=== PATIENT | female | born 1995 | race African-American/Black ===

== ENCOUNTER 2022-05-27 01:57 | Outpatient (CLI) | payer MEDICARE, OTHER, SELFPAY | END 2022-05-27 01:58 | disposition home or self-care (01) | LOC: AMB 06-05 11:19 | PROVIDERS: Visit Provider Internal Medicine | DX: R10.9 Unspecified abdominal pain (principal) | CPT/HCPCS: A0425; A0429 ==

== ENCOUNTER 2022-05-27 02:27 | Emergency (ER) | payer MEDICARE, OTHER, SELFPAY ==
[2022-05-27 02:29] VITALS: BP 120/78; PULSE 70; RESP 22; TEMP 36.3; O2SAT 95; BMI 50.6
--- NOTE | 2022-05-27 02:41 | ED_ITS ---
HPI - Abdominal Pain General Chief Complaint: Abdominal Pain Stated Complaint: Abdominal pain Time Seen by Provider: 05/27/22 02:29 History of Present Illness HPI narrative: Patient is a a 27-year-old woman with chronic abdominal pain comes in tonight stating that her abdominal pain is slightly worse than normal. She [facility]ad[facility] her [facility] this is not been terribly effective. The pain is in the mid abdomen and is paroxysmal. Comes in by ambulance for refuses pain medication route. She has had no fevers no chills no dysuria no nausea no vomiting. She has had both her gallbladder and her appendix removed. She does have renal insufficiency with baseline creatinine of roughly 3 secondary to lithium toxicity. Pain is mild no other associated symptoms. Related Data Home Medications Medication Instructions Recorded Confirmed acetaminophen 325 mg tablet mg 05/27/22 acetaminophen 500 mg tablet mg 05/27/22 albuterol sulfate 90 mcg/actuation INHALATION 05/27/22 aerosol inhaler amlodipine 10 mg tablet mg 05/27/22 atorvastatin 40 mg tablet mg 05/27/22 blood sugar diagnostic (Accu-Chek 05/27/22 05/27/22 Guide test strips) calcium carbonate 200 mg calcium mg 05/27/22 (500 mg) chewable tablet (Calcium Antacid) carbamide peroxide 6.5 % ear drops drp OTIC (EAR) 05/27/22 (Ear Drops (carbamide peroxide)) carboxymethylcellulose sodium 0.5 drp OPHTHALMIC (EYE) 05/27/22 % eye drops in a dropperette (Lubricating Plus) cholecalciferol (vitamin D3) 25 05/27/22 mcg (1,000 unit) capsule cholecalciferol (vitamin D3) 25 05/27/22 mcg (1,000 unit) tablet clindamycin phosphate 1 % topical TOPICAL 05/27/22 gel cyanocobalamin (vitamin B-12) mcg 05/27/22 1,000 mcg tablet (Vitamin B-12) cyanocobalamin (vitamin B-12) 100 mcg 05/27/22 mcg tablet (Vitamin B-12) cyclobenzaprine 5 mg tablet mg 05/27/22 diphenhydramine HCl 25 mg capsule mg 05/27/22 (Banophen) divalproex 250 mg tablet,delayed mg PO 05/27/22 release divalproex 500 mg tablet,extended mg PO 05/27/22 release 24 hr dulaglutide 0.75 mg/0.5 mL mg SUBCUT 05/27/22 subcutaneous pen injector (Trulicity) dulaglutide 1.5 mg/0.5 mL mg SUBCUT 05/27/22 subcutaneous pen injector (Trulicity) epinephrine 0.3 mg/0.3 mL 05/27/22 injection, auto-injector famotidine 20 mg tablet mg 05/27/22 fluoxetine 10 mg capsule mg 05/27/22 fluoxetine 20 mg capsule mg 05/27/22 fluticasone 100 mcg-salmeterol 50 INHALATION 05/27/22 mcg/dose blistr powdr for inhalation (Advair Diskus) gabapentin 100 mg capsule mg 05/27/22 lancets (Accu-Chek Fastclix Lancet 05/27/22 05/27/22 Drum) levothyroxine 100 mcg tablet mcg 05/27/22 liraglutide 0.6 mg/0.1 mL (18 mg/3 mg SUBCUT 05/27/22 mL) subcutaneous pen injector (Victoza 3-Guero) loratadine 10 mg tablet (Allergy mg 05/27/22 Relief (loratadine)) olanzapine 10 mg tablet mg 05/27/22 olanzapine 15 mg tablet mg 05/27/22 olanzapine 5 mg tablet mg 05/27/22 omeprazole 40 mg capsule,delayed mg 05/27/22 release ondansetron 4 mg disintegrating mg 05/27/22 tablet propranolol 40 mg tablet mg 05/27/22 tramadol 50 mg tablet mg 05/27/22 trazodone 100 mg tablet mg 05/27/22 Review of Systems Status of ROS Reports: 10 or more systems reviewed and unremarkable except as noted in History and below Exam Narrative: Exam Narrative: EXAM GENERAL: Patient appears comfortable and well. Obese EYES: No scleral icterus. LYMPH: No supraclavicular or cervical lymphadenopathy. SKIN: Visible skin seen during exam normal or with benign process only. EXT: No dependent lower extremity pedal edema. HEART: Regular rate and rhythm with no murmurs, rubs, or gallops. LUNGS: Clear to auscultation bilaterally with no crackles or wheezes. ABD: Soft, non tender, non distended. PSYCH: Good eye contact, speech is not pressured. Const: Vital Signs, click to edit/add: Vital Signs - 24 hr 05/27/22 02:29 Temperature 97.4 F L Pulse Rate [Right Brachial] 70 Respiratory Rate 22 Blood Pressure [Le ft Upper Arm] 120/78 Pulse Oximetry 95 Course Course Hospital Course: CBC basic metabolic panel UA reviewed and at baseline. Vital Signs Vital signs: Initial Vital Signs Temperature 97.4 F L 05/27/22 02:29 Temperature Source Temporal Artery Scan 05/27/22 02:29 Pulse Rate 70 05/27/22 02:29 Pulse Rhythm 05/27/22 02:29 Pulse Strength 3+ Normal 05/27/22 02:29 Respiratory Rate 22 05/27/22 02:29 Blood Pressure 120/78 05/27/22 02:29 Blood Pressure Mean 92 05/27/22 02:29 Blood Pressure Position Sitting 05/27/22 02:29 Pulse Oximetry 95 05/27/22 02:29 Oxygen Delivery Method 05/27/22 02:29 Vital Signs Temperature 97.4 F L 05/27/22 02:29 Pulse Rate 70 05/27/22 02:29 Respiratory Rate 22 05/27/22 02:29 Blood Pressure 120/78 05/27/22 02:29 Pulse Oximetry 95 05/27/22 02:29 Temperature 97.4 F L 05/27/22 02:29 Pulse Rate 70 05/27/22 02:29 Respiratory Rate 22 05/27/22 02:29 Blood Pressure 120/78 05/27/22 02:29 Pulse Oximetry 95 05/27/22 02:29 MDM - Abdominal Pain MDM Narrative Medical decision making narrative: Patient has complex history of do not believe she has acute abdominal issues tonight. Her abdominal exam is negative with aggressive palpation. She does have positive bowel sounds and states her symptoms are very mild. I did review her previous record and she has been in with similar presentations in the past with unremarkable workup. This time will continue her outpatient management she will follow-up with her primary physician as needed. Discharge Plan Discharge Clinical Impression: Abdominal pain Patient Disposition: Home, Self-Care Condition: Stable Instructions: Abdominal Pain (ED) Additional Instructions: Continue current care. Follow up with primary physician as needed. Discharge Diet: Regular Prescriptions: No Action atorvastatin 40 mg tablet 0RF acetaminophen 325 mg tablet 0RF cyanocobalamin (vitamin B-12) [Vitamin B-12] 100 mcg tablet 0RF divalproex 250 mg tablet,delayed release (DR/EC) PO 0RF olanzapine 5 mg tablet 0RF cyanocobalamin (vitamin B-12) [Vitamin B-12] 1,000 mcg tablet 0RF olanzapine 10 mg tablet 0RF (DME) Accu-Chek Guide test strips Strip MISCELLANEOUS 0RF Label Comments: USE TO TEST TWICE DAILY omeprazole 40 mg capsule,delayed release(DR/EC) 0RF tramadol 50 mg tablet 0RF acetaminophen 500 mg tablet 0RF levothyroxine 100 mcg tablet 0RF (DME) lancets [Accu-Chek Fastclix Lancet Drum] Mis MISCELLANEOUS 0RF Label Comments: USE DIRECTED propranolol 40 mg tablet 0RF famotidine 20 mg tablet 0RF clindamycin phosphate 1 % gel TOPICAL 0RF trazodone 100 mg tablet 0RF amlodipine 10 mg tablet 0RF diphenhydramine HCl [Banophen] 25 mg capsule 0RF divalproex 500 mg tablet extended release 24 hr PO 0RF calcium carbonate [Calcium Antacid] 200 mg calcium (500 mg) tablet,chewable 0RF fluoxetine 10 mg capsule 0RF Ear Drops (carbamide peroxide) 6.5 % drops OTIC (EAR) 0RF olanzapine 15 mg tablet 0RF gabapentin 100 mg capsule 0RF epinephrine 0.3 mg/0.3 mL auto-injector 0RF fluticasone propion-salmeterol [Advair Diskus] 100-50 mcg/dose blister with device INHALATION 0RF albuterol sulfate 90 mcg/actuation HFA aerosol inhaler INHALATION 0RF ondansetron 4 mg tablet,disintegrating 0RF fluoxetine 20 mg capsule 0RF loratadine [Allergy Relief (loratadine)] 10 mg tablet 0RF cholecalciferol (vitamin D3) 25 mcg (1,000 unit) capsule 0RF carboxymethylcellulose sodium [Lubricating Plus] 0.5 % dropperette OPHTHALMIC (EYE) 0RF cyclobenzaprine 5 mg tablet 0RF cholecalciferol (vitamin D3) 25 mcg (1,000 unit) tablet 0RF Victoza 3-Guero 0.6 mg/0.1 mL (18 mg/3 mL) pen injector SUBCUT 0RF Trulicity 0.75 mg/0.5 mL pen injector SUBCUT 0RF Trulicity 1.5 mg/0.5 mL pen injector SUBCUT 0RF Stand Alone Forms: [facility] Info Instructions
[2022-05-27 03:14] LABS: Basophils Absolute Auto 0.04 K/uL (0.00-0.30); Basophils Percent Auto 0.6 % (0.0-3.0); Eosinophils Absolute Auto 0.09 K/uL (0.00-0.50); Eosinophils Percent Auto 1.3 % (0.0-7.0); Hematocrit 35.9 % (33.0-51.0); Hemoglobin* 11.4 gm/dL (12.0-16.0); Immature Granulocytes Abs Auto 0.04 K/uL (0.00-0.30); Lymphocytes Absolute Auto 2.74 K/uL (0.90-2.90); Lymphocytes Percent Auto 38.2 % (20-44); Mean Corpuscular HGB Conc 32 gm/dL (32-36); Mean Corpuscular Hemoglobin 30 pg (26-34); Mean Corpuscular Volume 95 fL (80-100); Monocytes Percent Auto 9.6 % (0.0-11.0); Neutrophils Absolute Auto 3.57 K/uL (1.7-7.0); Neutrophils Percent Auto 49.7 % (42.0-72.0); Platelet Count* 130 K/uL (140-440); RDW Coefficient of Variation % 14.9 % (11.5-15.5); White Blood Count* 7.17 K/uL (4.50-11.00)
[2022-05-27 03:19] LABS: Appearance Urine Clear (Clear); Bilirubin Urine Negative (Negative); Blood Urine Trace-intact (Negative); Color Urine Yellow (Yellow); Glucose Urine Negative (Negative); Ketones Urine Negative (Negative); Leukocyte Esterase Urine Negative (Negative); Nitrite Urine Negative (Negative); Protein Urine 2+ (Negative); Urobilinogen Urine 0.2 (0.2-1.0)
[2022-05-27 03:25] LABS: Amorphous Sediment Urine Few
[2022-05-27 03:30] LABS: Chloride* 106 mmol/L (96-114); Potassium* 4.4 mmol/L (3.6-5.1); Sodium* 141 mmol/L (135-149)
[2022-05-27 03:32] LABS: Estimated Glomerular Filt Rate 21.45
[2022-05-27 03:33] LABS: Blood Urea Nitrogen* 40 mg/dL (5-24); Calcium* 9.1 mg/dL (8.4-10.6); Carbon Dioxide* 24 mmol/L (20-32); Glucose* 164 mg/dL (60-115)
--- NOTE | 2022-05-27 03:56 | ED.NURSE ---
call to pt care facility, they will picker/puller Pt at [id number]
[2022-05-27] MEDS: ONDANSETRON ODT 4 MG TAB PO (04:02)
--- NOTE | 2022-05-27 05:30 | ED.NURSE ---
0402 pt woken from sleep, states pain 08/05 RUQ, zofran admin po, pt bed adjusted and fell quickly back to sleep, waiting for ride.
[2022-05-27 07:30] VITALS: BP 128/83; PULSE 75; RESP 18; TEMP 36.4; O2SAT 90
--- NOTE | 2022-05-27 07:31 | ED.NURSE ---
pt woken from sleep for primary nurse assessment and documentation, pt reports pain improved however continues, is agreeable to discharge plan.
[2022-05-27 08:08] LABS: Slide Review Reflex No
--- NOTE | 2022-05-27 08:41 | ED.NURSE ---
was up to br to void. is awaiting ride from [facility].
--- NOTE | 2022-05-27 08:43 | ED.NURSE ---
has all her belongings. i pad and blanket, bag with books.
--- NOTE | 2022-05-27 09:09 | ED.NURSE ---
dr chaparro in room. does feel better. pain 02/02. does feel better.
== END 2022-05-27 08:40 | disposition home or self-care (01) ==
PROVIDERS: Emergency Provider Internal Medicine
DX: R10.9 Unspecified abdominal pain (principal)
CPT/HCPCS: 36415; 80048; 81003; 81015; 85025; 99283; A9270

== ENCOUNTER 2022-05-29 00:39 | Outpatient (CLI) | payer MEDICARE, OTHER, SELFPAY | END 2022-05-29 00:40 | disposition home or self-care (01) | LOC: AMB 06-06 06:33 | PROVIDERS: Visit Provider Family Medicine | DX: F91.9 Conduct disorder, unspecified (principal) | CPT/HCPCS: A0425; A0429 ==

== ENCOUNTER 2022-06-07 00:36 | Outpatient (CLI) | payer MEDICARE, OTHER, SELFPAY | END 2022-06-07 00:37 | disposition home or self-care (01) | LOC: AMB 06-13 20:42 | PROVIDERS: Visit Provider Family Medicine | DX: F91.9 Conduct disorder, unspecified (principal); S99.921A Unspecified injury of right foot, initial encounter; W22.8XXA Striking against or struck by other objects, initial encounter | CPT/HCPCS: A0425; A0429 ==

== ENCOUNTER 2022-06-14 22:45 | Outpatient (CLI) | payer MEDICARE, OTHER, SELFPAY | END 2022-06-14 22:46 | disposition home or self-care (01) | PROVIDERS: Visit Provider Family Medicine | DX: R10.9 Unspecified abdominal pain (principal) | CPT/HCPCS: A0425; A0427 ==

== ENCOUNTER 2022-06-14 23:16 | Emergency (ER) | payer MEDICARE, OTHER, SELFPAY ==
[2022-06-14 23:23] VITALS: BP 137/86; PULSE 68; RESP 16; TEMP 36.7; O2SAT 96; BMI 48.7
[2022-06-15 00:14] VITALS: O2SAT 94
--- NOTE | 2022-06-15 00:14 | CRLHL7_ITS ---
For Patients: As a result of the Century Cures Act, medical imaging exams and procedure reports are released immediately into your electronic medical record. You may view this report before your referring provider. If you have questions, please contact your health care provider. INDICATION: Chest pain. TECHNIQUE: Chest 1 views. COMPARISON: January 13, 2022. FINDINGS: Cardiovascular and mediastinum: Heart size and vasculature are normal in caliber and appearance. Lungs and pleural spaces: Lungs are clear. No sign of pleural effusion. No pneumothorax. Bones and soft tissues: No significant findings. IMPRESSION: No acute findings and no significant changes from the prior exam. Dictated by Torri Glover MD @ 06/15/2022 12:57:32 AM (Electronically Signed)
--- NOTE | 2022-06-15 00:18 | ED_ITS ---
HPI - Abdominal Pain General Time Seen by Provider: 00:05 Date Seen: 06/15/22 Chief Complaint: Abdominal Pain Stated Complaint: Abdominal Pain Time Seen by Provider: 06/14/22 23:30 Source: patient, RN notes reviewed and old records reviewed Mode of arrival: ambulatory Limitations: no limitations History of Present Illness HPI narrative: The patient is a 27-year-old female brought to the [facility] by EMS from her long term for evaluation of right lower quadrant pain. Patient noted the onset of pain today. It is associated with some difficulty breathing that was present earlier but not present at this time. Patient is sleepy in the room as it is past midnight. She does agree that she has a CPAP at home. She agrees that she has been coughing and has a runny nose. She denies any sore throat. She denies chest pain to this examiner. She received 1 COVID vaccination, the [employer]. Patient agrees that she still makes urine. She denies any urinary pain. She has not had fever or vomiting. Patient has had this discomfort before approximately 1 month ago. I asked her if she has ever been told what it was and she states no. I asked her if she had a workup for CT and she states ?they really did not do anything? We were able to access some records from [facility] where patient typically goes. She is seen frequently at [facility] for explosive disorder. Unsure why she came to [facility] although she has been here previously. Typically receives her care at [facility]. It a ppears that patient does have borderline intellectual functioning with bipolar disorder and 8 ADHD as well as type 2 diabetes and I am told by nursing staff she needs a kidney transplant as she has chronic kidney disease stage 5 with chief ever are less than 15. History is challenging as patient falls asleep. She is easily awoken and is appropriate. MD elicited complaint: abdominal pain Related Data Home Medications Medication Instructions Recorded Confirmed acetaminophen 325 mg tablet mg 05/27/22 acetaminophen 500 mg tablet 500 mg PO BID 05/27/22 06/14/22 albuterol sulfate 90 mcg/actuation 2 puff INHALATION TID PRN 05/27/22 06/14/22 aerosol inhaler amlodipine 10 mg tablet 10 mg PO DAILY 05/27/22 06/14/22 atorvastatin 40 mg tablet 40 mg PO HS 05/27/22 06/14/22 blood sugar diagnostic (Accu-Chek 05/27/22 05/27/22 Guide test strips) calcium carbonate 200 mg calcium 500 mg PO BID PRN 05/27/22 06/14/22 (500 mg) chewable tablet (Calcium Antacid) carbamide peroxide 6.5 % ear drops drp OTIC (EAR) 05/27/22 (Ear Drops (carbamide peroxide)) carboxymethylcellulose sodium 0.5 drp OPHTHALMIC (EYE) 05/27/22 % eye drops in a dropperette (Lubricating Plus) cholecalciferol (vitamin D3) 25 25 mcg PO DAILY 05/27/22 06/14/22 mcg (1,000 unit) capsule cholecalciferol (vitamin D3) 25 05/27/22 mcg (1,000 unit) tablet clindamycin phosphate 1 % topical TOPICAL 05/27/22 gel cyanocobalamin (vitamin B-12) mcg 05/27/22 1,000 mcg tablet (Vitamin B-12) cyanocobalamin (vitamin B-12) 100 mcg 05/27/22 mcg tablet (Vitamin B-12) cyclobenzaprine 5 mg tablet 5 mg PO BID PRN 05/27/22 06/14/22 diphenhydramine HCl 25 mg capsule mg 05/27/22 (Banophen) divalproex 250 mg tablet,delayed mg PO 05/27/22 release divalproex 500 mg tablet,extended 500 mg PO BID 05/27/22 06/14/22 release 24 hr dulaglutide 0.75 mg/0.5 mL 1.5 mg SUBCUT .weekly 05/27/22 06/14/22 subcutaneous pen injector (Trulicity) dulaglutide 1.5 mg/0.5 mL mg SUBCUT 05/27/22 subcutaneous pen injector (Trulicity) epinephrine 0.3 mg/0.3 mL 0.3 mg IM DAILY PRN 05/27/22 06/14/22 injection, auto-injector famotidine 20 mg tablet mg 05/27/22 fluoxetine 10 mg capsule 30 mg PO DAILY 05/27/22 06/14/22 fluoxetine 20 mg capsule mg 05/27/22 fluticasone 100 mcg-salmeterol 50 1 inh INHALATION DAILY 05/27/22 06/14/22 mcg/dose blistr powdr for inhalation (Advair Diskus) gabapentin 100 mg capsule 200 mg PO DAILY 05/27/22 06/14/22 lancets (Accu-Chek Fastclix Lancet 05/27/22 05/27/22 Drum) levothyroxine 100 mcg tablet 100 mcg PO DAILY 05/27/22 06/14/22 liraglutide 0.6 mg/0.1 mL (18 mg/3 mg SUBCUT 05/27/22 mL) subcutaneous pen injector (ParaEnginetoza 3-Guero) loratadine 10 mg tablet (Allergy 10 mg PO DAILY 05/27/22 06/14/22 Relief (loratadine)) olanzapine 10 mg tablet mg 05/27/22 olanzapine 15 mg tablet 15 mg PO DAILY PRN 05/27/22 06/14/22 olanzapine 5 mg tablet 5 mg PO DAILY PRN 05/27/22 06/14/22 omeprazole 40 mg capsule,delayed mg 05/27/22 release ondansetron 4 mg disintegrating mg 05/27/22 tablet propranolol 40 mg tablet 40 mg PO TID 05/27/22 06/14/22 tramadol 50 mg tablet 50 mg PO TID PRN 05/27/22 06/14/22 trazodone 100 mg tablet 150 mg PO HS PRN 05/27/22 06/14/22 icosapent ethyl 1 gram capsule 1 g PO BID 06/14/22 06/14/22 (Vascepa) melatonin 5 mg capsule 5 mg PO HS PRN 06/14/22 06/14/22 montelukast 10 mg tablet 10 mg PO HS 06/14/22 06/14/22 pantoprazole 40 mg tablet,delayed 40 mg PO DAILY 06/14/22 06/14/22 release sennosides 8.6 mg-docusate sodium 2 tab-cap PO BID 06/14/22 06/14/22 50 mg tablet (Senna Plus) sucralfate 1 gram tablet 1 g PO BID 06/14/22 06/14/22 triamcinolone acetonide 0.1 % 1 applic TOPICAL DAILY PRN 06/14/22 06/14/22 topical cream umeclidinium 62.5 mcg/actuation 1 inh INHALATION DAILY 06/14/22 06/14/22 blister powder for inhalation (Incruse Ellipta) urea 20 % topical cream 1 applic TOPICAL DAILY PRN 06/14/22 06/14/22 Allergies Allergy/AdvReac Type Severity Reaction Status Date / Time amoxicillin Allergy Verified 06/14/22 23:23 Penicillins Allergy Verified 06/14/22 23:23 ziprasidone [From Geodon] Allergy Verified 06/14/22 23:23 [place] Allergy Uncoded 06/14/22 23:23 Pineapple Allergy Uncoded 06/14/22 23:23 NSAID AdvReac Uncoded 06/14/22 23:23 Review of Systems Status of ROS Reports: unobtainable due to mental status Narrative Patient denies sore throat chest pain vomiting diarrhea or any recent trauma. Further attempted reviews of systems not successful. [facility] Medical History (Updated 06/15/22 @ 03:19 by Jaclyn Montano MD) Asthma Fistula GERD (gastroesophageal reflux disease) High cholesterol High triglycerides History of reactive attachment disorder Intermittent explosive disorder Kidney disease Mild intellectual disability Mood disorder Oppositional defiant disorder DEBRA (obstructive sleep apnea) Pervasive developmental disorder PTSD (post-traumatic stress disorder) Renal failure Type 2 diabetes mellitus Surgical History (Updated 06/14/22 @ 23:36 by Irineo Saravia RN) No significant past surgical history Social History Smoking Status: Never smoker How often do you have a drink containing alcohol: never AUDIT-C Alcohol total score: 0 Non-prescribed substance use: denies use service: No Exam Narrative: Exam Narrative: Patient is sleeping when I initially enter the room. She does not appear to be in any acute distress. When I wake her up she is oriented cooperative and answers questions appropriately. Eyes are clear and oral cavity with moist mucous membranes. Neck is supple with no lymphadenopathy heart with a regular rate and rhythm no nasal drainage lungs are with distant breath sounds but clear. Abdomen obese soft minimal tenderness noted in the right lower quadrant. There does not appear to be any rebound tenderness. No CVA tenderness with percussion. Lower extremities without unusual edema. Patient moves on the bed without difficulty. Const: Vital Signs, click to edit/add: Vital Signs - 24 hr 06/14/22 23:23 06/15/22 00:14 06/15/22 03:00 Temperature 98.1 F Pulse Rate [Left P ulse Oximeter] 68 75 Respiratory Rate 16 16 Blood Pressure [Le ft Upper Arm] 137/86 127/80 Pulse Oximetry 96 94 95 06/15/22 05:00 06/15/22 06:00 Temperature Pulse Rate [Left P ulse Oximeter] 71 76 Respiratory Rate 16 16 Blood Pressure [Le ft Upper Arm] 134/74 126/73 Pulse Oximetry 94 95 Documenting provider has reviewed patient's vital signs: yes Course Course Hospital Course: Patient is noted to have history of cognitive disorder type 2 diabetes stage 5 kidney failure as well as DEBRA presenting here with abdominal pain. It appears that she has had issues with abdominal pain in the past and evaluation for this at [facility] on 04/16/2022 she had a flat plate and upright x-ray of the abdomen with no acute findings and normal labs. She had a similar visit here in February with no acute findings. Given patient's history of DEBRA and Pickwickian syndrome I do have nursing staff apply 1 L of oxygen while she is sleeping. O2 sats upon her arrival were 96% but dropped to 90% when she was sleeping and now ir are at 94-96% on oxygen. acquisition cost estimator shows sinus rhythm Reevaluation(s) Reevaluation #1: I do awake Patti and she is informed that her labs are all reassuring with a normal white count, CRP and urinalysis. I do look at the pannus and I do not see any underlying cellulitis. I do see that her depends are binding in her this area I do straighten them out and she does state that that feels better. She is given ibuprofen 500 mg p.o. x1. Reevaluation #2: Patient is noted to been resting comfortably bleed throughout the night. She does awake when we go to check on her. She is stating that her pain is not any better but she has been able to sleep without difficulty. She does not have any red flag symptoms at this time. She is declining any Tylenol right now for discomfort. Laboratory values are reassuring. I did consider the possibility of doing a flat plate and upright but would like to avoid radiation in this patient who has had multiple workups for abdominal pain per the long term as well as she is with normal laboratory values. Vital Signs Vital signs: Initial Vital Signs Temperature 98.1 F 06/14/22 23:23 Temperature Source Temporal Artery Scan 06/14/22 23:23 Pulse Rate 68 06/14/22 23:23 Pulse Rhythm 06/14/22 23:23 Respiratory Rate 16 06/14/22 23:23 Blood Pressure 137/86 06/14/22 23:23 Blood Pressure Mean 103 06/14/22 23:23 Blood Pressure Position Sitting 06/14/22 23:23 Pulse Oximetry 96 06/14/22 23:23 Oxygen Delivery Method 06/14/22 23:23 Vital Signs Temperature 98.1 F 06/14/22 23:23 Pulse Rate 68 06/14/22 23:23 Respiratory Rate 16 06/14/22 23:23 Blood Pressure 137/86 06/14/22 23:23 Pulse Oximetry 96 06/14/22 23:23 Temperature 98.1 F 06/14/22 23:23 Pulse Rate 71 06/15/22 07:05 Respiratory Rate 18 06/15/22 07:05 Blood Pressure 126/73 06/15/22 06:00 Pulse Oximetry 95 06/15/22 06:00 MDM - Abdominal Pain MDM Narrative Medical decision making narrative: 1. Abdominal pain-patient has had previous visits for same. She is not experiencing any fever, chills, diarrhea and her laboratory values are reassuring with a normal white count and CRP. She actually felt better once I was able to straighten out her depends. She was given 500 mg p.o. of Tylenol. She is noted to be feeling better at this time. 2. Cough-patient has tested negative for COVID and her chest x-ray is without evidence of infiltrate. No coughing while she was sleeping tonight. 3. Pickwickian syndrome-patient is noted to have dropped her oxygen levels well sleeping in the emergency room. We added 1 L of oxygen while she is sleeping an d this kept her oxygen levels up. While she is awake oxygen levels are within normal limits. 4. . Chronic kidney disease-patient has a creatinine of 3.2 tonight this appears to be on par with previous values. She is currently awaiting a renal transplant. 5. . History of bipolar disorder-patient has had frequent visits to ER for explosive type behavior. She has been cooperative and pleasant in the emergency room tonight. History of type 2 diabetes-blood sugar 189 tonight 6. . Disposition-patient is discharged back into the care of her long term. For onset of new symptoms such as fever, vomiting, worsening pain would ask that they seek medical attention. Medical Records Attestation: I reviewed the patient's medical records. Lab Data Attestation: I reviewed the patient's lab results. Labs: Lab Results 06/15/22 06/15/22 06/15/22 Range/Units 00:21 00:38 00:38 WBC 6.14 (4.50-11.00) K/uL RBC 3.70 L (4.00-5.20) m/uL Hgb 11.0 L (12.0-16.0) gm/dL Hct 34.5 (33.0-51.0) % MCV 93 (80-100) fL MCH 30 (26-34) pg MCHC 32 (32-36) gm/dL RDW Coeff of Moshe 14.6 (11.5-15.5) % Plt Count 134 L (140-440) K/uL Neut % (Auto) 43.4 (42.0-72.0) % Lymph % (Auto) 42.8 (20-44) % [place] % (Auto) 10.9 (0.0-11.0) % Eos % (Auto) 1.6 (0.0-7.0) % Baso % (Auto) 0.3 (0.0-3.0) % Neut # (Auto) 2.66 (1.7-7.0) K/uL Lymph # (Auto) 2.63 (0.90-2.90) K/uL [place] # (Auto) 0.70 (0.00-0.90) K/UL Eos # (Auto) 0.10 (0.00-0.50) K/uL Baso # (Auto) 0.02 (0.00-0.30) K/uL Abs Immat Gran (auto) 0.06 (0.00-0.30) K/uL Sodium 140 (135-149) mmol/L Potassium 4.2 (3.6-5.1) mmol/L Chloride 108 (96-114) mmol/L Carbon Dioxide 24 (20-32) mmol/L BUN 43 H (5-24) mg/dL Creatinine 3.2 H (0.5-1.5) mg/dL Estimated Creat Clear 25.16 Estimated GFR 20 ml/min Glucose 189 H (60-115) mg/dL Calcium 9.0 (8.4-10.6) mg/dL Total Bilirubin 0.2 (0.1-1.5) mg/dL AST 19 (12-35) U/L ALT 20 (4-35) U/L Alkaline Phosphatase 54 (40-150) U/L C-Reactive Protein < 0.5 L (0.5-1.0) mg/dL Total Protein 6.6 (6.0-8.3) g/dL Albumin 3.7 (3.3-5.0) g/dL Urine Color (Yellow) Urine Appearance (Clear) Urine pH (5.0-8.5) Ur Specific [place] (1.000-1.030) Urine Protein (Negative) Urine Glucose (UA) (Negative) Urine Ketones (Negative) Urine Blood (Negative) Urine Nitrite (Negative) Urine Bilirubin (Negative) Urine Urobilinogen (0.2-1.0) Ur Leukocyte Esterase (Negative) Urine RBC (0-2) Urine WBC (0-5) Ur Squamous Epith Cells (None-Few) Urine Bacteria (None) SARS-CoV-2 (PCR) Negative SARS-CoV-2 (Negative) Influenza Type A (PCR) Negative PCR FLU A (Negative) Influenza Type B (PCR) Negative PCR FLU B (Negative) 06/15/22 Range/Units 00:50 WBC (4.50-11.00) K/uL RBC (4.00-5.20) m/uL Hgb (12.0-16.0) gm/dL Hct (33.0-51.0) % MCV (80-100) fL MCH (26-34) pg MCHC (32-36) gm/dL RDW Coeff of Moshe (11.5-15.5) % Plt Count (140-440) K/uL Neut % (Auto) (42.0-72.0) % Lymph % (Auto) (20-44) % [place] % (Auto) (0.0-11.0) % Eos % (Auto) (0.0-7.0) % Baso % (Auto) (0.0-3.0) % Neut # (Auto) (1.7-7.0) K/uL Lymph # (Auto) (0.90-2.90) K/uL [place] # (Auto) (0.00-0.90) K/UL Eos # (Auto) (0.00-0.50) K/uL Baso # (Auto) (0.00-0.30) K/uL Abs Immat Gran (auto) (0.00-0.30) K/uL Sodium (135-149) mmol/L Potassium (3.6-5.1) mmol/L Chloride (96-114) mmol/L Carbon Dioxide (20-32) mmol/L BUN (5-24) mg/dL Creatinine (0.5-1.5) mg/dL Estimated Creat Clear Estimated GFR ml/min Glucose (60-115) mg/dL Calcium (8.4-10.6) mg/dL Total Bilirubin (0.1-1.5) mg/dL AST (12-35) U/L ALT (4-35) U/L Alkaline Phosphatase (40-150) U/L C-Reactive Protein (0.5-1.0) mg/dL Total Protein (6.0-8.3) g/dL Albumin (3.3-5.0) g/dL Urine Color Yellow (Yellow) Urine Appearance Clear (Clear) Urine pH 6.0 (5.0-8.5) Ur Specific [place] 1.010 (1.000-1.030) Urine Protein 1+ A (Negative) Urine Glucose (UA) Negative (Negative) Urine Ketones Negative (Negative) Urine Blood Negative (Negative) Urine Nitrite Negative (Negative) Urine Bilirubin Negative (Negative) Urine Urobilinogen 0.2 (0.2-1.0) Ur Leukocyte Esterase Trace A (Negative) Urine RBC 0-2 (0-2) Urine WBC 0-2 (0-5) Ur Squamous Epith Cells None (None-Few) Urine Bacteria None (None) SARS-CoV-2 (PCR) (Negative) Influenza Type A (PCR) (Negative) Influenza Type B (PCR) (Negative) Imaging Data Chest x-ray: Attestation: I have reviewed the pertinent imaging results. My impression: Chronic lung markings without any acute infiltrates. Radiologist's impression: No acute findings Discharge Plan Discharge Clinical Impression: Cough, Abdominal pain, Pickwickian syndrome Patient Disposition: Home, Self-Care Condition: Improved Additional Instructions: In regards to your cough: You have tested negative for COVID today and your chest x-ray does not show any evidence of pneumonia. In regards to your abdominal pain: Your labs including her white count and inflammatory markers are all normal. In addition your urine does not show any evidence of urinary tract infection. You may use Tylenol as needed for discomfort. Seek medical attention for worsening symptoms and as needed. Prescriptions: No Action atorvastatin 40 mg tablet 40 mg PO HS 0RF acetaminophen 325 mg tablet 0RF cyanocobalamin (vitamin B-12) [Vitamin B-12] 100 mcg tablet 0RF divalproex 250 mg tablet,delayed release (DR/EC) PO 0RF olanzapine 5 mg tablet 5 mg PO DAILY PRN0RF Label Comments: am cyanocobalamin (vitamin B-12) [Vitamin B-12] 1,000 mcg tablet 0RF olanzapine 10 mg tablet 0RF (DME) Accu-Chek Guide test strips Strip MISCELLANEOUS 0RF Label Comments: USE TO TEST TWICE DAILY omeprazole 40 mg capsule,delayed release(DR/EC) 0RF tramadol 50 mg tablet 50 mg PO TID PRN0RF acetaminophen 500 mg tablet 500 mg PO BID 0RF levothyroxine 100 mcg tablet 100 mcg PO DAILY 0RF (DME) lancets [Accu-Chek Fastclix Lancet Drum] Misc MISCELLANEOUS 0RF Label Comments: USE DIRECTED propranolol 40 mg tablet 40 mg PO TID 0RF Label Comments: hold if pulse below 65 famotidine 20 mg tablet 0RF clindamycin phosphate 1 % gel TOPICAL 0RF trazodone 100 mg tablet 150 mg PO HS PRN0RF amlodipine 10 mg tablet 10 mg PO DAILY 0RF diphenhydramine HCl [Banophen] 25 mg capsule 0RF divalproex 500 mg tablet extended release 24 hr 500 mg PO BID 0RF calcium carbonate [Calcium Antacid] 200 mg calcium (500 mg) tablet,chewable 500 mg PO BID PRN0RF fluoxetine 10 mg capsule 30 mg PO DAILY 0RF Ear Drops (carbamide peroxide) 6.5 % drops OTIC (EAR) 0RF olanzapine 15 mg tablet 15 mg PO DAILY PRN0RF gabapentin 100 mg capsule 200 mg PO DAILY 0RF epinephrine 0.3 mg/0.3 mL auto-injector 0.3 mg IM DAILY PRN0RF fluticasone propion-salmeterol [Advair Diskus] 100-50 mcg/dose blister with device 1 inh INHALATION DAILY 0RF albuterol sulfate 90 mcg/actuation HFA aerosol inhaler 2 puff INHALATION TID PRN0RF ondansetron 4 mg tablet,disintegrating 0RF fluoxetine 20 mg capsule 0RF loratadine [Allergy Relief (loratadine)] 10 mg tablet 10 mg PO DAILY 0RF cholecalciferol (vitamin D3) 25 mcg (1,000 unit) capsule 25 mcg PO DAILY 0RF carboxymethylcellulose sodium [Lubricating Plus] 0.5 % dropperette OPHTHALMIC (EYE) 0RF cyclobenzaprine 5 mg tablet 5 mg PO BID PRN0RF cholecalciferol (vitamin D3) 25 mcg (1,000 unit) tablet 0RF Victoza 3-Guero 0.6 mg/0.1 mL (18 mg/3 mL) pen injector SUBCUT 0RF Trulicity 0.75 mg/0.5 mL pen injector 1.5 mg SUBCUT .weekly 0RF Label Comments: on fridays Trulicity 1.5 mg/0.5 mL pen injector SUBCUT 0RF sennosides-docusate sodium [Senna Plus] 8.6-50 mg tablet 2 tab-cap PO BID 0RF pantoprazole 40 mg tablet,delayed release (DR/EC) 40 mg PO DAILY 0RF sucralfate 1 gram tablet 1 g PO BID 0RF Incruse Ellipta 62.5 mcg/actuation blister with device 1 inh INHALATION DAILY 0RF icosapent ethyl [Vascepa] 1 gram capsule 1 g PO BID 0RF urea 20 % cream 1 applic TOPICAL DAILY PRN0RF montelukast 10 mg tablet 10 mg PO HS 0RF melatonin 5 mg capsule 5 mg PO HS PRN0RF triamcinolone acetonide 0.1 % cream 1 applic TOPICAL DAILY PRN0RF Follow Up/Referrals: Provider,Not a Local [Primary Care Provider] - Stand Alone Forms: [employer] Info Instructions
[2022-06-15 00:49] LABS: Basophils Absolute Auto 0.02 K/uL (0.00-0.30); Basophils Percent Auto 0.3 % (0.0-3.0); Eosinophils Percent Auto 1.6 % (0.0-7.0); Hematocrit 34.5 % (33.0-51.0); Immature Granulocytes Abs Auto 0.06 K/uL (0.00-0.30); Lymphocytes Absolute Auto 2.63 K/uL (0.90-2.90); Lymphocytes Percent Auto 42.8 % (20-44); Mean Corpuscular HGB Conc 32 gm/dL (32-36); Mean Corpuscular Hemoglobin 30 pg (26-34); Mean Corpuscular Volume 93 fL (80-100); Monocytes Percent Auto 10.9 % (0.0-11.0); Neutrophils Absolute Auto 2.66 K/uL (1.7-7.0); Neutrophils Percent Auto 43.4 % (42.0-72.0); Platelet Count* 134 K/uL (140-440); RDW Coefficient of Variation % 14.6 % (11.5-15.5); White Blood Count* 6.14 K/uL (4.50-11.00)
[2022-06-15 00:51] LABS: Slide Review Reflex No
[2022-06-15 01:01] LABS: Albumin* 3.7 g/dL (3.3-5.0); Chloride* 108 mmol/L (96-114); Potassium* 4.2 mmol/L (3.6-5.1); Sodium* 140 mmol/L (135-149)
[2022-06-15 01:04] LABS: Alanine Aminotransferase* 20 U/L (4-35); Alkaline Phosphatase* 54 U/L (40-150); Aspartate Amino Transferase* 19 U/L (12-35); Bilirubin Total* 0.2 mg/dL (0.1-1.5); Blood Urea Nitrogen* 43 mg/dL (5-24); Carbon Dioxide* 24 mmol/L (20-32); Creatinine* 3.2 mg/dL (0.5-1.5); Est. Creatinine Clearance* 25.16; Estimated Glomerular Filt Rate 20 ml/min; Total Protein* 6.6 g/dL (6.0-8.3)
[2022-06-15 01:05] LABS: Glucose* 189 mg/dL (60-115)
[2022-06-15 01:06] LABS: PCR FLU A Negative PCR FLU A (Negative); PCR FLU B Negative PCR FLU B (Negative)
[2022-06-15 01:07] LABS: C Reactive Protein* < 0.5 mg/dL (0.5-1.0)
[2022-06-15 01:07] LABS: SARS PCR* Negative SARS-CoV-2 (Negative)
[2022-06-15 01:19] LABS: Appearance Urine Clear (Clear); Bilirubin Urine Negative (Negative); Blood Urine Negative (Negative); Color Urine Yellow (Yellow); Glucose Urine Negative (Negative); Ketones Urine Negative (Negative); Leukocyte Esterase Urine Trace (Negative); Nitrite Urine Negative (Negative); Protein Urine 1+ (Negative); Urobilinogen Urine 0.2 (0.2-1.0)
[2022-06-15 01:40] LABS: RBC Urine 0-2 (0-2); WBC Urine 0-2 (0-5)
[2022-06-15 03:00] VITALS: BP 127/80; PULSE 75; RESP 16; O2SAT 95
[2022-06-15 05:00] VITALS: BP 134/74; PULSE 71; RESP 16; O2SAT 94
[2022-06-15 06:00] VITALS: BP 126/73; PULSE 76; RESP 16; O2SAT 95
[2022-06-15 07:05] VITALS: PULSE 71; RESP 18
== END 2022-06-15 07:06 | disposition home or self-care (01) ==
PROVIDERS: Emergency Provider Family Medicine
DX: R10.9 Unspecified abdominal pain (principal); R05.9 Cough, unspecified; E66.2 Morbid (severe) obesity with alveolar hypoventilation; Z68.42 Body mass index [BMI] 45.0-49.9, adult
CPT/HCPCS: 36415; 71045; 80053; 81003; 81015; 85025; 86140; 87502; 87635; 99284; 99285

== ENCOUNTER 2022-06-15 07:06 | Outpatient (CLI) | payer MEDICARE, OTHER, SELFPAY | END 2022-06-15 07:07 | disposition home or self-care (01) | PROVIDERS: Visit Provider Family Medicine | DX: F29 Unspecified psychosis not due to a substance or known physiological condition (principal) | CPT/HCPCS: A0425; A0428 ==

== ENCOUNTER 2022-06-26 20:00 | Outpatient (CLI) | payer MEDICARE, OTHER, SELFPAY | END 2022-06-26 20:01 | disposition home or self-care (01) | LOC: AMB 07-12 19:50 | PROVIDERS: Visit Provider Internal Medicine | DX: R45.851 Suicidal ideations (principal); R44.0 Auditory hallucinations | CPT/HCPCS: A0425; A0429 ==

== ENCOUNTER 2022-07-08 22:40 | Outpatient (CLI) | payer MEDICARE, OTHER, SELFPAY | END 2022-07-08 22:41 | disposition home or self-care (01) | LOC: AMB 07-22 19:26 | PROVIDERS: Visit Provider Family Medicine | DX: F91.9 Conduct disorder, unspecified (principal) | CPT/HCPCS: A0425; A0429 ==

== ENCOUNTER 2022-08-16 22:18 | Outpatient (CLI) | payer MEDICARE, OTHER, SELFPAY | END 2022-08-16 22:19 | disposition home or self-care (01) | LOC: AMB 09-13 16:42 | PROVIDERS: Visit Provider Family Medicine | DX: S09.90XA Unspecified injury of head, initial encounter (principal); F91.9 Conduct disorder, unspecified; W03.XXXA Other fall on same level due to collision with another person, initial encounter; Y92.049 Unspecified place in boarding-house as the place of occurrence of the external cause | CPT/HCPCS: A0425; A0427 ==

== ENCOUNTER 2022-08-16 22:49 | Emergency (ER) | payer MEDICARE, OTHER, SELFPAY ==
[2022-08-16 22:55] VITALS: BP 133/82; PULSE 75; RESP 18; TEMP 36.8; O2SAT 95; BMI 50.3
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
--- NOTE | 2022-08-16 23:03 | CRLHL7_ITS ---
For Patients: As a result of the Cures Act, medical imaging exams and procedure reports are released immediately into your electronic medical record. You may view this report before your referring provider. If you have questions, please contact your health care provider. INDICATION: Trauma. TECHNIQUE: Chest 2 views. COMPARISON: None. FINDINGS: Cardiovascular and mediastinum: Heart size and vasculature are normal in caliber and appearance. Lungs and pleural spaces: Lungs are clear. No sign of infiltrate or mass. No sign of pleural effusion. No pneumothorax. Bones and soft tissues: No significant findings. IMPRESSION: No acute findings and no significant changes from the prior exam. Dictated by Brady Redding MD @ 08/16/2022 11:38:38 PM (Electronically Signed)
--- NOTE | 2022-08-16 23:03 | CRLHL7_ITS ---
For Patients: As a result of the Cures Act, medical imaging exams and procedure reports are released immediately into your electronic medical record. You may view this report before your referring provider. If you have questions, please contact your health care provider. INDICATION: Trauma. TECHNIQUE: Cervical spine 4 view. COMPARISON: None. FINDINGS: Bones: Alignment is normal. No fractures or significant bone lesions. Joints: Disc spaces and facets are unremarkable. Soft tissues: Unremarkable. Dictated by Brady Redding MD @ 08/16/2022 11:40:47 PM (Electronically Signed)
--- NOTE | 2022-08-16 23:03 | CRLHL7_ITS ---
For Patients: As a result of the Cures Act, medical imaging exams and procedure reports are released immediately into your electronic medical record. You may view this report before your referring provider. If you have questions, please contact your health care provider. INDICATION: Fall. TECHNIQUE: CT head without contrast. COMPARISON: None. FINDINGS: CSF spaces: Within normal limits for age. Brain parenchyma and extra-axial spaces: The haley-white differentiation is normal. No sign of mass, hemorrhage, or midline shift. No extra-axial fluid collection. Skull base and calvarium: Complete mucoperiosteal thickening the right maxillary sinus with hyperdense material. Additional mild mucoperiosteal thickening the right frontal, right ethmoidal, left sphenoid sinuses. Subtle bubbly lucencies to suggest sinusitis. The mastoid air cells demonstrate no acute or significant findings. The visualized orbits are grossly unremarkable. No skull fractures. IMPRESSION: Unremarkable noncontrast head CT. Please note that all CT scans at this facility use dose modulation, iterative reconstruction, and/or weight-based dosing when appropriate to reduce radiation dose to as low as reasonably achievable. Dictated by Brady Redding MD @ 08/16/2022 11:37:15 PM (Electronically Signed)
[2022-08-16 23:16] VITALS: O2SAT 94
[2022-08-16] MEDS: ACETAMINOPHEN 500 MG TABLET 1000 MG PO (23:22)
--- NOTE | 2022-08-17 00:25 | ED.NURSE ---
update via phone to pt living facility, they agreed to coming to transport pt back home.
[2022-08-17 01:16] VITALS: BP 140/78; PULSE 70; RESP 18
== END 2022-08-17 01:17 | disposition home or self-care (01) ==
PROVIDERS: Emergency Provider Family Medicine
DX: S09.90XA Unspecified injury of head, initial encounter (principal); W18.30XA Fall on same level, unspecified, initial encounter; Y93.9 Activity, unspecified; Y92.099 Unspecified place in other non-institutional residence as the place of occurrence of the external cause; Y99.9 Unspecified external cause status
CPT/HCPCS: 70450; 71046; 72040; 94761; 99284; A9270

== ENCOUNTER 2022-08-27 12:35 | Outpatient (CLI) | payer MEDICARE, OTHER, SELFPAY | END 2022-08-27 12:36 | disposition home or self-care (01) | LOC: AMB 09-27 15:01 | PROVIDERS: Visit Provider Family Medicine | DX: M54.9 Dorsalgia, unspecified (principal); R39.89 Other symptoms and signs involving the genitourinary system | CPT/HCPCS: A0425; A0428 ==

== ENCOUNTER 2022-09-13 22:22 | Outpatient (CLI) | payer MEDICARE, OTHER, SELFPAY | END 2022-09-13 22:23 | disposition home or self-care (01) | LOC: AMB 09-19 12:40 | PROVIDERS: Visit Provider Family Medicine | DX: R10.9 Unspecified abdominal pain (principal) | CPT/HCPCS: A0425; A0427 ==

== ENCOUNTER 2022-09-13 22:52 | Emergency (ER) | payer MEDICARE, OTHER, SELFPAY ==
[2022-09-13 23:04] VITALS: BP 138/79; PULSE 76; RESP 18; TEMP 37; O2SAT 99; BMI 49.9
--- NOTE | 2022-09-13 23:12 | CRLHL7_ITS ---
For Patients: As a result of the Century Cures Act, medical imaging exams and procedure reports are released immediately into your electronic medical record. You may view this report before your referring provider. If you have questions, please contact your health care provider. Indication: Right-sided abdominal pain.. Technique: Abdomen 2 view. Comparison: None. Findings: Bowel: Bowel pattern is normal. The amount of colonic stool is within normal limits. Right upper quadrant clips are noted likely related to prior cholecystectomy. IUD is identified in the pelvis. No air-fluid levels on the upright imaging. Other: No sign of free air. No sign of soft tissue mass. No suspicious calcifications. Osseous structures are unremarkable for age. Impression: No acute findings. cholecystectomy clips. IUD in the pelvis. Dictated by Torri Glover MD @ 09/14/2022 12:06:17 AM (Electronically Signed)
[2022-09-13 23:31] LABS: Appearance Urine Clear (Clear); Bilirubin Urine Negative (Negative); Blood Urine Negative (Negative); Color Urine Yellow (Yellow); Glucose Urine Negative (Negative); Ketones Urine Negative (Negative); Leukocyte Esterase Urine 1+ (Negative); Nitrite Urine Negative (Negative); Protein Urine 1+ (Negative); Urobilinogen Urine 0.2 (0.2-1.0)
[2022-09-13] MEDS: ACETAMINOPHEN 325 MG TABLET 650 MG PO (23:41)
[2022-09-13] MEDS: 0.9 % SODIUM CHLORIDE 500 ML 500 ML IV (23:41)
[2022-09-13 23:42] LABS: Bacteria Urine Moderate; RBC Urine 0-2 (0-2); Squamous Epithelial Cell Urine Moderate (None-Few)
[2022-09-13 23:43] LABS: White Blood Count* 7.11 K/uL (4.50-11.00)
[2022-09-13 23:43] LABS: HCG Qualitative* Negative (Negative)
[2022-09-13 23:44] LABS: Basophils Percent Auto 0.4 % (0.0-3.0); Eosinophils Percent Auto 2.4 % (0.0-7.0); Hematocrit 36.4 % (33.0-51.0); Hemoglobin* 11.4 gm/dL (12.0-16.0); Mean Corpuscular HGB Conc 31 gm/dL (32-36); Mean Corpuscular Hemoglobin 30 pg (26-34); Mean Corpuscular Volume 97 fL (80-100); Monocytes Percent Auto 12.4 % (0.0-11.0); Neutrophils Percent Auto 45.8 % (42.0-72.0); Platelet Count* 150 K/uL (140-440); Red Blood Count 3.75 m/uL (4.00-5.20); Slide Review Reflex No
[2022-09-13 23:50] LABS: Albumin* 4.1 g/dL (3.3-5.0); Chloride* 104 mmol/L (96-114)
[2022-09-13 23:51] LABS: Potassium* 4.7 mmol/L (3.6-5.1); Sodium* 139 mmol/L (135-149)
[2022-09-13 23:53] LABS: Amylase* 43 U/L (18-89); Aspartate Amino Transferase* 19 U/L (12-35); Bilirubin Direct* 0.3 mg/dL (0.0-0.5); Bilirubin Total* 0.3 mg/dL (0.1-1.5); Blood Urea Nitrogen* 35 mg/dL (5-24); Carbon Dioxide* 26 mmol/L (20-32); Creatinine* 3.3 mg/dL (0.5-1.5); Est. Creatinine Clearance* 23.45; Estimated Glomerular Filt Rate 19 ml/min; Glucose* 172 mg/dL (60-115); Total Protein* 7.6 g/dL (6.0-8.3)
[2022-09-13 23:54] LABS: Alanine Aminotransferase* 19 U/L (4-35); Alkaline Phosphatase* 62 U/L (40-150); Calcium* 9.7 mg/dL (8.4-10.6); Lipase* 165 U/L (23-300)
--- NOTE | 2022-09-13 23:56 | ED.ABDPAIN ---
HPI - Abdominal Pain General Date Seen: 09/13/22 Chief Complaint: Abdominal Pain Stated Complaint: Abdominal pain Time Seen by Provider: 09/13/22 22:57 Source: patient and old records reviewed Mode of arrival: EMS Limitations: no limitations History of Present Illness HPI narrative: patient is a 27-year-old female with a long history of abdominal pain who presents here for worsening abdominal pain. She describes over the right side of her abdomen, she has had all day, but admits to me that she has had for longer than 1 day 2. She is eating and drinking normally, and ate 3 meals today. She has had no fevers or chills, no nausea vomiting, and no relation to the food. She denies no trauma or falls or injury. No dysuria frequency, had a normal bowel movement today. She does have a history of chronic abdominal pain with multiple workups at both [facility]. She has recently underwent an EGD with ultrasound guided biopsies of small bowel done by [facility]. This was done 10 days ago as an outpatient. Indication was this was elevated lipase in the past, and ongoing abdominal pain. she is normally in a group h Pertinent past history: constipation Onset (ago): day(s) Pain Consistency: constant Location: RUQ and RLQ Severity: moderate Quality: cramping Radiation: none Migration to: no migration Exacerbating factors: nothing Relieving factors: nothing Context: recent surgery/procedure and history of similar episodes Associated symptoms: denies other symptoms Treatments prior to arrival: other Related Data Patient : No Home Medications Medication Instructions Recorded Confirmed acetaminophen 325 mg tablet 650 mg PO BID PRN 05/27/22 08/16/22 acetaminophen 500 mg tablet 500 mg PO BID 05/27/22 08/16/22 albuterol sulfate 90 mcg/actuation 1 - 2 puff inhalation TID PRN 05/27/22 08/16/22 aerosol inhaler amlodipine 10 mg tablet 10 mg PO DAILY 05/27/22 08/16/22 atorvastatin 40 mg tablet 40 mg PO HS 05/27/22 08/16/22 blood sugar diagnostic (Accu-Chek 05/27/22 08/16/22 Guide test strips) calcium carbonate 200 mg calcium 500 mg PO BID PRN 05/27/22 08/16/22 (500 mg) chewable tablet (Calcium Antacid) cholecalciferol (vitamin D3) 25 25 mcg PO DAILY 05/27/22 08/16/22 mcg (1,000 unit) capsule cyclobenzaprine 5 mg tablet 5 mg PO Q8H PRN 05/27/22 08/16/22 divalproex 500 mg tablet,extended 500 mg PO BID 05/27/22 08/16/22 release 24 hr dulaglutide 1.5 mg/0.5 mL 1.5 mg subcut QWEEK 05/27/22 08/16/22 subcutaneous pen injector (Trulicity) epinephrine 0.3 mg/0.3 mL 0.3 mg IM DAILY PRN 05/27/22 08/16/22 injection, auto-injector fluoxetine 10 mg capsule 30 mg PO DAILY 05/27/22 08/16/22 fluticasone 100 mcg-salmeterol 50 1 inh inhalation DAILY 05/27/22 08/16/22 mcg/dose blistr powdr for inhalation (Advair Diskus) gabapentin 100 mg capsule 300 mg PO DAILY 05/27/22 08/16/22 lancets (Accu-Chek Fastclix Lancet 05/27/22 08/16/22 Drum) levothyroxine 100 mcg tablet 100 mcg PO DAILY 05/27/22 08/16/22 liraglutide 0.6 mg/0.1 mL (18 mg/3 mg subcut 05/27/22 mL) subcutaneous pen injector (Victoza 3-Guero) loratadine 10 mg tablet (Allergy 10 mg PO DAILY 05/27/22 08/16/22 Relief (loratadine)) olanzapine 15 mg tablet 15 mg PO DAILY PRN 05/27/22 08/16/22 olanzapine 5 mg tablet 5 mg PO DAILY 05/27/22 08/16/22 ondansetron 4 mg disintegrating 8 mg translingual Q8H PRN 05/27/22 08/16/22 tablet tramadol 50 mg tablet 50 mg PO TID PRN 05/27/22 08/16/22 icosapent ethyl 1 gram capsule 2 g PO BID 06/14/22 08/16/22 (Vascepa) melatonin 5 mg capsule 5 mg PO HS PRN 06/14/22 08/16/22 montelukast 10 mg tablet 10 mg PO HS 06/14/22 08/16/22 pantoprazole 40 mg tablet,delayed 40 mg PO DAILY 06/14/22 08/16/22 release sennosides 8.6 mg-docusate sodium 2 tab-cap PO BID 06/14/22 08/16/22 50 mg tablet (Senna Plus) sucralfate 1 gram tablet 1 g PO BID 06/14/22 08/16/22 umeclidinium 62.5 mcg/actuation 1 inh inhalation DAILY 06/14/22 08/16/22 blister powder for inhalation (Incruse Ellipta) urea 20 % topical cream 1 applic topical DAILY PRN 06/14/22 08/16/22 calcitriol 0.25 mcg capsule 0.25 mcg PO DAILY 08/16/22 08/16/22 glycerin (adult) (Fleet Glycerin 1 supp [place] DAILY PRN 08/16/22 08/16/22 (Adult) rectal suppository) propranolol 60 mg tablet 60 mg PO TID 08/16/22 08/16/22 trazodone 150 mg tablet 150 mg PO HS 08/16/22 08/16/22 Allergies Allergy/AdvReac Type Severity Reaction Status Date / Time ziprasidone [From Geodon] Allergy Severe Anaphylaxis Verified 09/13/22 23:08 amoxicillin Allergy Intermediate Hives Verified 09/13/22 23:08 Penicillins Allergy Intermediate Hives Verified 09/13/22 23:08 amantadine [From Symmetrel] AdvReac Intermediate sedation Verified 09/13/22 23:08 [place] Allergy Severe renal Uncoded 08/17/22 00:01 failure [place] Allergy Intermediate Hives Uncoded 08/17/22 00:01 NSAID AdvReac Intermediate kidney Uncoded 08/16/22 23:59 disease Review of Systems Status of ROS Reports: 10 or more systems reviewed and unremarkable except as noted in History and below and unobtainable due to medical condition Narrative patient is grossly negative under review of systems, given her level of functioning I am not sure if we can trust this. [facility] Medical History Asthma Fistula GERD (gastroesophageal reflux disease) High cholesterol High triglycerides History of reactive attachment disorder Intermittent explosive disorder Kidney disease Mild intellectual disability Mood disorder Oppositional defiant disorder DEBRA (obstructive sleep apnea) Pervasive developmental disorder PTSD (post-traumatic stress disorder) Renal failure Type 2 diabetes mellitus Surgical History No significant past surgical history Social History Smoking Status: Never smoker How often do you have a drink containing alcohol: never AUDIT-C Alcohol total score: 0 Non-prescribed substance use: denies use service: No Exam Narrative: Exam Narrative: Patient is alert oriented nontoxic with normal vital signs she is seen in room 5. She complains of abdominal pain on the right side of her abdomen, her pupils are equal round reactive tonight without scleral icterus, TMs are normal oropharynx is normal with normal hydration status, there is no meningismus, her chest is clear bilaterally no wheezing crackles noted heart sounds are normal. She is able to sit up for me quite easily. Complains of pain in the right side of her abdomen her abdomen is grossly obese. With distraction she really does not have a lot abdominal pain and she is soft. Her bowel sounds are normal throughout all quadrants, there is no evidence of any rashes, maybe a little bit irritation underneath her pannus on the left. No CVA tenderness is elicited, she moves all extremities independently and well. And tells me that she is hungry. I have the information from her recent visit to [facility], on September 04, where they did the biopsies. I do not have the results of the biopsies, but it was uneventful. Const: Vital Signs, click to edit/add: Vital Signs - 24 hr 09/13/22 23:04 Temperature 98.6 F Pulse Rate [Right Pulse Oximeter] 76 Respiratory Rate 18 Blood Pressure [Ri ght Upper Arm] 138/79 Pulse Oximetry 99 Oxygen Delivery Me thod Room Air Documenting provider has reviewed patient's vital signs: yes Course Course Hospital Course: discussed with the patient, I find no evidence of any significant abnormality, she is constipated with a right-sided colonic burden. I suspect that this is what is causing her pain, I will [facility], she can try some MiraLax tomorrow and continue her bowel regime. Vital Signs Vital signs: Initial Vital Signs Temperature 98.6 F 09/13/22 23:04 Temperature Source Temporal Artery Scan 09/13/22 23:04 Pulse Rate 76 09/13/22 23:04 Respiratory Rate 18 09/13/22 23:04 Blood Pressure 138/79 09/13/22 23:04 Blood Pressure Mean 98 09/13/22 23:04 Blood Pressure Position Sitting 09/13/22 23:04 Pulse Oximetry 99 09/13/22 23:04 Oxygen Delivery Method 09/13/22 23:04 Vital Signs Temperature 98.6 F 09/13/22 23:04 Pulse Rate 76 09/13/22 23:04 Respiratory Rate 18 09/13/22 23:04 Blood Pressure 138/79 09/13/22 23:04 Pulse Oximetry 99 09/13/22 23:04 Oxygen Delivery Method 09/13/22 23:04 Temperature 98.6 F 09/13/22 23:04 Pulse Rate 76 09/13/22 23:04 Respiratory Rate 18 09/13/22 23:04 Blood Pressure 138/79 09/13/22 23:04 Pulse Oximetry 99 09/13/22 23:04 Oxygen Delivery Method 09/13/22 23:04 MDM - Abdominal Pain MDM Narrative Medical decision making narrative: During the evaluation of this patient I considered multiple differential diagnosis including life-threatening differentials which are appendicitis, aortic aneurysm, mesenteric ischemia, bowel perforation, ectopic , volvulus and bowel obstruction, other differential diagnosis include but are not limited to inflammatory bowel disease, cholecystitis, pancreatitis, hepatitis, gastritis, GERD, diverticulitis, peptic ulcer disease, pyelonephritis/UTI, renal colic/stone, pelvic inflammatory disease, cervicitis, endometritis, intrauterine , dysfunctional uterine bleeding, ovarian cyst/torsion, spontaneous as well as other etiologies She has had previous appendectomy and cholecystectomy, I do not think this is a bowel obstruction, given her past history of chronic abdominal pain, and kidney disease, we will treat her with 1 dose of Tylenol here, and some fluids. Will get a flat and upright x-ray, along with the labs. For labs are normal. Then I think we can [facility] her at this [facility] Medical Records Attestation: I reviewed the patient's medical records. Lab Data Attestation: I reviewed the patient's lab results. Labs: Lab Results 09/13/22 09/13/22 09/13/22 Range/Units 23:20 23:22 23:30 WBC 7.11 (4.50-11.00) K/uL RBC 3.75 L (4.00-5.20) m/uL Hgb 11.4 L (12.0-16.0) gm/dL Hct 36.4 (33.0-51.0) % MCV 97 (80-100) fL MCH 30 (26-34) pg MCHC 31 L (32-36) gm/dL Plt Count 150 (140-440) K/uL Neut % (Auto) 45.8 (42.0-72.0) % Lymph % (Auto) 38.0 (20-44) % [place] % (Auto) 12.4 H (0.0-11.0) % Eos % (Auto) 2.4 (0.0-7.0) % Baso % (Auto) 0.4 (0.0-3.0) % Neut # (Auto) 3.30 (1.7-7.0) K/uL Lymph # (Auto) 2.70 (0.90-2.90) K/uL [place] # (Auto) 0.90 (0.00-0.90) K/UL Eos # (Auto) 0.20 (0.00-0.50) K/uL Baso # (Auto) 0.00 (0.00-0.30) K/uL Abs Immat Gran (auto) 0.10 (0.00-0.30) K/uL Imm/Tot Granulo (auto) 1.0 % Sodium (135-149) mmol/L Potassium (3.6-5.1) mmol/L Chloride (96-114) mmol/L Carbon Dioxide (20-32) mmol/L BUN (5-24) mg/dL Creatinine (0.5-1.5) mg/dL Estimated Creat Clear Estimated GFR ml/min Glucose (60-115) mg/dL Calcium (8.4-10.6) mg/dL Total Bilirubin (0.1-1.5) mg/dL Direct Bilirubin (0.0-0.5) mg/dL AST (12-35) U/L ALT (4-35) U/L Alkaline Phosphatase (40-150) U/L Total Protein (6.0-8.3) g/dL Albumin (3.3-5.0) g/dL Amylase (18-89) U/L Lipase (23-300) U/L HCG, Qual Negative (Negative) Urine Color Yellow (Yellow) Urine Appearance Clear (Clear) Urine pH 7.0 (5.0-8.5) Ur Specific [place] 1.010 (1.000-1.030) Urine Protein 1+ A (Negative) Urine Glucose (UA) Negative (Negative) Urine Ketones Negative (Negative) Urine Blood Negative (Negative) Urine Nitrite Negative (Negative) Urine Bilirubin Negative (Negative) Urine Urobilinogen 0.2 (0.2-1.0) Ur Leukocyte Esterase 1+ A (Negative) Urine RBC 0-2 (0-2) Urine WBC 2-5 (0-5) Ur Squamous Epith Cells Moderate A (None-Few) Urine Bacteria Moderate A (None) SARS-CoV-2 (PCR) Negative SARS-CoV-2 (Negative) Influenza Type A (PCR) Negative PCR FLU A (Negative) Influenza Type B (PCR) Negative PCR FLU B (Negative) RSV (PCR) Negative PCR RSV (Negative) 09/13/22 Range/Units 23:30 WBC (4.50-11.00) K/uL RBC (4.00-5.20) m/uL Hgb (12.0-16.0) gm/dL Hct (33.0-51.0) % MCV (80-100) fL MCH (26-34) pg MCHC (32-36) gm/dL Plt Count (140-440) K/uL Neut % (Auto) (42.0-72.0) % Lymph % (Auto) (20-44) % [place] % (Auto) (0.0-11.0) % Eos % (Auto) (0.0-7.0) % Baso % (Auto) (0.0-3.0) % Neut # (Auto) (1.7-7.0) K/uL Lymph # (Auto) (0.90-2.90) K/uL [place] # (Auto) (0.00-0.90) K/UL Eos # (Auto) (0.00-0.50) K/uL Baso # (Auto) (0.00-0.30) K/uL Abs Immat Gran (auto) (0.00-0.30) K/uL Imm/Tot Granulo (auto) % Sodium 139 (135-149) mmol/L Potassium 4.7 (3.6-5.1) mmol/L Chloride 104 (96-114) mmol/L Carbon Dioxide 26 (20-32) mmol/L BUN 35 H (5-24) mg/dL Creatinine 3.3 H (0.5-1.5) mg/dL Estimated Creat Clear 23.45 Estimated GFR 19 ml/min Glucose 172 H (60-115) mg/dL Calcium 9.7 (8.4-10.6) mg/dL Total Bilirubin 0.3 (0.1-1.5) mg/dL Direct Bilirubin 0.3 (0.0-0.5) mg/dL AST 19 (12-35) U/L ALT 19 (4-35) U/L Alkaline Phosphatase 62 (40-150) U/L Total Protein 7.6 (6.0-8.3) g/dL Albumin 4.1 (3.3-5.0) g/dL Amylase 43 (18-89) U/L Lipase 165 (23-300) U/L HCG, Qual (Negative) Urine Color (Yellow) Urine Appearance (Clear) Urine pH (5.0-8.5) Ur Specific [place] (1.000-1.030) Urine Protein (Negative) Urine Glucose (UA) (Negative) Urine Ketones (Negative) Urine Blood (Negative) Urine Nitrite (Negative) Urine Bilirubin (Negative) Urine Urobilinogen (0.2-1.0) Ur Leukocyte Esterase (Negative) Urine RBC (0-2) Urine WBC (0-5) Ur Squamous Epith Cells (None-Few) Urine Bacteria (None) SARS-CoV-2 (PCR) (Negative) Influenza Type A (PCR) (Negative) Influenza Type B (PCR) (Negative) RSV (PCR) (Negative) Imaging Data Abdominal x-ray: Attestation: I have reviewed the pertinent imaging results. My impression: two-view flat and upright abdominal x-rays obtained, large amount of stool in the right side is noted, with stool throughout the colon, clips from previous cholecystectomy are noted, and IUD is in place. No evidence of a bowel obstruction, nonspecific gas pattern, with no free air. When reviewed with previous CT quality control specialist film from 2020, June no appreciable change. Radiologist's impression: Patient: GEORGE ZAMORANO Facility: [facility] . Site : 1995 Study: XRay Abdomen 2 views-09/13/2022 11:57:22 PM Ordering Physician: Jelly Armijo Final Report: Indication: Right-sided abdominal pain.. Technique: Abdomen 2 view. Comparison: None. Findings: Bowel: Bowel pattern is normal. The amount of colonic stool is within normal limits. Right upper quadrant clips are noted likely related to prior cholecystectomy. IUD is identified in the pelvis. No air-fluid levels on the upright imaging. Other: No sign of free air. No sign of soft tissue mass. No suspicious calcifications. Osseous structures are unremarkable for age. Impression: No acute findings. cholecystectomy clips. IUD in the pelvis. Dictated by Torri Glover MD @ 09/14/2022 12:06:17 AM (Electronic Signature) Discharge Plan Discharge Clinical Impression: Abdominal pain, Constipation Patient Disposition: Home, Self-Care Condition: Stable Instructions: Constipation (DC) Additional Instructions: Back to [facility], MiraLax 1 cap full twice daily with 20 oz of water twice daily, till good effect. Discussed with primary care physician, Prescriptions: No Action atorvastatin 40 mg tablet 40 mg PO HS acetaminophen 325 mg tablet 650 mg PO BID PRN olanzapine 5 mg tablet 5 mg PO DAILY Label Comments: am (DME) Accu-Chek Guide test strips Strip MISCELLANEOUS Label Comments: USE TO TEST TWICE DAILY tramadol 50 mg tablet 50 mg PO TID PRN acetaminophen 500 mg tablet 500 mg PO BID levothyroxine 100 mcg tablet 100 mcg PO DAILY (DME) lancets [Accu-Chek Fastclix Lancet Drum] Misc MISCELLANEOUS Label Comments: USE DIRECTED amlodipine 10 mg tablet 10 mg PO DAILY divalproex 500 mg tablet extended release 24 hr 500 mg PO BID calcium carbonate [Calcium Antacid] 200 mg calcium (500 mg) tablet,chewable 500 mg PO BID PRN fluoxetine 10 mg capsule 30 mg PO DAILY olanzapine 15 mg tablet 15 mg PO DAILY PRN gabapentin 100 mg capsule 300 mg PO DAILY epinephrine 0.3 mg/0.3 mL auto-injector 0.3 mg IM DAILY PRN fluticasone propion-salmeterol [Advair Diskus] 100-50 mcg/dose blister with device 1 inh INHALATION DAILY albuterol sulfate 90 mcg/actuation HFA aerosol inhaler 1 - 2 puff INHALATION TID PRN ondansetron 4 mg tablet,disintegrating 8 mg translingual Q8H PRN loratadine [Allergy Relief (loratadine)] 10 mg tablet 10 mg PO DAILY cholecalciferol (vitamin D3) 25 mcg (1,000 unit) capsule 25 mcg PO DAILY cyclobenzaprine 5 mg tablet 5 mg PO Q8H PRN Victoza 3-Guero 0.6 mg/0.1 mL (18 mg/3 mL) pen injector SUBCUT Trulicity 1.5 mg/0.5 mL pen injector 1.5 mg SUBCUT QWEEK sennosides-docusate sodium [Senna Plus] 8.6-50 mg tablet 2 tab-cap PO BID pantoprazole 40 mg tablet,delayed release (DR/EC) 40 mg PO DAILY sucralfate 1 gram tablet 1 g PO BID Incruse Ellipta 62.5 mcg/actuation blister with device 1 inh INHALATION DAILY icosapent ethyl [Vascepa] 1 gram capsule 2 g PO BID urea 20 % cream 1 applic TOPICAL DAILY PRN montelukast 10 mg tablet 10 mg PO HS melatonin 5 mg capsule 5 mg PO HS PRN calcitriol 0.25 mcg capsule 0.25 mcg PO DAILY glycerin (adult) [Fleet Glycerin (Adult)] Suppository 1 supp [place] DAILY PRN propranolol 60 mg tablet 60 mg PO TID Label Comments: hold if pulse is below 65 trazodone 150 mg tablet 150 mg PO HS Follow Up/Referrals: Provider,Not a Local [Primary Care Provider] - Stand Alone Forms: [place] Info Instructions
--- NOTE | 2022-09-14 | ED.NURSE ---
report given to Ald[place], caregiver, at [facility]. pt. will transferred via [facility].
[2022-09-14 00:14] LABS: PCR FLU A Negative PCR FLU A (Negative); PCR FLU B Negative PCR FLU B (Negative); PCR RSV Negative PCR RSV (Negative)
[2022-09-14 00:16] LABS: SARS PCR* Negative SARS-CoV-2 (Negative)
[2022-09-14 00:26] VITALS: BP 132/79; PULSE 79; RESP 18; TEMP 36.6; O2SAT 99
--- NOTE | 2022-09-14 00:40 | ED.NURSE ---
report given to [facility]. pt. will be transferred to via [facility] to [facility].
[2022-09-14 00:42] VITALS: BP 132/79; PULSE 79; RESP 18; TEMP 36.6
== END 2022-09-14 00:43 | disposition home or self-care (01) ==
PROVIDERS: Emergency Provider Family Medicine
DX: R10.9 Unspecified abdominal pain (principal); K59.00 Constipation, unspecified
CPT/HCPCS: 36415; 74019; 80048; 80076; 81001; 82150; 83690; 84703; 85025; 87086; 87502; 87634; 87635; 99284; A9270; J7120

== ENCOUNTER 2022-09-14 00:37 | Outpatient (CLI) | payer MEDICARE, OTHER, SELFPAY | END 2022-09-14 00:38 | disposition home or self-care (01) | LOC: AMB 09-20 08:15 | PROVIDERS: Visit Provider Family Medicine | DX: R10.9 Unspecified abdominal pain (principal) | CPT/HCPCS: A0425; A0428 ==

== ENCOUNTER 2022-09-17 23:43 | Outpatient (CLI) | payer MEDICARE, OTHER, SELFPAY | END 2022-09-17 23:44 | disposition home or self-care (01) | LOC: AMB 09-20 09:26 | PROVIDERS: Visit Provider Emergency Medicine Emergency Medical Services | DX: R06.09 Other forms of dyspnea (principal) | CPT/HCPCS: A0425; A0427 ==

== ENCOUNTER 2022-09-18 00:09 | Emergency (ER) | payer MEDICARE, OTHER, SELFPAY ==
[2022-09-18 00:16] VITALS: BP 140/96; PULSE 90; RESP 22; TEMP 36.3; O2SAT 91
--- NOTE | 2022-09-18 00:39 | CRLHL7_ITS ---
For Patients: As a result of the Cures Act, medical imaging exams and procedure reports are released immediately into your electronic medical record. You may view this report before your referring provider. If you have questions, please contact your health care provider. INDICATION: Cough, hypoxia. TECHNIQUE: Chest 2 view(s) COMPARISON: Chest radiograph dated 08/16/2022. FINDINGS: Cardiomediastinal silhouette and pulmonary vasculature are normal. No focal consolidation. No pleural effusion, no definite pneumothorax. No acute chest wall abnormality. IMPRESSION: No focal consolidation. Dictated by Elliott Canales MD @ 09/18/2022 1:40:31 AM (Electronically Signed)
--- NOTE | 2022-09-18 00:45 | ED_ITS ---
HPI - SOB/Dyspnea General Chief Complaint: Cough Stated Complaint: Fever, cough Time Seen by Provider: 09/18/22 00:15 Source: patient, EMS and old records reviewed Mode of arrival: EMS Limitations: no limitations History of Present Illness HPI Narrative: Patient complains of cough and headache for the past 2 days but also nausea and right upper quadrant abdominal pain for 2 days. Reviewed the records and see that she does make fairly frequent visits in her last visit was 5 days ago. These notes are reviewed in their entirety. She pretty thorough workup for abdominal pain and nausea that was thankfully reassuring. I do note that she takes dulaglutide for her diabetes, this would certainly be a contributing factor to ongoing nausea and poor appetite. EMS was called because she was noted to have cough and shortness of breath. She does have a known history of asthma. They state that her O2 sats were around 90% upon arrival this did improve to about 94% with use of a DuoNeb. They do not comment that she was wheezing. She states that she has not felt like she has been wheezing and has been using her maintenance inhalers without difficulty. She denies any history of DVT or PE. She denies any chest pain or palpitations. She states that her cough is nonproductive. She does have a mild headache and some nasal congestion but denies any sore throat or other respiratory symptoms. She has not been using her rescue inhaler as she has not felt like she has needed it. She has felt nauseated but has not had any vomiting. She reports that her appetite has been stable. She has been having what she describes as diarrhea for the past few days but on specific review it sounds more like loose stools. She is prescribed senna as well. She was noted to have some constipation in the ED 5 days ago. Past medical history is most notable for developmental delay, depression and mental health issues asthma diabetes and hyperlipidemia. She is on a beta- steve which would potentially mask any tachycardia from a pulmonary embolism. Medications are reviewed from her intermediate, essentially unchanged from 5 days ago. Socially, she resides in a intermediate, is vaccinated against COVID. Denies any intoxication, alcohol use. No recent pertinent travel ROS is notable for the generalized, respiratory, HEENT and GI symptoms as above. I do interpret the GI symptoms as mostly chronic. Otherwise review of systems is negative times 12 systems. Related Data Home Medications Medication Instructions Recorded Confirmed acetaminophen 325 mg tablet 650 mg PO BID PRN 05/27/22 09/18/22 acetaminophen 500 mg tablet 500 mg PO BID 05/27/22 09/18/22 albuterol sulfate 90 mcg/actuation 1 - 2 puff inhalation TID PRN 05/27/2209/18 aerosol inhaler amlodipine 10 mg tablet 10 mg PO DAILY 05/27/22 09/18/22 atorvastatin 40 mg tablet 40 mg PO HS 05/27/22 09/18/22 blood sugar diagnostic (Accu-Chek 05/27/22 08/16/22 Guide test strips) calcium carbonate 200 mg calcium 500 mg PO BID PRN 05/27/22 09/18/22 (500 mg) chewable tablet (Calcium Antacid) cholecalciferol (vitamin D3) 25 25 mcg PO DAILY 05/27/22 09/18/22 mcg (1,000 unit) capsule cyclobenzaprine 5 mg tablet 5 mg PO Q8H PRN 05/27/22 09/18/22 divalproex 500 mg tablet,extended 500 mg PO BID 05/27/22 09/18/22 release 24 hr dulaglutide 1.5 mg/0.5 mL 1.5 mg subcut QWEEK 05/27/22 09/18/22 subcutaneous pen injector (tuQuejaSumaulicity) epinephrine 0.3 mg/0.3 mL 0.3 mg IM DAILY PRN 05/27/22 09/18/22 injection, auto-injector fluoxetine 10 mg capsule 30 mg PO DAILY 05/27/22 09/18/22 fluticasone 100 mcg-salmeterol 50 1 inh inhalation DAILY 05/27/22 09/18/22 mcg/dose blistr powdr for inhalation (Advair Diskus) gabapentin 100 mg capsule 300 mg PO DAILY 05/27/22 09/18/22 lancets (Accu-Chek Fastclix Lancet 05/27/22 08/16/22 Drum) levothyroxine 100 mcg tablet 100 mcg PO DAILY 05/27/22 09/18/22 liraglutide 0.6 mg/0.1 mL (18 mg/3 mg subcut 05/27/22 mL) subcutaneous pen injector ([employer] 3-Guero) loratadine 10 mg tablet (Allergy 10 mg PO DAILY 05/27/22 09/18/22 Relief (loratadine)) olanzapine 15 mg tablet 15 mg PO DAILY PRN 05/27/22 09/18/22 olanzapine 5 mg tablet 5 mg PO DAILY 05/27/22 09/18/22 tramadol 50 mg tablet 50 mg PO TID PRN 05/27/22 09/18/22 melatonin 5 mg capsule 5 mg PO HS PRN 06/14/22 09/18/22 montelukast 10 mg tablet 10 mg PO HS 06/14/22 09/18/22 pantoprazole 40 mg tablet,delayed 40 mg PO DAILY 06/14/22 09/18/22 release sennosides 8.6 mg-docusate sodium 2 tab-cap PO BID 06/14/22 09/18/22 50 mg tablet (Senna Plus) sucralfate 1 gram tablet 1 g PO BID 06/14/22 09/18/22 urea 20 % topical cream 1 applic topical DAILY PRN 06/14/22 09/18/22 calcitriol 0.25 mcg capsule 0.25 mcg PO DAILY 08/16/22 09/18/22 glycerin (adult) (Fleet Glycerin 1 supp MN DAILY PRN 08/16/22 09/18/22 (Adult) rectal suppository) propranolol 60 mg tablet 60 mg PO TID 08/16/22 09/18/22 trazodone 150 mg tablet 150 mg PO HS 08/16/22 09/18/22 Allergies Allergy/AdvReac Type Severity Reaction Status Date / Time ziprasidone [From Geodon] Allergy Severe Anaphylaxis Verified 09/13/22 23:08 amoxicillin Allergy Intermediate Hives Verified 09/13/22 23:08 Penicillins Allergy Intermediate Hives Verified 09/13/22 23:08 amantadine [From Symmetrel] AdvReac Intermediate sedation Verified 09/13/22 23:08 Guymon Allergy Severe renal Uncoded 08/17/22 00:01 failure Pineapple Allergy Intermediate Hives Uncoded 08/17/22 00:01 NSAID AdvReac Intermediate kidney Uncoded 08/16/22 23:59 disease PFSH [facility] Medical History (Updated 09/18/22 @ 03:50 by Jinny Back MD) ADHD Allergic rhinitis due to pollen Anxiety Asthma Autism Bipolar disorder Borderline intellectual functioning Chronic kidney disease, stage IV (severe) Fistula GERD (gastroesophageal reflux disease) High cholesterol High triglycerides History of reactive attachment disorder Hypercoagulopathy Hyperparathyroidism due to renal insufficiency IgA deficiency Intermittent explosive disorder Kidney disease Mild cognitive impairment Mild intellectual disability Mood disorder Morbid obesity with BMI of 45.0-49.9, adult Oppositional defiant disorder DEBRA (obstructive sleep apnea) Pervasive developmental disorder PTSD (post-traumatic stress disorder) Pulmonary emboli Renal failure Suicidal ideation Suicide attempt Type 2 diabetes mellitus Surgical History (Updated 09/18/22 @ 00:31 by Lidya Delcid RN) History of appendectomy History of tonsillectomy and adenoidectomy No significant past surgical history Social History Smoking Status: Never smoker Do you use any of these nicotine containing products: None Second hand tobacco smoke exposure: No How often do you have a drink containing alcohol: never AUDIT-C Alcohol total score: 0 Non-prescribed substance use: denies use service: No Exam Const: Vital Signs, click to edit/add: Vital Signs - 24 hr 09/18/22 00:16 Temperature 97.4 F L Pulse Rate [Right Pulse Oximeter] 90 Respiratory Rate 22 Blood Pressure [Le ft Upper Arm] 140/96 H Pulse Oximetry 91 Oxygen Delivery Me thod Room Air Documenting provider has reviewed patient's vital signs: yes Common normals: no apparent distress General appearance: cooperative Other: Moderate insight. HENMT: Common normals: normocephalic and TM's normal bilaterally Head and scalp: normocephalic Tympanic membrane: TM's normal bilaterally Mouth: oral and palatal mucosa normal Throat: posterior oropharynx normal Eye: Common normals: conjunctivae normal and no scleral icterus Conjunctiva: conjunctiva(e) normal Neck & C-Spine: Common normals: full ROM and no lymphadenopathy Resp: Common normals: normal respiratory effort, no retractions, no use of accessory muscles and clear to auscultation bilaterally Auscultation: clear to auscultation bilaterally Cardio: Common normals: regular rate, regular rhythm, no murmurs and peripheral pulses 2+ throughout Rate: regular rate Rhythm: regular rhythm Peripheral pulses: pulses 2+ throughout GI: Other: Obese but soft. Mild tenderness to the right upper quadrant, no rebound tenderness or guarding. Exam was not reproducible with multiple attempts to palpation. There is certainly no mass. Back & Pelvis: Other: Legs are without significant edema, no redness, no tenderness. Neuro: Motor exam: strength 5/5 throughout, no tremor noted and no movement abnormalities noted Psych: Other: Insight seems moderate. Thought process is logical, she is calm and cooperative for me today. Skin: Common normals: no rashes or lesions noted General skin exam: no rashes or lesions noted Course Vital Signs Vital signs: Initial Vital Signs Temperature 97.4 F L 09/18/22 00:16 Temperature Source Temporal Artery Scan 09/18/22 00:16 Pulse Rate 90 09/18/22 00:16 Respiratory Rate 22 09/18/22 00:16 Blood Pressure 140/96 H 09/18/22 00:16 Blood Pressure Mean 110 09/18/22 00:16 Blood Pressure Position Sitting 09/18/22 00:16 Pulse Oximetry 91 09/18/22 00:16 Oxygen Delivery Method 09/18/22 00:16 Vital Signs Temperature 97.4 F L 09/18/22 00:16 Pulse Rate 90 09/18/22 00:16 Respiratory Rate 22 09/18/22 00:16 Blood Pressure 140/96 H 09/18/22 00:16 Pulse Oximetry 91 09/18/22 00:16 Oxygen Delivery Method 09/18/22 00:16 Temperature 97.4 F L 09/18/22 00:16 Pulse Rate 90 09/18/22 00:16 Respiratory Rate 22 09/18/22 00:16 Blood Pressure 140/96 H 09/18/22 00:16 Pulse Oximetry 91 09/18/22 00:16 Oxygen Delivery Method 09/18/22 00:16 MDM - SOB/Dyspnea MDM Narrative Medical decision making narrative: Labs and notes reviewed from 5 days ago. The hypoxia does seem different than usual for her. She was 99% 5 days ago but does typically run more around 94- 95%, recorded at 90% once in May as well. I do think that there may be a positional element of potentially some sleep apnea as I do remove her oxygen quickly when I entered the room and as she talks with me her sats are more consistently 96% but then when she lays back in a recumbent position and is not taking is deeper breaths, her sats dropped to around 90%. Differential diagnosis includes asthma exacerbation, pneumonia, COVID, pulmonary embolism an upper respiratory infection. A suspected UTI issues are chronic would like to repeat lipase, liver enzymes, CRP as well as get a chest x-ray COVID and influenza swabs. I do not appreciate any wheezing but if her O2 sats continued to stay low or if I see any evidence of air trapping on x-ray, would recommend steroids. These would have to be done carefully is there is certainly going to exacerbate her mental health issues. Awaiting labs. She was agreeable to a trial of fluids and Zofran for her nausea. I suspect with the nausea is most likely related to her long-term medications. I am able to pull up medical records from prior to the EMR switch and see that she has a known diagnosis obesity hypoventilation syndrome and is supposed to be using a BiPAP while sleeping and resting at all times. Her positional mild hypoxia has not surprising with this finding. Elevated D-dimer noted. Unfortunately, patient's baseline creatinine prohibits CT with contrast of the chest to look for pulmonary embolism. I speak with Jones again and she confirms for me that she has felt significantly more short of breath for the last couple of days. As stated, she is on a beta-steve for long-term management and this could mask some tachycardia. I would recommend bilateral venous Doppler ultrasounds of her legs to look for clot. This may help us determine if there is the potential for clot burden in her lungs. In the meantime, I am not appreciating any abnormalities on chest x-ray that would make me suspicious of pneumonia. She seems to have a mild upper respiratory infection, but no wheezing. I do not think she would benefit from steroids at this time. She has hypoxia when sleeping which is not unexpected nor different than her baseline, see Dr. Raphael note from December. Patient will remain in the emergency department until the morning hours when ultrasound can be obtained of her legs. Update: Ultrasound of both legs is negative for DVT, reassuring. I do not think a V/Q scan will be of additional benefit. Counseled patient that we are seeing signs of an upper respiratory infection but no pneumonia, no wheezing, no abnormalities in her labs that are not chronic for her. I recommend conservative management and continued use of albuterol p.r.n. and discharged at this time. She was agreeable. I stressed the importance of her using her BiPAP at home when sleeping it is that she is very compliant with this device. Differential Diagnosis Differential diagnosis: Likely community acquired pneumonia, asthma with exacerbation and pulmonary embolism Medical Records Attestation: I reviewed the patient's medical records. Lab Data Attestation: I reviewed the patient's lab results. Labs: Lab Results 09/18/22 09/18/22 09/18/22 Range/Units 01:05 01:05 01:05 WBC 6.56 (4.50-11.00) K/uL RBC 3.40 L (4.00-5.20) m/uL Hgb 10.1 L (12.0-16.0) gm/dL Hct 32.3 L (33.0-51.0) % MCV 95 (80-100) fL MCH 30 (26-34) pg MCHC 31 L (32-36) gm/dL RDW Coeff of Moshe 14.3 (11.5-15.5) % Plt Count 175 (140-440) K/uL Neut % (Auto) 48.7 (42.0-72.0) % Lymph % (Auto) 36.3 (20-44) % Bryan % (Auto) 10.7 (0.0-11.0) % Eos % (Auto) 3.4 (0.0-7.0) % Baso % (Auto) 0.3 (0.0-3.0) % Neut # (Auto) 3.20 (1.7-7.0) K/uL Lymph # (Auto) 2.38 (0.90-2.90) K/uL Bryan # (Auto) 0.70 (0.00-0.90) K/UL Eos # (Auto) 0.22 (0.00-0.50) K/uL Baso # (Auto) 0.02 (0.00-0.30) K/uL Abs Immat Gran (auto) 0.04 (0.00-0.30) K/uL D-Dimer Quant (PE/DVT) (0.00-0.50) ug/ml Sodium 141 (135-149) mmol/L Potassium 4.3 (3.6-5.1) mmol/L Chloride 104 (96-114) mmol/L Carbon Dioxide 24 (20-32) mmol/L BUN 37 H (5-24) mg/dL Creatinine 3.4 H (0.5-1.5) mg/dL Estimated GFR 18 ml/min Glucose 199 H (60-115) mg/dL Calcium 9.5 (8.4-10.6) mg/dL Total Bilirubin 0.3 (0.1-1.5) mg/dL AST 22 (12-35) U/L ALT 21 (4-35) U/L Alkaline Phosphatase 64 (40-150) U/L C-Reactive Protein 1.9 H (0.5-1.0) mg/dL Total Protein 7.2 (6.0-8.3) g/dL Albumin 3.9 (3.3-5.0) g/dL Lipase 170 (23-300) U/L SARS-CoV-2 (PCR) Negative SARS-CoV-2 (Negative) Influenza Type A (PCR) Negative PCR FLU A (Negative) Influenza Type B (PCR) Negative PCR FLU B (Negative) 09/18/22 Range/Units 01:05 WBC (4.50-11.00) K/uL RBC (4.00-5.20) m/uL Hgb (12.0-16.0) gm/dL Hct (33.0-51.0) % MCV (80-100) fL MCH (26-34) pg MCHC (32-36) gm/dL RDW Coeff of Moshe (11.5-15.5) % Plt Count (140-440) K/uL Neut % (Auto) (42.0-72.0) % Lymph % (Auto) (20-44) % Bryan % (Auto) (0.0-11.0) % Eos % (Auto) (0.0-7.0) % Baso % (Auto) (0.0-3.0) % Neut # (Auto) (1.7-7.0) K/uL Lymph # (Auto) (0.90-2.90) K/uL Bryan # (Auto) (0.00-0.90) K/UL Eos # (Auto) (0.00-0.50) K/uL Baso # (Auto) (0.00-0.30) K/uL Abs Immat Gran (auto) (0.00-0.30) K/uL D-Dimer Quant (PE/DVT) 2.34 H (0.00-0.50) ug/ml Sodium (135-149) mmol/L Potassium (3.6-5.1) mmol/L Chloride (96-114) mmol/L Carbon Dioxide (20-32) mmol/L BUN (5-24) mg/dL Creatinine (0.5-1.5) mg/dL Estimated GFR ml/min Glucose (60-115) mg/dL Calcium (8.4-10.6) mg/dL Total Bilirubin (0.1-1.5) mg/dL AST (12-35) U/L ALT (4-35) U/L Alkaline Phosphatase (40-150) U/L C-Reactive Protein (0.5-1.0) mg/dL Total Protein (6.0-8.3) g/dL Albumin (3.3-5.0) g/dL Lipase (23-300) U/L SARS-CoV-2 (PCR) (Negative) Influenza Type A (PCR) (Negative) Influenza Type B (PCR) (Negative) Discharge Plan Discharge Clinical Impression: Morbid obesity with alveolar hypoventilation, Upper respiratory infection, viral Patient Disposition: Xfer Other Condition: Stable Instructions: Upper Respiratory Infection (ED) Additional Instructions: Your chest x-ray does not show pneumonia. Your blood work does not show any significant infection. We did an ultrasound of your legs to rule out blood clots, this was also normal which is great news. Your swabs for COVID and influenza are also negative. You do not have any wheezing on exam today. You will always have low oxygen saturations if you are not wearing her BiPAP at home, we have reviewed this several times in the past. At this time, I recommend that you continue to use her albuterol inhaler as needed for shortness of breath and ear symptoms should improve in a few days. Any severe worsening, come back to the emergency department for further workup. Activity Level: No Restrictions Discharge Diet: Diabetic Prescriptions: No Action atorvastatin 40 mg tablet 40 mg PO HS acetaminophen 325 mg tablet 650 mg PO BID PRN olanzapine 5 mg tablet 5 mg PO DAILY Label Comments: am (DME) Accu-Chek Guide test strips Strip MISCELLANEOUS Label Comments: USE TO TEST TWICE DAILY tramadol 50 mg tablet 50 mg PO TID PRN acetaminophen 500 mg tablet 500 mg PO BID levothyroxine 100 mcg tablet 100 mcg PO DAILY (DME) lancets [Accu-Chek Fastclix Lancet Drum] Misc MISCELLANEOUS Label Comments: USE DIRECTED amlodipine 10 mg tablet 10 mg PO DAILY divalproex 500 mg tablet extended release 24 hr 500 mg PO BID calcium carbonate [Calcium Antacid] 200 mg calcium (500 mg) tablet,chewable 500 mg PO BID PRN fluoxetine 10 mg capsule 30 mg PO DAILY olanzapine 15 mg tablet 15 mg PO DAILY PRN gabapentin 100 mg capsule 300 mg PO DAILY epinephrine 0.3 mg/0.3 mL auto-injector 0.3 mg IM DAILY PRN fluticasone propion-salmeterol [Advair Diskus] 100-50 mcg/dose blister with device 1 inh INHALATION DAILY albuterol sulfate 90 mcg/actuation HFA aerosol inhaler 1 - 2 puff INHALATION TID PRN loratadine [Allergy Relief (loratadine)] 10 mg tablet 10 mg PO DAILY cholecalciferol (vitamin D3) 25 mcg (1,000 unit) capsule 25 mcg PO DAILY cyclobenzaprine 5 mg tablet 5 mg PO Q8H PRN Victoza 3-Guero 0.6 mg/0.1 mL (18 mg/3 mL) pen injector SUBCUT Trulicity 1.5 mg/0.5 mL pen injector 1.5 mg SUBCUT QWEEK sennosides-docusate sodium [Senna Plus] 8.6-50 mg tablet 2 tab-cap PO BID pantoprazole 40 mg tablet,delayed release (DR/EC) 40 mg PO DAILY sucralfate 1 gram tablet 1 g PO BID urea 20 % cream 1 applic TOPICAL DAILY PRN montelukast 10 mg tablet 10 mg PO HS melatonin 5 mg capsule 5 mg PO HS PRN calcitriol 0.25 mcg capsule 0.25 mcg PO DAILY glycerin (adult) [Fleet Glycerin (Adult)] Suppository 1 supp MN DAILY PRN propranolol 60 mg tablet 60 mg PO TID Label Comments: hold if pulse is below 65 trazodone 150 mg tablet 150 mg PO HS Stand Alone Forms: My[facility] Info Instructions
[2022-09-18] MEDS: ONDANSETRON 2 MG/ML inj 4 MG IVP (01:06)
[2022-09-18 01:13] LABS: Basophils Absolute Auto 0.02 K/uL (0.00-0.30); Basophils Percent Auto 0.3 % (0.0-3.0); Eosinophils Absolute Auto 0.22 K/uL (0.00-0.50); Eosinophils Percent Auto 3.4 % (0.0-7.0); Hematocrit 32.3 % (33.0-51.0); Hemoglobin* 10.1 gm/dL (12.0-16.0); Immature Granulocytes Abs Auto 0.04 K/uL (0.00-0.30); Lymphocytes Absolute Auto 2.38 K/uL (0.90-2.90); Lymphocytes Percent Auto 36.3 % (20-44); Mean Corpuscular HGB Conc 31 gm/dL (32-36); Mean Corpuscular Hemoglobin 30 pg (26-34); Mean Corpuscular Volume 95 fL (80-100); Monocytes Percent Auto 10.7 % (0.0-11.0); Neutrophils Percent Auto 48.7 % (42.0-72.0); Platelet Count* 175 K/uL (140-440); RDW Coefficient of Variation % 14.3 % (11.5-15.5); White Blood Count* 6.56 K/uL (4.50-11.00)
[2022-09-18 01:18] LABS: Slide Review Reflex No
[2022-09-18] MEDS: 0.9 % SODIUM CHLORIDE 500 ML 500 ML IV (01:30)
[2022-09-18 01:33] LABS: D Dimer Quantitative* 2.34 ug/ml (0.00-0.50)
[2022-09-18 01:38] LABS: Albumin* 3.9 g/dL (3.3-5.0); Chloride* 104 mmol/L (96-114); Potassium* 4.3 mmol/L (3.6-5.1); Sodium* 141 mmol/L (135-149)
[2022-09-18 01:40] LABS: Bilirubin Total* 0.3 mg/dL (0.1-1.5); Creatinine* 3.4 mg/dL (0.5-1.5); Estimated Glomerular Filt Rate 18 ml/min
[2022-09-18 01:41] LABS: Alanine Aminotransferase* 21 U/L (4-35); Alkaline Phosphatase* 64 U/L (40-150); Aspartate Amino Transferase* 22 U/L (12-35); Blood Urea Nitrogen* 37 mg/dL (5-24); Carbon Dioxide* 24 mmol/L (20-32); Glucose* 199 mg/dL (60-115); Lipase* 170 U/L (23-300); Total Protein* 7.2 g/dL (6.0-8.3)
[2022-09-18 01:42] LABS: Calcium* 9.5 mg/dL (8.4-10.6)
[2022-09-18 01:44] LABS: C Reactive Protein* 1.9 mg/dL (0.5-1.0)
[2022-09-18 01:52] LABS: PCR FLU A Negative PCR FLU A (Negative); PCR FLU B Negative PCR FLU B (Negative)
[2022-09-18 01:53] LABS: SARS PCR* Negative SARS-CoV-2 (Negative)
--- NOTE | 2022-09-18 02:31 | ED.NURSE ---
Patient c/o pain at the infusion site. IV flushes well with good blood return. Patient is taking in oral fluids. Discussed patient's wish to discontinue IV with MD, who agrees to discontinue IVF infusion with 262ml infused. SL removed intact.
--- NOTE | 2022-09-18 02:47 | CRLHL7_ITS ---
For Patients: As a result of the Century Cures Act, medical imaging exams and procedure reports are released immediately into your electronic medical record. You may view this report before your referring provider. If you have questions, please contact your health care provider. INDICATION: Elevated D-DIMER, dyspnea, history deep venous thrombosis TECHNIQUE: Ultrasound venous duplex bilateral lower extremities. Real-time haley-scale (B mode 2D), color Doppler, and spectral Doppler imaging were performed with compression and augmentation. COMPARISON: None FINDINGS: Deep veins: The bilateral common femoral, femoral, popliteal, and visualized calf veins are fully compressible, demonstrate normal color flow, and normal response to mechanical augmentation. The Duplex Doppler waveforms are normal in appearance. Superficial veins: The visualized greater saphenous and superficial veins of the leg and calf are unremarkable. Soft tissue: No masses or cysts are identified. No adenopathy is seen. IMPRESSION: 1. No sonographic evidence of acute deep venous thrombosis seen in either lower extremities. Dictated by: Silver Mark MD @ 09/18/2022 03:55:14 (Electronically Signed)
--- NOTE | 2022-09-18 02:48 | ED.NURSE ---
Patient sleeping on cot in room. Patient to wait in the ER until u/s available in the morning.
--- NOTE | 2022-09-18 04:05 | ED.NURSE ---
[facility] # [phone]. Care staff (Gilbert) are unable to cherry picker operator the patient until 0830 today due to a requirement of 3 staff members to transport her. Patient sleeping on cot in room.
[2022-09-18 06:28] VITALS: PULSE 80; RESP 116; O2SAT 95
[2022-09-18 08:23] VITALS: BP 127/78; PULSE 88; RESP 20; O2SAT 87
== END 2022-09-18 09:00 | disposition other institution (70) ==
PROVIDERS: Emergency Provider Family Medicine
DX: J06.9 Acute upper respiratory infection, unspecified (principal); E66.2 Morbid (severe) obesity with alveolar hypoventilation; D68.9 Coagulation defect, unspecified
CPT/HCPCS: 36415; 71046; 80053; 83690; 85025; 85379; 86140; 87631; 93970; 96361; 96374; 99283; 99284; J2405; J7120

== ENCOUNTER 2022-09-19 23:50 | Outpatient (CLI) | payer MEDICARE, OTHER, SELFPAY | END 2022-09-19 23:51 | disposition home or self-care (01) | LOC: AMB 09-20 07:15 | PROVIDERS: Visit Provider Family Medicine | DX: R07.89 Other chest pain (principal) | CPT/HCPCS: A0425; A0427 ==

== ENCOUNTER 2022-09-20 00:18 | Emergency (ER) | payer MEDICARE, OTHER, SELFPAY ==
[2022-09-20 00:21] VITALS: BP 149/93; PULSE 73; RESP 22; TEMP 35.6; O2SAT 97; BMI 50.3
[2022-09-20 01:00] VITALS: BP 127/79; PULSE 75; RESP 18; O2SAT 88
--- NOTE | 2022-09-20 01:18 | ED_ITS ---
HPI - General Adult General Date Seen: 09/20/22 Chief complaint: Chest Pain Stated complaint: chest pain Time Seen by Provider: 09/20/22 00:19 Source: patient Mode of arrival: EMS Limitations: other (Developmental disorder) History of Present Illness HPI narrative: Patient is a 27-year-old [place] [facility] patient who is becoming increasingly familiar to us. She was here all night last evening and discharged this morning after bilateral leg ultrasounds. Her workup was completely normal other than an elevated D-dimer. A CT could not be done because for elevated creatinine. Apparently she is awaiting a kidney transplant. She has previously gotten all for [facility] but moved to [place] a few months ago because of a conflict at her [place] [facility]. She has history of behavior problems but tonight was sent in by EMS with complaints of diarrhea for the past two days, shortness of breath which was fully evaluated last night, and nonexertional chest pain. She uses BiPAP and claims to be compliant with it. She takes tramadol for chronic pain tells me that she has not had any today although her records would indicate that she had one about 4 hours prior to her arrival. She was able to stay awake during my interview but then fell asleep prior to her blood draw despite complaining of chest pain. She was off the tramadol but when the medication was brought to her she was sound asleep. Her oxygen saturation has been 96% on room air. She denies any black or bloody stools and believes that she has gone 4-6 times today. She does not complain of abdominal pain and was seen here five days ago in fully evaluated for abdominal pain. At that time the feeling was that she was constipated. She is pleasant and cooperative but does not appear short of breath or in any pain. Related Data Home Medications Medication Instructions Recorded Confirmed acetaminophen 325 mg tablet 650 mg PO BID PRN 05/27/22 09/20/22 acetaminophen 500 mg tablet 500 mg PO BID PRN 05/27/22 09/20/22 albuterol sulfate 90 mcg/actuation 1 - 2 puff inhalation TID PRN 05/27/22 09/18/22 aerosol inhaler amlodipine 10 mg tablet 10 mg PO DAILY 05/27/22 09/18/22 atorvastatin 40 mg tablet 40 mg PO DAILY 05/27/22 09/20/22 blood sugar diagnostic (Accu-Chek 05/27/22 08/16/22 Guide test strips) calcium carbonate 200 mg calcium 500 mg PO BID PRN 05/27/22 09/20/22 (500 mg) chewable tablet (Calcium Antacid) cholecalciferol (vitamin D3) 25 25 mcg PO DAILY 05/27/22 09/18/22 mcg (1,000 unit) capsule cyclobenzaprine 5 mg tablet 5 mg PO Q8H PRN 05/27/22 09/20/22 divalproex 500 mg tablet,extended 1,000 mg PO BID 05/27/22 09/20/22 release 24 hr dulaglutide 1.5 mg/0.5 mL 1.5 mg subcut QWEEK 05/27/22 09/18/22 subcutaneous pen injector (Suzy) epinephrine 0.3 mg/0.3 mL 0.3 mg IM DAILY PRN 05/27/22 09/20/22 injection, auto-injector fluoxetine 10 mg capsule 30 mg PO DAILY 05/27/22 09/18/22 fluticasone 100 mcg-salmeterol 50 1 inh inhalation Q12H 05/27/22 09/20/22 mcg/dose blistr powdr for inhalation (Advair Diskus) gabapentin 100 mg capsule 300 mg PO DAILY 05/27/22 09/20/22 lancets (Accu-Chek Fastclix Lancet 05/27/22 08/16/22 Drum) levothyroxine 100 mcg tablet 100 mcg PO DAILY 05/27/22 09/18/22 liraglutide 0.6 mg/0.1 mL (18 mg/3 mg subcut 05/27/22 mL) subcutaneous pen injector (Vicmisty 3-Guero) loratadine 10 mg tablet (Allergy 10 mg PO DAILY 05/27/22 09/18/22 Relief (loratadine)) olanzapine 15 mg tablet 15 mg PO HS 05/27/22 09/20/22 olanzapine 5 mg tablet 5 mg PO Q4H PRN 05/27/22 09/20/22 tramadol 50 mg tablet 50 mg PO BID PRN 05/27/22 09/20/22 melatonin 5 mg capsule 5 mg PO HS PRN 06/14/22 09/18/22 montelukast 10 mg tablet 10 mg PO HS 06/14/22 09/20/22 pantoprazole 40 mg tablet,delayed 40 mg PO DAILY 06/14/22 09/18/22 release sennosides 8.6 mg-docusate sodium 2 tab-cap PO BID 06/14/22 09/20/22 50 mg tablet (Senna Plus) sucralfate 1 gram tablet 1 g PO BID 06/14/22 09/18/22 urea 20 % topical cream 1 applic topical DAILY PRN 06/14/22 09/18/22 calcitriol 0.25 mcg capsule 0.25 mcg PO DAILY 08/16/22 09/18/22 glycerin (adult) (Fleet Glycerin 1 supp LA DAILY PRN 08/16/22 09/18/22 (Adult) rectal suppository) propranolol 60 mg tablet 60 mg PO TID 08/16/22 09/20/22 trazodone 150 mg tablet 150 mg PO HS 08/16/22 09/20/22 Vicks Vaporub 09/20/22 albuterol sulfate 90 mcg/actuation 1 inh inhalation Q4H PRN 09/20/22 09/20/22 aerosol inhaler (Ventolin HFA) clozapine 25 mg tablet 12.5 mg 09/20/22 diphenhydramine HCl 25 mg capsule 50 mg PO Q4-6H PRN 09/20/22 09/20/22 (Benadryl) emollient (Vanicream topical) applic topical 09/20/22 guaifenesin 100 mg/5 mL oral mg PO Q4H PRN 09/20/22 liquid (Siltussin SA) hyoscyamine 0.15 mg tablet mg PO PRN 09/20/22 lactulose 10 gram/15 mL oral 10 g PO Q6H PRN 09/20/22 09/20/22 solution (Enulose) melatonin 2.5 mg chewable tablet 5 mg PO BID PRN 09/20/22 09/20/22 (VitaJoy Melatonin) nystatin 100,000 unit/gram topical topical PRN 09/20/22 cream olanzapine 10 mg tablet mg 09/20/22 ondansetron 8 mg disintegrating 8 mg translingual Q8H PRN 09/20/22 09/20/22 tablet polyethylene glycol 3350 17 g PRN 09/20/22 gram/dose oral powder (Gavilax) polyvinyl alcohol 1.4 % eye drops drp PRN 09/20/22 (Artificial Tears (polyvinyl alcohol)) sodium chloride 0.65 % nasal spray 2 spray intranasal Q2H PRN 09/20/22 09/20/22 aerosol (Deep Sea Nasal) sodium phosphates 19 gram-7 ml LA PRN 09/20/22 gram/118 mL enema (Fleet Enema) tretinoin 0.025 % topical cream 1 applic topical HS 09/20/22 09/20/22 (Retin-A) Allergies Allergy/AdvReac Type Severity Reaction Status Date / Time ziprasidone [From Geodon] Allergy Severe Anaphylaxis Verified 09/20/22 00:34 amoxicillin Allergy Intermediate Hives Verified 09/20/22 00:34 Penicillins Allergy Intermediate Hives Verified 09/20/22 00:34 amantadine [From Symmetrel] AdvReac Intermediate sedation Verified 09/20/22 00:34 [place] Allergy Severe renal Uncoded 08/17/22 00:01 failure [place]apple Allergy Intermediate Hives Uncoded 08/17/22 00:01 NSAID AdvReac Intermediate kidney Uncoded 08/16/22 23:59 disease Review of Systems Status of ROS: Reports: 10 or more systems reviewed and unremarkable except as noted in History and below [facility] Medical History (Updated 09/20/22 @ 01:28 by Arnol Wisdom MD) ADHD Allergic rhinitis due to pollen Anxiety Asthma Autism Bipolar disorder Borderline intellectual functioning Chronic kidney disease, stage IV (severe) GERD (gastroesophageal reflux disease) History of reactive attachment disorder Hypercoagulopathy Hyperlipidemia Hyperparathyroidism due to renal insufficiency IgA deficiency Intermittent explosive disorder Kidney disease Mild cognitive impairment Mild intellectual disability Mood disorder Morbid obesity with BMI of 45.0-49.9, adult Oppositional defiant disorder DEBRA (obstructive sleep apnea) Pervasive developmental disorder PTSD (post-traumatic stress disorder) Pulmonary emboli Renal failure Suicidal ideation Suicide attempt Type 2 diabetes mellitus Surgical History (Updated 09/20/22 @ 00:23 by Arnol Wisdom MD) History of appendectomy History of tonsillectomy and adenoidectomy Social History Smoking Status: Never smoker Do you use any of these nicotine containing products: None Second hand tobacco smoke exposure: No How often do you have a drink containing alcohol: never AUDIT-C Alcohol total score: 0 Non-prescribed substance use: denies use Exam Narrative: Exam Narrative: Vitals noted. Oxygen saturation is normal. HEENT: Conjunctiva clear. Tympanic membranes are pearly white bilaterally. Posterior pharynx is clear without erythema or exudate. Neck is supple without adenopathy, thyromegaly, carotid bruit. Lungs: Clear to auscultation in all jordan. No wheezes, rales, rhonchi. Heart: Regular rate and rhythm without murmur. She complains of some chest wall tenderness along the left side. No palpable abnormalities. Abdomen: Obese, Soft and nontender. No guarding, rigidity, rebound. Bowel sounds are normal. No palpable masses. Extremities: No cyanosis or edema. Good distal pulses. Negative Yary sign. Skin: No abnormalities noted of the exposed skin. Neurologic: Awake, alert, fully oriented. Neurologic exam is nonfocal. Const: Vital Signs, click to edit/add: Vital Signs - 24 hr 09/20/22 00:21 Temperature 96.1 F L Pulse Rate [Right Pulse Oximeter] 73 Respiratory Rate 22 Blood Pressure [Le ft Forearm] 149/93 H Pulse Oximetry 97 Oxygen Delivery Me thod Room Air Documenting provider has reviewed patient's vital signs: yes Course Course Hospital Course: Patient was seen and examined. EKG was done which shows normal sinus rhythm with a rate of 73. No acute ST or T-wave changes noted. Troponin is normal. I offered her tramadol she fell asleep prior to being given the medication and has slept comfortably since that time. Reevaluation(s) Reevaluation #1: Her troponin EKG are normal. She slept in the department and her oxygen saturation does drop to 87% without her BiPAP. No other concerns arose and we will seek to discharge her back to her [place] [facility]. No evidence of worrisome chest pain or shortness of breath beyond her norm. Reevaluation #2: The patient's [place] [facility] states they cannot come and pick her up because they only have two staff members and she requires three. She needs her BiPAP to prevent hypoxia while she sleeps and we will send her back to her [place] [facility] by EMS as we cannot provide housing for her overnight on BiPAP in the emergency department. This transfer is medically necessary. Vital Signs Vital signs: Initial Vital Signs Temperature 96.1 F L 09/20/22 00:21 Temperature Source Temporal Artery Scan 09/20/22 00:21 Pulse Rate 73 09/20/22 00:21 Respiratory Rate 22 09/20/22 00:21 Blood Pressure 149/93 H 09/20/22 00:21 Blood Pressure Mean 111 09/20/22 00:21 Blood Pressure Position Sitting 09/20/22 00:21 Pulse Oximetry 97 09/20/22 00:21 Oxygen Delivery Method 09/20/22 00:21 Vital Signs Temperature 96.1 F L 09/20/22 00:21 Pulse Rate 73 09/20/22 00:21 Respiratory Rate 22 09/20/22 00:21 Blood Pressure 149/93 H 09/20/22 00:21 Pulse Oximetry 97 09/20/22 00:21 Oxygen Delivery Method 09/20/22 00:21 Temperature 96.1 F L 09/20/22 00:21 Pulse Rate 73 09/20/22 00:21 Respiratory Rate 22 09/20/22 00:21 Blood Pressure 149/93 H 09/20/22 00:21 Pulse Oximetry 97 09/20/22 00:21 Oxygen Delivery Method 09/20/22 00:21 Medical Decision Making Lab Data Labs: Lab Results 09/20/22 Range/Units 01:15 POC Troponin I 0.00 L (0.01-0.04) ng/ml Discharge Plan Discharge Clinical Impression: DEBRA (obstructive sleep apnea), Chest pain Patient Disposition: Home w/ Parent or Adult Condition: Stable Additional Instructions: Continue current medications. Follow-up with your PCP to discuss medication adjustments. Victoza and Trulicity can both cause nausea and diarrhea. You must consistently use your BiPAP. Exercise and weight loss will help your shortness of breath. Prescriptions: No Action lactulose [Enulose] 10 gram/15 mL solution 10 g PO Q6H PRN Deep Sea Nasal 0.65 % aerosol,spray 2 spray INTRANASAL Q2H PRN albuterol sulfate [Ventolin HFA] 90 mcg/actuation HFA aerosol inhaler 1 inh inhalation Q4H PRN polyvinyl alcohol [Artificial Tears (polyvin alc)] 1.4 % drops PRN Fleet Enema 19-7 gram/118 mL enema LA PRN hyoscyamine 0.15 mg tablet PO PRN nystatin 100,000 unit/gram cream TOPICAL PRN olanzapine 10 mg tablet ondansetron 8 mg tablet,disintegrating 8 mg translingual Q8H PRN guaifenesin [Siltussin SA] 100 mg/5 mL liquid PO Q4H PRN diphenhydramine HCl [Benadryl] 25 mg capsule 50 mg PO Q4-6H PRN emollient [Vanicream] Cream topical Vicks Vaporub melatonin [VitaJoy Melatonin] 2.5 mg tablet,chewable 5 mg PO BID PRN polyethylene glycol 3350 [Gavilax] 17 gram/dose powder PRN tretinoin [Retin-A] 0.025 % cream 1 applic topical HS clozapine 25 mg tablet 12.5 mg Hold Instructions: Doctor's Order atorvastatin 40 mg tablet 40 mg PO DAILY acetaminophen 325 mg tablet 650 mg PO BID PRN olanzapine 5 mg tablet 5 mg PO Q4H PRN Label Comments: am (DME) Accu-Chek Guide test strips Strip MISCELLANEOUS Label Comments: USE TO TEST TWICE DAILY tramadol 50 mg tablet 50 mg PO BID PRN acetaminophen 500 mg tablet 500 mg PO BID PRN levothyroxine 100 mcg tablet 100 mcg PO DAILY (DME) lancets [Accu-Chek Fastclix Lancet Drum] Misc MISCELLANEOUS Label Comments: USE DIRECTED amlodipine 10 mg tablet 10 mg PO DAILY divalproex 500 mg tablet extended release 24 hr 1,000 mg PO BID calcium carbonate [Calcium Antacid] 200 mg calcium (500 mg) tablet,chewable 500 mg PO BID PRN fluoxetine 10 mg capsule 30 mg PO DAILY olanzapine 15 mg tablet 15 mg PO HS gabapentin 100 mg capsule 300 mg PO DAILY epinephrine 0.3 mg/0.3 mL auto-injector 0.3 mg IM DAILY PRN fluticasone propion-salmeterol [Advair Diskus] 100-50 mcg/dose blister with device 1 inh INHALATION Q12H albuterol sulfate 90 mcg/actuation HFA aerosol inhaler 1 - 2 puff INHALATION TID PRN loratadine [Allergy Relief (loratadine)] 10 mg tablet 10 mg PO DAILY cholecalciferol (vitamin D3) 25 mcg (1,000 unit) capsule 25 mcg PO DAILY cyclobenzaprine 5 mg tablet 5 mg PO Q8H PRN Victoza 3-Guero 0.6 mg/0.1 mL (18 mg/3 mL) pen injector SUBCUT Trulicity 1.5 mg/0.5 mL pen injector 1.5 mg SUBCUT QWEEK sennosides-docusate sodium [Senna Plus] 8.6-50 mg tablet 2 tab-cap PO BID pantoprazole 40 mg tablet,delayed release (DR/EC) 40 mg PO DAILY sucralfate 1 gram tablet 1 g PO BID urea 20 % cream 1 applic TOPICAL DAILY PRN montelukast 10 mg tablet 10 mg PO HS melatonin 5 mg capsule 5 mg PO HS PRN calcitriol 0.25 mcg capsule 0.25 mcg PO DAILY glycerin (adult) [Fleet Glycerin (Adult)] Suppository 1 supp LA DAILY PRN propranolol 60 mg tablet 60 mg PO TID Label Comments: hold if pulse is below 65 trazodone 150 mg tablet 150 mg PO HS Follow Up/Referrals: Provider,Not a Local [Primary Care Provider] - Stand Alone Forms: [facility] Info Instructions
[2022-09-20 01:30] VITALS: BP 139/95; PULSE 82; RESP 18; O2SAT 87
[2022-09-20 02:00] VITALS: BP 147/87; PULSE 73; RESP 18; O2SAT 85; O2SAT 98
--- NOTE | 2022-09-20 02:09 | ED.NURSE ---
Pt has been sleeping in ER since md exam and ekg done. Sats down to 85% without home bipap machine. O2/nc 2L. Call to [facility], they are unable to provide transportation due to only having two staff at night, can picker and sorter load and unload only after 0800.
--- NOTE | 2022-09-20 02:25 | ED.NURSE ---
Call to [facility] facility.
== END 2022-09-20 02:26 | disposition home or self-care (01) ==
PROVIDERS: Emergency Provider Family Medicine
DX: R07.9 Chest pain, unspecified (principal); G47.33 Obstructive sleep apnea (adult) (pediatric)
CPT/HCPCS: 93005; 99283; 99284

== ENCOUNTER 2022-09-20 02:17 | Outpatient (CLI) | payer MEDICARE, OTHER, SELFPAY | END 2022-09-20 02:18 | disposition home or self-care (01) | LOC: AMB 08:05 | PROVIDERS: Visit Provider Family Medicine | DX: Z99.81 Dependence on supplemental oxygen (principal); R07.89 Other chest pain | CPT/HCPCS: A0425; A0428 ==

== ENCOUNTER 2022-09-24 15:12 | Outpatient (CLI) | payer MEDICARE, OTHER, SELFPAY | END 2022-09-24 15:13 | disposition home or self-care (01) | LOC: AMB 10-31 09:02 | PROVIDERS: Visit Provider Family Medicine | DX: R10.9 Unspecified abdominal pain (principal); R11.0 Nausea | CPT/HCPCS: A0425; A0426; A0427 ==

== ENCOUNTER 2022-09-24 15:44 | Emergency (ER) | payer MEDICARE, OTHER, SELFPAY ==
[2022-09-24 15:55] VITALS: BP 112/64; PULSE 83; RESP 18; TEMP 36.6; O2SAT 96; BMI 49.8
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
[2022-09-24] MEDS: HYOSCYAMINE SULFATE 0.125 MG TAB 0.25 MG SUBLINGUAL (17:24)
[2022-09-24] MEDS: ONDANSETRON 2 MG/ML inj 4 MG IVP (17:24)
[2022-09-24] MEDS: 0.9 % SODIUM CHLORIDE 1000 ml 1,000 ML IV (17:25)
[2022-09-24 17:40] LABS: Basophils Absolute Auto 0.03 K/uL (0.00-0.30); Basophils Percent Auto 0.4 % (0.0-3.0); Eosinophils Absolute Auto 0.26 K/uL (0.00-0.50); Eosinophils Percent Auto 3.5 % (0.0-7.0); Hematocrit 35.1 % (33.0-51.0); Hemoglobin* 10.9 gm/dL (12.0-16.0); Immature Granulocytes Abs Auto 0.04 K/uL (0.00-0.30); Lymphocytes Absolute Auto 2.57 K/uL (0.90-2.90); Lymphocytes Percent Auto 34.7 % (20-44); Mean Corpuscular HGB Conc 31 gm/dL (32-36); Mean Corpuscular Hemoglobin 30 pg (26-34); Mean Corpuscular Volume 96 fL (80-100); Monocytes Percent Auto 10.4 % (0.0-11.0); Neutrophils Absolute Auto 3.74 K/uL (1.7-7.0); Neutrophils Percent Auto 50.5 % (42.0-72.0); Platelet Count* 198 K/uL (140-440); RDW Coefficient of Variation % 14.4 % (11.5-15.5); Red Blood Count 3.66 m/uL (4.00-5.20); White Blood Count* 7.41 K/uL (4.50-11.00)
[2022-09-24 17:50] LABS: Slide Review Reflex No
[2022-09-24 17:57] LABS: Chloride* 105 mmol/L (96-114); Sodium* 141 mmol/L (135-149)
[2022-09-24 17:58] LABS: Potassium* 4.4 mmol/L (3.6-5.1)
[2022-09-24 17:59] LABS: Creatinine* 3.3 mg/dL (0.5-1.5); Est. Creatinine Clearance* 23.45; Estimated Glomerular Filt Rate 19 ml/min
[2022-09-24 18:00] LABS: Alkaline Phosphatase* 59 U/L (40-150); Aspartate Amino Transferase* 19 U/L (12-35); Bilirubin Direct* 0.2 mg/dL (0.0-0.5); Bilirubin Total* 0.3 mg/dL (0.1-1.5); Carbon Dioxide* 26 mmol/L (20-32); Total Protein* 7.5 g/dL (6.0-8.3)
[2022-09-24 18:01] LABS: Alanine Aminotransferase* 20 U/L (4-35); Blood Urea Nitrogen* 41 mg/dL (5-24); Calcium* 9.1 mg/dL (8.4-10.6); Glucose* 146 mg/dL (60-115); Lipase* 235 U/L (23-300)
[2022-09-24 18:03] LABS: HCG Qualitative* Negative (Negative)
[2022-09-24 18:03] LABS: C Reactive Protein* 0.7 mg/dL (0.5-1.0)
[2022-09-24 18:05] LABS: Appearance Urine Clear (Clear); Bilirubin Urine Negative (Negative); Blood Urine Negative (Negative); Color Urine Yellow (Yellow); Glucose Urine Negative (Negative); Ketones Urine Negative (Negative); Leukocyte Esterase Urine Trace (Negative); Nitrite Urine Negative (Negative); Protein Urine 1+ (Negative); Urobilinogen Urine 0.2 (0.2-1.0)
[2022-09-24 18:08] LABS: RBC Urine 0-2 (0-2); Squamous Epithelial Cell Urine Few (None-Few); WBC Urine 0-2 (0-5)
--- NOTE | 2022-09-24 19:28 | ED.NURSE ---
[facility] has no mental health availablity, is not accepting any outside transfers at this time.
--- NOTE | 2022-09-24 21:47 | ED.NURSE ---
Patient headed back to [facility] via [facility] transport. Report called to staff member Vince.
--- NOTE | 2022-09-24 21:58 | ED.NURSE ---
Patient did not have BM while in ED, no c. diff sample able to be collected.
== END 2022-09-24 21:59 | disposition home or self-care (01) ==
PROVIDERS: Emergency Provider Family Medicine
DX: R10.9 Unspecified abdominal pain (principal); R19.7 Diarrhea, unspecified; R45.6 Violent behavior
CPT/HCPCS: 36415; 80048; 80076; 81001; 83690; 84703; 85025; 86140; 87493; 96374; 99284; A9270; J2405; J7030

== ENCOUNTER 2022-09-24 21:46 | Outpatient (CLI) | payer MEDICARE, OTHER, SELFPAY | END 2022-09-24 21:47 | disposition home or self-care (01) | LOC: AMB 10-31 09:21 | PROVIDERS: Visit Provider Family Medicine | DX: R10.9 Unspecified abdominal pain (principal) | CPT/HCPCS: A0425; A0426 ==

== ENCOUNTER 2022-10-08 21:28 | Outpatient (CLI) | payer MEDICARE, OTHER, SELFPAY | END 2022-10-08 21:29 | disposition home or self-care (01) | LOC: AMB 11-04 20:36 | PROVIDERS: Visit Provider Family Medicine | DX: M25.531 Pain in right wrist (principal) | CPT/HCPCS: A0425; A0427 ==

== ENCOUNTER 2022-10-08 21:59 | Emergency (ER) | payer MEDICARE, OTHER, SELFPAY ==
[2022-10-08 22:00] VITALS: BP 137/80; PULSE 85; RESP 20; TEMP 35.9; O2SAT 94
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
--- NOTE | 2022-10-08 22:12 | ED.GENADULT ---
HPI - General Adult General Time Seen by Provider: 22:13 Date Seen: 10/08/22 Chief complaint: Extremity Pain/Injury, Upper Stated complaint: Right wrist pain Time Seen by Provider: 10/08/22 22:10 Source: patient Mode of arrival: EMS Limitations: no limitations History of Present Illness HPI narrative: Patient is a 27-year-old female care home resident who has some history of violent outbursts, she punched a hard surface last night has pain in her dorsum of her right hand. No open wounds, she wanted this checked. She was brought in by ambulance. She has some mild swelling over the dorsum her hand her fingers move well, she has no forearm pain. No other injuries reported Related Data Home Medications Medication Instructions Recorded Confirmed acetaminophen 325 mg tablet 650 mg PO BID PRN 05/27/22 09/20/22 acetaminophen 500 mg tablet 500 mg PO BID PRN 05/27/22 10/08/22 albuterol sulfate 90 mcg/actuation 1 - 2 puff inhalation TID PRN 05/27/22 10/08/22 aerosol inhaler amlodipine 10 mg tablet 10 mg PO DAILY 05/27/22 10/08/22 atorvastatin 40 mg tablet 40 mg PO DAILY 05/27/22 10/08/22 blood sugar diagnostic (Accu-Chek 05/27/22 08/16/22 Guide test strips) calcium carbonate 200 mg calcium 500 mg PO BID PRN 05/27/22 10/08/22 (500 mg) chewable tablet (Calcium Antacid) cholecalciferol (vitamin D3) 25 25 mcg PO DAILY 05/27/22 10/08/22 mcg (1,000 unit) capsule cyclobenzaprine 5 mg tablet 5 mg PO Q8H PRN 05/27/22 10/08/22 divalproex 500 mg tablet,extended 1,000 mg PO BID 05/27/22 10/08/22 release 24 hr dulaglutide 1.5 mg/0.5 mL 1.5 mg subcut QWEEK 05/27/22 10/08/22 subcutaneous [facility] ([facility] epinephrine 0.3 mg/0.3 mL 0.3 mg IM DAILY PRN 05/27/22 10/08/22 injection, auto-injector fluoxetine 10 mg capsule 30 mg PO DAILY 05/27/22 10/08/22 fluticasone 100 mcg-salmeterol 50 1 inh inhalation Q12H 05/27/22 10/08/22 mcg/dose blistr powdr for inhalation (Advair Diskus) gabapentin 100 mg capsule 300 mg PO DAILY 05/27/22 10/08/22 lancets (Accu-Chek Fastclix Lancet 05/27/22 08/16/22 Drum) levothyroxine 100 mcg tablet 100 mcg PO DAILY 05/27/22 10/08/22 liraglutide 0.6 mg/0.1 mL (18 mg/3 mg subcut 05/27/22 mL) subcutaneous pen injector ([employer] [facility] 3-Guero) loratadine 10 mg tablet (Allergy 10 mg PO DAILY 05/27/22 10/08/22 Relief (loratadine)) olanzapine 15 mg tablet 15 mg PO HS 05/27/22 10/08/22 olanzapine 5 mg tablet 5 mg PO Q4H PRN 05/27/22 10/08/22 tramadol 50 mg tablet 50 mg PO BID PRN 05/27/22 10/08/22 melatonin 5 mg capsule 5 mg PO HS PRN 06/14/22 10/08/22 montelukast 10 mg tablet 10 mg PO HS 06/14/22 10/08/22 pantoprazole 40 mg tablet,delayed 40 mg PO DAILY 06/14/22 10/08/22 release sennosides 8.6 mg-docusate sodium 2 tab-cap PO BID 06/14/22 09/20/22 50 mg tablet (Senna Plus) sucralfate 1 gram tablet 1 g PO BID 06/14/22 10/08/22 urea 20 % topical cream 1 applic topical DAILY 06/14/22 10/08/22 calcitriol 0.25 mcg capsule 0.25 mcg PO DAILY 08/16/22 10/08/22 glycerin (adult) (Fleet Glycerin 1 supp UT DAILY PRN 08/16/22 10/08/22 (Adult) rectal suppository) propranolol 60 mg tablet 60 mg PO TID 08/16/22 10/08/22 trazodone 150 mg tablet 150 mg PO HS 08/16/22 10/08/22 Vicks Vaporub topical Q2H PRN 09/20/22 albuterol sulfate 90 mcg/actuation 1 inh inhalation Q4H PRN 09/20/22 09/20/22 aerosol inhaler (Ventolin HFA) clozapine 25 mg tablet 12.5 mg PO QHS PRN intermittent 09/20/22 10/08/22 explosive diarrhea diphenhydramine HCl 25 mg capsule 50 mg PO Q4-6H PRN 09/20/22 10/08/22 (Benadryl) dulaglutide 0.75 mg/0.5 mL mg subcut .weekly 09/20/22 subcutaneous pen injector (Trulicity) emollient (Vanicream topical) 1 applic topical Q6H PRN 09/20/22 10/08/22 guaifenesin 100 mg/5 mL oral 200 mg PO Q4H PRN 09/20/22 10/08/22 liquid (Siltussin SA) hyoscyamine 0.15 mg tablet 0.125 mg PO PRN 09/20/22 hyoscyamine sulfate 0.125 mg 0.125 mg PO Q4-6H PRN 09/20/22 09/20/22 tablet (Levsin) icosapent ethyl 1 gram capsule 2 g PO BID 09/20/22 10/08/22 (Vascepa) lactulose 10 gram/15 mL oral 10 g PO Q6H PRN 09/20/22 10/08/22 solution (Enulose) melatonin 2.5 mg chewable tablet 5 mg PO HS PRN 09/20/22 09/20/22 (VitaJoy Melatonin) nystatin 100,000 unit/gram topical 1 applic topical BID PRN 09/20/22 10/08/22 cream olanzapine 10 mg tablet 5 mg PO DAILY 09/20/22 10/08/22 ondansetron 8 mg disintegrating 8 mg translingual Q8H PRN 09/20/22 10/08/22 tablet polyethylene glycol 3350 17 17 g PO BID PRN 09/20/22 09/20/22 gram/dose oral powder (Gavilax) polyvinyl alcohol 1.4 % eye drops 1 drp ophthalmic (eye) PRN 09/20/22 (Artificial Tears (polyvinyl alcohol)) sodium chloride 0.65 % nasal spray 2 spray intranasal Q2H PRN 09/20/22 10/08/22 aerosol (Deep Sea Nasal) sodium phosphates 19 gram-7 ml UT PRN 10/26/22 gram/118 mL enema (Fleet Enema) tretinoin 0.025 % topical cream 1 applic topical HS 09/20/22 10/08/22 (Retin-A) umeclidinium 62.5 mcg/actuation 1 inh inhalation DAILY 09/20/22 10/08/22 blister powder for inhalation (Incruse Ellipta) albuterol sulfate 2.5 mg/3 mL 2.5 mg inhalation Q4H PRN 10/08/22 10/08/22 (0.083 %) solution for nebulization sennosides 8.6 mg-docusate sodium 1 tab-cap PO BID 10/08/22 10/08/22 50 mg tablet (Senexon-S) Allergies Allergy/AdvReac Type Severity Reaction Status Date / Time ziprasidone [From Geodon] Allergy Severe Anaphylaxis Verified 09/24/22 16:01 amoxicillin Allergy Intermediate Hives Verified 09/24/22 16:01 Penicillins Allergy Intermediate Hives Verified 09/24/22 16:01 amantadine [From Symmetrel] AdvReac Intermediate sedation Verified 09/24/22 16:01 [place] Allergy Severe renal Uncoded 08/17/22 00:01 failure [place] Allergy Intermediate Hives Uncoded 08/17/22 00:01 NSAID AdvReac Intermediate kidney Uncoded 08/16/22 23:59 disease Review of Systems Status of ROS: Reports: 6 or more systems reviewed and unremarkable except as noted in History and below [facility] Medical History ADHD Allergic rhinitis due to pollen Anxiety Asthma Autism Bipolar disorder Borderline intellectual functioning Chronic kidney disease, stage IV (severe) GERD (gastroesophageal reflux disease) History of reactive attachment disorder Hypercoagulopathy Hyperlipidemia Hyperparathyroidism due to renal insufficiency IgA deficiency Intermittent explosive disorder Kidney disease Mild cognitive impairment Mild intellectual disability Mood disorder Morbid obesity with BMI of 45.0-49.9, adult Oppositional defiant disorder DEBRA (obstructive sleep apnea) Pervasive developmental disorder PTSD (post-traumatic stress disorder) Pulmonary emboli Renal failure Suicidal ideation Suicide attempt Type 2 diabetes mellitus Surgical History History of appendectomy History of tonsillectomy and adenoidectomy Social History Smoking Status: Never smoker Do you use any of these nicotine containing products: None Second hand tobacco smoke exposure: No How often do you have a drink containing alcohol: never AUDIT-C Alcohol total score: 0 Non-prescribed substance use: denies use Exam Narrative: Exam Narrative: Objective: Patient is no apparent distress Mild soft tissue swelling over the dorsum the hand mild diffuse tenderness no crepitus or point tenderness Distal CMS normal in the fingers no open wounds noted pronation supination of the wrist is normal No pop no forearm tenderness or elbow tenderness Const: Vital Signs, click to edit/add: Vital Signs - 24 hr 10/08/22 22:00 Temperature 96.6 F L Pulse Rate [Right Pulse Oximeter] 85 Respiratory Rate 20 Blood Pressure [Le ft Upper Arm] 137/80 Pulse Oximetry 94 Oxygen Delivery Me thod Room Air Course Vital Signs Vital signs: Initial Vital Signs Temperature 96.6 F L 10/08/22 22:00 Temperature Source Temporal Artery Scan 10/08/22 22:00 Pulse Rate 85 10/08/22 22:00 Respiratory Rate 20 10/08/22 22:00 Blood Pressure 137/80 10/08/22 22:00 Blood Pressure Mean 99 10/08/22 22:00 Blood Pressure Position Sitting 10/08/22 22:00 Pulse Oximetry 94 10/08/22 22:00 Oxygen Delivery Method 10/08/22 22:00 Vital Signs Temperature 96.6 F L 10/08/22 22:00 Pulse Rate 85 10/08/22 22:00 Respiratory Rate 20 10/08/22 22:00 Blood Pressure 137/80 10/08/22 22:00 Pulse Oximetry 94 10/08/22 22:00 Oxygen Delivery Method 10/08/22 22:00 Temperature 96.6 F L 10/08/22 22:00 Pulse Rate 85 10/08/22 22:00 Respiratory Rate 20 10/08/22 22:00 Blood Pressure 137/80 10/08/22 22:00 Pulse Oximetry 94 10/08/22 22:00 Oxygen Delivery Method 10/08/22 22:00 Medical Decision Making MDM Narrative Medical decision making narrative: Patient punched a hard surface last night will check an x-ray of her hand that seems weight where she is having or trouble, she has no snuffbox tenderness no wrist pain no forearm discomfort other than seems to radiate from the dorsum of the hand no open wounds noted. If the x-ray is reassuring I think we can put her in a splint and letter followup with primary care in the next few days. Addendum: The x-ray by my read shows no obvious fracture dislocation. Will place a wrist splint, may ice if tolerated, follow up with primary care in the next couple of days. Discharge Plan Discharge Clinical Impression: Hand injury Patient Disposition: Home w/ Parent or Adult Condition: Stable Additional Instructions: Wrist brace to the right hand, icing as tolerated, observation, light use of the right hand. Update primary care doctor next 2-3 days. Activity Level: Light activity Discharge Diet: Regular Prescriptions: No Action lactulose [Enulose] 10 gram/15 mL solution 10 g PO Q6H PRN Deep Sea Nasal 0.65 % aerosol,spray 2 spray INTRANASAL Q2H PRN albuterol sulfate [Ventolin HFA] 90 mcg/actuation HFA aerosol inhaler 1 inh inhalation Q4H PRN polyvinyl alcohol [Artificial Tears (polyvin alc)] 1.4 % drops 1 drp ophthalmic (eye) PRN Fleet Enema 19-7 gram/118 mL enema UT PRN hyoscyamine 0.15 mg tablet 0.125 mg PO PRN nystatin 100,000 unit/gram cream 1 applic TOPICAL BID PRN olanzapine 10 mg tablet 5 mg PO DAILY Rx Instructions: AM ondansetron 8 mg tablet,disintegrating 8 mg translingual Q8H PRN guaifenesin [Siltussin SA] 100 mg/5 mL liquid 200 mg PO Q4H PRN diphenhydramine HCl [Benadryl] 25 mg capsule 50 mg PO Q4-6H PRN emollient [Vanicream] Cream 1 applic topical Q6H PRN Vicks Vaporub topical Q2H PRN melatonin [VitaJoy Melatonin] 2.5 mg tablet,chewable 5 mg PO HS PRN polyethylene glycol 3350 [Gavilax] 17 gram/dose powder 17 g PO BID PRN tretinoin [Retin-A] 0.025 % cream 1 applic topical HS clozapine 25 mg tablet 12.5 mg PO QHS PRN (Reason: intermittent explosive diarrhea) Hold Instructions: Doctor's Order Trulicity 0.75 mg/0.5 mL pen injector SUBCUT .weekly icosapent ethyl [Vascepa] 1 gram capsule 2 g PO BID Incruse Ellipta 62.5 mcg/actuation blister with device 1 inh INHALATION DAILY hyoscyamine sulfate [Levsin] 0.125 mg tablet 0.125 mg PO Q4-6H PRN Rx Instructions: 1-2tabs prn sennosides-docusate sodium [Senexon-S] 8.6-50 mg tablet 1 tab-cap PO BID albuterol sulfate 2.5 mg /3 mL (0.083 %) solution for nebulization 2.5 mg inhalation Q4H PRN atorvastatin 40 mg tablet 40 mg PO DAILY acetaminophen 325 mg tablet 650 mg PO BID PRN olanzapine 5 mg tablet 5 mg PO Q4H PRN Label Comments: am (DME) Accu-Chek Guide test strips Strip MISCELLANEOUS Label Comments: USE TO TEST TWICE DAILY tramadol 50 mg tablet 50 mg PO BID PRN acetaminophen 500 mg tablet 500 mg PO BID PRN levothyroxine 100 mcg tablet 100 mcg PO DAILY (DME) lancets [Accu-Chek Fastclix Lancet Drum] Misc MISCELLANEOUS Label Comments: USE DIRECTED amlodipine 10 mg tablet 10 mg PO DAILY divalproex 500 mg tablet extended release 24 hr 1,000 mg PO BID calcium carbonate [Calcium Antacid] 200 mg calcium (500 mg) tablet,chewable 500 mg PO BID PRN fluoxetine 10 mg capsule 30 mg PO DAILY olanzapine 15 mg tablet 15 mg PO HS gabapentin 100 mg capsule 300 mg PO DAILY epinephrine 0.3 mg/0.3 mL auto-injector 0.3 mg IM DAILY PRN fluticasone propion-salmeterol [Advair Diskus] 100-50 mcg/dose blister with device 1 inh INHALATION Q12H albuterol sulfate 90 mcg/actuation HFA aerosol inhaler 1 - 2 puff INHALATION TID PRN loratadine [Allergy Relief (loratadine)] 10 mg tablet 10 mg PO DAILY cholecalciferol (vitamin D3) 25 mcg (1,000 unit) capsule 25 mcg PO DAILY cyclobenzaprine 5 mg tablet 5 mg PO Q8H PRN Victoza 3-Guero 0.6 mg/0.1 mL (18 mg/3 mL) pen injector SUBCUT Trulicity 1.5 mg/0.5 mL pen injector 1.5 mg SUBCUT QWEEK sennosides-docusate sodium [Senna Plus] 8.6-50 mg tablet 2 tab-cap PO BID pantoprazole 40 mg tablet,delayed release (DR/EC) 40 mg PO DAILY sucralfate 1 gram tablet 1 g PO BID urea 20 % cream 1 applic TOPICAL DAILY montelukast 10 mg tablet 10 mg PO HS melatonin 5 mg capsule 5 mg PO HS PRN calcitriol 0.25 mcg capsule 0.25 mcg PO DAILY glycerin (adult) [Fleet Glycerin (Adult)] Suppository 1 supp UT DAILY PRN propranolol 60 mg tablet 60 mg PO TID Label Comments: hold if pulse is below 65 trazodone 150 mg tablet 150 mg PO HS Follow Up/Referrals: Provider,Not a Local [Primary Care Provider] - Stand Alone Forms: [facility]
== END 2022-10-09 00:03 | disposition home or self-care (01) ==
PROVIDERS: Emergency Provider Family Medicine
DX: S69.91XA Unspecified injury of right wrist, hand and finger(s), initial encounter (principal); W22.03XA Walked into furniture, initial encounter; Y93.9 Activity, unspecified; Y92.090 Kitchen in other non-institutional residence as the place of occurrence of the external cause; Y99.9 Unspecified external cause status
CPT/HCPCS: 73130; 99283

== ENCOUNTER 2022-10-09 | Outpatient (CLI) | payer MEDICARE, OTHER, SELFPAY | END 2022-10-09 00:01 | disposition home or self-care (01) | LOC: AMB 11-04 20:51 | PROVIDERS: Visit Provider Family Medicine | DX: M25.539 Pain in unspecified wrist (principal) | CPT/HCPCS: A0425; A0428 ==

== ENCOUNTER 2022-10-18 12:08 | Emergency (ER) | payer MEDICARE, OTHER, SELFPAY ==
[2022-10-18 12:42] VITALS: BP 128/84; PULSE 89; RESP 18; TEMP 36.5; O2SAT 95; BMI 53.3
--- NOTE | 2022-10-18 13:14 | CRLHL7_ITS ---
For Patients: As a result of the Cures Act, medical imaging exams and procedure reports are released immediately into your electronic medical record. You may view this report before your referring provider. If you have questions, please contact your health care provider. Indication: Pain and swelling Technique: Left ankle 2 views Comparison: None Findings: Bones: Alignment is normal. No fractures or bone lesions. Small plantar and posterior calcaneal spurs. Joint spaces: Joint spaces are well maintained. No degenerative changes. Soft tissues: Unremarkable. Impression: No fracture or synovitis. Dictated by Arnol Chapa MD @ 10/18/2022 2:00:00 PM (Electronically Signed)
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
--- NOTE | 2022-10-18 14:16 | ED.NURSE ---
Derrek wrap applied to pt L ankle
== END 2022-10-18 14:19 | disposition home or self-care (01) ==
PROVIDERS: Emergency Provider Family Medicine
DX: S93.402A Sprain of unspecified ligament of left ankle, initial encounter (principal); W18.30XA Fall on same level, unspecified, initial encounter; Y93.9 Activity, unspecified; Y92.9 Unspecified place or not applicable; Y99.9 Unspecified external cause status
CPT/HCPCS: 73600; 99283; 99284

== ENCOUNTER 2023-01-08 23:22 | Emergency (ER) | payer MEDICARE, OTHER, SELFPAY ==
[2023-01-08 23:34] VITALS: BP 133/89; PULSE 80; RESP 24; TEMP 36.2; O2SAT 93; BMI 51.6
--- NOTE | 2023-01-09 00:22 | ED.SOB ---
HPI - SOB/Dyspnea General Chief Complaint: Shortness of Breath/Dyspnea Stated Complaint: Shortness of Breath Time Seen by Provider: 01/09/23 00:14 History of Present Illness HPI Narrative: 27-year-old young woman returning to the emergency department presenting on triage with complaint of abdominal pain and shortness of breath. However with further questioning it sounds to be more of a pleuritic midsternal chest pain. Notes a history of heart clot and pulmonary embolus. This is contrary to denying this occurrence upon recent visit. She does not recall where now initially noting that it was diagnosed within the last 2 years. I researched our records here I cannot see evidence for confirmation but do see diagnosis in problem list. Regardless is not currently anticoagulated. Reports also having a cough lately and some chills. No leg pain or new swelling noted. Underlying history of renal insufficiency and chronically elevated D-dimers it appears on further review. Morbid obesity, [place] with sleep apnea resulting in lower oxygen saturations. Normally uses BiPAP in sleep. Is accompanied by staff from alf where she resides. Related Data Home Medications Medication Instructions Recorded Confirmed acetaminophen 500 mg tablet 500 mg PO BID PRN 05/27/22 12/24/22 albuterol sulfate 90 mcg/actuation 1 - 2 puff inhalation TID PRN 05/27/22 12/24/22 aerosol inhaler amlodipine 10 mg tablet 10 mg PO DAILY 05/27/22 12/24/22 atorvastatin 40 mg tablet 40 mg PO DAILY 05/27/22 12/24/22 blood sugar diagnostic (Accu-Chek 05/27/22 12/24/22 Guide test strips) calcium carbonate 200 mg calcium 500 mg PO BID PRN 05/27/22 12/24/22 (500 mg) chewable tablet (Calcium Antacid) cholecalciferol (vitamin D3) 25 25 mcg PO DAILY 05/27/22 12/24/22 mcg (1,000 unit) capsule cyclobenzaprine 5 mg tablet 5 mg PO Q8H PRN 05/27/22 12/24/22 divalproex 500 mg tablet,extended 1,000 mg PO BID 05/27/22 12/24/22 release 24 hr dulaglutide 1.5 mg/0.5 mL 1.5 mg subcut QWEEK 05/27/22 12/24/22 subcutaneous pen injector (Trulicity) epinephrine 0.3 mg/0.3 mL 0.3 mg IM DAILY PRN 05/27/22 12/24/22 injection, auto-injector fluoxetine 10 mg capsule 30 mg PO DAILY 05/27/22 12/24/22 fluticasone 100 mcg-salmeterol 50 1 inh inhalation Q12H 05/27/22 12/24/22 mcg/dose blistr powdr for inhalation (Advair Diskus) gabapentin 100 mg capsule 300 mg PO DAILY 05/27/22 12/24/22 lancets (Accu-Chek Fastclix Lancet 05/27/22 12/24/22 Drum) levothyroxine 100 mcg tablet 100 mcg PO DAILY 05/27/22 12/24/22 loratadine 10 mg tablet (Allergy 10 mg PO DAILY 05/27/22 12/24/22 Relief (loratadine)) olanzapine 15 mg tablet 15 mg PO HS 05/27/22 12/24/22 olanzapine 5 mg tablet 5 mg PO Q4H PRN 05/27/22 12/24/22 tramadol 50 mg tablet 50 mg PO BID PRN 05/27/22 12/24/22 melatonin 5 mg capsule 5 mg PO HS PRN 06/14/22 12/24/22 montelukast 10 mg tablet 10 mg PO HS 06/14/22 12/24/22 pantoprazole 40 mg tablet,delayed 40 mg PO DAILY 06/14/22 12/24/22 release sucralfate 1 gram tablet 1 g PO BID 06/14/22 12/24/22 urea 20 % topical cream 1 applic topical DAILY 06/14/22 12/24/22 calcitriol 0.25 mcg capsule 0.25 mcg PO DAILY 08/16/22 12/24/22 glycerin (adult) (Fleet Glycerin 1 supp CO DAILY PRN 08/16/22 12/24/22 (Adult) rectal suppository) propranolol 60 mg tablet 60 mg PO TID 08/16/22 12/24/22 trazodone 150 mg tablet 150 mg PO HS 08/16/22 12/24/22 albuterol sulfate 90 mcg/actuation 1 inh inhalation Q4H PRN 09/20/22 12/24/22 aerosol inhaler (Ventolin HFA) emollient (Vanicream topical) 1 applic topical Q6H PRN 09/20/22 12/24/22 hyoscyamine sulfate 0.125 mg 0.125 mg PO Q4-6H PRN 09/20/22 12/24/22 tablet (Levsin) polyethylene glycol 3350 17 17 g PO BID PRN 09/20/22 12/24/22 gram/dose oral powder (Gavilax) umeclidinium 62.5 mcg/actuation 1 inh inhalation DAILY 09/20/22 12/24/22 blister powder for inhalation (Incruse Ellipta) albuterol sulfate 2.5 mg/3 mL 2.5 mg inhalation Q4H PRN 10/08/22 12/24/22 (0.083 %) solution for nebulization sennosides 8.6 mg-docusate sodium 1 tab-cap PO BID 10/08/22 12/24/22 50 mg tablet (Senexon-S) icosapent ethyl 1 gram capsule 1 g PO BID 12/10/22 12/24/22 (Vascepa) triamcinolone acetonide 0.1 % 1 applic topical QDAY PRN chest 12/10/22 12/24/22 topical cream scars clozapine 25 mg tablet 50 mg PO BID intermittent 12/24/22 12/24/22 explosive diarrhea Previous Rx's Medication Instructions Recorded ciprofloxacin HCl 0.3 % eye drops See Rx Instructions ophthalmic 12/24/22 (eye) .COMPLEX #10 mL Allergies Allergy/AdvReac Type Severity Reaction Status Date / Time ziprasidone [From Geodon] Allergy Severe Anaphylaxis Verified 12/24/22 10:34 amoxicillin Allergy Intermediate Hives Verified 12/24/22 10:34 Penicillins Allergy Intermediate Hives Verified 12/24/22 10:34 amantadine [From Symmetrel] AdvReac Intermediate sedation Verified 12/24/22 10:34 Alden Allergy Severe renal Uncoded 12/24/22 10:34 failure Pineapple Allergy Intermediate Hives Uncoded 12/24/22 10:34 NSAID AdvReac Intermediate kidney Uncoded 12/24/22 10:34 disease Review of Systems Status of ROS: Reports: 6 or more systems reviewed and unremarkable except as noted in History and below [facility] Medical History ADHD Allergic rhinitis due to pollen Anxiety Asthma Autism Bipolar disorder Borderline intellectual functioning Chronic kidney disease, stage IV (severe) Conjunctivitis GERD (gastroesophageal reflux disease) History of reactive attachment disorder Hypercoagulopathy Hyperlipidemia Hyperparathyroidism due to renal insufficiency IgA deficiency Intermittent explosive disorder Kidney disease Mild cognitive impairment Mild intellectual disability Mood disorder Morbid obesity with BMI of 45.0-49.9, adult Oppositional defiant disorder DEBRA (obstructive sleep apnea) Pervasive developmental disorder PTSD (post-traumatic stress disorder) Pulmonary emboli Renal failure Suicidal ideation Suicide attempt Type 2 diabetes mellitus Surgical History History of appendectomy History of tonsillectomy and adenoidectomy Social History Smoking Status: Never smoker Do you use any of these nicotine containing products: None Second hand tobacco smoke exposure: No How often do you have a drink containing alcohol: never AUDIT-C Alcohol total score: 0 Non-prescribed substance use: denies use service: No Exam Narrative: Exam Narrative: Calm. Breathing relatively easily. Congested nasopharyngeal breathing though. Head is atraumatic. Oropharynx is thick particularly posteriorly. Neck is supple, shorter. Lungs are clear. Heart is in a regular rate and rhythm. Distant. Examination of the chest in area of discomfort demonstrates the mid sternum. Vaguely reproducible to discomfort here. Abdomen is obese soft and nontender. Extremities are with mild dependent edema lower. Negative Homans. Const: Vital Signs, click to edit/add: Vital Signs - 24 hr 01/08/23 23:34 01/09/23 03:33 Temperature 97.2 F L Pulse Rate [Pulse Oximeter] 80 71 Respiratory Rate 24 18 Blood Pressure [Le ft Forearm] 133/89 Pulse Oximetry 93 96 Oxygen Delivery Me thod Room Air Room Air Documenting provider has reviewed patient's vital signs: yes Course Vital Signs Vital signs: Initial Vital Signs Temperature 97.2 F L 01/08/23 23:34 Temperature Source Temporal Artery Scan 01/08/23 23:34 Pulse Rate 80 01/08/23 23:34 Pulse Rhythm 01/08/23 23:34 Respiratory Rate 24 01/08/23 23:34 Blood Pressure 133/89 01/08/23 23:34 Blood Pressure Mean 103 01/08/23 23:34 Blood Pressure Position Sitting 01/08/23 23:34 Pulse Oximetry 93 01/08/23 23:34 Oxygen Delivery Method 01/08/23 23:34 Vital Signs Temperature 97.2 F L 01/08/23 23:34 Pulse Rate 80 01/08/23 23:34 Respiratory Rate 24 01/08/23 23:34 Blood Pressure 133/89 01/08/23 23:34 Pulse Oximetry 93 01/08/23 23:34 Oxygen Delivery Method 01/08/23 23:34 Temperature 97.2 F L 01/08/23 23:34 Pulse Rate 71 01/09/23 03:33 Respiratory Rate 18 01/09/23 03:33 Blood Pressure 133/89 01/08/23 23:34 Pulse Oximetry 96 01/09/23 03:33 Oxygen Delivery Method 01/09/23 03:33 MDM - SOB/Dyspnea MDM Narrative Medical decision making narrative: Did initial labs monitoring on oximetry and cardiac monitor technician. Did desaturate into upper 80s in deeper congested sleep. As noted was able to sleep. Reported having also taken her evening medications. Chest x-ray decreased lung volume. Did review these images. No infiltrate apparent. Reviewed labs which do appear to be at baseline. Unfortunately with elevated D-dimer. Reviewed again with Elisa what was going on. She still is complaining of chest discomfort and now noting herself to feel more short of breath. I had been anticipating discharge given what I think is chronic elevation of labs and mild symptoms frankly no new leg symptoms. Given renal function cannot do contrasted study for pulmonary embolus. However began to complain of feeling more short of breath as noted and along with chest discomfort. Perhaps ultrasound of lower extremities would be helpful reassuring that unlikely to have new clot burden. Indeed no thrombus was identified. I did review with the corporate staff accountant. Trial of GI cocktail reportedly changed nothing and neither did giving acetaminophen earlier in course. Elisa did sleep during time in the emergency department. Medical Records Attestation: I reviewed the patient's medical records. Lab Data Attestation: I reviewed the patient's lab results. Labs: Lab Results 01/08/23 01/09/23 01/09/23 Range/Units 23:49 00:25 00:45 WBC 8.14 (4.50-11.00) K/uL RBC 3.52 L (4.00-5.20) m/uL Hgb 10.5 L (12.0-16.0) gm/dL Hct 33.0 (33.0-51.0) % MCV 94 (80-100) fL MCH 30 (26-34) pg MCHC 32 (32-36) gm/dL RDW Coeff of Moshe 15.2 (11.5-15.5) % Plt Count 184 (140-440) K/uL Neut % (Auto) 55.7 (42.0-72.0) % Lymph % (Auto) 31.4 (20-44) % Frio % (Auto) 9.1 (0.0-11.0) % Eos % (Auto) 3.1 (0.0-7.0) % Baso % (Auto) 0.2 (0.0-3.0) % Neut # (Auto) 4.53 (1.7-7.0) K/uL Lymph # (Auto) 2.56 (0.90-2.90) K/uL Frio # (Auto) 0.70 (0.00-0.90) K/UL Eos # (Auto) 0.25 (0.00-0.50) K/uL Baso # (Auto) 0.02 (0.00-0.30) K/uL D-Dimer Quant (PE/DVT) (0.00-0.50) ug/ml Sodium (135-149) mmol/L Potassium (3.6-5.1) mmol/L Chloride (96-114) mmol/L Carbon Dioxide (20-32) mmol/L BUN (5-24) mg/dL Creatinine (0.5-1.5) mg/dL Estimated Creat Clear Estimated GFR ml/min Glucose (60-115) mg/dL Calcium (8.4-10.6) mg/dL Total Bilirubin (0.1-1.5) mg/dL Direct Bilirubin (0.0-0.5) mg/dL AST (12-35) U/L ALT (4-35) U/L Alkaline Phosphatase (40-150) U/L Troponin I (0.01-0.04) ng/mL C-Reactive Protein (0.5-1.0) mg/dL NT-Pro-B Natriuret Pep pg/mL Total Protein (6.0-8.3) g/dL Albumin (3.3-5.0) g/dL SARS-CoV-2 (PCR) Negative SARS-CoV-2 (Negative) Influenza Type A (PCR) Negative PCR FLU A (Negative) Influenza Type B (PCR) Negative PCR FLU B (Negative) RSV (PCR) Negative PCR RSV (Negative) POC Troponin I 0.00 L (0.01-0.04) ng/ml 01/09/23 01/09/23 01/09/23 Range/Units 00:45 00:45 00:45 WBC (4.50-11.00) K/uL RBC (4.00-5.20) m/uL Hgb (12.0-16.0) gm/dL Hct (33.0-51.0) % MCV (80-100) fL MCH (26-34) pg MCHC (32-36) gm/dL RDW Coeff of Moshe (11.5-15.5) % Plt Count (140-440) K/uL Neut % (Auto) (42.0-72.0) % Lymph % (Auto) (20-44) % Frio % (Auto) (0.0-11.0) % Eos % (Auto) (0.0-7.0) % Baso % (Auto) (0.0-3.0) % Neut # (Auto) (1.7-7.0) K/uL Lymph # (Auto) (0.90-2.90) K/uL Frio # (Auto) (0.00-0.90) K/UL Eos # (Auto) (0.00-0.50) K/uL Baso # (Auto) (0.00-0.30) K/uL D-Dimer Quant (PE/DVT) 2.71 H (0.00-0.50) ug/ml Sodium 139 (135-149) mmol/L Potassium 4.4 (3.6-5.1) mmol/L Chloride 105 (96-114) mmol/L Carbon Dioxide 28 (20-32) mmol/L BUN 35 H (5-24) mg/dL Creatinine 3.1 H (0.5-1.5) mg/dL Estimated Creat Clear 24.96 Estimated GFR 21 ml/min Glucose 216 H (60-115) mg/dL Calcium 9.4 (8.4-10.6) mg/dL Total Bilirubin 0.4 (0.1-1.5) mg/dL Direct Bilirubin 0.3 (0.0-0.5) mg/dL AST 24 (12-35) U/L ALT 36 H (4-35) U/L Alkaline Phosphatase 63 (40-150) U/L Troponin I < 0.01 L (0.01-0.04) ng/mL C-Reactive Protein 2.4 H (0.5-1.0) mg/dL NT-Pro-B Natriuret Pep 230 pg/mL Total Protein 7.7 (6.0-8.3) g/dL Albumin 3.9 (3.3-5.0) g/dL SARS-CoV-2 (PCR) (Negative) Influenza Type A (PCR) (Negative) Influenza Type B (PCR) (Negative) RSV (PCR) (Negative) POC Troponin I (0.01-0.04) ng/ml ECG Data Attestation: I personally reviewed and interpreted this ECG as follows: (Normal sinus rhythm. Rate of 79. Lower amplitude) Discharge Plan Discharge Clinical Impression: Apnea, sleep, Dyspnea, Chest pain Patient Disposition: Home w/ Parent or Adult Condition: Stable Additional Instructions: Return for worsening chest pain, particularly if accompanied by shortness of breath or lightheadedness or fever. Rest today. Do your best to take care of your diabetes. Prescriptions: No Action triamcinolone acetonide 0.1 % cream 1 applic topical QDAY PRN (Reason: chest scars) ciprofloxacin HCl 0.3 % drops See Rx Instructions ophthalmic (eye) .COMPLEX Qty: 10 0RF Rx Instructions: put 1-2 drps in affected eye(s) every 2hr up to 8 times/day x2days; then 4 times/day x5days ophthalmic (eye) albuterol sulfate [Ventolin HFA] 90 mcg/actuation HFA aerosol inhaler 1 inh inhalation Q4H PRN emollient [Vanicream] Cream 1 applic topical Q6H PRN polyethylene glycol 3350 [Gavilax] 17 gram/dose powder 17 g PO BID PRN Incruse Ellipta 62.5 mcg/actuation blister with device 1 inh INHALATION DAILY hyoscyamine sulfate [Levsin] 0.125 mg tablet 0.125 mg PO Q4-6H PRN Rx Instructions: 1-2tabs prn icosapent ethyl [Vascepa] 1 gram capsule 1 g PO BID clozapine 25 mg tablet 50 mg PO BID Hold Instructions: Doctor's Order sennosides-docusate sodium [Senexon-S] 8.6-50 mg tablet 1 tab-cap PO BID albuterol sulfate 2.5 mg /3 mL (0.083 %) solution for nebulization 2.5 mg inhalation Q4H PRN atorvastatin 40 mg tablet 40 mg PO DAILY olanzapine 5 mg tablet 5 mg PO Q4H PRN Label Comments: am (DME) Accu-Chek Guide test strips Strip MISCELLANEOUS Label Comments: USE TO TEST TWICE DAILY tramadol 50 mg tablet 50 mg PO BID PRN acetaminophen 500 mg tablet 500 mg PO BID PRN levothyroxine 100 mcg tablet 100 mcg PO DAILY (DME) lancets [Accu-Chek Fastclix Lancet Drum] Misc MISCELLANEOUS Label Comments: USE DIRECTED amlodipine 10 mg tablet 10 mg PO DAILY divalproex 500 mg tablet extended release 24 hr 1,000 mg PO BID calcium carbonate [Calcium Antacid] 200 mg calcium (500 mg) tablet,chewable 500 mg PO BID PRN fluoxetine 10 mg capsule 30 mg PO DAILY olanzapine 15 mg tablet 15 mg PO HS gabapentin 100 mg capsule 300 mg PO DAILY epinephrine 0.3 mg/0.3 mL auto-injector 0.3 mg IM DAILY PRN fluticasone propion-salmeterol [Advair Diskus] 100-50 mcg/dose blister with device 1 inh INHALATION Q12H albuterol sulfate 90 mcg/actuation HFA aerosol inhaler 1 - 2 puff INHALATION TID PRN loratadine [Allergy Relief (loratadine)] 10 mg tablet 10 mg PO DAILY cholecalciferol (vitamin D3) 25 mcg (1,000 unit) capsule 25 mcg PO DAILY cyclobenzaprine 5 mg tablet 5 mg PO Q8H PRN Trulicity 1.5 mg/0.5 mL pen injector 1.5 mg SUBCUT QWEEK pantoprazole 40 mg tablet,delayed release (DR/EC) 40 mg PO DAILY sucralfate 1 gram tablet 1 g PO BID urea 20 % cream 1 applic TOPICAL DAILY montelukast 10 mg tablet 10 mg PO HS melatonin 5 mg capsule 5 mg PO HS PRN calcitriol 0.25 mcg capsule 0.25 mcg PO DAILY glycerin (adult) [Fleet Glycerin (Adult)] Suppository 1 supp CO DAILY PRN propranolol 60 mg tablet 60 mg PO TID Label Comments: hold if pulse is below 65 trazodone 150 mg tablet 150 mg PO HS Follow Up/Referrals: Provider,Not a Local [Primary Care Provider] - Stand [facility]
--- NOTE | 2023-01-09 00:24 | CRLHL7_ITS ---
For Patients: As a result of the Century Cures Act, medical imaging exams and procedure reports are released immediately into your electronic medical record. You may view this report before your referring provider. If you have questions, please contact your health care provider. INDICATION: Sternal pleuritic chest pain, cough TECHNIQUE: Chest radiograph 1 view COMPARISON: 09/18/2022 FINDINGS: The sensitivity and specificity of the exam are severely limited by the patient`s body habitus. Mediastinum: The mediastinum is normal in appearance. The heart silhouette is normal in size and morphology. Lung: Small lung volumes with mild pulmonary vascular congestion and basilar subsegmental atelectasis is seen. The right apex is obscured by the patient`s chin. No sign of pleural effusion seen. No pneumothorax is identified. Bone and Soft tissue: Unremarkable for age. IMPRESSION: 1. Small lung volumes with mild pulmonary vascular congestion and basilar subsegmental atelectasis is seen. Dictated by Silver Mark MD @ 01/09/2023 12:51:09 AM Dictated by: Silver Mark MD @ 01/09/2023 00:51:12 (Electronically Signed)
[2023-01-09 00:32] LABS: PCR FLU A Negative PCR FLU A (Negative); PCR FLU B Negative PCR FLU B (Negative); PCR RSV Negative PCR RSV (Negative)
[2023-01-09 00:33] LABS: SARS PCR* Negative SARS-CoV-2 (Negative)
[2023-01-09 00:53] LABS: Basophils Absolute Auto 0.02 K/uL (0.00-0.30); Basophils Percent Auto 0.2 % (0.0-3.0); Eosinophils Absolute Auto 0.25 K/uL (0.00-0.50); Eosinophils Percent Auto 3.1 % (0.0-7.0); Hemoglobin* 10.5 gm/dL (12.0-16.0); Immature Granulocytes Abs Auto 0.04 K/uL (0.00-0.30); Immature Granulocytes Pct Auto 0.5 %; Lymphocytes Absolute Auto 2.56 K/uL (0.90-2.90); Lymphocytes Percent Auto 31.4 % (20-44); Mean Corpuscular HGB Conc 32 gm/dL (32-36); Mean Corpuscular Hemoglobin 30 pg (26-34); Mean Corpuscular Volume 94 fL (80-100); Monocytes Percent Auto 9.1 % (0.0-11.0); Neutrophils Absolute Auto 4.53 K/uL (1.7-7.0); Neutrophils Percent Auto 55.7 % (42.0-72.0); Platelet Count* 184 K/uL (140-440); RDW Coefficient of Variation % 15.2 % (11.5-15.5); Red Blood Count 3.52 m/uL (4.00-5.20); White Blood Count* 8.14 K/uL (4.50-11.00)
[2023-01-09 00:54] LABS: Slide Review Reflex No
[2023-01-09 01:07] LABS: Albumin* 3.9 g/dL (3.3-5.0); Chloride* 105 mmol/L (96-114)
[2023-01-09 01:08] LABS: Potassium* 4.4 mmol/L (3.6-5.1); Sodium* 139 mmol/L (135-149)
[2023-01-09 01:10] LABS: Creatinine* 3.1 mg/dL (0.5-1.5); Est. Creatinine Clearance* 24.96; Estimated Glomerular Filt Rate 21 ml/min
[2023-01-09 01:11] LABS: Alanine Aminotransferase* 36 U/L (4-35); Alkaline Phosphatase* 63 U/L (40-150); Aspartate Amino Transferase* 24 U/L (12-35); Bilirubin Direct* 0.3 mg/dL (0.0-0.5); Bilirubin Total* 0.4 mg/dL (0.1-1.5); Blood Urea Nitrogen* 35 mg/dL (5-24); Calcium* 9.4 mg/dL (8.4-10.6); Carbon Dioxide* 28 mmol/L (20-32); Glucose* 216 mg/dL (60-115); Total Protein* 7.7 g/dL (6.0-8.3)
[2023-01-09 01:13] LABS: C Reactive Protein* 2.4 mg/dL (0.5-1.0); D Dimer Quantitative* 2.71 ug/ml (0.00-0.50)
[2023-01-09 01:27] LABS: NT Pro B Type NatriureticPept* 230 pg/mL; Troponin I* < 0.01 ng/mL (0.01-0.04)
--- NOTE | 2023-01-09 02:15 | CRLHL7_ITS ---
For Patients: As a result of the Century Cures Act, medical imaging exams and procedure reports are released immediately into your electronic medical record. You may view this report before your referring provider. If you have questions, please contact your health care provider. INDICATION: Chest pain, dyspnea, elevated D-dimer TECHNIQUE: Ultrasound venous duplex bilateral lower extremities. Real-time haley-scale (B mode 2D), color Doppler, and spectral Doppler imaging were performed with compression and augmentation. COMPARISON: None FINDINGS: Deep veins: The bilateral common femoral, femoral, popliteal, and visualized calf veins are fully compressible, demonstrate normal color flow, and normal response to mechanical augmentation. The Duplex Doppler waveforms are normal in appearance. Superficial veins: The visualized greater saphenous and superficial veins of the leg and calf are unremarkable. Soft tissue: No masses or cysts are identified. No adenopathy is seen. IMPRESSION: 1. No sonographic evidence of acute deep venous thrombosis seen in either lower extremities. Dictated by: Silver Mark MD @ 01/09/2023 03:50:59 (Electronically Signed)
[2023-01-09 03:33] VITALS: PULSE 71; RESP 18; O2SAT 96
[2023-01-09] MEDS: GI COCKTAIL (VISC LIDO/ANTACID) 30 ML PO (03:48)
== END 2023-01-09 04:14 | disposition home or self-care (01) ==
PROVIDERS: Emergency Provider Family Medicine
DX: R07.9 Chest pain, unspecified (principal); R06.00 Dyspnea, unspecified; G47.30 Sleep apnea, unspecified
CPT/HCPCS: 36415; 71045; 80048; 80076; 83880; 84484; 85025; 85379; 86140; 87502; 87634; 87635; 93005; 93970; 99284; 99285; A9270

== ENCOUNTER 2023-01-10 21:59 | Outpatient (CLI) | payer MEDICARE, OTHER, SELFPAY | END 2023-01-10 22:00 | disposition home or self-care (01) | LOC: AMB 01-22 02:27 | PROVIDERS: Visit Provider Family Medicine | DX: F91.9 Conduct disorder, unspecified (principal) | CPT/HCPCS: A0425; A0429 ==

== ENCOUNTER 2023-01-21 12:31 | Outpatient (CLI) | payer MEDICARE, OTHER, SELFPAY | END 2023-01-21 12:32 | disposition home or self-care (01) | LOC: AMB 02-20 12:05 | PROVIDERS: Visit Provider Emergency Medicine Emergency Medical Services | DX: R53.83 Other fatigue (principal); R41.0 Disorientation, unspecified | CPT/HCPCS: A0425; A0427 ==

== ENCOUNTER 2023-01-21 13:00 | Emergency (ER) | payer MEDICARE, OTHER, SELFPAY ==
[2023-01-21 13:05] VITALS: BP 128/89; PULSE 85; RESP 16; TEMP 36.4; O2SAT 93; BMI 51.3
--- NOTE | 2023-01-21 13:56 | CRLHL7_ITS ---
For Patients: As a result of the Cures Act, medical imaging exams and procedure reports are released immediately into your electronic medical record. You may view this report before your referring provider. If you have questions, please contact your health care provider. INDICATION: Hypoxia. COMPARISON: 01/09/2023 and 09/18/2022. FINDINGS: AP and lateral views of the chest were obtained. The cardiac silhouette and pulmonary vasculature are within normal limits. The lungs are clear bilaterally. IMPRESSION: No evidence of acute pulmonary disease. Dictated by Buddy Arvizu MD @ 01/21/2023 2:27:56 PM (Electronically Signed)
--- NOTE | 2023-01-21 14:03 | ED.GENADULT ---
HPI - General Adult General Chief complaint: Weakness Stated complaint: Accidental overdose Time Seen by Provider: 01/21/23 13:11 History of Present Illness HPI narrative: This 27-year-old female resides in a skilled nursing and comes in because of generalized malaise and fatigue. She did have her clozapine increased to 125 mg b.i.d. within the last week. She states that she does have a cough and does arrive with oximetry decreased in the 86-88% range. She is not aware of a fever but states that she did feel hot and cold at times. Her symptoms started over the past couple days. Related Data Home Medications Medication Instructions Recorded Confirmed acetaminophen 500 mg tablet 500 mg PO BID PRN 05/27/22 12/24/22 albuterol sulfate 90 mcg/actuation 1 - 2 puff inhalation TID PRN 05/27/22 12/24/22 aerosol inhaler amlodipine 10 mg tablet 10 mg PO DAILY 05/27/22 12/24/22 atorvastatin 40 mg tablet 40 mg PO DAILY 05/27/22 12/24/22 blood sugar diagnostic (Accu-Chek 05/27/22 12/24/22 Guide test strips) calcium carbonate 200 mg calcium 500 mg PO BID PRN 05/27/22 12/24/22 (500 mg) chewable tablet (Calcium Antacid) cholecalciferol (vitamin D3) 25 25 mcg PO DAILY 05/27/22 12/24/22 mcg (1,000 unit) capsule cyclobenzaprine 5 mg tablet 5 mg PO Q8H PRN 05/27/22 12/24/22 divalproex 500 mg tablet,extended 1,000 mg PO BID 05/27/22 12/24/22 release 24 hr dulaglutide 1.5 mg/0.5 mL 1.5 mg subcut QWEEK 05/27/22 12/24/22 subcutaneous pen injector (Trulicity) epinephrine 0.3 mg/0.3 mL 0.3 mg IM DAILY PRN 05/27/22 12/24/22 injection, auto-injector fluoxetine 10 mg capsule 30 mg PO DAILY 05/27/22 12/24/22 fluticasone 100 mcg-salmeterol 50 1 inh inhalation Q12H 05/27/22 12/24/22 mcg/dose blistr powdr for inhalation (Advair Diskus) gabapentin 100 mg capsule 300 mg PO DAILY 05/27/22 12/24/22 lancets (Accu-Chek Fastclix Lancet 05/27/22 12/24/22 Drum) levothyroxine 100 mcg tablet 100 mcg PO DAILY 05/27/22 12/24/22 loratadine 10 mg tablet (Allergy 10 mg PO DAILY 05/27/22 12/24/22 Relief (loratadine)) olanzapine 15 mg tablet 15 mg PO HS 05/27/22 12/24/22 olanzapine 5 mg tablet 5 mg PO Q4H PRN 05/27/22 12/24/22 tramadol 50 mg tablet 50 mg PO BID PRN 05/27/22 12/24/22 melatonin 5 mg capsule 5 mg PO HS PRN 06/14/22 12/24/22 montelukast 10 mg tablet 10 mg PO HS 06/14/22 12/24/22 pantoprazole 40 mg tablet,delayed 40 mg PO DAILY 06/14/22 12/24/22 release sucralfate 1 gram tablet 1 g PO BID 06/14/22 12/24/22 urea 20 % topical cream 1 applic topical DAILY 06/14/22 12/24/22 calcitriol 0.25 mcg capsule 0.25 mcg PO DAILY 08/16/22 12/24/22 glycerin (adult) (Fleet Glycerin 1 supp [place] DAILY PRN 08/16/22 12/24/22 (Adult) rectal suppository) propranolol 60 mg tablet 60 mg PO TID 08/16/22 12/24/22 trazodone 150 mg tablet 150 mg PO HS 08/16/22 12/24/22 albuterol sulfate 90 mcg/actuation 1 inh inhalation Q4H PRN 09/20/22 12/24/22 aerosol inhaler (Ventolin HFA) emollient (Vanicream topical) 1 applic topical Q6H PRN 09/20/22 12/24/22 hyoscyamine sulfate 0.125 mg 0.125 mg PO Q4-6H PRN 09/20/22 12/24/22 tablet (Levsin) polyethylene glycol 3350 17 17 g PO BID PRN 09/20/22 12/24/22 gram/dose oral powder (Gavilax) umeclidinium 62.5 mcg/actuation 1 inh inhalation DAILY 09/20/22 12/24/22 blister powder for inhalation (Incruse Ellipta) albuterol sulfate 2.5 mg/3 mL 2.5 mg inhalation Q4H PRN 10/08/22 12/24/22 (0.083 %) solution for nebulization sennosides 8.6 mg-docusate sodium 1 tab-cap PO BID 10/08/22 12/24/22 50 mg tablet (Senexon-S) icosapent ethyl 1 gram capsule 1 g PO BID 12/10/22 12/24/22 (Vascepa) triamcinolone acetonide 0.1 % 1 applic topical QDAY PRN chest 12/10/22 12/24/22 topical cream scars clozapine 50 mg tablet 125 mg BID 01/21/23 Previous Rx's Medication Instructions Recorded ciprofloxacin HCl 0.3 % eye drops See Rx Instructions ophthalmic 12/24/22 (eye) .COMPLEX #10 mL Allergies Allergy/AdvReac Type Severity Reaction Status Date / Time ziprasidone [From Geodon] Allergy Severe Anaphylaxis Verified 12/24/22 10:34 amoxicillin Allergy Intermediate Hives Verified 12/24/22 10:34 Penicillins Allergy Intermediate Hives Verified 12/24/22 10:34 amantadine [From Symmetrel] AdvReac Intermediate sedation Verified 12/24/22 10:34 [place] Allergy Severe renal Uncoded 12/24/22 10:34 failure Pineapple Allergy Intermediate Hives Uncoded 12/24/22 10:34 NSAID AdvReac Intermediate kidney Uncoded 12/24/22 10:34 disease Review of Systems Status of ROS: Reports: 10 or more systems reviewed and unremarkable except as noted in History and below Narrative: Constitutional: No fevers, no weight gain or loss. Eyes: No discharge. No vision changes. HENT: No congestion, no sore throat, no ear pain. Cardiovascular: No chest pain, no palpitations. Respiratory: She reports a cough and some shortness of breath. Gastrointestinal: No abdominal pain, no vomiting, no diarrhea. Genitourinary: No dysuria, no hematuria. Musculoskeletal: Normal range of motion. Skin: No rashes, no pruritis. Neurological: No dizziness, weakness, sensory change, speech change. Endo/Heme/Allergies: No bruising or bleeding. No polydipsia. Pysch: no suicidality, no anxiety, no insomnia. All other systems reviewed and are negative. [facility] Medical History ADHD Allergic rhinitis due to pollen Anxiety Asthma Autism Bipolar disorder Borderline intellectual functioning Chronic kidney disease, stage IV (severe) Conjunctivitis GERD (gastroesophageal reflux disease) History of reactive attachment disorder Hypercoagulopathy Hyperlipidemia Hyperparathyroidism due to renal insufficiency IgA deficiency Intermittent explosive disorder Kidney disease Mild cognitive impairment Mild intellectual disability Mood disorder Morbid obesity with BMI of 45.0-49.9, adult Oppositional defiant disorder DEBRA (obstructive sleep apnea) Pervasive developmental disorder PTSD (post-traumatic stress disorder) Pulmonary emboli Renal failure Suicidal ideation Suicide attempt Type 2 diabetes mellitus Surgical History History of appendectomy History of tonsillectomy and adenoidectomy Social History Smoking Status: Never smoker Do you use any of these nicotine containing products: None Second hand tobacco smoke exposure: No How often do you have a drink containing alcohol: never AUDIT-C Alcohol total score: 0 Non-prescribed substance use: denies use service: No Exam Narrative: Exam Narrative: Constitutional: Well-developed, well-nourished, no acute distress. HEENT: Normocephalic, atraumatic. Neck: Normal range of motion. Nontender. Supple. Heart: Regular. No murmurs. Normal rate. Intact distal pulses. Lungs: Breath sounds seem decreased on the right compared to left. No chest discomfort. No wheezes, rhonchi, or rales. Abdomen: Normal bowel sounds. Nontender. No rebound tenderness. Genitalia: Deferred. Back: No midline tenderness. Normal range of motion. Extremities: Normal range of motion. No injury. Skin: Intact. No rash. Warm. No erythema or pallor. Neurologic: No altered sensation. No weakness. Alert and oriented. Psychiatric: No suicidality. No anxiety or depression. No insomnia. Nursing notes and vitals signs are reviewed. Const: Vital Signs, click to edit/add: Vital Signs - 24 hr 01/21/23 13:05 Temperature 97.6 F Pulse Rate [Right Pulse Oximeter] 85 Respiratory Rate 16 Blood Pressure [Le ft Upper Arm] 128/89 Pulse Oximetry 93 Oxygen Delivery Me thod Room Air Course Vital Signs Vital signs: Initial Vital Signs Temperature 97.6 F 01/21/23 13:05 Temperature Source Temporal Artery Scan 01/21/23 13:05 Pulse Rate 85 01/21/23 13:05 Pulse Rhythm 01/21/23 13:05 Respiratory Rate 16 01/21/23 13:05 Blood Pressure 128/89 01/21/23 13:05 Blood Pressure Mean 102 01/21/23 13:05 Blood Pressure Position Sitting 01/21/23 13:05 Pulse Oximetry 93 01/21/23 13:05 Oxygen Delivery Method 01/21/23 13:05 Vital Signs Temperature 97.6 F 01/21/23 13:05 Pulse Rate 85 01/21/23 13:05 Respiratory Rate 16 01/21/23 13:05 Blood Pressure 128/89 01/21/23 13:05 Pulse Oximetry 93 01/21/23 13:05 Oxygen Delivery Method 01/21/23 13:05 Temperature 97.6 F 01/21/23 13:05 Pulse Rate 85 01/21/23 13:05 Respiratory Rate 16 01/21/23 13:05 Blood Pressure 128/89 01/21/23 13:05 Pulse Oximetry 93 01/21/23 13:05 Oxygen Delivery Method 01/21/23 13:05 Medical Decision Making MDM Narrative Medical decision making narrative: This 27-year-old woman has been more lethargic in the last week or so she is sent here with concerned that she may have too much medication on board. She is taking lots of medications and did have her clozapine increased from 50 mg twice daily to 125 mg twice daily. She arrives here with some oximetry readings in the 88% area. She does have history of sleep apnea and does use CPAP at night. A chest x-ray shows no acute findings. Lab results returned with an elevated D-dimer at around 2.7 however this is not new for her. She does also have renal insufficiency with a creatinine today at 3.0. This is also a chronic condition. She has had similar findings in the past and there was concern for pulmonary embolism but given her renal function a CT scan with IV contrast should not be performed. An ultrasound of her lower extremities a couple weeks ago was negative for thrombus. She does not describe any extremity pain or swelling. It seems that her symptoms are predominantly related to this increase of clozapine. I recommended decreasing back to 100 mg twice daily. She is okay to be discharged home to continue current plans otherwise. Lab Data Labs: Lab Results 01/21/23 01/21/23 01/21/23 Range/Units 14:00 14:00 14:00 WBC (4.50-11.00) K/uL RBC (4.00-5.20) m/uL Hgb (12.0-16.0) gm/dL Hct (33.0-51.0) % MCV (80-100) fL MCH (26-34) pg MCHC (32-36) gm/dL RDW Coeff of Moshe (11.5-15.5) % Plt Count (140-440) K/uL Neut % (Auto) (42.0-72.0) % Lymph % (Auto) (20-44) % [place] % (Auto) (0.0-11.0) % Eos % (Auto) (0.0-7.0) % Baso % (Auto) (0.0-3.0) % Neut # (Auto) (1.7-7.0) K/uL Lymph # (Auto) (0.90-2.90) K/uL [place] # (Auto) (0.00-0.90) K/UL Eos # (Auto) (0.00-0.50) K/uL Baso # (Auto) (0.00-0.30) K/uL D-Dimer Quant (PE/DVT) 2.78 H (0.00-0.50) ug/ml Sodium 142 (135-149) mmol/L Potassium 5.2 H (3.6-5.1) mmol/L Chloride 105 (96-114) mmol/L Carbon Dioxide 28 (20-32) mmol/L BUN 42 H (5-24) mg/dL Creatinine 3.0 H (0.5-1.5) mg/dL Estimated Creat Clear 25.80 Estimated GFR 21 ml/min Glucose 215 H (60-115) mg/dL Calcium 9.6 (8.4-10.6) mg/dL SARS-CoV-2 (PCR) Negative SARS-CoV-2 (Negative) Influenza Type A (PCR) Negative PCR FLU A (Negative) Influenza Type B (PCR) Negative PCR FLU B (Negative) RSV (PCR) Negative PCR RSV (Negative) 01/21/23 Range/Units 14:00 WBC 8.51 (4.50-11.00) K/uL RBC 3.88 L (4.00-5.20) m/uL Hgb 11.5 L (12.0-16.0) gm/dL Hct 36.8 (33.0-51.0) % MCV 95 (80-100) fL MCH 30 (26-34) pg MCHC 31 L (32-36) gm/dL RDW Coeff of Moshe 15.6 H (11.5-15.5) % Plt Count 183 (140-440) K/uL Neut % (Auto) 68.9 (42.0-72.0) % Lymph % (Auto) 19.9 L (20-44) % [place] % (Auto) 7.9 (0.0-11.0) % Eos % (Auto) 2.7 (0.0-7.0) % Baso % (Auto) 0.2 (0.0-3.0) % Neut # (Auto) 5.87 (1.7-7.0) K/uL Lymph # (Auto) 1.70 (0.90-2.90) K/uL [place] # (Auto) 0.70 (0.00-0.90) K/UL Eos # (Auto) 0.23 (0.00-0.50) K/uL Baso # (Auto) 0.02 (0.00-0.30) K/uL D-Dimer Quant (PE/DVT) (0.00-0.50) ug/ml Sodium (135-149) mmol/L Potassium (3.6-5.1) mmol/L Chloride (96-114) mmol/L Carbon Dioxide (20-32) mmol/L BUN (5-24) mg/dL Creatinine (0.5-1.5) mg/dL Estimated Creat Clear Estimated GFR ml/min Glucose (60-115) mg/dL Calcium (8.4-10.6) mg/dL SARS-CoV-2 (PCR) (Negative) Influenza Type A (PCR) (Negative) Influenza Type B (PCR) (Negative) RSV (PCR) (Negative) Imaging Data Chest x-ray: Radiologist's impression: No evidence of acute pulmonary disease. Discharge Plan Discharge Clinical Impression: PTSD (post-traumatic stress disorder), Lethargic, Chronic kidney disease, stage IV (severe) Patient Disposition: Home w/ Parent or Adult Condition: Stable Additional Instructions: Continue current plans except decreased clozapine from 125 mg twice daily to 100 mg twice daily. If still lethargic this may be decreased further. Follow-up with primary physician or return if worsening. Prescriptions: No Action triamcinolone acetonide 0.1 % cream 1 applic topical QDAY PRN (Reason: chest scars) ciprofloxacin HCl 0.3 % drops See Rx Instructions ophthalmic (eye) .COMPLEX Qty: 10 0RF Rx Instructions: put 1-2 drps in affected eye(s) every 2hr up to 8 times/day x2days; then 4 times/day x5days ophthalmic (eye) albuterol sulfate [Ventolin HFA] 90 mcg/actuation HFA aerosol inhaler 1 inh inhalation Q4H PRN emollient [Vanicream] Cream 1 applic topical Q6H PRN polyethylene glycol 3350 [Gavilax] 17 gram/dose powder 17 g PO BID PRN Incruse Ellipta 62.5 mcg/actuation blister with device 1 inh INHALATION DAILY hyoscyamine sulfate [Levsin] 0.125 mg tablet 0.125 mg PO Q4-6H PRN Rx Instructions: 1-2tabs prn icosapent ethyl [Vascepa] 1 gram capsule 1 g PO BID sennosides-docusate sodium [Senexon-S] 8.6-50 mg tablet 1 tab-cap PO BID albuterol sulfate 2.5 mg /3 mL (0.083 %) solution for nebulization 2.5 mg inhalation Q4H PRN atorvastatin 40 mg tablet 40 mg PO DAILY olanzapine 5 mg tablet 5 mg PO Q4H PRN Label Comments: am (DME) Accu-Chek Guide test strips Strip MISCELLANEOUS Label Comments: USE TO TEST TWICE DAILY tramadol 50 mg tablet 50 mg PO BID PRN acetaminophen 500 mg tablet 500 mg PO BID PRN levothyroxine 100 mcg tablet 100 mcg PO DAILY (DME) lancets [Accu-Chek Fastclix Lancet Drum] Misc MISCELLANEOUS Label Comments: USE DIRECTED amlodipine 10 mg tablet 10 mg PO DAILY divalproex 500 mg tablet extended release 24 hr 1,000 mg PO BID calcium carbonate [Calcium Antacid] 200 mg calcium (500 mg) tablet,chewable 500 mg PO BID PRN fluoxetine 10 mg capsule 30 mg PO DAILY olanzapine 15 mg tablet 15 mg PO HS gabapentin 100 mg capsule 300 mg PO DAILY epinephrine 0.3 mg/0.3 mL auto-injector 0.3 mg IM DAILY PRN fluticasone propion-salmeterol [Advair Diskus] 100-50 mcg/dose blister with device 1 inh INHALATION Q12H albuterol sulfate 90 mcg/actuation HFA aerosol inhaler 1 - 2 puff INHALATION TID PRN loratadine [Allergy Relief (loratadine)] 10 mg tablet 10 mg PO DAILY cholecalciferol (vitamin D3) 25 mcg (1,000 unit) capsule 25 mcg PO DAILY cyclobenzaprine 5 mg tablet 5 mg PO Q8H PRN Trulicity 1.5 mg/0.5 mL pen injector 1.5 mg SUBCUT QWEEK pantoprazole 40 mg tablet,delayed release (DR/EC) 40 mg PO DAILY sucralfate 1 gram tablet 1 g PO BID urea 20 % cream 1 applic TOPICAL DAILY montelukast 10 mg tablet 10 mg PO HS melatonin 5 mg capsule 5 mg PO HS PRN calcitriol 0.25 mcg capsule 0.25 mcg PO DAILY glycerin (adult) [Fleet Glycerin (Adult)] Suppository 1 supp [place] DAILY PRN propranolol 60 mg tablet 60 mg PO TID Label Comments: hold if pulse is below 65 trazodone 150 mg tablet 150 mg PO HS clozapine 50 mg tablet 125 mg BID Follow Up/Referrals: Provider,Not a Local [Primary Care Provider] - Stand Alone Forms: [facility] Info Instructions
[2023-01-21 14:08] LABS: Basophils Absolute Auto 0.02 K/uL (0.00-0.30); Basophils Percent Auto 0.2 % (0.0-3.0); Eosinophils Absolute Auto 0.23 K/uL (0.00-0.50); Eosinophils Percent Auto 2.7 % (0.0-7.0); Hematocrit 36.8 % (33.0-51.0); Hemoglobin* 11.5 gm/dL (12.0-16.0); Immature Granulocytes Abs Auto 0.03 K/uL (0.00-0.30); Immature Granulocytes Pct Auto 0.4 %; Lymphocytes Percent Auto 19.9 % (20-44); Mean Corpuscular HGB Conc 31 gm/dL (32-36); Mean Corpuscular Hemoglobin 30 pg (26-34); Mean Corpuscular Volume 95 fL (80-100); Monocytes Percent Auto 7.9 % (0.0-11.0); Neutrophils Absolute Auto 5.87 K/uL (1.7-7.0); Neutrophils Percent Auto 68.9 % (42.0-72.0); Platelet Count* 183 K/uL (140-440); RDW Coefficient of Variation % 15.6 % (11.5-15.5); Red Blood Count 3.88 m/uL (4.00-5.20); White Blood Count* 8.51 K/uL (4.50-11.00)
[2023-01-21 14:09] LABS: Slide Review Reflex No
[2023-01-21 14:25] LABS: Chloride* 105 mmol/L (96-114); Potassium* 5.2 mmol/L (3.6-5.1); Sodium* 142 mmol/L (135-149)
[2023-01-21 14:28] LABS: Carbon Dioxide* 28 mmol/L (20-32); Estimated Glomerular Filt Rate 21 ml/min
[2023-01-21 14:29] LABS: Blood Urea Nitrogen* 42 mg/dL (5-24); Calcium* 9.6 mg/dL (8.4-10.6); Glucose* 215 mg/dL (60-115)
[2023-01-21 14:47] LABS: D Dimer Quantitative* 2.78 ug/ml (0.00-0.50)
[2023-01-21 15:00] LABS: PCR FLU A Negative PCR FLU A (Negative); PCR FLU B Negative PCR FLU B (Negative); PCR RSV Negative PCR RSV (Negative)
[2023-01-21 15:01] LABS: SARS PCR* Negative SARS-CoV-2 (Negative)
[2023-01-21 16:02] VITALS: BP 139/89; PULSE 78; RESP 18; O2SAT 95
== END 2023-01-21 18:09 | disposition home or self-care (01) ==
PROVIDERS: Emergency Provider Emergency Medicine Emergency Medical Services
DX: F43.10 Post-traumatic stress disorder, unspecified (principal); N18.4 Chronic kidney disease, stage 4 (severe); R53.83 Other fatigue
CPT/HCPCS: 36415; 71046; 80048; 85025; 85379; 87502; 87634; 87635; 99284

== ENCOUNTER 2023-01-26 14:58 | Outpatient (CLI) | payer MEDICARE, OTHER, SELFPAY | END 2023-01-26 14:59 | disposition home or self-care (01) | LOC: AMB 02-02 09:38 | PROVIDERS: Visit Provider Family Medicine | DX: R41.82 Altered mental status, unspecified (principal); R53.83 Other fatigue | CPT/HCPCS: A0425; A0427 ==

== ENCOUNTER 2023-01-26 15:29 | Emergency (ER) | payer MEDICARE, OTHER, SELFPAY ==
[2023-01-26] VITALS (19 sets, daily range): BP systolic 115–148; BP diastolic 79–94; PULSE 67–80; RESP 11–17; TEMP 36.2; O2SAT 90–100; BMI 51.3
--- NOTE | 2023-01-26 15:56 | ED.NURSE ---
Staff member at bedside, per Pt request.
--- NOTE | 2023-01-26 16:39 | CRLHL7_ITS ---
For Patients: As a result of the Century Cures Act, medical imaging exams and procedure reports are released immediately into your electronic medical record. You may view this report before your referring provider. If you have questions, please contact your health care provider. Indication: Fatigue Comparison: Two-view chest January 21, 2023 Technique: Single AP view chest Findings: There is mild central bronchial thickening. There is questionable developing airspace opacity with left lung base which may represent developing infiltrate. There is no pneumothorax. The cardiomediastinal silhouette is within normal limits. The bony thorax is grossly intact. Impression: Questionable mild central bronchial thickening and minimal airspace opacity in the left lung base which may represent developing infiltrates. Correlate with history of clinical symptoms. Dictated by Sandeep Khan MD @ 01/26/2023 5:28:51 PM (Electronically Signed)
--- NOTE | 2023-01-26 16:42 | ED.WEAKNESS ---
HPI - Weakness General Chief complaint: Weakness Stated complaint: Weakness Time Seen by Provider: 01/26/23 16:21 History of Present Illness HPI Narrative: 27-year-old young woman presenting to the emergency department accompanied by staff. She is a resident of a local [facility]. Concern is of fatigue. Does have a history of morbid obesity, [place], sleep apnea, hyperparathyroid, chronic kidney disease. I note her to be rather congested in the nasopharynx-she is noted to have chronic sinus troubles. Was seen by me for recent pleuritic chest pain with chronically elevated D-dimer and negative lower extremity ultrasound. Seen about 5 days ago in this department for fatigue. Had been recently decreased in her clozapine dosing and evening trazodone dose. Staff notes that she is not really awake for more than an hour a day. Their concern for having her walk too far on her own. She is not focally weak. No visual disturbance. I ask Elisa why she is here and she says she feels nauseated just has not been able to eat much lately. There is an underlying history of diabetes as well. She does have abdominal discomfort and some mid chest pain. Also has a headache. She does alert quickly to help with exam and then drifts quickly often to near sleep state. Apparently alternates between hot and cold all the time. No known fever. Has extensive medication list. Staff notes decreased ?collar setter overlock? for some months maybe now. That she has the ?dropsies?. No cough no fever noted. Related Data Home Medications Medication Instructions Recorded Confirmed acetaminophen 500 mg tablet 500 mg PO BID PRN 05/27/22 01/26/23 albuterol sulfate 90 mcg/actuation 1 - 2 puff inhalation TID PRN 05/27/22 12/24/22 aerosol inhaler amlodipine 10 mg tablet 10 mg PO DAILY 05/27/22 01/26/23 atorvastatin 40 mg tablet 40 mg PO DAILY 05/27/22 01/26/23 blood sugar diagnostic (Accu-Chek 05/27/22 12/24/22 Guide test strips) calcium carbonate 200 mg calcium 500 mg PO BID PRN 05/27/22 12/24/22 (500 mg) chewable tablet (Calcium Antacid) cholecalciferol (vitamin D3) 25 25 mcg PO DAILY 05/27/22 01/26/23 mcg (1,000 unit) capsule cyclobenzaprine 5 mg tablet 5 mg PO Q8H PRN 05/27/22 12/24/22 divalproex 500 mg tablet,extended 1,000 mg PO BID 05/27/22 12/24/22 release 24 hr dulaglutide 1.5 mg/0.5 mL 1.5 mg subcut QWEEK 05/27/22 01/26/23 subcutaneous pen injector (Trulicity) epinephrine 0.3 mg/0.3 mL 0.3 mg IM DAILY PRN 05/27/22 12/24/22 injection, auto-injector fluoxetine 10 mg capsule 30 mg PO DAILY 05/27/22 12/24/22 fluticasone 100 mcg-salmeterol 50 1 inh inhalation Q12H 05/27/22 12/24/22 mcg/dose blistr powdr for inhalation (Advair Diskus) gabapentin 100 mg capsule 300 mg PO DAILY 05/27/22 12/24/22 lancets (Accu-Chek Fastclix Lancet 05/27/22 12/24/22 Drum) levothyroxine 100 mcg tablet 100 mcg PO DAILY 05/27/22 01/26/23 loratadine 10 mg tablet (Allergy 10 mg PO DAILY 05/27/22 01/26/23 Relief (loratadine)) olanzapine 15 mg tablet 15 mg PO HS 05/27/22 12/24/22 olanzapine 5 mg tablet 5 mg PO Q4H PRN 05/27/22 12/24/22 tramadol 50 mg tablet 50 mg PO BID PRN 05/27/22 12/24/22 melatonin 5 mg capsule 5 mg PO HS PRN 06/14/22 12/24/22 montelukast 10 mg tablet 10 mg PO HS 06/14/22 12/24/22 pantoprazole 40 mg tablet,delayed 40 mg PO DAILY 06/14/22 01/26/23 release sucralfate 1 gram tablet 1 g PO BID 06/14/22 01/26/23 urea 20 % topical cream 1 applic topical DAILY 06/14/22 12/24/22 calcitriol 0.25 mcg capsule 0.25 mcg PO DAILY 08/16/22 12/24/22 glycerin (adult) (Fleet Glycerin 1 supp [place] DAILY PRN 08/16/22 12/24/22 (Adult) rectal suppository) propranolol 60 mg tablet 60 mg PO TID 08/16/22 12/24/22 trazodone 150 mg tablet 150 mg PO HS 08/16/22 12/24/22 albuterol sulfate 90 mcg/actuation 1 inh inhalation Q4H PRN 09/20/22 12/24/22 aerosol inhaler (Ventolin HFA) emollient (Vanicream topical) 1 applic topical Q6H PRN 09/20/22 12/24/22 hyoscyamine sulfate 0.125 mg 0.125 mg PO Q4-6H PRN 09/20/22 12/24/22 tablet (Levsin) polyethylene glycol 3350 17 17 g PO BID PRN 09/20/22 12/24/22 gram/dose oral powder (Gavilax) umeclidinium 62.5 mcg/actuation 1 inh inhalation DAILY 09/20/22 12/24/22 blister powder for inhalation (Incruse Ellipta) albuterol sulfate 2.5 mg/3 mL 2.5 mg inhalation Q4H PRN 10/08/22 12/24/22 (0.083 %) solution for nebulization sennosides 8.6 mg-docusate sodium 1 tab-cap PO BID 10/08/22 01/26/23 50 mg tablet (Senexon-S) icosapent ethyl 1 gram capsule 1 g PO BID 12/10/22 01/26/23 (Vascepa) triamcinolone acetonide 0.1 % 1 applic topical QDAY PRN chest 12/10/22 12/24/22 topical cream scars clozapine 50 mg tablet 125 mg BID 01/21/23 clozapine 100 mg tablet 100 mg PO BID 01/26/23 01/26/23 divalproex 500 mg tablet,extended 1,000 mg PO BID 01/26/23 01/26/23 release 24 hr fluticasone 100 mcg-salmeterol 50 1 inh inhalation BID 01/26/23 01/26/23 mcg/dose blistr powdr for inhalation (Advair Diskus) gabapentin 300 mg capsule 300 mg PO Q12H 01/26/23 01/26/23 incruse elpt 12XD 01/26/23 montelukast 10 mg tablet 10 mg PO QHS 01/26/23 01/26/23 (Singulair) propranolol 40 mg tablet 60 mg PO Q8H 01/26/23 01/26/23 trazodone 100 mg tablet 100 mg PO HS 01/26/23 01/26/23 Previous Rx's Medication Instructions Recorded ciprofloxacin HCl 0.3 % eye drops See Rx Instructions ophthalmic 12/24/22 (eye) .COMPLEX #10 mL Allergies Allergy/AdvReac Type Severity Reaction Status Date / Time ziprasidone [From Geodon] Allergy Severe Anaphylaxis Verified 01/26/23 16:04 amoxicillin Allergy Intermediate Hives Verified 01/26/23 16:04 Penicillins Allergy Intermediate Hives Verified 01/26/23 16:04 amantadine [From Symmetrel] AdvReac Intermediate sedation Verified 01/26/23 16:04 [place] Allergy Severe renal Uncoded 12/24/22 10:34 failure [place] Allergy Intermediate Hives Uncoded 12/24/22 10:34 NSAID AdvReac Intermediate kidney Uncoded 12/24/22 10:34 disease Review of Systems Status of ROS: Reports: 10 or more systems reviewed and unremarkable except as noted in History and below [facility] Medical History ADHD Allergic rhinitis due to pollen Anxiety Asthma Autism Bipolar disorder Borderline intellectual functioning Chronic kidney disease, stage IV (severe) Conjunctivitis GERD (gastroesophageal reflux disease) History of reactive attachment disorder Hypercoagulopathy Hyperlipidemia Hyperparathyroidism due to renal insufficiency IgA deficiency Intermittent explosive disorder Kidney disease Mild cognitive impairment Mild intellectual disability Mood disorder Morbid obesity with BMI of 45.0-49.9, adult Oppositional defiant disorder DEBRA (obstructive sleep apnea) Pervasive developmental disorder PTSD (post-traumatic stress disorder) Pulmonary emboli Renal failure Suicidal ideation Suicide attempt Type 2 diabetes mellitus Surgical History History of appendectomy History of tonsillectomy and adenoidectomy Social History Smoking Status: Never smoker Do you use any of these nicotine containing products: None Second hand tobacco smoke exposure: No How often do you have a drink containing alcohol: never AUDIT-C Alcohol total score: 0 Non-prescribed substance use: denies use service: No Exam Narrative: Exam Narrative: Calm. NAD. Sleepy. Congested breathing from the nasopharynx. Has been placed on 1 L of oxygen putting her above 95%. Again rather sleepy but does awake to briefly help with exam. She appears to have good strength throughout. Oropharynx is moist. Cranial nerves 2-12 look to be intact. Wonder if there might be nystagmus bilaterally. No facial swelling or tenderness. No erythema here. Head looks to be atraumatic. Lungs are clear. Equal expansion. Heart in a regular rhythm. Regular rate. Abdomen is obese soft inconsistently mildly tender in the epigastrium. Unable to palpate with any reliability otherwise but does not appear to have pain or masses elsewhere. Strong and equal collar setter overlock strength. Alerts and cooperates quickly with this. Lower extremities with dependent lower extremity edema. Good strength here as well. She appears well perfused peripherally. Again just quite fatigued. Const: Vital Signs, click to edit/add: Vital Signs - 24 hr 01/26/23 15:47 01/26/23 16:39 01/26/23 15:41 Temperature 97.1 F L Pulse Rate 75 Pulse Rate [Left P ulse Oximeter] 74 Respiratory Rate 16 13 Blood Pressure 118/94 H Blood Pressure [Le ft Upper Arm] 118/94 H Pulse Oximetry 95 97 97 Oxygen Delivery Me thod Nasal Cannula Nasal Cannula Oxygen Flow Rate 1 01/26/23 15:42 01/26/23 16:00 01/26/23 16:02 Temperature Pulse Rate 74 74 76 Pulse Rate [Left P ulse Oximeter] Respiratory Rate 11 L 12 16 Blood Pressure 124/84 Blood Pressure [Le ft Upper Arm] Pulse Oximetry 99 98 100 Oxygen Delivery Me thod Oxygen Flow Rate 01/26/23 16:30 01/26/23 16:32 01/26/23 18:45 Temperature Pulse Rate 78 78 74 Pulse Rate [Left P ulse Oximeter] Respiratory Rate 16 17 Blood Pressure 129/81 Blood Pressure [Le ft Upper Arm] Pulse Oximetry 97 98 91 Oxygen Delivery Me thod Oxygen Flow Rate 01/26/23 18:47 01/26/23 19:00 01/26/23 19:02 Temperature Pulse Rate 73 67 68 Pulse Rate [Left P ulse Oximeter] Respiratory Rate Blood Pressure 139/81 148/82 H Blood Pressure [Le ft Upper Arm] Pulse Oximetry 92 96 96 Oxygen Delivery Me thod Oxygen Flow Rate 01/26/23 19:30 01/26/23 19:33 01/26/23 15:42 Temperature Pulse Rate 69 70 Pulse Rate [Left P ulse Oximeter] Respiratory Rate Blood Pressure 139/87 Blood Pressure [Le ft Upper Arm] Pulse Oximetry 93 94 96 Oxygen Delivery Me thod Nasal Cannula Oxygen Flow Rate 1 01/26/23 19:34 01/26/23 20:00 01/26/23 20:03 Temperature Pulse Rate 68 80 77 Pulse Rate [Left P ulse Oximeter] Respiratory Rate Blood Pressure 115/79 Blood Pressure [Le ft Upper Arm] Pulse Oximetry 91 90 90 Oxygen Delivery Me thod Room Air Oxygen Flow Rate 01/26/23 20:30 01/26/23 21:57 Temperature 97.1 F L Pulse Rate 79 Pulse Rate [Left P ulse Oximeter] 74 Respiratory Rate 17 Blood Pressure Blood Pressure [Le ft Upper Arm] 118/94 H Pulse Oximetry 92 Oxygen Delivery Me thod Oxygen Flow Rate Documenting provider has reviewed patient's vital signs: yes Course Vital Signs Vital signs: Initial Vital Signs Pulse Rate 75 01/26/23 15:41 Respiratory Rate 13 01/26/23 15:41 Blood Pressure 118/94 H 01/26/23 15:41 Blood Pressure Mean 102 01/26/23 15:41 Pulse Oximetry 97 01/26/23 15:41 Oxygen Delivery Method 01/26/23 15:41 Oxygen Flow Rate 1 01/26/23 15:41 Vital Signs Pulse Rate 75 01/26/23 15:41 Respiratory Rate 13 01/26/23 15:41 Blood Pressure 118/94 H 01/26/23 15:41 Pulse Oximetry 97 01/26/23 15:41 Oxygen Delivery Method 01/26/23 15:41 Oxygen Flow Rate 1 01/26/23 15:41 Temperature 97.1 F L 01/26/23 21:57 Pulse Rate 74 01/26/23 21:57 Respiratory Rate 17 01/26/23 21:57 Blood Pressure 118/94 H 01/26/23 21:57 Pulse Oximetry 92 01/26/23 20:30 Oxygen Delivery Method 01/26/23 19:34 Oxygen Flow Rate 1 01/26/23 15:42 MDM - Weakness MDM Narrative Medical decision making narrative: Does have some degree of chronic hypoxia. This is due to weight I think in large part. There is apparently a history of pulmonary embolus. Pneumothorax would be in differential here too as well as infectious etiology in lungs. Is certainly on extensive medications that might be contributing. Will evaluate liver function renal function looking for comparison to baseline. Ammonia level. Venous blood gases. Perhaps is also time to reimage her head. Vitamin levels being off could contribute as well considering what might be some discoordination described, though this might certainly be related to sleepiness. Venous blood gases actually look quite good. Did alert to eat and drink during time in the emergency department. Monitored off oxygen around her baseline oxygen saturation. Chest x-ray with some perihilar fullness by my read. Comparison to prior as noted by Radiology there might be some increasing infiltrative process in the left lower lung. I am not convinced that this represents marked pulmonary disease or the reason for general sedation. I did review images. Radiology over-read noted CT head most remarkable for extensive right-sided sinus disease. --------Complete opacification the right-sided frontal sinus, ethmoid air cells sphenoid sinus maxillary sinus and nasal cavity by higher density material. Consider polyps and/or inspissated secretions. Osteitis of the right-sided sinus linn. Slightly progressed since prior. Normal soft tissues Overall is been stable and I think safe to depart home. Labs generally reassuring or at least at baseline. Creatinine is still above 3 CRP mildly elevated at 1.6. Is not hypoglycemic. TSH normal. Depakote level still pending. Did review extensive list of medications. Many are sedating. Elisa was actually asking for evening sleep meds though is falling asleep as were talking with her. I discussed, recommended only taking p.r.n. sleep medications if really needed. Since trazodone also is prescribed for sleep I am not sure that that needs to be prescribed regularly and can be changed to p.r.n.. Did discuss this case with the hospitalist as well. Reviewed medications/ interactions in the setting of this renal function as well. Medical Records Attestation: I reviewed the patient's medical records. Lab Data Attestation: I reviewed the patient's lab results. Labs: Lab Results 01/26/23 01/26/23 01/26/23 Range/Units 16:50 17:00 17:52 WBC 6.22 (4.50-11.00) K/uL RBC 4.04 (4.00-5.20) m/uL Hgb 11.9 L (12.0-16.0) gm/dL Hct 39.9 (33.0-51.0) % MCV 99 (80-100) fL MCH 30 (26-34) pg MCHC 30 L (32-36) gm/dL RDW Coeff of Moshe 15.1 (11.5-15.5) % Plt Count 148 (140-440) K/uL Neut % (Auto) 50.4 (42.0-72.0) % Lymph % (Auto) 34.9 (20-44) % [place] % (Auto) 10.3 (0.0-11.0) % Eos % (Auto) 2.6 (0.0-7.0) % Baso % (Auto) 0.5 (0.0-3.0) % Neut # (Auto) 3.14 (1.7-7.0) K/uL Lymph # (Auto) 2.17 (0.90-2.90) K/uL [place] # (Auto) 0.60 (0.00-0.90) K/UL Eos # (Auto) 0.16 (0.00-0.50) K/uL Baso # (Auto) 0.03 (0.00-0.30) K/uL VBG pH (7.32-7.43) VBG pCO2 (40-50) mmHG VBG pO2 (25-47) mmHG VBG HCO3 (21-28) mmol/L Sodium (135-149) mmol/L Potassium (3.6-5.1) mmol/L Chloride (96-114) mmol/L Carbon Dioxide (20-32) mmol/L BUN (5-24) mg/dL Creatinine (0.5-1.5) mg/dL Estimated Creat Clear Estimated GFR ml/min Glucose (60-115) mg/dL Calcium (8.4-10.6) mg/dL Magnesium (1.5-2.6) mg/dL Total Bilirubin (0.1-1.5) mg/dL Direct Bilirubin (0.0-0.5) mg/dL AST (12-35) U/L ALT (4-35) U/L Alkaline Phosphatase (40-150) U/L Ammonia (13.1-30.0) umol/L C-Reactive Protein (0.5-1.0) mg/dL NT-Pro-B Natriuret Pep pg/mL Total Protein (6.0-8.3) g/dL Albumin (3.3-5.0) g/dL TSH (0.270-4.20) uIU/mL HCG, Qual Negative (Negative) Urine Color Yellow (Yellow) Urine Appearance Clear (Clear) Urine pH 6.0 (5.0-8.5) Ur Specific [place] <= 1.005 (1.000-1.030) Urine Protein 1+ A (Negative) Urine Glucose (UA) Negative (Negative) Urine Ketones Negative (Negative) Urine Blood Trace-intact A (Negative) Urine Nitrite Negative (Negative) Urine Bilirubin Negative (Negative) Urine Urobilinogen 0.2 (0.2-1.0) Ur Leukocyte Esterase Negative (Negative) Urine RBC 0-2 (0-2) Urine WBC 0-2 (0-5) Ur Squamous Epith Cells None (None-Few) Urine Bacteria None (None) Urine Opiates Screen (Negative) Ur Oxycodone Screen (Negative) Urine Methadone Screen (Negative) Ur Propoxyphene Screen (Negative) Acetaminophen (10.0-30.0) ug/mL Ur Barbiturates Screen (Negative) U Tricyclic Antidepress (Negative) Ur Phencyclidine Scrn (Negative) Ur Amphetamines Screen (Negative) U Methamphetamines Scrn (Negative) U Benzodiazepines Scrn (Negative) Urine Cocaine Screen (Negative) U Marijuana (THC) Screen (Negative) Ur Drug Screen Comment Ethyl Alcohol (0.01-0.03) % SARS-CoV-2 (PCR) Negative SARS-CoV-2 (Negative) Influenza Type A (PCR) Negative PCR FLU A (Negative) Influenza Type B (PCR) Negative PCR FLU B (Negative) 01/26/23 01/26/23 01/26/23 Range/Units 18:11 18:11 18:11 WBC (4.50-11.00) K/uL RBC (4.00-5.20) m/uL Hgb (12.0-16.0) gm/dL Hct (33.0-51.0) % MCV (80-100) fL MCH (26-34) pg MCHC (32-36) gm/dL RDW Coeff of Moshe (11.5-15.5) % Plt Count (140-440) K/uL Neut % (Auto) (42.0-72.0) % Lymph % (Auto) (20-44) % [place] % (Auto) (0.0-11.0) % Eos % (Auto) (0.0-7.0) % Baso % (Auto) (0.0-3.0) % Neut # (Auto) (1.7-7.0) K/uL Lymph # (Auto) (0.90-2.90) K/uL [place] # (Auto) (0.00-0.90) K/UL Eos # (Auto) (0.00-0.50) K/uL Baso # (Auto) (0.00-0.30) K/uL VBG pH (7.32-7.43) VBG pCO2 (40-50) mmHG VBG pO2 (25-47) mmHG VBG HCO3 (21-28) mmol/L Sodium 142 (135-149) mmol/L Potassium 4.7 (3.6-5.1) mmol/L Chloride 107 (96-114) mmol/L Carbon Dioxide 29 (20-32) mmol/L BUN 37 H (5-24) mg/dL Creatinine 3.2 H (0.5-1.5) mg/dL Estimated Creat Clear 24.18 Estimated GFR 20 ml/min Glucose 137 H (60-115) mg/dL Calcium 9.4 (8.4-10.6) mg/dL Magnesium 2.1 (1.5-2.6) mg/dL Total Bilirubin 0.5 (0.1-1.5) mg/dL Direct Bilirubin 0.5 (0.0-0.5) mg/dL AST 34 (12-35) U/L ALT 26 (4-35) U/L Alkaline Phosphatase 66 (40-150) U/L Ammonia 19.0 (13.1-30.0) umol/L C-Reactive Protein 1.6 H (0.5-1.0) mg/dL NT-Pro-B Natriuret Pep 244 pg/mL Total Protein 8.3 (6.0-8.3) g/dL Albumin 4.1 (3.3-5.0) g/dL TSH (0.270-4.20) uIU/mL HCG, Qual (Negative) Urine Color (Yellow) Urine Appearance (Clear) Urine pH (5.0-8.5) Ur Specific [place] (1.000-1.030) Urine Protein (Negative) Urine Glucose (UA) (Negative) Urine Ketones (Negative) Urine Blood (Negative) Urine Nitrite (Negative) Urine Bilirubin (Negative) Urine Urobilinogen (0.2-1.0) Ur Leukocyte Esterase (Negative) Urine RBC (0-2) Urine WBC (0-5) Ur Squamous Epith Cells (None-Few) Urine Bacteria (None) Urine Opiates Screen (Negative) Ur Oxycodone Screen (Negative) Urine Methadone Screen (Negative) Ur Propoxyphene Screen (Negative) Acetaminophen < 10.0 L (10.0-30.0) ug/mL Ur Barbiturates Screen (Negative) U Tricyclic Antidepress (Negative) Ur Phencyclidine Scrn (Negative) Ur Amphetamines Screen (Negative) U Methamphetamines Scrn (Negative) U Benzodiazepines Scrn (Negative) Urine Cocaine Screen (Negative) U Marijuana (THC) Screen (Negative) Ur Drug Screen Comment Ethyl Alcohol < 0.01 L (0.01-0.03) % SARS-CoV-2 (PCR) (Negative) Influenza Type A (PCR) (Negative) Influenza Type B (PCR) (Negative) 01/26/23 01/26/23 01/26/23 Range/Units 18:11 18:11 19:05 WBC (4.50-11.00) K/uL RBC (4.00-5.20) m/uL Hgb (12.0-16.0) gm/dL Hct (33.0-51.0) % MCV (80-100) fL MCH (26-34) pg MCHC (32-36) gm/dL RDW Coeff of Moshe (11.5-15.5) % Plt Count (140-440) K/uL Neut % (Auto) (42.0-72.0) % Lymph % (Auto) (20-44) % [place] % (Auto) (0.0-11.0) % Eos % (Auto) (0.0-7.0) % Baso % (Auto) (0.0-3.0) % Neut # (Auto) (1.7-7.0) K/uL Lymph # (Auto) (0.90-2.90) K/uL [place] # (Auto) (0.00-0.90) K/UL Eos # (Auto) (0.00-0.50) K/uL Baso # (Auto) (0.00-0.30) K/uL VBG pH 7.344 (7.32-7.43) VBG pCO2 55 H (40-50) mmHG VBG pO2 62.1 H (25-47) mmHG VBG HCO3 30 H (21-28) mmol/L Sodium (135-149) mmol/L Potassium (3.6-5.1) mmol/L Chloride (96-114) mmol/L Carbon Dioxide (20-32) mmol/L BUN (5-24) mg/dL Creatinine (0.5-1.5) mg/dL Estimated Creat Clear Estimated GFR ml/min Glucose (60-115) mg/dL Calcium (8.4-10.6) mg/dL Magnesium (1.5-2.6) mg/dL Total Bilirubin (0.1-1.5) mg/dL Direct Bilirubin (0.0-0.5) mg/dL AST (12-35) U/L ALT (4-35) U/L Alkaline Phosphatase (40-150) U/L Ammonia (13.1-30.0) umol/L C-Reactive Protein (0.5-1.0) mg/dL NT-Pro-B Natriuret Pep pg/mL Total Protein (6.0-8.3) g/dL Albumin (3.3-5.0) g/dL TSH 2.170 (0.270-4.20) uIU/mL HCG, Qual (Negative) Urine Color (Yellow) Urine Appearance (Clear) Urine pH (5.0-8.5) Ur Specific [place] (1.000-1.030) Urine Protein (Negative) Urine Glucose (UA) (Negative) Urine Ketones (Negative) Urine Blood (Negative) Urine Nitrite (Negative) Urine Bilirubin (Negative) Urine Urobilinogen (0.2-1.0) Ur Leukocyte Esterase (Negative) Urine RBC (0-2) Urine WBC (0-5) Ur Squamous Epith Cells (None-Few) Urine Bacteria (None) Urine Opiates Screen Negative (Negative) Ur Oxycodone Screen Negative (Negative) Urine Methadone Screen Negative (Negative) Ur Propoxyphene Screen Negative (Negative) Acetaminophen (10.0-30.0) ug/mL Ur Barbiturates Screen Negative (Negative) U Tricyclic Antidepress Negative (Negative) Ur Phencyclidine Scrn Negative (Negative) Ur Amphetamines Screen Negative (Negative) U Methamphetamines Scrn Negative (Negative) U Benzodiazepines Scrn Negative (Negative) Urine Cocaine Screen Negative (Negative) U Marijuana (THC) Screen Negative (Negative) Ur Drug Screen Comment See Note Ethyl Alcohol (0.01-0.03) % SARS-CoV-2 (PCR) (Negative) Influenza Type A (PCR) (Negative) Influenza Type B (PCR) (Negative) ECG Data Attestation: I personally reviewed and interpreted this ECG as follows: (Sinus rhythm 73) Discharge Plan Discharge Clinical Impression: Sleep apnea, Sinus disease, Excessive sleepiness, Chronic kidney disease, Cough Patient Disposition: Home w/ Parent or Adult Condition: Stable Additional Instructions: Please take copies of these labs and imaging with you. I think it would be worth returning to ENT to reassess the degree of sinus disease you have in light of sleep apnea and use of your CPAP. Your blood gases are in an okay range today. Important to continue to stay well hydrated with water. I think it is important that your primary care provider, your psychiatrist/neuro psych provider and a pharmacist talk together about your current medications. You're taking a number of medications. I have to think that these medications might still be playing a role in this degree of sedation you are experiencing, and maybe moreso in the setting of compromised kidney function. Given this degree of sedation and frequent sleep, of course recommend that only take prn's if really needed; particularly those sleep medications that you are requesting. Maybe just start with the melatonin if really needed. Depakote level is still pending. Might want to check a number of vitamin levels; particularly if experiencing more discoordination or any sensory loss. Discuss further with primary care. Do try to get outside for some fresh air and exercise daily. Watch for cough and increasing shortness of breath, fever. I did go back again and review your chest x-ray. There are some small changes that might indicate a developing pneumonia. I am prescribing doxycycline from [employer]. Prescriptions: No Action triamcinolone acetonide 0.1 % cream 1 applic topical QDAY PRN (Reason: chest scars) ciprofloxacin HCl 0.3 % drops See Rx Instructions ophthalmic (eye) .COMPLEX Qty: 10 0RF Rx Instructions: put 1-2 drps in affected eye(s) every 2hr up to 8 times/day x2days; then 4 times/day x5days ophthalmic (eye) albuterol sulfate [Ventolin HFA] 90 mcg/actuation HFA aerosol inhaler 1 inh inhalation Q4H PRN emollient [Vanicream] Cream 1 applic topical Q6H PRN polyethylene glycol 3350 [Gavilax] 17 gram/dose powder 17 g PO BID PRN Incruse Ellipta 62.5 mcg/actuation blister with device 1 inh INHALATION DAILY hyoscyamine sulfate [Levsin] 0.125 mg tablet 0.125 mg PO Q4-6H PRN Rx Instructions: 1-2tabs prn icosapent ethyl [Vascepa] 1 gram capsule 1 g PO BID sennosides-docusate sodium [Senexon-S] 8.6-50 mg tablet 1 tab-cap PO BID albuterol sulfate 2.5 mg /3 mL (0.083 %) solution for nebulization 2.5 mg inhalation Q4H PRN fluticasone propion-salmeterol [Advair Diskus] 100-50 mcg/dose blister with device 1 inh inhalation BID incruse elpt 12XD Label Comments: 1 puff BID gabapentin 300 mg capsule 300 mg PO Q12H clozapine 100 mg tablet 100 mg PO BID trazodone 100 mg tablet 100 mg PO HS propranolol 40 mg tablet 60 mg PO Q8H montelukast [Singulair] 10 mg tablet 10 mg PO QHS divalproex 500 mg tablet extended release 24 hr 1,000 mg PO BID atorvastatin 40 mg tablet 40 mg PO DAILY olanzapine 5 mg tablet 5 mg PO Q4H PRN Label Comments: am (DME) Accu-Chek Guide test strips Strip MISCELLANEOUS Label Comments: USE TO TEST TWICE DAILY tramadol 50 mg tablet 50 mg PO BID PRN acetaminophen 500 mg tablet 500 mg PO BID PRN levothyroxine 100 mcg tablet 100 mcg PO DAILY (DME) lancets [Accu-Chek Fastclix Lancet Drum] Misc MISCELLANEOUS Label Comments: USE DIRECTED amlodipine 10 mg tablet 10 mg PO DAILY divalproex 500 mg tablet extended release 24 hr 1,000 mg PO BID calcium carbonate [Calcium Antacid] 200 mg calcium (500 mg) tablet,chewable 500 mg PO BID PRN fluoxetine 10 mg capsule 30 mg PO DAILY olanzapine 15 mg tablet 15 mg PO HS gabapentin 100 mg capsule 300 mg PO DAILY epinephrine 0.3 mg/0.3 mL auto-injector 0.3 mg IM DAILY PRN fluticasone propion-salmeterol [Advair Diskus] 100-50 mcg/dose blister with device 1 inh INHALATION Q12H albuterol sulfate 90 mcg/actuation HFA aerosol inhaler 1 - 2 puff INHALATION TID PRN loratadine [Allergy Relief (loratadine)] 10 mg tablet 10 mg PO DAILY cholecalciferol (vitamin D3) 25 mcg (1,000 unit) capsule 25 mcg PO DAILY cyclobenzaprine 5 mg tablet 5 mg PO Q8H PRN Trulicity 1.5 mg/0.5 mL pen injector 1.5 mg SUBCUT QWEEK pantoprazole 40 mg tablet,delayed release (DR/EC) 40 mg PO DAILY sucralfate 1 gram tablet 1 g PO BID urea 20 % cream 1 applic TOPICAL DAILY montelukast 10 mg tablet 10 mg PO HS melatonin 5 mg capsule 5 mg PO HS PRN calcitriol 0.25 mcg capsule 0.25 mcg PO DAILY glycerin (adult) [Fleet Glycerin (Adult)] Suppository 1 supp [place] DAILY PRN propranolol 60 mg tablet 60 mg PO TID Label Comments: hold if pulse is below 65 trazodone 150 mg tablet 150 mg PO HS clozapine 50 mg tablet 125 mg BID Follow Up/Referrals: Provider,Not a Local [Primary Care Provider] - Stand Alone Forms: [employer] Info Instructions
--- NOTE | 2023-01-26 16:47 | ED.NURSE ---
Pt tolerated walking independently to BR well.
--- NOTE | 2023-01-26 16:51 | CRLHL7_ITS ---
For Patients: As a result of the Century Cures Act, medical imaging exams and procedure reports are released immediately into your electronic medical record. You may view this report before your referring provider. If you have questions, please contact your health care provider. INDICATION: Fatigue. TECHNIQUE: CT of the head without contrast. Coronal and sagittal reformats are included. COMPARISON: Head CT from 08/16/2022. FINDINGS: No CT evidence of acute cortical infarct. No loss of quintero white matter differentiation. No hyperdense vessels to suggest intracranial thrombus. No acute intracranial hemorrhage. No mass effect or midline shift. No hydrocephalus or extra-axial collections. White matter is within normal limits for age. No acute osseous abnormalities. Hyperostosis frontalis. Complete opacification the right-sided frontal sinus, ethmoid air cells sphenoid sinus maxillary sinus and nasal cavity by higher density material. Consider polyps and/or inspissated secretions. Osteitis of the right-sided sinus linn. Slightly progressed since prior. Normal soft tissues. IMPRESSION: IMPRESSION:1. No CT evidence of acute cortical infarct. No acute intracranial hemorrhage. No other acute intracranial findings. Please note that all CT scans at this facility use dose modulation, iterative reconstruction, and/or weight-based dosing when appropriate to reduce radiation dose to as low as reasonably achievable. Dictated by Eron Juarez MD @ 01/26/2023 5:37:10 PM (Electronically Signed)
[2023-01-26 17:03] LABS: Appearance Urine Clear (Clear); Bilirubin Urine Negative (Negative); Blood Urine Trace-intact (Negative); Color Urine Yellow (Yellow); Glucose Urine Negative (Negative); Ketones Urine Negative (Negative); Leukocyte Esterase Urine Negative (Negative); Nitrite Urine Negative (Negative); Protein Urine 1+ (Negative); Specific Gravity Urine <= 1.005 (1.000-1.030); Urobilinogen Urine 0.2 (0.2-1.0)
[2023-01-26 17:12] LABS: HCG Qualitative* Negative (Negative)
[2023-01-26 17:32] LABS: RBC Urine 0-2 (0-2); WBC Urine 0-2 (0-5)
[2023-01-26 17:59] LABS: Basophils Absolute Auto 0.03 K/uL (0.00-0.30); Basophils Percent Auto 0.5 % (0.0-3.0); Eosinophils Absolute Auto 0.16 K/uL (0.00-0.50); Eosinophils Percent Auto 2.6 % (0.0-7.0); Hematocrit 39.9 % (33.0-51.0); Hemoglobin* 11.9 gm/dL (12.0-16.0); Immature Granulocytes Abs Auto 0.08 K/uL (0.00-0.30); Immature Granulocytes Pct Auto 1.3 %; Lymphocytes Absolute Auto 2.17 K/uL (0.90-2.90); Lymphocytes Percent Auto 34.9 % (20-44); Mean Corpuscular HGB Conc 30 gm/dL (32-36); Mean Corpuscular Hemoglobin 30 pg (26-34); Mean Corpuscular Volume 99 fL (80-100); Monocytes Percent Auto 10.3 % (0.0-11.0); Neutrophils Absolute Auto 3.14 K/uL (1.7-7.0); Neutrophils Percent Auto 50.4 % (42.0-72.0); Platelet Count* 148 K/uL (140-440); RDW Coefficient of Variation % 15.1 % (11.5-15.5); Red Blood Count 4.04 m/uL (4.00-5.20); White Blood Count* 6.22 K/uL (4.50-11.00)
[2023-01-26 18:07] LABS: Slide Review Reflex No
[2023-01-26 18:08] LABS: SARS PCR* Negative SARS-CoV-2 (Negative)
[2023-01-26 18:30] LABS: HCO3 VBG 30 mmol/L (21-28); PCO2 VBG 55 mmHG (40-50); PO2 VBG 62.1 mmHG (25-47); pH VBG 7.344 (7.32-7.43)
[2023-01-26 18:43] LABS: PCR FLU A Negative PCR FLU A (Negative); PCR FLU B Negative PCR FLU B (Negative)
[2023-01-26 18:48] LABS: Chloride* 107 mmol/L (96-114); Sodium* 142 mmol/L (135-149)
[2023-01-26 18:49] LABS: Potassium* 4.7 mmol/L (3.6-5.1)
[2023-01-26 18:51] LABS: Creatinine* 3.2 mg/dL (0.5-1.5); Est. Creatinine Clearance* 24.18; Estimated Glomerular Filt Rate 20 ml/min
[2023-01-26 18:52] LABS: Blood Urea Nitrogen* 37 mg/dL (5-24); Calcium* 9.4 mg/dL (8.4-10.6); Carbon Dioxide* 29 mmol/L (20-32); Glucose* 137 mg/dL (60-115)
[2023-01-26 18:55] LABS: Acetaminophen* < 10.0 ug/mL (10.0-30.0); C Reactive Protein* 1.6 mg/dL (0.5-1.0); Ethanol* < 0.01 % (0.01-0.03)
[2023-01-26 19:08] LABS: Albumin* 4.1 g/dL (3.3-5.0)
[2023-01-26 19:11] LABS: Alanine Aminotransferase* 26 U/L (4-35); Alkaline Phosphatase* 66 U/L (40-150); Aspartate Amino Transferase* 34 U/L (12-35); Bilirubin Direct* 0.5 mg/dL (0.0-0.5); Bilirubin Total* 0.5 mg/dL (0.1-1.5); Magnesium* 2.1 mg/dL (1.5-2.6); Total Protein* 8.3 g/dL (6.0-8.3)
[2023-01-26 19:21] LABS: NT Pro B Type NatriureticPept* 244 pg/mL
[2023-01-26 19:21] LABS: Amphetamine Screen Urine Negative (Negative); Barbiturate Screen Urine Negative (Negative); Benzodiazepines Screen Urine Negative (Negative); Cannabinoid Screen Urine Negative (Negative); Cocaine Screen Urine Negative (Negative); Methadone Screen Urine Negative (Negative); Methamphetamines Screen Urine Negative (Negative); Opiate Screen Urine Negative (Negative); Oxycodone Screen Urine Negative (Negative); Phencyclidine Screen Urine Negative (Negative); Tricyclic Antidepressant Urine Negative (Negative)
--- NOTE | 2023-01-26 20:05 | ED.NURSE ---
Okay to eat, per Dr. Robles. [place], jello, and Sprite provided.
== END 2023-01-26 21:45 | disposition home or self-care (01) ==
PROVIDERS: Emergency Provider Family Medicine
DX: G47.30 Sleep apnea, unspecified (principal); N18.9 Chronic kidney disease, unspecified; R05.9 Cough, unspecified
CPT/HCPCS: 36415; 70450; 71045; 80048; 80076; 80143; 80164; 80165; 80306; 81001; 82077; 82140; 82803; 83735; 83880; 84443; 84703; 85025; 86140; 87631; 93005; 94761; 99284; 99285

== ENCOUNTER 2023-03-19 12:18 | Emergency (ER) | payer MEDICARE, OTHER, SELFPAY ==
[2023-03-19 12:28] VITALS: BP 124/94; PULSE 85; RESP 14; TEMP 36.3; O2SAT 92; BMI 43.5
--- NOTE | 2023-03-19 12:35 | ED_ITS ---
HPI - Fall General Time Seen by Provider: 12:35 Date Seen: 03/19/23 Chief Complaint: Fall/Minor Trauma Stated Complaint: fell, weakness Time Seen by Provider: 03/19/23 12:35 Source: patient, RN notes reviewed and old records reviewed Mode of arrival: EMS Limitations: no limitations History of Present Illness HPI Narrative: Patient is a very pleasant 28-year-old female well-known to the [facility] with a history of chronic kidney disease, morbid obesity, behavioral disorder and type 2 diabetes who comes to the emergency room after injury from a fall. Staff notes they heard a loud noise and found patient in the hallway. She has complained of hitting her head but here in the emergency room she complains mostly of left foot pain. She denies any neck pain chest pain. She has not had a cough cold or congestion. Today is her birthday. Movement worsens her pain. She has not yet had any pain medication. Related Data Home Medications Medication Instructions Recorded Confirmed acetaminophen 500 mg tablet 500 mg PO BID PRN 05/27/22 02/19/23 albuterol sulfate 90 mcg/actuation 1 - 2 puff inhalation TID PRN 05/27/22 02/19/23 aerosol inhaler amlodipine 10 mg tablet 10 mg PO DAILY 05/27/22 02/19/23 atorvastatin 40 mg tablet 40 mg PO DAILY 05/27/22 02/19/23 blood sugar diagnostic (Accu-Chek 05/27/22 02/19/23 Guide test strips) calcium carbonate 200 mg calcium 500 mg PO BID PRN 05/27/22 02/19/23 (500 mg) chewable tablet (Calcium Antacid) cholecalciferol (vitamin D3) 25 25 mcg PO DAILY 05/27/22 02/19/23 mcg (1,000 unit) capsule cyclobenzaprine 5 mg tablet 5 mg PO Q8H PRN 05/27/22 02/19/23 dulaglutide 1.5 mg/0.5 mL 1.5 mg subcut QWEEK 05/27/22 02/19/23 subcutaneous pen injector (Trulicity) epinephrine 0.3 mg/0.3 mL 0.3 mg IM DAILY PRN 05/27/22 02/19/23 injection, auto-injector fluoxetine 10 mg capsule 30 mg PO DAILY 05/27/22 02/19/23 fluticasone 100 mcg-salmeterol 50 1 inh inhalation Q12H 05/27/22 02/19/23 mcg/dose blistr powdr for inhalation (Advair Diskus) gabapentin 100 mg capsule 300 mg PO DAILY 05/27/22 02/19/23 lancets (Accu-Chek Fastclix Lancet 05/27/22 02/19/23 Drum) levothyroxine 100 mcg tablet 100 mcg PO DAILY 05/27/22 02/19/23 loratadine 10 mg tablet (Allergy 10 mg PO DAILY 05/27/22 02/19/23 Relief (loratadine)) olanzapine 15 mg tablet 15 mg PO HS 05/27/22 02/19/23 olanzapine 5 mg tablet 5 mg PO Q4H PRN 05/27/22 02/19/23 tramadol 50 mg tablet 50 mg PO BID PRN 05/27/22 02/19/23 melatonin 5 mg capsule 5 mg PO HS PRN 06/14/22 02/19/23 pantoprazole 40 mg tablet,delayed 40 mg PO DAILY 06/14/22 02/19/23 release sucralfate 1 gram tablet 1 g PO BID 06/14/22 02/19/23 urea 20 % topical cream 1 applic topical DAILY 06/14/22 02/19/23 calcitriol 0.25 mcg capsule 0.25 mcg PO DAILY 08/16/22 02/19/23 glycerin (adult) (Fleet Glycerin 1 supp MT DAILY PRN 08/16/22 02/19/23 (Adult) rectal suppository) propranolol 60 mg tablet 60 mg PO TID 08/16/22 02/19/23 trazodone 150 mg tablet 150 mg PO HS 08/16/22 02/19/23 albuterol sulfate 90 mcg/actuation 1 inh inhalation Q4H PRN 09/20/22 02/19/23 aerosol inhaler (Ventolin HFA) emollient (Vanicream topical) 1 applic topical Q6H PRN 09/20/22 02/19/23 hyoscyamine sulfate 0.125 mg 0.125 mg PO Q4-6H PRN 09/20/22 02/19/23 tablet (Levsin) polyethylene glycol 3350 17 17 g PO BID PRN 09/20/22 02/19/23 gram/dose oral powder (Gavilax) umeclidinium 62.5 mcg/actuation 1 inh inhalation DAILY 09/20/22 02/19/23 blister powder for inhalation (Incruse Ellipta) albuterol sulfate 2.5 mg/3 mL 2.5 mg inhalation Q4H PRN 10/08/22 02/19/23 (0.083 %) solution for nebulization sennosides 8.6 mg-docusate sodium 1 tab-cap PO BID 10/08/22 02/19/23 50 mg tablet (Senexon-S) icosapent ethyl 1 gram capsule 1 g PO BID 12/10/22 02/19/23 (Vascepa) triamcinolone acetonide 0.1 % 1 applic topical QDAY PRN chest 12/10/22 02/19/23 topical cream scars clozapine 50 mg tablet 125 mg BID 01/21/23 02/19/23 clozapine 100 mg tablet 100 mg PO BID 01/26/23 02/19/23 divalproex 500 mg tablet,extended 1,000 mg PO BID 01/26/23 02/19/23 release 24 hr fluticasone 100 mcg-salmeterol 50 1 inh inhalation BID 01/26/23 02/19/23 mcg/dose blistr powdr for inhalation (Advair Diskus) gabapentin 300 mg capsule 300 mg PO Q12H 01/26/23 02/19/23 incruse elpt 12XD 01/26/23 02/19/23 montelukast 10 mg tablet 10 mg PO QHS 01/26/23 02/19/23 (Singulair) propranolol 40 mg tablet 60 mg PO Q8H 01/26/23 02/19/23 trazodone 100 mg tablet 100 mg PO HS 01/26/23 02/19/23 Previous Rx's Medication Instructions Recorded ciprofloxacin HCl 0.3 % eye drops See Rx Instructions ophthalmic 12/24/22 (eye) .COMPLEX #10 mL Allergies Allergy/AdvReac Type Severity Reaction Status Date / Time lithium Allergy Severe Verified 03/19/23 13:31 ziprasidone [From Geodon] Allergy Severe Anaphylaxis Verified 01/26/23 16:04 amoxicillin Allergy Intermediate Hives Verified 01/26/23 16:04 Penicillins Allergy Intermediate Hives Verified 01/26/23 16:04 pineapple Allergy Intermediate Hives Verified 03/19/23 13:31 amantadine [From Symmetrel] AdvReac Intermediate sedation Verified 01/26/23 16:04 NSAIDS (Non-Steroidal AdvReac Intermediate Verified 03/19/23 13:31 Anti-Inflamma Review of Systems Status of ROS: Reports: 6 or more systems reviewed and unremarkable except as noted in History and below Const: Denies: fever or chills Eyes: Denies: change in vision ENMT: Denies: neck pain Cardio: Denies: chest pain or shortness of breath with exertion Resp: Denies: shortness of breath or cough GI: Denies: abdominal pain Musculo: Denies: back pain or neck pain PFSH PFSH Medical History ADHD ?F90.9 - Attention-deficit hyperactivity disorder, unspecified type (ICD-10) Allergic rhinitis due to pollen ?J30.1 - Allergic rhinitis due to pollen (ICD-10) Anxiety ?F41.9 - Anxiety disorder, unspecified (ICD-10) Asthma ?J45.909 - Unspecified asthma, uncomplicated (ICD-10) Autism ?F84.0 - Autistic disorder (ICD-10) Bipolar disorder ?F31.9 - Bipolar disorder, unspecified (ICD-10) 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 (ICD-10) Chronic kidney disease, stage IV (severe) ?N18.4 - Chronic kidney disease, stage 4 (severe) (ICD-10) Conjunctivitis ?H10.9 - Unspecified conjunctivitis (ICD-10) GERD (gastroesophageal reflux disease) ?K21.9 - Gastro-esophageal reflux disease without esophagitis (ICD-10) History of reactive attachment disorder ?Z86.59 - Personal history of other mental and behavioral disorders (ICD-10) Hypercoagulopathy ?D68.59 - Other primary thrombophilia (ICD-10) Hyperlipidemia ?E78.5 - Hyperlipidemia, unspecified (ICD-10) Hyperparathyroidism due to renal insufficiency ?N25.81 - Secondary hyperparathyroidism of renal origin (ICD-10) 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 [IgA] (ICD-10) Intermittent explosive disorder ?F63.81 - Intermittent explosive disorder (ICD-10) Kidney disease ?N28.9 - Disorder of kidney and ureter, unspecified (ICD-10) Mild cognitive impairment ?G31.84 - Mild cognitive impairment of uncertain or unknown etiology (ICD-10) 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 - Mild intellectual disabilities (ICD-10) Mood disorder ?F39 - Unspecified mood [affective] disorder (ICD-10) Morbid obesity with BMI of 45.0-49.9, adult ?E66.01 - Morbid (severe) obesity due to excess calories (ICD-10) ?Z68.42 - Body mass index [BMI] 45.0-49.9, adult (ICD-10) Oppositional defiant disorder ?F91.3 - Oppositional defiant disorder (ICD-10) DEBRA (obstructive sleep apnea) ?G47.33 - Obstructive sleep apnea (adult) (pediatric) (ICD-10) Pervasive developmental disorder ?F84.9 - Pervasive developmental disorder, unspecified (ICD-10) PTSD (post-traumatic stress disorder) ?F43.10 - Post-traumatic stress disorder, unspecified (ICD-10) Pulmonary emboli ?I26.99 - Other pulmonary embolism without acute cor pulmonale (ICD-10) Renal failure ?N19 - Unspecified kidney failure (ICD-10) Suicidal ideation ?R45.851 - Suicidal ideations (ICD-10) Suicide attempt ?T14.91XA - Suicide attempt, initial encounter (ICD-10) Type 2 diabetes mellitus ?E11.9 - Type 2 diabetes mellitus without complications (ICD-10) Surgical History History of appendectomy ?Z90.49 - Acquired absence of other specified parts of digestive tract (ICD- 10) History of tonsillectomy and adenoidectomy ?Z90.89 - Acquired absence of other organs (ICD-10) Social History Smoking Status: Never smoker Do you use any of these nicotine containing products: None Second hand tobacco smoke exposure: No How often do you have a drink containing alcohol: never AUDIT-C Alcohol total score: 0 Non-prescribed substance use: denies use service: No Exam Narrative: Exam Narrative: Patient is awake. She sleeps frequently. This is secondary to the multiple medications that she has for Behavioral outburst. She is responding appropriately and as at baseline. Her eyes are clear. Her head is atraumatic normocephalic. Neck is supple without pain. She is moving her neck and denies any pain. Heart is with regular rate and rhythm and lungs are clear to auscultation. Abdomen is obese soft nontender. Palpation of her back shows no tenderness. Examination of the foot shows some dorsal swelling without ecchymosis or erythema. She is tender in the distal aspect of the metatarsals. She is able to move her toes. Const: Vital Signs, click to edit/add: Vital Signs - 24 hr 03/19/23 12:28 Temperature 97.4 F L Pulse Rate [Pulse Oximeter] 85 Respiratory Rate 14 Blood Pressure [Le ft Upper Arm] 124/94 H Pulse Oximetry 92 Oxygen Delivery Me thod Room Air Documenting provider has reviewed patient's vital signs: yes Course Course Hospital Course: At this time will obtain head CT as well as left foot images. Plan on Tylenol 1 g p.o. as well. Reevaluation(s) Reevaluation #1: Patient has been resting comfortably here. She is feeling better after Tylenol. I do suspect multiple fractures of her left foot. Awaiting official radiological over-read. Head CT is reassuring. Vital Signs Vital signs: Initial Vital Signs Temperature 97.4 F L 03/19/23 12:28 Temperature Source Temporal Artery Scan 03/19/23 12:28 Pulse Rate 85 03/19/23 12:28 Respiratory Rate 14 03/19/23 12:28 Blood Pressure 124/94 H 03/19/23 12:28 Blood Pressure Mean 104 03/19/23 12:28 Pulse Oximetry 92 03/19/23 12:28 Oxygen Delivery Method Room Air 03/19/23 12:28 Vital Signs Temperature 97.4 F L 03/19/23 12:28 Pulse Rate 85 03/19/23 12:28 Respiratory Rate 14 03/19/23 12:28 Blood Pressure 124/94 H 03/19/23 12:28 Pulse Oximetry 92 03/19/23 12:28 Oxygen Delivery Method Room Air 03/19/23 12:28 Temperature 97.4 F L 03/19/23 12:28 Pulse Rate 85 03/19/23 12:28 Respiratory Rate 14 03/19/23 12:28 Blood Pressure 124/94 H 03/19/23 12:28 Pulse Oximetry 92 03/19/23 12:28 Oxygen Delivery Method Room Air 03/19/23 12:28 MDM - Fall MDM Narrative Medical decision making narrative: 1. Left foot fracture-patient has fractures of the distal metatarsals 2/3 and 4. I did speak with Dr. St[facility]. This time we will use a boot and a walker for support. Plan on follow-up in 2 weeks time for recheck. Tylenol as needed for discomfort. I would not recommend anything stronger as patient does have multiple medications that are sedating given her behavioral outburst issues. 2. Head injury-no evidence of intracranial bleed or skull fracture. 3. Disposition-home at this time. Dictation done with voice recognition, and as a result, wrong word or [id number] substitutions may have occurred.? There may be errors in the script that have gone undetected.? Please consider this when interpreting information found in this chart. Medical Records Attestation: I reviewed the patient's medical records. Imaging Data Left Foot XR: Attestation: I have reviewed the pertinent imaging results. My impression: By my read there does appear to be a fracture of the distal aspect of the 4th and 3rd metatarsals. I am also questioning fracture of the 2nd metatarsal. Radiologist's impression: Bones: Lucency at the neck of the 2nd metatarsal consistent with a nondisplaced fracture. Irregularity at the 4th metatarsal neck also consistent with a nondisplaced fracture. Somewhat more equivocal cortical irregularity at the lateral aspect of the 3rd metatarsal neck although suspicious for nondisplaced fracture. Joint spaces: Unremarkable. ? Soft tissues: Forefoot soft tissue swelling. CT scan - head: Attestation: I have reviewed the pertinent imaging results. My impression: No obvious skull fracture or intracranial bleed Radiologist's impression: ?Axial noncontrast images through the brain parenchyma demonstrates no acute intracranial hemorrhage or mass. No midline shift. No abnormal extra-axial air or fluid collections are seen. Opacification of the right maxillary sinus, ethmoid air cells sphenoid sinus, maxillary sinus frontal sinus with increased density, which could be related to inspissated mucus. Fungal component not excluded. Consider polyps as well. Mastoid air cells are clear. Impression: 1. No acute intracranial hemorrhage or mass. Discharge Plan Discharge Clinical Impression: Foot fracture, left Patient Disposition: Home w/ Parent or Adult Condition: Improved Additional Instructions: Wear boot for support. Use a walker when you are walking about. Follow-up with [facility] in 2 weeks. We will do x-rays to make sure it is healing well. Tylenol may be used for pain if needed. Prescriptions: No Action triamcinolone acetonide 0.1 % cream 1 applic topical QDAY PRN (Reason: chest scars) ciprofloxacin HCl 0.3 % drops See Rx Instructions ophthalmic (eye) .COMPLEX Qty: 10 0RF Rx Instructions: put 1-2 drps in affected eye(s) every 2hr up to 8 times/day x2days; then 4 times/day x5days ophthalmic (eye) albuterol sulfate [Ventolin HFA] 90 mcg/actuation HFA aerosol inhaler 1 inh inhalation Q4H PRN emollient [Vanicream] Cream 1 applic topical Q6H PRN polyethylene glycol 3350 [Gavilax] 17 gram/dose powder 17 g PO BID PRN Incruse Ellipta 62.5 mcg/actuation blister with device 1 inh INHALATION DAILY hyoscyamine sulfate [Levsin] 0.125 mg tablet 0.125 mg PO Q4-6H PRN Rx Instructions: 1-2tabs prn icosapent ethyl [Vascepa] 1 gram capsule 1 g PO BID sennosides-docusate sodium [Senexon-S] 8.6-50 mg tablet 1 tab-cap PO BID albuterol sulfate 2.5 mg /3 mL (0.083 %) solution for nebulization 2.5 mg inhalation Q4H PRN fluticasone propion-salmeterol [Advair Diskus] 100-50 mcg/dose blister with device 1 inh inhalation BID incruse elpt 12XD Patient Comments: 1 puff BID gabapentin 300 mg capsule 300 mg PO Q12H clozapine 100 mg tablet 100 mg PO BID trazodone 100 mg tablet 100 mg PO HS propranolol 40 mg tablet 60 mg PO Q8H montelukast [Singulair] 10 mg tablet 10 mg PO QHS divalproex 500 mg tablet extended release 24 hr 1,000 mg PO BID atorvastatin 40 mg tablet 40 mg PO DAILY olanzapine 5 mg tablet 5 mg PO Q4H PRN Patient Comments: am (DME) Accu-Chek Guide test strips Strip MISCELLANEOUS Patient Comments: USE TO TEST TWICE DAILY tramadol 50 mg tablet 50 mg PO BID PRN acetaminophen 500 mg tablet 500 mg PO BID PRN levothyroxine 100 mcg tablet 100 mcg PO DAILY (DME) lancets [Accu-Chek Fastclix Lancet Drum] Misc MISCELLANEOUS Patient Comments: USE DIRECTED amlodipine 10 mg tablet 10 mg PO DAILY calcium carbonate [Calcium Antacid] 200 mg calcium (500 mg) tablet,chewable 500 mg PO BID PRN fluoxetine 10 mg capsule 30 mg PO DAILY olanzapine 15 mg tablet 15 mg PO HS gabapentin 100 mg capsule 300 mg PO DAILY epinephrine 0.3 mg/0.3 mL auto-injector 0.3 mg IM DAILY PRN fluticasone propion-salmeterol [Advair Diskus] 100-50 mcg/dose blister with device 1 inh INHALATION Q12H albuterol sulfate 90 mcg/actuation HFA aerosol inhaler 1 - 2 puff INHALATION TID PRN loratadine [Allergy Relief (loratadine)] 10 mg tablet 10 mg PO DAILY cholecalciferol (vitamin D3) 25 mcg (1,000 unit) capsule 25 mcg PO DAILY cyclobenzaprine 5 mg tablet 5 mg PO Q8H PRN Trulicity 1.5 mg/0.5 mL pen injector 1.5 mg SUBCUT QWEEK pantoprazole 40 mg tablet,delayed release (DR/EC) 40 mg PO DAILY sucralfate 1 gram tablet 1 g PO BID urea 20 % cream 1 applic TOPICAL DAILY melatonin 5 mg capsule 5 mg PO HS PRN calcitriol 0.25 mcg capsule 0.25 mcg PO DAILY glycerin (adult) [Fleet Glycerin (Adult)] Suppository 1 supp MT DAILY PRN propranolol 60 mg tablet 60 mg PO TID Patient Comments: hold if pulse is below 65 trazodone 150 mg tablet 150 mg PO HS clozapine 50 mg tablet 125 mg BID Follow Up/Referrals: Provider,Not a Local [Referring] - Stand Alone Forms: [facility] Info Instructions
--- NOTE | 2023-03-19 12:46 | CRLHL7_ITS ---
For Patients: As a result of the Century Cures Act, medical imaging exams and procedure reports are released immediately into your electronic medical record. You may view this report before your referring provider. If you have questions, please contact your health care provider. Indication: Dorsal foot pain after fall Technique: Two views Comparison: None Findings/Impression: Bones: Lucency at the neck of the 2nd metatarsal consistent with a nondisplaced fracture. Irregularity at the 4th metatarsal neck also consistent with a nondisplaced fracture. Somewhat more equivocal cortical irregularity at the lateral aspect of the 3rd metatarsal neck although suspicious for nondisplaced fracture. Joint spaces: Unremarkable. Soft tissues: Forefoot soft tissue swelling. Dictated by Jhon Danielle MD @ 03/19/2023 1:53:29 PM (Electronically Signed)
--- NOTE | 2023-03-19 12:46 | CRLHL7_ITS ---
For Patients: As a result of the Century Cures Act, medical imaging exams and procedure reports are released immediately into your electronic medical record. You may view this report before your referring provider. If you have questions, please contact your health care provider. Indication: Fall Technique: Noncontrast head CT Comparison: Head CT 01/26/2023 Findings: Axial noncontrast images through the brain parenchyma demonstrates no acute intracranial hemorrhage or mass. No midline shift. No abnormal extra-axial air or fluid collections are seen. Opacification of the right maxillary sinus, ethmoid air cells sphenoid sinus, maxillary sinus frontal sinus with increased density, which could be related to inspissated mucus. Fungal component not excluded. Consider polyps as well. Mastoid air cells are clear. Impression: 1. No acute intracranial hemorrhage or mass. Please note that all CT scans at this facility use dose modulation, iterative reconstruction, and/or weight-based dosing when appropriate to reduce radiation dose to as low as reasonably achievable. Dictated by Katie Taveras MD @ 03/19/2023 1:51:19 PM (Electronically Signed)
[2023-03-19] MEDS: ACETAMINOPHEN 500 MG TABLET 1000 MG PO (13:59)
== END 2023-03-19 15:34 | disposition home or self-care (01) ==
PROVIDERS: Emergency Provider Family Medicine; PCP Nurse Practitioner Family
DX: S92.902A Unspecified fracture of left foot, initial encounter for closed fracture (principal); W18.30XA Fall on same level, unspecified, initial encounter
CPT/HCPCS: 70450; 73620; 99284; A9270

== ENCOUNTER 2023-05-15 10:00 | Emergency (ER) | payer MEDICARE, OTHER, SELFPAY ==
[2023-05-15] VITALS (14 sets, daily range): BP systolic 111–125; BP diastolic 74–81; PULSE 73–89; RESP 14–18; TEMP 36.6; O2SAT 86–98
--- NOTE | 2023-05-15 10:31 | ED.GENADULT ---
HPI - General Adult General Time Seen by Provider: 10:31 Date Seen: 05/15/23 Chief complaint: Unspecified Complaint, Adult Stated complaint: altered mental status Time Seen by Provider: 05/15/23 10:31 Source: patient, EMS, RN notes reviewed and other (Here with staff worker and RN from the [facility]) Mode of arrival: EMS Limitations: no limitations History of Present Illness HPI narrative: This 28-year-old female is brought in for about a month history of increased sleeping, lethargy per their words. She has been just wanting to sleep, cannot keep her up for activities. She is not eating and drinking as much. She was started on clozapine about 3 months ago. They have been working on titrating medications to diminish somnolence potentially from these. She is complaining of right ankle and foot pain, was noted to fall in the shower about a week ago. She is supposed to be doing physical therapy. Had a toe fracture on the left foot. Did discuss that we would x-ray her right ankle and foot here today just to ensure no abnormality. She has not been getting to physical therapy reportedly due to her sleepiness. She is on BiPAP for sleep apnea, does have a director blood bank and they are trying to figure out who that is. Her primary is Dr. Coles at [facility]. She sees Dr. Loja for Nephrology and has stage 3 kidney disease which is been stable. Her psychiatrist is Dr. Panda. They were worried perhaps this could be dehydration and maybe a lung infection. She was diagnosed with RSV about a year ago and was hospitalized. She is not currently coughing. No fevers. She does tell me that her ankle and foot hurt on the right side today. She has some hypoxia at home that they noted times, she is not on oxygen. She was noted to be about 88%, was started on oxygen but I did ask nursing staff to turn that off. There is no oxygen bled into her BiPAP at night. Related Data Home Medications Medication Instructions Recorded Confirmed acetaminophen 500 mg tablet 500 mg PO BID PRN 05/27/22 04/03/23 albuterol sulfate 90 mcg/actuation 1 - 2 puff inhalation TID PRN 05/27/22 04/03/23 aerosol inhaler amlodipine 10 mg tablet 10 mg PO DAILY 05/27/22 04/03/23 atorvastatin 40 mg tablet 40 mg PO DAILY 05/27/22 04/03/23 blood sugar diagnostic (Accu-Chek 05/27/22 04/03/23 Guide test strips) calcium carbonate 200 mg calcium 500 mg PO BID PRN 05/27/22 04/03/23 (500 mg) chewable tablet (Calcium Antacid) cholecalciferol (vitamin D3) 25 25 mcg PO DAILY 05/27/22 04/03/23 mcg (1,000 unit) capsule cyclobenzaprine 5 mg tablet 5 mg PO Q8H PRN 05/27/22 04/03/23 dulaglutide 1.5 mg/0.5 mL 1.5 mg subcut QWEEK 05/27/22 04/03/23 subcutaneous pen injector (Trulicity) epinephrine 0.3 mg/0.3 mL 0.3 mg IM DAILY PRN 05/27/22 04/03/23 injection, auto-injector fluoxetine 10 mg capsule 30 mg PO DAILY 05/27/22 04/03/23 fluticasone 100 mcg-salmeterol 50 1 inh inhalation Q12H 05/27/22 04/03/23 mcg/dose blistr powdr for inhalation (Advair Diskus) gabapentin 100 mg capsule 300 mg PO DAILY 05/27/22 04/03/23 lancets (Accu-Chek Fastclix Lancet 05/27/22 04/03/23 Drum) levothyroxine 100 mcg tablet 100 mcg PO DAILY 05/27/22 04/03/23 loratadine 10 mg tablet (Allergy 10 mg PO DAILY 05/27/22 04/03/23 Relief (loratadine)) olanzapine 15 mg tablet 15 mg PO HS 05/27/22 04/03/23 olanzapine 5 mg tablet 5 mg PO Q4H PRN 05/27/22 04/03/23 tramadol 50 mg tablet 50 mg PO BID PRN 05/27/22 04/03/23 melatonin 5 mg capsule 5 mg PO HS PRN 06/14/22 04/03/23 pantoprazole 40 mg tablet,delayed 40 mg PO DAILY 06/14/22 04/03/23 release sucralfate 1 gram tablet 1 g PO BID 06/14/22 04/03/23 urea 20 % topical cream 1 applic topical DAILY 06/14/22 04/03/23 calcitriol 0.25 mcg capsule 0.25 mcg PO DAILY 08/16/22 04/03/23 glycerin (adult) (Fleet Glycerin 1 supp MA DAILY PRN 08/16/22 04/03/23 (Adult) rectal suppository) propranolol 60 mg tablet 60 mg PO TID 08/16/22 04/03/23 trazodone 150 mg tablet 150 mg PO HS 08/16/22 04/03/23 albuterol sulfate 90 mcg/actuation 1 inh inhalation Q4H PRN 09/20/22 04/03/23 aerosol inhaler (Ventolin HFA) emollient (Vanicream topical) 1 applic topical Q6H PRN 09/20/22 04/03/23 hyoscyamine sulfate 0.125 mg 0.125 mg PO Q4-6H PRN 09/20/22 04/03/23 tablet (Levsin) polyethylene glycol 3350 17 17 g PO BID PRN 09/20/22 04/03/23 gram/dose oral powder (Gavilax) umeclidinium 62.5 mcg/actuation 1 inh inhalation DAILY 09/20/22 04/03/23 blister powder for inhalation (Incruse Ellipta) albuterol sulfate 2.5 mg/3 mL 2.5 mg inhalation Q4H PRN 10/08/22 04/03/23 (0.083 %) solution for nebulization sennosides 8.6 mg-docusate sodium 1 tab-cap PO BID 10/08/22 04/03/23 50 mg tablet (Senexon-S) icosapent ethyl 1 gram capsule 1 g PO BID 12/10/22 04/03/23 (Vascepa) triamcinolone acetonide 0.1 % 1 applic topical QDAY PRN chest 12/10/22 04/03/23 topical cream scars clozapine 50 mg tablet 125 mg BID 01/21/23 04/03/23 clozapine 100 mg tablet 100 mg PO BID 01/26/23 04/03/23 divalproex 500 mg tablet,extended 1,000 mg PO BID 01/26/23 04/03/23 release 24 hr fluticasone 100 mcg-salmeterol 50 1 inh inhalation BID 01/26/23 04/03/23 mcg/dose blistr powdr for inhalation (Advair Diskus) gabapentin 300 mg capsule 300 mg PO Q12H 01/26/23 04/03/23 incruse elpt 12XD 01/26/23 04/03/23 montelukast 10 mg tablet 10 mg PO QHS 01/26/23 04/03/23 (Singulair) propranolol 40 mg tablet 60 mg PO Q8H 01/26/23 04/03/23 trazodone 100 mg tablet 100 mg PO HS 01/26/23 04/03/23 Previous Rx's Medication Instructions Recorded ciprofloxacin HCl 0.3 % eye drops See Rx Instructions ophthalmic 12/24/22 (eye) .COMPLEX #10 mL Walker- 2 Wheels #1 ea 03/19/23 Allergies Allergy/AdvReac Type Severity Reaction Status Date / Time lithium Allergy Severe Verified 04/03/23 14:12 ziprasidone [From Geodon] Allergy Severe Anaphylaxis Verified 04/03/23 14:12 amoxicillin Allergy Intermediate Hives Verified 04/03/23 14:12 Penicillins Allergy Intermediate Hives Verified 04/03/23 14:12 pineapple Allergy Intermediate Hives Verified 04/03/23 14:12 amantadine [From Symmetrel] AdvReac Intermediate sedation Verified 04/03/23 14:12 NSAIDS (Non-Steroidal AdvReac Intermediate Verified 04/03/23 14:12 Anti-Inflamma Review of Systems Status of ROS: Reports: 6 or more systems reviewed and unremarkable except as noted in History and below [facility] Medical History (Updated 05/15/23 @ 13:23 by Teresa Day MD) History of pulmonary embolism ?Z86.711 - Personal history of pulmonary embolism (ICD-10) Conjunctivitis ?H10.9 - Unspecified conjunctivitis (ICD-10) Hyperlipidemia ?E78.5 - Hyperlipidemia, unspecified (ICD-10) Allergic rhinitis due to pollen ?J30.1 - Allergic rhinitis due to pollen (ICD-10) Hypercoagulopathy ?D68.59 - Other primary thrombophilia (ICD-10) Autism ?F84.0 - Autistic disorder (ICD-10) Anxiety ?F41.9 - Anxiety disorder, unspecified (ICD-10) 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 [IgA] (ICD-10) Mild cognitive impairment ?G31.84 - Mild cognitive impairment of uncertain or unknown etiology (ICD-10) ADHD ?F90.9 - Attention-deficit hyperactivity disorder, unspecified type (ICD-10) Bipolar disorder ?F31.9 - Bipolar disorder, unspecified (ICD-10) 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 (ICD-10) Hyperparathyroidism due to renal insufficiency ?N25.81 - Secondary hyperparathyroidism of renal origin (ICD-10) Pulmonary emboli ?I26.99 - Other pulmonary embolism without acute cor pulmonale (ICD-10) Suicidal ideation ?R45.851 - Suicidal ideations (ICD-10) Suicide attempt ?T14.91XA - Suicide attempt, initial encounter (ICD-10) Chronic kidney disease, stage IV (severe) ?N18.4 - Chronic kidney disease, stage 4 (severe) (ICD-10) Morbid obesity with BMI of 45.0-49.9, adult ?E66.01 - Morbid (severe) obesity due to excess calories (ICD-10) ?Z68.42 - Body mass index [BMI] 45.0-49.9, adult (ICD-10) Asthma ?J45.909 - Unspecified asthma, uncomplicated (ICD-10) DEBRA (obstructive sleep apnea) ?G47.33 - Obstructive sleep apnea (adult) (pediatric) (ICD-10) Kidney disease ?N28.9 - Disorder of kidney and ureter, unspecified (ICD-10) GERD (gastroesophageal reflux disease) ?K21.9 - Gastro-esophageal reflux disease without esophagitis (ICD-10) Renal failure ?N19 - Unspecified kidney failure (ICD-10) Type 2 diabetes mellitus ?E11.9 - Type 2 diabetes mellitus without complications (ICD-10) 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 - Mild intellectual disabilities (ICD-10) History of reactive attachment disorder ?Z86.59 - Personal history of other mental and behavioral disorders (ICD-10) Oppositional defiant disorder ?F91.3 - Oppositional defiant disorder (ICD-10) Pervasive developmental disorder ?F84.9 - Pervasive developmental disorder, unspecified (ICD-10) Intermittent explosive disorder ?F63.81 - Intermittent explosive disorder (ICD-10) Mood disorder ?F39 - Unspecified mood [affective] disorder (ICD-10) PTSD (post-traumatic stress disorder) ?F43.10 - Post-traumatic stress disorder, unspecified (ICD-10) Surgical History History of tonsillectomy and adenoidectomy ?Z90.89 - Acquired absence of other organs (ICD-10) History of appendectomy ?Z90.49 - Acquired absence of other specified parts of digestive tract (ICD-10) Social History Smoking Status: Former smoker Do you use any of these nicotine containing products: None Second hand tobacco smoke exposure: No How often do you have a drink containing alcohol: never AUDIT-C Alcohol total score: 0 Non-prescribed substance use: denies use service: No Exam Const: Vital Signs, click to edit/add: Vital Signs - 24 hr 05/15/23 10:00 05/15/23 10:12 05/15/23 10:30 Temperature 97.9 F Pulse Rate Pulse Rate [Left P ulse Oximeter] 82 80 73 Respiratory Rate 14 14 18 Blood Pressure Blood Pressure [Ri ght Upper Arm] 121/81 121/81 125/79 Pulse Oximetry 90 88 98 Oxygen Delivery Me thod Room Air Room Air 05/15/23 11:00 05/15/23 12:00 05/15/23 12:14 Temperature Pulse Rate 80 Pulse Rate [Left P ulse Oximeter] 80 Respiratory Rate 14 Blood Pressure Blood Pressure [Ri ght Upper Arm] 111/74 Pulse Oximetry 89 89 88 Oxygen Delivery Me thod Room Air 05/15/23 12:30 05/15/23 12:31 05/15/23 13:00 Temperature Pulse Rate 79 82 80 Pulse Rate [Left P ulse Oximeter] Respiratory Rate Blood Pressure 114/81 Blood Pressure [Ri ght Upper Arm] Pulse Oximetry 93 93 88 Oxygen Delivery Me thod 05/15/23 13:05 Temperature Pulse Rate 78 Pulse Rate [Left P ulse Oximeter] Respiratory Rate Blood Pressure Blood Pressure [Ri ght Upper Arm] Pulse Oximetry 86 L Oxygen Delivery Me thod Documenting provider has reviewed patient's vital signs: yes Common normals: no apparent distress General appearance: cooperative, comfortable, well kempt and well developed Nutritional appearance: obese Other: Sleepy but easily arousable patient. She will wake up and talk to me. Do note that she falls back to sleep easily though. HENMT: Common normals: normocephalic, head/scalp atraumatic, hearing grossly normal bilaterally, external ears normal, external nose normal, moist oral mucous membranes and oropharynx normal Head and scalp: normocephalic and atraumatic Face and sinus: normal facial exam Nose: external nose normal External ear: external ears normal Eye: Common normals: PERRL, EOMs intact bilaterally, conjunctivae normal and no scleral icterus Conjunctiva: conjunctiva(e) normal Pupil: PERRL Neck & C-Spine: Common normals: full ROM, no lymphadenopathy, supple, no meningeal signs, no JVD and thyroid normal Thyroid: thyroid normal Lymph: Lymphatic: no lymphadenopathy noted Resp: Common normals: normal respiratory effort, no retractions, no use of accessory muscles and clear to auscultation bilaterally Effort & inspection: able to speak in complete sentences Auscultation: clear to auscultation bilaterally Cardio: Common normals: no JVD, regular rate, regular rhythm, S1 normal heart sound, S2 normal heart sound, no gallops, no clicks, no murmurs and no rub Rate: regular rate Rhythm: regular rhythm Heart sounds: S1 normal and S2 normal GI: Common normals: Normal to inspection, nondistended, normoactive bowel sounds present, soft to palpation, non-tender, no hepatosplenomegaly and no masses Palpation: soft and no hepatosplenomegaly Extremity: Other: Withdraws and complains of pain when I attempt to touch anywhere in the foot or ankle. Neurovascular seems to be intact, no overlying swelling or ecchymosis. Difficult to examine her due to her complaint of pain. There is no swelling in her lower extremities. Neuro: Meningeal signs: no meningeal signs Psych: Appearance: well kempt Course Course Hospital Course: Have reviewed with them that this is something that we can do some initial workup for. I do worry that this somnolence may be coming from a central respiratory issue and may need further pulmonology workup/sleep evaluation. I cannot provide these things here. We did review that she is mildly hypoxic, would caution that we need to know more information before just giving her oxygen. We did discuss that in certain patient populations oxygen actually can be detrimental with increasing somnolence and hypercapnia. I will x-ray her foot and ankle for them given she has ongoing complaints of pain and did have a fall about a week ago reportedly. Will do basic lab work to make sure that there is no concerning metabolic derangements. Highly doubt that this is an infectious etiology that has been going on for a month. Nursing staff is turned oxygen off, will get a venous blood gas to start at least. Reevaluation(s) Time of Reevaluation #1: 13:01 Reevaluation #1: She is more alert per her care providers, is awake when I go in. She states she has been vomiting. Her care providers state that she gags when she eats sometimes, this is not new and has been evaluated by a Gastroenterology. No actual vomiting has been witnessed. She has been diagnosed with hypoventilation respiratory syndrome. There are issues with her mask reportedly. Have reviewed with them that I believe her issues are stemming from her sleep apnea and hypersomnolence and hypercapnia. She sees Dr. Way from pulmonology. Will see if I can touch base with someone from her group just to review current situation. I do not feel that we can potentially safely start oxygen without sleep study for sleep consultation with this patient. She may need it blood in on her BiPAP but this is not something I can assess or order for her. Thus, will attempt to talk to pulmonology. Time of Reevaluation #2: 13:17 Reevaluation #2: Have reviewed recommendations from pulmonology that I just spoke with. [facility]. I have confirmed that they are still using the same face mask, have not gotten a new 1 yet but something is reportedly ordered. Consultations Consultation #1: Spoke with Dr. Camargo her director blood bank. Patient was just in 2 weeks ago, her sleep apnea was not being treated at all as the facemask they were using was completely leaking. She recommended a different nasal mask or different nasal pillows. She agrees with increased use of BiPAP even during the day if patient is in her room and resting. She needs her sleep apnea treated. She has hypercapnia and hypoventilation syndrome due to her severe sleep apnea. She agrees treatment with BiPAP is what is needed. Is not recommending oxygen at this time. Time: 13:15 Vital Signs Vital signs: Initial Vital Signs Pulse Rate 82 06/20/23 10:00 Respiratory Rate 14 05/15/23 10:00 Blood Pressure 121/81 05/15/23 10:00 Blood Pressure Mean 94 05/15/23 10:00 Blood Pressure Position Sitting 05/15/23 10:00 Pulse Oximetry 90 05/15/23 10:00 Vital Signs Pulse Rate 82 05/15/23 10:00 Respiratory Rate 14 05/15/23 10:00 Blood Pressure 121/81 05/15/23 10:00 Pulse Oximetry 90 05/15/23 10:00 Temperature 97.9 F 05/15/23 10:12 Pulse Rate 78 05/15/23 13:05 Respiratory Rate 14 05/15/23 12:00 Blood Pressure 114/81 05/15/23 12:31 Pulse Oximetry 86 L 05/15/23 13:05 Oxygen Delivery Method Room Air 05/15/23 12:00 Medical Decision Making Lab Data Lab results reviewed: Yes I reviewed the patient's lab results Labs: Lab Results 05/15/23 05/15/23 Range/Units 11:14 11:59 WBC 5.61 (4.50-11.00) K/uL RBC 4.10 (4.00-5.20) m/uL Hgb 11.8 L (12.0-16.0) gm/dL Hct 38.1 (33.0-51.0) % MCV 93 (80-100) fL MCH 29 (26-34) pg MCHC 31 L (32-36) gm/dL RDW Coeff of Moshe 18.2 H (11.5-15.5) % Plt Count 162 (140-440) K/uL Neut % (Auto) 37.2 L (42.0-72.0) % Lymph % (Auto) 39.6 (20-44) % Duval % (Auto) 17.3 H (0.0-11.0) % Eos % (Auto) 3.4 (0.0-7.0) % Baso % (Auto) 0.4 (0.0-3.0) % Neut # (Auto) 2.10 (1.7-7.0) K/uL Lymph # (Auto) 2.22 (0.90-2.90) K/uL Duval # (Auto) 1.00 H (0.00-0.90) K/UL Eos # (Auto) 0.19 (0.00-0.50) K/uL Baso # (Auto) 0.02 (0.00-0.30) K/uL VBG pH 7.319 L (7.32-7.43) VBG pCO2 57 H (40-50) mmHG VBG pO2 34.0 (25-47) mmHG VBG HCO3 29 H (21-28) mmol/L Sodium 135 (135-149) mmol/L Potassium 3.4 L (3.6-5.1) mmol/L Chloride 98 (96-114) mmol/L Carbon Dioxide 28 (20-32) mmol/L BUN 26 H (5-24) mg/dL Creatinine 3.4 H (0.5-1.5) mg/dL Estimated GFR 18 ml/min Glucose 118 H (60-115) mg/dL Lactate 1.1 (0.5-1.9) mmol/L Calcium 10.1 (8.4-10.6) mg/dL Total Bilirubin 0.9 (0.1-1.5) mg/dL AST 54 H (12-35) U/L ALT 39 H (4-35) U/L Alkaline Phosphatase 87 (40-150) U/L C-Reactive Protein 5.6 H (0.5-1.0) mg/dL Total Protein 8.8 H (6.0-8.3) g/dL Albumin 4.2 (3.3-5.0) g/dL Urine Color Yellow (Yellow) Urine Appearance Clear (Clear) Urine pH 6.0 (5.0-8.5) Ur Specific Weston <= 1.005 (1.000-1.030) Urine Protein 1+ A (Negative) Urine Glucose (UA) Negative (Negative) Urine Ketones Negative (Negative) Urine Blood Negative (Negative) Urine Nitrite Negative (Negative) Urine Bilirubin Negative (Negative) Urine Urobilinogen 1.0 (0.2-1.0) Ur Leukocyte Esterase Negative (Negative) Urine RBC 0-2 (0-2) Urine WBC 2-5 (0-5) Ur Squamous Epith Cells Few (None-Few) Urine Bacteria None (None) Imaging Data XR right ankle: Attestation: I have reviewed the pertinent imaging results. My impression: No acute pathology on my preliminary review. Radiologist's impression: Patient: GEORGE ZAMORANO Facility:?[facility] Patient ID:?[id number] Site Patient ID:?[id number]. Site :?[id number] Study:?XRay Extremity Right ANKLE 3V-05/15/2023 11:42:39 AM Ordering Physician:Dominick Moore Final Report: Indication: Injury and pain Technique: Right ankle 3 views. Comparison: None Findings: Bones: Alignment is normal. No fractures or bone lesions. Joint spaces: Unremarkable. Soft tissues: Unremarkable. Impression: Unremarkable right ankle. Dictated by Jhon Danielle MD @ 05/15/2023 1:00:51 PM (Electronic Signature) Critical Care Time Critical Care Time Critical Care Time: No Discharge Plan Discharge Clinical Impression: Obstructive sleep apnea, Hypercapnia Patient Disposition: Home w/ Parent or Adult Condition: Unchanged Additional Instructions: As reviewed with director blood bank Dr. Way, patient needs to use her BiPAP, even if resting during the day. Her face mask that she is currently using is not effective at all and does not treat her sleep apnea. This is resulting in hypercapnia and hypersomnolence for the patient meaning she is sleepy from this. Oxygen is not recommended at this point, director blood bank recommended treating with BiPAP in an effective manner. If there are further issues or problems, recommend following up with primary care provider and or the director blood bank. It is possible that she may need a new sleep study but will leave this to her primary care provider or director blood bank. Activity Level: Activity as Tolerated Prescriptions: No Action triamcinolone acetonide 0.1 % cream 1 applic topical QDAY PRN (Reason: chest scars) ciprofloxacin HCl 0.3 % drops See Rx Instructions ophthalmic (eye) .COMPLEX Qty: 10 0RF Rx Instructions: put 1-2 drps in affected eye(s) every 2hr up to 8 times/day x2days; then 4 times/day x5days ophthalmic (eye) albuterol sulfate [Ventolin HFA] 90 mcg/actuation HFA aerosol inhaler 1 inh inhalation Q4H PRN emollient [Vanicream] Cream 1 applic topical Q6H PRN polyethylene glycol 3350 [Gavilax] 17 gram/dose powder 17 g PO BID PRN Incruse Ellipta 62.5 mcg/actuation blister with device 1 inh INHALATION DAILY hyoscyamine sulfate [Levsin] 0.125 mg tablet 0.125 mg PO Q4-6H PRN Rx Instructions: 1-2tabs prn icosapent ethyl [Vascepa] 1 gram capsule 1 g PO BID sennosides-docusate sodium [Senexon-S] 8.6-50 mg tablet 1 tab-cap PO BID albuterol sulfate 2.5 mg /3 mL (0.083 %) solution for nebulization 2.5 mg inhalation Q4H PRN fluticasone propion-salmeterol [Advair Diskus] 100-50 mcg/dose blister with device 1 inh inhalation BID incruse elpt 12XD Patient Comments: 1 puff BID gabapentin 300 mg capsule 300 mg PO Q12H clozapine 100 mg tablet 100 mg PO BID trazodone 100 mg tablet 100 mg PO HS propranolol 40 mg tablet 60 mg PO Q8H montelukast [Singulair] 10 mg tablet 10 mg PO QHS divalproex 500 mg tablet extended release 24 hr 1,000 mg PO BID atorvastatin 40 mg tablet 40 mg PO DAILY olanzapine 5 mg tablet 5 mg PO Q4H PRN Patient Comments: am (DME) Accu-Chek Guide test strips Strip MISCELLANEOUS Patient Comments: USE TO TEST TWICE DAILY tramadol 50 mg tablet 50 mg PO BID PRN acetaminophen 500 mg tablet 500 mg PO BID PRN levothyroxine 100 mcg tablet 100 mcg PO DAILY (DME) lancets [Accu-Chek Fastclix Lancet Drum] Misc MISCELLANEOUS Patient Comments: USE DIRECTED amlodipine 10 mg tablet 10 mg PO DAILY calcium carbonate [Calcium Antacid] 200 mg calcium (500 mg) tablet,chewable 500 mg PO BID PRN fluoxetine 10 mg capsule 30 mg PO DAILY olanzapine 15 mg tablet 15 mg PO HS gabapentin 100 mg capsule 300 mg PO DAILY epinephrine 0.3 mg/0.3 mL auto-injector 0.3 mg IM DAILY PRN fluticasone propion-salmeterol [Advair Diskus] 100-50 mcg/dose blister with device 1 inh INHALATION Q12H albuterol sulfate 90 mcg/actuation HFA aerosol inhaler 1 - 2 puff INHALATION TID PRN loratadine [Allergy Relief (loratadine)] 10 mg tablet 10 mg PO DAILY cholecalciferol (vitamin D3) 25 mcg (1,000 unit) capsule 25 mcg PO DAILY cyclobenzaprine 5 mg tablet 5 mg PO Q8H PRN Trulicity 1.5 mg/0.5 mL pen injector 1.5 mg SUBCUT QWEEK pantoprazole 40 mg tablet,delayed release (DR/EC) 40 mg PO DAILY sucralfate 1 gram tablet 1 g PO BID urea 20 % cream 1 applic TOPICAL DAILY melatonin 5 mg capsule 5 mg PO HS PRN calcitriol 0.25 mcg capsule 0.25 mcg PO DAILY glycerin (adult) [Fleet Glycerin (Adult)] Suppository 1 supp MA DAILY PRN propranolol 60 mg tablet 60 mg PO TID Patient Comments: hold if pulse is below 65 trazodone 150 mg tablet 150 mg PO HS clozapine 50 mg tablet 125 mg BID (DME) Walker- 2 Wheels Misc See Rx Instructions .Route Qty: 1 0RF Rx Instructions: As directed Follow Up/Referrals: Provider,Not a Local [Primary Care Provider] - Stand Alone Forms: [facility]
--- NOTE | 2023-05-15 10:41 | CRLHL7_ITS ---
For Patients: As a result of the Cures Act, medical imaging exams and procedure reports are released immediately into your electronic medical record. You may view this report before your referring provider. If you have questions, please contact your health care provider. Indication: Hypoxia, altered mental status Technique: Chest 2 views Comparison: None Findings/Impression: Cardiovascular and mediastinum: Heart size and vasculature are normal in caliber and appearance. Mediastinum is within normal limits. Lungs and pleural spaces: Lungs are clear. No sign of infiltrate or mass. No sign of pleural effusion. No pneumothorax. Bones and soft tissues: No significant findings. Dictated by Jhon Danielle MD @ 05/15/2023 1:28:17 PM (Electronically Signed)
--- NOTE | 2023-05-15 10:53 | CRLHL7_ITS ---
For Patients: As a result of the Cures Act, medical imaging exams and procedure reports are released immediately into your electronic medical record. You may view this report before your referring provider. If you have questions, please contact your health care provider. Indication: Injury and pain Technique: Right foot 3 views. Comparison: None Findings: Bones: Alignment is normal. No fractures or bone lesions. Joint spaces: Unremarkable. Soft tissues: Unremarkable. Impression: Unremarkable right foot. Dictated by Jhon Danielle MD @ 05/15/2023 1:27:34 PM (Electronically Signed)
--- NOTE | 2023-05-15 10:53 | CRLHL7_ITS ---
For Patients: As a result of the Cures Act, medical imaging exams and procedure reports are released immediately into your electronic medical record. You may view this report before your referring provider. If you have questions, please contact your health care provider. Indication: Injury and pain Technique: Right ankle 3 views. Comparison: None Findings: Bones: Alignment is normal. No fractures or bone lesions. Joint spaces: Unremarkable. Soft tissues: Unremarkable. Impression: Unremarkable right ankle. Dictated by Jhon Danielle MD @ 05/15/2023 1:00:51 PM (Electronically Signed)
[2023-05-15 11:21] LABS: Basophils Absolute Auto 0.02 K/uL (0.00-0.30); Basophils Percent Auto 0.4 % (0.0-3.0); Eosinophils Absolute Auto 0.19 K/uL (0.00-0.50); Eosinophils Percent Auto 3.4 % (0.0-7.0); Hematocrit 38.1 % (33.0-51.0); Hemoglobin* 11.8 gm/dL (12.0-16.0); Immature Granulocytes Abs Auto 0.12 K/uL (0.00-0.30); Immature Granulocytes Pct Auto 2.1 %; Lymphocytes Absolute Auto 2.22 K/uL (0.90-2.90); Lymphocytes Percent Auto 39.6 % (20-44); Mean Corpuscular HGB Conc 31 gm/dL (32-36); Mean Corpuscular Hemoglobin 29 pg (26-34); Mean Corpuscular Volume 93 fL (80-100); Monocytes Percent Auto 17.3 % (0.0-11.0); Neutrophils Percent Auto 37.2 % (42.0-72.0); Platelet Count* 162 K/uL (140-440); RDW Coefficient of Variation % 18.2 % (11.5-15.5); White Blood Count* 5.61 K/uL (4.50-11.00)
[2023-05-15 11:22] LABS: HCO3 VBG 29 mmol/L (21-28); Lactate* 1.1 mmol/L (0.5-1.9); PCO2 VBG 57 mmHG (40-50); pH VBG 7.319 (7.32-7.43)
[2023-05-15 11:24] LABS: Slide Review Reflex No
[2023-05-15 11:39] LABS: Albumin* 4.2 g/dL (3.3-5.0); Chloride* 98 mmol/L (96-114); Sodium* 135 mmol/L (135-149)
[2023-05-15 11:40] LABS: Potassium* 3.4 mmol/L (3.6-5.1)
[2023-05-15 11:42] LABS: Alkaline Phosphatase* 87 U/L (40-150); Aspartate Amino Transferase* 54 U/L (12-35); Bilirubin Total* 0.9 mg/dL (0.1-1.5); Carbon Dioxide* 28 mmol/L (20-32); Creatinine* 3.4 mg/dL (0.5-1.5); Estimated Glomerular Filt Rate 18 ml/min; Total Protein* 8.8 g/dL (6.0-8.3)
[2023-05-15 11:43] LABS: Alanine Aminotransferase* 39 U/L (4-35); Blood Urea Nitrogen* 26 mg/dL (5-24); Calcium* 10.1 mg/dL (8.4-10.6); Glucose* 118 mg/dL (60-115)
[2023-05-15 11:45] LABS: C Reactive Protein* 5.6 mg/dL (0.5-1.0)
[2023-05-15 12:19] LABS: Appearance Urine Clear (Clear); Bilirubin Urine Negative (Negative); Blood Urine Negative (Negative); Color Urine Yellow (Yellow); Glucose Urine Negative (Negative); Ketones Urine Negative (Negative); Leukocyte Esterase Urine Negative (Negative); Nitrite Urine Negative (Negative); Protein Urine 1+ (Negative); Specific Gravity Urine <= 1.005 (1.000-1.030)
[2023-05-15 12:45] LABS: RBC Urine 0-2 (0-2); Squamous Epithelial Cell Urine Few (None-Few)
[2023-05-15] MEDS: ACETAMINOPHEN 500 MG TABLET PO (13:53)
== END 2023-05-15 14:14 | disposition home or self-care (01) ==
PROVIDERS: Emergency Provider Family Medicine
DX: G47.33 Obstructive sleep apnea (adult) (pediatric) (principal); E83.52 Hypercalcemia
CPT/HCPCS: 36415; 71046; 73610; 73630; 80053; 81001; 82803; 83605; 85025; 86140; 94761; 99284; 99285; A9270

== ENCOUNTER 2023-06-29 16:45 | Outpatient (CLI) | payer MEDICARE, OTHER, SELFPAY | END 2023-06-29 16:46 | disposition home or self-care (01) | LOC: AMB 07-03 11:39 | PROVIDERS: Visit Provider Family Medicine | DX: M79.604 Pain in right leg (principal); R53.83 Other fatigue | CPT/HCPCS: A0425; A0429 ==

== ENCOUNTER 2023-06-29 17:17 | Emergency (ER) | payer MEDICARE, OTHER, SELFPAY ==
[2023-06-29 17:22] VITALS: BP 148/93; PULSE 105; RESP 20; TEMP 36.4; O2SAT 95; BMI 39.4
--- NOTE | 2023-06-29 17:40 | CRLHL7_ITS ---
For Patients: As a result of the Century Cures Act, medical imaging exams and procedure reports are released immediately into your electronic medical record. You may view this report before your referring provider. If you have questions, please contact your health care provider. Indication: Pain and swelling Technique: Three views of the right ankle, nonweightbearing Comparison: Right ankle radiograph on May 15, 2023 Findings: No acute fracture. Normal alignment with congruent ankle mortise on nonweightbearing view. Minimal soft tissue swelling about the ankle. Tiny plantar calcaneal enthesophyte. No radiopaque foreign body. Impression: No acute fracture. Dictated by Bogdan Clayton MD @ 06/29/2023 6:49:04 PM (Electronically Signed)
--- NOTE | 2023-06-29 18:00 | ED_ITS ---
HPI - General Adult General Chief complaint: Extremity Pain/Injury, Lower Stated complaint: Leg pain Time Seen by Provider: 06/29/23 17:33 Source: patient Limitations: no limitations History of Present Illness HPI narrative: 28-year-old female, resident at a long term with a very complex medical history, presents today with pain of her extremity. Patient states that her entire right leg hurts. She states that it has been hurting for several days. Nothing seems to make it better or worse. She states that it hurts so much that she cannot walk. She states that she has been passing out multiple times per day and falling. She states that she loses consciousness multiple times per day. I did call the long term and spoke to Yadi, to care of the patient today. She states that she woke up this morning and refused to walk. As far she knows she was walking yesterday. Yadi states that there is no documentation anywhere that she has been falling, and there is no documentation that she has been losing consciousness multiple times per day. Related Data Home Medications Medication Instructions Recorded Confirmed acetaminophen 500 mg tablet 500 mg PO BID PRN 05/27/22 05/18/23 albuterol sulfate 90 mcg/actuation 1 - 2 puff inhalation TID PRN 05/27/22 05/18/23 aerosol inhaler amlodipine 10 mg tablet 10 mg PO DAILY 05/27/22 05/18/23 atorvastatin 40 mg tablet 40 mg PO DAILY 05/27/22 05/18/23 blood sugar diagnostic (Accu-Chek 05/27/22 05/18/23 Guide test strips) calcium carbonate 200 mg calcium 500 mg PO BID PRN 05/27/22 05/18/23 (500 mg) chewable tablet (Calcium Antacid) cholecalciferol (vitamin D3) 25 25 mcg PO DAILY 05/27/22 05/18/23 mcg (1,000 unit) capsule cyclobenzaprine 5 mg tablet 5 mg PO Q8H PRN 05/27/22 05/18/23 dulaglutide 1.5 mg/0.5 mL 1.5 mg subcut QWEEK 05/27/22 05/18/23 subcutaneous pen injector (Trulicity) epinephrine 0.3 mg/0.3 mL 0.3 mg IM DAILY PRN 05/27/22 05/18/23 injection, auto-injector fluoxetine 10 mg capsule 30 mg PO DAILY 05/27/22 05/18/23 fluticasone 100 mcg-salmeterol 50 1 inh inhalation Q12H 05/27/22 05/18/23 mcg/dose blistr powdr for inhalation (Advair Diskus) gabapentin 100 mg capsule 300 mg PO DAILY 05/27/22 05/18/23 lancets (Accu-Chek Fastclix Lancet 05/27/22 05/18/23 Drum) levothyroxine 100 mcg tablet 100 mcg PO DAILY 05/27/22 05/18/23 loratadine 10 mg tablet (Allergy 10 mg PO DAILY 05/27/22 05/18/23 Relief (loratadine)) olanzapine 15 mg tablet 15 mg PO HS 05/27/22 05/18/23 olanzapine 5 mg tablet 5 mg PO Q4H PRN 05/27/22 05/18/23 tramadol 50 mg tablet 50 mg PO BID PRN 05/27/22 05/18/23 melatonin 5 mg capsule 5 mg PO HS PRN 06/14/22 05/18/23 pantoprazole 40 mg tablet,delayed 40 mg PO DAILY 06/14/22 05/18/23 release sucralfate 1 gram tablet 1 g PO BID 06/14/22 05/18/23 urea 20 % topical cream 1 applic topical DAILY 06/14/22 05/18/23 calcitriol 0.25 mcg capsule 0.25 mcg PO DAILY 08/16/22 05/18/23 glycerin (adult) (Fleet Glycerin 1 supp VT DAILY PRN 08/16/22 05/18/23 (Adult) rectal suppository) albuterol sulfate 90 mcg/actuation 1 inh inhalation Q4H PRN 09/20/22 05/18/23 aerosol inhaler (Ventolin HFA) emollient (Vanicream topical) 1 applic topical Q6H PRN 09/20/22 05/18/23 hyoscyamine sulfate 0.125 mg 0.125 mg PO Q4-6H PRN 09/20/22 05/18/23 tablet (Levsin) polyethylene glycol 3350 17 17 g PO BID PRN 09/20/22 05/18/23 gram/dose oral powder (Gavilax) umeclidinium 62.5 mcg/actuation 1 inh inhalation DAILY 09/20/22 05/18/23 blister powder for inhalation (Incruse Ellipta) albuterol sulfate 2.5 mg/3 mL 2.5 mg inhalation Q4H PRN 10/08/22 05/18/23 (0.083 %) solution for nebulization sennosides 8.6 mg-docusate sodium 1 tab-cap PO BID 10/08/22 05/18/23 50 mg tablet (Senexon-S) icosapent ethyl 1 gram capsule 1 g PO BID 12/10/22 05/18/23 (Vascepa) triamcinolone acetonide 0.1 % 1 applic topical QDAY PRN chest 12/10/22 05/18/23 topical cream scars clozapine 50 mg tablet 125 mg BID 01/21/23 05/18/23 clozapine 100 mg tablet 100 mg PO BID 01/26/23 05/18/23 divalproex 500 mg tablet,extended 1,000 mg PO BID 01/26/23 05/18/23 release 24 hr fluticasone 100 mcg-salmeterol 50 1 inh inhalation BID 01/26/23 05/18/23 mcg/dose blistr powdr for inhalation (Advair Diskus) gabapentin 300 mg capsule 300 mg PO Q12H 01/26/23 05/18/23 incruse elpt 12XD 01/26/23 05/18/23 montelukast 10 mg tablet 10 mg PO QHS 01/26/23 05/18/23 (Singulair) propranolol 60 mg tablet 60 mg PO QHS 05/18/23 05/18/23 Previous Rx's Medication Instructions Recorded ciprofloxacin HCl 0.3 % eye drops See Rx Instructions ophthalmic 12/24/22 (eye) .COMPLEX #10 mL Walker- 2 Wheels #1 ea 03/19/23 Allergies Allergy/AdvReac Type Severity Reaction Status Date / Time lithium Allergy Severe Verified 05/18/23 10:34 ziprasidone [From Geodon] Allergy Severe Anaphylaxis Verified 05/18/23 10:34 amoxicillin Allergy Intermediate Hives Verified 05/18/23 10:34 Penicillins Allergy Intermediate Hives Verified 05/18/23 10:34 pineapple Allergy Intermediate Hives Verified 05/18/23 10:34 amantadine [From Symmetrel] AdvReac Intermediate sedation Verified 05/18/23 10:34 NSAIDS (Non-Steroidal AdvReac Intermediate Verified 05/18/23 10:34 Anti-Inflamma Review of Systems Status of ROS: Reports: 10 or more systems reviewed and unremarkable except as noted in History and below Narrative: Review of systems grossly positive for multiple concerns and multiple systems. Patient is complaining of headache, dry eyes, dry mouth, difficulty swallowing, abdominal pain that is diffuse, difficulty with urination, constipation, skin changes, difficulty with ambulation, dizziness, syncope, decreased appetite, decreased p.o. intake, blood sugar instability, poor sleep, tingling of the extremities. 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 [IgA] (ICD-10) Mild cognitive impairment ?G31.84 - Mild cognitive impairment of uncertain or unknown etiology (ICD-10) ADHD ?F90.9 - Attention-deficit hyperactivity disorder, unspecified type (ICD-10) Bipolar disorder ?F31.9 - Bipolar disorder, unspecified (ICD-10) 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 (ICD-10) Hyperparathyroidism due to renal insufficiency ?N25.81 - Secondary hyperparathyroidism of renal origin (ICD-10) Pulmonary emboli ?I26.99 - Other pulmonary embolism without acute cor pulmonale (ICD-10) Suicidal ideation ?R45.851 - Suicidal ideations (ICD-10) Suicide attempt ?T14.91XA - Suicide attempt, initial encounter (ICD-10) Chronic kidney disease, stage IV (severe) ?N18.4 - Chronic kidney disease, stage 4 (severe) (ICD-10) Morbid obesity with BMI of 45.0-49.9, adult ?E66.01 - Morbid (severe) obesity due to excess calories (ICD-10) ?Z68.42 - Body mass index [BMI] 45.0-49.9, adult (ICD-10) Asthma ?J45.909 - Unspecified asthma, uncomplicated (ICD-10) DEBRA (obstructive sleep apnea) ?G47.33 - Obstructive sleep apnea (adult) (pediatric) (ICD-10) Kidney disease ?N28.9 - Disorder of kidney and ureter, unspecified (ICD-10) GERD (gastroesophageal reflux disease) ?K21.9 - Gastro-esophageal reflux disease without esophagitis (ICD-10) Renal failure ?N19 - Unspecified kidney failure (ICD-10) Type 2 diabetes mellitus ?E11.9 - Type 2 diabetes mellitus without complications (ICD-10) 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 - Mild intellectual disabilities (ICD-10) History of reactive attachment disorder ?Z86.59 - Personal history of other mental and behavioral disorders (ICD-10) Oppositional defiant disorder ?F91.3 - Oppositional defiant disorder (ICD-10) Pervasive developmental disorder ?F84.9 - Pervasive developmental disorder, unspecified (ICD-10) Intermittent explosive disorder ?F63.81 - Intermittent explosive disorder (ICD-10) Mood disorder ?F39 - Unspecified mood [affective] disorder (ICD-10) PTSD (post-traumatic stress disorder) ?F43.10 - Post-traumatic stress disorder, unspecified (ICD-10) Surgical History History of tonsillectomy and adenoidectomy ?Z90.89 - Acquired absence of other organs (ICD-10) History of appendectomy ?Z90.49 - Acquired absence of other specified parts of digestive tract (ICD- 10) Social History Smoking Status: Never smoker Do you use any of these nicotine containing products: None Second hand tobacco smoke exposure: No How often do you have a drink containing alcohol: never AUDIT-C Alcohol total score: 0 Non-prescribed substance use: denies use service: No Exam Narrative: Exam Narrative: Obese patient in no acute distress. Cooperative. Normal mood, flat affect. Speech slightly slurred. HEENT: Normocephalic atraumatic. Pupils are equally round reactive to light. Extraocular muscles are intact. Conjunctivae are moist without any icterus noted, slight injection bilaterally.. Moist mucous membranes. Posterior pharynx is normal. Neck is supple. Cardiovascular: Heart is regular rate and rhythm S1 and S2 are present without any murmurs. Lungs: Clear to auscultation bilaterally no wheezes rhonchi or rales are appreciated. Patient takes deep breaths without any discomfort. Abdomen: Soft and nondistended with normal bowel sounds. No guarding or rebound. No masses or organomegaly appreciated. Complains of tenderness with light touch across the entire abdominal wall. Abdominal wall has areas of scarring from previous surgeries. Extremities: Bilateral lower extremities are without edema. Normal DP and PT pulses. Patient has a fistula on the right upper arm. She does have some swelling of the right ankle present. She groans in pain with touch to the right ankle. I can examine her knee without discomfort. I can palpate thigh and lower leg without significant discomfort exhibited by the patient. She moves both legs at the hips without significant discomfort noted. Skin: Well perfused without any obvious rashes. Const: Vital Signs, click to edit/add: Vital Signs - 24 hr 06/29/23 17:22 06/29/23 19:22 Temperature 97.6 F Pulse Rate [Pulse Oximeter] 105 H 78 Respiratory Rate 20 20 Blood Pressure [Le ft Upper Arm] 148/93 H 131/99 H Pulse Oximetry 95 98 Oxygen Delivery Me thod Room Air Room Air Course Course Hospital Course: IV was established and fluids were started. Labs were drawn. X-ray of the ankle was done, read by me, does not show any acute bony abnormality. Lab work was nonspecific. She has chronic renal failure, her creatinine today is better than it was previously. She does not have an elevated white cell count, her anemia is stable with a hemoglobin of 11.2. LFTs are normal. Urinalysis that showed 3+ protein which is above her baseline of generally 1+ protein. She does have an elevated CRP which is nonspecific. CRP has been elevated in the past, however today is the highest it has been. Patient remained hemodynamically stable while here. She is not febrile, she is not tachycardic after initial review. She has a normal blood pressure and she is not hypoxic. We were not able to do a lactate as the lactate analyzer was down. Vital Signs Vital signs: Initial Vital Signs Temperature 97.6 F 06/29/23 17:22 Temperature Source Temporal Artery Scan 06/29/23 17:22 Pulse Rate 105 H 06/29/23 17:22 Respiratory Rate 20 06/29/23 17:22 Blood Pressure 148/93 H 06/29/23 17:22 Blood Pressure Mean 111 H 06/29/23 17:22 Blood Pressure Position Semi-Fowlers 06/29/23 17:22 Pulse Oximetry 95 06/29/23 17:22 Oxygen Delivery Method Room Air 06/29/23 17:22 Vital Signs Temperature 97.6 F 06/29/23 17:22 Pulse Rate 105 H 06/29/23 17:22 Respiratory Rate 20 06/29/23 17:22 Blood Pressure 148/93 H 06/29/23 17:22 Pulse Oximetry 95 06/29/23 17:22 Oxygen Delivery Method Room Air 06/29/23 17:22 Temperature 97.6 F 06/29/23 17:22 Pulse Rate 78 06/29/23 19:22 Respiratory Rate 20 06/29/23 19:22 Blood Pressure 131/99 H 06/29/23 19:22 Pulse Oximetry 98 06/29/23 19:22 Oxygen Delivery Method Room Air 06/29/23 19:22 Medical Decision Making MDM Narrative Medical decision making narrative: 28-year-old female with very complicated medical history presenting with leg pain. I did review her notes and she had similar complaints at her last visit. X-ray was done at that time as well and no abnormalities were found. She does have some swelling noted-she could have sprained it at some point in time were she could have swelling due to renal failure. At this time patient will be transferred back to the long term, follow-up recommended with her primary care and specialist team. Medical Records Medical records reviewed: Yes I reviewed the patient's medical records Lab Data Lab results reviewed: Yes I reviewed the patient's lab results Labs: Lab Results 06/29/23 06/29/23 Range/Units 18:15 18:35 WBC 8.17 (4.50-11.00) K/uL RBC 3.80 L (4.00-5.20) m/uL Hgb 11.2 L (12.0-16.0) gm/dL Hct 35.6 (33.0-51.0) % MCV 94 (80-100) fL MCH 30 (26-34) pg MCHC 32 (32-36) gm/dL RDW Coeff of Moshe 18.0 H (11.5-15.5) % Plt Count 152 (140-440) K/uL Neut % (Auto) 54.0 (42.0-72.0) % Lymph % (Auto) 22.9 (20-44) % Mitchell % (Auto) 19.6 H (0.0-11.0) % Eos % (Auto) 1.7 (0.0-7.0) % Baso % (Auto) 0.1 (0.0-3.0) % Neut # (Auto) 4.41 (1.7-7.0) K/uL Lymph # (Auto) 1.87 (0.90-2.90) K/uL Mitchell # (Auto) 1.60 H (0.00-0.90) K/UL Eos # (Auto) 0.14 (0.00-0.50) K/uL Baso # (Auto) 0.01 (0.00-0.30) K/uL Abs Immat Gran (auto) 0.14 (0.00-0.30) K/uL Imm/Tot Granulo (auto) 1.7 % Sodium 140 (135-149) mmol/L Potassium 3.5 L (3.6-5.1) mmol/L Chloride 103 (96-114) mmol/L Carbon Dioxide 27 (20-32) mmol/L BUN 16 (5-24) mg/dL Creatinine 2.7 H (0.5-1.5) mg/dL Estimated Creat Clear 29.56 Estimated GFR 24 ml/min Glucose 163 H (60-115) mg/dL Lactate 1.1 (0.5-1.9) mmol/L Calcium 9.8 (8.4-10.6) mg/dL Total Bilirubin 1.0 (0.1-1.5) mg/dL Direct Bilirubin 0.5 (0.0-0.5) mg/dL AST 33 (12-35) U/L ALT 30 (4-35) U/L Alkaline Phosphatase 93 (40-150) U/L C-Reactive Protein 16.5 H (0.5-1.0) mg/dL Total Protein 7.8 (6.0-8.3) g/dL Albumin 3.7 (3.3-5.0) g/dL Lipase 155 (23-300) U/L Urine Color Yellow (Yellow) Urine Appearance Clear (Clear) Urine pH 7.0 (5.0-8.5) Ur Specific [place] 1.010 (1.000-1.030) Urine Protein 3+ A (Negative) Urine Glucose (UA) Negative (Negative) Urine Ketones Negative (Negative) Urine Blood Trace-intact A (Negative) Urine Nitrite Negative (Negative) Urine Bilirubin Negative (Negative) Urine Urobilinogen 0.2 (0.2-1.0) Ur Leukocyte Esterase Negative (Negative) Urine RBC 0-2 (0-2) Urine WBC 0-2 (0-5) Ur Squamous Epith Cells Few (None-Few) Urine Bacteria None (None) Imaging Data ankle xray: Attestation: I have reviewed the pertinent imaging results. Radiologist's impression: Three views of the right ankle, nonweightbearing Comparison: Right ankle radiograph on May 15, 2023 Findings: No acute fracture. Normal alignment with congruent ankle mortise on nonweightbearing view. Minimal soft tissue swelling about the ankle. Tiny plantar calcaneal enthesophyte. No radiopaque foreign body. Impression: No acute fracture. Discharge Plan Discharge Clinical Impression: Leg pain Patient Disposition: Home w/ Parent or Adult Condition: Stable Additional Instructions: No evidence of new or acute problems causing her symptoms were found in the ER today. Recommend she follow up with her medical team as needed. Okay to continue to wrap the right lower extremity in a Derrek wrap to provide comfort and stability as she does have mild swelling of that ankle. One of her inflammatory markers is elevated today, patient should be monitored to make sure she does not develop any new symptoms such as vomiting or fevers Prescriptions: No Action triamcinolone acetonide 0.1 % cream 1 applic topical QDAY PRN (Reason: chest scars) ciprofloxacin HCl 0.3 % drops See Rx Instructions ophthalmic (eye) .COMPLEX Qty: 10 0RF Rx Instructions: put 1-2 drps in affected eye(s) every 2hr up to 8 times/day x2days; then 4 times/day x5days ophthalmic (eye) albuterol sulfate [Ventolin HFA] 90 mcg/actuation HFA aerosol inhaler 1 inh inhalation Q4H PRN emollient [Vanicream] Cream 1 applic topical Q6H PRN polyethylene glycol 3350 [Gavilax] 17 gram/dose powder 17 g PO BID PRN Incruse Ellipta 62.5 mcg/actuation blister with device 1 inh INHALATION DAILY hyoscyamine sulfate [Levsin] 0.125 mg tablet 0.125 mg PO Q4-6H PRN Rx Instructions: 1-2tabs prn icosapent ethyl [Vascepa] 1 gram capsule 1 g PO BID sennosides-docusate sodium [Senexon-S] 8.6-50 mg tablet 1 tab-cap PO BID albuterol sulfate 2.5 mg /3 mL (0.083 %) solution for nebulization 2.5 mg inhalation Q4H PRN fluticasone propion-salmeterol [Advair Diskus] 100-50 mcg/dose blister with device 1 inh inhalation BID incruse elpt 12XD Patient Comments: 1 puff BID gabapentin 300 mg capsule 300 mg PO Q12H clozapine 100 mg tablet 100 mg PO BID montelukast [Singulair] 10 mg tablet 10 mg PO QHS divalproex 500 mg tablet extended release 24 hr 1,000 mg PO BID atorvastatin 40 mg tablet 40 mg PO DAILY olanzapine 5 mg tablet 5 mg PO Q4H PRN Patient Comments: am (DME) Accu-Chek Guide test strips Strip MISCELLANEOUS Patient Comments: USE TO TEST TWICE DAILY tramadol 50 mg tablet 50 mg PO BID PRN acetaminophen 500 mg tablet 500 mg PO BID PRN levothyroxine 100 mcg tablet 100 mcg PO DAILY (DME) lancets [Accu-Chek Fastclix Lancet Drum] Misc MISCELLANEOUS Patient Comments: USE DIRECTED amlodipine 10 mg tablet 10 mg PO DAILY calcium carbonate [Calcium Antacid] 200 mg calcium (500 mg) tablet,chewable 500 mg PO BID PRN fluoxetine 10 mg capsule 30 mg PO DAILY olanzapine 15 mg tablet 15 mg PO HS gabapentin 100 mg capsule 300 mg PO DAILY epinephrine 0.3 mg/0.3 mL auto-injector 0.3 mg IM DAILY PRN fluticasone propion-salmeterol [Advair Diskus] 100-50 mcg/dose blister with device 1 inh INHALATION Q12H albuterol sulfate 90 mcg/actuation HFA aerosol inhaler 1 - 2 puff INHALATION TID PRN loratadine [Allergy Relief (loratadine)] 10 mg tablet 10 mg PO DAILY cholecalciferol (vitamin D3) 25 mcg (1,000 unit) capsule 25 mcg PO DAILY cyclobenzaprine 5 mg tablet 5 mg PO Q8H PRN Trulicity 1.5 mg/0.5 mL pen injector 1.5 mg SUBCUT QWEEK pantoprazole 40 mg tablet,delayed release (DR/EC) 40 mg PO DAILY sucralfate 1 gram tablet 1 g PO BID urea 20 % cream 1 applic TOPICAL DAILY melatonin 5 mg capsule 5 mg PO HS PRN calcitriol 0.25 mcg capsule 0.25 mcg PO DAILY glycerin (adult) [Fleet Glycerin (Adult)] Suppository 1 supp [place] DAILY PRN propranolol 60 mg tablet 60 mg PO QHS Patient Comments: hold if pulse is below 65 clozapine 50 mg tablet 125 mg BID (DME) Walker- 2 Wheels Misc See Rx Instructions .Route Qty: 1 0RF Rx Instructions: As directed Follow Up/Referrals: Provider,Not a Local [Primary Care Provider] - Stand Alone Forms: [facility]
[2023-06-29 18:25] LABS: Basophils Absolute Auto 0.01 K/uL (0.00-0.30); Basophils Percent Auto 0.1 % (0.0-3.0); Eosinophils Absolute Auto 0.14 K/uL (0.00-0.50); Eosinophils Percent Auto 1.7 % (0.0-7.0); Hematocrit 35.6 % (33.0-51.0); Hemoglobin* 11.2 gm/dL (12.0-16.0); Immature Granulocytes Abs Auto 0.14 K/uL (0.00-0.30); Immature Granulocytes Pct Auto 1.7 %; Lymphocytes Absolute Auto 1.87 K/uL (0.90-2.90); Lymphocytes Percent Auto 22.9 % (20-44); Mean Corpuscular HGB Conc 32 gm/dL (32-36); Mean Corpuscular Hemoglobin 30 pg (26-34); Mean Corpuscular Volume 94 fL (80-100); Monocytes Percent Auto 19.6 % (0.0-11.0); Neutrophils Absolute Auto 4.41 K/uL (1.7-7.0); Platelet Count* 152 K/uL (140-440); White Blood Count* 8.17 K/uL (4.50-11.00)
[2023-06-29 18:36] LABS: Slide Review Reflex No
[2023-06-29 18:46] LABS: Appearance Urine Clear (Clear); Bilirubin Urine Negative (Negative); Blood Urine Trace-intact (Negative); Color Urine Yellow (Yellow); Glucose Urine Negative (Negative); Ketones Urine Negative (Negative); Leukocyte Esterase Urine Negative (Negative); Nitrite Urine Negative (Negative); Protein Urine 3+ (Negative); Urobilinogen Urine 0.2 (0.2-1.0)
[2023-06-29 18:48] LABS: Lactate* 1.1 mmol/L (0.5-1.9)
[2023-06-29 18:54] LABS: RBC Urine 0-2 (0-2); Squamous Epithelial Cell Urine Few (None-Few); WBC Urine 0-2 (0-5)
--- NOTE | 2023-06-29 19:00 | ED.NURSE ---
pt asking for food and drink since she got here, states feels like her blood sugar is dropping. pt drank juice. also c/o nausea, asking for pop, pt drinking pop.
[2023-06-29 19:03] LABS: Albumin* 3.7 g/dL (3.3-5.0)
[2023-06-29 19:04] LABS: Chloride* 103 mmol/L (96-114); Potassium* 3.5 mmol/L (3.6-5.1); Sodium* 140 mmol/L (135-149)
[2023-06-29 19:06] LABS: Alanine Aminotransferase* 30 U/L (4-35); Alkaline Phosphatase* 93 U/L (40-150); Aspartate Amino Transferase* 33 U/L (12-35); Bilirubin Direct* 0.5 mg/dL (0.0-0.5); Lipase* 155 U/L (23-300); Total Protein* 7.8 g/dL (6.0-8.3)
[2023-06-29 19:07] LABS: Creatinine* 2.7 mg/dL (0.5-1.5); Est. Creatinine Clearance* 29.56; Estimated Glomerular Filt Rate 24 ml/min
[2023-06-29 19:08] LABS: Blood Urea Nitrogen* 16 mg/dL (5-24); Calcium* 9.8 mg/dL (8.4-10.6); Carbon Dioxide* 27 mmol/L (20-32); Glucose* 163 mg/dL (60-115)
--- NOTE | 2023-06-29 19:21 | ED.NURSE ---
pt states pain not any better, requesting feet be soaked. offered pt ice, declined. offered to reposition and elevate R foot on pillow which pt agreeable.
[2023-06-29 19:22] VITALS: BP 131/99; PULSE 78; RESP 20; O2SAT 98
[2023-06-29 19:30] LABS: C Reactive Protein* 16.5 mg/dL (0.5-1.0)
--- NOTE | 2023-06-29 19:33 | ED.NURSE ---
wrapped r ankle with priscilla wrap. called [facility] who will come and pick pt up
--- NOTE | 2023-06-29 20:02 | ED.NURSE ---
[facility] here picking pt up. pt brought to van via wheelchair. they brought hard sole shoe pt is suppose to wear and placed on her.
[2023-06-29 20:36] LABS: Ur HCG Qualitative* Negative (Negative)
== END 2023-06-29 20:05 | disposition home or self-care (01) ==
PROVIDERS: Emergency Provider Family Medicine
DX: M79.604 Pain in right leg (principal)
CPT/HCPCS: 36415; 73610; 80048; 80076; 81001; 81025; 83605; 83690; 85025; 86140; 87086; 99284

== ENCOUNTER 2023-07-02 10:26 | Outpatient (CLI) | payer MEDICARE, OTHER, SELFPAY | END 2023-07-02 10:27 | disposition home or self-care (01) | LOC: AMB 07-05 06:57 | PROVIDERS: Visit Provider Student in an Organized Health Care Education/Training Program | DX: R22.41 Localized swelling, mass and lump, right lower limb (principal); R53.1 Weakness | CPT/HCPCS: A0425; A0429 ==

== ENCOUNTER 2023-07-02 10:51 | Emergency (ER) | payer MEDICARE, OTHER, SELFPAY ==
[2023-07-02 11:02] VITALS: BP 122/89; PULSE 106; RESP 20; TEMP 35.9; O2SAT 96
--- NOTE | 2023-07-02 13:19 | CRLHL7_ITS ---
For Patients: As a result of the Century Cures Act, medical imaging exams and procedure reports are released immediately into your electronic medical record. You may view this report before your referring provider. If you have questions, please contact your health care provider. Indication: Pain. Technique: Right foot, 3 views. Comparison: None. Findings: Bones: Alignment is normal. No fractures or bone lesions. Joint spaces: Unremarkable. Soft tissues: Soft tissue swelling surrounding the foot.. Impression: No sign of acute injury. Dictated by Torri Glover MD @ 07/02/2023 3:25:52 PM (Electronically Signed)
--- NOTE | 2023-07-02 13:20 | ED_ITS ---
HPI - General Adult General Time Seen by Provider: 13:20 Date Seen: 07/02/23 Chief complaint: Extremity Pain/Injury, Lower Stated complaint: R foot injury Time Seen by Provider: 07/02/23 13:11 Source: patient and RN notes reviewed Mode of arrival: ambulatory Limitations: no limitations History of Present Illness HPI narrative: Patti is a 28-year-old female resident a local half-way coming in with ongoing right foot and ankle pain. She was just in on June 29, did have x-ray of the right ankle and labs. C-reactive protein was elevated at that time, does have a history of this being elevated. Gated does suffer from chronic kidney disease and does not meet criteria for kidney transplantation yet. 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 There is no acute injury with her pain at this time. She did have left ankle and foot pain in September 2022 after an injury. I did see her on 05/15/2023 for increased somnolence. Patti does have severe obstructive sl eep apnea and was having difficulty with her BiPAP, was found to be hypercapnic at that time, also complained of right foot and ankle pain at that time. She had negative right ankle x-ray at that time. They note currently she has been having swelling of this foot, increasing complaint of pain and states she can not walk on it due to pain. They did try tramadol last week. She is not chronically anticoagulated and there is reported history of pulmonary embolism. There are not complaints of shortness of breath or chest pain at this time. Onset (ago): day(s) Related Data Home Medications Medication Instructions Recorded Confirmed acetaminophen 500 mg tablet 500 mg PO BID PRN 05/27/22 05/18/23 albuterol sulfate 90 mcg/actuation 1 - 2 puff inhalation TID PRN 05/27/22 05/18/23 aerosol inhaler amlodipine 10 mg tablet 10 mg PO DAILY 05/27/22 05/18/23 atorvastatin 40 mg tablet 40 mg PO DAILY 05/27/22 05/18/23 blood sugar diagnostic (Accu-Chek 05/27/22 05/18/23 Guide test strips) calcium carbonate 200 mg calcium 500 mg PO BID PRN 05/27/22 05/18/23 (500 mg) chewable tablet (Calcium Antacid) cholecalciferol (vitamin D3) 25 25 mcg PO DAILY 05/27/22 05/18/23 mcg (1,000 unit) capsule cyclobenzaprine 5 mg tablet 5 mg PO Q8H PRN 05/27/22 05/18/23 dulaglutide 1.5 mg/0.5 mL 1.5 mg subcut QWEEK 05/27/22 05/18/23 subcutaneous pen injector (Trulicity) epinephrine 0.3 mg/0.3 mL 0.3 mg IM DAILY PRN 05/27/22 05/18/23 injection, auto-injector fluoxetine 10 mg capsule 30 mg PO DAILY 05/27/22 05/18/23 fluticasone 100 mcg-salmeterol 50 1 inh inhalation Q12H 05/27/22 05/18/23 mcg/dose blistr powdr for inhalation (Advair Diskus) gabapentin 100 mg capsule 300 mg PO DAILY 05/27/22 05/18/23 lancets (Accu-Chek Fastclix Lancet 05/27/22 05/18/23 Drum) levothyroxine 100 mcg tablet 100 mcg PO DAILY 05/27/22 05/18/23 loratadine 10 mg tablet (Allergy 10 mg PO DAILY 05/27/22 05/18/23 Relief (loratadine)) olanzapine 15 mg tablet 15 mg PO HS 05/27/22 05/18/23 olanzapine 5 mg tablet 5 mg PO Q4H PRN 05/27/22 05/18/23 tramadol 50 mg tablet 50 mg PO BID PRN 05/27/22 05/18/23 melatonin 5 mg capsule 5 mg PO HS PRN 06/14/22 05/18/23 pantoprazole 40 mg tablet,delayed 40 mg PO DAILY 06/14/22 05/18/23 release sucralfate 1 gram tablet 1 g PO BID 06/14/22 05/18/23 urea 20 % topical cream 1 applic topical DAILY 06/14/22 05/18/23 calcitriol 0.25 mcg capsule 0.25 mcg PO DAILY 08/16/22 05/18/23 glycerin (adult) (Fleet Glycerin 1 supp [place] DAILY PRN 08/16/22 05/18/23 (Adult) rectal suppository) albuterol sulfate 90 mcg/actuation 1 inh inhalation Q4H PRN 09/20/22 05/18/23 aerosol inhaler (Ventolin HFA) emollient (Vanicream topical) 1 applic topical Q6H PRN 09/20/22 05/18/23 hyoscyamine sulfate 0.125 mg 0.125 mg PO Q4-6H PRN 09/20/22 05/18/23 tablet (Levsin) polyethylene glycol 3350 17 17 g PO BID PRN 09/20/22 05/18/23 gram/dose oral powder (Gavilax) umeclidinium 62.5 mcg/actuation 1 inh inhalation DAILY 09/20/22 05/18/23 blister powder for inhalation (Incruse Ellipta) albuterol sulfate 2.5 mg/3 mL 2.5 mg inhalation Q4H PRN 10/08/22 05/18/23 (0.083 %) solution for nebulization sennosides 8.6 mg-docusate sodium 1 tab-cap PO BID 10/08/22 05/18/23 50 mg tablet (Senexon-S) icosapent ethyl 1 gram capsule 1 g PO BID 12/10/22 05/18/23 (Vascepa) triamcinolone acetonide 0.1 % 1 applic topical QDAY PRN chest 12/10/22 05/18/23 topical cream scars clozapine 50 mg tablet 125 mg BID 01/21/23 05/18/23 clozapine 100 mg tablet 100 mg PO BID 01/26/23 05/18/23 divalproex 500 mg tablet,extended 1,000 mg PO BID 01/26/23 05/18/23 release 24 hr fluticasone 100 mcg-salmeterol 50 1 inh inhalation BID 01/26/23 05/18/23 mcg/dose blistr powdr for inhalation (Advair Diskus) gabapentin 300 mg capsule 300 mg PO Q12H 01/26/23 05/18/23 incruse elpt 12XD 01/26/23 05/18/23 montelukast 10 mg tablet 10 mg PO QHS 01/26/23 05/18/23 (Singulair) propranolol 60 mg tablet 60 mg PO QHS 05/18/23 05/18/23 Previous Rx's Medication Instructions Recorded ciprofloxacin HCl 0.3 % eye drops See Rx Instructions ophthalmic 12/24/22 (eye) .COMPLEX #10 mL Walker- 2 Wheels #1 ea 03/19/23 prednisone 20 mg tablet 20 mg PO BID #10 tabs 07/02/23 Allergies Allergy/AdvReac Type Severity Reaction Status Date / Time lithium Allergy Severe Verified 05/18/23 10:34 ziprasidone [From Geodon] Allergy Severe Anaphylaxis Verified 05/18/23 10:34 amoxicillin Allergy Intermediate Hives Verified 05/18/23 10:34 Penicillins Allergy Intermediate Hives Verified 05/18/23 10:34 pineapple Allergy Intermediate Hives Verified 05/18/23 10:34 amantadine [From Symmetrel] AdvReac Intermediate sedation Verified 05/18/23 10:34 NSAIDS (Non-Steroidal AdvReac Intermediate Verified 05/18/23 10:34 Anti-Inflamma Review of Systems Status of ROS: Reports: 6 or more systems reviewed and unremarkable except as noted in History and below [facility] Medical History History of pulmonary embolism ?Z86.711 - Personal history of pulmonary embolism (ICD-10) Conjunctivitis ?H10.9 - Unspecified conjunctivitis (ICD-10) Hyperlipidemia ?E78.5 - Hyperlipidemia, unspecified (ICD-10) Allergic rhinitis due to pollen ?J30.1 - Allergic rhinitis due to pollen (ICD-10) Hypercoagulopathy ?D68.59 - Other primary thrombophilia (ICD-10) Autism ?F84.0 - Autistic disorder (ICD-10) Anxiety ?F41.9 - Anxiety disorder, unspecified (ICD-10) 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 [IgA] (ICD-10) Mild cognitive impairment ?G31.84 - Mild cognitive impairment of uncertain or unknown etiology (ICD-10) ADHD ?F90.9 - Attention-deficit hyperactivity disorder, unspecified type (ICD-10) Bipolar disorder ?F31.9 - Bipolar disorder, unspecified (ICD-10) 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 (ICD-10) Hyperparathyroidism due to renal insufficiency ?N25.81 - Secondary hyperparathyroidism of renal origin (ICD-10) Pulmonary emboli ?I26.99 - Other pulmonary embolism without acute cor pulmonale (ICD-10) Suicidal ideation ?R45.851 - Suicidal ideations (ICD-10) Suicide attempt ?T14.91XA - Suicide attempt, initial encounter (ICD-10) Chronic kidney disease, stage IV (severe) ?N18.4 - Chronic kidney disease, stage 4 (severe) (ICD-10) Morbid obesity with BMI of 45.0-49.9, adult ?E66.01 - Morbid (severe) obesity due to excess calories (ICD-10) ?Z68.42 - Body mass index [BMI] 45.0-49.9, adult (ICD-10) Asthma ?J45.909 - Unspecified asthma, uncomplicated (ICD-10) DEBRA (obstructive sleep apnea) ?G47.33 - Obstructive sleep apnea (adult) (pediatric) (ICD-10) Kidney disease ?N28.9 - Disorder of kidney and ureter, unspecified (ICD-10) GERD (gastroesophageal reflux disease) ?K21.9 - Gastro-esophageal reflux disease without esophagitis (ICD-10) Renal failure ?N19 - Unspecified kidney failure (ICD-10) Type 2 diabetes mellitus ?E11.9 - Type 2 diabetes mellitus without complications (ICD-10) 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 - Mild intellectual disabilities (ICD-10) History of reactive attachment disorder ?Z86.59 - Personal history of other mental and behavioral disorders (ICD-10) Oppositional defiant disorder ?F91.3 - Oppositional defiant disorder (ICD-10) Pervasive developmental disorder ?F84.9 - Pervasive developmental disorder, unspecified (ICD-10) Intermittent explosive disorder ?F63.81 - Intermittent explosive disorder (ICD-10) Mood disorder ?F39 - Unspecified mood [affective] disorder (ICD-10) PTSD (post-traumatic stress disorder) ?F43.10 - Post-traumatic stress disorder, unspecified (ICD-10) Surgical History History of tonsillectomy and adenoidectomy ?Z90.89 - Acquired absence of other organs (ICD-10) History of appendectomy ?Z90.49 - Acquired absence of other specified parts of digestive tract (ICD- 10) Social History Smoking Status: Never smoker Do you use any of these nicotine containing products: None Second hand tobacco smoke exposure: No How often do you have a drink containing alcohol: never AUDIT-C Alcohol total score: 0 Non-prescribed substance use: denies use service: No Exam Const: Vital Signs, click to edit/add: Vital Signs - 24 hr 07/02/23 11:02 07/02/23 13:24 07/02/23 15:53 Temperature 96.6 F L 96.4 F L Pulse Rate [Pulse Oximeter] 106 H 100 103 H Respiratory Rate 20 20 18 Blood Pressure [Le ft Upper Arm] 122/89 137/106 H 136/103 H Pulse Oximetry 96 96 96 Oxygen Delivery Me thod Room Air Room Air Room Air Sitting in a wheelchair, leaning forward on a pillow. Is leaning with her head forward but arouses quite easily and will lift her head up when requested to. Sclera clear, extraocular muscles intact. Face atraumatic. Speech is normal when she talks. Neck is thick but no masses, no tenderness. Lungs are clear to auscultation, no wheezing or crackles. CV regular rate and rhythm no murmur. Patient is morbidly obese. Has chronically thickened lower extremities but do note significant swelling of the dorsum of her right foot with petechial hemorrhages. She is painful when I palpate over the midfoot as well as the ankle. Seems to have normal sensation. The toes are warm and normal cap refill. The swelling of the dorsum of the foot is quite notable at this time. Documenting provider has reviewed patient's vital signs: yes Course Course Hospital Course: One of the care providers is in attendance with patient. Reviewed with her that I do wonder if this could be gouty arthropathy given her chronic kidney disease. C reactive protein was elevated at last visit. We are going to recheck labs, will do a foot x-ray at this time, we will do a venous ultrasound of this right lower extremity to rule out thromboembolic disease. Examination does not appear to be in line with any cellulitis or infectious etiology. Reevaluation(s) Time of Reevaluation #1: 16:00 Reevaluation #1: Reviewed with patient and the new care provider that is here with her that I believe she probably has gout. Ultrasound is negative for DVT. Uric acid is quite elevated, C reactive protein is quite elevated. I see no evidence of cellulitis. She does have chronic kidney disease which does put her at increased risk for gout. Discussed treatment with prednisone. They do have more tramadol at home. When she is done with the prednisone, will have them contact her primary care provider or the parts salesman to discuss gout prophylaxis. Vital Signs Vital signs: Initial Vital Signs Temperature 96.6 F L 07/02/23 11:02 Temperature Source Temporal Artery Scan 07/02/23 11:02 Pulse Rate 106 H 07/02/23 11:02 Pulse Rhythm Regular 07/02/23 11:02 Respiratory Rate 20 07/02/23 11:02 Blood Pressure 122/89 07/02/23 11:02 Blood Pressure Mean 100 07/02/23 11:02 Blood Pressure Position Sitting 07/02/23 11:02 Pulse Oximetry 96 07/02/23 11:02 Oxygen Delivery Method Room Air 07/02/23 11:02 Vital Signs Temperature 96.6 F L 07/02/23 11:02 Pulse Rate 106 H 07/02/23 11:02 Respiratory Rate 20 07/02/23 11:02 Blood Pressure 122/89 07/02/23 11:02 Pulse Oximetry 96 07/02/23 11:02 Oxygen Delivery Method Room Air 07/02/23 11:02 Temperature 96.4 F L 07/02/23 13:24 Pulse Rate 103 H 07/02/23 15:53 Respiratory Rate 18 07/02/23 15:53 Blood Pressure 136/103 H 07/02/23 15:53 Pulse Oximetry 96 07/02/23 15:53 Oxygen Delivery Method Room Air 07/02/23 15:53 Medical Decision Making Lab Data Lab results reviewed: Yes I reviewed the patient's lab results Labs: Lab Results 07/02/23 Range/Units 14:04 WBC 7.71 (4.50-11.00) K/uL RBC 3.82 L (4.00-5.20) m/uL Hgb 11.2 L (12.0-16.0) gm/dL Hct 36.1 (33.0-51.0) % MCV 95 (80-100) fL MCH 29 (26-34) pg MCHC 31 L (32-36) gm/dL RDW Coeff of Moshe 17.5 H (11.5-15.5) % Plt Count 147 (140-440) K/uL Neut % (Auto) 65.5 (42.0-72.0) % Lymph % (Auto) 20.2 (20-44) % [place] % (Auto) 10.5 (0.0-11.0) % Eos % (Auto) 1.3 (0.0-7.0) % Baso % (Auto) 0.3 (0.0-3.0) % Neut # (Auto) 5.05 (1.7-7.0) K/uL Lymph # (Auto) 1.56 (0.90-2.90) K/uL [place] # (Auto) 0.80 (0.00-0.90) K/UL Eos # (Auto) 0.10 (0.00-0.50) K/uL Baso # (Auto) 0.02 (0.00-0.30) K/uL Abs Immat Gran (auto) 0.17 (0.00-0.30) K/uL Imm/Tot Granulo (auto) 2.2 % Sodium 138 (135-149) mmol/L Potassium 4.3 (3.6-5.1) mmol/L Chloride 100 (96-114) mmol/L Carbon Dioxide 23 (20-32) mmol/L BUN 26 H (5-24) mg/dL Creatinine 2.8 H (0.5-1.5) mg/dL Estimated GFR 23 ml/min Glucose 195 H (60-115) mg/dL Uric Acid 15.1 H (2.2-8.4) mg/dL Calcium 10.2 (8.4-10.6) mg/dL C-Reactive Protein 19.8 H (0.5-1.0) mg/dL Imaging Data Venous US: Attestation: I have reviewed the pertinent imaging results. Radiologist's impression: Patient: GEORGE ZAMORANO Facility:?[facility] Patient ID:?[id number] Site Patient ID:?[id number]. Site :?[id number] Study:?US Extremity Right -07/02/2023 2:47:35 PM Ordering Physician:Dominick Moore Final Report: INDICATION: PAIN, SWELLING AND REDNESS IN RLEimages: 28 TECHNIQUE: Ultrasound venous duplex right lower extremity. COMPARISON: None. FINDINGS: The right common femoral, superficial femoral, deep femoral, popliteal, posterio r tibial, and greater saphenous veins are fully compressible with normal waveforms. The contralateral left common femoral artery is fully compressible with normal waveform. No masses evident. IMPRESSION: Normal ultrasound of the right lower extremity veins. Dictated by: Arnol Strong MD @ 07/02/2023 15:21:57 (Electronic Signature) XR right foot: Attestation: I have reviewed the pertinent imaging results. My impression: No acute pathology on my preliminary review. Radiologist's impression: Patient: GEORGE ZAMORANO Facility:?[facility] Patient ID:?[id number] Site Patient ID:?[id number]. Site :?[id number] Study:?XRay Extremity Right FOOT 3 VIEWS-07/02/2023 2:27:35 PM Ordering Physician:Dominick Moore Final Report: Indication: Pain. Technique: Right foot, 3 views. Comparison: None. Findings: Bones: Alignment is normal. No fractures or bone lesions. Joint spaces: Unremarkable. Soft tissues: Soft tissue swelling surrounding the foot.. Impression: No sign of acute injury. Dictated by Torri Glover MD @ 07/02/2023 3:25:52 PM (Electronic Signature) Critical Care Time Critical Care Time Critical Care Time: No Discharge Plan Discharge Clinical Impression: Gout Patient Disposition: Home w/ Parent or Adult Condition: Stable Instructions: Low Purine Diet (ED), Gout (ED) Additional Instructions: Start prednisone and take with food. Recommend elevating this foot, using ice. Tylenol a 1000 mg 3 times a day baseline for pain. Supplement with ibuprofen per bottle directions as needed. Can use the tramadol that she has already for more severe pain. Really when the anti-inflammatory effects of the prednisone start to kick in, her pain should improve significantly. Allow ambulation as tolerated. Need to follow up with primary care provider within the next week, can discuss further recommendations for gout prophylaxis. Her uric acid was 15.1 here today, creatinine 2.8. Her C reactive protein went from 16.5 on June 29 to 19.8 today. I see no evidence of infection, white blood count was normal, ultrasound of this right lower extremity was negative for DVT. Review purine dietary handout, recommend trying to [place] avoidance of some of these foods to help prevent gout as well. Activity Level: Activity as Tolerated Prescriptions: New prednisone 20 mg tablet 20 mg PO BID Qty: 10 0RF No Action triamcinolone acetonide 0.1 % cream 1 applic topical QDAY PRN (Reason: chest scars) ciprofloxacin HCl 0.3 % drops See Rx Instructions ophthalmic (eye) .COMPLEX Qty: 10 0RF Rx Instructions: put 1-2 drps in affected eye(s) every 2hr up to 8 times/day x2days; then 4 times/day x5days ophthalmic (eye) albuterol sulfate [Ventolin HFA] 90 mcg/actuation HFA aerosol inhaler 1 inh inhalation Q4H PRN emollient [Vanicream] Cream 1 applic topical Q6H PRN polyethylene glycol 3350 [Gavilax] 17 gram/dose powder 17 g PO BID PRN Incruse Ellipta 62.5 mcg/actuation blister with device 1 inh INHALATION DAILY hyoscyamine sulfate [Levsin] 0.125 mg tablet 0.125 mg PO Q4-6H PRN Rx Instructions: 1-2tabs prn icosapent ethyl [Vascepa] 1 gram capsule 1 g PO BID sennosides-docusate sodium [Senexon-S] 8.6-50 mg tablet 1 tab-cap PO BID albuterol sulfate 2.5 mg /3 mL (0.083 %) solution for nebulization 2.5 mg inhalation Q4H PRN fluticasone propion-salmeterol [Advair Diskus] 100-50 mcg/dose blister with device 1 inh inhalation BID incruse elpt 12XD Patient Comments: 1 puff BID gabapentin 300 mg capsule 300 mg PO Q12H clozapine 100 mg tablet 100 mg PO BID montelukast [Singulair] 10 mg tablet 10 mg PO QHS divalproex 500 mg tablet extended release 24 hr 1,000 mg PO BID atorvastatin 40 mg tablet 40 mg PO DAILY olanzapine 5 mg tablet 5 mg PO Q4H PRN Patient Comments: am (DME) Accu-Chek Guide test strips Strip MISCELLANEOUS Patient Comments: USE TO TEST TWICE DAILY tramadol 50 mg tablet 50 mg PO BID PRN acetaminophen 500 mg tablet 500 mg PO BID PRN levothyroxine 100 mcg tablet 100 mcg PO DAILY (DME) lancets [Accu-Chek Fastclix Lancet Drum] [facility] [place]ISCELLANEOUS Patient Comments: USE DIRECTED amlodipine 10 mg tablet 10 mg PO DAILY calcium carbonate [Calcium Antacid] 200 mg calcium (500 mg) tablet,chewable 500 mg PO BID PRN fluoxetine 10 mg capsule 30 mg PO DAILY olanzapine 15 mg tablet 15 mg PO HS gabapentin 100 mg capsule 300 mg PO DAILY epinephrine 0.3 mg/0.3 mL auto-injector 0.3 mg IM DAILY PRN fluticasone propion-salmeterol [Advair Diskus] 100-50 mcg/dose blister with device 1 inh INHALATION Q12H albuterol sulfate 90 mcg/actuation HFA aerosol inhaler 1 - 2 puff INHALATION TID PRN loratadine [Allergy Relief (loratadine)] 10 mg tablet 10 mg PO DAILY cholecalciferol (vitamin D3) 25 mcg (1,000 unit) capsule 25 mcg PO DAILY cyclobenzaprine 5 mg tablet 5 mg PO Q8H PRN Trulicity 1.5 mg/0.5 mL pen injector 1.5 mg SUBCUT QWEEK pantoprazole 40 mg tablet,delayed release (DR/EC) 40 mg PO DAILY sucralfate 1 gram tablet 1 g PO BID urea 20 % cream 1 applic TOPICAL DAILY melatonin 5 mg capsule 5 mg PO HS PRN calcitriol 0.25 mcg capsule 0.25 mcg PO DAILY glycerin (adult) [Fleet Glycerin (Adult)] Suppository 1 supp [place] DAILY PRN propranolol 60 mg tablet 60 mg PO QHS Patient Comments: hold if pulse is below 65 clozapine 50 mg tablet 125 mg BID (DME) Walker- 2 Wheels [facility] [place] See Rx Instructions .Route Qty: 1 0RF Rx Instructions: As directed Follow Up/Referrals: Provider,Not a Local [Primary Care Provider] - Stand Alone [facility]: [facility] Info [facility]
[2023-07-02 13:24] VITALS: BP 137/106; PULSE 100; RESP 20; TEMP 35.8; O2SAT 96
--- NOTE | 2023-07-02 13:28 | CRLHL7_ITS ---
For Patients: As a result of the Century Cures Act, medical imaging exams and procedure reports are released immediately into your electronic medical record. You may view this report before your referring provider. If you have questions, please contact your health care provider. INDICATION: PAIN, SWELLING AND REDNESS IN RLEimages: 28 TECHNIQUE: Ultrasound venous duplex right lower extremity. COMPARISON: None. FINDINGS: The right common femoral, superficial femoral, deep femoral, popliteal, posterior tibial, and greater saphenous veins are fully compressible with normal waveforms. The contralateral left common femoral artery is fully compressible with normal waveform. No masses evident. IMPRESSION: Normal ultrasound of the right lower extremity veins. Dictated by: Arnol Strong MD @ 07/02/2023 15:21:57 (Electronically Signed)
[2023-07-02 14:26] LABS: Chloride* 100 mmol/L (96-114); Potassium* 4.3 mmol/L (3.6-5.1); Sodium* 138 mmol/L (135-149)
[2023-07-02 14:29] LABS: Creatinine* 2.8 mg/dL (0.5-1.5); Estimated Glomerular Filt Rate 23 ml/min
[2023-07-02 14:30] LABS: Blood Urea Nitrogen* 26 mg/dL (5-24); Carbon Dioxide* 23 mmol/L (20-32); Glucose* 195 mg/dL (60-115)
[2023-07-02 14:31] LABS: Calcium* 10.2 mg/dL (8.4-10.6); Uric Acid* 15.1 mg/dL (2.2-8.4)
[2023-07-02 15:21] LABS: Basophils Absolute Auto 0.02 K/uL (0.00-0.30); Basophils Percent Auto 0.3 % (0.0-3.0); Eosinophils Percent Auto 1.3 % (0.0-7.0); Hematocrit 36.1 % (33.0-51.0); Hemoglobin* 11.2 gm/dL (12.0-16.0); Immature Granulocytes Abs Auto 0.17 K/uL (0.00-0.30); Immature Granulocytes Pct Auto 2.2 %; Lymphocytes Absolute Auto 1.56 K/uL (0.90-2.90); Lymphocytes Percent Auto 20.2 % (20-44); Mean Corpuscular HGB Conc 31 gm/dL (32-36); Mean Corpuscular Hemoglobin 29 pg (26-34); Mean Corpuscular Volume 95 fL (80-100); Monocytes Percent Auto 10.5 % (0.0-11.0); Neutrophils Absolute Auto 5.05 K/uL (1.7-7.0); Neutrophils Percent Auto 65.5 % (42.0-72.0); Platelet Count* 147 K/uL (140-440); RDW Coefficient of Variation % 17.5 % (11.5-15.5); Red Blood Count 3.82 m/uL (4.00-5.20); Slide Review Reflex No; White Blood Count* 7.71 K/uL (4.50-11.00)
[2023-07-02 15:26] LABS: C Reactive Protein* 19.8 mg/dL (0.5-1.0)
[2023-07-02 15:53] VITALS: BP 136/103; PULSE 103; RESP 18; O2SAT 96
[2023-07-02 16:07] LABS: Erythrocyte SedimentationRate* 88 mm/hr (2-20)
== END 2023-07-02 16:26 | disposition home or self-care (01) ==
PROVIDERS: Emergency Provider Family Medicine
DX: M10.9 Gout, unspecified (principal)
CPT/HCPCS: 36415; 73630; 80048; 84550; 85025; 85651; 86140; 93971; 99284

== ENCOUNTER 2023-12-11 12:40 | Outpatient (CLI) | payer MEDICARE, OTHER, SELFPAY | END 2023-12-11 12:41 | disposition home or self-care (01) | PROVIDERS: Visit Provider Emergency Medicine | DX: R45.851 Suicidal ideations (principal) | CPT/HCPCS: A0425; A0429 ==

== ENCOUNTER 2023-12-26 20:41 | Outpatient (CLI) | payer MEDICARE, OTHER, SELFPAY ==
--- OUTSIDE RECORDS SUMMARY | 2023-12-27 07:51 | XMS_ITS | Continuity of Care Document ---
Author Name Unknown Address [address] [place], [place] [address] Phone [phone] Organization [facility] Office Address [address] [place] [address] [address] [place] [address] Care Team Providers Care Client Support Consultant Name Role Phone PHUONG ROPER Primary Care Provider Assessment Encounter Date Assessment Date Assessment LastModified by Organization Details LastModified Time 12/18/2023 12/18/2023 Nails and calluses debrided as previously documented. Patient meets criteria for ongoing nail cares and will be continually seen on a routine basis. We discussed to the patient and her staff about Subiomed. She is to follow up for Subiomed trial. Off note: Staff's number [phone] [email or web address] Not available 12/19/2023 02:27:43 Plan of Treatment Reminders Order Date Submit Date Provider Last Modified By Organization Details Last Modified Time Details Appointments [facility] 15 2023 01:15P German Carlos DPM Not available Not available Not available Lab None recorded. Referral None recorded. Procedures None recorded. Surgeries None recorded. Imaging None recorded. Medication Orders None recorded. Patient TargetsNo targets recorded. Patient InstructionsNo instructions recorded. Reason for Referral None Reported. 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; Original Code: [id number] Orig inal Codesystem: SNOMED CT Classificati on: Medical Confirm ation Status: Confirmed Not Available [facility] 3 09:05:37 Callosity Active 2021 Callosity; Original Code: [id number] Origi nal Codesystem: SNOMED CT Classificati on: Medical Confirm ation Status: Confirmed Not Available [facility] 3 09:05:37 Onychomycosis of toenails Active 2021 Onychomycosis of toenails; Original Code: [id number] Orig inal Codesystem: SNOMED CT Classificati on: Medical Confirm ation Status: Confirmed Not Available [facility] 3 09:05:37 Problem Notes None recorded. Procedures Surgical History Date Name Laterality Status Provider Name and Address Organization Details Recorded Time 12/18/19 24 NAIL/CallusDEBR IDEMENT completed John myers [facility] 12/18/2023 14:48:32 08/29/[address] Montoya completed Stan Luevano, YANELY [address] [place], [address], [facility] 08/29/2023 12:44:39 05/30/[address] Montoya completed Stan Luevano, TOMEKAM [address] [place], [address], [facility] 05/30/2023 12:37:45 02/23/[address] Ackerman completed Jigar Carlos DPM [address] [place], [address], [facility] 02/23/2023 08:15:42 10/17/20 22 Routine Foot Care completed Jigar Carlos DPM [address] [place], [address], [facility] 10/17/2022 14:39:47 10/03/[address] Montoya completed Jigar Carlos DPM [address] [place], [address], [place] - [facility] 10/03/2022 14:34:43 Imaging Results None recorded. Procedure Notes None recorded. Medical Equipment None Reported. Allergies Allergen ID Allergen Name Allergen Category Reaction Reaction Severity Criticality Documentation Date Start Date Code Code System Note Provider Name and Address Organization Details Recorded Time 70 amoxicill in medicatio n Not available Not available Not available 10/03/2022 723 RxNorm Tuyet Adnay null, [place] - [facility] 2 14:05:59 71 Geodon medicatio n Not available Not available Not available 10/03/2022 19754 4 RxNorm Tuyet Danay null, [place] - [facility] 2 14:06:11 72 lithium Not available Not available Not available Not available 10/03/2022 6448 RxNorm Tuyet Danay null, [place] - [facility] 2 14:06:21 73 Non-stero idal anti-infl ammatory agent (product) medicatio n Not available Not available Not available 10/03/2022 13256 005 SNOMED Tuyet Danay null, [place] - [facility] 2 14:06:34 74 Medicinal product containin g penicilli n and acting as antibacte rial agent (product) medicatio n Not available Not available Not available 10/03/2022 64525 05 SNOMED Tuyet Danay null, [place] - [facility] 2 14:06:49 75 pineapple extract food Not available Not available Not available 10/03/2022 66074 74 RxNorm Tuyet Danay null, [place] - [facility] 2 14:06:59 Medications Name Sig Start Date Stop Date Status Note LastModified by Organization Details LastModified Time atorvastatin 40 mg tablet active Not Available Not Available Not Available acetaminophen 325 mg tablet active Not Available Not Availabl e Not Available doxycycline hyclate 100 mg capsule active Not Available Not Available Not Available propranolol ER 160 mg capsule,24 hr,extended release active Not Available Not Available Not Available Saline Mist 0.65 % nasal spray aerosol active Not Available Not Availabl e Not Available divalproex 250 mg tablet,delayed release active Not Available Not Available Not Available ofloxacin 0.3 % eye drops active Not Available Not Available Not Available clozapine 100 mg tablet active Not Available Not Available No t Available urea 20 % topical cream active Not Available Not Availabl e Not Available hydrocodone 5 mg-acetaminoph en 325 mg tablet active Not Available Not Available Not Available sucralfate 1 gram tablet active Not Available Not Available Not Available ondansetron HCl 4 mg tablet active Not Available Not Available Not Available prednisone 20 mg tablet active Not Available Not Available No t Available propranolol ER 60 mg capsule,24 hr,extended release active Not Available Not Available Not Available olanzapine 5 mg tablet active Not Available Not Available No t Available olanzapine 10 mg tablet active Not Available Not Available No t Available Calcium Antacid 200 mg calcium (500 mg) chewable tablet active Not Available Not Available Not Available propranolol 60 mg tablet active Not Available Not Available No t Available Enema Disposable 19 gram-7 gram/118 mL active Not Available Not Available Not Available allopurinol 100 mg tablet active Not Available Not Availabl e Not Available olanzapine 2.5 mg tablet active Not Available Not Available No t Available tramadol 50 mg tablet active Not Available Not Available Not Available acetaminophen 500 mg tablet active Not Available Not Availabl e Not Available ondansetron 8 mg disintegrating tablet active Not Available Not Available Not Available levothyroxine 100 mcg tablet active Not Available Not Availab le Not Available propranolol 10 mg tablet active Not Available Not Available No t Available propranolol 40 mg tablet active Not Available Not Available No t Available famotidine 20 mg tablet active Not Available Not Available No t Available lorazepam 0.5 mg tablet active Not Available Not Available No t Available clindamycin 1 % topical gel active Not Available Not Availabl e Not Available Siltussin SA 100 mg/5 mL oral liquid active Not Available Not Available Not Available trazodone 100 mg tablet active Not Available Not Available No t Available ciprofloxacin 0.3 % eye drops active Not Available Not Available Not Available amlodipine 10 mg tablet active Not Available Not Available No t Available doxycycline monohydrate 100 mg capsule active Not Available Not Availab le Not Available cephalexin 500 mg capsule active Not Available Not Available N ot Available pantoprazole 40 mg tablet,delayed release active Not Available Not Available Not Available trazodone 150 mg tablet active Not Available Not Available No t Available tobramycin 0.3 % eye drops active Not Available Not Available Not Available nystatin 100,000 unit/gram topical cream active Not Available Not Availabl e Not Available divalproex ER 500 mg tablet,extende d release 24 hr active Not Available Not Available Not Available propranolol ER 80 mg capsule,24 hr,extended release active Not Available Not Available Not Available Ear Drops (carbamide peroxide) 6.5 % active Not Available Not Available Not Available fluoxetine 10 mg capsule active Not Available Not Available N ot Available gabapentin 300 mg capsule active Not Available Not Available N ot Available montelukast 10 mg tablet active Not Available Not Available No t Available olanzapine 15 mg tablet active Not Available Not Available No t Available gabapentin 100 mg capsule active Not Available Not Available N ot Available clozapine 25 mg tablet active Not Available Not Available No t Available propranolol ER 120 mg capsule,24 hr,extended release active Not Available Not Available Not Available lorazepam 1 mg tablet active Not Available Not Available Not Available epinephrine 0.3 mg/0.3 mL injection, auto-injector active Not Available Not Availabl e Not Available fluticasone 100 mcg-salmeterol 50 mcg/dose blistr powdr for inhalation active Not Available Not Availab le Not Available albuterol sulfate HFA 90 mcg/actuation aerosol inhaler active Not Available Not Available Not Available propranolol 20 mg tablet active Not Available Not Available No t Available haloperidol 2 mg tablet active Not Available Not Available No t Available ondansetron 4 mg disintegrating tablet active Not Available Not Available Not Available cefdinir 300 mg capsule active Not Available Not Available N ot Available fluoxetine 20 mg capsule active Not Available Not Available N ot Available fluticasone propionate 50 mcg/actuation nasal spray,suspensi on active Not Available Not Available Not Available calcitriol 0.25 mcg capsule active Not Available Not Available Not Available Artificial Tears (polyvinyl alcohol) 1.4 % eye drops active Not Available Not Available No t Available cholecalcifero l (vitamin D3) 25 mcg (1,000 unit) capsule active Not Available Not Availabl e Not Available cyclobenzaprin e 5 mg tablet active Not Available Not Availabl e Not Available Allergy Relief (loratadine) 10 mg tablet active Not Available Not Available Not Available Senna Plus 8.6 mg-50 mg tablet active Not Available Not Available Not Available Fleet Glycerin (Adult) rectal suppository active Not Available Not Available Not Available lactulose 10 gram/15 mL oral solution active Not Available Not Availabl e Not Available clozapine 50 mg tablet active Not Available Not Available No t Available cholecalcifero l (vitamin D3) 25 mcg (1,000 unit) tablet active Not Available Not Available Not Available Gavilax 17 gram/dose oral powder active Not Available Not Available Not Available Vascepa 1 gram capsule active Not Available Not Available Not Available Trulicity 1.5 mg/0.5 mL subcutaneous pen injector active Not Available Not Available Not Available Trulicity 0.75 mg/0.5 mL subcutaneous pen injector active Not Available Not Available Not Available Incruse Ellipta 62.5 mcg/actuation powder for inhalation active Not Available Not Available N ot Available Accu-Chek Guide test strips USE TO TEST ONCE DAILY active Not Available Not Available No t Available Accu-Chek Fastclix Lancet Drum USE DIRECTED active Not Available Not Available No t Available Trulicity 3 mg/0.5 mL subcutaneous pen injector active Not Available Not Available Not Available Trulicity 4.5 mg/0.5 mL subcutaneous pen injector active Not Available Not Available Not Available Vitals None Recorded Social History None recorded. Functional Status None recorded. Mental Status None recorded. Family History Nothing Reported. Medical History No medical history recorded. Gynecological HistoryNo gynecological history recorded. Obstetrics History GPAL:G 0 P 0 0 0 0 Past Encounters Encounter ID Performer Location Encounter Start Date Encounter Closed Date Diagnosis/Indication [id number] Jigar Carlos DPM [place] [facility] [address] 12/18/2023 14:16:46 12/21/2023 09:31:46 Peripheral neuropathy due to type 2 diabetes mellitus On waiting list for organ transplant Acquired pes planus of left foot Acquired pes planus of right foot Acquired hallux limitus of right great toe Acquired hallux limitus of left great toe Onychomycosis Foot callus Health Concerns Section Related Observation LastModified by Organization Detai ls LastModified Time None Recorded Concern Status LastModified by Organization Details LastModified Time None Recorded Payers Encounter Date Sequence Insurance Name Policy Number Policy Xie Covered Member ID Xie Member ID Guarantor Name 12/18/[address] [facility] (MEDICAID HMO) Elisa Jennings [id number] Elisa Jennings 12/18/2023 1 MEDICARE [place]: [employer] [facility] Elisa Jennings [id number] Elisa Jennings Notes Date Note Type Note Provider Name and Address Organization Details Recorded Time 12/18/2023 text/html HPI Notes: Tyler salinas is a 28 year old female established patient who presents with the chief complaint with care staff from the [facility]. Presents today for evaluation of problematic toenails and feet in general. They relate chronic thickening and deformity to their toenails that has not responded to self-trimming, topical [id number] anti-fungal therapy, foot soaks, and other similar conservative treatments. Nails are painful with ambulation and shoegear. Denies any recent foot injury or infection. Patient was last seen by Dr. Jaclyn Roper DO for medical management on 08/23/2023 The patient is on the kidney transplant list per medical record evaluation by Dr. Sanket DO. Claudication symptoms: No Burning symptoms: No Paresthesia: No Additionally the patient concerns about increasing neuropathy. Patient presents for further evaluation and treatment options. Jigar Carlos DPM [address] [place], [address], [facility] - [facility] 12/19/2023 09:39:49 OBGyn Episode No OBEpisode recorded.
--- OUTSIDE RECORDS SUMMARY | 2023-12-27 07:51 | XMS_ITS | Data Portability ---
Author Name Unknown Address [address] [place] [id number] Phone [phone] Organization [place] [facility], [employer] Address [address] [place] [address] Care Team Providers Care Heat Treater Name Role Phone PHUONG ROPER Primary Care Provider [phone] Assessment Encounter Date Assessment Date Assessment LastModified by Organization Details LastModified Time 10/03/2022 10/03/2022 Patient presents for of ingrown toenail. Based on history, physical exam, and prior treatments, I recommend INSERT TEXT HERE. Discussed treatment plan and instructions with patient. Orders as indicated below. [email or web address] Not available 10/03/2022 14:32:28 02/22/2023 02/22/2023 Patient seen in office today for a diabetic foot exam. Diabetes is well controlled. Abnormal findings include mycotic nails, neuropathy . Patient educated on diabetic foot complications and prevention. Discussed treatment/diagno stic plan and orders with patient as indicated below. [email or web address] Not available 02/23/2023 08:18:04 05/30/2023 05/30/2023 Nails debrided as previously documented. Patient meets criteria for ongoing nail cares and will be continually seen on a routine basis. Of note the patient's [facility] staff is interested in inserts for foot pain (patient does not relate this today), and we will send a form for her guardian to complete at this time. Not available 05/30/2023 12:40:13 08/29/2023 08/29/2023 Nails debrided as previously documented. Patient meets criteria for ongoing nail cares and will be continually seen on a routine basis. Of note the patient's [facility] staff is interested in inserts for foot pain (patient does not relate this today), and we will send a form for her guardian to complete at this time. Not available 08/29/2023 12:44:30 12/18/2023 12/18/2023 Nails and calluses debrided as previously documented. Patient meets criteria for ongoing nail cares and will be continually seen on a routine basis. We discussed to the patient and her staff about Subiomed. She is to follow up for Subiomed trial. Off note: Staff's number [phone] [email or web address] Not available 12/19/2023 02:27:43 Plan of [...] Active [address] Roper 12/19 MIGUELINA Sanders - [facility] 4 14:27:33 Acquired hallux valgus Active 2021 Acquired hallux valgus; Original Code: 199078596 Origi nal Codesystem: SNOMED CT Classificati on: Medical Confirm ation Status: Confirmed Not Available [facility] 3 09:05:37 Polyneuropathy due to type 2 diabetes mellitus Active 2021 Polyneuropathy due to type 2 diabetes mellitus; Original Code: 5816934065 Orig inal Codesystem: SNOMED CT Classificati on: Medical Confirm ation Status: Confirmed Not Available [facility] 3 09:05:37 Callosity Active 2021 Callosity; Original Code: [id number] Origi nal Codesystem: SNOMED CT Classificati on: Medical Confirm ation Status: Confirmed Not Available [facility] 3 09:05:37 Onychomycosis of toenails Active 2021 Onychomycosis of toenails; Original Code: [id number] Orig inal Codesystem: SNOMED CT Classificati on: Medical Confirm ation Status: Confirmed Not Available [facility] 09:05:37 Problem Notes None recorded. Procedures Surgical History Date Name Laterality Status Provider Name and Address Organization Details Recorded Time 12/18/19 24 NAIL/[facility]usDEBR [facility] 12/18/2023 14:48:32 08/29/[address] Montoya completed Stan Luevano, TOMEKA [address] [place], [address], [facility] 08/29/2023 12:44:39 05/30/[address] Montoya completed Stan Luevano, TOMEKA [address] [place], [address], [facility] 05/30/2023 12:37:45 02/23/[address] Ackerman completed Jigar Carlos, YANELY [address] [facility] [address] 02/23/2023 08:15:42 10/17/20 Routine Foot Care completed Jigar Carlos DPM [address] [place], [address], [facility] 10/17/2022 14:39:47 10/03/[address] Montoya completed Jigar Carlos, YANELY [address] [facility] [address] 10/03/2022 14:34:43 Imaging Results None recorded. Procedure Notes None recorded. Medical Equipment None Reported. Allergies Allergen ID Allergen Name Allergen Category Reaction Reaction Severity Criticality Documentation Date Start Date Code Code System Note Provider Name and Address Organization Details Recorded Time 70 amoxicill in medicatio n Not available Not available Not available 10/03/[address] [facility] 14:05:59 71 Geodon medicatio n Not available Not available Not available 10/03/2022 55667 4 RxNorm Tuyet Danay null, [place] - [facility] 2 14:06:11 72 lithium Not available Not available Not available Not available 10/03/2022 6448 [facility] 2 14:06:21 73 Non-stero idal anti-infl ammatory agent (product) medicatio n Not available Not available Not available 10/03/2022 99922 005 [facility] 2 14:06:34 74 Medicinal product containin g penicilli n and acting as antibacte rial agent (product) medicatio n Not available Not available Not available 10/03/2022 46880 05 [facility] 2 14:06:49 75 pineapple extract food Not available Not available Not available 10/03/2022 22849 74 [facility]arm [facility] 2 14:06:59 [...] Not Available Not Available Not Available Vitals Date Recorded Body height Body mass index (BMI) Body weight Provider Name and Address Organization Details Last Updated DateTime 10/17/2022 165.1 cm 50.1 kg/m2 157719.3 g MIGUELINA Wagner - [facility] 10/17/2022 14:03:03 Social History None recorded. Functional Status None recorded. Mental Status None recorded. Family History Nothing Reported. Medical History No medical history recorded. Gynecological HistoryNo gynecological history recorded. Obstetrics History GPAL:G 0 P 0 0 0 0 Past Encounters Encounter ID Performer Location Encounter Start Date Encounter Closed Date Diagnosis/Indication [id number] T[address] [facility] [address] [place] [phone] 10/03/2022 14:20:55 10/03/2022 15:20:36 Ingrowing toenail [id number] TOMEKA [facility] [address] [place] [phone] 10/17/2022 13:58:33 10/17/2022 15:19:17 Foot callus Ingrowing toenail [id number] Jigar Carlos [facility] [address] [place] [phone] 02/22/2023 11:57:15 02/23/2023 11:31:39 Ingrowing toenail Peripheral neuropathy due to type 2 diabetes mellitus [id number] [address] [place] [phone] 05/30/2023 10:50:45 05/31/2023 09:50:45 Peripheral neuropathy due to type 2 diabetes mellitus On waiting list for organ transplant Acquired pes planus of left foot Acquired pes planus of right foot Acquired hallux limitus of right great toe Acquired hallux limitus of left great toe Onychomycosis [id number] Stan Luevano [facility] Office [address] [place] [address] [place] [address] 08/29/2023 11:01:11 08/30/2023 15:54:51 Peripheral neuropathy due to type 2 diabetes mellitus On waiting list for organ transplant Acquired pes planus of left foot Acquired pes planus of right foot Acquired hallux limitus of right great toe Acquired hallux limitus of left great toe Onychomycosis [id number] Jigar Carlos DPM [facility] [address] [place] [address] [place] [address] 12/18/2023 14:16:46 12/21/2023 09:31:46 Peripheral neuropathy due [...] by Organization Details LastModified Time None Recorded Advance Directives Directive None Recorded Payers Encounter Date Sequence Insurance Name Policy Number Policy Xie Covered Member ID Xie Member ID Guarantor Name 12/18/2023 2 MEDICA [facility] (MEDICAID HMO) Elisa Jennings [id number] Elisa Jennings 12/18/2023 1 [place] [employer] Elisa Jennings [id number] Elisa Jennings 08/29/2023 1 [place] [employer] Elisa Jennings [id number] Elisa Jennings 08/29/2023 2 MEDICA (MEDICARE SUPPLEMENT) Elisa Jennings [id number] Elisa Jennings 05/30/2023 1 [place] [employer] Elisa Jennings [id number] Elisa Jennings 05/30/2023 2 MEDICA (MEDICARE SUPPLEMENT) Elisa Jennings [id number] Elisa Jennings 02/22/2023 1 [place] [employer] Elisa Jennings [id number] Elisa Jennings 02/22/2023 2 MEDICA (MEDICARE SUPPLEMENT) Elisa Jennings [id number] Elisa Jennings 10/17/2022 1 [place] [employer] Elisa Jennings [id number] Elisa Jennings 10/17/2022 2 MEDICA (MEDICARE SUPPLEMENT) Elisa Jennings [id number] Elisa Jennings 10/03/2022 1 [place] [employer] Elisa Jennings [id number] Elisa Jennings 10/03/2022 2 MEDICA (MEDICARE SUPPLEMENT) Elisa Jennings [id number] Elisa Jennings Notes Date Note Type Note Provider Name and Address Organization Details Recorded Time 10/03/2022 text/html HPI Notes: increasing pain in b/l great toes for years. Jigar Carlos DPM [address] [place], [address], [facility] 10/03/2022 14:36:00 10/17/2022 text/html HPI Notes: Post P and A b/l grweat toes. Jigar Carlos DPM [address] [place], [address], [facility] 10/17/2022 14:40:10 02/22/2023 text/html HPI Notes: This Pt. presents for diabetic foot care. THey are a Q9 diabetic with peripheral neuropathy, THick mycotic nails, atrophic skin, palpable pedal pulses, Jigar Carlos DPM [address] [place], [address], [facility] 02/23/2023 08:18:46 05/30/2023 text/html HPI Notes: Tyler salinas is a 28 year old female new patient who presents with the chief complaint with care staff from the [facility]. Presents today for evaluation of problematic toenails and feet in general. They relate chronic thickening and deformity to their toenails that has not responded to self-trimming, topical eakg-eys-pboulju anti-fungal therapy, foot soaks, and other similar conservative treatments. Nails are painful with ambulation and shoegear. Denies any recent foot injury or infection. Patient was last seen by Dr. Jaclyn Roper DO for medical management on 02/05/2023 The patient is on the kidney transplant list per medical record evaluation by Dr. Sanket DO. Claudication symptoms: No Burning symptoms: No Paresthesia: No Patient presents for further evaluation and treatment options. Stan Luevano DPM [address] [place], [address], [facility] 05/30/2023 12:40:21 08/29/2023 text/html HPI Notes: Tyler salinas is a 28 year old female established patient who presents with the chief complaint with care staff from the [facility]. Presents today for evaluation of problematic toenails and feet in general. They relate chronic thickening and deformity to their toenails that has not responded to self-trimming, topical [id number]-lrp-[id number] anti-fungal therapy, foot soaks, and other similar conservative treatments. Nails are painful with ambulation and shoegear. Denies any recent foot injury or infection. Patient was last seen by Dr. Jaclyn Roper DO for medical management on 08/23/2023 The patient is on the kidney transplant list per medical record evaluation by Dr. Sanket DO. Claudication symptoms: No Burning symptoms: No Paresthesia: No Patient presents for further evaluation and treatment options. Stan Luevano DPM [address] [place], [address], [facility] 08/29/2023 12:46:55 12/18/2023 text/html HPI Notes: Tyler salinas is a 28 year old female established patient who presents with the chief complaint with care staff from the [facility]. Presents today for evaluation of problematic toenails and feet in general. They relate chronic thickening and deformity to their toenails that has not responded to self-trimming, topical [id number]-zegvofd anti-fungal therapy, foot soaks, and other similar [...] for further evaluation and treatment options. Jigar Carlos, YANELY [address] [place], [address], [facility] 12/19/2023 09:39:49 OBGyn Episode No OBEpisode recorded.
--- OUTSIDE RECORDS SUMMARY | 2023-12-27 07:52 | XMS_ITS | Clinical Summary ---
Author Name Unknown Organization [facility] Address [address] [place] [address] Care Team Providers Care Ship Washer Name Role Phone No Primary/Referring, Phy Primary Care Provider Unavailable Source Comments You are receiving this document as you are listed as the primary care provider,follow-up provider, or the patient has been referred to you for consultation.This is in compliance with the Medicare and[facility],which states Providers who transition their patient to another setting of careor provider of care or refers their patient to another provider of care shouldprovide summary care record for each transition of care or referral. [employer] Allergies Active Allergy Reactions Criticality Noted Date Comments Amantadines 06/14/2015 Ampicillin 07/17/2003 PN: LW Reaction: HIVES [place] 06/14/2015 Nsaids Other, see comments High 04/06/2018 Acute renal failure Other reaction(s): Other (see comments) Acute renal failure Acute renal failure Renal failure Acute renal failure Pineapple Unknown,Other, see comments 06/09/2020 Ziprasidone 06/14/2015 Medications Medication Sig Dispensed Refills Start Date End Date Status polyethylene glycol (AKA MIRALAX) packetIndications :Constipation Take 17 g by mouth two times a day. Indications: Constipation 0 06/14/2015 Active traZODone (DESYREL) 150 MG tablet Take 1 Tablet (150 mg) by mouth daily at bedtime. 0 06/14/2015 Active levothyroxine (SYNTHROID) 100 MCG tablet Take 1 Tablet (100 mcg) by mouth daily. Before breakfast 0 06/14/2015 Active cholecalciferol (AKA VITAMIN D3) 1000 UNITS capsule Take 1 Capsule (1,000 Units) by mouth daily. 0 06/14/2015 Active acetaminophen (TYLENOL) 325 MG tabletIndications :Pain Take 1-2 Tablets (325-650 mg) by mouth two times daily as needed. Indications: Pain 0 Active albuterol 2.5 mg/3 mL, 0.083%, (PROVENTIL) nebulizer solution 1 Each (2.5 mg) by Nebulization route every 4 hours as needed for Wheezing or Shortness of Breath. 0 Active polyvinyl alcohol (ARTIFICIAL TEARS) 1.4 % eye drop solution Take 1 Drop as instructed every 4 hours as needed for Dry Eyes. 0 Active calcium carbonate (TUMS) 500 MG chewable tablet Chew and swallow 1 Tablet (500 mg) by mouth three times a day as needed for Heartburn. And 2 tablets every hour as needed for stomach pain + indigestion. Maximum 10 tablets/24 hours. 0 Active melatonin 5 MG tablet Take 1 Tablet (5 mg) by mouth at bedtime as needed. 0 Active guaiFENesin (ROBITUSSIN) 100 MG/5ML solution Take 10 mL by mouth every 4 hours as needed. 0 Active Emollient (VANICREAM) cream Apply topically every 6 hours as needed (for rash). 0 Active carbamide peroxide (DEBROX) 6.5 % ear drop solution Place 3 Drops into both ears every 4 hours as needed (for excess earwax). 0 Active Camphor-Eucalyptu s-Menthol (VICKS VAPORUB EX) Apply topically underneath nose or to chest every 2 hours as needed. 0 Active amLODIPine (NORVASC) 10 MG tablet Take 1 Tablet (10 mg) by mouth daily. 0 Active FLUoxetine (PROZAC) 10 MG capsule Take 3 Capsules (30 mg) by mouth daily. 0 Active loratadine (CLARITIN) 10 MG tablet Take 1 Tablet (10 mg) by mouth daily. [address] (PROTONIX) 40 MG tablet Take 1 Tablet (40 mg) by mouth daily. 0 Active sucralfate (CARAFATE) 1 g tablet Take 1 Tablet (1 g) by mouth two times a day. 0 Active sennosides-docusa te sodium (SENOKOT S) 8.6-50 MG per tablet Take 1 Tablet by mouth two times a day. 0 Active montelukast (SINGULAIR) 10 MG tablet Take 1 Tablet (10 mg) by mouth daily at bedtime. 0 Active divalproex (DEPAKOTE ER) 500 MG 24 hour release tablet Take 2 Tablets (1,000 mg) by mouth two times a day. 0 Active UREA, EMOLLIENT, (AKA CARMOL) 20 % cream Apply topically daily. 0 Active umeclidinium (INCRUSE ELLIPTA) 62.5 MCG/INH inhaler Inhale 1 Puff daily. 0 Acti ve fluticasone-salme terol (ADVAIR) 100-50 MCG/DOSE diskus inhaler Inhale 1 Puff two times a day. Rinse mouth/gargle after use 0 Active cyclobenzaprine (FLEXERIL) 5 MG tablet Take 1 Tablet (5 mg) by mouth every 8 hours as needed for Muscle Spasms. 0 Active sodium chloride (OCEAN) 0.65 % nasal solution Place 2 Sprays into both nostrils every 2 hours as needed. 0 Active EPINEPHrine (EPIPEN) 0.3 MG/0.3ML injection Inject 0.3 mL (0.3 mg) intramuscularly as needed. 0 Active nystatin (MYCOSTATIN) 477385 UNIT/GM cream Apply topically two times daily as needed. 0 Active atorvastatin (LIPITOR) 40 MG tabletIndications :to lower cholesterol Take 1 Tablet (40 mg) by mouth every evening. Indications: to lower cholesterol 90 Tablet 3 02/27/2022 Active dulaglutide (TRULICITY) 1.5 MG/0.5ML injection pen Inject 1.5 mg subcutaneously once a week. 6 mL 3 02/27/2022 Active Blood Glucose Monitoring Suppl (ACCU-CHEK GUIDE) w/Device KITIndications:Di abetes Mellitus Use 1 Kit to test two times a day before meals. Indications: Diabetes 1 Each 0 03/02/2022 Active lancets (ACCU-CHEK FASTCLIX)Indicati ons:Diabetes mellitus type II (HRC) Use 1 Each to test two times a day before meals. 102 Each 0 03/02/2022 Active lancet (ACCU-CHEK FASTCLIX) deviceIndications :Diabetes Mellitus Use 1 Each to test two times a day before meals. Indications: Diabetes 1 Each 0 03/02/2022 Active blood glucose (ACCU-CHEK GUIDE) test stripIndications: Diabetes Mellitus Use to test two times a day before meals. Each test strip is for one time use only. Indications: Diabetes 100 Strip 0 03/02/2022 Active calcitriol (ROCALTROL) 0.25 MCG capsule Take 1 Capsule (0.25 mcg) by mouth daily. 0 Active Glycerin, Laxative, (GLYCERIN, ADULT, RE) Insert 1 Suppository rectally as needed. If no BM in 96 hours 0 Active Icosapent Ethyl (VASCEPA) 1 g CAPS Take 2 Capsules (2 g) by mouth two times a day. 0 Active gabapentin (NEURONTIN) 300 MG capsule Take 1 Capsule (300 mg) by mouth daily at bedtime. 0 Active propranolol (INDERAL) 60 MG tablet Take 1 Tablet (60 mg) by mouth three times a day. 0 Active clozapine 100 MG tablet Take 1 Tablet (100 mg) by mouth two times a day. 0 Active OLANZapine (ZYPREXA) 10 MG tablet Take 0.5 Tablets (5 mg) by mouth as needed. May repeat every 4 hours as needed up to 10mg/day 0 Active diphenhydrAMINE (BENADRYL ALLERGY) 25 MG tablet Take 2 Tablets (50 mg) by mouth every 6 hours as needed for Itching. 0 Active traMADol (ULTRAM) 50 MG tablet Take 1 Tablet (50 mg) by mouth two times daily as needed for Pain. 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 Blurry vision few months, painful right eye few days. Seen as an inpatient consult 01/09/21 identified as having anterior scleritis right eye started on Pred forte. Labs negative: Quantiferon, Syphilis, ANCA, Rheumatoid Factor, CCP. ?? 01/11/21: Improving nasal sectoral hyperemia, rare cell, OCT without signs of posterior scleritis. Taper PF Q3 days ?? Blurry vision few months, painful right eye few days. Seen as an inpatient consult 01/09/21 identified as having anterior scleritis right eye started on Pred forte. Labs negative: Quantiferon, Syphilis, ANCA, Rheumatoid Factor, CCP. ?? 01/11/21: Improving nasal sectoral hyperemia, rare cell, OCT without signs of posterior scleritis. Taper PF Q3 days ?? Blurry vision few months, painful right eye few days. Seen as an inpatient consult 01/09/21 identified as having anterior scleritis right eye started on Pred forte. Labs negative: Quantiferon, Syphilis, ANCA, Rheumatoid Factor, CCP. ?? 01/11/21: Improving nasal sectoral hyperemia, rare cell, OCT without signs of posterior scleritis. Taper PF Q3 days ?? Blurry vision few months, painful right eye few days. Seen as an inpatient consult 01/09/21 identified as having anterior scleritis right eye started on Pred forte. Labs negative: Quantiferon, Syphilis, ANCA, Rheumatoid Factor, CCP. ?? 01/11/21: Improving nasal sectoral hyperemia, rare cell, OCT without signs of posterior scleritis. Taper PF Q3 days Suicide gesture 05/11/2018 Pulmonary embolism 05/31/2017 Obesity (BMI 30-39.9) 06/14/2015 Diabetes type 2, controlled 06/14/2015 Dependence on renal dialysis 06/14/2015 Overview: Renal dialysis status Insulin long-term use 06/14/2015 Mood disorder 06/14/2015 Hypokalemia 06/14/2015 Mental retardation, mild (I.Q. 50-70) 06/14/2015 Renal failure 06/14/2015 Hypothyroidism due to medication 06/14/2015 Aggression 06/14/2015 [place]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 06/14/2015 Suicidal behavior 02/17/2015 Anesthesia of skin 08/16/2014 Generalized abdominal pain 05/12/2013 Arteriovenous fistula 02/20/2013 ESRD (end stage renal disease) on dialysis 02/18 Overview: Due to lithium toxicity Jun 2012, dialysis MWF at [facility] Overview: Due to lithium toxicity Jun 2012, dialysis MWF at [facility] Gastroesophageal reflux disease 02/18/2013 Borderline intellectual functioning 06/04/2012 Bipolar 1 disorder 06/03/2012 Acanthosis nigricans 02/22/2010 Posttraumatic stress disorder 01/19/2010 Attention deficit hyperactivity disorder (ADHD) 07/21/2003 Overview: LW Onset: [id number] ; Attention Deficit Dis w Hyperactivity Episodic mood disorder 07/21/2003 Overview: LW Onset: [id number] ; Mood Disorder Encounters Date Type Department Care Team Description 12/26/2023 9:29 PM [facility] - Present Emergency Emergency Dept [address] [place] [id number] 12/11/2023 1:41 PM [facility] - 12/12/2023 11:07 AM [facility] Emergency Emergency Dept [address] [place] [id number] Sara Stein MD Adjustment disorder with disturbance of conduct (HRC) (Primary Dx) Discharge Disposition: Home from Last 3 Months Immunizations Name Administration Dates Next Due Yobani COVID-19 Vaccine 04/29/2021 Family History Medical History Relation Name Comments Alcohol Abuse Father Depression Mother OCD Mother Alcohol Abuse Maternal Grandfather Relation Name Status Comments Father Mother Maternal Grandfather Social History Tobacco Use Types Packs/Day Years Used Date Smoking Tobacco: Never Smokeless Tobacco: Never Tobacco Cessation:Counseling Given: Not Answered Alcohol Use Standard Drinks/Week Comments Never 0 (1 standard drink = 0.6 oz pur e alcohol) Humiliation, Afraid, Rape, and Kick questionnair e Answer Date Recorded Fear of Current or Ex-Partner Not on file Emotionally Abused Not on file 12/26/2023 Within the last year, have y ou been kicked, hit, slapped, or otherwise physically hurt by your partner or ex-partner? Patient declined 12/26/2023 Within the last year, have y ou been raped or forced to have any kind of sexual activity by your partner or ex-partner? Patient declined 12/26/2023 Sex and Gender Information Value Date Recorded Sex Assigned at Not on file Gender Identity Not on file Sexual Orientation Not on file Last Filed Vital Signs Vital Sign Reading Time Taken Comments Blood Pressure 133/84 12/26/2023 9:36 PM [facility] Pulse 87 12/26/2023 9:36 PM [facility] Temperature 36.3 ??C (97.4 ??F) 12/26/2023 9:36 PM CS T Respiratory Rate 20 12/26/2023 9:36 PM [facility] Oxygen Saturation 100% 12/26/2023 9:36 PM [facility] Inhaled Oxygen Concentration - - Weight 136.6 kg (301 lb 3.2 oz) 01/11/2023 4:30 PM [facility] Height 165.1 cm (5' 5) 01/11/2023 4:30 PM [facility] Body Mass Index 50.12 01/11/2023 4:30 PM [facility] Plan of Treatment Health Maintenance Due Date Last Done Comments Cervical Cancer Screening Due 1997 Diabetes: Foot Exam 1997 Hep C Screening (Preventive Services) 1997 Medicare Annual Wellness Visit 1997 HepB (1) 2017 Pneumococcal (3 - PPSV23 or PCV20) 08/20/2018 08/20/2013, 07/23/2012 COVID-19 Vaccine (2 - 2022-2 4 season) 2023 04/29/2021 Diabetes: Eye Exam 10/05/2023 10/05/2022 Diabetes: HGBA1C 01/01/2024 10/01/2023, 08/2023, 01/11/2023, Additional history exists Diabetes: Lipid Panel 02/27/2027 02/27/2022 , 02/27/2022, 02/25/2022, Additional history exists DTaP/Tdap/Td (8 - Tdap) 04/30/2027 04/30/20 17, 08/12/2008, 03/28/2002, Additional history exists Zoster/Shingles (1 of 2) 2047 Hib Completed 07/01/1998, 04/1998, 1997, Additional history exists IPV (Polio) Completed 03/28/2002, 01/2002, 1997, Additional history exists HPV Vaccine Completed 01/20/2009, 12/28, 08/12/2008, Additional history exists HepA Completed 10/17/2009, 09/27, 10/15/2009, Additional history exists Chlamydia Discontinued 01/03/2014 MCV4 Completed 04/26/2015, 07/28, 08/20/2013, Additional history exists HIV Screening (Preventive Services) Completed 10/01/2023 Influenza Completed 12/04/2023, 04/2020, 10/31/2020, Additional history exists Procedures The patient is currently admitted. The information in this section might not be complete until the patient is discharged. Procedure Name Priority Date/Time Associated Diagnosis Comments VALPROIC ACID (DEPAKENE) STAT 12/11/2023 5:57 PM [facility] COMPLETE BLOOD COUNT-W/DIFF STAT 12/11/2023 5:57 PM [facility] CBC AND DIFFERENTIAL PANEL STAT 12/11/2023 5:57 PM [facility] CLOZAPINE STAT 12/11/2023 5:57 PM [facility] from Last 3 Months Results * (ABNORMAL) Complete Blood Count-W/Diff (12/11/2023 5:57 PM [facility]) WBC 8.1 3.5 - 10.5 x10(9)/L 12/11/2023 6:07 PM [facility] RBC 2.89(L) 3.90 - 5.03 x10(12)/L 12/11/2023 6:07 PM [facility] Hemoglobin 8.8(L) 12.0 - 15.5 g/dL 12/11/2023 6:07 PM [facility] HCT 29.6(L) 34.9 - 44.5 % 12/11/2023 6:07 PM [facility] MCV 102.4(H) 80.0 - 100.0 fL 12/11/2023 6:07 PM [facility] MCH 30.4 27.6 - 33.3 pg 12/11/2023 6:07 PM [facility] MCHC 29.7(L) 31.5 - 35.2 g/dL 12/11/2023 6:07 PM [facility] RDW 18.5(H) 11.9 - 15.5 % 12/11/2023 6:07 PM [facility] Platelets 162 150 - 450 x10(9)/L 12/11/2023 6:07 PM [facility] Automated NRBC 0 <=0 /100 WBC 12/11/2023 6:07 PM [facility] Neutrophil Absolute 4.1 1.7 - 7.0 10(9)/L 12/11/2023 6:07 PM [facility] Lymphocyte Absolute 2.8 1.0 - 4.8 10(9)/L 12/11/2023 6:07 PM [facility] Monocyte Absolute 0.8 0.2 - 0.9 10(9)/L 12/11/2023 6:07 PM [facility] Eosinophil Absolute 0.2 0.0 - 0.5 10(9)/L 12/11/2023 6:07 PM [facility] Basophil Absolute 0.0 0.0 - 0.3 10(9)/L 12/11/2023 6:07 PM [facility] Immature Granulocyte % 0.9(H) 0.0 - 0.5 % 12/11/2023 6:07 PM [facility] Blood Venipuncture / Unknown 12/11/2023 5:57 PM [facility] 12/11/2023 5:58 PM [facility] Tuyet Wynn PA-C LAB_[facility] [place] [address], [facility] [phone] * Clozapine, Serum (12/11/2023 5:57 PM [facility]) Clozapine 628 350 - 850 ng/mL 12/11/2023 7:21 PM [facility] Blood Venipuncture / Unknown 12/11/2023 5:57 PM [facility] 12/11/2023 5:58 PM [facility] Narrative [facility] - 12/11/2023 7:21 PM [facility] There is no definitive clozapine level that is associated with efficacy or toxicity. Efficacy for the majority of patients will be highest at levels above 350 ng/mL. For some other patients, however, clozapine levels as low as 200 ng/mL will provide response or prevention of relapse. Tuyet Wynn PA-C LAB_1 Performing Organization Address [facility] de Phone Number [address] [address], [facility] [phone] * Valproic Acid (Depakene) Level (12/11/2023 5:57 PM [facility]) [facility] Valproic Acid 73 50 - 100 mcg/mL 12/11/2023 6:26 PM [facility] Blood Venipuncture / Unknown 12/11/2023 5:57 PM [facility] 12/11/2023 5:58 PM [facility] Tuyet Wynn PA-C LAB[facility]1 Performing Organization Address [facility] Co de Phone Number [address] [address], [facility] [phone] from Last 3 Months Advance Directives Latest Code Status on File Code Status Date Activated Date Inactivated Comments Full Code 01/11/2023 5:12 PM 01/12/2023 6:22 PM Code Status History Code Status Date Activated Date Inactivated Comments Full Code 02/25/2022 1:02 PM 03/06/2022 4:20 PM Care Teams Ship Washer Relationship Specialty Start Date End Date No Primary/Referring, Phy PCP - General 06/26/22
--- OUTSIDE RECORDS SUMMARY | 2023-12-27 07:52 | XMS_ITS | Encounter Summary ---
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 Patient declined 12/11/2023 Within the last year, have y ou been raped or forced to have any kind of sexual activity by your partner or ex-partner? Patient declined 12/11/2023 Sex and Gender Information Value Date Recorded Sex Assigned at Not on file Gender Identity Not on file Sexual Orientation Not on file documented as of this encounter Last Filed Vital Signs Vital Sign Reading Time Taken Comments Blood Pressure 115/75 12/12/2023 9:19 AM TECHNICAL TESTING ENGINEER Pulse 83 12/12/2023 9:19 AM TECHNICAL TESTING ENGINEER Temperature 36.8 ??C (98.2 ??F) 12/12/2023 9:19 AM CS T Respiratory Rate 16 12/12/2023 9:19 AM TECHNICAL TESTING ENGINEER Oxygen Saturation 98% 12/12/2023 9:19 AM TECHNICAL TESTING ENGINEER Inhaled Oxygen Concentration - - Weight - - Height - - Body Mass Index - - documented in this encounter Discharge Summaries * Steve Garcia PA-C - 12/12/2023 11:07 AM CST [facility] Emergency Medicine Observation Discharge Summary ED Arrival Date: 12/11/2023 1341 Start ED Obs date: 12/11/2023 1525 Discharge Date: 12/12/23 Reason for ED Observation: Concerns about self harm behaviors needing further evaluation Discharge Exam: Most recent vitals: No data found. General: Alert Respiratory: non-labored GI: no vomiting, no abdominal tenderness Neuro: Gait stable with no assistants Psych: normal affect. Calm behavior. Homicidal ideation: none. Hallucinations: none. Thought process: normal. Insight: intact Hospital Course: See ED Provider Note ED Course for full detail Concepcion Events: Slept in the ED, seen by the ED Psychiatrist. During observation the patient did not require medications for agitation and did not require restraints for safety. At discharge, the patient was tolerating food and liquids. Procedures Performed: None Advanced Imaging: None Consultations: Psychiatry Discharge Condition: Stable Disposition: Discharge Concepcion Discharge Instructions and Follow Up Plan: Continue her medications and treatment plans. Clinical Impressions: 1. 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 Indications: Pain 0 albuterol 2.5 mg/3 mL, 0.083%, (PROVENTIL) nebulizer solution 1 Each (2.5 mg) by Nebulization route every 4 hours as needed for Wheezing or Shortness of Breath. 0 amLODIPine (NORVASC) 10 MG tablet Take 1 Tablet (10 mg) by mouth daily. 0 blood glucose (ACCU-CHEK GUIDE) test stripIndications:Natalie betes Mellitus Use to test two times a day before meals. Each test strip is for one time use only. Indications: Diabetes 100 Strip 0 03/02/2022 Blood Glucose Monitoring Suppl (ACCU-CHEK GUIDE) w/Device KITIndications:Diabe kerrie Mellitus Use 1 Kit to test two times a day before meals. Indications: Diabetes 1 Each 0 03/02/2022 calcitriol (ROCALTROL) 0.25 MCG capsule Take 1 Capsule (0.25 mcg) by mouth daily. 0 calcium carbonate (TUMS) 500 MG chewable tablet Chew and swallow 1 Tablet (500 mg) by mouth three times a day as needed for Heartburn. And 2 tablets every hour as needed for stomach pain + indigestion. Maximum 10 tablets/24 hours. 0 Kkeimxe-Xpuhahzdzs-I enthol (VICKS VAPORUB EX) Apply topically underneath nose or to chest every 2 hours as needed. 0 carbamide peroxide (DEBROX) 6.5 % ear drop solution Place 3 Drops into both ears every 4 hours as needed (for excess earwax). 0 cholecalciferol (AKA VITAMIN D3) 1000 UNITS capsule Take 1 Capsule (1,000 Units) by mouth daily. 0 06/14/2015 clozapine 100 MG tablet Take 1 Tablet (100 mg) by mouth two times a day. 0 cyclobenzaprine (FLEXERIL) 5 MG tablet Take 1 Tablet (5 mg) by mouth every 8 hours as needed for Muscle Spasms. 0 diphenhydrAMINE (BENADRYL ALLERGY) 25 MG tablet Take 2 Tablets (50 mg) by mouth every 6 hours as needed for Itching. 0 divalproex (DEPAKOTE ER) 500 MG 24 hour release tablet Take 2 Tablets (1,000 mg) by mouth two times a day. 0 Emollient (VANICREAM) cream Apply topically every 6 hours as needed (for rash). 0 EPINEPHrine (EPIPEN) 0.3 MG/0.3ML injection Inject 0.3 mL (0.3 mg) intramuscularly as needed. 0 FLUoxetine (PROZAC) 10 MG capsule Take 3 Capsules (30 mg) by mouth daily. 0 fluticasone-salmeter ol (ADVAIR) 100-50 MCG/DOSE diskus inhaler Inhale 1 Puff two times a day. Rinse mouth/gargle after use 0 gabapentin (NEURONTIN) 300 MG capsule Take 1 Capsule (300 mg) by mouth daily at bedtime. 0 Glycerin, Laxative, (GLYCERIN, ADULT, RE) Insert 1 Suppository rectally as needed. If no BM in 96 hours 0 guaiFENesin (ROBITUSSIN) 100 MG/5ML solution Take 10 mL by mouth every 4 hours as needed. 0 Icosapent Ethyl (VASCEPA) 1 g CAPS Take 2 Capsules (2 g) by mouth two times a day. 0 lancet (ACCU-CHEK FASTCLIX) deviceIndications:Di abetes Mellitus Use 1 Each to test two times a day before meals. Indications: Diabetes 1 Each 0 03/02/2022 lancets (ACCU-CHEK FASTCLIX)Indications :Diabetes mellitus type II (HRC) Use 1 Each to test two times a day before meals. 102 Each 0 03/02/2022 levothyroxine (SYNTHROID) 100 MCG tablet Take 1 Tablet (100 mcg) by mouth daily. Before breakfast 0 06/14/2015 loratadine (CLARITIN) 10 MG tablet Take 1 Tablet (10 mg) by mouth daily. 0 melatonin 5 MG tablet Take 1 Tablet (5 mg) by mouth at bedtime as needed. 0 montelukast (SINGULAIR) 10 MG tablet Take 1 Tablet (10 mg) by mouth daily at bedtime. 0 nystatin (MYCOSTATIN) 165221 UNIT/GM cream Apply topically two times daily as needed. 0 OLANZapine (ZYPREXA) 10 MG tablet Take 0.5 Tablets (5 mg) by mouth as needed. May repeat every 4 hours as needed up to 10mg/day [address] (PROTONIX) 40 MG tablet Take 1 Tablet (40 mg) by mouth daily. 0 polyethylene glycol (AKA MIRALAX) packetIndications:Co nstipation Take 17 g by mouth two times a day. Indications: Constipation 0 06/14/2015 polyvinyl alcohol (ARTIFICIAL TEARS) 1.4 % eye drop solution Take 1 Drop as instructed every 4 hours as needed for Dry Eyes. 0 propranolol (INDERAL) 60 MG tablet Take 1 Tablet (60 mg) by mouth three times a day. 0 sennosides-docusate sodium (SENOKOT S) 8.6-50 MG per tablet Take 1 Tablet by mouth two times a day. 0 sodium chloride (OCEAN) 0.65 % nasal solution Place 2 Sprays into both nostrils every 2 hours as needed. 0 sucralfate (CARAFATE) 1 g tablet Take 1 Tablet (1 g) by mouth two times a day. 0 traMADol (ULTRAM) 50 MG tablet Take 1 Tablet (50 mg) by mouth two times daily as needed for Pain. 0 traZODone (DESYREL) 150 MG tablet Take 1 Tablet (150 mg) by mouth daily at bedtime. 0 06/14/2015 umeclidinium (INCRUSE ELLIPTA) 62.5 MCG/INH inhaler Inhale 1 Puff daily. 0 UREA, EMOLLIENT, (AKA CARMOL) 20 % cream Apply topically daily. 0 documented as of this encounter Consult Notes * Fiona Ferreira MD - 12/12/2023 9:09 AM CSTAssociated Order(s): PSYCHIATRY CONSULT 12/12/2023 [facility] PSYCHIATRIC CONSULTATION I have examined this patient and reviewed the chart. Patient's case has been discussed with the crisis manager social responsibility and physician's bakery assistant. Chief Complaint: I slept a little last night History of Present Illness, per ED providers and ED SW notes: Elisa Jennings is a 28 y.o. old female with developmental delay, ADHD, Cluster B personality disorder, Intermittent explosive disorder, Diabetes, CKD, Gerd And history of Pulmonary embolism presents to the ED with suicidal thoughts. Last night she attempted to hang herself. She locked herself in the bedroom and got a cord and wrapped it around her neck.But was stopped before she could tie it to anything. Today she broke a pencil and attempted to cut herself. She is on a 2-1 at her prison. She also states she sleeps with Bi Pap and cannot lay flat. Denies AH but states sometimes she sees her grandmother. Also states she has been having bad nightmares the last month. The history is provided by the patient. Brady Mello PA-C ED Course as of 12/12/23 0853 SunDec 11, 2023 1456 Patient signed out pending asbestos removal worker recommendations. [JU] 1511 Sign out received, assumed care at this time. [facility] 2:1, wrapped cord around neck and threatened to kill self yesterday. Still SI today and stabbed forearm with pencil. Has guardian. [KN] [address] Ferreira saw patient in ED. He recommends obtaining CBC and clozapine level, asleep patient in the ED overnight and he will reassess patient morning. Will monitor overnight and assess compliance. Patient continues to state she was suicidal, her last admission she was discharged the same day so reluctant to admit at this time until further evaluation overnight in the ED. Guardian agrees with plan (mother who is here w/ patient now). She does use a CPAP at home, will need tofigure out plan on this later this evening. [KN] 1529 TRANSFER TO ED OBSERVATION The patient was transferred to observation status. Start Obs date: 12/11/2023 1525 This ED Visit note serves at the patient's observation history and physical exam. ED Observation Plan -Provide supportive care in a safe environment while the patient can be evaluated for concerns for self harm -Re-evaluate self harm symptoms after rest in a safe environment -Obtain any available collateral information to best evaluate risk of future self harm Discharge Criteria -Team is able to find a disposition that addresses self harm concerns [KN] 181 Complete Blood Count with Diff(!) Facility faxed over her last routine labs which were checked 1 week ago on 12/04 - shows hgb 8.5, OIB309.8, RDW 18.6. Overall CBC similar today, macrocytic anemia with hgb stable at 8.8. denying any acute evidence of bleeding. No leukocytosis. [KN] 1827 Valproic Acid: 73 [KN] 1929 Clozapine: 628 WNL. Paged HO to order clozapine while in ED. [KN] 2024 Spoke to HO, they will order her clozapine while she is here in ED [KN] SunDec 12, 2023 0130 Patient signed out pending psych eval in AM. Vol per guardian. [KN] 0138 Sign out received, assumed care at this time. [TS] 0720 Sign out received, assumed care at this time. Patient is awaiting re- evaluation by SW. Patienthas a hx of Autism, borderline and antisocial personality disorders, PTSD and intermittent explosive disorder brought to the ED from her after threatening SI. Patient has a HGB of 8.8. Per review of records, she had a HGB of 8.7 earlier this month through [facility] and it appears that her care team is aware of this. [] ED Course User Index [JH] Steve Garcia PA-C [JU] Brady Mello PA-C [KN] Tuyet Wynn PA-C [TS] Buddy Perdomo PA-C Narrative: The patient is a 28 y.o. female who comes to the ED with medics. Per report by medics patient [facility]in a prison. staff called to report that patient had attempted to wrap a cord around her neck last evening in attempt to kill self, and staff were able to intervene. Today patient also then attempted to kill self by attempting to cut self with a broken pencil so medics called to come to the ED. In talking with patient she states I've been feeling suicidal really bad. It's been getting worse for the past few weeks to the point that I locked myself in the bedroom last night and had the cord around my neck. The staff took that. I also put a bag over my head but they didn't know about that. This morning I tried to cut myself with a broken pencil. No, it didn't break the skin. Yes, I'm taking my medications. I'm having nightmares too about a month now but they're getting worse too. When asked about VH patient states sometimes. I saw my grandmother a few weeks ago. No, there weren't any triggers, I've just been feeling down. I am taking my medications but I don't feel like they're working anymore. I think I should be admitted to look at my meds again. I've also lost a lot of weight, like 100lb in a couple of months. I just don't want to eat. I feel nauseous every time I start to eat. I'm not sleeping unless I take 2 of the melatonin and I think that's more than normal. Information from collateral (include names and phone numbers) spoke with staff Trent ([phone] who states she's lived there 2 years, doing well overall but more depressed recently, has come to staff to talk more frequently as well. She has noticed more weight loss, but not sure how long a period of time it's been; taking meds as prescribed; more lethargic, low energy recently. Verified that she had attempted last night with the cord around her neck and staff intervened. Call to mother/guardian Ana Maria who states she's been stable for quite some time now. We thought the meds were doing well. She did start losing weight when she was placed on the clozapine about 9 months ago, but she's now had other side effects like dropping things and drooling but her psychiatristsays it's minimal and not TD. She has a hard time this time of year as she's cooped up. She also had covid a couple of weeks ago. She also had an outburst last week too where she put a cord around her neck but staff were able to talk with her and felt she didn't need to come in. Does patient have legal guardian? (include names, phone numbers, and document contact with guardian) Ana Maria Jennings [phone] who is in agreement with patient to be admitted if warranted Rossana Cabrera, [facility] 12/11/2023, 2:42 PM Per principal technical writer: Patient seen this morning in her room after having spent the night boarding in [facility]. She appears fatigued but otherwise is calm and cooperative. She tells me she is feeling sleepy, but denies any physical concerns. She reports sleeping alright last night. She reports still feeling suicidal, but denies any active plans to harm herself right now. She acknowledges feeling suicidal often, but can't identify any specific triggers for what caused her to attempt yesterday at her prison. She reports liking her prison, liking the staff there. She is getting along with everyone fine there. She reports no issues with her mother. She reports compliance with all her medications; hasn't missed any doses. She doesn't think she hashad any medication changes recently. She just saw her psychiatrist yesterday, virtually. She denies any issues with appetite. She denies any recent illnesses (collateral notes that she recently had COVID last month, however) Prior to admission medications: This is your record. Keep this with you and show to your community pharmacist(s) and physician(s) at each visit. Allergies: NSAIDS - Other, see comments AMANTADINES - (reactions not documented) AMPICILLIN - (reactions not documented) LITHIUM - (reactions not documented) PINEAPPLE - Unknown,Other, see comments ZIPRASIDONE - (reactions not documented) Medications Valid as of: December 12, 2023 - 9:09 AM Generic Name Brand Name Tablet Size Instructions for use Acetaminophen (Tab) TYLENOL 325 MG Take 1-2 Tablets (325-650 mg) by mouth two times daily as needed. Indications: Pain Albuterol Sulfate (Nebu Soln) PROVENTIL (2.5 MG/3ML) 0.083% 1 Each (2.5 mg) by Nebulization route every 4 hours as needed for Wheezing or Shortness of Breath. amLODIPine Besylate (Tab) NORVASC 10 MG Take 1 Tablet (10 mg) by mouth daily. Atorvastatin Calcium (Tab) LIPITOR 40 MG Take 1 Tablet (40 mg) by mouth every evening. Indications:to lower cholesterol Blood Glucose Monitoring Suppl (Kit) Accu-Chek Guide w/Device Use 1 Kit to test two times a day before meals. Indications: Diabetes Calcitriol (Cap) ROCALTROL 0.25 MCG Take 1 Capsule (0.25 mcg) by mouth daily. Calcium Carbonate Antacid (Chew Tab) TUMS 500 MG Chew and swallow 1 Tablet (500 mg) by mouth three times a day as needed for Heartburn. And 2 tablets every hour as needed for stomach pain + indigestion. Maximum 10 tablets/24 hours. Maehnkw-Aodkorbojo-Ytqdgrc Apply topically underneath nose or to chest every 2 hours as needed. Carbamide Peroxide (Solution) DEBROX 6.5 % Place 3 Drops into both ears every 4 hours as needed (for excess earwax). Cholecalciferol (Cap) VITAMIND3 25 MCG (1000 UT) Take 1 Capsule (1,000 Units) by mouth daily. cloZAPine (Tab) CLOZARIL 100 MG Take 1 Tablet (100 mg) by mouth two times a day. Cyclobenzaprine HCl (Tab) FLEXERIL 5 MG Take 1 Tablet (5 mg) by mouth every 8 hours as needed for Muscle Spasms. diphenhydrAMINE HCl (Tab) BENADRYL 25 MG Take 2 Tablets (50 mg) by mouth every 6 hours as needed for Itching. Divalproex Sodium (TABLET SR 24 HR) DEPAKOTE ER 500 MG Take 2 Tablets (1,000 mg) by mouth two timesa day. Dulaglutide (Solution Pen-injector) TRULICITY 1.5 MG/0.5ML Inject 1.5 mg subcutaneously once a week. Emollient (Cream) Vanicream Apply topically every 6 hours as needed (for rash). EPINEPHrine (Solution Auto-injector) EPIPEN 0.3 MG/0.3ML Inject 0.3 mL (0.3 mg) intramuscularly as needed. FLUoxetine HCl (Cap) PROZAC 10 MG Take 3 Capsules (30 mg) by mouth daily. Fluticasone-Salmeterol (AEROSOL POWDER, BREATH ACTIVATED) ADVAIR 100-50 MCG/DOSE Inhale 1 Puff two times a day. Rinse mouth/gargle after use Gabapentin (Cap) NEURONTIN 300 MG Take 1 Capsule (300 mg) by mouth daily at bedtime. Glucose Blood (Strip) Accu-Chek Guide Use to test two times a day before meals. Each test strip is for one time use only. Indications: Diabetes Glycerin (Laxative) Insert 1 Suppository rectally as needed. If no BM in 96 hours guaiFENesin (Solution) ROBITUSSIN 100 MG/5ML Take 10 mL by mouth every 4 hours as needed. Icosapent Ethyl (Cap) Icosapent Ethyl 1 g Take 2 Capsules (2 g) by mouth two times a day. Lancets (Misc) lancets Use 1 Each to test two times a day before meals. Lancets Misc. (Kit) ACCU-CHEK FASTCLIX Use 1 Each to test two times a day before meals. Indications: Diabetes Levothyroxine Sodium (Tab) SYNTHROID 100 MCG Take 1 Tablet (100 mcg) by mouth daily. Before breakfast Loratadine (Tab) CLARITIN 10 MG Take 1 Tablet (10 mg) by mouth daily. Melatonin (Tab) melatonin 5 MG Take 1 Tablet (5 mg) by mouth at bedtime as needed. Montelukast Sodium (Tab) SINGULAIR 10 MG Take 1 Tablet (10 mg) by mouth daily at bedtime. Nystatin (Cream) MYCOSTATIN 156639 UNIT/GM Apply topically two times daily as needed. OLANZapine (Tab) ZyPREXA 10 MG Take 0.5 Tablets (5 mg) by mouth as needed. May repeat every 4 hoursas needed up to 10mg/day Pantoprazole Sodium (Tablet Delayed Release) PROTONIX 40 MG Take 1 Tablet (40 mg) by mouth daily. Polyethylene Glycol 3350 (Pack) MIRALAX 17 g Take 17 g by mouth two times a day. Indications: Constipation Polyvinyl Alcohol (Solution) ARTIFICIAL TEARS 1.4 % Take 1 Drop as instructed every 4 hours as needed for Dry Eyes. Propranolol HCl (Tab) INDERAL 60 MG Take 1 Tablet (60 mg) by mouth three times a day. Saline (Solution) OCEAN 0.65 % Place 2 Sprays into both nostrils every 2 hours as needed. Sennosides-Docusate Sodium (Tab) SENOKOT S 8.6-50 MG Take 1 Tablet by mouth two times a day. Sucralfate (Tab) CARAFATE 1 g Take 1 Tablet (1 g) by mouth two times a day. traMADol HCl (Tab) ULTRAM 50 MG Take 1 Tablet (50 mg) by mouth two times daily as needed for Pain. traZODone HCl (Tab) DESYREL 150 MG Take 1 Tablet (150 mg) by mouth daily at bedtime. Umeclidinium [place] (AEROSOL POWDER, BREATH ACTIVATED) Incruse Ellipta 62.5 MCG/INH Inhale 1 Puff daily. Urea (Cream) aka CARMOL 20 % Apply topically daily. . . . . Past Psychiatric History: Follows outpatient with Dr. Panda. 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 [phone] Last prior admission was [facility]8 01/10/23, same day discharge. History of numerous prior ED visits and inpatient admissions. Chemical use History: she denies any recent use of alcohol or illicit drugs. No history of CD treatments. Past Social History: [facility] She is the only resident at this prison with extensive staffing. Mother is legal guardian. (include names, phone numbers, and document contact with guardian) Manasa [phone]; C# [phone] Past Medical History: Past Medical History: Diagnosis Date Cluster B personality disorder (HRC) 02/25/2022 Past Family History: Family History Problem Relation Age of Onset Depression Mother OCD Mother Alcohol Abuse Father Alcohol Abuse Maternal Grandfather Allergies: Allergies Allergen Reactions Nsaids Other, see comments Acute renal failure Other reaction(s): Other (see comments) Acute renal failure Acute renal failure Renal failure Acute renal failure Amantadines Ampicillin PN: LW Reaction: HIVES [place] Pineapple Unknown and Other, see comments Ziprasidone Laboratory Results: Results for orders placed or performed during the hospital encounter of 12/11/23 Clozapine, Serum Result Value Ref Range Clozapine 628 350 - 850 ng/mL Complete Blood Count-W/Diff Result Value Ref Range WBC 8.1 3.5 - 10.5 x10(9)/L RBC 2.89 (L) 3.90 - 5.03 x10(12)/L Hemoglobin 8.8 (L) 12.0 - 15.5 g/dL HCT 29.6 (L) 34.9 - 44.5 % MCV 102.4 (H) 80.0 - 100.0 fL MCH 30.4 27.6 - 33.3 pg MCHC 29.7 (L) 31.5 - 35.2 g/dL RDW 18.5 (H) 11.9 - 15.5 % Platelets 162 150 - 450 x10(9)/L Automated NRBC 0 <=0 /100 WBC Neutrophil Absolute 4.1 1.7 - 7.0 10(9)/L Lymphocyte Absolute 2.8 1.0 - 4.8 10(9)/L Monocyte Absolute 0.8 0.2 - 0.9 10(9)/L Eosinophil Absolute 0.2 0.0 - 0.5 10(9)/L Basophil Absolute 0.0 0.0 - 0.3 10(9)/L Immature Granulocyte % 0.9 (H) 0.0 - 0.5 % Valproic Acid (Depakene) Level Result Value Ref Range Valproic Acid 73 50 - 100 mcg/mL Medical Review of Systems: 10 point review of systems, including constitutional, HEENT, cardiovascular, respiratory, gastrointestinal, genitourinary, musculoskeletal, skin, endocrine, and neurologic are entirely negative unless noted in history of present illness or below. MENTAL STATUS EXAM: Vitals: 12/12/23 0618 BP: 109/63 Pulse: 72 Resp: 15 Temp: 97.5 ??F (36.4 ??C) Appearance: alert, fairly groomed and dressed in casual clothing- wearing hoodie, large build, appears stated age Behavior: engaged but sleepy, cooperative, pleasant, good eye contact, sitting on bed calmly Gait and Station: seated up in bed, no apparent abnormalities Muscle strength and tone: No apparent abnormalities, no stiffness or tremor noted in b/l UE and LE. Speech: normal in rate and volume, fluent, normal in amount and prosody, spontaneous Language: intact Thought process: concrete, simplistic Thought content: passive suicidal ideation, denies any homicidal ideation Perception: without delusions or hallucinations Associations: no loosening of association Mood: tired Affect: neutral, stable, euthymic, flat, restricted, dysphoric, elevated, full range, sad, mood congruent, mood incongruent Orientation: oriented to person, place, time, and situation Attention: intact, able to hold attention throughout entire interview Memory: recent and remote memory intact Fund of Knowledge: below average Insight: fair Judgment: chronically limited DIAGNOSIS: Adjustment disorder with disturbance of emotions and conduct Autism spectrum disorder Intellectual disability, full scale IQ of 70 noted in 2012 H/o PTSD Cluster B personality traits ASSESSMENT: 28 yo F with the above history presenting yesterday with suicidal ideation and [facility] gestures ather prison. Patient is known to me from prior ED encounters. It was recommended that she board overnight in the ED for continued observation, clozapine and depakote labs were also drawn. She had no acute events overnight and was seen by principal technical writer this morning. She does not present manic or psychotic or altered this morning. She was notably fatigued, but was polite and cooperative overall with questioning. She reports ongoing suicidal ideation, however denies any active plans or intent to harm herself. She cannot identify any recent inciting triggers for why she is feeling suicidal, and on the contrary endorses having good interactions with staff at her prison and her mother who is her guardian. She is ok with returning to her group today and requested that I speak with her psychiatrist prior to discharge. Her blood levels of CLZ and VPA were therapeutic. I spoke with the patient's outpatient psychiatrist this morning via phone call, he relayed that clozapine has been extremely helpful in decreasing the patients self injurious behavior and overall ED visits, he also was agreeable to closer follow up within the next 2 weeks given the recent ED visit. Clozapine levels are a bit on the higher end of normal, in the 600s, however as mentioned above there is a balance between thera peutic benefit vs side effects of likely sedation and some noted drooling. Overall there is no indication for inpatient psychiatric admission- her suicidal ideation is chronic in nature, she denies any active plans to hurt herself right now she does not appear acutely decompensated from a mental health standpoint, no obvious medication changes are recommended at this time either. She has very close staff monitoring at her prison and appears very well connected with outpatient mental health supports. Thus will coordinate discharge back to her prison this afternoon. Guardian was in agreement with the plan. RECOMMENDATIONS: - discharge from ED back to prison- guardian consented and OK with plan for discharge - care coordinated with Dr. Panda- discussed clozapine and depakote levels, close follow up appointment Fiona Ferreira MD 12/12/2023, 9:09 AM Staff Psychiatrist Each patient has historical, biological, social, situational, transient, substance use, and acute risk factors for both suicide and aggressive behaviors. Some of these risk factors are modifiable based on hospital intervention. Other risk factors are consistent and residual and cannot be changed. Evaluation of this information is done at initial evaluation. At discharge from the hospital modifiable risk factors are improved from initial evaluation. NICAL TESTING ENGINEER * Cheri Clancy - 12/11/2023 2:27 PM CSTAssociated Order(s): ED SOCIAL WORK CONSULT Images from the original note were not included. [facility] Emergency Department Social Work Crisis Assessment Current and Past Diagnoses: Mood Disorder (depression, bipolar), PTSD, ADHD, Other (see comments) (pervasive developmental delay; mild intellectual deficit; ODD; reactive attachment disorder) Narrative: The patient is a 28 y.o. female who comes to the ED with medics. Per report by medics patient livesin a prison. staff called to report that patient had attempted to wrap a cord around her neck last evening in attempt to kill self, and staff were able to intervene. Today patient also then attempted to kill self by attempting to cut self with a broken pencil so medics called to come to the ED. In talking with patient she states I've been feeling suicidal really bad. It's been getting worse for the past few weeks to the point that I locked myself in the bedroom last night and had the cord around my neck. The staff took that. I also put a bag over my head but they didn't know about that. This morning I tried to cut myself with a broken pencil. No, it didn't break the skin. Yes, I'm taking my medications. I'm having nightmares too about a month now but they're getting worse too. When asked about VH patient states sometimes. I saw my grandmother a few weeks ago. No, there weren't any triggers, I've just been feeling down. I am taking my medications but I don't feel like they're working anymore. I think I should be admitted to look at my meds again. I've also lost a lot of weight, like 100lb in a couple of months. I just don't want to eat. I feel nauseous every time I start to eat. I'm not sleeping unless I take 2 of the melatonin and I think that's more than normal. Information from collateral (include names and phone numbers) spoke with staff Trent ([phone] who states she's lived there 2 years, doing well overall but more depressed recently, has come to staff to talk more frequently as well. She has noticed more weight loss, but not sure how long a period of time it's been; taking meds as prescribed; more lethargic, low energy recently. Verified that she had attempted last night with the cord around her neck and staff intervened. Call to mother/guardian Ana Maria who states she's been stable for quite some time now. We thought the meds were doing well. She did start losing weight when she was placed on the clozapine about 9 months ago, but she's now had other side effects like dropping things and drooling but her psychiatristsays it's minimal and not TD. She has a hard time this time of year as she's cooped up. She also had covid a couple of weeks ago. She also had an outburst last week too where she put a cord around her neck but staff were able to talk with her and felt she didn't need to come in. Does patient have legal guardian? (include names, phone numbers, and document contact with guardian) Ana Maria Jennings [phone] who is in agreement with patient to be admitted if warranted Does the patient have access to the means or the method related to their plan while in the hospital? No Does the patient have access to the means or the method related to their plan after discharge? Yes Clinical Symptoms: Anhedonia (loss of pleasure), Anxiety and/or panic, Appetite changes, Weight changes, Visual hallucinations, Sleep disturbance, Other (see comments) (nightmares) Dangerousness (include any known information regarding historical or current homicidal, sexual, or physically aggressive behaviors): denies Current Aggression towards others: No Does the patient have access to firearms? No Suicide Assessment/SIB yes, attempted to cut self; as well putting cord around her neck and a bag over her head Current Stressors and Relevant History: None Protective Factors: Supportive social network of family or friends, Positive therapeutic relationships Family History: Not applicable Living Situation: [facility] Legal Issues (include comments regarding probation, incarcerations, etc): no Employment/Income: SSDI Mental Health Care: Car [employer] Installer: [employer] [place] [phone]; also [facility] - Agueda OchoaI[employer]check [facility] [phone] Community Providers: Dr Panda Hospitalizations: in 2021 [facility] PSYCHIATRY DISCHARGE SUMMARY Admit Date: 02/24/2022 9:19 PM Discharge Date: 03/06/2022 Attending Psychiatrist: Shreya Holland MD Discharge Diagnoses Principal Psychiatric Diagnoses: 1. Autism spectrum disorder. 2. Borderline and antisocial. 3. Intellectual disability with full-scale of IQ of 70 noted in 2012. 4. Self-injurious behavior including recently trying to choke herself and trying to drink nail japanese. 5. History of depression with psychosis versus history of bipolar disorder diagnosed at age 10, but the diagnosis has been questioned since [place] [address] Vasquez. 6. Posttraumatic stress disorder. 7. Intermittent explosive disorder. 8. History of attention deficit hyperactivity disorder before the age of 8. 9. History of reactive attachment disorder. 10. History of oppositional defiant disorder. Chemical use/abuse: Denies Current Chemical Abuse Behavior in ED: Anxious Cooperative Mental Status: Affect: Flat and Restricted Appearance: Appropriate to weather/situation Eye Contact: Engaged Insight: Limited Intellectual Functioning: Developmental delays Mood: Depressed Orientation: Person: Yes , Situation: Yes, Place: Yes , and Time: Yes Speech: Regular rate and rhythm Thought Process: Coherent and Logical Clinical decision making/rationale: admits feeling suicidal over past few weeks, attempted last evening by wrapping the cord around her neck and this morning by attempting to cut self with broken pencil; is taking medications but feels they are not working as well as in the past; states no particular stressors that would be making her feel worse lately; and mom reports she's been doing stable, coming to the ED less over past several months, but that this time of year hard for her; denies homicidal ideation; states she's experiencing nightmares, difficulty sleeping and significant weight loss Suicide Risk: Plan: after discussion with ABIDA Mello and ED consulting psychiatry, will get clozapine level, monitor overnight and reassess in AM; states they are willing to have her come back if she's no longer suicidal. MANN Reyes 12/11/2023, 2:42 PM Addendum to note: call to , spoke with Conchis that patient is stating she's no longer suicidal and wants to return to the . Informed staff that her hemoglobin level is low and should be addressed by PRIMARY CARE PHYSICIAN. She states they're aware of that and will continue to monitor, we will print a copy of the test results for them to follow up. ED consulting psychiatrist also met with patient and then spoke with her psychiatrist about the clozapine level. staff will be here within an hour to picking supervisor patient. Discussed with MANN Garcia NICAL TESTING ENGINEER documented in this encounter ED Notes * Ragini Hurtado V RN - 12/12/2023 11:06 AM CST [facility] ED Nursing Discharge Note Arrival Information: Patient arrived: Ambulance Patient escorted by: EMS/Ambulance Discharge Information: Patient discharged: Custodial - Verbal report given to returning facility: Yes - Facility name: see note, Date/Time report given: 12/22/33, Report given to: see RASHAD note, Phone number call: see SW note Patient accompanied by: Accompanied By: Self Transport mode: Mode: Walk Discharge instructions given and explained to patient: Follow up appointment review with patient: Yes Equipment and education provided to patient: Yes Patient appropriately dressed for weather: Yes Transportation arranged: Yes senior benefits manager/manager social responsibility consulted prior to discharge: Yes LDA in place: Patient verbalized understanding of discharge plan and capable of completing discharge plan: Yes Does patient require hand-off or assistance with discharge plan: Yes: Hand off of ride/discharge plan given to: prison staff Belongings and medication returned to patient and prompted to retrieve weapons: Yes Patient level of pain on discharge: (0-10) Pain Rating: Rest: 10 Holds documented by nursing during this visit - reviewed chart for most current hold status: Yes Legal Status Orders (From admission, onward) LEGAL STATUS: VOLUNTARY PER GUARDIAN NICAL TESTING ENGINEER * Ragini Hurtado RN - 12/12/2023 9:50 AM CST Patient observed to be quite groggy in room. States that she has stomach pain, denies nausea that started after she had her medications and breakfast. NICAL TESTING ENGINEER * Brady Mello PA-C - 12/11/2023 2:04 PM CST [facility] Emergency Medicine Visit Note Chief Complaint: CRISIS EVALUATION--ED Elisa Jennings is a 28 y.o. old female with developmental delay, ADHD, Cluster B personality disorder, Intermittent explosive disorder, Diabetes, CKD, Gerd And history of Pulmonary embolism presents to the ED with suicidal thoughts. Last night she attempted to hang herself. She locked herself in the bedroom and got a cord and wrapped it around her neck.But was stopped before she could tie it to anything. Today she broke a pencil and attempted to cut herself. She is on a 2-1 at her prison. She also states she sleeps with Bi Pap and cannot lay flat. Denies AH but states sometimes she sees her grandmother. Also states she has been having bad nightmares the last month. The history is provided by the patient. Triage Vitals [12/11/23 1354] Temp 97.5 ??F (36.4 ??C) Temp src Oral Pulse 94 Resp 18 BP 133/78 SpO2 98 % Physical Exam Vitals and nursing note reviewed. Constitutional: General: She is not in acute distress. Appearance: Normal appearance. She is obese. She is not ill-appearing or toxic-appearing. HENT: Head: Normocephalic and atraumatic. Nose: Nose normal. Mouth/Throat: Mouth: Mucous membranes are moist. Pharynx: Oropharynx is clear. Eyes: Conjunctiva/sclera: Conjunctivae normal. Pupils: Pupils are equal, round, and reactive to light. Neck: Vascular: No carotid bruit. Cardiovascular: Rate and Rhythm: Normal rate and regular rhythm. Pulses: Normal pulses. Heart sounds: Normal heart sounds. Pulmonary: Effort: Pulmonary effort is normal. Breath sounds: Normal breath sounds. Musculoskeletal: General: Normal range of motion. Cervical back: Normal range of motion. No tenderness. Lymphadenopathy: Cervical: No cervical adenopathy. Skin: General: Skin is warm and dry. Capillary Refill: Capillary refill takes less than 2 seconds. Neurological: General: No focal deficit present. Mental Status: She is alert and oriented to person, place, and time. Gait: Gait normal. Psychiatric: Attention and Perception: Attention normal. She perceives auditory and visual hallucinations. Mood and Affect: Affect normal. Mood is depressed. Speech: Speech normal. Behavior: Behavior normal. Behavior is cooperative. Thought Content: Thought content is not paranoid or delusional. Thought content includes suicidal ideation. Thought content does not include homicidal ideation. Thought content includes suicidal plan. Judgment: Judgment is impulsive and inappropriate. MDM: Elisa Jennings is a 28 y.o. old female presenting with SI with Plan . Nursing Note reviewed. A mental health team assessment was completed with the patient. A manager social responsibility, patient's Nurse and me were all present for the team assessment. After assessing this patient, it is my opinion that the patient does not have the means and/or intent to carryout out their suicidal plan while in the ED. The patient should be observed in Gamma pod on video monitor or by a 2:1 or 3:1 safety watch. . Vital signs as above. Exam suggests a low likelihood of an infectious or metabolic cause of current condition. asbestos removal worker consultation ordered. Based on initial physical exam and chart review lab work was not indicated at this time. Brady Mello PA-C ED Course as of 12/12/23 1015 Tue Dec 11, 2023 1456 Patient signed out pending asbestos removal worker recommendations. [JU] 1511 Sign out received, assumed care at this time. GH 2:1, wrapped cord around neck and threatened to kill self yesterday. Still SI today and stabbed forearm with pencil. Has guardian. [KN] [address] Ferreira saw patient in ED. He recommends obtaining CBC and clozapine level, asleep patient in the ED overnight and he will reassess patient morning. Will monitor overnight and assess compliance. Patient continues to state she was suicidal, her last admission she was discharged the same day so reluctant to admit at this time until further evaluation overnight in the ED. Guardian agrees with plan (mother who is here w/ patient now). She does use a CPAP at home, will need tofigure out plan on this later this evening. [KN] 1529 TRANSFER TO ED OBSERVATION The patient was transferred to observation status. Start Obs date: 12/11/2023 1525 This ED Visit note serves at the patient's observation history and physical exam. ED Observation Plan -Provide supportive care in a safe environment while the patient can be evaluated for concerns for self harm -Re-evaluate self harm symptoms after rest in a safe environment -Obtain any available collateral information to best evaluate risk of future self harm Discharge Criteria -Team is able to find a disposition that addresses self harm concerns [KN] 181 Complete Blood Count with Diff(!) Facility faxed over her last routine labs which were checked 1 week ago on 12/04 - shows hgb 8.5, UTM919.8, RDW 18.6. Overall CBC similar today, macrocytic anemia with hgb stable at 8.8. denying any acute evidence of bleeding. No leukocytosis. [KN] 182 Valproic Acid: 73 [KN] 192 Clozapine: 628 WNL. Paged HO to order clozapine while in ED. [KN] 2024 Spoke to HO, they will order her clozapine while she is here in ED [KN] SunDec 12, 2023 0130 Patient signed out pending psych eval in AM. Vol per guardian. [KN] 0138 Sign out received, assumed care at this time. [TS] 0720 Sign out received, assumed care at this time. Patient is awaiting re- evaluation by SW. Patienthas a hx of Autism, borderline and antisocial personality disorders, PTSD and intermittent explosive disorder brought to the ED from her after threatening SI. Patient has a HGB of 8.8. Per review of records, she had a HGB of 8.7 earlier this month through [facility] and it appears that her care team is aware of this. [JH] 1008 Seen by the ED Psychiatrist and SW. Recommended discharge back to her [facility]. Transportation arranged by ED RN. [JH] ED Course User Index [JH] Steve Garcia PA-C [JU] Brady Mello PA-C [KN] Tuyet Wynn PA-C [TS] Buddy Perdomo PA-C Clinical Impressions as of 12/12/23 1015 Adjustment disorder with disturbance of conduct (HRC) NICAL TESTING ENGINEER * Merary Rodríguez RN - 12/11/2023 1:45 PM CST Mode of arrival:[facility] Chief complaint: Crisis eval Symptoms/background/relevant history (narrative): Pt's staff called 911 after Pt reportedly attempted strangulation with cord last night, attempted to cut self with broken pencil. VSS. Fingerstick 69 per . Per record, Pt has ADHD, Bipolar, intellectual disabilities, PTSD. Pt is here per her psychiatric provider. Pt wanted to be admitted inpatient. On arrival to [facility], Patient was wanded by security. Team assessment of PA provider, RASHAD and RN initiated. During a TA, Pt admitted to suicide gesture with cord strangulation last night, but said she did not tighten up the noose. Denied pain or discomfort. Denied HI or AVH. Stated she had been med adherent. NICAL TESTING ENGINEER documented in this encounter Plan of Treatment Not on file documented as of this encounter Procedures Procedure Name Priority Date/Time Associated Diagnosis Comments CBC AND DIFFERENTIAL PANEL STAT 12/11/2023 5:57 PM TECHNICAL TESTING ENGINEER COMPLETE BLOOD COUNT-W/DIFF STAT 12/11/2023 5:57 PM TECHNICAL TESTING ENGINEER CLOZAPINE STAT 12/11/2023 5:57 PM TECHNICAL TESTING ENGINEER VALPROIC ACID (DEPAKENE) STAT 12/11/2023 5:57 PM TECHNICAL TESTING ENGINEER documented in this encounter Results * Valproic Acid (Depakene) Level (12/11/2023 5:57 PM TECHNICAL TESTING ENGINEER) [facility] Valproic Acid 73 50 - 100 mcg/mL 12/11/2023 6:26 PM [facility] Blood Venipuncture / Unknown 12/11/2023 5:57 PM TECHNICAL TESTING ENGINEER 12/11/2023 5:58 PM TECHNICAL TESTING ENGINEER Tuyet Wynn PA-C LAB_1 Performing Organization Address [facility]/State/[facility] Co de Phone Number [address] [phone] * (ABNORMAL) Complete Blood Count-W/Diff (12/11/2023 5:57 PM TECHNICAL TESTING ENGINEER) [facility] WBC 8.1 3.5 - 10.5 x10(9)/L 12/11/2023 6:07 PM [facility] RBC 2.89(L) 3.90 - 5.03 x10(12)/L 12/11/2023 6:07 PM [facility] Hemoglobin 8.8(L) 12.0 - 15.5 g/dL 12/11/2023 6:07 PM [facility] HCT 29.6(L) 34.9 - 44.5 % 12/11/2023 6:07 PM [facility] MCV 102.4(H) 80.0 - 100.0 fL 12/11/2023 6:07 PM [facility] MCH 30.4 27.6 - 33.3 pg 12/11/2023 6:07 PM [facility] MCHC 29.7(L) 31.5 - 35.2 g/dL 12/11/2023 6:07 PM [facility] RDW 18.5(H) 11.9 - 15.5 % 12/11/2023 6:07 PM [facility] Platelets 162 150 - 450 x10(9)/L 12/11/2023 6:07 PM [facility] Automated NRBC 0 <=0 /100 WBC 12/11/2023 6:07 PM [facility] Neutrophil Absolute 4.1 1.7 - 7.0 10(9)/L 12/11/2023 6:07 PM [facility] Lymphocyte Absolute 2.8 1.0 - 4.8 10(9)/L 12/11/2023 6:07 PM [facility] Monocyte Absolute 0.8 0.2 - 0.9 10(9)/L 12/11/2023 6:07 PM [facility] Eosinophil Absolute 0.2 0.0 - 0.5 10(9)/L 12/11/2023 6:07 PM [facility] Basophil Absolute 0.0 0.0 - 0.3 10(9)/L 12/11/2023 6:07 PM [facility] Immature Granulocyte % 0.9(H) 0.0 - 0.5 % 12/11/2023 6:07 PM [facility] Blood Venipuncture / Unknown 12/11/2023 5:57 PM TECHNICAL TESTING ENGINEER 12/11/2023 5:58 PM TECHNICAL TESTING ENGINEER Tuyet Wynn PA-C LAB_1 Performing Organization Address City/State/[facility] Co de Phone Number [id number] [place] [address] * Clozapine, Serum (12/11/2023 5:57 PM TECHNICAL TESTING ENGINEER) Clozapine 628 350 - 850 ng/mL 12/11/2023 7:21 PM [facility] Blood Venipuncture / Unknown 12/11/2023 5:57 PM TECHNICAL TESTING ENGINEER 12/11/2023 5:58 PM TECHNICAL TESTING ENGINEER Narrative [facility] - 12/11/2023 7:21 PM TECHNICAL TESTING ENGINEER There is no definitive clozapine level that is associated with efficacy or toxicity. Efficacy for the majority of patients will be highest at levels above 350 ng/mL. For some other patients, however, clozapine levels as low as 200 ng/mL will provide response or prevention of relapse. Tuyet Wynn PA-C LAB_1 [place] [address], [facility] [phone] documented in this encounter Visit Diagnoses Diagnosis Adjustment disorder with disturbance of conduct (HRC)- Primary Adjustment disorder with disturbance of conduct * Plan of Care - Sofya Hess, PharmD - 12/11/2023 8:40 PM CST [facility] Clozapine Lab Monitoring Note Elisa Jennings is a 28 y.o. female prescribed clozapine and is registered with the clozapine REMs program. Today???s lab results and monitoring recommendations per the FDA Clozapine REMS Program for the general population (patients without Benign Ethnic Neutropenia) are listed below: ANC is within Normal Range (ANC ? 1500/?L). Recommend checking ANC per patient???s current monitoring schedule (Weekly from clozapine initiation to 6 months, then every 2 weeks from 6 to 12 months, then monthly after 12 months). For treatment interruptions: if treatment has been interrupted for < 30 days, continue monitoring as before, if ? 30 days monitor as if new patient. Lab values are within acceptable limits to continue therapy and have been reported to clozapine REMs. STEEL FITTER: [id number] For questions, please contact pharmacy or visit [email or web address]. Plan to check Absolute PMN in 4 weeks on 01/10/24. Pharmacy will continue to follow. Lab Data: Absolute PMN (ANC): Neutrophil Absolute Date Value Ref Range Status 12/11/2023 4.1 1.7 - 7.0 10(9)/L Final Absolute Neutrophils Date Value Ref Range Status 06/14/2015 5.7 1.8 - 8.0 k/cmm Final NICAL TESTING ENGINEER documented in this encounter Administered Medications Inactive Administered Medications - up to 3 most recent administrations Medication Order MAR Action Action Date Dose Rate Site acetaminophen (TYLENOL) tablet 500 mg 500 mg, Oral, BID PRN, Pain/Fever, Starting on Sun12/11/23 at 1626, Until Sun12/12/23 at 1308 Given 12/12/2023 9:49 AM TECHNICAL TESTING ENGINEER 500 mg Given 12/11/2023 10:03 PM TECHNICAL TESTING ENGINEER 500 mg ALBUterol sulfate HFA inhaler 2 Puff 2 Puff, Inhalation, Q4H PRN, Shortness of Breath, Cough/Wheezing, Starting on Sun12/11/23 at 1625, Until Sun12/12/23 at 1308, Shake well amLODIPine (NORVASC) tablet 10 mg 10 mg, Oral, DAILY, First dose on Sun12/12/23 at 0800, Until Discontinued calcitriol (ROCALTROL) capsule 0.25 mcg 0.25 mcg, Oral, DAILY, First dose on Sun12/12/23 at 0800, Until Discontinued Given 12/12/2023 9:20 AM TECHNICAL TESTING ENGINEER 0.25 mcg cloZAPine (CLOZARIL) tablet 100 mg 100 mg, Oral, BID, First dose on Sun12/11/23 at 2045, Until Discontinued Given 12/12/2023 9:21 AM TECHNICAL TESTING ENGINEER 100 mg Given 12/11/2023 8:52 PM TECHNICAL TESTING ENGINEER 100 mg cyclobenzaprine (FLEXERIL) tablet 5 mg 5 mg, Enteral, TID PRN, Muscle Spasms, Starting on Sun12/11/23 at 1626, Until Sun12/12/23 at 1308 divalproex (DEPAKOTE ER) 24 hour release tablet 1,000 mg 1,000 mg, Oral, BID, First dose on Sun12/11/23 at 2000, Until Discontinued, Tablet/Capsule should be swallowed whole. HAZARDOUS DRUG Preparation: Single glove Administration: If no touch, no PPE; if handling, single glove Given 12/12/2023 9:20 AM TECHNICAL TESTING ENGINEER 1,000 mg Given 12/11/2023 7:05 PM TECHNICAL TESTING ENGINEER 1,000 mg FLUoxetine (PROZAC) capsule 30 mg 30 mg, Oral, DAILY, First dose on Sun12/12/23 at 0800, Until Discontinued Given 12/12/2023 9:21 AM TECHNICAL TESTING ENGINEER 30 mg gabapentin (NEURONTIN) capsule 100 mg 100 mg, Oral, HS, First dose on Sun12/11/23 at 2100, Until Discontinued Given 12/11/2023 8:52 PM TECHNICAL TESTING ENGINEER 100 mg haloperidol (HALDOL) tablet 2 mg 2 mg, Oral, Q4H PRN, Agitation, Anxiety, Starting on Sun12/11/23 at 1626, Until Sun12/12/23 at 1308 levothyroxine (SYNTHROID) tablet 100 mcg 100 mcg, Oral, DAILY AT 0600, First dose on Sun12/12/23 at 0600, Until Discontinued, Take on an empty stomach, one hour before meals or two hours after. Given 12/12/2023 6:36 AM TECHNICAL TESTING ENGINEER 100 mcg melatonin tablet 6 mg 6 mg, Oral, HS, First dose on Sun12/11/23 at 2100, Until Discontinued Given 12/11/2023 8:52 PM TECHNICAL TESTING ENGINEER 6 mg montelukast (SINGULAIR) tablet 10 mg 10 mg, Oral, EVENING, First dose on Sun12/11/23 at 1700, Until Discontinued Given 12/11/2023 7:05 PM TECHNICAL TESTING ENGINEER 10 mg ondansetron (ZOFRAN-ODT) disintegrating tablet 4 mg 4 mg, Oral, ONCE, On Sun12/11/23 at 1915, For 1 dose, Do not swallow tablet whole. Allow to dissolve on the tongue without chewing. Given 12/11/2023 7:05 PM TECHNICAL TESTING ENGINEER [address] (PROTONIX) tablet 40 mg 40 mg, Oral, DAILY AT 0600, First dose on Sun12/12/23 at 0600, Until Discontinued, Tablet should be swallowed whole. Best when taken before a meal, but may be taken with food. Given 12/12/2023 6:36 AM TECHNICAL TESTING ENGINEER 40 mg senna (SENOKOT) tablet 1 Tablet 1 Tablet, Oral, BID, First dose on Sun12/11/23 at 2045, Until Discontinued, Do not give for loose stools in the last 12 hours. Given 12/12/2023 9:20 AM TECHNICAL TESTING ENGINEER 1 Tablet Given 12/11/2023 8:52 PM TECHNICAL TESTING ENGINEER 1 Tablet documented in this encounter Active and Recently Administered Medications Times are shown in TECHNICAL TESTING ENGINEER. Scheduled Medication Order 12/10/2023 12/11/2023 12/12/2023 amLODIPine (NORVASC) tablet 10 mg 10 mg, Oral, DAILY, First dose on Sun12/12/23 at 0800, Until Discontinued 920 (Not Given - Provider: Ragini Jacques RN - Reason: Order parameters not met) calcitriol (ROCALTROL) capsule 0.25 mcg 0.25 mcg, Oral, DAILY, First dose on Sun12/12/23 at 0800, Until Discontinued 919 (Given - Provid er: Ragini Jacques RN - Comment: pt sleeping) cloZAPine (CLOZARIL) tablet 100 mg 100 mg, Oral, BID, First dose on Sun12/11/23 at 2044, Until Discontinued 2051 (Given - Provider: Jackeline Luo RN) 920 (Given - Provider: Ragini Jacques RN - Comment: pt sleeping) divalproex (DEPAKOTE ER) 24 hour release tablet 1,000 mg 1,000 mg, Oral, BID, First dose on Sun12/11/23 at 2000, Until Discontinued, Tablet/Capsule should be swallowed whole. HAZARDOUS DRUG Preparation: Single glove Administration: If no touch, no PPE; if handling, single glove 1904 (Given - Provider: Patti Golden RN) 919 (Given - Provider: Ragini Jacques RN - Comment: Sleeping) FLUoxetine (PROZAC) capsule 30 mg 30 mg, Oral, DAILY, First dose on Sun12/12/23 at 0800, Until Discontinued 920 (Given - Provid er: Ragini Jacques RN - Comment: pt sleeping) gabapentin (NEURONTIN) capsule 100 mg 100 mg, Oral, HS, First dose on Sun12/11/23 at 2100, Until Discontinued 2051 (Given - Provider: Jackeline Luo RN) levothyroxine (SYNTHROID) tablet 100 mcg 100 mcg, Oral, DAILY AT 0600, First dose on Sun12/12/23 at 0600, Until Discontinued, Take on an empty stomach, one hour before meals or two hours after. 0636 (Given - Provid er: Jason Dumont RN) melatonin tablet 6 mg 6 mg, Oral, HS, First dose on Sun12/11/23 at 2100, Until Discontinued 2051 (Given - Provider: Jackeline Luo, [place]) montelukast (SINGULAIR) tablet 10 mg 10 mg, Oral, EVENING, First dose on Sun12/11/23 at 1700, Until Discontinued 1904 (Given - Provider: Patti Golden, [place]) ondansetron (ZOFRAN-ODT) disintegrating tablet 4 mg (COMPLETED) 4 mg, Oral, ONCE, On Sun12/11/23 at 1915, For 1 dose, Do not swallow tablet whole. Allow to dissolve on the tongue without chewing. 1904 (Given - Provider: Patti Golden, [place]) pantoprazole DR (PROTONIX) tablet 40 mg 40 mg, Oral, DAILY AT 0600, First dose on Sun12/12/23 at 0600, Until Discontinued, Tablet should be swallowed whole. Best when taken before a meal, but may be taken with food. 635 (Given - Provid er: Jason Dumont RN) senna (SENOKOT) tablet 1 Tablet 1 Tablet, Oral, BID, First dose on Sun12/11/23 at 204, Until Discontinued, Do not give for loose stools in the last 12 hours. 2051 (Given - Provider: Jackeline Luo RN) 0920 (Given - Provider: Ragini Jacques RN - Comment: pt sleeping) PRN Medication Order 12/10/2023 12/11/2023 12/12/2023 acetaminophen (TYLENOL) tablet 500 mg 500 mg, Oral, BID PRN, Pain/Fever, Starting on Sun12/11/23 at 1626, Until Sun12/12/23 at 1308 2203 (Given - Provider: Jackeline Luo RN) 0949 (Given - Provider: Ragini Hurtado V, [place]) ALBUterol sulfate HFA inhaler 2 Puff 2 Puff, Inhalation, Q4H PRN, Shortness of Breath, Cough/Wheezing, Starting on Sun12/11/23 at 1625, Until Sun12/12/23 at 1308, Shake well cyclobenzaprine (FLEXERIL) tablet 5 mg 5 mg, Enteral, TID PRN, Muscle Spasms, Starting on Sun12/11/23 at 1626, Until Sun12/12/23 at 1308 haloperidol (HALDOL) tablet 2 mg 2 mg, Oral, Q4H PRN, Agitation, Anxiety, Starting on Sun12/11/23 at 1626, Until Sun12/12/23 at 1308 documented in this encounter Care Teams Loan Secretary Relationship Specialty Start Date End Date No Primary/Referring, Phy PCP - General 06/26/22 documented as of this encounter
--- OUTSIDE RECORDS SUMMARY | 2023-12-27 07:52 | XMS_ITS | Encounter Summary ---
Author Name Unknown Organization [facility] Address [address] [place] [address] Care Team Providers Care Control System Manager Name Role Phone No Primary/Referring, Phy Primary Care Provider Unavailable Reason for Visit * Reason Comments BREATHING PROBLEM Encounter Details Date Type Department Care Team Description 01/08/2023 Nurse Triage Careline [address] [place], [place] [id number] Unknown, Physician [address] [place] [address] BREATHING PROBLEM Social History Tobacco Use Types Packs/Day Years Used Date Smoking Tobacco: Never Smokeless Tobacco: Never Sex and Gender Information Value Date Recorded Sex Assigned at Not on file Gender Identity Not on file Sexual Orientation Not on file documented as of this encounter Nursing Notes * Apoorva Mata RN - 01/08/2023 10:01 PM CST Verified patient identity: yes Per Jw the wound care physician at the [facility] this pt is living at.Jw is not a nurse Situation/Background (brief explanation of current symptoms/situation): pt is having difficulty breathing Reviewed with patient pertinent medical history (as it related to the call): yes because this chartcome from outside sources([facility](it is unknown if this list is complete. 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 ASA Plavix Incuse Ellipta Singular Albuterol neb and inhaler These medication relate to the call. Reason for Disposition History of prior blood clot in leg or lungs (i.e., deep vein thrombosis, pulmonary embolism) Answer Assessment - Initial Assessment Questions 1. RESPIRATORY STATUS: Describe your breathing? (e.g., wheezing, shortness of breath, unable to speak, severe coughing) Pt stated that she feels SOB. When I asked during the 911 questions she stated that she is not struggling for every breath. 2. ONSET: When did this breathing problem begin? About 7:30. PM tonight. 3. PATTERN Does the difficult breathing come and go, or has it been constant since it started? It is constant. 4. SEVERITY: How bad is your breathing? (e.g., mild, moderate, severe) - MILD: No SOB at rest, mild SOB with walking, speaks normally in sentences, can lay down, no retractions, pulse < 100. - MODERATE: SOB at rest, SOB with minimal exertion and prefers to sit, cannot lie down flat, speaksin phrases, mild retractions, audible wheezing, pulse 100-120. - SEVERE: Very SOB at rest, speaks in single words, struggling to breathe, sitting hunched forward,retractions, pulse > 120 Yes while sitting. Pt is talking and this sql report writer can hear her. She is able to answer questions without taking a breath in between words. 5. RECURRENT SYMPTOM: Have you had difficulty breathing before? If Yes, ask: When was the last time? and What happened that time? When she had pneumonia. 6. CARDIAC HISTORY: Do you have any history of heart disease? (e.g., heart attack, angina, bypasssurgery, angioplasty) Pt stated that 3 years ago she had a blood clot in the chamber of her heart. 7. LUNG HISTORY: Do you have any history of lung disease? (e.g., pulmonary embolus, asthma, emphysema) asthma 8. CAUSE: What do you think is causing the breathing problem? Cough 9. OTHER SYMPTOMS: Do you have any other symptoms? (e.g., dizziness, runny nose, cough, chest pain, fever) Cough and Pain below her Right breast. This pt goes to [facility] and because of that I may not have all her medical diagnosis or medications listed. In her med list is ASA Plavix, this could explain the blood clot she had. Because we have med list from out side of it is not known if she still takes these two meds. The person that I am talking to is not a nurse. She does also talk inhalers pt stated that she does have Asthma and these meds are on her list Singular Albuterol inhaler and Neb Incuse Ellipta Inhaler Pt BP was taken before the call and was 127/80 with HR of 83. This sql report writer asked if they had a O2 oximeter and they do. The other person working with Jw stated that it was not working well. It was 85% when first put on then 88% and then 91% all with in 5 seconds. we did leave it on her finger and it stayed at 91%. Protocols used: Breathing [id number] Jw stated that they have to call people in to help get pt up as it takes 3 people. They will send her to the [facility] ER as soon as the help comes. Advised patient/caller to call back CareLine if there are further questions or concerns or to be seen if situation becomes emergent. The CareLine is available 18/06. Apoorva Mata RN 01/08/2023, 11:01 PM CAL STAFF MANAGER * Jessica Hill - 01/08/2023 9:58 PM CST Verified patient identity using three identifiers: Yes Caller's relationship to patient: Other Staff from [facility] Do you get your primary care at a or PN clinic: No/Other [facility] Clinics Select Member: No Are you calling about a positive COVID result: No Symptoms Describe the reason for call/symptoms (include location and duration if applicable): Staff states patient is stating she is having difficulty breathing. Staff doesn't see this. Plan:Caller transferred directly to CareLine nurse. CAL STAFF MANAGER documented in this encounter Plan of Treatment Not on file documented as of this encounter Visit Diagnoses Not on filedocumented in this encounter Care Teams Control System Manager Relationship Specialty Start Date End Date No Primary/Referring, Phy PCP - General 06/26/22 documented as of this encounter
--- OUTSIDE RECORDS SUMMARY | 2023-12-27 07:52 | XMS_ITS | Encounter Summary ---
Author Name Unknown Organization [facility] Address [id number], [place] [address] Care Team Providers Care First Beater Name Role Phone No Primary/Referring, Phy Primary Care Provider Unavailable Reason for Visit * Reason Comments Suicidal Encounter Details Date Type Department Care Team Description 12/26/2023 9:29 PM RECREATION PROGRAM SPECIALIST - Present Emergency [facility] [address] [place] [address] [phone] Social History Tobacco Use Types Packs/Day Years [...] Comments Blood Pressure 133/84 12/26/2023 9:36 PM RECREATION PROGRAM SPECIALIST Pulse 87 12/26/2023 9:36 PM RECREATION PROGRAM SPECIALIST Temperature 36.3 ??C (97.4 ??F) 12/26/2023 9:36 PM CS T Respiratory Rate 20 12/26/2023 9:36 PM RECREATION PROGRAM SPECIALIST Oxygen Saturation 100% 12/26/2023 9:36 PM RECREATION PROGRAM SPECIALIST Inhaled Oxygen Concentration - - Weight - - Height - - Body Mass Index - - documented in this encounter Consult Notes * Cody Romero - 12/26/2023 10:30 PM CSTAssociated Order(s): ED SOCIAL WORK CONSULT [facility] Social Work Crisis Assessment Current and Past Diagnoses: Cluster B Personality disorders or traits (i.e. Borderline, Antisocial,Histrionic, Narcissistic), Mood Disorder (depression, bipolar), Conduct problems (antisocial behavior, aggression, impulsivity) Principal Psychiatric Diagnoses: 1. Autism spectrum disorder. 2. Borderline and antisocial. 3. Intellectual disability with full-scale of IQ of 70 noted in 2011. 4. Self-injurious behavior including recently trying to choke herself and trying to drink nail mauritian. 5. History of depression with psychosis versus history of bipolar disorder diagnosed at age 10, but the diagnosis has been questioned since [place] [address] Vasquez. 6. Posttraumatic stress disorder. 7. Intermittent explosive disorder. 8. History of attention deficit hyperactivity disorder before the age of 8. 9. History of reactive attachment disorder. 10. History of oppositional defiant disorder. Narrative: The patient is a 28 y.o. female who comes to the ED with medics. Patient arrives from [facility] where patient attempted to hang herself with her CPAP cords and attempted to eat batteries. Group Homestaff was able to prevent her from doing this. Patient was reported to be violent towards PD and was cooperative for transport. Patient reports current suicidal ideation. Patient reports hitting her head on the linn repeatedlyat the [facility] tonight. Patient states that she has been feeling suicidal since Sunday. Patient denies any particular triggers or life stressors that have led to her feeling this way. Patient articulates having a lack of coping skills. Patient acknowledges that she has multiple staff present with her all day and night. Patient does not articulate any problems or concerns with staff at this time. She reiterates that she feels like she wants to hurt herself. Patient further states that if she is sent back to the [place] [facility] while she feels this way, she will continue to attempt to harm herself. Patient asked what do I have to do to get admitted. SW spoke with patient about her desire for admission. Patient stated that she feels she wants to be admitted because she wants her medications adjusted. Patient states that she med with her outpatient psychiatrist a few weeks ago and he declined to change her medications (she later said that he increased her Abilify). Patient feels her medications are no longer working. Patient presently indicating that she is wanting a second opinion about her medications and that she is unable to feel or keep herself safe outside of the hospital. After speaking with patient's staff, RASHAD spoke with patient again. SW asked patient about her phone conversation with her mother earlier today as it sound like until that conversation she had been having a good day and there were no overt signs of concern. Patient stated that she does not remember a call with her mother today and states that she has been feeling this way since Sunday. Patientis unable or unwilling to offer any insight as to what transpired these evening that prompted her to begin to try to harm herself. Information from collateral (include names and phone numbers) [facility] Staff, # is . uncomfortable with patient's return tonight. Their concern is that even if patient states she is no longer having a desire to harm herself, she is likely to re-engage in similar behaviors to get herself sent back to the Emergency Department tonight if this is where she wants to be. Patient was seemingly having a good day until a phone call with her mother at 6:30pm. During the phone call patient asked her mom to purchase a number of items for her. Mother declined. When patient got off the phone (and in the hours that followed) patient became increasingly upset and began to take the actions described above to harm herself and staff intervened to prevent her from doing so and called for assistance. If patient is discharged tonight, indicated patient would need BLS transport as they are unable to come pick patient up. Does patient have legal guardian? (include names, phone numbers, and document contact with guardian) Yes. mother Rodgers, . Left message, requested return phone call. Does the patient have access to the means or the method related to their plan while in the hospital? Yes Does the patient have access to the means or the method related to their plan after discharge? Yes Clinical Symptoms: Anhedonia (loss of pleasure), Helpless, Hopelessness or despair, Impulsivity, Sleep disturbance Dangerousness (include any known information regarding historical or current homicidal, sexual, or physically aggressive behaviors): Chart history of physical aggression Current Aggression towards others: Yes: Reportedly violent with police tonight, cooperative with medics and in ED. Does the patient have access to firearms? No Suicide Assessment/SIB - Current suicidal ideation, states she will hurt herself if she is forced to return to her [facility] system Current Stressors and Relevant History: Triggering events leading to humiliation, shame, and/or despair (e.g. loss of relationship, financial or health status) (real or anticipated) Protective Factors: None Family History: Not applicable Living Situation: long term 3:1 staff: resident ratio during the day 2:1 ratio at night. Legal Issues (include comments regarding probation, incarcerations, etc): None reported Employment/Income: Unemployed Mental Health Care: Plant Utility Person: Yes Care Providers - Dr. Panda - Psychiatry Hospitalizations: Yes Chemical use/abuse: Denies Current Chemical Abuse Behavior in ED: Cooperative Mental Status: Affect: Restricted Appearance: Unremarkable Eye Contact: Engaged Insight: Intact Intellectual Functioning: Intellectual disability Mood: Euthymic/neutral and Irritable Orientation: Person: Yes , Situation: Yes, Place: Yes , and Time: Yes Speech: Regular rate and rhythm Thought Process: Coherent Clinical decision making/rationale: Patient presents to ED with suicidal ideation and stated intentto harm herself. Patient resides in [facility] [place] [facility] and [facility] her from doing so. Patient endorses depressive symptoms and states shewants there medications adjusted. Patient affirms recent contact with her outpatient psychiatrist resulted in the increase in one of her medications and no changes on the others. Patient unable to contract for safety at this time. unwilling to have patient return to [facility] if patient is still endorsing thoughts or plans to hurt herself. Suicide Risk: Plan: Reassess Legal Status: Voluntary Discussed with: Steve CHOI, SERVICE CENTER COORDINATOR 12/26/2023, 10:31 PM EATION PROGRAM SPECIALIST documented in this encounter ED Notes * Joe Means, RN - 12/26/2023 10:18 PM CST Pt is awake, resting in room. Calm and cooperative. Will continue to monitor. EATION PROGRAM SPECIALIST * Steve Garcia PA-C - 12/26/2023 9:32 PM CST [facility] Visit Note Chief Complaint: Suicidal HPI 28 yo female with a hx of developmental delay, ADHD, Cluster B personality disorder, Intermittent explosive disorder, Diabetes, CKD and GERD brought to the ED by EMS from her [place] [facility] after she tried to strangle herself with a cord and then tried to ingest batteries. Elisa reports I am just not happy. She states that she ate soap, tried to wrap her CPAP tubing around her neck, banged her head, tried to ingest batteries and tried to cut her wrist with a wooden piece for a traci basket. She denies any HI. She denies any physical complaints or recent illnesses. Per medics, patient BS was 156. Triage Vitals [12/26/232135] Temp 97.4 ??F (36.3 ??C) Temp src Oral Pulse 87 Resp 20 BP 133/84 SpO2 100 % Physical Exam General: sitting on the exam table in NAD. Alert and interactive. Head: atraumatic Eyes: corneas clear and conjunctivae clear. No scleral icterus. Neck: Spontaneous ROM. Chest/Pulmonary: No tachypnea CV: radial pulse with a regular rate and rhythm. Musculoskel/Extremities: Moving all extremities. No open wounds to the forearms. Fistula to right upper arm. Skin: no diaphoresis Neuro: speech clear, gait stable Psych: Affect neutral. Limited insight and judgement. Making some eye contact. MDM: vitals are stable. Elisa is calm here. She denies any physical complaints. RASHAD met with Elisa and spoke to her . They would accept her back. However, if she is still complaining of SI, they areconcerned that they would not be able to control her behavior. RASHAD again discussed returning to her . Elisa would not contract for safety. She had a medication list and her morning medications were ordered. TRANSFER TO ED OBSERVATION The patient was transferred to observation status. Start Obs date: 12/26/20232230 This ED Visit note serves at the [...] a disposition that addresses self harm concerns 2305: Elisa complained of some abdomen pain. I met with her. Appeared in no distress. Difficult time describing the pain. No nausea, vomiting or diarrhea today. No urinary symptoms. Exam: Abdomen: soft, non-tender throughout with no rebound tenderness, and no tenderness. Negative Holland's sign. Exam is reassuring at this time. Will try a dose of Maalox. Steve Garcia PA-C ED Course as of 12/27/23 0737 Uzma Dec 27, 2023 0100 Sign out received, assumed care at this time. [MATTEO] 0700 Patient signed out pending SW re-evaluation. [MATTEO] 0736 Sign out received, assumed care at this time. [SS] ED Course User Index [MATTEO] Jaclyn Solitario PA-C [SS] Zhen Dickson PA-C EATION PROGRAM SPECIALIST documented in this encounter Plan of Treatment Not on file documented as of this encounter Visit Diagnoses * Plan of Care - Asaf Sandoval, PharmD - 12/26/2023 10:45 PM CST Images from the original note were not included. [facility]apine Lab Monitoring Note Elisa Jennings [...] and have been reported to clozapine REMs. For questions, please contact pharmacy or visit [email or web address]. Plan to check Absolute PMN in 2 weeks. Pharmacy will continue to follow. Lab Data: Absolute PMN (ANC): Neutrophil Absolute Date Value Ref Range Status 12/11/2023 4.1 1.7 - 7.0 10(9)/L Final Absolute Neutrophils Date Value Ref Range Status 06/14/2015 5.7 1.8 - 8.0 k/cmm Final EATION PROGRAM SPECIALIST * Triage Assessment Note - Joe Means, RN - 12/26/2023 9:36 PM RECREATION PROGRAM SPECIALIST Pt arrives via EMS from [facility]. Pt attempted to hang herself with her CPAP cords and attempted to eat batteries. Retirement staff was able to prevent her from doing this. Pt is a 3 to 1 watch at her [place] [facility]. She was violent towards PD, but was cooperative for transport. Blood Sugar 156 by medics. Upon arrival pt calm and cooperative, allows vital signs. Awaiting team assessment. Pt wanded by security, placed on 15 min roundings. EATION PROGRAM SPECIALIST documented in this encounter Administered Medications Active Administered Medications - up to 3 most recent administrations Medication Order MAR Action Action Date Dose Rate Site amLODIPine (NORVASC) tablet 10 mg 10 mg, Oral, DAILY, First dose on Uzma 12/27/23 at 0800, Until Discontinued cloZAPine (CLOZARIL) tablet 100 mg 100 mg, Oral, BID, First dose on Uzma 12/27/23 at 0800, Until Discontinued divalproex (DEPAKOTE ER) 24 hour release tablet 1,000 mg 1,000 mg, Oral, BID, First dose on Sun12/27/23 at 0800, Until Discontinued, Tablet/Capsule should be swallowed whole. HAZARDOUS DRUG Preparation: Single glove Administration: If no touch, no PPE; if handling, single glove FLUoxetine (PROZAC) capsule 40 mg 40 mg, Oral, DAILY, First dose on Sun12/27/23 at 0800, Until Discontinued levothyroxine (SYNTHROID) tablet 100 mcg 100 mcg, Oral, DAILY AT 0600, First dose on Sun12/27/23 at 0600, Until Discontinued, Take on an empty stomach, one hour before meals or two hours after. pantoprazole DR (PROTONIX) tablet 40 mg 40 mg, Oral, DAILY AT 0600, First dose on Sun12/27/23 at 0600, Until Discontinued, Tablet should be swallowed whole. Best when taken before a meal, but may be taken with food. sennosides-docusate sodium (SENOKOT S) 8.6-50 MG per tablet 1 Tablet 1 Tablet, Oral, BID, First dose on Sun12/27/23 at 0800, Until Discontinued, as laxative/stimulant, stool-softening agent Inactive Administered Medications - up to 3 most recent administrations Medication Order MAR Action Action Date Dose Rate Site aluminum-magnesium hydroxide-simethicone (MYLANTA) 200-200-20 MG/5ML suspension 30 mL 30 mL, Oral, ONCE, On Sun12/26/23 at 2330, For 1 dose, Shake well before administration Given 12/26/2023 11:49 PM RECREATION PROGRAM SPECIALIST 30 mL documented in this encounter Active and Recently Administered Medications Times are shown in RECREATION PROGRAM SPECIALIST. Scheduled Medication Order 12/25/2023 12/26/2023 12/27/2023 aluminum-magnesium hydroxide-simethicone (MYLANTA) 200-200-20 MG/5ML suspension 30 mL (COMPLETED) 30 mL, Oral, ONCE, On Sun12/26/23 at 2330, For 1 dose, Shake well before administration 2349 (Given - Provider: Dalton Payton, [place]) amLODIPine (NORVASC) tablet 10 mg 10 mg, Oral, DAILY, First dose on Uzma 12/27/23 at 0800, Until Discontinued 0800 (Due) cloZAPine (CLOZARIL) tablet 100 mg 100 mg, Oral, BID, First dose on Uzma 12/27/23 at 0800, Until Discontinued 08 (Due)1999 (Due) divalproex (DEPAKOTE ER) 24 hour release tablet 1,000 mg 1,000 mg, Oral, BID, First dose on Uzma 12/27/23 at 0800, Until Discontinued, Tablet/Capsule should be swallowed whole. HAZARDOUS DRUG Preparation: Single glove Administration: If no touch, no PPE; if handling, single glove 08 (Due)1999 (Due) FLUoxetine (PROZAC) capsule 40 mg 40 mg, Oral, DAILY, First dose on Uzma 12/27/23 at 0800, Until Discontinued 0800 (Due) levothyroxine (SYNTHROID) tablet 100 mcg 100 mcg, Oral, DAILY AT 0600, First dose on Uzma 12/27/23 at 0600, Until Discontinued, Take on an empty stomach, one hour before meals or two hours after. 0600 (Due) pantoprazole DR (PROTONIX) tablet 40 mg 40 mg, Oral, DAILY AT 0600, First dose on Sun12/27/23 at 0600, Until Discontinued, Tablet should be swallowed whole. Best when taken before a meal, but may be taken with food. 0600 (Due) sennosides-docusate sodium (SENOKOT S) 8.6-50 MG per tablet 1 Tablet 1 Tablet, Oral, BID, First dose on Uzma 12/27/23 at 0800, Until Discontinued, as laxative/stimulant, stool-softening agent 799 (Due)1999 (Due) documented in this encounter Care Teams First Beater Relationship Specialty Start Date End Date No Primary/Referring, Phy PCP - General 06/26/22 documented as of this encounter
--- OUTSIDE RECORDS SUMMARY | 2023-12-27 07:52 | XMS_ITS | Encounter Summary ---
Author Name Unknown Organization [facility] Address [address] [place] [id number] Care Team Providers Care Plastics Process Hand Name Role Phone No Primary/Referring, Phy Primary Care Provider Unavailable Reason for Visit * Reason Comments Suicidal Encounter Details Date Type Department Care Team Description 06/04/2023 6:11 PM CDT - 06/04/2023 7:17 PM CDT Emergency [facility] [address] [place] [id number] Fatimah Valles, PA-C [address] [place] [id number] Corona Patel MD [address] [place] [address] Depression, unspecified depression type (Primary Dx); Suicidal ideation Discharge Disposition: Home Social History Tobacco Use Types Packs/Day Years Used Date Smoking Tobacco: Never Smokeless Tobacco: Never Alcohol Use Standard Drinks/Week Comments Never 0 (1 standard drink = 0.6 oz pur e alcohol) Sex and Gender Information Value Date Recorded Sex Assigned at Not on file Gender Identity Not on file Sexual Orientation Not on file documented as of this encounter Last Filed Vital Signs Vital Sign Reading Time Taken Comments Blood Pressure 128/87 06/04/2023 4:38 PM CDT Pulse 87 06/04/2023 4:38 PM CDT Temperature 36.6 ??C (97.8 ??F) 06/04/2023 4:38 PM CD T Respiratory Rate 18 06/04/2023 4:38 PM CDT Oxygen Saturation 95% 06/04/2023 4:38 PM CDT Inhaled Oxygen Concentration - - Weight - - Height - - Body Mass Index - - documented in this encounter Discharge Instructions * Discharge Instructions* Fatimah Valles PA-C - 06/04/2023 7:12 PM CDT We are sorry to hear about the passing of your dog. Please return to the ED as needed * Attachments The following attachments cannot be sent through Care Everywhere. * Suicidal Thoughts (Yi) documented in this encounter Medications at Time [...] + indigestion. Maximum 10 tablets/24 hours. 0 Empklqh-Ibncxydxjb-V enthol (VICKS VAPORUB EX) Apply topically underneath [...] mouth daily at bedtime. 0 nystatin (MYCOSTATIN) 180419 UNIT/GM cream Apply topically two times daily [...] as of this encounter Consult Notes * Albina Ayala, PROGRAMMING MANAGER - 06/04/2023 6:18 PM CDTAssociated Order(s): ED SOCIAL WORK CONSULT [facility] Emergency Department Social Work Crisis Assessment Current and Past Diagnoses: Mood Disorder (depression, bipolar), Conduct problems (antisocial behavior, aggression, impulsivity) (Autism) Intermittent Explosive Disorder Discharge Diagnoses per recent hospitalization in 01/18: 1. Autism spectrum disorder. 2. Borderline and antisocial personality 3. Intellectual disability with full-scale of IQ of 70 noted in 2012. 4. Posttraumatic stress disorder. 5. Intermittent explosive disorder. Narrative: The patient is a 28 y.o. female who comes to the ED with community providers . Patient is encountered by this loan underwriter in patient's assigned room in [facility]. Patient is alert and oriented. Patient is dressed in street attire. Patient presents with restricted affect. Patient appearseuthymic, at times sad. Patient's speech is regular rate, soft. Patient's thought process is vague, coherent. Patient is a questionable historian. Patient is cooperative with this assessment. Patient states that they are here in the emergency department today due to I feel like I need to be admitted- every day is worse and worse with my anxiety and depression). Pt states she lost her dogrecently and was not able to say goodbye. She states since then she has had increased SI and thinksshe needs meds changed. She confirms she has an appt with her psychiatrist Dr. Panda in the next couple days. She states she is taking all of her meds and likes her GH. She states today she was in the tub and thought about drowning herself so she got out. She endorses a h/o SA when she tied a string around her neck. She states she has engaged in SIB in the past as well but not recently. She endorses AH- seeing her grandma and denies VH. She states she does not have a therapist because her therapist wouldn't let her see the therapy animals anymore.. Patient today denies use of ETOH or drugs. Patient is requesting inpatient hospitalization for safety and stabilization. She confirms her mother is her guardian and should be contacted for decision making. Information from collateral (include names and phone numbers) Chart Review [facility] custod[facility] staff, P: [phone], Jordyn Cobb is present in [facility]. She reports pt resides at their and is the only resident (3:1 or 2:1 ratio at all times). She states today pt expressed SI and had expressed this yesterday, as well. She states today pt states she was worried she was going to drown herself so she got out of the tub on her own. There is a h/o aggression towards staff Fidelia, mother/guardian, P: [phone] Mom states they lost their dog last weekend. She states prior to this, pt was doing very well sincestarting the [place] and she only became more sad when her dog over the weekend. Pt's mom said pt's aggressive behaviors are decreasing and she was doing well. Mom confirms pt had a therapist but when the therapist stopped bringing the therapy pets, pt became disinterested in therapy. Mom is in agreement that pt does not need to be hospitalized at this time. She confirms pt has had a hard year of losses and is probably having some big feelings at this time. Does patient have legal guardian? (include names, phone numbers, and document contact with guardian) yes, mother Fidelia P: [phone] Does the patient have access to the means or the method related to their plan while in the hospital? N/A Does the patient have access to the means or the method related to their plan after discharge? N/A Clinical Symptoms: Appetite changes, Helpless, Worthless Dangerousness (include any known information regarding historical or current homicidal, sexual, or physically aggressive behaviors): pt has h/o physical aggression Current Aggression towards others: No Does the patient have access to firearms? No Suicide Assessment/SIB Pt endorses passive SI without plan or intent; states she wanted to drown herself in the pool before Current Stressors and Relevant History: Triggering events leading to humiliation, shame, and/or despair (e.g. loss of relationship, financial or health status) (real or anticipated), Relationship (inadequate social supports, social isolation, perceived burden on others, loss of important relationships) Protective Factors: Supportive social network of family or friends, Positive therapeutic relationships Family History: Not applicable Living Situation: half-way Legal Issues (include comments regarding probation, incarcerations, etc): none noted Employment/Income: SSDI Mental Health Care: Dyehouse Worker: Collateral Contacts: Guardian, Travel Nurse, Psychiatrist, Other Contact 1 Guardianship paperwork on file?: Yes Guardian Name : Fidelia Medranoon - Parent/Guardian Guardian Travel Nurse Name : Laura Pride [facility] Travel Nurse Phone : [phone] email: [email or web address]. Other Contact Name : [facility] staff Other Contact Phone : Mamta ( staff; P: [phone]) Hospitalizations: [facility] 01/10/23-01/12/23 Discharge Diagnoses: 1. Autism spectrum disorder. 2. Borderline and antisocial personality 3. Intellectual disability with full-scale of IQ of 70 noted in 2011. 4. Posttraumatic stress disorder. 5. Intermittent explosive disorder. Chemical use/abuse: Denies Current Chemical Abuse Behavior in ED: Anxious Cooperative Mental Status: Affect: Restricted Appearance: Appropriate to weather/situation Eye Contact: Variable Insight: Limited Intellectual Functioning: Developmental delays Mood: Euthymic/neutral Orientation: Person: Yes , Situation: Yes, Place: Yes , and Time: Yes Speech: Slow and Soft Thought Process: Coherent and Vague Clinical decision making/rationale: Patient's suicide risk level is moderate. Pt with the past psych history significant for ASD, Borderline and antisocial personality, Intellectual disability with full-scale of IQ of 70 noted in 2012, Posttraumatic stress disorder, and Intermittent explosive disorder.who presents to the ED with SI. Pt is experiencing passive suicidal ideation, but was able to identify protective factors, calming techniques and discuss a safety plan with , which includes utilizing crisis numbers and/or returning to the ED if SI worsens or persists. Collateral ( staff and guardian) agrees that the pt is not an immediate danger to self or others and would benefit from community resources vs inpatient hospitalization. While patient would likely benefit from treatment,pt does not meet criteria for an emergency 72 hour hold and will be d/c to per guardian approval. Plan: Patient will be discharged back to with staff. Discussed with: MANN Arroyo PA-C 06/04/2023, 6:57 PM documented in this encounter ED Notes * Patti Golden RN - 06/04/2023 7:17 PM CDT half-way staff here to take patient home * Patti Golden RN - 06/04/2023 7:[address] [facility] ED Nursing Discharge Note Arrival Information: Patient arrived: Dropped off Patient escorted by: Other Discharge Information: Patient discharged: Home Patient accompanied by: Transport mode: Discharge instructions given and explained to patient: Follow up appointment review with patient: Yes LDA in place: Patient verbalized understanding of discharge plan and capable of completing discharge plan: Yes Does patient require hand-off or assistance with discharge plan: No Belongings and medication returned to patient and prompted to retrieve weapons: Yes Patient level of pain on discharge: Holds documented by nursing during this visit - reviewed chart for most current hold status: n/a Legal Status Orders (From admission, onward) None * Fatimah Valles PA-C - 06/04/2023 5:[address] [facility] Emergency Medicine Visit Note Chief Complaint: Suicidal HPI Elisa Jennings is a 28 y.o. female with a past medical history of ADHD, mood disorder, cluster Bpersonality disorder, type 2 diabetes mellitus, mild intellectual disability, autism, bipolar 1, end-stage renal disease, DEBRA, PTSD who presents to the Emergency Department via triage for evaluation of suicidal ideation. Patient reports she is been feeling suicidal and today thought about drowning herself in the tub. She lives in a custodial but they do not monitor her when she takes a bath. Shewas previously tried to commit suicide with a string around herself. She has done some self-harm byhitting herself. She reports worsening depression and anxiety over the last few weeks. No specific t machinery rigger but her dog did a few weeks ago and the custodial when not allow her to see the dog prior to his . She reports she was taking her medications as prescribed. She denies any homicidal ideation. She denies any auditory hallucinations. She does reports she was seeing her grandma as a hallucination. Her Gram is . Her grandmother presents as a scary skeleton. Patient reports she isno longer on dialysis for her chronic kidney disease. She is been eating less. She has not been sleeping well but she was wearing her BiPAP at night as prescribed. Patient would like to be admitted Triage Vitals [06/04/23 1638] Temp 97.8 ??F (36.6 ??C) Temp src Oral Pulse 87 Resp 18 BP 128/87 SpO2 95 % Physical Exam General: cooperative, sitting on the edge of the bed and interactive Eyes: pupils mid-sized, sclera normal appearing, EOMI HENT: head atraumatic, facial structures symmetric, external ears normal appearing Neck: supple Respiratory: normal work of breathing Musculoskeletal: normal appearing extremities Skin: appropriate color for race Neuro: alert and conversant, speech clear, enamel drier grossly intact, moving all 4 extremities spontaneously Psychiatric: affect/mood normal, cooperative, sad, flat MDM: Elisa Jennings is a 28 y.o. old female presenting with Suicidal ideation. Nursing notes andchart reviewed. On arrival, vitals are reasurring. They were seen via Team Assessment in conjunction with a beef cattle farm worker and a nurse. Exam suggests a low likelihood of an infectious or metabolic cause of current condition. Medicationand Medical conditions reviewed and additional lab work was not indicated. Patient is without any physical or medical complaints at this time, low suspicion for infectious or metabolic etiology and will defer on any emergent testing at this point. Differentials include depression, anxiety, poor coping skills. Social work consult placed, they will obtain collateral as appropriate and assist with dispo planning. Remainder of ER Course as below. Fatimah Valles PA-C ED Course as of 06/04/231910Jun 04, [id number] ATTENDING: I personally saw the patient, performed wright elements of the visit, and supervised patient care with the extrusion line operator. MDM: 28 year old female with suicidal ideation. Plan psych eval, obtaining collateral. Likely admit pending reassessment [BM] 1908 After more collaterol is obtained from patient's mom and custodial, it is determined that sheis actually safe to discharge. The custodial has 2-3 staff at all times just for this patient. They will be able to more closely monitor her in the bathtub. Her mom is comfortable with this plan. [HG] ED Course User Index [BM] Corona Patel MD [HG] Fatimah Valles PA-C Clinical Impressions as of 06/04/231910 Depression, unspecified depression type documented in this encounter Plan of Treatment Not on file documented as of this encounter Visit Diagnoses Diagnosis Depression, unspecified depression type- Primary Suicidal ideation * Triage Assessment Note - Reyna Cruz RN - 06/04/2023 4:42 PM CDT Pt here with custodial staff stating she is suicidal. Pt plan was to stay in the tub and not get out if they would not bring her to the hospital. Pt states she is taking her medications and denies drug use. documented in this encounter Administered Medications Inactive Administered Medications - up to 3 most recent administrations Medication Order MAR Action Action Date Dose Rate Site OLANZapine (ZyPREXA ZYDIS) disintegrating tablet 5 mg 5 mg, Oral, ONCE, On Sun06/04/23 at 1930, For 1 dose Given 06/04/2023 7:13 PM CDT 5 mg documented in this encounter Active and Recently Administered Medications Times are shown in CDT. Scheduled Medication Order 06/02/2023 06/03/2023 06/04/2023 OLANZapine (ZyPREXA ZYDIS) disintegrating tablet 5 mg (COMPLETED) 5 mg, Oral, ONCE, On Sun06/04/23 at 1930, For 1 dose 1912 (Given - Provid er: Patti Golden RN) documented in this encounter Care Teams Plastics Process Hand Relationship Specialty Start Date End Date No Primary/Referring, Phy PCP - General 06/26/22 documented as of this encounter
--- OUTSIDE RECORDS SUMMARY | 2023-12-27 07:52 | XMS_ITS | Clinical Summary ---
Author Name Unknown Organization [employer] [facility] Aff[facility] Address [place], [place] [address] Care Team Providers Care Market President Name Role Phone Phuong Roper Primary Care Provider Fatimah Tavares DPM Unavailable Mandie Powell MD Unavailable Finesse Salomon MD Unavailable [phone] Lynne Caban MD Unavailable [phone] Cinda Lenz NP Unavailable [phone] Anastasiia Arenas PA-C Unavailable [phone] Allergies Active Allergy Reactions Criticality Noted Date Comments Amoxicillin Hives Medium 11/23/2005 Ziprasidone Ataxia,Muscle Weakness Medium 11/23/2005 L [place] Renal Failure 05/10/2015 Nsaids (Non-Steroidal Anti-Inflammatory Drug) Other - Describe In Comment Field High 04/06/2018 Acute renal failure Acute renal failure Penicillins *Unknown 10/12/2021 Amantadine Sedation High 05/10/2015 Ziprasidone Anaphylaxis High 06/20/2021 Medications Medication Sig Dispensed Refills Start Date End Date Status cyclobenzaprine (FLEXERIL) 5 mg tabletIndications:M uscle spasm Take 1 Tablet (5 mg) by mouth every 8 hours if needed for Muscle Spasm. 90 Tablet 2 Active albuterol HFA (PRO-AIR; VENTOLIN; PROVENTIL) 90 mcg/actuation inhalerIndications: Mild intermittent asthma without complication Inhale 1-2 Puffs by mouth every 4 hours if needed. for Shortness of breath or wheezing. 1 Each 0 1 Active CPAPIndications:DEBRA (obstructive sleep apnea) CPAP machine for home use at pressure 4-15cmw, nasal mask x1/3month with nasal pillows x 2/mo 1 Each 11 1 Active calcium carbonate (TUMS) 200 mg calcium (500 mg) chewable tabletIndications:G astroesophageal reflux disease without esophagitis Chew 1 Tablet (500 mg) by mouth 4 times daily if needed for Heartburn or GI Upset. 0 1 Active NebulizerIndication s:Mild intermittent asthma without complication Nebulizer, disposable neb kit x 4, reuseable neb kit x 1, mask x 1, filters x 1. Frequency of use: daily; Medication: albuterol Length of need: 99 months 1 Each 0 2 Active FLUoxetine (PROZAC) 20 mg capsule 0 2 Active FLUoxetine (PROZAC) 10 mg capsule 0 2 Active urea 20% topical 20 % creamIndications:Ca llus of foot Apply topically to affected area(s) once daily. 85 g 5 2 Active durable medical equipment (DME)Indications:Ca llus of foot,Type 2 diabetes mellitus without complication, unspecified whether skilled nursing insulin use (HC),Peripheral polyneuropathy,Pes planus, unspecified laterality,Equinus contracture of ankle Extra depth diabetic shoes, 3 pair tri layer accommodative inserts 1 Each 0 2 Active Advair Diskus 100-50 mcg/dose diskus inhaler 0 2 Active Shower ChairIndications:Le g weakness, bilateral For home use. 1 Each 0 2 Active divalproex (DEPAKOTE ER) 500 mg Extended-Release tablet Take 1,000 mg by mouth two times daily. 0 Active cholecalciferol (VITAMIN D3) 1,000 unit capsule 0 2 Active sennosides-docusate (Senna Plus) (8.6-50 mg) tabletIndications:C hronic constipation Take 1 Tablet by mouth two times daily. 180 Tablet 3 2 Active Gavilax 17 gram/dose powder 0 3 Active medication order composer Melatonin Gummies 5 mg - take 2 gummies as needed for sleep, max of 4 gummies 0 3 Active cloZAPine (CLOZARIL) 50 mg tablet Take 2 Tablets (100 mg) by mouth two times daily. 0 3 Active haloperidoL (HALDOL) 2 mg tablet 0 3 Active Accu-Chek Fastclix Lancet DrumIndications:Typ e 2 diabetes mellitus without complication, without long-term current use of insulin (HC) USE DIRECTED 200 Each 3 3 Active amLODIPine (NORVASC) 10 mg tabletIndications:H TN (hypertension) TAKE 1 TABLET BY MOUTH ONCE DAILY 90 Tablet 2 3 Active atorvastatin (LIPITOR) 40 mg tabletIndications:T ype 2 diabetes mellitus without complication, without long-term current use of insulin (HC),Mixed hyperlipidemia TAKE 1 TABLET BY MOUTH ONCE DAILY WITH EVENING MEAL 90 Tablet 2 3 Active calcitrioL (ROCALTROL) 0.25 mcg capsuleIndications: Chronic kidney disease, stage IV (severe) (HC) Take 1 Capsule (0.25 mcg) by mouth once daily. 90 Capsule 3 3 Active sucralfate (CARAFATE) 1 gram tabletIndications:G astroesophageal reflux disease without esophagitis TAKE 1 TABLET BY MOUTH TWICE DAILY BEFORE MEALS 180 Tablet 1 3 Active levothyroxine (SYNTHROID) 100 mcg tabletIndications:H ypothyroidism, unspecified type TAKE 1 TABLET BY MOUTH ONCE DAILY BEFORE BREAKFAST *1 TOTAL FILL* 90 Tablet 2 3 Active blood sugar diagnostic (Accu-Chek Guide test strips) stripIndications:Ty pe 2 diabetes mellitus without complication, without long-term current use of insulin (HC) USE TO TEST ONCE DAILY 100 Each 3 3 Active traMADoL (ULTRAM) 50 mg tabletIndications:A bdominal pain, RUQ (right upper quadrant) Take 1 Tablet (50 mg) by mouth every 6 hours if needed for Pain. 8 Tablet 5 3 Active allopurinoL (ZYLOPRIM) 100 mg tabletIndications:A cute gout of right foot, unspecified cause 1/2 tab every other day PO 15 Tablet 2 3 Active gabapentin (NEURONTIN) 100 mg capsuleIndications: Peripheral polyneuropathy Take 1 Capsule (100 mg) by mouth at bedtime. 30 Capsule 5 3 Active dulaglutide (TRULICITY) 1.5 mg/0.5 mL subcutaneous penIndications:Type 2 diabetes mellitus with chronic kidney disease, without long-term current use of insulin, unspecified CKD stage (HC) Inject 1.5 mg subcutaneous once weekly. 2 mL 5 3 Active loratadine (CLARITIN) 10 mg tabletIndications:A llergic rhinitis, unspecified seasonality, unspecified trigger Take one tablet PO daily From June 26 to August 26. May take one tablet PO daily as needed at other times of the year. 90 Tablet 3 3 Active icosapent ethyL (Vascepa) 1 gram capsuleIndications: Mixed hyperlipidemia,High triglycerides TAKE 2 CAPSULES (2G) BY MOUTH TWICE DAILY WITH MEALS *1 TOTAL FILL* 360 Capsule 3 3 Active umeclidinium (Incruse Ellipta) 62.5 mcg/actuation inhalerIndications: Mild intermittent asthma without complication Inhale 1 Puff by mouth once daily. 30 Each 5 3 Active albuterol (PROVENTIL) 0.083 % neb solutionIndications :Mild intermittent asthma without complication Inhale 3 mL (2.5 mg) via a nebulizer every 4 hours if needed for Shortness Of Breath or Wheezing. 75 mL 0 3 Active montelukast (SINGULAIR) 10 mg tabletIndications:A llergic rhinitis due to pollen, unspecified seasonality Take 1 Tablet (10 mg) by mouth at bedtime. 90 Tablet 2 3 Active pantoprazole (Protonix) 40 mg delayed-release tabletIndications:G astroesophageal reflux disease without esophagitis Take 1 Tablet (40 mg) by mouth once daily. 90 Tablet 2 3 Active Diaper,Brief, Adult,DisposableInd ications:Urge incontinence of urine For home use. 32 Each 4 Active EPINEPHrine (EPIPEN) 0.3 mg/0.3 mL injection Inject 0.3 mg intramuscular each time if needed for Allergic Reaction. 0 1 12/04/19 24 Discontinue d(Other - add note to specify (E-cancel not sent)) Active Problems Problem Noted Date Diagnosed Date T wave inversion in EKG 12/04/2023 Autism spectrum disorder 05/30/2023 Type 2 diabetes mellitus wit h chronic kidney disease, without long-term current use of insulin, unspecified CKD stage 02/05/2023 Elevated lipase 02/05/2023 02/05/2023 Chronic abdominal pain 10/30/2022 Mixed hyperlipidemia 03/22/2022 Dyslipidemia 12/22/2021 Polypharmacy 07/15/2021 Insomnia, idiopathic 06/24/2021 Allergic rhinitis due to pollen 06/24/2021 Dry mouth 06/24/2021 Mild intermittent asthma without complication Peripheral polyneuropathy 06/23/2021 Callus of foot 06/23/2021 Flatfoot 06/23/2021 Equinus contracture of ankle 06/23/2021 PDD (pervasive developmental disorder) DEBRA (obstructive sleep apnea) 06/22/2021 HTN (hypertension) 06/22/2021 Morbid obesity with BMI of 45.0-49.9, adult 05/27 Chronic constipation 06/22/2021 Poor nutrition 06/22/2021 Anterior scleritis, 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 Blurry vision few months, painful right eye few days. Seen as an inpatient consult 01/09/21 identified as having anterior scleritis right eye started on Pred forte. Labs negative: Quantiferon, Syphilis, ANCA, Rheumatoid Factor, CCP. ?? 01/11/21: Improving nasal sectoral hyperemia, rare cell, OCT without signs of posterior scleritis. 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 Bipolar disorder, unspecified 06/03/2012 ADHD (attention deficit hyperactivity disorder) 06/03/2012 Oppositional defiant disorder of childhood or ad olescence 06/03/2012 Mild cognitive impairment 03/05/2012 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 Vitamin D deficiency 04/17/2011 IgA deficiency 11/14/2010 Posttraumatic stress disorder 01/19/2010 Resolved Problems Problem Noted Date Diagnosed Date Resolved Date Morbid obesity with BMI of 50.0-59.9, adult 01/23/2022 08/30/2022 Hypercoagulopathy 08/24/2021 05/30/2023 Overview: history of catheter associated VTE, right atrial thrombus and pulmonary embolism CKD (chronic kidney disease) stage 5, GFR less than 15 ml/min 07/15/2021 08/30/2022 Type 2 diabetes mellitus wit h hyperosmolarity without coma, with long-term current use of insulin 07/15/2021 08/30/2022 Dry skin 06/24/2021 08/30/2022 Anemia of unknown etiology 06/24/2021 1 Body mass index (BMI) of 50. 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 08/30/2022 ESRD (end stage renal disease) on dialysis 02/18/2013 06/22/2021 Overview: Overview: Due to lithium toxicity Jun 2012, dialysis MWF at [facility] Encounters Date Type Department Care Team Description 12/17/2023 12:03 PM BUSINESS SYSTEMS ADVISOR - 12/17/2023 11:59 PM BUSINESS SYSTEMS ADVISOR Hospital Encounter [facility] [address] [place] [address] Phuong Roper DO HTN (hypertension); Abnormal EKG; Mixed hyperlipidemia; Type 2 diabetes mellitus with chronic kidney disease, without long-term current use of insulin, unspecified CKD stage (HC) 12/17/2023 Travel 12/13/2023 Orders Only [facility] [address] [facility] [place] [address] Phuong Roper, <No scans attached> 12/12/2023 Telephone [facility] [address] [facility] [place] [address] Madonna Wells 12/11/2023 Telephone [facility] [address] [place] [address] Phuong Roper, Form 12/06/2023 12:55 PM BUSINESS SYSTEMS ADVISOR - 12/06/2023 11:59 PM BUSINESS SYSTEMS ADVISOR Hospital Encounter [address] [place] [address] Phuong Roper DO Wegner, Angela V, DIRECTOR AUDIENCE MARKETING 12/06/2023 Telephone [facility] [address] [place] [address] Phuong Roper, Prior Authorization (dulaglutide (TRULICITY) 1.5 mg/0.5 mL subcutaneous pen - APPROVED 12/12/2023- 9) 12/06/2023 Travel 12/04/2023 12:57 PM BUSINESS SYSTEMS ADVISOR - 12/04/2023 11:59 PM BUSINESS SYSTEMS ADVISOR Hospital Encounter [address] [place] [address] Phuong Roper DO Wegner, Angela V, DIRECTOR AUDIENCE MARKETING 12/04/2023 11:20 AM BUSINESS SYSTEMS ADVISOR Office Visit [address] [place] [address] Phuong Roper DO Follow Up 12/04/2023 Orders Only [address] [place] [address] Phuong Roper DO 1 scan: (1-Ord) 12/04/2023 12/03/2023 Orders Only [facility] Scanner 1 scan: (1-Ord) [facility], CBC PLT DF, 12/03/2023 12/03/2023 Travel 11/30/2023 Telephone [facility] [address] [place] [phone] Phuong Roper, DO Form 11/22/2023 9:35 AM BUSINESS SYSTEMS ADVISOR Telemedicine [facility] [address] [place] [phone] Tamara Crawford MD Telehealth 11/22/2023 Orders Only [facility] [id number] [place] [phone] Phuong Roper, DO <No scans attached> 11/22/2023 Travel 11/21/2023 Refill [facility] [address] [place] [phone] Phuong Roper, Refill Request (MONTELUKAST 10MG/PANTOPRAZOLE 40MG DR) 11/15/2023 Telephone [facility] [address] [place] [phone] Phuong Roper, fyi (fyi) 11/13/2023 Telephone [facility] [address] [place] [phone] Phuong Roper, Form 11/12/2023 Telephone [facility] [address] [place] [phone] Phuong Roper DO Questions; Form (Conchis from [employer] is following up regarding EKG) 11/09/2023 Telephone [facility] [address] [place] [address] Phuong Roper DO Lab 11/06/2023 Orders Only [facility] [id number] [place] [phone] Phuong Roper DO 2 scans: (2-Ord) EKG ORDER 11/05/2023 12:45 PM BUSINESS SYSTEMS ADVISOR Nurse/Clinic Staff Only [facility] [address] [facility] [place] [address] Cardiovascular Diagnostic Testing (EKG PER DR. ROPER ) 11/05/2023 Travel 11/02/2023 1:34 PM BUSINESS SYSTEMS ADVISOR - 11/02/2023 11:59 PM BUSINESS SYSTEMS ADVISOR Hospital Encounter [address] [address] Phuong Roper DO ZionPatti valerio V, DIRECTOR AUDIENCE MARKETING 11/02/2023 Travel 11/02/2023 Orders Only [facility] [address] [place] [phone] Phuong Roper DO <No scans attached> 10/30/2023 Refill [facility] [address] [place] [phone] Phuong Roper DO Refill Request (GABAPENTIN 100MG) 10/29/2023 8:20 AM BUSINESS SYSTEMS ADVISOR Office Visit [facility] [address] [facility] [place] [address] Buddy Copeland MD Allergies (FOOD CHALLENGE-PINEAPPLE) 10/29/2023 Telephone [facility] [address] [place] [phone] Phuong Roper DO Medication Problem (needs change ) 10/29/2023 Travel 10/28/2023 Refill [facility] [address] [place] [phone] Phuong Roper DO Refill Request (Albuterol) 10/23/2023 2:30 PM BUSINESS SYSTEMS ADVISOR - 10/23/2023 11:59 PM BUSINESS SYSTEMS ADVISOR Hospital Encounter [address] [address] Phuong Roper DO Rein, Erik, PT Left leg pain 10/23/2023 Travel 10/16/2023 Refill [facility] [address] [place] [address] Phuong Roper, Refill Request (INCRUSE ELPT 62.5 MCG) 10/16/2023 Refill [facility] [address] [place] [phone] Phuong Roper, Refill Request (Vascepa) 10/03/2023 10:30 AM BUSINESS SYSTEMS ADVISOR Office Visit [facility] [address] [address] Cinda Lenz ENGINEERING COORDINATOR Follow Up (3 month, renal); Medication Management 10/03/2023 Travel 10/01/2023 3:20 PM BUSINESS SYSTEMS ADVISOR Orders Only [facility] [address] [place] [address] Lab, [facility] 10/01/2023 9:40 AM BUSINESS SYSTEMS ADVISOR Telemedicine [address] [phone] Phuong Roper DO 10/01/[address] [phone] Phuong Roper, 10/01/2023 Travel 09/27/2023 11:00 AM CDT Office Visit [facility] [address] [place] [address] Lashae Estrada PA Consult ( SINUS CONGESTION) 09/26/2023 Travel from Last 3 Months Immunizations Name Administration Dates Next Due DTaP 03/28/2002, 8,1997,07/17,1997 HIB PRP-T (ActHIB,Hiberix) 07/01/1998,,1997,05/22 HPV 9 (Gardasil 9) 01/20/2009,08/12/2008, 008 Hepatitis A (Adult) 10/15/2009,02/25/2009 Hepatitis A (Peds),Unspecified 10/15/2009,2008 Hepatitis A, Unspecified 10/17/2009,02/25/2009 Hepatitis B (Adult) 03/11/2014, 3,1997,05/22,1997 Hepatitis B (Peds) 03/11/2014,08/12/2013 Hepatitis B, Unspecified 03/11/2014,07/27,1997,05/22,1997 Hib Conjugate, Unspecified 07/01/1998,,1997,05/22 Human Papilloma Virus Vaccine 01/20/2009, 008,05/14/2008 Inactivated Polio Vaccine 03/28/2002 Influenza A (H1N1), Inactivated 10/18/2009 Influenza Virus, Unspecified 10/31/2020, 08/20/2018,09/16/2014,08/20,09/19/2012,08/02/2011,08/31/2010 ,10/18/2009,08/02/2009,08/02/2009,07/27 Influenza, High-dose Quadriv alent Inactivated 08/20/2013 Influenza, IIV3 (Age 6-35 mos) 08/20/2013,2010,08/31/2010 Influenza, IIV3 (Age >=3 years) 09/19/2012 Influenza, IIV4 12/04/2023,,08/20/2018,04/26 MMR 03/28/2002,07/01/1998 Meningococcal Vaccine (Menactra) 04/26/2015,07/28,05/07/2008 Meningococcal Vaccine (Menomune) 08/20/2013,04/26 Meningococcal Vaccine (Menveo) 08/20/2013 Oral Polio Vaccine 03/28/2002, 7,1997,05/22 Pneumococcal Conj 20-valent (Prevnar 20) 12/04/2023 Pneumococcal Poly,23-Valent (Pneumovax) 08/20/2013 Pneumococcal conj 13-Valent (Prevnar 13) 07/23/2012 Recombivax Hb (dialysis) 08/12/2013 Tdap 04/30/2017,08/12/2008 Tetanus Toxoid 08/10/2008 Tuberculin Skin Test, Unspecified 05/02/2019, Varicella Vaccine 02/21/2009,07/24/2008,07/01/19 98 Family History Medical History Relation Name Comments No Known Problems Father Pancreatitis Mother Pulmonary embolism Mother Relation Name Status Comments Father Other Never met fathe r Mother Alive Social History Tobacco Use Types Packs/Day Years Used Date Smoking Tobacco: Never Smokeless Tobacco: Never Tobacco Cessation:Counseling Given: Yes Alcohol Use Standard Drinks/Week Comments Not Currently 0 (1 standard drink = 0.6 oz pur e alcohol) PHQ-2 Answer Date Recorded PHQ-2 TOTAL SCORE 2 06/25/2023 Social Connections Answer Date Recorded Frequency of Communication with Friends and Fami ly 0 05/23/2023 Financial Resource Strain Answer Date R ecorded Difficulty of Paying Living Expenses 3 05/23/2023 Difficulty of Paying Living Expenses Not on file 05/23/2023 Food Insecurity Answer Date Recorded Worried About Running Out of Food in the Last Ye ar 1 05/23/2023 Transportation Needs Answer Date Record ed Lack of Transportation (Medical) 1 05/23/2023 Housing Stability Answer Date Recorded Unable to Pay for Housing in the Last Year 1 05/23/2023 Sex and Gender Information Value Date Recorded Sex Assigned at Not on file Gender Identity Not on file Sexual Orientation Not on file Obstetrics History Last Filed Vital Signs Vital Sign Reading Time Taken Comments Blood Pressure 122/78 12/04/2023 11:23 AM BUSINESS SYSTEMS ADVISOR Pulse 100 12/04/2023 11:23 AM BUSINESS SYSTEMS ADVISOR Temperature 36.5 ??C (97.7 ??F) 10/29/2023 8:45 AM CS T Respiratory Rate 18 09/27/2023 11:12 AM CDT Oxygen Saturation 99% 10/29/2023 8:45 AM BUSINESS SYSTEMS ADVISOR Inhaled Oxygen Concentration - - Weight 96.6 kg (213 lb) 12/04/2023 11:23 AM BUSINESS SYSTEMS ADVISOR Height 167 cm (5' 5.75) 10/29/2023 8:45 AM BUSINESS SYSTEMS ADVISOR Body Mass Index 34.64 10/29/2023 8:45 AM BUSINESS SYSTEMS ADVISOR Plan of Treatment Upcoming Encounters Date Type Department Care Team (Late st Contact Info) Description 01/07/2024 11:00 AM BUSINESS SYSTEMS ADVISOR Office Visit [facility] [address] [address] Jaclyn oLja MD [address] [facility] [address] [place] [address] 01/08/2024 11:45 AM BUSINESS SYSTEMS ADVISOR Office Visit [facility] [address] [place] [address] Phuong Roper DO [address] [place] [address] 01/15/2024 2:15 PM BUSINESS SYSTEMS ADVISOR Appointment [facility] [address] [place] [address] Levy Langford, PT [address] [place] [address] Health Maintenance Due Date Last Done Comments Pap test for age 21-65 11/06/2020 7 (Verified in Care Everywhere or Patient Record) COVID-19 vaccine series (2 - Yobani risk series) 05/27/2021 04/29/2021 Depression screening for age 12+ 06/28/2024 06/28/2023, 06/26/2023, 06/26/2023, Additional history exists BMI (ht and wt on same day) for age 18+ 10/29/2024 10/29/2023, 07/23/2023, 07/09/2023, Additional history exists Tetanus booster 04/30/2027 04/30/2017, 08/12/2008 HPV series for age 9-26 Completed 01/20/20, 01/20/2009, 08/12/2008, Additional history exists Hepatitis B series for Diabetes Completed 03/11/2014, 03/11/2014, 03/11/2014, Additional history exists Tdap Completed 04/30/2017, 08/12/2008 Hepatitis C screening for ag e 18-79 Completed 05/25/2023 HIV for age 15-65 Completed 10/01/2023 Influenza for age 9-49 Completed , 10/31/2020, 10/31/2020, Additional history exists Pneumococcal series for age 6-64 Completed 12/04/2023, 08/20/2013, 07/23/2012 Medical Devices Implanted Type Area Mail Delivery Supervisor Device Identifier Shelf Expiration Date Model / Serial / Lot [facility] [id number] - [id number] Implanted:Qty: 1 on 05/10/2015 by Sandy Miranda MD at [facility] N/A: Uterus 12/25/2020 [facility] [phone] [id number] Description:Paragard IUD [facility] [id number]. lot# [id number] Procedures Procedure Name Priority Date/Time Associated Diagnosis Comments STRESS TEST EXERCISE DONE WITH STRESS ECHO Routine 12/17/2023 2:01 PM BUSINESS SYSTEMS ADVISOR HTN (hypertension) Abnormal EKG Mixed hyperlipidemia Type 2 diabetes mellitus with chronic kidney disease, without long-term current use of insulin, unspecified CKD stage (HC) ECHO STRESS EXRCSE W CNTRST W COLOR W LTD DOPPLER Routine 12/17/2023 1:59 PM BUSINESS SYSTEMS ADVISOR HTN (hypertension) Abnormal EKG Mixed hyperlipidemia Type 2 diabetes mellitus with chronic kidney disease, without long-term current use of insulin, unspecified CKD stage (HC) SCAN-STRESS TEST 12/17/2023 12:0 0 AM BUSINESS SYSTEMS ADVISOR TSH WITH REFLEX Routine 12/04/2023 12:55 PM BUSINESS SYSTEMS ADVISOR Hair thinning RETICULOCYTES Routine 12/04/2023 12:55 PM BUSINESS SYSTEMS ADVISOR Anemia of unknown etiology IRON PLUS IRON BINDING CAP Routine 12/04/2023 12:55 PM BUSINESS SYSTEMS ADVISOR Anemia of unknown etiology VITAMIN B12 Routine 12/04/2023 12:55 PM BUSINESS SYSTEMS ADVISOR Anemia of unknown etiology CBC W PLT NO DIFF Routine 12/04/2023 12: 55 PM BUSINESS SYSTEMS ADVISOR Anemia of unknown etiology EKG 12 LEAD Routine 12/04/2023 12:00 AM BUSINESS SYSTEMS ADVISOR HTN (hypertension) SCAN-LABORATORY REPORT 12:00 AM BUSINESS SYSTEMS ADVISOR EKG 12 LEAD Routine 11/06/2023 3:56 PM BUSINESS SYSTEMS ADVISOR Medication therapy changed IN READING EKG - NO CHARGE, COMP ONLY Routine 11/06/2023 3:55 PM BUSINESS SYSTEMS ADVISOR Medication therapy changed PHOSPHORUS Add On 10/01/2023 3:18 PM BUSINESS SYSTEMS ADVISOR Chronic kidney disease, stage IV (severe) (HC) VITAMIN D 25 (DEFICIENCY) Add On 10/01/2023 3:18 PM BUSINESS SYSTEMS ADVISOR Chronic kidney disease, stage IV (severe) (HC) URIC ACID Routine 10/01/2023 3:18 PM BUSINESS SYSTEMS ADVISOR Acute gout of right foot, unspecified cause ANTI HIV 1/2 Routine 10/01/2023 3:18 PM BUSINESS SYSTEMS ADVISOR Screen for STD (sexually transmitted disease) COMP METABOLIC PANEL Routine 10/01/2023 3:18 PM BUSINESS SYSTEMS ADVISOR Abdominal pain, generalized HEMOGLOBIN A1C SCREENING Routine 10/01/2023 3:18 PM BUSINESS SYSTEMS ADVISOR Type 2 diabetes mellitus with chronic kidney disease, without long-term current use of insulin, unspecified CKD stage (HC) LIPASE Routine 10/01/2023 3:18 PM BUSINESS SYSTEMS ADVISOR Abdominal pain, generalized from Last 3 Months Results * STRESS TEST EXERCISE DONE WITH STRESS ECHO (12/17/2023 2:01 PM BUSINESS SYSTEMS ADVISOR) Anatomical Region Laterality Modality HEART Ultrasound, O[place], Other Phuong Roper DO STRESS * ECHO STRESS EXRCSE W CNTRST W COLOR W LTD DOPPLER (12/17/2023 1:59 PM BUSINESS SYSTEMS ADVISOR) Pathologist [facility] PEAK TR VELOCITY 2.6 m/s LVEDD 4.8 cm EJECTION FRACTION 60 - 65% Anatomical Region Laterality Modality Ultrasound, Othe r, Other 12/17/2023 12:5 9 PM BUSINESS SYSTEMS ADVISOR Narrative 12/17/2023 5:38 PM BUSINESS SYSTEMS ADVISOR STRESS ECHOCARDIOGRAM GEORGE JENNINGS ? Accession#: ?? [id number] : ?1995 28 years Study Date: ?? 12/17/2023 12:59:17 PM Gender: F ?BP: ? 142/89 mmHg Height: 165.00 cm ?BSA: ?2.03 m? ? ? Weight: 97.00 kg ? Tech: ? MTS ? Referring MD: PHUONG ROPER Site: ? [facility] ([place]) Reading Location: MOBILE OP Patient Location: Outpatient. Procedure: Stress Echo, Color Doppler, Limited Spectral Doppler and Contrast. Manual. Indication for study: HTN (hypertension); Abnormal EKG; Mixed hyperlipidemia; Type 2 diabetes mellitus with chronic kidney disease, without long-term current use of insulin, unspecified CKD stage (HC) Cardiac Rhythm: Normal sinus.Study quality: Good. Final Impressions: 1. Non-diagnostic stress test with 62.6% of age predicted maximum heart rate achieved. Poor exercise duration and workload. 2. Negative stress echo for ischemia. Ischemia at a higher heart rate cannot be excluded. 3. Post stress, normal left ventricular size, increased global systolic function with an estimated EF of 70 to 75%. 4. There were no ischemic changes by EKG during stress. 5. During stress exam the patient developed dizziness and nausea. Symptoms resolved in 1 minutes. 6. Echo contrast was administered to enhance visualization of all left ventricular segments. 7. Clinical correlation advised. Stress Data: ? HR ?Systolic Diastolic Time Duration Minutes Seconds Baseline 66 bpm ?142 ?89 mmHg ?4 :2 ?Peak ? 121 bpm ?? 132 ?80 mmHg Max Pred HR ?193 % of Max ? 63% ?? Reddy Treadmill Score 2 Double Product [id number] Echo Findings:This is a negative stress echo test for ischemia. Post stress, normal left ventricular size, increased global systolic function with an estimated EF of 70 to 75%. LV regional wall motion abnormalities are not present post exercise. EKG:During exercise, the patient developed normal sinus and sinus tachycardia rhythm with nonspecific ST-T wave changes. There were no ischemic changes by EKG during stress. During exercise 0.[address] segment depression developed in leads II, III and aVF and V4,V5, and V6. Exam Protocol:The patient presents with no significant symptoms at baseline. The patient exercised 4 min 2 sec to stage II according to the Manual protocol. Test terminated due to Nausea and dizziness. 7.0 METS were achieved. The patient achieved a heart rate of 121 bpm which is 62.6% of maximum predicted heart rate. Maximum systolic blood pressure was 132 [place] [address]. Non-diagnostic stress test with 62.6% of age predicted maximum heart rate achieved. The blood pressure response was flat. Exercise duration and workload were poor. The patient developed dizziness and nausea during the stress exam. Symptoms resolved with rest. Symptoms resolved in 1 minutes. Intermediate (1-3% annual mortality rate) non invasive risk stratification. Exercise stress test Reddy Treadmill Score of 2. Chamber Sizes and Function Normal left ventricular size, normal global systolic function with an estimated EF of 60 - 65%. LV regional wall motion abnormalities are not present. Valves, RV Pressures and Diastolic Function The aortic valve is trileaflet, no stenosis and trivial regurgitation. The mitral valve is normal in structure, trace mitral regurgitation. The tricuspid valve is normal in structure. Tricuspid regurgitation is mild. The tricuspid regurgitant velocity is 2.6 m/s, the estimated right ventricular systolic pressure is 28 mmHg plus right atrial pressure. There is borderline increased estimated pulmonary pressure by tricuspid regurgitation velocity and right atrial pressure. Masses, Effusion, Shunts There is no pericardial effusion. MEASUREMENTS AND CALCULATIONS 2-D Measurements and LV Function: LVID (d) 4.8 cm LV FS% (2D) 37 % LVID (s) 3.0 cm HR ?66 bpm IVS (d) ??1.0 cm LVPW (d) 0.8 cm Tricuspid Valve and estimated PA pressures: TR Vmax 2.6 m/s TR maxG 28 mmHg Contrast documentation: 4 ml diluted Definity, lot #[id number], [facility]# [id number] was administered peripherally to enhance visualization of all left ventricular segments. . This study was interpreted by an [facility] accredited facility. ??Final ?? Procedure Note Shaheed Cabrales MD - 12/17/2023 STRESS ECHOCARDIOGRAM GEORGE JENNINGS : 1995 28 years Study Date: 12/17/2023 12:59:17 PM Gender: F BP: 142/89 mmHg Height: 165.00 cm BSA: 2.03 m? ? ? Weight: 97.00 kg Tech: [facility] Referring MD: PHUONG ROPER Site: [facility] Reading Location: MOBILE OP Patient Location: Outpatient. Procedure: Stress Echo, Color Doppler, Limited Spectral Doppler andContrast. Manual. Indication for study: HTN (hypertension); Abnormal EKG; Mixedhyperlipidemia; Type 2 diabetes mellitus with chronic kidney disease,without long-term current use of insulin, unspecified CKD stage (HC) Cardiac Rhythm: Normal sinus.Study quality: Good. Final Impressions: 1. Non-diagnostic stress test with 62.6% of age predicted maximum heartrate achieved. Poor exercise duration and workload. 2. Negative stress echo for ischemia. Ischemia at a higher heart ratecannot be excluded. 3. Post stress, normal left ventricular size, increased global systolicfunction with an estimated EF of 70 to 75%. 4. There were no ischemic changes by EKG during stress. 5. During stress exam the patient developed dizziness and nausea.Symptoms resolved in 1 minutes. 6. Echo contrast was administered to enhance visualization of all leftventricular segments. 7. Clinical correlation advised. Stress Data: HR Systolic Diastolic Time Duration Minutes Seconds Baseline 66 bpm 142 89 mmHg 4 :2 Peak 121 bpm 132 80 mmHg Max Pred HR 193 % of Max 63% Reddy Treadmill Score 2 Double Product [id number] Echo Findings:This is a negative stress echo test for ischemia. Poststress, normal left ventricular size, increased global systolic functionwith an estimated EF of 70 to 75%. LV regional wall motion abnormalitiesare not present post exercise. EKG:During exercise, the patient developed normal sinus and sinustachycardia rhythm with nonspecific ST-T wave changes. There were noischemic changes by EKG during stress. During exercise 0.[address] segment depression developed in leads II, III and aVF andV4,V5, and V6. Exam Protocol:The patient presents with no significant symptoms atbaseline. The patient exercised 4 min 2 sec to stage II according to theManual protocol. Test terminated due to Nausea and dizziness. 7.0 METSwere achieved. The patient achieved a heart rate of 121 bpm which is 62.6%of maximum predicted heart rate. Maximum systolic blood pressure was 132mmHg [place] [address]. Non-diagnostic stress testwith 62.6% of age predicted maximum heart rate achieved. The bloodpressure response was flat. Exercise duration and workload were poor. Thepatient developed dizziness and nausea during the stress exam. Symptomsresolved with rest. Symptoms resolved in 1 minutes. Intermediate (1-3%annual mortality rate) non invasive risk stratification. Exercise stress test Reddy TreadmillScore of 2. Chamber Sizes and Function Normal left ventricular size, normal global systolic function with anestimated EF of 60 - 65%. LV regional wall motion abnormalities are notpresent. Valves, RV Pressures and Diastolic Function The aortic valve is trileaflet, no stenosis and trivial regurgitation. Themitral valve is normal in structure, trace mitral regurgitation. Thetricuspid valve is normal in structure. Tricuspid regurgitation is mild.The tricuspid regurgitant velocity is 2.6 m/s, the estimated rightventricular systolic pressure is 28 mmHg plus right atrial pressure. Thereis borderline increased estimated pulmonary pressure by tricuspidregurgitation velocity and right atrial pressure. Masses, Effusion, Shunts There is no pericardial effusion. MEASUREMENTS AND CALCULATIONS 2-D Measurements and LV Function: LVID (d) 4.8 cm LV FS% (2D) 37 % LVID (s) 3.0 cm HR 66 bpm IVS (d) 1.0 cm LVPW (d) 0.8 cm Tricuspid Valve and estimated PA pressures: TR Vmax 2.6 m/s TR maxG 28 mmHg Contrast documentation: 4 ml diluted Definity, lot #[id number], [facility]#[id number] was administered peripherally to enhance visualization of allleft ventricular segments. . This study was interpreted by an [facility] accredited facility. Final Phuong Roper DO ECHO ORD * SCAN-STRESS TEST (12/17/2023 12:00 AM BUSINESS SYSTEMS ADVISOR) Anatomical Region Laterality Modality Ultrasound, Othe r, Other Narrative 12/17/2023 12:00 AM BUSINESS SYSTEMS ADVISOR Ordered by an unspecified provider. Other Clinical Staff OTHER * TSH WITH REFLEX (12/04/2023 12:55 PM BUSINESS SYSTEMS ADVISOR) TSH 0.57 0.27 - 4.20 uIU/mL 12/04/2023 1:46 PM BUSINESS SYSTEMS ADVISOR [facility] Blood BLOOD SPECIMEN / Unknown Butterfly / Unknown 12/04/2023 12:55 PM BUSINESS SYSTEMS ADVISOR 12/04/2023 12:55 PM BUSINESS SYSTEMS ADVISOR Narrative [facility] - 12/04/2023 1:46 PM BUSINESS SYSTEMS ADVISOR In Adults, TSH values between 5.00 and 10.00 uIU/ml do not necessarily indicate the presence of Hypothyroidism. Correlation with clinical findings such as presence of goiter and/or Thyroperoxidase (TPO) Antibody may be helpful. For more information please refer to PAULETTE 2004; 291: 228-238. Phuong Roper DO CHEMISTRY [facility] [address] [place] [id number] * IRON PLUS IRON BINDING CAP (12/04/2023 12:55 PM BUSINESS SYSTEMS ADVISOR) IRON 87 37 - 145 ug/dL 12/04/2023 10:44 PM BUSINESS SYSTEMS ADVISOR [facility] UIBC (UNSATURATED) 202 112 - 347 ug/dL 12/04/2023 10:44 PM [facility] IRON BINDING CAPACITY 289 250 - 400 ug/dL 12/04/2023 10:44 PM [facility] IRON,% SATURATION 30 14 - 50 % 12/04/2023 10:44 PM [facility] Blood BLOOD SPECIMEN / Unknown Butterfly / Unknown 12/04/2023 12:55 PM BUSINESS SYSTEMS ADVISOR 12/04/2023 12:55 PM BUSINESS SYSTEMS ADVISOR Phuong Roper DO CHEMISTRY [facility] [address] [place] [address], * (ABNORMAL) CBC W PLT NO DIFF (12/04/2023 12:55 PM BUSINESS SYSTEMS ADVISOR) WHITE BLOOD COUNT 9.7 4.5 - 11.0 thou/cu mm 12/04/2023 1:19 PM [facility] RED BLOOD COUNT 2.80(L) 4.00 - 5.20 mil/cu mm 12/04/2023 1:19 PM [facility] HEMOGLOBIN 8.7(L) 12.0 - 16.0 g/dL 12/04/2023 1:19 PM [facility] HEMATOCRIT 29.0(L) 33.0 - 51.0 % 12/04/2023 1:19 PM [facility] MCV 104(H) 80 - 100 fL 12/04/2023 1:19 PM [facility] MCH 31.1 26.0 - 34.0 pg 12/04/2023 1:19 PM [facility] MCHC 30.0(L) 32.0 - 36.0 g/dL 12/04/2023 1:19 PM [facility] RDW 18.7(H) 11.5 - 15.5 % 12/04/2023 1:19 PM [facility] PLATELET COUNT 247 140 - 440 thou/cu mm 12/04/2023 1:19 PM [facility] MPV 10.5 6.5 - 11.0 fL 12/04/2023 1:19 PM BUSINESS SYSTEMS ADVISOR [facility] Blood BLOOD SPECIMEN / Unknown Butterfly / Unknown 12/04/2023 12:55 PM BUSINESS SYSTEMS ADVISOR 12/04/2023 12:55 PM BUSINESS SYSTEMS ADVISOR Phuong Roper DO HEMATOLOGY Performing Organization Address City/[facility]/ZIP Co de Phone Number [facility] [address] [place] [address] * (ABNORMAL) RETICULOCYTES (12/04/2023 12:55 PM BUSINESS SYSTEMS ADVISOR) RETIC% 2.5(H) 0.5 - 1.5 % 12/04/2023 9:18 PM BUSINESS SYSTEMS ADVISOR [facility] RETIC (ABSOLUTE) 0.07 0.03 - 0.08 mil/cu mm 12/04/2023 9:18 PM BUSINESS SYSTEMS ADVISOR [facility] Blood BLOOD SPECIMEN / Unknown Butterfly / Unknown 12/04/2023 12:55 PM BUSINESS SYSTEMS ADVISOR 12/04/2023 12:55 PM BUSINESS SYSTEMS ADVISOR Phuong Roper DO HEMATOLOGY Performing Organization Address [facility] de Phone Number [facility] [address] [place] [address], * VITAMIN B12 (12/04/2023 12:55 PM BUSINESS SYSTEMS ADVISOR) VITAMIN B12 633 232 - 1,245 pg/mL 12/04/2023 10:44 PM BUSINESS SYSTEMS ADVISOR [facility] Blood BLOOD SPECIMEN / Unknown Butterfly / Unknown 12/04/2023 12:55 PM BUSINESS SYSTEMS ADVISOR 12/04/2023 12:55 PM BUSINESS SYSTEMS ADVISOR Narrative [facility] - 12/04/2023 10:44 PM BUSINESS SYSTEMS ADVISOR Biotin supplements may cause clinically significant interference for this test assay. ??If interference is suspected, it is strongly recommended that biotin is discontinued for at least one week prior to retesting. Phuong Roper DO CHEMISTRY Performing Organization Address [facility] Co de Phone Number [facility] [address] [place] [id number], * EKG 12 LEAD (12/04/2023 12:00 AM BUSINESS SYSTEMS ADVISOR) Only the most recent of2 resultswithin the time period is included. Phuong Roper DO EKG ORD * SCAN-LABORATORY REPORT (12/03/2023 12:00 AM BUSINESS SYSTEMS ADVISOR) Scanner OTHER * IN READING EKG - NO CHARGE, COMP ONLY (11/06/2023 3:55 PM BUSINESS SYSTEMS ADVISOR) Mayra Vot DO PB - PROVIDER READI NGS * HEMOGLOBIN A1C SCREENING (10/01/2023 3:18 PM BUSINESS SYSTEMS ADVISOR) HEMOGLOBIN A1C SCREENING 5.3 <=6.4 % 10/02/2023 7:06 AM BUSINESS SYSTEMS ADVISOR [facility] Blood BLOOD SPECIMEN / Unknown Butterfly / Unknown 10/01/2023 3:18 PM BUSINESS SYSTEMS ADVISOR 10/01/2023 3:19 PM BUSINESS SYSTEMS ADVISOR Narrative [facility] - 10/02/2023 7:06 AM BUSINESS SYSTEMS ADVISOR ? (<5.7%) ?Normal ? (5.7% to 6.4%) ? Indicates prediabetes ? (>=6.5%) ? Confirms diabetes Falsely low levels may be seen with: Recent Transfusion, Recent Significant Blood Loss, Hemolytic Diseases, or Falsely elevated levels may be seen with: Untreated Anemias, Splenectomy Phuong Roper DO CHEMISTRY Performing Organization Address [facility] de Phone Number [facility] [address] [place] [id number], [place] * VITAMIN D 25 (DEFICIENCY) (10/01/2023 3:18 PM BUSINESS SYSTEMS ADVISOR) VITAMIN D TOTAL 42.7 20.0 - 80.0 ng/mL 10/03/2023 2:36 PM BUSINESS SYSTEMS ADVISOR [facility] Blood BLOOD SPECIMEN / Unknown Butterfly / Unknown 10/01/2023 3:18 PM BUSINESS SYSTEMS ADVISOR 10/01/2023 3:19 PM BUSINESS SYSTEMS ADVISOR Narrative [facility] - 10/03/2023 2:36 PM BUSINESS SYSTEMS ADVISOR ? Vitamin D Status Deficiency: ? <20 ng/mL Insufficiency: ?20-29 ng/mL Sufficiency: ?30-80 ng/mL Possible Toxicity: ??>80 ng/mL Based on [employer] recommendations Biotin supplements may cause clinically significant interference for this test assay. ??If interference is suspected, it is strongly recommended that biotin is discontinued for at least one week prior to retesting. Cinda Lenz ENGINEERING COORDINATOR SEND OUTS Performing Organization Address [facility] Co de Phone Number [facility] [address] [place] [address], * ANTI HIV 1/2 (10/01/2023 3:18 PM BUSINESS SYSTEMS ADVISOR) HIV-1/HIV-2 SCREEN Non-Reacti ve Non-Reacti ve 10/01/2023 9:00 PM BUSINESS SYSTEMS ADVISOR [facility] Comment:HIV-1 p24 and HIV-1/ HIV-2 Ab Not Detected. Blood BLOOD SPECIMEN / Unknown Butterfly / Unknown 10/01/2023 3:18 PM BUSINESS SYSTEMS ADVISOR 10/01/2023 3:19 PM BUSINESS SYSTEMS ADVISOR Phuong Roper DO SEND OUTS Performing Organization Address [facility] Co de Phone Number [facility] [address] [place] [address], * (ABNORMAL) URIC ACID (10/01/2023 3:18 PM BUSINESS SYSTEMS ADVISOR) URIC ACID 10.0(H) 2.4 - 5.7 mg/dL 10/01/2023 9:16 PM BUSINESS SYSTEMS ADVISOR [facility] Blood BLOOD SPECIMEN / Unknown Butterfly / Unknown 10/01/2023 3:18 PM BUSINESS SYSTEMS ADVISOR 10/01/2023 3:19 PM BUSINESS SYSTEMS ADVISOR Phuong Roper DO CHEMISTRY Performing Organization Address [facility] Co de Phone Number [facility] [address] [place] [address], * PHOSPHORUS (10/01/2023 3:18 PM BUSINESS SYSTEMS ADVISOR) PHOSPHORUS 4.0 2.5 - 4.5 mg/dL 10/03/2023 2:07 PM BUSINESS SYSTEMS ADVISOR [facility] Blood BLOOD SPECIMEN / Unknown Butterfly / Unknown 10/01/2023 3:18 PM BUSINESS SYSTEMS ADVISOR 10/01/2023 3:19 PM BUSINESS SYSTEMS ADVISOR Cinda Lenz NP CHEMISTRY Performing Organization Address [facility] Co de Phone Number [facility] [address] [place] [address], * LIPASE (10/01/2023 3:18 PM BUSINESS SYSTEMS ADVISOR) LIPASE 48.8 13.0 - 60.0 IU/L 10/01/2023 9:16 PM BUSINESS SYSTEMS ADVISOR [facility] Blood BLOOD SPECIMEN / Unknown Butterfly / Unknown 10/01/2023 3:18 PM BUSINESS SYSTEMS ADVISOR 10/01/2023 3:19 PM BUSINESS SYSTEMS ADVISOR Phuong Roper DO CHEMISTRY Performing Organization Address [facility] Co de Phone Number [facility] [address] [place] [address], * (ABNORMAL) COMP METABOLIC PANEL (10/01/2023 3:18 PM BUSINESS SYSTEMS ADVISOR) SODIUM 141 136 - 145 mmol/L 10/01/2023 9:16 PM BUSINESS SYSTEMS ADVISOR [facility] POTASSIUM 3.8 3.5 - 5.1 mmol/L 10/01/2023 9:16 PM BUSINESS SYSTEMS ADVISOR [facility] CHLORIDE 101 98 - 107 mmol/L 10/01/2023 9:16 PM BUSINESS SYSTEMS ADVISOR [facility] CO2,TOTAL 22 22 - 29 mmol/L 10/01/2023 9:16 PM [facility] ANION GAP 18 5 - 18 10/01/2023 9:16 PM [facility] GLUCOSE 140(H) 70 - 99 mg/dL 10/01/2023 9:16 PM [facility] CALCIUM 10.1(H) 8.6 - 10.0 mg/dL 10/01/2023 9:16 PM [facility] BUN 18 6 - 20 mg/dL 10/01/2023 9:16 PM [facility] CREATININE 2.90(H) 0.50 - 0.90 mg/dL 10/01/2023 9:16 PM [facility] BUN/CREAT RATIO 6(L) 10 - 20 9:16 PM [facility] eGFR 22(L) >90 mL/min/1.7 3m2 10/01/2023 9:16 PM [facility] Comment:As of 2022, eG FR is calculated by the CKD-EPI creatinine equation without race adjustment. ??eGFR can be influenced by muscle mass, exercise, and diet. ??The reported eGFR is an estimation only and is only applicable if the renal function is stable. ALBUMIN 3.4(L) 4.0 - 4.9 g/dL 10/01/2023 9:16 PM [facility] PROTEIN,TOTAL 6.9 6.0 - 8.0 g/dL 10/01/2023 9:16 PM [facility] BILIRUBIN,TOTAL 0.5 0.0 - 1.2 mg/dL 10/01/2023 9:16 PM [facility] ALK PHOSPHATASE 114(H) 35 - 104 IU/L 10/01/2023 9:16 PM [facility] ALT (SGPT) 17 10 - 35 IU/L 10/01/2023 9:16 PM [facility] AST (SGOT) 37(H) 10 - 35 IU/L 10/01/2023 9:16 PM BUSINESS SYSTEMS ADVISOR [facility] Blood BLOOD SPECIMEN / Unknown Butterfly / Unknown 10/01/2023 3:18 PM BUSINESS SYSTEMS ADVISOR 10/01/2023 3:19 PM BUSINESS SYSTEMS ADVISOR Phuong Roper DO CHEMISTRY [facility] [address] [place] [address], from Last 3 Months Advance Directives Latest Code Status on File Code Status Date Activated Date Inactivated Comments Full Code 06/02/2012 4:20 PM 06/04/2012 5:18 PM Code Status History Code Status Date Activated Date Inactivated Comments Full Code 11/23/2005 3:16 PM 12/07/2005 3:11 PM Care Teams Market President Relationship Specialty [place] [address] [place] [address] PCP - General Family Practice 06/22/21 Fatimah Tavares DPM [address] [place], [place] [phone] Surgery - Podiatric 06/22/21 Mandie Powell MD [address] [place], [place] [phone] Dermatology 06/22/21 Finesse Salomon MD [address] [place], [place] [phone] Surgery - Ophthalmology 06/22/21 Lynne Caban MD [address], [place] Psychiatry 09/23/21 Cinda Lenz, ENGINEERING COORDINATOR [address] [facility] [address] [address] [place], [place] [phone] Nephrology Nurse Practitioner - Adult 07/04/23 Anastasiia Arenas PA-C [address] [place] [address] Physician Gimp Tacker 07/25/23
--- OUTSIDE RECORDS SUMMARY | 2023-12-27 07:52 | XMS_ITS | Encounter Summary ---
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 POCT glucose. Blood Sugar 150 - 200 give 2 units Blood Sugar 201-250 give 4 units Blood Sugar 251-300 give 6 units Blood Sugar 301-350 give 8 units Blood Sugar greater than 350 give 10 units If Blood Sugar still greater than 350 after next POCT Glucose, notify Practitioner Given 01/12/2023 12:25 PM TYPE CUTTER 2 Units Left Arm Given 01/12/2023 8:32 AM TYPE CUTTER 2 Units Le ft Arm insulin lispro (HumALOG) injection vial 2-8 Units 2-8 Units, Subcutaneous, HS, First dose on Sun01/11/23 at 2100, Correction Scale Insulin: Blood Sugar 201-250 give 2 units Blood Sugar 251-300 give 4 units Blood Sugar 301-350 give 6 units Blood Sugar greater than 350 give 8 units If Blood Sugar still greater than 350 after next POCT Glucose, notify Practitioner Given 01/11/2023 8:42 PM TYPE CUTTER 4 Units Left Arm montelukast (SINGULAIR) tablet 10 mg 10 mg, Oral, HS, First dose on Sun01/11/23 at 2100, Until Discontinued Given 01/11/2023 8:35 PM TYPE CUTTER 10 mg OLANZapine (ZyPREXA ZYDIS) disintegrating tablet 10 mg 10 mg, Oral, ONCE PRN, Other, one hour pre-discharge transport, Starting on Sun01/12/23 at 1016, Until Sun01/12/23 at 1817, For 1 dose OLANZapine (ZyPREXA) 10 mg in sterile water 2 mL injection 10 mg, Intramuscular, ONCE PRN, Agitation, For MIAHTAPS Score 5 or greater, Starting on Sun01/11/23 at 1711, For 1 dose, Give 1x for MIAHTAPS score 5 or greater, notify Practitioner when given, communicate patient's response. DO NOT GIVE WITHIN 60 MINUTES OF PARENTERAL BENZODIAZEPINES. Add 2.1 mL of sterile water for injection to 10 mg vial of olanzapine for a final concentration of 5 mg/mL OLANZapine (ZyPREXA) tablet 5 mg 5 mg, Oral, ONCE PRN, Other, For MIAHTAPS Score 3-4, Starting on Sun01/11/23 at 1711, Until Sun01/12/23 at 1817, For 1 dose, Give 1x for MIAHTAPS score 3-4. Notify Practitioner in 60 minutes of MIAHTAPS medication administration with patient response. pantoprazole DR (PROTONIX) tablet 40 mg 40 mg, Oral, DAILY, First dose on Sun01/12/23 at 0900, Until Discontinued, Tablet should be swallowed whole. Best when taken before a meal, but may be taken with food. Given 01/12/2023 8:23 AM TYPE CUTTER 40 mg polyethylene glycol (MIRALAX) oral powder 17 g 17 g, Oral, DAILY PRN, Constipation, No stool in the last two days, Starting on Sun01/11/23 at 1711, Until Sun01/12/23 at 1817, Cumulative bowel medication orders. Administer based on medications available on MAR. If no stool in last day start Senna-S BID PRN no stool, if no stool in last 2 days add Miralax DAILY PRN no stool, if no stool in last 3 days add bisacodyl suppository DAILY PRN until patient stools. When patient stools stop giving PRN meds and continue monitoring for bowel activity. When no stools X 1 day, begin regimen again until patient stools. propranolol (INDERAL) tablet 60 mg 60 mg, Oral, TID, First dose on Sun01/11/23 at 2100, Until Discontinued Given 01/12/2023 8:22 AM TYPE CUTTER 60 mg Given 01/11/2023 8:35 PM TYPE CUTTER 60 mg sennosides-docusate sodium (SENOKOT S) 8.6-50 MG per tablet 2 Tablet 2 Tablet, Oral, BID PRN, Constipation, No stool in the last day, Starting on Uzma 01/11/23 at 1711, Until Sun01/12/23 at 1817, Cumulative bowel medication orders. Administer based on medications available on JAN. If no stool in last day start Senna-S BID PRN no stool, if no stool in last 2 days add Miralax DAILY PRN no stool, if no stool in last 3 days add bisacodyl suppository DAILY PRN until patient stools. When patient stools stop giving PRN meds and continue monitoring for bowel activity. When no stools X 1 day, begin regimen again until patient stools. sucralfate (CARAFATE) tablet 1 g 1 g, Oral, BID, First dose on Sun01/11/23 at 2100, Until Discontinued, -Give sucralfate doses at least 1 hour after and 2 hours prior to other medications to prevent decreased absorption. -If patient cannot swallow tablets whole, ok to crush or disperse each tablet in 20 mL of water and allow to stand for 5 minutes prior to administration -If giving via feeding tube: Gastric tube administration ONLY. DO NOT GIVE by jejunal tube route. -Gastric route enteral feeds should be stopped at least 1 hour before the dose and not restarted for 1 hour post-dose. -Jejunal route enteral feeds do not need to be stopped around gastric route sucralfate administration. Given 01/12/2023 8:22 AM TYPE CUTTER 1 g Given 01/11/2023 8:35 PM TYPE CUTTER 1 g traZODone (DESYREL) tablet 150 mg 150 mg, Oral, HS, First dose on Sun01/11/23 at 2100, Until Discontinued Given 01/11/2023 8:34 PM TYPE CUTTER 150 mg umeclidinium (INCRUSE ELLIPTA) 62.5 MCG/ACT inhaler 1 Puff 1 Puff, Inhalation, DAILY, First dose on Sun01/12/23 at 0900, Until Discontinued Given 01/12/2023 10:13 AM TYPE CUTTER 1 Puff documented in this encounter Active and Recently Administered Medications Times are shown in TYPE CUTTER. Scheduled Medication Order 01/10/2023 01/11/2023 01/12/2023 amLODIPine (NORVASC) tablet 10 mg 10 mg, Oral, DAILY, First dose on Sun01/12/23 at 0900, Until Discontinued 822 (Given - Provid er: Latoya Mars RN) atorvastatin (LIPITOR) tablet 40 mg 40 mg, Oral, EVENING, First dose on Sun01/11/23 at 1745, Until Discontinued, This medication is a Category X medication. Therefore, it should not be given to patients. The patient's status must be verified before administering this medication. Hazardous waste disposal required., Indications: to lower cholesterol 1900 (Given - Provider: Fer Song RN) calcitriol (ROCALTROL) capsule 0.25 mcg 0.25 mcg, Oral, DAILY, First dose on Sun01/12/23 at 0900, Until Discontinued 1020 (Given - Provid er: Latoya Mars RN) cholecalciferol (VITAMIN D3) tablet 1,000 Units 1,000 Units, Oral, DAILY, First dose on Sun01/12/23 at 0900, Until Discontinued 822 (Given - Provid er: Latoya Mars RN) cloZAPine (CLOZARIL) tablet 100 mg 100 mg, Oral, BID, First dose on Sun01/11/23 at 2100, Until Discontinued 2033 (Given - Provider: Fer Song RN) 821 (Given - Provider: Latoya Mars RN) divalproex (DEPAKOTE ER) 24 hour release tablet 1,000 mg 1,000 mg, Oral, BID, First dose on Sun01/11/23 at 2100, Until Discontinued, Tablet should be swallowed whole HAZARDOUS DRUG Preparation: Single glove Administration: If no touch, no PPE; if handling, single glove 2034 (Given - Provider: Fer Song RN) 821 (Given - Provider: Latoya Mars RN) FLUoxetine (PROZAC) capsule 30 mg 30 mg, Oral, DAILY, First dose on Sun01/12/23 at 0900, Until Discontinued 821 (Given - Provid er: Latoya Mars RN) fluticasone-vilanterol (BREO ELLIPTA) 100-25 MCG/ACT inhaler 1 Dose 1 Dose, Inhalation, DAILY, First dose on Sun01/12/23 at 0900, Until Discontinued 831 (Given - Provid er: Latoya Mars RN) gabapentin (NEURONTIN) capsule 300 mg 300 mg, Oral, HS, First dose on Sun01/11/23 at 2100, Until Discontinued 2033 (Given - Provider: Fer Song RN) insulin lispro (HumALOG) injection vial 2-10 Units(Linked Group 1) 2-10 Units, Subcutaneous, TID WITH MEALS, First dose on Sun01/12/23 at 0800, Correction Scale Insulin: Can be given with carb based insulin OR if patient is not eating or NPO, give within 15 minutes of POCT glucose. Blood Sugar 150 - 200 give 2 units Blood Sugar 201-250 give 4 units Blood Sugar 251-300 give 6 units Blood Sugar 301-350 give 8 units Blood Sugar greater than 350 give 10 units If Blood Sugar still greater than 350 after next POCT Glucose, notify Practitioner 831 (Given - Provid er: Latoya Mars RN)1224 (Given - Provider: Tanya Sutton RN) insulin lispro (HumALOG) injection vial 2-8 Units(Linked Group 1) 2-8 Units, Subcutaneous, HS, First dose on Sun01/11/23 at 2100, Correction Scale Insulin: Blood Sugar 201-250 give 2 units Blood Sugar 251-300 give 4 units Blood Sugar 301-350 give 6 units Blood Sugar greater than 350 give 8 units If Blood Sugar still greater than 350 after next POCT Glucose, notify Practitioner 2041 (Given - Provider: Fer Song RN) montelukast (SINGULAIR) tablet 10 mg 10 mg, Oral, HS, First dose on Sun01/11/23 at 2100, Until Discontinued 2034 (Given - Provider: Fer Song RN) pantoprazole DR (PROTONIX) tablet 40 mg 40 mg, Oral, DAILY, First dose on Sun01/12/23 at 0900, Until Discontinued, Tablet should be swallowed whole. Best when taken before a meal, but may be taken with food. 822 (Given - Provid er: Latoya Mars RN) propranolol (INDERAL) tablet 60 mg 60 mg, Oral, TID, First dose on Sun01/11/23 at 2100, Until Discontinued 2034 (Given - Provider: Fer Song RN) 821 (Given - Provider: Latoya Mars RN) sucralfate (CARAFATE) tablet 1 g 1 g, Oral, BID, First dose on Sun01/11/23 at 2100, Until Discontinued, -Give sucralfate doses at least 1 hour after and 2 hours prior to other medications to prevent decreased absorption. -If patient cannot swallow tablets whole, ok to crush or disperse each tablet in 20 mL of water and allow to stand for 5 minutes prior to administration -If giving via feeding tube: Gastric tube administration ONLY. DO NOT GIVE by jejunal tube route. -Gastric route enteral feeds should be stopped at least 1 hour before the dose and not restarted for 1 hour post-dose. -Jejunal route enteral feeds do not need to be stopped around gastric route sucralfate administration. 2034 (Given - Provider: Fer Song RN) 821 (Given - Provider: Latoya Mars RN) traZODone (DESYREL) tablet 150 mg 150 mg, Oral, HS, First dose on Sun01/11/23 at 2100, Until Discontinued 2033 (Given - Provider: Fer Song RN) umeclidinium (INCRUSE ELLIPTA) 62.5 MCG/ACT inhaler 1 Puff 1 Puff, Inhalation, DAILY, First dose on Sun01/12/23 at 0900, Until Discontinued 1012 (Given - Provid er: Latoya Mars RN) PRN Medication Order 01/10/2023 01/11/2023 01/12/2023 acetaminophen (TYLENOL) tablet 650 mg 650 mg, Oral, Q6H PRN, Pain/Fever, Initially give acetaminophen for patient with mild pain., Starting on Uzma 01/11/23 at 1711, Until Sun01/12/23 at 181, Initially give acetaminophen for patient with mild pain. Acetaminophen may be given WITH other pain medications as adjunct pain relief. Do not give two acetaminophen containing medications within 4 hours of each other. 0450 (Given - Provid er: Abdiel Jacques RN) bisacodyl (DULCOLAX) rectal suppository 10 mg(Linked Group 2) 10 mg, Rectal, DAILY PRN, Constipation, No stool in the last 3 days, Starting on Uzma 01/11/23 at 1711, Until Sun01/12/23 at 181, Cumulative bowel medication orders. Administer based on medications available on JAN. If no stool in last day start Senna-S BID PRN no stool, if no stool in last 2 days add Miralax DAILY PRN no stool, if no stool in last 3 days add bisacodyl suppository DAILY PRN until patient stools. When patient stools stop giving PRN meds and continue monitoring for bowel activity. When no stools X 1 day, begin regimen again until patient stools. calcium carbonate (TUMS) chewable tablet 1,000 mg 1,000 mg, Oral, Q4H PRN, Heartburn, Upset Stomach, Starting on Uzma 01/11/23 at 171, Until Sun01/12/23 at 181, For indigestion/upset stomach dextrose (D50) IVPB 25 g(Linked Group 3) 25 g, Intravenous, Q15MIN PRN, Hypoglycemia, Per Adult Hypoglycemia Treatment Protocol, Starting on Sun01/11/23 at 2003, Per Hypoglycemic episode: Give 25g IV push, recheck POCT glucose in 15 minutes, if result less than 70mg/dL, may repeat. After 2 doses notify Practitioner. May continue to treat while waiting for call back. glucagon rDNA (diagnostic) (GLUCAGEN) injection 1 mg(Linked Group 3) 1 mg, Intramuscular, Q15MIN PRN, Hypoglycemia, Per Adult Hypoglycemia Treatment Protocol, Starting on Uzma 01/11/23 at 2003, Until Sun01/12/23 at 1816, Per Hypoglycemic episode: Give 1mg IM, turn patient on side to prevent aspiration if vomits. If appropriate, establish IV access STAT. Recheck POCT glucose in 15 minutes, if result less than 70mg/dL and still no IV access, may repeat 1mg IM x 1. Recheck POCT glucose in 15 minutes, if result is less than 70mg/dL notify Practitioner. glucose (GLUTOSE) oral gel 15 g of glucose(Linked Group 3) 15 g of glucose, Oral, Q15MIN PRN, Hypoglycemia, Per Adult Hypoglycemia Treatment Protocol, Starting on Sun01/11/23 at 2004, Until Sun01/12/23 at 1816, Give 15g orally, recheck POCT glucose in 15 minutes, if result less than 70mg/dL, may repeat. After 2 doses notify Practitioner. May continue to treat while waiting for call back. 37.5g tube delivers 15g of glucose melatonin tablet 4.5 mg 4.5 mg (rounded from 5 mg), Oral, HS PRN, Sedation, Starting on Sun01/11/23 at 1716, Until Sun01/12/23 at 7 OLANZapine (ZyPREXA ZYDIS) disintegrating tablet 10 mg 10 mg, Oral, ONCE PRN, Other, one hour pre-discharge transport, Starting on Sun01/12/23 at 1016, Until Sun01/12/23 at 1816, For 1 dose OLANZapine (ZyPREXA) 10 mg in sterile water 2 mL injection(Linked Group 4) 10 mg, Intramuscular, ONCE PRN, Agitation, For MIAHTAPS Score 5 or greater, Starting on Uzma 01/11/23 at 1711, For 1 dose, Give 1x for MIAHTAPS score 5 or greater, notify Practitioner when given, communicate patient's response. DO NOT GIVE WITHIN 60 MINUTES OF PARENTERAL BENZODIAZEPINES. Add 2.1 mL of sterile water for injection to 10 mg vial of olanzapine for a final concentration of 5 mg/mL OLANZapine (ZyPREXA) tablet 5 mg(Linked Group 4) 5 mg, Oral, ONCE PRN, Other, For MIAHTAPS Score 3-4, Starting on Sun01/11/23 at 1711, Until Sun01/12/23 at 181, For 1 dose, Give 1x for MIAHTAPS score 3-4. Notify Practitioner in 60 minutes of MIAHTAPS medication administration with patient response. polyethylene glycol (MIRALAX) oral powder 17 g(Linked Group 2) 17 g, Oral, DAILY PRN, Constipation, No stool in the last two days, Starting on Uzma 01/11/23 at 1711, Until Sun01/12/23 at 1817, Cumulative bowel medication orders. Administer based on medications available on JAN. If no stool in last day start Senna-S BID PRN no stool, if no stool in last 2 days add Miralax DAILY PRN no stool, if no stool in last 3 days add bisacodyl suppository DAILY PRN until patient stools. When patient stools stop giving PRN meds and continue monitoring for bowel activity. When no stools X 1 day, begin regimen again until patient stools. sennosides-docusate sodium (SENOKOT S) 8.6-50 MG per tablet 2 Tablet(Linked Group 2) 2 Tablet, Oral, BID PRN, Constipation, No stool in the last day, Starting on Uzma 01/11/23 at 1711, Until Sun01/12/23 at 1817, Cumulative bowel medication orders. Administer based on medications available on JAN. If no stool in last day start Senna-S BID PRN no stool, if no stool in last 2 days add Miralax DAILY PRN no stool, if no stool in last 3 days add bisacodyl suppository DAILY PRN until patient stools. When patient stools stop giving PRN meds and continue monitoring for bowel activity. When no stools X 1 day, begin regimen again until patient stools. Linked Groups Order Group 1: insulin lispro (HumALOG) injection vial 2-10 UnitsJump to med 2-10 Units, Subcutaneous, TID WITH MEALS, First dose on Sun01/12/23 at 0800
Correction Scale Insulin: Can be given with carb based insulin OR if patient is not eating or NPO, give within 15 minutes of POCT glucose. Blood Sugar 150 - 200 give 2 units Blood Sugar 201-250 give 4 units Blood Sugar 251-300 give 6 units Blood Sugar 301-350 give 8 units Blood Sugar greater than 350 give 10 units If Blood Sugar still greater than 350 after next POCT Glucose, notify Practitioner
And insulin lispro (HumALOG) injection vial 2-8 UnitsJump to med 2-8 Units, Subcutaneous, HS, First dose on Sun01/11/23 at 2100
Correction Scale Insulin: Blood Sugar 201-250 give 2 units Blood Sugar 251-300 give 4 units Blood Sugar 301-350 give 6 units Blood Sugar greater than 350 give 8 units If Blood Sugar still greater than 350 after next POCT Glucose, notify Practitioner
Group 2: sennosides-docusate sodium (SENOKOT S) 8.6-50 MG per tablet 2 TabletJump to med 2 Tablet, Oral, BID PRN, Constipation, No stool in the last day, Starting on Sun01/11/23 at 1711, Until Sun01/12/23 at 1817
Cumulative bowel medication orders. Administer based on medications available on JAN. If no stool in last day start Senna-S BID PRN no stool, if no stool in last 2 days add Miralax DAILY PRN no stool, if no stool in last 3 days add bisacodyl suppository DAILY PRN until patient stools. When patient stools stop giving PRN meds and continue monitoring for bowel activity. When no stools X 1 day, begin regimen again until patient stools.
And polyethylene glycol (MIRALAX) oral powder 17 gJump to med 17 g, Oral, DAILY PRN, Constipation, No stool in the last two days, Starting on Sun01/11/23 at 1711, Until Sun01/12/23 at 1817
Cumulative bowel medication orders. Administer based on medications available on JAN. If no stool in last day start Senna-S BID PRN no stool, if no stool in last 2 days add Miralax DAILY PRN no stool, if no stool in last 3 days add bisacodyl suppository DAILY PRN until patient stools. When patient stools stop giving PRN meds and continue monitoring for bowel activity. When no stools X 1 day, begin regimen again until patient stools.
And bisacodyl (DULCOLAX) rectal suppository 10 mgJump to med 10 mg, Rectal, DAILY PRN, Constipation, No stool in the last 3 days, Starting on Sun01/11/23 at 1711, Until Sun01/12/23 at 1817
Cumulative bowel medication orders. Administer based on medications available on JAN. If no stool in last day start Senna-S BID PRN no stool, if no stool in last 2 days add Miralax DAILY PRN no stool, if no stool in last 3 days add bisacodyl suppository DAILY PRN until patient stools. When patient stools stop giving PRN meds and continue monitoring for bowel activity. When no stools X 1 day, begin regimen again until patient stools.
Group 3: glucose (GLUTOSE) oral gel 15 g of glucoseJump to med 15 g of glucose, Oral, Q15MIN PRN, Hypoglycemia, Per Adult Hypoglycemia Treatment Protocol, Starting on Sun01/11/23 at 2003, Until Sun01/12/23 at 1816
Give 15g orally, recheck POCT glucose in 15 minutes, if result less than 70mg/dL, may repeat. After 2 doses notify Practitioner. May continue to treat while waiting for call back. 37.5g tube delivers 15g of glucose
Or dextrose (D50) IVPB 25 gJump to med 25 g, Intravenous, Q15MIN PRN, Hypoglycemia, Per Adult Hypoglycemia Treatment Protocol, Starting on Sun01/11/23 at 2003
Per Hypoglycemic episode: Give 25g IV push, recheck POCT glucose in 15 minutes, if result less than 70mg/dL, may repeat. After 2 doses notify Practitioner. May continue to treat while waiting for call back.
Or glucagon rDNA (diagnostic) (GLUCAGEN) injection 1 mgJump to med 1 mg, Intramuscular, Q15MIN PRN, Hypoglycemia, Per Adult Hypoglycemia Treatment Protocol, Starting on Sun01/11/23 at 2003, Until Sun01/12/23 at 1816
Per Hypoglycemic episode: Give 1mg IM, turn patient on side to prevent aspiration if vomits. If appropriate, establish IV access STAT. Recheck POCT glucose in 15 minutes, if result less than 70mg/dL and still no IV access, may repeat 1mg IM x 1. Recheck POCT glucose in 15 minutes, if result is less than 70mg/dL notify Practitioner.
Group 4: OLANZapine (ZyPREXA) tablet 5 mgJump to med 5 mg, Oral, ONCE PRN, Other, For MIAHTAPS Score 3-4, Starting on Uzma 01/11/23 at 1711, Until 01/12/23 at 1817, For 1 dose
Give 1x for MIAHTAPS score 3-4. Notify Practitioner in 60 minutes of MIAHTAPS medication administration with patient response.
Or OLANZapine (ZyPREXA) 10 mg in sterile water 2 mL injectionJump to med 10 mg, Intramuscular, ONCE PRN, Agitation, For MIAHTAPS Score 5 or greater, Starting on Uzma 01/11/23 at 1711, For 1 dose
Give 1x for MIAHTAPS score 5 or greater, notify Practitioner when given, communicate patient's response. DO NOT GIVE WITHIN 60 MINUTES OF PARENTERAL BENZODIAZEPINES. Add 2.1 mL of sterile water for injection to 10 mg vial of olanzapine for a final concentration of 5 mg/mL
documented in this encounter Care Teams [employer] Manager Relationship Specialty Start Date End Date No Primary/Referring, Phy PCP - General 06/26/22 documented as of this encounter
--- OUTSIDE RECORDS SUMMARY | 2023-12-27 07:53 | XMS_ITS ---
Author Name Unknown Organization [facility] Address [address] [place] [address] Care Team Providers Care Geophysical Observer Name Role Phone Unavailable Unavailable Unavailable Surgery Details Not on file Complications Check Surgery Details section. Procedure Estimated Blood Loss Check Surgery Details section. Procedure Findings Check Surgery Details section. Procedure Specimens Taken Check Surgery Details section.
--- OUTSIDE RECORDS SUMMARY | 2023-12-27 07:53 | XMS_ITS | Clinical Summary ---
Author Name Unknown Organization [facility] Address [address] [place] [address] Care Team Providers Care Senior Manufacturing Technician Name Role Phone Unavailable Primary Care Provider Unavailabl e Source Comments Patient records contain information from all sites at [facility]. For routine questions regarding patient records, call [phone] during business hours, M-F 8:00 AM - 5:00 PM Central Time. Record requests for emergency care only can be directed to [phone] at any time.[facility] Allergies Active Allergy Reactions Criticality Noted Date Comments Amantadine Anaphylaxis,Other (see comments),Swelling High 04/16/2014 was overdosed by 14x; almost sedation Other reaction(s): Sedation [place] Other (see comments),Renal Failure High 01/30/2014 lithium toxicity ruined kidneys Renal failure ESKD 2 lithium ESKD 2 lithium [place] Toxicity causing renal failure Nsaids (Non-Steroidal Anti-Inflammatory Drug) Other (see comments) High 04/06/2018 Renal failure Acute renal failure Penicillins Rash,Hives (Reselect Reaction) Medium 07/17/2003 Hives with amoxicillin, has tolerated Keflex. Has tolerated Keflex Has tolerated Keflex PN: LW Reaction: HIVES [place] Other (see comments) 06/09/2020 Ziprasidone Anaphylaxis,Other (see comments) High 11/23/2005 couldn't speak, walk or control body. ( Geodon ) Lost control bladder, couldn't walk L Other reactions: Ataxia, Muscle Weakness (L) GEODON ( Geodon ) Lost control bladder, couldn't walk L Other reactions: Ataxia, Muscle Weakness (L) Medications Medication Sig Dispensed Refills Start Date End Date Status traZODone (DESYREL) 150 mg tablet Take 150 mg by mouth at bedtime. 0 07/20/2021 Active sucralfate (CARAFATE) 1 gram tablet Take 1 g by mouth 2 (two) times a day before lunch and dinner. 0 06/16/2021 Active sodium chloride (OCEAN) 0.65 % nasal spray 2 sprays. 0 Active sennosides-docusate sodium (SENOKOT-S) 8.6-50 mg per tablet Take 1 tablet by mouth 2 (two) times a day. 0 08/09/2016 Active propranoloL (INDERAL) 40 mg tablet Take 40 mg by mouth 2 (two) times a day. 0 06/22/2021 Active pantoprazole (PROTONIX) 40 mg EC tablet Take 40 mg by mouth. 0 06/22/2021 Acti ve OLANZapine (ZyPREXA) 10 mg tablet Take 1 tablet by mouth daily as needed. 0 08/02/2016 Active OLANZapine (ZyPREXA) 5 mg tablet Take 5 mg by mouth every 4 (four) hours as needed. 0 06/14/2015 Active OLANZapine (ZyPREXA) 15 mg tablet Take 15 mg by mouth at bedtime. 0 10/12/2021 Active nystatin (MYCOSTATIN) 100,000 unit/gram cream Apply topically. 0 09/23/2021 Act nany montelukast (SINGULAIR) 10 mg tablet Take 10 mg by mouth at bedtime. 0 10/12/2021 Active LORazepam (ATIVAN) 0.5 mg tablet Take 1 mg by mouth 2 (two) times a day. 0 Active loratadine 10 mg capsule Take 10 mg by mouth every morning. 0 10/27/2021 Active levothyroxine (SYNTHROID, LEVOTHROID) 100 mcg tablet Take 100 mcg by mouth. 0 06/17/2021 Active folic acid 1 mg tablet Take 1 tablet by mouth daily. 0 06/17/2021 Active FLUoxetine (PROzac) 20 mg capsule Take 20 mg by mouth. 0 06/17/2021 A ctive EPINEPHrine 0.3 mg/0.3 mL injection syringe Inject 0.3 mg intramuscularly. 0 06/24/2021 Active dulaglutide (Trulicity) 0.75 mg/0.5 mL injection Inject under the skin. 0 11/25/2021 Active cyclobenzaprine (FLEXERIL) 5 mg tablet Take 5 mg by mouth daily as needed. 0 06/16/2021 Active cholecalciferol, vitamin D3, 25 mcg (1,000 Unit) tablet Take 1,000 Units by mouth. 0 06/16/2021 Active calcium carbonate (TUMS) 500 mg (200 mg calcium) chewable tablet Chew 500 mg 3 (three) times a day as needed. And 2 tabs chewed thoroughly every hour as needed for upset stomach and indigestion. Not to exceed 10 tabs per day. 0 06/16/2021 Active amLODIPine (NORVASC) 10 mg tablet Take 1 tablet by mouth daily. 0 06/17/2021 Active albuterol 90 mcg/actuation inhaler Inhale 1-2 puffs. 0 11/14/2018 Active acetaminophen (TYLENOL) 325 mg tablet Take 650 mg by mouth 2 (two) times a day as needed. 0 11/14/2018 Active cyanocobalamin (VITAMIN B12) 1,000 mcg tablet Take 1,000 mcg by mouth daily. 0 Active polyvinyl alcohol (NU-TEARS) 1.4 % ophthalmic solution 1 drop 2 (two) times a day. +++Lubricating eye drops 0 Active triamcinolone (KENALOG) 0.1 % cream Apply 1 application topically daily as needed. Apply to affected area 0 Active FLUoxetine (PROzac) 10 mg capsule Take 10 mg by mouth every morning. 0 Active methyl salicylate-menthol (ICY HOT) 30-10 % cream Apply 1 application topically 3 (three) times a day as needed for muscle/joint pain. Apply to affected area 0 Active menthol (COUGH DROPS MM) by mucous membrane route. 0 Active ondansetron (ZOFRAN) 4 mg tablet Take 4 mg by mouth every 8 (eight) hours as needed for nausea or vomiting. 0 Active hyoscyamine (LEVSIN) 0.125 mg/5 mL elixir Take 125 mcg by mouth daily as needed for bladder spasms. 0 Active camphor-eucalyptus oiL-menthoL (VAPORUB) 4.8-1.2-2.6 % ointment Apply 1 application topically 3 (three) times a day as needed for congestion. Apply to affected area 0 Active melatonin 5 mg tablet Take 5 mg by mouth at bedtime as needed. May repeat one time for total dose of 10mg as needed at bedtime for sleep 0 Active traMADoL (ULTRAM) 50 mg tablet Take 50 mg by mouth every 6 (six) hours as needed. For pain that cannot be controlled by Tylenol 0 02/13/2022 Active fluticasone propion-salmeteroL 100-50 mcg/actuation diskus inhaler Inhale 1 puff daily. Rinse mouth with water after use to reduce aftertaste and incidence of candidiasis. Do not swallow. 0 Active urea (GORMEL) 20 % cream Apply 1 application topically 2 (two) times a day. Apply to affected area once daily 0 Active divalproex (DEPAKOTE ER) 500 mg 24 hr tablet Take 2,000 mg by mouth at bedtime. 0 Active Active Problems Problem Noted Date Diagnosed Date Dyslipidemia 12/22/2021 Other Primary Thrombophilia 08/24/2021 Chronic Kidney Disease Stage 5 Glomerular Filtration Rate Less Than 15 07/15/2021 Diabetes Mellitus Type 2 07/15/2021 Anemia 06/24/2021 Chronic Insomnia Disorder 06/24/2021 Dry Mouth Unspecified 06/24/2021 Dry Skin 06/24/2021 Rhinitis Allergic Due To Outdoor Pollen 06/24/20 Callus [place] 06/23/2021 Contracture Ankle 06/23/2021 Pes Planus 06/23/2021 Polyneuropathy 06/23/2021 Apnea Sleep Obstructive 06/22/2021 Pervasive Developmental Disorder 06/22/2021 Deficiency Nutritional 06/22/2021 Hypertension 06/22/2021 Other Constipation 06/22/2021 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 Blurry vision few months, [...] of posterior scleritis. Taper PF Q3 days Pain In Left Upper Arm 12/05/2020 Suicide Ideation 11/23/2019 Cough Unspecified Type 11/15/2019 Chronic Kidney Disease Stage 4 Glomerular Filtration Rate 15-10/27/2019 Drug Induced Obesity 10/22/2019 Body Mass Index 40.0 To 44.9 Adult 12/09/2018 Epistaxis 10/30/2018 Suicide Attempt Initial Encounter 05/11/2018 Breakdown Mechanical Of Vascular Dialysis Cathet er Initial 04/27/2018 Enterocolitis Due To Clostri dium Difficile Not Specified As Recurrent 04/21/2018 Infection And Inflammatory R eaction Due To Peritoneal Dialysis Catheter Initial 02/08/2018 Breakdown Mechanical Of Intr aperitoneal Dialysis Catheter Initial 01/28/2018 Other Pulmonary Embolism Without Acute Cor Pulmo nale 05/31/2017 Failure Renal End Stage 03/30/2017 Chronic Kidney Disease NOS 11/08/2016 Bipolar Disorder 08/23/2016 Attention Deficit With Hyperactivity Disorder Morbid Obesity Body Mass Ind ex Greater Than Or Equal To 40 Adult 08/02/2016 Failure Renal End Stage 03/23/2016 Diabetes Mellitus Type 2 03/23/2016 Dialysis Dependent 06/14/2015 Overview: Renal dialysis status Hypokalemia 06/14/2015 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 Provider to review Myopia Right 04/16/2014 Fluid Overload Unspecified 03/06/2014 Headache Unspecified 02/16/2014 Overview: Problem list name updated by automated process. 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 Bipolar Disorder 06/03/2012 Impairment Cognitive Mild 03/05/2012 Reactive Attachment Disorder Childhood 2 Impaired Glucose Tolerance 07/18/2011 Asthma Mild Intermittent 06/29/2011 Overview: Triggers: Controller: na CACT: 25 on 06/22/11 AAP:06/22/11 Recheck 12/07 Nurse education Deficiency Vitamin D 04/17/2011 Hypertriglyceridemia 04/17/2011 Deficiency Immunoglobulin A Selective 11/14/2010 Acanthosis Nigricans 02/22/2010 Intolerance Lactose 01/19/2010 Posttraumatic Stress Disorder Brief 01/19/2010 Oppositional Disorder Child Or Adolescent 2009 Attention Deficit Hyperactive Disorder 3 Overview: LW Onset: [id number] ; Attention Deficit Dis w Hyperactivity LW Onset: 05Myo44 ; Attention Deficit Dis w Hyperactivity Explosive Intermittent Disorder Immunizations Name Administration Dates Next Due 4vHPV (discontinued) 01/20/2009,08/12/2008,05/14 9vHPV 01/20/2009,08/12/2008,05/14/2008 DTaP (Infanrix, [employer]) 03/28/2002,04/1998,1997,1996,1997 H1N1 All Forms 10/18/2009 HepA Adult 10/15/2009,02/25/2009 HepA, Pediatric Unspecified 10/15/2009, 9 HepA, Unspecified 10/17/2009,02/25/2009 HepB Adult 03/11/2014, 4,08/12/2013,1997,1997,1997 HepB Dialysis 08/12/2013 HepB, Unspecified 03/11/2014, 3,1997,1996,1997 Hib, Unspecified 07/01/1998, 7,1997,1996 IPV 03/28/2002 Influenza (IM) Preservative Free 08/20/2013,05/2011,08/31/2010 Influenza TIV (IM) 08/20/2013, 2,08/02/2011,2009,10/18/2009,08/02/2009,08/12/2008 Influenza high dose QV(65 ye ars or older) (PF) 08/20/2013 Influenza, Seasonal, Injectable 09/19/2012 Influenza, Unspecified 10/31/2020,2017,09/16/2014,2013,08/20/2013,08/02/2011,08/31/2010,1 12/18/2008,08/02/2009,08/12/2008 MCV4 (Menactra)(Discontinued) 04/26/2015, 013,05/07/2008 MCV4 (Menveo) 08/20/2013 MMR 03/28/2002,07/01/1998 MPSV4 08/20/2013,05/07/2008 OPV 03/28/2002, 7,1997,1996 PCV13 07/23/2012 PPSV23(Discontinued) 08/20/2013 Tdap 04/30/2017,08/12/2008 Tetanus Toxoid, Adsorbed (discontinued) 08/10/2008 Tuberculin Skin Test, Unspecified 2018,05/02/2019,08/13/2014,2013 MARY 02/21/2009,07/24/2008,07/01/1998 influenza vaccine quad (FLUZONE/FLUARIX) (6 months and older)(PF) 10/31/2020,08/20/2018,04/26/2015 Social History Tobacco Use Types Packs/Day Years Used Date Smoking Tobacco: Never Smokeless Tobacco: Never Alcohol Use Standard Drinks/Week Comments Not Currently 0 (1 standard drink = 0.6 oz pur e alcohol) Nutrition Answer Date Recorded Nutrition: EVOO Fat Source Unknown 12/22 Nutrition: Servings of Fruits/Vegetables per Day Not on file 12/22/2021 Dental Answer Date Recorded Dental: Regular Dentist Unknown 12/22/19 Sex and Gender Information Value Date Recorded Sex Assigned at Not on file Gender Identity Not on file Sexual Orientation Not on file Last Filed Vital Signs Vital Sign Reading Time Taken Comments Blood Pressure 140/72 02/21/2022 12:08 AM CDT Pulse 88 02/21/2022 12:08 AM CDT Temperature 36.8 ??C (98.2 ??F) 02/21/2022 12:08 AM C DT Respiratory Rate 16 02/21/2022 12:08 AM CDT Oxygen Saturation 98% 02/21/2022 12:08 AM CDT Inhaled Oxygen Concentration - - Weight 150 kg (330 lb 11 oz) 02/21/2022 12:06 AM CDT Height 166.4 cm (5' 5.5) 12/22/2021 1:59 AM DIRECTOR OF MARKETING COMMUNICATIONS Body Mass Index 54.19 12/22/2021 1:59 AM DIRECTOR OF MARKETING COMMUNICATIONS Plan of Treatment Health Maintenance Due Date Last Done Comments Diabetic Office Visit with F oot Exam 1997 Dilated Eye Exam 1997 Office Visit for Blood Press ure Check / Re-check 1997 Urine Albumin 1997 Hemoglobin A1C 01/24/2021 07/27/2020, 040 05/2020, 07/04/2018, Additional history exists COVID-19 Vaccine (2 - Jansse n risk series) 05/27/2021 04/29/2021 Asthma Action Plan 12/22/2021 Asthma Control Test Questionnaire 12/22/2021 Cervical Cancer Screening 02/20/2022 02/20/2019 Lipid (Cholesterol) Screening 09/04/2022, 02/12/2020, 08/20/2019, Additional history exists Potassium Level 01/01/2023 01/01/2022, 11/27, 09/03/2021, Additional history exists Creatinine Level (Kidney Fun ction Test) 02/02/2023 02/02/2022, 01/01/2022, 12/22/2021, Additional history exists Sodium Level 02/02/2023 02/02/2022, 04/2022, 12/22/2021, Additional history exists Thyroid Stimulating Hormone (TSH) test for thyroid function 02/02/2023 02/02/2022, 09/04/2021, 08/02/2016 Depression Screening (Annual PHQ-2) 11/26/2023 DTaP,Tdap,and Td Vaccines (8 - Td or Tdap) 04/30/2027 04/30/2017, 08/12/2008, 03/28/2002, Additional history exists HPV Vaccines Completed 01/20/2009, 12/28, 08/12/2008, Additional history exists Hepatitis B Vaccines Completed 03/11/2014, 03/11/2014, 03/11/2014, Additional history exists HIV Screening Completed 11/23/2016, 08/02/2016 Glucose Test for Med Monitoring Discontinued 02/02/2022, 01/01/2022, 12/22/2021, Additional history exists Influenza Vaccine Completed 12/04/2023, , 10/31/2020, Additional history exists Pneumococcal vaccine (0-64 years) Completed 12/04/2023, 08/20/2013, 07/23/2012 Advance Directives For more information, please contact: [phone] Documents on File Type Date Recorded Patient Organic Preparation Analyst Expl anation Advance Directives 03/21/2016 12:00 AM Leg acy document. See document viewer. Advance Directives 03/17/2016 12:00 AM Leg acy document. See document viewer.
--- OUTSIDE RECORDS SUMMARY | 2023-12-27 07:53 | XMS_ITS | Referral Summary ---
Author Name Unknown Organization [facility] Address [address] [place] [address] Care Team Providers Care Spinning Mule Operator Name Role Phone Unavailable Primary Care Provider Unavailabl e Source Comments Patient records contain information from all sites at [facility]. For routine questions regarding patient records, call [phone] during business hours, M-F 8:00 AM - 5:00 PM Central Time. Record requests for emergency care only can be directed to [phone] at any time.[facility] Allergies Active Allergy Reactions Criticality Noted Date Comments Amantadine Anaphylaxis,Other (see comments),Swelling High 04/16/2014 was overdosed by 14x; almost sedation Other reaction(s): Sedation [place] Other (see comments),Renal Failure High 01/30/2014 lithium toxicity ruined kidneys Renal failure ESKD 2 lithium ESKD 2 lithium [place] Toxicity causing renal failure Nsaids (Non-Steroidal Anti-Inflammatory [...] Allergic Due To Outdoor Pollen 06/24/20 Callus [place] 06/23/2021 Contracture Ankle 06/23/2021 Pes Planus 06/23/2021 [...] lithium toxicity Jun 2012, dialysis MWF at [facility] Anemia Iron Deficiency 11/22/2012 Diabetes Mellitus Type [...] Deficit Hyperactive Disorder 3 Overview: LW Onset: [id number] ; Attention Deficit Dis w Hyperactivity LW Onset: [id number] ; Attention Deficit Dis w Hyperactivity Explosive [...] 166.4 cm (5' 5.5) 12/22/2021 1:59 AM REVIEW CONSULTANT Body Mass Index 54.19 12/22/2021 1:59 AM REVIEW CONSULTANT Plan of Treatment Not on file Advance Directives For more information, please contact: [phone] Documents on File Type Date Recorded Patient Re Recording Mixer Expl anation Advance Directives 03/21/2016 12:00 AM Leg acy document. See document viewer. Advance Directives 03/17/2016 12:00 AM Leg acy document. See document viewer.
== END 2023-12-26 20:42 | disposition home or self-care (01) ==
LOC: AMB 12-27 07:48
PROVIDERS: Visit Provider Emergency Medicine Emergency Medical Services
DX: R45.851 Suicidal ideations (principal); F91.9 Conduct disorder, unspecified
CPT/HCPCS: A0425; A0429

== ENCOUNTER 2024-03-21 21:23 | Outpatient (CLI) | payer MEDICARE, OTHER, SELFPAY ==
--- OUTSIDE RECORDS SUMMARY | 2024-03-27 07:14 | XMS_ITS | Data Portability ---
Author Name Unknown Address [address] [place] [address] Phone [phone] Organization [place] - [facility], [employer] Address [address] [place] [address] Care Team Providers Care Nurse Head Name Role Phone PHUONG ROPER Primary Care Provider [phone] Assessment Encounter Date Assessment Date Assessment LastModified by Organization Details LastModified Time 10/03/2022 10/03/2022 Patient presents for of ingrown toenail. Based on history, physical exam, and prior treatments, I recommend INSERT TEXT HERE. Discussed treatment plan and instructions with patient. Orders as indicated below. [email or web address] Not available 10/03/2022 14:32:28 02/22/2023 02/22/2023 Patient seen in office today for a diabetic foot exam. Diabetes is well controlled. Abnormal findings include mycotic nails, neuropathy . Patient educated on diabetic foot complications and prevention. Discussed treatment/diagno stic plan and orders with patient as indicated below. [email or web address] Not available 02/23/2023 08:18:04 05/30/2023 05/30/2023 Nails debrided as previously documented. Patient meets criteria for ongoing nail cares and will be continually seen on a routine basis. Of note the patient's [facility] staff is interested in inserts for foot pain (patient does not relate this today), and we will send a form for her guardian to complete at this time. Not available 05/30/2023 12:40:13 08/29/2023 08/29/2023 Nails debrided as previously documented. Patient meets criteria for ongoing nail cares and will be continually seen on a routine basis. Of note the patient's [facility] staff is interested in inserts for foot [...] for [employer] trial. Off note: Staff's number [phone] [email or web address] Not available 12/19/2023 02:27:43 Plan of Treatment Reminders Order Date Submit Date Provider Last Modified By Organization Details Last Modified Time Details Appointments [facility] 15 2023 01:00P M Jigar Carlos DPM Not available Not available Not [...] Active 2021 Acquired hallux valgus; Original Code: 268841182 Origi nal Codesystem: SNOMED CT Classificati on: Medical Confirm ation Status: Confirmed Not Available [facility] 3 09:05:37 Polyneuropathy due to type 2 diabetes mellitus Active 2021 Polyneuropathy due to type 2 diabetes mellitus; Original Code: 1168593233 Orig inal Codesystem: SNOMED CT Classificati on: Medical Confirm ation Status: Confirmed Not Available [facility] 3 09:05:37 Callosity Active 2021 Callosity; Original Code: 058195348 Origi nal Codesystem: SNOMED CT Classificati on: Medical Confirm ation Status: Confirmed Not Available [facility] 3 09:05:37 Onychomycosis of toenails Active 2021 Onychomycosis of toenails; Original Code: 1112244443 Orig inal Codesystem: SNOMED CT Classificati on: Medical Confirm ation Status: Confirmed Not Available [facility] 09:05:37 Problem Notes None recorded. Procedures Surgical History Date Name Laterality Status Provider Name and Address Organization Details Recorded Time 12/18/19 24 NAIL[facility]BR [facility] 12/18/2023 14:48:32 08/29/[address] Montoya completed Stan Luevano, TOMEKA [address] [place], [address], [facility] 08/29/2023 12:44:39 05/30/[address] Montoya completed Stan Luevano, TOMEKA [address] [place], [address], [facility] 05/30/2023 12:37:45 02/23/[address] Ackerman completed Jigar Carlos, YANELY [address] [facility] [address] 02/23/2023 08:15:42 10/17/20 Routine Foot Care completed Jigar Carlos DPM [address] [place], [address], [facility] 10/17/2022 14:39:47 10/03/[address] Montoya completed Jigar Carlos, YANELY [address] [facility] [address] 10/03/2022 14:34:43 Imaging Results None recorded. Procedure Notes None recorded. Medical Equipment None Reported. Allergies Allergen ID Allergen Name Allergen Category Reaction Reaction Severity Criticality Documentation Date Start Date Code Code System Note Provider Name and Address Organization Details Recorded Time 70 amoxicill in medicatio n Not available Not available Not available 10/03/2022 723 RxNorm Tuyet Danay [facility] 14:05:59 71 Geodon medicatio n Not available Not available Not available 10/03/2022 67222 4 RxNorm Tuyet Danay [place], [place] - [facility] 2 14:06:11 72 lithium Not available Not available Not available Not available 10/03/2022 6448 [facility] 2 14:06:21 73 Non-stero idal anti-infl ammatory agent (product) medicatio n Not available Not available Not available 10/03/2022 46961 005 [facility] 2 14:06:34 74 Medicinal product containin g penicilli n and acting as antibacte rial agent (product) medicatio n Not available Not available Not available 10/03/2022 20886 05 [facility] 2 14:06:49 75 pineapple extract food Not available Not available Not available 10/03/2022 99069 74 RxJohanarm Tuyet myers [facility] 2 14:06:59 Medications Name Sig Start Date Stop Date Status Note LastModified by Organization Details LastModified Time fluoxetine 40 mg capsule active Not Available Not Available N ot Available atorvastatin 40 mg tablet active Not Available [...] No t Available Calcium Antacid 200 mg (as calcium carbonate 500 mg) chewable tablet active Not Available Not [...] No t Available lorazepam 0.5 mg tablet TAKE 1 TABLET BY MOUTH 30 MINUTES BEFORE PROCEDURE . MAY REPEAT IF STILL ANXIOUS active Not Available Not Available No t [...] active Not Available Not Available Not Available polymyxin B sulfate 10,000 unit-trimethop rim 1 mg/mL eye drops active Not Available Not Available No t Available Ear Drops (carbamide peroxide) 6.5 % active Not Available Not Available Not Available fluoxetine 10 mg capsule active Not Available Not Available N ot Available Gas Relief Extra Strength 125 mg capsule active Not Available Not Availab le Not Available gabapentin 300 mg capsule active Not Available Not Available N ot Available hydrocortisone 2.5 % topical cream active Not Available Not Available Not Available montelukast 10 mg tablet active Not [...] active Not Available Not Available Not Available norethindrone (contraceptive ) 0.35 mg tablet active Not Available Not Available [...] Updated DateTime 10/17/2022 165.1 cm 50.1 kg/m2 834432.3 g MIGUELINA [facility] - [facility] 10/17/2022 14:03:03 Social History None recorded. Functional Status None recorded. Mental Status None recorded. Family History Nothing Reported. Medical History No medical history recorded. Gynecological HistoryNo gynecological history recorded. Obstetrics History GPAL:G 0 P 0 0 0 0 Past Encounters Encounter ID Performer Location Encounter Start Date Encounter Closed Date Diagnosis/Indication Diagnosis SNOMED-CT Code [id number] Jigar Carlos [facility] [address] [place] [address] 10/03/2022 14:20:55 10/03/2022 15:20:36 Ingrowing toenail [id number] Jigar Carlos [facility] [address] [place] [phone] 10/17/2022 13:58:33 10/17/2022 15:19:17 Foot callus 483581299 Ingrowing toenail 593517 [id number] Jigar Carlos [facility] [address] [place] [address] 02/22/2023 11:57:15 02/23/2023 11:31:39 Ingrowing toenail 123692891 Peripheral neuropathy due to type 2 diabetes mellitus 0936410237693 Onychomycosis [id number] Stan Luevano, [facility] [address] [place] [address] 05/30/2023 10:50:45 05/31/2023 09:50:45 Peripheral neuropathy due to type 2 diabetes mellitus 0237892276156 On waiting list for organ transplant 500613792 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 84228774134632 8 Acquired p es planus of right foot 81379544871503 6 Acquired h allux limitus of right great toe 56581679736136 00 Acquired h allux limitus of left great toe 48903788218070 09 Onychomycosis 241334908 [id number] Stan [facility]uevano, [facility] [address] [place] [address] 08/29/2023 11:01:11 08/30/2023 15:54:51 Peripheral neuropathy due to type 2 diabetes mellitus 8715714051263 On waiting list for organ transplant 785794935 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 75487514325742 8 Acquired p es planus of right foot 23586894232913 6 Acquired h allux limitus of right great toe 19981790042965 00 Acquired h allux limitus of left great toe 79520214482360 09 Onychomycosis 785245391 [id number] Jigar Carlos, [facility] [place] [facility] [address] [place] [address] 12/18/2023 14:16:46 12/21/2023 09:31:46 Peripheral neuropathy due to type 2 diabetes mellitus 2522984648593 On waiting list for organ transplant 307151430 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 83113904559979 8 Acquired p es planus of right foot 52231982131145 6 Acquired h allux limitus of right great toe 88650272348065 00 Acquired h allux limitus of left great toe 63620814419552 09 Onychomycosis 518087967 Foot callus 263438491 Health Concerns Section Related Observation LastModified by Organization Detai ls LastModified Time None Recorded Concern Status LastModified by Organization Details LastModified Time None Recorded Advance Directives Directive None Recorded Payers Encounter Date Sequence Insurance Name Policy Number Policy Xie Covered Member ID Xie Member ID Guarantor Name 12/18/2023 2 MEDICA CHOICE CARE - [facility] (MEDICAID HMO) Elisa Jennings [id number] Elisa Jennings 12/18/2023 1 [place] [employer] Elisa Medranoon [id number] Elisa German Dick 08/29/2023 1 [place] [employer] Elisa M Jennings [id number] Elisa Jennings 08/29/2023 2 MEDICA (MEDICARE SUPPLEMENT) Elisa Jennings [id number] Elisa German Dick 05/30/2023 1 [place] [employer] Elisa M Jennings [id number] Elisa Jennings 05/30/2023 2 MEDICA (MEDICARE SUPPLEMENT) Elisa Jennings [id number] Elisa Jennings 02/22/2023 1 [place] [employer] Elisa Medranoon [id number] Elisa Jennings 02/22/2023 2 [employer]ICA (MEDICARE SUPPLEMENT) Elisa Jennings [id number] Elisa Jennings 10/17/2022 1 [place] [employer] Elisa Porter Jennings [id number] Elisa Jennings 10/17/2022 2 [employer] (MEDICARE SUPPLEMENT) Elisa Jennings [id number] Elisa Jennings 10/03/2022 1 [place] [employer] Elisa Porter Jennings [id number] Elisa Jennings 10/03/2022 2 MEDICA (MEDICARE SUPPLEMENT) Elisa Jennings [id number] Elisa Jennings Notes Date Note Type Note Provider Name and Address Organization Details Recorded Time 10/03/2022 text/html HPI Notes: increasing pain in b/l great toes for years. Jigar Carlos DPM [address] [place], [address], [facility] 10/03/2022 14:36:00 10/17/2022 text/html HPI Notes: Post P and A b/l grweat toes. Jigar Carlos DPM [address] [place], [address], [facility] 10/17/2022 14:40:10 02/22/2023 text/html HPI Notes: This Pt. presents for diabetic foot care. THey are a Q9 diabetic with peripheral neuropathy, THick mycotic nails, atrophic skin, palpable pedal pulses, Jigar Carlos, [facility] [address] [place], [address], [facility] - [facility] 02/23/2023 08:18:46 05/30/2023 text/html HPI Notes: Tyler salinas is a 28 year old female new patient who presents with the chief complaint with care staff from the [facility]. Presents today for evaluation of problematic toenails and feet in general. They relate chronic thickening and deformity to their toenails that has not responded to self-trimming, topical iohm-lwi-qzyjgff anti-fungal therapy, foot soaks, and other similar [...] for further evaluation and treatment options. Stan Luevano, [facility] [address] [place], [address], [facility] 05/30/2023 12:40:21 08/29/2023 text/html HPI Notes: Tyler salinas is a 28 year old female established patient who presents with the chief complaint with care staff from the [facility]. Presents today for evaluation of problematic toenails and feet in general. They relate chronic thickening and deformity to their toenails that has not responded to self-trimming, topical lqus-hfe-ypetqzz anti-fungal therapy, foot soaks, and other similar [...] for further evaluation and treatment options. Stan Luevano, YANELY [address] [place], [address], [facility] 08/29/2023 12:46:55 12/18/2023 text/html HPI Notes: Tyler salinas is a 28 year old female established patient who presents with the chief complaint with care staff from the [facility]. Presents today for evaluation of problematic toenails and feet in general. They relate chronic thickening and deformity to their toenails that has not responded to self-trimming, topical jnks-zav-lxxngmc anti-fungal therapy, foot soaks, and other similar [...] evaluation and treatment options. Jigar Carlos DPM [address] [place], [address], [facility] 12/19/2023 09:39:49 OBGyn Episode No OBEpisode recorded.
--- OUTSIDE RECORDS SUMMARY | 2024-03-27 07:15 | XMS_ITS | Encounter Summary ---
Author Name Unknown Organization [facility] Address [address], [place] [address] Care Team Providers Care Pipe Maker Name Role Phone No Primary/Referring, Phy Primary Care Provider Unavailable Reason for Visit * Reason Comments Suicidal Encounter Details Date Type Department Care Team (Late st Contact Info) Description 12/26/2023 9:29 PM INDUSTRIAL GREEN SYSTEMS DESIGNER - 12/28/2023 9:36 AM [facility] Emergency [facility] Emergency Dept [address] [place] [id number] Adeel Underwood MD [address] [place], [place] [id number] Cluster B personality disorder (HRC) (Primary Dx); Autism spectrum (HRC) Discharge Disposition: Home Social History Tobacco Use [...] Sign Reading Time Taken Comments Blood Pressure 116/82 12/28/2023 7:16 AM INDUSTRIAL GREEN SYSTEMS DESIGNER Pulse 100 12/28/2023 7:16 AM INDUSTRIAL GREEN SYSTEMS DESIGNER Temperature 36.3 ??C (97.3 ??F) 12/27/2023 11:[address] Respiratory Rate 19 12/28/2023 7:16 AM INDUSTRIAL GREEN SYSTEMS DESIGNER Oxygen Saturation 97% 12/28/2023 7:16 AM INDUSTRIAL GREEN SYSTEMS DESIGNER Inhaled Oxygen Concentration - - Weight - - Height - - Body Mass Index - - documented in this encounter Discharge Summaries * Mariam Escalona PA-C - 12/28/2023 7:26 AM CST [facility] Emergency Medicine Observation Discharge Summary ED Arrival Date: 12/26/20232128 Start ED Obs date: 12/26/20232230 Discharge Date: 12/28/2023 Reason for ED Observation: Concerns about self harm behaviors needing further evaluation Discharge Exam: Most recent vitals: Patient Vitals for the past 24 hrs: BP Temp Temp src Pulse Resp SpO2 12/28/23 0716 116/82 -- -- 100 19 97 % 12/27/23 2338 113/70 97.3 ??F (36.3 ??C) Oral 69 20 100 % 12/27/23 1639 113/72 97.6 ??F (36.4 ??C) Oral 80 21 100 % 12/27/23 0837 (!) 150/62 -- -- 79 20 100 % General: Alert Respiratory: non-labored GI: no vomiting, no abdominal tenderness Neuro: Gait stable with no assistants Psych: normal affect. normal behavior. Suicidal ideation: passive ideation, baseline, on 3:1 at .Homicidal ideation: none. Hallucinations: none. Thought process: normal. Insight: partial Hospital Course: See ED Provider Note ED Course for full detail Concepcion Events: - patient observed in ED for 30+ hours to further evaluate self harm behaviors and determine safe disposition During observation the patient did not require medications for agitation and did not require restraints for safety. At discharge, the patient was tolerating food and liquids. Procedures Performed: None Advanced Imaging: None Consultations: Psychiatry Discharge Condition: Stable Disposition: Concepcion Discharge Instructions and Follow Up Plan: - please continue to take medications - follow up with outpatient team - call crisis or 911 with safety concerns Clinical Impressions: 1. Cluster B personality disorder (HRC) 2. Autism spectrum (HRC) Time spent in discharge: 15 minutes STRIAL GREEN SYSTEMS DESIGNER documented in this encounter Discharge Instructions * Discharge Instructions* Mariam Escalona PA-C - 12/28/2023 7:30 AM INDUSTRIAL GREEN SYSTEMS DESIGNER Please continue to take your medications Please follow up with your outpatient care team to discuss your presentation to the ED Call crisis number below or 911 with safety concerns. You can call for crisis help 18/06 at [phone] STRIAL GREEN SYSTEMS DESIGNER documented in this encounter Medications at Time [...] 1 Tablet (10 mg) by mouth daily. blood glucose (ACCU-CHEK GUIDE) test stripIndications:Natalie betes Mellitus Use to test two times a day before meals. Each test strip is for one time use only. Indications: Diabetes 100 Strip 03/02/2022 Blood Glucose Monitoring Suppl (ACCU-CHEK GUIDE) w/Device KITIndications:Diabe kerrie Mellitus Use 1 Kit to test two times a day before meals. Indications: Diabetes 1 Each 03/02/2022 calcitriol (ROCALTROL) 0.25 MCG capsule Take 1 Capsule (0.25 mcg) by mouth daily. calcium carbonate (TUMS) 500 MG chewable tablet Chew and swallow 1 Tablet (500 mg) by mouth three times a day as needed for Heartburn. And 2 tablets every hour as needed for stomach pain + indigestion. Maximum 10 tablets/24 hours. Rnogadl-Amgozvkbeo-Y enthol (VICKS VAPORUB EX) Apply topically underneath nose or to chest every 2 hours as needed. carbamide peroxide (DEBROX) 6.5 % ear drop solution Place 3 Drops into both ears every 4 hours as needed (for excess earwax). cholecalciferol (AKA VITAMIN D3) 1000 UNITS capsule Take 1 Capsule (1,000 Units) by mouth daily. 06/14/2015 clozapine 100 MG tablet Take 1 Tablet (100 mg) by mouth two times a day. cyclobenzaprine (FLEXERIL) 5 MG tablet Take 1 Tablet (5 mg) by mouth every 8 hours as needed for Muscle Spasms. diphenhydrAMINE (BENADRYL ALLERGY) 25 MG tablet Take 2 Tablets (50 mg) by mouth every 6 hours as needed for Itching. divalproex (DEPAKOTE ER) 500 MG 24 hour release tablet Take 2 Tablets (1,000 mg) by mouth two times a day. Emollient (VANICREAM) cream Apply topically every 6 hours as needed (for rash). EPINEPHrine (EPIPEN) 0.3 MG/0.3ML injection Inject 0.3 mL (0.3 mg) intramuscularly as needed. FLUoxetine (PROZAC) 10 MG capsule Take 3 Capsules (30 mg) by mouth daily. fluticasone-salmeter ol (ADVAIR) 100-50 MCG/DOSE diskus inhaler Inhale 1 Puff two times a day. Rinse mouth/gargle after use gabapentin (NEURONTIN) 300 MG capsule [...] two times a day. lancet (ACCU-CHEK FASTCLIX) deviceIndications:Di abetes Mellitus Use 1 Each to test two times a day before meals. Indications: Diabetes 1 Each 03/02/2022 lancets (ACCU-CHEK FASTCLIX)Indications :Diabetes mellitus type II (HR) Use 1 Each to test two times a day before meals. 102 Each 03/02/2022 levothyroxine (SYNTHROID) 100 MCG tablet Take 1 Tablet (100 mcg) by mouth daily. Before breakfast 06/14/2015 loratadine (CLARITIN) 10 MG tablet Take 1 Tablet (10 mg) by mouth daily. melatonin 5 MG tablet Take 1 Tablet (5 mg) by mouth at bedtime as needed. montelukast (SINGULAIR) 10 MG tablet Take 1 Tablet (10 mg) by mouth daily at bedtime. nystatin (MYCOSTATIN) 871240 UNIT/GM cream Apply topically two times daily as needed. OLANZapine (ZYPREXA) 10 MG tablet Take 0.5 Tablets (5 mg) by mouth as needed. May repeat every 4 hours as needed up to 10mg/day pantoprazole DR (PROTONIX) 40 MG tablet Take 1 Tablet (40 mg) by mouth daily. polyethylene glycol (AKA MIRALAX) packetIndications:Co nstipation Take 17 g by mouth two times a day. Indications: Constipation 06/14/2015 polyvinyl alcohol (ARTIFICIAL TEARS) 1.4 % [...] (150 mg) by mouth daily at bedtime. 06/14/2015 umeclidinium (INCRUSE ELLIPTA) 62.5 MCG/INH inhaler Inhale 1 Puff daily. UREA, EMOLLIENT, (AKA CARMOL) 20 % cream Apply topically daily. documented as of this encounter Progress Notes * Chantell Mejia MD - 12/27/2023 12:23 PM CST Asked to prescribe Clozaril. Reviewed chart, per note by pharmacy his WBC count is within normal limits, last done 12/11/2023. We will prescribe Clozaril 100 mg b.i.d.. Patient says they have been taking the medications regularly. Clozaril prescribed 100 mg b.i.d.. Also asked to consult because patient maybe spending more than 24 hours in the ED. Per half-way patient has been doing quite well on her current medications and does not want them discontinued. Occasionally she becomes more behavioral because she is tired of being in the half-way and wants to be in the hospital. She likes being in the hospital. jail is willing to take her back as long as her suicidal ideations have reduced. Staff and we decided we will keep her in the ED for 24 hours and then discharge her tomorrow. jail willing to take her back tomorrow morning. I went to see patient. She was watching TV. She continues to have suicidal ideations and thinks about swallowing batteries. She also thinks about using her CPAP machine cord. Patient repeatedly askedif she is going to be hospitalized. I did tell her she was in the hospital. Patient knows this is and knows this is December. I asked about voices and patient says she sees things occasionally. MENTAL STATUS EXAM: The patient is alert and casually groomed. She behaved in a(n) cooperative, engaged, engaged,cooperative manner during the interview. Her affect is neutral,full-ranged. Her speechis of normal rate and loudness. Movements-normal. Gait-normal. Form of thought is logical and goal-directed. Thought content is has SI,sees things at times. Insight is limited, judgment is limited. Her orientation, fund of knowledge and memory are intact. Assessment-patient has been doing very well on her current regimen regimen [facility]. She occasionally gets behavioral and likes being in the hospital. We will keep her herefor 24 hours and then discharge her tomorrow morning. She is taking her Clozaril so we restarted her Clozaril. Labs have been fine. Principal Psychiatric Diagnoses: 1. Autism spectrum disorder. 2. Borderline and antisocial. 3. Intellectual disability with full-scale of IQ of 70 noted in 2011. 4. Self-injurious behavior including recently trying to choke herself and trying to drink nail lithuanian. 5. History of depression with psychosis versus history of bipolar disorder diagnosed at age 10, but the diagnosis has been questioned since [place] [address] Vasquez. 6. Posttraumatic stress disorder. 7. Intermittent explosive disorder. 8. History of attention deficit hyperactivity disorder before the age of 8. 9. History of reactive attachment disorder. 10. History of oppositional defiant disorder. PLAN-restart Clozaril 100 mg b.i.d.. The half-way did send the med list-and patient is on Clozaril 100 mg b.i.d.. -patient will be here till tomorrow morning and then will be discharged back to the half-way. Chantell Mejia MD-Psychiatry STRIAL GREEN SYSTEMS DESIGNER documented in this encounter Consult Notes * Robles Galloime Lino - 12/26/2023 10:30 PM CSTAssociated Order(s): ED SOCIAL WORK CONSULT [facility] Emergency Department Social Work Crisis Assessment [...] choke herself and trying to drink nail lithuanian. 5. History of depression with psychosis versus [...] the ED with medics. Patient arrives from half-way where patient attempted to hang herself with her CPAP cords and attempted to eat batteries. Group Homestaff was able to prevent her from doing this. Patient was reported to be violent towards PD and was cooperative for transport. Patient reports current suicidal ideation. Patient reports hitting her head on the linn repeatedlyat the half-way tonight. Patient states that she has been [...] if she is sent back to the half-way while she feels this way, she will [...] the hospital. After speaking with patient's staff, SW spoke with patient again. SW asked patient [...] numbers) Maria Dolores Staff, # is . GH uncomfortable with patient's return tonight. Their concern [...] she is forced to return to her half-way tonight Current Stressors and Relevant History: Triggering events leading to humiliation, shame, and/or despair (e.g. loss of relationship, financial or health status) (real or anticipated) Protective Factors: None Family History: Not applicable Living Situation: jail 3:1 staff: resident ratio during the day 2:1 ratio at night. Legal Issues (include comments regarding probation, incarcerations, etc): None reported Employment/Income: Unemployed Mental Health Care: Steam Fitter: Yes Care Providers - Dr. Panda - [...] intentto harm herself. Patient resides in a half-way and had attempted to take action to harm herself tonight though staff prevented her from doing so. Patient endorses depressive symptoms and states shewants there medications adjusted. Patient affirms recent contact with her outpatient psychiatrist resulted in the increase in one of her medications and no changes on the others. Patient unable to contract for safety at this time. unwilling to have patient return to [facility] if patient is still endorsing thoughts or plans to hurt herself. Suicide Risk: Plan: Reassess Legal Status: Voluntary Discussed with: Steve Romero FORENSIC PHOTOGRAPHER, [facility] 12/26/2023, 10:31 PM ADDENDUM: Kimberly Staff, # is . Reports that there are currently new staff on today. Reports that the pt has had an increase in anxiety and agitation over the last couple of weeks. Reports that they have concerns about the pt returning because when she is feeling oppositional like this she will do whatever it takes to go back to the hospital if that is where she wants to be. Reports that they do not have a safe van to transport the pt in and if the pt returns home she will need a medical transport back. Kimberly reiterates concern that the pt should not return home if she is unable to contract for safety. Plate Painter attempted to call pt's guardian, Ana Maria, mother, , senior technical writer left a message requesting return phone call. Jaclyn Jimenez, [facility] 12/27/2023, 8:46 AM ADDENDUM: Plate Painter spoke with pt's mom Ana Maria. Ana Maria shared she usually cycles like this around January. Ana Maria shared I'm fine if she's sent home. She does talk often about hurting herself and that she has a plan - however she knows what to say to come to the hospital and will make attempts to do so. I don't really know what to think of it. I talked to her yesterday and she was super tired because she didn't sleep well the night before due to not sleeping with her b-pap machine. That tends to create herbehaviors because she doesn't know how to verbally express what's going on and it leads to her behaviors. Ana Maria shared her outpatient provider increased one of her medications after her last ED vist. To be honest, I don't want her coming into the hospital and having anything done with her medications, I'd rather that be left with her outpatient psychiatrist who knows her case and her well. Ana Maria shared I'm okay with whatever you guys feel after your assessment. If the half-way truly doesn't feel okay with her going home - I mean she knows what to say in either situation and sure couldwind up back. I just don't want her coming in for medication purposes. Plate Painter shared we would lumbee back with disposition plan. Ana Maria shared she is working and is okay with us leaving a voicemail with decision. Wyatt Gallo, BA - ED Crisis SW Coordinator 12/27/2023, 9:21 AM ADDENDUM: Spoke with pt's Laura LA, , and staff Marta, on a conference call. has concerns about the pt returning today due to her behaviors escalating recently. Staff reports increased SI and suicidal gestures and more agitation at home. agrees with mother that pt is normallywell managed on her medication regimen, but feel that the pt will escalate if she returns to the . Additionally, secure van is in the shop and they cannot transport pt and pt will need a securetransport home. Jaclyn Jimenez, [facility] 12/27/2023, 9:56 AM ADDENDUM: Pt continues to request to be admitted to the hospital for medication changes. Pt informed that medication changes would not be made and that she is in the hospital currently. Pt continues to state she does not feel good to d/c home. Spoke with pt's Laura LA, , to provide update about pt. Laura advocates for pt to remain in the hospital for one more night for observation & to ensure pt is able to maintain safe behaviors. Laura will e-mail pt's care team and guardian with the plan of pt to stay in the hospital 1more night and pt will be d/c home via secure transport on 12/28 @ 0800. Plate Painter spoke with staff, Marta, , who is in agreement with pt to be d/c home on 12/28 @ 0800 via secure transport. Plate Painter spoke with pt's guardian, Ana Maria, mother, , who is in agreement with pt to be d/c home on 12/28 @ 0800 via secure transport. Psychiatry was also involved in the planning of this pt and is in agreement with this plan. Pt to be d/c home on 12/28 @ 0800 via secure transport. Jaclyn Jimenez, [facility] 12/27/2023, 1:14 PM ADDENDUM: Per nursing - [facility] is en route to bring pt back to half-way for discharge. Wyatt Gallo BA - ED Crisis SW Coordinator 12/28/2023, 8:27 AM STRIAL GREEN SYSTEMS DESIGNER documented in this encounter ED Notes * Edith Guzman RN - 12/28/2023 9:36 AM CST [facility] ED Nursing Discharge Note Arrival Information: Patient arrived: Ambulance Patient escorted by: EMS/Ambulance Discharge Information: Patient discharged: Nursing Home - Verbal report given to returning facility: Yes - Facility name: , Date/Time report given: 331, Report given to: half-way staff, Phone number call: Patient accompanied by: Accompanied By: Self Transport mode: Mode: Rideshare (example: Lyft) Discharge instructions given and explained to patient: Transportation arranged: Yes LDA in place: Patient verbalized understanding of discharge plan and capable of completing discharge plan: Yes Does patient require hand-off or assistance with discharge plan: No Belongings and medication returned to patient and prompted to retrieve weapons: Yes Patient level of pain on discharge: (0-10) Pain Rating: Rest: 3 Holds documented by nursing during this visit - reviewed chart for most current hold status: Yes Legal Status Orders (From admission, onward) None STRIAL GREEN SYSTEMS DESIGNER * Antonino Reno RN - 12/28/2023 3:32 AM CST [facility] called for transport to , will be here between [phone]. STRIAL GREEN SYSTEMS DESIGNER * Dia Galeana RN - 12/27/2023 7:29 PM CST Report given to Jarocho Reed RN STRIAL GREEN SYSTEMS DESIGNER * Dia Galeana RN - 12/27/2023 8:38 AM CST Pt awake in room, eating breakfast, reports all over abdominal pain, rates pain a 02/02, will notifyPA-C STRIAL GREEN SYSTEMS DESIGNER * Dia Galeana RN - 12/27/2023 8:04 AM CST Assumed pt care Pt in room, sleeping with respirations easy and nonlabored STRIAL GREEN SYSTEMS DESIGNER * Joe Means RN - 12/26/2023 10:18 PM CST Pt is awake, resting in room. Calm and cooperative. Will continue to monitor. STRIAL GREEN SYSTEMS DESIGNER * Steve Garcia PA-C - 12/26/2023 9:32 PM CST [facility] Emergency Medicine Visit Note Chief Complaint: Suicidal HPI 28 yo female with a hx of developmental delay, ADHD, Cluster B personality disorder, Intermittent explosive disorder, Diabetes, CKD and GERD brought to the ED by EMS from her half-way after she tried to strangle herself with [...] calm here. She denies any physical complaints. SW met with Elisa and spoke to her . They would accept her back. However, if she is still complaining of SI, they areconcerned that they would not be able to control her behavior. SW again discussed returning to her . Elisa [...] Steve Garcia PA-C ED Course as of 12/28/23 0722 Uzma Dec 27, 2023 0100 Sign out received, assumed care at this time. [MATTEO] 0700 Patient signed out pending SW re-evaluation. [MATTEO] 0736 Sign out received, assumed care at this time. [SS] 0930 Elisa complained of abdominal pain to RN while eating breakfast this morning. On my exam she has mild suprapubic tenderness that is not there when patient is distracted. When asked about associated symptoms, patient stated she's feeling suicidal but no other physical symptoms. During lung exampatient stated, oh yeah, I'm feeling short of breath too. I have suspicion patient is making medical complaints now for secondary gain. Patient's complaint of abdominal pain came immediately following meeting with ED SW and discussion about discharge back to her half-way. Patient did not offer complaints of shortness of breath until her lungs/heart were being auscultated. She also complained of nausea to RN, but then proceeded to eat her breakfast without difficulty. Will obtain UA to assess for UTI, along with UPT. [SS] 1208 HCG, Urine: Negative [SS] 1208 UA Conditional UC: Clean Catch(!) Not concerning for UTI. No hematuria to suggest ureteral stone. [SS] 1514 Sign out received, assumed care at this time. From for self injurious behavior. Mom is guardian and isn't interested in med changes. Admissionnot felt to be beneficial and ultimate recommendation is for discharge. jail will not take her back until 8:00 a.m. tomorrow. [DC] 1839 ED OBSERVATION SUBSEQUENT DAY PROGRESS NOTE Start Obs date: 12/26/20232230 Service date for this note: 12/27/2023 ED Obs Calendar Day #: 2 Subjective: Patient condition improved.. Vital signs reviewed and reassuring Exam: General: no distress, awake and alert Respiratory: distress: none Neuro: ambulatory: yes Psych: Neutral affect. Limited insight. Response to management during observation: improved from Continue plan: yes Current clinical impression: Cluster B personality disorder. Autism spectrum [DC] Fri Dec 28, 2023 0100 Sign out received, assumed care at this time. [MATTEO] 0114 Patient will be signed out pending secure transport back to her half-way at 8:00 a.m.. [DC] 0701 Patient signed out pending discharge to the half-way. [MATTEO] 0721 Sign out received, assumed care at this time. 28 yo F presenting from after trying to hand self with CPAP cords and eating batteries. Planned discharge back to at 8a [SP] ED Course User Index [DC] Neyda Campbell PA-C [MATTEO] Jaclyn Solitario PA-C [SP] Mariam Escalona PA-C [SS] Zhen Dickson PA-C Clinical Impressions as of 12/28/23 0722 Cluster B personality disorder (HRC) Autism spectrum (HRC) STRIAL GREEN SYSTEMS DESIGNER documented in this encounter Plan of Treatment Not on file documented as of this encounter Procedures Procedure Name Priority Date/Time Associated Diagnosis Comments POCT URINE STAT 12/27/2023 9:40 AM INDUSTRIAL GREEN SYSTEMS DESIGNER UA CONDITIONAL UC STAT 12/27/2023 9:3 8 AM INDUSTRIAL GREEN SYSTEMS DESIGNER documented in this encounter Results * POCT urine (12/27/2023 9:40 AM INDUSTRIAL GREEN SYSTEMS DESIGNER) Urine Test - POC Negative Negative POCT Control Line Present, Clear Background - Internal control Yes POCT Cartridge Lot# [id number] POCT Urine 12/27/2023 9:40 AM INDUSTRIAL GREEN SYSTEMS DESIGNER Zhen Jacques PA-C ET POINT OF CARE TE ST ENTER/EDIT ORDERABLES POCT * (ABNORMAL) UA Conditional UC: Clean Catch (12/27/2023 9:38 AM INDUSTRIAL GREEN SYSTEMS DESIGNER) Urine Culture Comment Urinalysis results do not meet criteria for urine culture reflex. 12/27/2023 10:10 AM [facility] Urine Color Light-Yellow 12/27/2023 10:10 AM [facility] Urine Clarity Clear Clear 12/27/2023 10:10 AM [facility] Specific Hugo, Urine 1.005 <1.030 12/27/2023 10:10 AM [facility] PH Urine 7.0 5.0 - 8.0 12/27/2023 10:10 AM [facility] Protein, Urine Qual (mg/dL) 30(A) Negative, 10 , 20 12/27/2023 10:10 AM [facility] Glucose Urine Qual (mg/dL) Normal (Negative) Normal (Negative), 30 , 50 12/27/2023 10:10 AM [facility] Ketones, Urine (mg/dL) Negative Negative, Trace 12/27/2023 10:10 AM [facility] Urobilinogen, Urine (EU/dL) Normal (Negative) Normal (Negative) 12/27/2023 10:10 AM [facility] Bilirubin Urine (mg/dL) Negative Negative 12/27/2023 10:10 AM [facility] Blood, Urine (mg/dL) Negative Negative, 0.03 (Trace) 12/27/2023 10:10 AM [facility] Nitrite Urine Negative Negative 12/27/2023 10:10 AM [facility] Leukocyte Esterase, Urine (Julien/uL) Negative Negative, 25 (Trace) 12/27/2023 10:10 AM [facility] Red Blood Cells <1 0 - 3 /HPF 12/27/2023 10:10 AM [facility] White Blood Cells 1 0 - 5 /HPF 12/27/2023 10:10 AM [facility] Squamous Epithelial Cells Occasional None Seen, Occasional, Few /HPF 12/27/2023 10:10 AM [facility] Mucus Present(A) None Seen /HPF 12/27/2023 10:10 AM [facility] Urine Source Clean Catch 12/27/2023 10:10 AM [facility] Urine URINE SPECIMEN COLLECTION, CLEAN CATCH / Unknown Non-blood Collection / Unknown 12/27/2023 9:38 AM INDUSTRIAL GREEN SYSTEMS DESIGNER 12/27/2023 9:42 AM INDUSTRIAL GREEN SYSTEMS DESIGNER Narrative [facility] - 12/27/2023 10:10 AM [facility] The qualitative interpretive guidance provided (e.g., small, moderate, large) is intended to aid in quantitative result interpretation. It is not itself an FDA-cleared test result. Zhen Jacques PA-C LAB_1 [facility] [address] [place] [address], [facility] documented in this encounter Visit Diagnoses Diagnosis Cluster B personality disorder (HRC)- Primary Unspecified personality disorder Autism spectrum (HRC) Autistic disorder, current or active state * Plan of Care - Asaf Sandoval, PharmD - 12/26/2023 10:45 PM CST Images from the original note were not included. [facility] Lab Monitoring Note Elisa [...] For questions, please contact pharmacy or visit [email or web address]. Plan to check Absolute PMN in 2 weeks. Pharmacy will continue to follow. Lab Data: Absolute PMN (ANC): Neutrophil Absolute Date Value Ref Range Status 12/11/2023 4.1 1.7 - 7.0 10(9)/L Final Absolute Neutrophils Date Value Ref Range Status 06/14/2015 5.7 1.8 - 8.0 k/cmm Final [employer]EN SYSTEMS DESIGNER * Triage Assessment Note - Joe Means RN - 12/26/2023 9:36 PM INDUSTRIAL GREEN SYSTEMS DESIGNER Pt arrives via EMS from half-way. Pt attempted to hang herself with her CPAP cords and attempted to eat batteries. Nursing Home staff was able to prevent her from doing this. Pt is a 3 to 1 watch at her half-way. She was violent towards PD, but was cooperative for transport. Blood Sugar 156 by medics. Upon arrival pt calm and cooperative, allows vital signs. Awaiting team assessment. Pt wanded by security, placed on 15 min roundings. STRIAL GREEN SYSTEMS DESIGNER documented in this encounter Administered Medications Inactive Administered Medications - up to 3 most recent administrations Medication Order MAR Action Action Date Dose Rate Site aluminum-magnesium hydroxide-simethicone (MYLANTA) 200-200-20 MG/5ML suspension 30 mL 30 mL, Oral, ONCE, On Sun12/26/23 at 2330, For 1 dose, Shake well before administration Given 12/26/2023 11:49 PM INDUSTRIAL GREEN SYSTEMS DESIGNER 30 mL amLODIPine (NORVASC) tablet 10 mg 10 mg, Oral, DAILY, First dose on Sun12/27/23 at 0800, Until Discontinued Given 12/28/2023 7:10 AM INDUSTRIAL GREEN SYSTEMS DESIGNER 10 mg Given 12/27/2023 9:47 AM INDUSTRIAL GREEN SYSTEMS DESIGNER 10 mg cloZAPine (CLOZARIL) tablet 100 mg 100 mg, Oral, BID, First dose on Sun12/27/23 at 1300, Until Discontinued, Indications: Schizoaffective Disorder Given 12/28/2023 7:12 AM INDUSTRIAL GREEN SYSTEMS DESIGNER 100 mg Given 12/27/2023 11:32 PM INDUSTRIAL GREEN SYSTEMS DESIGNER 100 mg Given 12/27/2023 1:32 PM INDUSTRIAL GREEN SYSTEMS DESIGNER 100 mg divalproex (DEPAKOTE ER) 24 hour release tablet 1,000 mg 1,000 mg, Oral, BID, First dose on Sun12/27/23 at 0800, Until Discontinued, Tablet/Capsule should be swallowed whole. HAZARDOUS DRUG Preparation: Single glove Administration: If no touch, no PPE; if handling, single glove Given 12/28/2023 7:10 AM INDUSTRIAL GREEN SYSTEMS DESIGNER 1,000 mg Given 12/27/2023 9:34 PM INDUSTRIAL GREEN SYSTEMS DESIGNER 1,000 mg Given 12/27/2023 9:47 AM INDUSTRIAL GREEN SYSTEMS DESIGNER 1,000 mg FLUoxetine (PROZAC) capsule 40 mg 40 mg, Oral, DAILY, First dose on Sun12/27/23 at 0800, Until Discontinued Given 12/28/2023 7:10 AM INDUSTRIAL GREEN SYSTEMS DESIGNER 40 mg Given 12/27/2023 9:47 AM INDUSTRIAL GREEN SYSTEMS DESIGNER 40 mg levothyroxine (SYNTHROID) tablet 100 mcg 100 mcg, Oral, DAILY AT 0600, First dose on Sun12/27/23 at 0600, Until Discontinued, Take on an empty stomach, one hour before meals or two hours after. Given 12/28/2023 7:11 AM INDUSTRIAL GREEN SYSTEMS DESIGNER 100 mcg Given 12/27/2023 9:48 AM INDUSTRIAL GREEN SYSTEMS DESIGNER [address] (PROTONIX) tablet 40 mg 40 mg, Oral, DAILY AT 0600, First dose on Sun12/27/23 at 0600, Until Discontinued, Tablet should be swallowed whole. Best when taken before a meal, but may be taken with food. Given 12/28/2023 7:11 AM INDUSTRIAL GREEN SYSTEMS DESIGNER 4 0 mg Given 12/27/2023 9:48 AM INDUSTRIAL GREEN SYSTEMS DESIGNER 40 mg sennosides-docusate sodium (SENOKOT S) 8.6-50 MG per tablet 1 Tablet 1 Tablet, Oral, BID, First dose on Sun12/27/23 at 0800, Until Discontinued, as laxative/stimulant, stool-softening agent Given 12/28/2023 7:12 AM INDUSTRIAL GREEN SYSTEMS DESIGNER 1 Tablet Given 12/27/2023 9:34 PM INDUSTRIAL GREEN SYSTEMS DESIGNER 1 Tablet Given 12/27/2023 9:48 AM INDUSTRIAL GREEN SYSTEMS DESIGNER 1 Tablet sucralfate (CARAFATE) tablet 1 g 1 g, Oral, BID, First dose on Sun12/27/23 at 1800, Until Discontinued, Give on empty stomach. - Administer other medications at least 1 hour before or 2 hours after sucralfate to prevent decreased absorption - If patient cannot swallow tablets whole, ok to crush or disperse each tablet in 20 mL of water and allow to stand for 5 minutes prior to administration - If giving via feeding tube: Gastric tube administration ONLY. DO NOT GIVE by jejunal tube route. - Gastric route enteral feeds should be stopped at least 1 hour before the dose and not restarted for 1 hour post-dose. - Jejunal route enteral feeds do not need to be stopped around gastric route sucralfate administration. Given 12/28/2023 8:03 AM INDUSTRIAL GREEN SYSTEMS DESIGNER 1 g Given 12/27/2023 4:45 PM INDUSTRIAL GREEN SYSTEMS DESIGNER 1 g documented in this encounter Active and Recently Administered Medications Times are shown in IND[employer] SYSTEMS DESIGNER. Scheduled Medication Order 12/26/2023 12/27/2023 12/28/2023 aluminum-magnesium hydroxide-simethicone (MYLANTA) 200-200-20 MG/5ML suspension 30 mL (COMPLETED) 30 mL, Oral, ONCE, On Sun12/26/23 at 2330, For 1 dose, Shake well before administration 2349 (Given - Provider: Dalton Payton RN) amLODIPine (NORVASC) tablet 10 mg 10 mg, Oral, DAILY, First dose on Uzma 12/27/23 at 0800, Until Discontinued 0947 (Given - Provider: Dia Galeana RN) 0710 (Given - Provider: Antonino Reno RN) cloZAPine (CLOZARIL) tablet 100 mg 100 mg, Oral, BID, First dose on Uzma 12/27/23 at 1300, Until Discontinued, Indications: Schizoaffective Disorder 1332 (Given - Provider: Dia Galeana RN)2332 (Given - Provider: Antonino Reno RN) 0712 (Given - Provider: Antonino Reno RN) divalproex (DEPAKOTE ER) 24 hour release tablet 1,000 mg 1,000 mg, Oral, BID, First dose on Uzma 12/27/23 at 0800, Until Discontinued, Tablet/Capsule should be swallowed whole. HAZARDOUS DRUG Preparation: Single glove Administration: If no touch, no PPE; if handling, single glove 946 (Given - Provider: Dia Galeana RN)2133 (Given - Provider: Jackeline Luo RN) 0710 (Given - Provider: Antonion Reno RN) FLUoxetine (PROZAC) capsule 40 mg 40 mg, Oral, DAILY, First dose on Uzma 12/27/23 at 0800, Until Discontinued 0947 (Given - Provider: Dia Galeana RN) 0710 (Given - Provider: Antonino Reno RN) levothyroxine (SYNTHROID) tablet 100 mcg 100 mcg, Oral, DAILY AT 0600, First dose on Uzma 12/27/23 at 0600, Until Discontinued, Take on an empty stomach, one hour before meals or two hours after. 0948 (Given - Provider: Dia Galeana RN) 0711 (Given - Provider: Antonino Reno RN) pantoprazole DR (PROTONIX) tablet 40 mg 40 mg, Oral, DAILY AT 0600, First dose on Uzma 12/27/23 at 0600, Until Discontinued, Tablet should be swallowed whole. Best when taken before a meal, but may be taken with food. 0948 (Given - Provider: Dia Galeana RN) 0711 (Given - Provider: Antonino Reno RN) sennosides-docusate sodium (SENOKOT S) 8.6-50 MG per tablet 1 Tablet 1 Tablet, Oral, BID, First dose on Sun12/27/23 at 0800, Until Discontinued, as laxative/stimulant, stool-softening agent 0948 (Given - Provider: Dia Galeana RN)2134 (Given - Provider: Jackeline Luo, CHINO) 0712 (Given - Provider: Antonino Reno, [place]INO) sucralfate (CARAFATE) tablet 1 g 1 g, Oral, BID, First dose on Sun12/27/23 at 1800, Until Discontinued, Give on empty stomach. - Administer other medications at least 1 hour before or 2 hours after sucralfate to prevent decreased absorption - If patient cannot swallow tablets whole, ok to crush or disperse each tablet in 20 mL of water and allow to stand for 5 minutes prior to administration - If giving via feeding tube: Gastric tube administration ONLY. DO NOT GIVE by jejunal tube route. - Gastric route enteral feeds should be stopped at least 1 hour before the dose and not restarted for 1 hour post-dose. - Jejunal route enteral feeds do not need to be stopped around gastric route sucralfate administration. 1645 (Given - Provider: Dia Galeana RN - Comment: GIVEN AT THIS TIME PER PT REQUEST)1745 (Not Given - Provider: Dia Galeana RN - Reason: Other (Enter Reason in Comment Area) - Comment: given at 16:00 per, pt request) 0803 (Given - Provider: Edith Guzman RN) documented in this encounter Care Teams Pipe Maker Relationship Specialty Start Date End Date No Primary/Referring, Phy PCP - General 06/26/22 documented as of this encounter
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
--- OUTSIDE RECORDS SUMMARY | 2024-03-27 07:15 | XMS_ITS | Clinical Summary ---
Author Name Unknown Organization [facility] Address [address] [place] [address] Care Team Providers Care Head Of Conservation Name Role Phone No Primary/Referring, Phy Primary Care Provider Unavailable Source Comments You are receiving this document as you are listed as the primary care provider,follow-up provider, or the patient has been referred to you for consultation.This is in compliance with the Medicare andMedicaid EHR Incentive Program,which states Providers who transition their patient to another setting of careor provider of care or refers their patient to another provider of care shouldprovide summary care record for each transition of care or referral. [employer] [facility] Hospital[facility] Allergies Active Allergy Reactions Criticality Noted Date Comments Amantadines 06/14/2015 Ampicillin 07/17/2003 PN: LW Reaction: HIVES [place] 06/14/2015 Nsaids Other, see comments High 04/06/2018 Acute renal failure Other reaction(s): Other (see comments) Acute renal failure Acute renal failure Renal failure Acute renal failure Pineapple Unknown,Other, see comments 06/09/2020 Ziprasidone 06/14/2015 Medications Medication Sig Dispensed Refills Start Date End Date Status polyethylene glycol (AKA MIRALAX) packetIndications :Constipation Take 17 g by mouth two times a day. Indications: Constipation 06/14/2015 Active traZODone (DESYREL) 150 MG tablet Take 1 Tablet (150 mg) by mouth daily at bedtime. 06/14/2015 Active levothyroxine (SYNTHROID) 100 MCG tablet Take 1 Tablet (100 mcg) by mouth daily. Before breakfast 06/14/2015 Active cholecalciferol (AKA VITAMIN D3) 1000 UNITS capsule Take 1 Capsule (1,000 Units) by mouth daily. 06/14/2015 Active acetaminophen (TYLENOL) 325 MG tabletIndications :Pain Take 1-2 Tablets (325-650 mg) by mouth two times daily as needed. Indications: Pain Active albuterol 2.5 mg/3 mL, 0.083%, (PROVENTIL) nebulizer solution 1 Each (2.5 mg) by Nebulization route every 4 hours as needed for Wheezing or Shortness of Breath. Active polyvinyl alcohol (ARTIFICIAL TEARS) 1.4 % eye drop solution Take 1 Drop as instructed every 4 hours as needed for Dry Eyes. Active calcium carbonate (TUMS) 500 MG chewable tablet Chew and swallow 1 Tablet (500 mg) by mouth three times a day as needed for Heartburn. And 2 tablets every hour as needed for stomach pain + indigestion. Maximum 10 tablets/24 hours. Active melatonin 5 MG tablet Take 1 Tablet (5 mg) by mouth at bedtime as needed. Active guaiFENesin (ROBITUSSIN) 100 MG/5ML solution Take 10 mL by mouth every 4 hours as needed. Active Emollient (VANICREAM) cream Apply topically every 6 hours as needed (for rash). Active carbamide peroxide (DEBROX) 6.5 % ear drop solution Place 3 Drops into both ears every 4 hours as needed (for excess earwax). Active Camphor-Eucalyptu s-Menthol (VICKS VAPORUB EX) Apply topically underneath nose or to chest every 2 hours as needed. Active amLODIPine (NORVASC) 10 MG tablet Take 1 Tablet (10 mg) by mouth daily. Active FLUoxetine (PROZAC) 10 MG capsule Take 3 Capsules (30 mg) by mouth daily. Active loratadine (CLARITIN) 10 MG tablet Take 1 Tablet (10 mg) by mouth daily. Active pantoprazole DR (PROTONIX) 40 MG tablet Take 1 Tablet (40 mg) by mouth daily. Active sucralfate (CARAFATE) 1 g tablet Take 1 Tablet (1 g) by mouth two times a day. Active sennosides-docusa te sodium (SENOKOT S) 8.6-50 MG per tablet Take 1 Tablet by mouth two times a day. Active montelukast (SINGULAIR) 10 MG tablet Take 1 Tablet (10 mg) by mouth daily at bedtime. Active divalproex (DEPAKOTE ER) 500 MG 24 hour release tablet Take 2 Tablets (1,000 mg) by mouth two times a day. Active UREA, EMOLLIENT, (AKA CARMOL) 20 % cream Apply topically daily. Active umeclidinium (INCRUSE ELLIPTA) 62.5 MCG/INH inhaler Inhale 1 Puff daily. Acti ve fluticasone-salme terol (ADVAIR) 100-50 MCG/DOSE diskus inhaler Inhale 1 Puff two times a day. Rinse mouth/gargle after use Active cyclobenzaprine (FLEXERIL) 5 MG tablet Take 1 Tablet (5 mg) by mouth every 8 hours as needed for Muscle Spasms. Active sodium chloride (OCEAN) 0.65 % nasal solution Place 2 Sprays into both nostrils every 2 hours as needed. Active EPINEPHrine (EPIPEN) 0.3 MG/0.3ML injection Inject 0.3 mL (0.3 mg) intramuscularly as needed. Active nystatin (MYCOSTATIN) 256743 UNIT/GM cream Apply topically two times daily as needed. Active atorvastatin (LIPITOR) 40 MG tabletIndications :to [...] before meals. Indications: Diabetes 1 Each 03/02/2022 Active lancets (ACCU-CHEK FASTCLIX)Indicati ons:Diabetes mellitus type II (HRC) Use 1 Each to test two times a day before meals. 102 Each 03/02/2022 Active lancet (ACCU-CHEK FASTCLIX) deviceIndications :Diabetes Mellitus Use 1 Each to test two times a day before meals. Indications: Diabetes 1 Each 03/02/2022 Active blood glucose (ACCU-CHEK GUIDE) test stripIndications: Diabetes Mellitus Use to test two times a day before meals. Each test strip is for one time use only. Indications: Diabetes 100 Strip 03/02/2022 Active calcitriol (ROCALTROL) 0.25 MCG capsule Take 1 Capsule (0.25 mcg) by mouth daily. Active Glycerin, Laxative, (GLYCERIN, ADULT, RE) Insert 1 Suppository rectally as needed. If no BM in 96 hours Active Icosapent Ethyl (VASCEPA) 1 g CAPS Take 2 Capsules (2 g) by mouth two times a day. Active gabapentin (NEURONTIN) 300 MG capsule Take 1 Capsule (300 mg) by mouth daily at bedtime. Active propranolol (INDERAL) 60 MG tablet Take 1 Tablet (60 mg) by mouth three times a day. Active clozapine 100 MG tablet Take 1 Tablet (100 mg) by mouth two times a day. Active OLANZapine (ZYPREXA) 10 MG tablet Take 0.5 Tablets (5 mg) by mouth as needed. May repeat every 4 hours as needed up to 10mg/day Active diphenhydrAMINE (BENADRYL ALLERGY) 25 MG tablet Take 2 Tablets (50 mg) by mouth every 6 hours as needed for Itching. Active traMADol (ULTRAM) 50 MG tablet Take 1 Tablet (50 mg) by mouth two times daily as needed for Pain. 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 Aggression 06/14/2015 [place]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 06/14/2015 Suicidal behavior 02/17/2015 Anesthesia of skin 08/16/2014 Generalized abdominal pain 05/12/2013 Arteriovenous fistula 02/20/2013 ESRD (end stage renal disease) on dialysis 02/18 Overview: Due to lithium toxicity Jun 2012, dialysis MWF at [facility] Overview: Due to lithium toxicity Jun 2012, dialysis MWF at [facility] Gastroesophageal reflux disease 02/18/2013 Borderline intellectual functioning 06/04/2012 Bipolar 1 disorder 06/03/2012 Acanthosis nigricans 02/22/2010 Posttraumatic stress disorder 01/19/2010 Attention deficit hyperactivity disorder (ADHD) 07/21/2003 Overview: LW Onset: [id number] ; Attention Deficit Dis w Hyperactivity Episodic mood disorder 07/21/2003 Overview: LW Onset: 15Hob50 ; Mood Disorder Encounters Date Type Department Care Team Description 03/23/2024 8:22 PM CDT - 03/24/2024 12:58 AM CDT Emergency Emergency Dept [address] [place] [id number] Neyda Campbell PA-C 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); Suicidal ideation Discharge Disposition: Home 03/21/2024 10:19 PM CDT - 03/22/2024 12:21 AM T Emergency Emergency Dept [address] [place] [id number] Jose Boles MD Adjustment disorder with depressed mood (HRC) (Primary Dx) Discharge Disposition: Home 12/26/2023 9:29 PM [facility] - 12/28/2023 9:36 AM [facility] Emergency Emergency Dept [address] [place] [id number] Adeel Underwood MD Cluster B personality disorder (HRC) (Primary Dx); Autism spectrum (HRC) Discharge Disposition: Home from Last 3 Months [...] Sign Reading Time Taken Comments Blood Pressure 136/78 03/23/2024 8:35 PM CDT Pulse 79 03/23/2024 8:35 PM CDT Temperature 36.4 ??C (97.6 ??F) 03/23/2024 8:35 PM CD T Respiratory Rate 16 03/23/2024 8:35 PM CDT Oxygen Saturation 98% 03/23/2024 8:35 PM CDT Inhaled Oxygen Concentration - - Weight 136.6 kg (301 lb 3.2 oz) 01/11/2023 4:30 PM [employer] Height 165.1 cm (5' 5) 01/11/2023 4:30 PM [employer] Body Mass Index 50.12 01/11/2023 4:30 PM [employer] Plan of Treatment Health Maintenance Due Date Last Done Comments Cervical Cancer Screening Due 1997 Diabetes: Foot Exam 1997 Hep C Screening (Preventive Services) 1997 MTM Targeted 1997 Medicare Annual Wellness Visit 1997 HepB (1) 2017 Pneumococcal (3 - PPSV23 or PCV20) 08/20/2018 08/20/2013, 07/23/2012 COVID-19 Vaccine (2 - 2022-2 4 season) 2023 04/29/2021 Diabetes: Eye Exam 10/05/2023 10/05/2022 Diabetes: HGBA1C 01/01/2024 10/01/2023, 04/2023, 04/04/2023, Additional history exists Diabetes: Lipid Panel 02/27/2027 [...] 12/04/2023, 04/2020, 10/31/2020, Additional history exists Procedures Procedure Name Priority Date/Time Associated Diagnosis Comments HGB A1C (EXTERNAL RESULT) Routine 10/01/2023 3:18 PM [employer] LIPID PANEL & DIRECT LDL (IF NEEDED) Routine 02/27/2022 7:09 AM CDT from Last 3 Months or Most Recently Relevant to Health Maintenance Results * (ABNORMAL) Lipid Panel and Direct LDL(If Needed) (02/27/2022 7:09 AM CDT) Cholesterol 244(H) 0 - 199 mg/dL 02/27/2022 8:13 AM CDT [facility] Triglyceride 470(H) <=149 mg/dL 02/27/2022 8:13 AM CDT [facility] HDL Cholesterol 34(L) >=40 mg/dL 8:13 AM CDT [facility] LDL, Calculated 8:13 AM [facility] Comment:Unable to calculate, raw result outside instrument reportable range. Non HDL Chol, Calculated 210(H) <=159 mg/dL 02/27/2022 8:13 AM [facility] Cholesterol/HDL Ratio 7.2 02/27/2022 8:13 AM [facility] Blood Venipuncture / Unknown 02/27/2022 7:09 AM CDT 02/27/2022 7:26 AM CDT [facility] - 02/27/2022 8:13 AM [facility] Calculated LDL is invalid when Triglyceride is >400 mg/dL. Conchis Lopez PA-C LAB_[id number] [id number], [facility] [phone] from Last 3 Months or Most Recently Relevant to Health Maintenance Advance Directives * Full Code (Latest Code Status on File) Date Activated Date Inactivated Comments 01/11/2023 5:12 PM 01/12/2023 6:22 PM * Full Code Date Activated Date Inactivated Comments 02/25/2022 1:02 PM 03/06/2022 4:20 PM Care Teams Head Of Conservation Relationship Specialty Start Date End Date No Primary/Referring, Phy PCP - General 06/26/22
--- OUTSIDE RECORDS SUMMARY | 2024-03-27 07:15 | XMS_ITS | Clinical Summary ---
Author Name Unknown Organization [facility] Address [place], [place] [address] Care Team Providers Care Finishing Wire Sawyer Name Role Phone Stephy Coles Primary Care Provider Fatimah Tavares DPM Unavailable [phone] Mandie Powell MD Unavailable Finesse Salomon MD Unavailable [phone] Lynne Caban MD Unavailable [phone] Cinda Lenz NP Unavailable [phone] Anastasiia Arenas PA-C Unavailable [phone] Allergies Active Allergy Reactions Criticality Noted Date Comments Amoxicillin Hives Medium 11/23/2005 Ziprasidone Ataxia,Muscle Weakness Medium 11/23/2005 L [place] Renal Failure 05/10/2015 Nsaids (Non-Steroidal Anti-Inflammatory Drug) Other - Describe In Comment Field High 04/06/2018 Acute renal failure Acute renal failure Penicillins *Unknown 10/12/2021 Amantadine Sedation High 05/10/2015 Ziprasidone Anaphylaxis High 06/20/2021 Medications Medication Sig Dispensed Refills Start Date End Date Status albuterol HFA (PRO-AIR; VENTOLIN; PROVENTIL) 90 mcg/actuation inhalerIndications: Mild intermittent asthma without complication Inhale 1-2 Puffs by mouth every 4 hours if needed. for Shortness of breath or wheezing. 1 Each 07/30/202 1 Active CPAPIndications:DEBRA (obstructive sleep apnea) CPAP [...] Length of need: 99 months 1 Each 2 Active urea 20% topical 20 % creamIndications:Ca llus of foot Apply topically to affected area(s) once daily. 85 g 5 2 Active durable medical equipment (DME)Indications:Ca llus of foot,Type 2 diabetes mellitus without complication, unspecified whether bed bug exterminator insulin use (HC),Peripheral polyneuropathy,Pes planus, unspecified laterality,Equinus contracture of ankle Extra depth diabetic shoes, 3 pair tri layer accommodative inserts 1 Each 2 Active Advair Diskus 100-50 mcg/dose diskus inhaler 2 Active Shower ChairIndications:Le g weakness, bilateral For home use. 1 Each 2 Active divalproex (DEPAKOTE ER) 500 mg Extended-Release tablet Take 1,000 mg by mouth two times daily. Active cholecalciferol (VITAMIN D3) 1,000 unit capsule 2 Active sennosides-docusate (Senna Plus) (8.6-50 mg) tabletIndications:C hronic constipation Take 1 Tablet by mouth two times daily. 180 Tablet 3 2 Active Gavilax 17 gram/dose powder 3 Active medication order composer Melatonin Gummies 5 mg - take 2 gummies as needed for sleep, max of 4 gummies 0 3 Active cloZAPine (CLOZARIL) 50 mg tablet Take 2 Tablets (100 mg) by mouth two times daily. 0 3 Active haloperidoL (HALDOL) 2 mg tablet 3 Active Accu-Chek Fastclix Lancet DrumIndications:Typ e [...] ONCE DAILY 100 Each 3 3 Active allopurinoL (ZYLOPRIM) 100 mg tabletIndications:A cute gout of right foot, unspecified cause 1/2 tab every other day PO 15 Tablet 2 3 Active gabapentin (NEURONTIN) 100 mg capsuleIndications: Peripheral polyneuropathy Take 1 Capsule (100 mg) by mouth at bedtime. 30 Capsule 5 3 Active loratadine (CLARITIN) 10 mg [...] Shortness Of Breath or Wheezing. 75 mL 3 Active montelukast (SINGULAIR) 10 mg tabletIndications:A [...] of urine For home use. 32 Each 11 4 Active hydrocortisone 2.5% creamIndications:He morrhoids, external Apply topically to affected area(s) two times daily. 30 g 4 Active witch tamika-glycerin (TUCKS) padmIndications:Hem orrhoids, external Apply 1 Each topically to affected area(s) every hour while awake as needed (after BM or for itching). 100 Each 4 Active cyclobenzaprine (FLEXERIL) 5 mg tabletIndications:M uscle spasm TAKE 1 TABLET BY MOUTH EVERY 8 HOURS NEEDED FOR MUSCLE SPASMS 30 Tablet 11 4 Active dulaglutide (Trulicity) 1.5 mg/0.5 mL subcutaneous penIndications:Type 2 diabetes mellitus with chronic kidney disease, without long-term current use of insulin, unspecified CKD stage (HC) INJECT 1.5MG SUBCUTANEOUSLY ONCE A WEEK 2 mL 5 4 Active LORazepam (ATIVAN) 0.5 mg tabIndications:Auti sm spectrum disorder 1 tab PO 30 minutes before procedure. may repeat if still anxious. 2 Tablet 4 Active traMADoL (ULTRAM) 50 mg tabletIndications:A bdominal pain, RUQ (right upper quadrant) Take 1 Tablet (50 mg) by mouth every 6 hours if needed for Pain. 8 Tablet 5 4 Active Simethicone 125 mg capsuleIndications: Gassiness Take 1 Capsule (125 mg) by mouth 4 times daily if needed for Flatulence. Max dose: 500 mg per 24 hrs 90 Capsule 2 4 Active norethindrone, Contraceptive, (MICRONOR, 28,) 0.35 mg tabletIndications:M enorrhagia with irregular cycle Take 1 Tablet (0.35 mg) by mouth once daily. 28 Tablet 12 4 Active FLUoxetine (PROZAC) 40 mg capsule Take 60 mg by mouth every morning. 4 Active FLUoxetine (PROZAC) 20 mg capsule 2 03/03/20 24 Discontinu ed(*Medica tion adjustment ) FLUoxetine (PROZAC) 10 mg capsule 2 03/03/20 24 Discontinu ed(*Medica tion adjustment ) Hospital, Clinic, or Other Facility Administered Medication Ordered Dose Route Frequency Start Date End Date Status darbepoetin eric (ARANESP) 60 mcg/0.3 mL in polysorbate syringeIndications:Chronic kidney disease, stage IV (severe) (HC),Anemia, chronic renal failure, unspecified stage 60 mcg SubQ ONE TIME 04/08/2024 04/08/2024 Active darbepoetin eric (ARANESP) 60 mcg/0.3 mL in polysorbate syringeIndications:Chronic kidney disease, stage IV (severe) (HC),Anemia, chronic renal failure, unspecified stage 60 mcg SubQ ONE TIME 03/03/2024 03/03/2024 Ended Active Problems Problem Noted Date Diagnosed Date Platelets decreased 03/07/2024 Pap smear for cervical cancer screening 02/14/20 24 Overview: 01/2024 NIL/HPV Negative Plan: Pap and HPV due 01/2029 Class 2 severe obesity with body mass index (BMI) of 35 to 39.9 with serious comorbidity 01/08/2024 T wave inversion in EKG 12/04/2023 Autism [...] (obstructive sleep apnea) 06/22/2021 HTN (hypertension) 06/22/2021 Chronic constipation 06/22/2021 Poor nutrition 06/22/2021 Anterior [...] 04/29/2018 Type 2 diabetes mellitus without complication [place]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 06/14/2015 Constipation 09/12/2013 Low back pain [...] 08/30/2022 Anemia of unknown etiology 06/24/2021 1 Morbid obesity with BMI of 45.0-49.9, adult 06/22/2021 01/08/2024 Body mass index (BMI) of 50. 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 Encounters Date Type Department Care Team Description 2024 Orders Only [facility] Scanner 1 scan: (1-Ord) INCOMING RECORDS-SLEEP STUDY, [facility], 2024 2024 Orders Only [facility] Scanner 1 scan: (1-Ord) INCOMING RECORDS-PFT, [facility], 2024 03/13/[address] [phone] Stephy Coles, Form 03/12/[address] [phone] Stephy Coles, Lab results 03/05/2024 10:30 AM CDT Ancillary Procedure [facility] [[email or web address]] [address] [place] [address] 03/05/[address] [phone] Stephy Coles, Refill Request (Lactulose 15mml) 03/05/2024 Orders Only [facility] [[email or web address]] [address] [place] [address] Jaclyn Banks PA 1 scan: (1-Ord) EKG-NFLD-03/04/24 03/05/[address] [phone] Stephy Coles DO Error-please disregard 03/05/2024 Telephone [facility] [[email or web address]] [address] [place] [address] Jaclyn Banks Results 03/04/2024 1:10 PM CDT Office Visit [facility] [[email or web address]] [address] [place] [address] Jaclyn Banks PA Abdominal Pain (With some chest pain and low back pain-also vaginal odor, hurts to urinate-started a few days ago) 03/04/2024 Travel 03/03/2024 10:30 AM CDT Office Visit [facility] [address] [place] [phone] Cinda Lenz NP Follow Up (1 month, renal); Medication Management; Immunization/Injecti on (Aranesp) 03/03/2024 Travel 02/29/2024 Telephone [facility] [address] [place] [phone] Jaclyn Loja MD Prior Authorization (ARANESP ([id number])) 02/28/2024 Refill [facility] [address] [place] [phone] Stephy Coles DO Refill Request (Lactulose) 02/25/[address] [phone] Stephy Coles DO Form (Diabetic Standard Written Order. Fax back to Byron @ ) 02/25/2024 Orders Only [address] [address] Cinda Lenz NP Lab (Aranesp Orders) 02/05/2024 11:45 AM CDT Office Visit [address] [phone] Stephy Coles DO IUD (removal) 02/05/[address] [phone] Stephy Coles DO Concerns 02/04/[address] [phone] Stephy Coles DO 02/04/2024 Travel 01/28/2024 11:30 AM LIGHT TRUCK DRIVER Office Visit [address] [address] Jaclyn Loja MD Follow Up (F/U ll Flank pain on both sides, has appt with Urology coming up) 01/28/2024 Travel 01/25/2024 Refill [facility] [address] [place] [phone] Stephy Coles DO Refill Request (Trulicity) 01/20/2024 Refill [facility] [address] [place] [address] Stephy Coles DO Refill Request (Cyclobenzaprine) 01/16/[address] [phone] Stephy Coles, DO Form 01/15/2024 Orders Only [facility] [address] [address] Levy Langford, PT <No scans attached> 01/09/2024 Orders Only [facility] Scanner 1 scan: (1-Ord) [facility], MODERATE PERISISTENT ASTHMA, UNCOMPLICATED, 01/09/2024 01/08/2024 11:45 AM LIGHT TRUCK DRIVER Office Visit [address] [phone] Stephy Coles DO Rectal Problem (Lump on rectum) 01/08/[address] [address] Jaclyn Loja MD Results (Neph) 01/08/[address] [address] Jaclyn Loja Prior Authorization (ARANESP ([id number])/) 01/07/2024 11:00 AM LIGHT TRUCK DRIVER Office Visit [address] [address] Jaclyn Loja MD Follow Up (3 MNTH ll HS urine accident, not seeing Urology, mom concerned with increase of incontinence. //Difficulty eating, states nauseous, wondering if kidney related. ) 01/07/[address] [address] Jaclyn Loja MD Prior Authorization (Aranesp) 01/07/2024 Travel from Last 3 Months Immunizations Name Administration Dates Next Due COVID-19 Vaccine Spikevax (M oderna 50mcg/0.5mL) 12YO+ 5799-0220 Formula PF 01/08/2024 DTaP 03/28/2002, 8,1997,07/17,1997 HIB PRP-T (ActHIB,Hiberix) 07/01/1998,,1997,05/22 [...] IIV3 (Age >=3 years) 09/19/2012 Influenza, IIV4 12/04/2023, 0,08/20/2018,04/26 MMR 03/28/2002,07/01/1998 Meningococcal Vaccine (Menactra) 04/26/2015,07/28,05/07/2008 Meningococcal [...] Sign Reading Time Taken Comments Blood Pressure 120/86 03/04/2024 1:23 PM CDT Pulse 95 03/04/2024 1:23 PM CDT Temperature 36.5 ??C (97.7 ??F) 10/29/2023 8:45 AM CS T Respiratory Rate 12 02/05/2024 11:59 AM CDT Oxygen Saturation 96% 03/04/2024 1:23 PM CDT Inhaled Oxygen Concentration - - Weight 100.7 kg (222 lb) 03/04/2024 1:23 PM CDT Height 167 cm (5' 5.75) 10/29/2023 8:45 AM LIGHT TRUCK DRIVER Body Mass Index 36.1 10/29/2023 8:45 AM LIGHT TRUCK DRIVER Plan of Treatment Upcoming Encounters Date Type Department Care Team (Late st Contact Info) Description 04/09/2024 9:30 AM CDT Office Visit [facility] [address] [address] Cinda Lenz NP [address] [phone] 06/26/2024 1:00 PM CDT Office Visit [facility] [[email or web address]] [address] [place] [address] Nima Puri MD [address] [place] [address] Health Maintenance Due Date Last Done Comments Hepatitis B series for Diabe kerrie (6 of 6 - Risk Dialysis 4-dose series) 03/11/2015 03/11/2014, 03/11/2014, 03/11/2014, Additional history exists COVID-19 vaccine series ( season) 2024 01/08/2024, 04/29/2021 Depression screening for age 12+ 06/28/2024 06/28/2023, 06/26/2023, 06/26/2023, Additional history exists Influenza for age 9-49 07/27/2024 , 10/31/2020, 10/31/2020, Additional history exists BMI (ht and wt on same day) for age 18+ 10/29/2024 10/29/2023, 07/23/2023, 07/09/2023, Additional history exists Tetanus booster 04/30/2027 04/30/2017, 08/12/2008 Pap test for age 21-65 02/04/2029 , 02/05/2024, 11/06/2017 (Verified in Care Everywhere or Patient Record) Tdap Completed 04/30/2017, 08/12/2008 Hepatitis C screening for ag e 18-79 Completed 05/25/2023 HIV for age 15-65 Completed 10/01/2023 Pneumococcal series for age 6-64 Completed 12/04/2023, 08/20/2013, 07/23/2012 Medical Devices Implanted Type Area Spool Hauler Device Identifier Shelf Expiration Date Model / Serial / Lot [facility] [id number] - [id number] Implanted:Qty: 1 on 05/10/2015 by Sandy Miranda MD at [facility] N/A: Uterus 12/25/2020 [facility] [id number] Description:Paragard IUD [facility] [id number]. lot# [id number] Procedures Procedure Name Priority Date/Time Associated Diagnosis Comments [facility] 2024 12:00 AM CDT [facility] 2024 12:00 AM CDT EKG 12 LEAD Routine 03/05/2024 1:00 PM CDT Tachycardia NC READING EKG - NO CHARGE, COMP ONLY Routine 03/05/2024 12:[address] ABDOMEN PELVIS WO ELKE 03/05/2024 11:06 AM CDT Right sided abdominal pain Elevated lipase Elevated liver enzymes Upper abdominal pain URINALYSIS MICROSCOPIC Routine 2:12 PM CDT Right sided abdominal pain UA W/ SEDIMENT EXAM REFLEXED PER CRITERIA Routine 03/04/2024 2:12 PM CDT Right sided abdominal pain CWS PATH REVIEW HEMATOLOGY Routine 03/04/2024 2:11 PM CDT Right sided abdominal pain RED CELL MORPHOLOGY Routine 03/04/2024 2 :11 PM CDT Right sided abdominal pain PLATELET ESTIMATE Routine 03/04/2024 2:1 1 PM CDT Right sided abdominal pain CBC WITH AUTO DIFFERENTIAL Routine 03/04/2024 2:11 PM CDT Right sided abdominal pain C-REACTIVE PROTEIN Routine 03/04/2024 2: 11 PM CDT Right sided abdominal pain LIPASE Routine 03/04/2024 2:11 PM CDT Right sided abdominal pain COMP METABOLIC PANEL Routine 03/04/2024 2:11 PM CDT Right sided abdominal pain CBC WITH AUTO DIFFERENTIAL Routine 03/04/2024 2:11 PM CDT Right sided abdominal pain HEMOGLOBIN STAT 03/03/2024 10:46 AM CDT Chronic kidney disease, stage IV (severe) (HC) Anemia, chronic renal failure, unspecified stage BASIC METABOLIC PANEL Routine 03/03/2024 10:46 AM CDT Chronic kidney disease, stage IV (severe) (HC) MEETING SPECIALIST THIN PREP PAP SCREEN IMAGED Routine 02/05/2024 1:44 PM CDT Cervical cancer screening HPV THIN PREP Routine 02/05/2024 1:44 PM CDT Cervical cancer screening SCAN-PULMONARY FUNCTION TEST 01/09/2024 12:00 AM LIGHT TRUCK DRIVER URINE CULTURE Routine 01/08/2024 12:50 PM LIGHT TRUCK DRIVER Urinary incontinence, unspecified type UA W/ SEDIMENT EXAM REFLEXED PER CRITERIA Routine 01/08/2024 12:50 PM LIGHT TRUCK DRIVER Urinary incontinence, unspecified type IRON PLUS IRON BINDING CAP Add On 01/07/2024 12:03 PM LIGHT TRUCK DRIVER Chronic kidney disease, stage IV (severe) (HC) Anemia, chronic renal failure, unspecified stage FERRITIN Add On 01/07/2024 12:03 PM LIGHT TRUCK DRIVER Anemia of unknown etiology LC ERYTHROPOIETIN (EPO), SERUM Routine 01/07/2024 12:03 PM LIGHT TRUCK DRIVER Chronic kidney disease, stage IV (severe) (HC) VITAMIN D 25 (DEFICIENCY) Routine 01/07/2024 12:03 PM LIGHT TRUCK DRIVER Chronic kidney disease, stage IV (severe) (HC) PTH,INTACT Routine 01/07/2024 12:03 PM LIGHT TRUCK DRIVER Chronic kidney disease, stage IV (severe) (HC) PHOSPHORUS Routine 01/07/2024 12:03 PM LIGHT TRUCK DRIVER Chronic kidney disease, stage IV (severe) (HC) HEMOGLOBIN Routine 01/07/2024 12:03 PM LIGHT TRUCK DRIVER Chronic kidney disease, stage IV (severe) (HC) BASIC METABOLIC PANEL Routine 01/07/2024 12:03 PM LIGHT TRUCK DRIVER Chronic kidney disease, stage IV (severe) (HC) ALBUMIN Routine 01/07/2024 12:03 PM LIGHT TRUCK DRIVER Chronic kidney disease, stage IV (severe) (HC) ANTI HIV 1/2 Routine 10/01/2023 3:18 PM LIGHT TRUCK DRIVER Screen for STD (sexually transmitted disease) LC HCV ANTIBODY RFX TO QUANT PCR Routine 05/25/2023 2:07 PM CDT Encounter for hepatitis C screening test for low risk patient from Last 3 Months or Most Recently Relevant to Health Maintenance Results * [facility] (2024 12:00 AM CDT) Scanner OTHER * [facility]AN [facility]AGNOST[facility] (2024 12:00 AM CDT) Scanner OTHER * EKG 12 LEAD (03/05/2024 1:00 PM CDT) Jaclyn TAI EKG ORD * NC READING EKG - NO CHARGE, COMP ONLY (03/05/2024 12:58 PM CDT) Jaclyn TAI PB - PROVIDER READ INGS * CT ABDOMEN PELVIS WO (03/05/2024 11:06 AM CDT) Anatomical Region Laterality Modality Abdomen, Pelvis, AORTA, LIVER, SPLEEN Computed Tomography 03/05/2024 11:2 8 AM CDT Impressions 03/05/2024 11:28 AM CDT No imaging findings pertinent to the indication for the exam or significant unrelated findings. Incidental findings described in the body of the report. The study is performed without intravenous contrast. ??This limits the sensitivity of the exam for the detection bowel pathology, focal lesions of the abdominopelvic viscera and vascular pathology including significant vascular stenosis, occlusion and dissection. Please note that all CT scans at this facility use dose modulation, iterative reconstruction, and/or weight-based dosing when appropriate to reduce radiation dose to as low as reasonably achievable. Dictated by Adrian Harvey MD @ 03/05/2024 11:28:06 AM (Electronically Signed) Narrative 03/05/2024 11:28 AM CDT For Patients: ??As a result of the Century Cures Act, medical imaging exams and procedure reports are released immediately into your electronic medical record. ??You may view this report before your referring provider. ??If you have questions, please contact your health care provider. INDICATION: Right-sided lower abdominal pain. Elevated serum lipase. COMPARISON: None available. TECHNIQUE: CT of the abdomen and pelvis without intravenous contrast. ?? Please note that all CT scans at this facility use dose modulation, iterative reconstruction, and/or weight-based dosing when appropriate to reduce radiation dose to as low as reasonably achievable. FINDINGS: The study is performed without intravenous contrast. ??This limits the sensitivity of the exam for the detection bowel pathology, focal lesions of the abdominopelvic viscera and vascular pathology including significant vascular stenosis, occlusion and dissection. ABDOMEN Liver: Normal hepatic attenuation. ??No suspicious focal hepatic lesion. No intrahepatic biliary ductal dilatation. Gallbladder: Surgically absent. Normal common duct caliber. Pancreas: Normal pancreatic attenuation. No focal lesion. Normal duct caliber. No peripancreatic inflammatory changes. Spleen: Normal splenic attenuation. No suspicious focal lesion. Adrenal Glands: Symmetrical adrenal glands. No focal lesion of significance. Kidneys: Normal bilateral renal attenuation. No suspicious focal lesion. No obstructing nephrolith or dilatation of the intrarenal collecting systems. Gastrointestinal tract: Normal caliber, attenuation and wall thickness of the gastrointestinal tract. No inflammatory changes. Normal mesentery. Appendectomy. Vascular: Normal outer wall to outer wall abdominal aortic caliber. Patency and luminal caliber of the abdominopelvic arterial and venous vasculature cannot be assessed on this noncontrast study. Additional findings: No incidental adenopathy. No significant ascites, free fluid or pneumoperitoneum. ? PELVIS No bladder lesion is identified. Interval removal of the IUD. No abnormal free fluid. No incidental adenopathy. SKELETON AND BODY WALL No acute or suspicious incidental findings. Unchanged anterior abdominal wall subcutaneous varicosities as on the prior exam. LOWER THORAX Left lower lobe pleural-based reticular and bandlike opacities consistent with nonspecific minor fibrosis. Subsegmental (discoid) atelectasis may coexist. Procedure Note Adrian Harvey MD - 03/05/2024 For Patients: As a result of the Century Cures Act, medical imagingexams and procedure reports are released immediately into your electronicmedical record. You may view this report before your referring provider.If you have questions, please contact your health care provider. INDICATION: Right-sided lower abdominal pain. Elevated serum lipase. COMPARISON: None available. TECHNIQUE: CT of the abdomen and pelvis without intravenous contrast. Please notethat all CT scans at this facility use dose modulation, iterativereconstruction, and/or weight-based dosing when appropriate to reduceradiation dose to as low as reasonably achievable. FINDINGS: The study is performed without intravenous contrast. This limits thesensitivity of the exam for the detection bowel pathology, focal lesionsof the abdominopelvic viscera and vascular pathology including significantvascular stenosis, occlusion and dissection. ABDOMEN Liver: Normal hepatic attenuation. No suspicious focal hepatic lesion. Nointrahepatic biliary ductal dilatation. Gallbladder: Surgically absent. Normal common duct caliber. Pancreas: Normal pancreatic attenuation. No focal lesion. Normal ductcaliber. No peripancreatic inflammatory changes. Spleen: Normal splenic attenuation. No suspicious focal lesion. Adrenal Glands: Symmetrical adrenal glands. No focal lesion ofsignificance. Kidneys: Normal bilateral renal attenuation. No suspicious focal lesion.No obstructing nephrolith or dilatation of the intrarenal collectingsystems. Gastrointestinal tract: Normal caliber, attenuation and wall thickness ofthe gastrointestinal tract. No inflammatory changes. Normal mesentery.Appendectomy. Vascular: Normal outer wall to outer wall abdominal aortic caliber.Patency and luminal caliber of the abdominopelvic arterial and venousvasculature cannot be assessed on this noncontrast study. Additional findings: No incidental adenopathy. No significant ascites,free fluid or pneumoperitoneum. PELVIS No bladder lesion is identified. Interval removal of the IUD. No abnormalfree fluid. No incidental adenopathy. SKELETON AND BODY WALL No acute or suspicious incidental findings. Unchanged anterior abdominalwall subcutaneous varicosities as on the prior exam. LOWER THORAX Left lower lobe pleural-based reticular and bandlike opacities consistentwith nonspecific minor fibrosis. Subsegmental (discoid) atelectasis maycoexist. IMPRESSION: No imaging findings pertinent to the indication for the exam orsignificant unrelated findings. Incidental findings described in the bodyof the report. The study is performed without intravenous contrast. This limits thesensitivity of the exam for the detection bowel pathology, focal lesionsof the abdominopelvic viscera and vascular pathology including significantvascular stenosis, occlusion and dissection. Please note that all CT scans at this facility use dose modulation,iterative reconstruction, and/or weight-based dosing when appropriate toreduce radiation dose to as low as reasonably achievable. Dictated by Adrian Harvey MD @ 03/05/2024 11:28:06 AM (Electronically Signed) Jaclyn TAI CT * URINALYSIS MICROSCOPIC (03/04/2024 2:12 PM CDT) RBC 0-2 0-2, None Seen /HPF 03/04/2024 2:24 PM CDT [facility] WBC None Seen 0-2, 3-5, None Seen /HPF 03/04/2024 2:24 PM CDT [facility] BACTERIA None Seen None Seen, Rare, Few Bacteria/ HPF 03/04/2024 2:24 PM CDT [facility] EPITHELIAL CELLS Few None Seen, Few Epi/HPF 03/04/2024 2:24 PM CDT [facility] Urine URINE SPECIMEN / Unknown Non-Blood / Unknown 03/04/2024 2:12 PM CDT 03/04/2024 2:12 PM CDT Jaclyn TAI URINE [facility] [address] [place] [address], [place] [phone] * (ABNORMAL) UA W/ SEDIMENT EXAM REFLEXED PER CRITERIA (03/04/2024 2:12 PM CDT) Only the most recent of2 resultswithin the time period is included. COLOR Yellow Yellow Color 03/04/2024 2:24 PM CDT [facility] CLARITY Clear Clear Clarity 03/04/2024 2:24 PM CDT [facility] SPECIFIC GRAVITY,URINE 1.010 1.010, 1.015, 1.020, 1.025 03/04/2024 2:24 PM CDT [facility] PH,URINE 6.5 6.0, 7.0, 8.0, 5.5, 6.5, 7.5, 8.5 03/04/2024 2:24 PM CDT [facility] UROBILINOGEN, QUALITATIVE Normal Normal EU/dl 03/04/2024 2:24 PM CDT [facility] PROTEIN, URINE 100(A) Negative mg/dL 03/04/2024 2:24 PM CDT [facility] GLUCOSE, URINE Negative Negative mg/dL 03/04/2024 2:24 PM CDT [facility] KETONES,URINE Negative Negative mg/dL 03/04/2024 2:24 PM CDT [facility] BILIRUBIN,URI NE Negative Negative 03/04/2024 2:24 PM CDT [facility] OCCULT BLOOD,URINE Trace(A) Negative 03/04/2024 2:24 PM CDT [facility] NITRITE Negative Negative 03/04/2024 2:24 PM CDT [facility] LEUKOCYTE ESTERASE Negative Negative 03/04/2024 2:24 PM CDT [facility] Urine URINE SPECIMEN / Unknown Non-Blood / Unknown 03/04/2024 2:12 PM CDT 03/04/2024 2:12 PM CDT Jaclyn TAI URINE [facility] [address] [place] [address], [place] [phone] * CWS PATH REVIEW HEMATOLOGY (03/04/2024 2:11 PM CDT) PATH COMMENT Comment 03/08/2024 8:24 AM CDT [facility] TRAL [facility]AT[facility] Comment: Recommend evaluation for iron deficiency. Acanthocytes present, may be associated with renal and/or liver insuffiencey. Reviewed by Betty Mejia MT, MS ([facility]) on 03/07/2024 Blood BLOOD SPECIMEN / Unknown Capillary / Unknown 03/04/2024 2:11 PM CDT 03/04/2024 2:11 PM CDT Jaclyn TAI LABORATORY [facility] [address] [address], [place] * (ABNORMAL) CBC WITH AUTO DIFFERENTIAL (03/04/2024 2:11 PM CDT) WHITE BLOOD COUNT 7.5 4.5 - 11.0 thou/cu mm 03/04/2024 10:10 PM CDT [facility] RED BLOOD COUNT 3.25(L) 4.00 - 5.20 mil/cu mm 03/04/2024 10:10 PM CDT [facility] HEMOGLOBIN 10.0(L) 12.0 - 16.0 g/dL 03/04/2024 10:10 PM CDT [facility] HEMATOCRIT 31.0(L) 33.0 - 51.0 % 03/04/2024 10:10 PM CDT [facility] MCV 95 80 - 100 fL 03/04/2024 10:10 PM CDT [facility] MCH 30.8 26.0 - 34.0 pg 03/04/2024 10:10 PM CDT [facility] MCHC 32.3 32.0 - 36.0 g/dL 03/04/2024 10:10 PM CDT [facility] RDW 17.7(H) 11.5 - 15.5 % 03/04/2024 10:10 PM CDT [facility] PLATELET COUNT 148 140 - 440 thou/cu mm 03/04/2024 10:10 PM CDT [facility] MPV 10.9 6.5 - 11.0 fL 03/04/2024 10:10 PM CDT [facility] NRBC 0.0 % 03/04/2024 10:10 PM CDT [facility] ABS NRBC 0.0 thou /cu mm 03/04/2024 10:10 PM CDT [facility] % NEUT 47.6 % 03/04/2024 10:10 PM CDT [facility] % LYMPH 32.7 % 03/04/2024 10:10 PM CDT [facility] % MONO 14.1 % 03/04/2024 10:10 PM CDT [facility] % EOS 3.6 % 03/04/2024 10:10 PM CDT [facility] % BASO 0.5 % 03/04/2024 10:10 PM CDT [facility] % IMMATURE GRAN (METAS,MYELOS,NC OS) 1.5 % 03/04/2024 10:10 PM CDT [facility] ABSOLUTE NEUTROPHILS 3.6 1.7 - 7.0 thou/cu mm 03/04/2024 10:10 PM CDT [facility] ABSOLUTE LYMPHOCYTES 2.5 0.9 - 2.9 thou/cu mm 03/04/2024 10:10 PM CDT [facility] ABSOLUTE MONOCYTES 1.1(H) <0.9 thou/cu mm 03/04/2024 10:10 PM CDT [facility] ABSOLUTE EOSINOPHILS 0.3 <0.5 thou/cu mm 03/04/2024 10:10 PM CDT [facility] ABSOLUTE BASOPHILS 0.0 <0.3 thou/cu mm 03/04/2024 10:10 PM CDT [facility] ABSOLUTE IMMATURE GRANULOCYTES(MET ,MYELOS,PROS) 0.1 <0.3 thou/cu mm 03/04/2024 10:10 PM CDT [facility] TRA LABORATORY Blood BLOOD SPECIMEN / Unknown Capillary / Unknown 03/04/2024 2:11 PM CDT 03/04/2024 2:11 PM CDT Jaclyn TAI HEMATOLOGY [facility] [address] [place] [address], [address] [address], * (ABNORMAL) RED CELL MORPHOLOGY (03/04/2024 2:11 PM CDT) ACANTHOCYTES Many 03/04/2024 10:10 PM CDT [facility] ELLIPTOCYTES Moderate 03/04/2024 10:10 PM CDT [facility] SCHISTOCYTES Few 03/04/2024 10:10 PM CDT [facility] RBC COMMENT Present(A) RBC morphology appears normal, RBC morphology within normal limits for newborns. 03/04/2024 10:10 PM CDT [facility] Blood BLOOD SPECIMEN / Unknown Capillary / Unknown 03/04/2024 2:11 PM CDT 03/04/2024 2:11 PM CDT Jaclyn TAI HEMATOLOGY Performing Organization Address [facility] Hospital/ZIP Co de Phone Number [facility] [address] [place] [address], [place] * PLATELET ESTIMATE (03/04/2024 2:11 PM CDT) PLATELET ESTIMATE Adequate Adequate, No estimate 03/04/2024 10:10 PM CDT [facility] Blood BLOOD SPECIMEN / Unknown Capillary / Unknown 03/04/2024 2:11 PM CDT 03/04/2024 2:11 PM CDT Jaclyn TAI HEMATOLOGY Performing Organization Address [facility] Co de Phone Number [facility] [address] [place] [address], [place] * (ABNORMAL) C-REACTIVE PROTEIN (03/04/2024 2:11 PM CDT) C-REACTIVE PROTEIN 0.7(H) <0.5 mg/dL 03/04/2024 9:36 PM CDT [facility] Blood BLOOD SPECIMEN / Unknown Venipuncture / Unknown 03/04/2024 2:11 PM CDT 03/04/2024 2:12 PM CDT Jaclyn TAI CHEMISTRY Performing Organization Address [facility] Co de Phone Number [facility] [address] [place] [address], [place] * (ABNORMAL) LIPASE (03/04/2024 2:11 PM CDT) LIPASE 71.4(H) 13.0 - 60.0 IU/L 03/04/2024 10:01 PM CDT [facility] Blood BLOOD SPECIMEN / Unknown Venipuncture / Unknown 03/04/2024 2:11 PM CDT 03/04/2024 2:12 PM CDT Jaclyn [facility]AI [facility] [address] [place] [address], * (ABNORMAL) COMP METABOLIC PANEL (03/04/2024 2:11 PM CDT) SODIUM 140 136 - 145 mmol/L 03/04/2024 9:36 PM CDT [facility] POTASSIUM 4.5 3.5 - 5.1 mmol/L 03/04/2024 9:36 PM CDT [facility] CHLORIDE 102 98 - 107 mmol/L 03/04/2024 9:36 PM CDT [facility] CO2,TOTAL 25 22 - 29 mmol/L 03/04/2024 9:36 PM CDT [facility] ANION GAP 13 5 - 18 03/04/2024 9:36 PM CDT [facility] GLUCOSE 108(H) 70 - 99 mg/dL 03/04/2024 9:36 PM CDT [facility] CALCIUM 9.5 8.6 - 10.0 mg/dL 03/04/2024 9:36 PM CDT [facility] BUN 41(H) 6 - 20 mg/dL 03/04/2024 9:36 PM T [facility] CREATININE 3.02(H) 0.50 - 0.90 mg/dL 03/04/2024 9:36 PM T [facility] BUN/CREAT RATIO 14 10 - 20 9:36 PM CDT [facility] eGFR 21(L) >90 mL/min/1.7 3m2 03/04/2024 9:36 PM T [facility] Comment:As of 2022, eG FR is calculated by the CKD-EPI creatinine equation without race adjustment. ??eGFR can be influenced by muscle mass, exercise, and diet. ??The reported eGFR is an estimation only and is only applicable if the renal function is stable. ALBUMIN 3.7(L) 4.0 - 4.9 g/dL 03/04/2024 9:36 PM CDT [facility] PROTEIN,TOTAL 6.9 6.0 - 8.0 g/dL 03/04/2024 9:36 PM CDT [facility] BILIRUBIN,TOTAL 0.4 0.0 - 1.2 mg/dL 03/04/2024 9:36 PM CDT [facility] ALK PHOSPHATASE 170(H) 35 - 104 IU/L 03/04/2024 9:36 PM CDT [facility] ALT (SGPT) 34 10 - 35 IU/L 03/04/2024 9:36 PM CDT [facility] AST (SGOT) 51(H) 10 - 35 IU/L 03/04/2024 9:36 PM CDT [facility] Blood BLOOD SPECIMEN / Unknown Venipuncture / Unknown 03/04/2024 2:11 PM CDT 03/04/2024 2:12 PM CDT Jaclyn TAI CHEMISTRY [facility] [address] * (ABNORMAL) HEMOGLOBIN (03/03/2024 10:46 AM CDT) Only the most recent of2 resultswithin the time period is included. HEMOGLOBIN 9.6(L) 12.0 - 16.0 g/dL 03/03/2024 10:[address] [facility] MCV 97 80 - 100 fL 03/03/2024 10:[address] [facility] Blood BLOOD SPECIMEN / Unknown Butterfly / Unknown 03/03/2024 10:46 AM CDT 03/03/2024 10:46 AM CDT Cinda Lenz NP HEMATOLOGY [facility] [address] [place] [address] * (ABNORMAL) BASIC METABOLIC PANEL (03/03/2024 10:46 AM CDT) Only the most recent of2 resultswithin the time period is included. SODIUM 140 136 - 145 mmol/L 03/03/2024 11:[address] [facility] POTASSIUM 4.4 3.5 - 5.1 mmol/L 03/03/2024 11:[address] [facility] CHLORIDE 104 98 - 107 mmol/L 03/03/2024 11:[address] [facility] CO2,TOTAL 25 22 - 29 mmol/L 03/03/2024 11:[address] [facility] ANION GAP 11 5 - 18 03/03/2024 11:[address] [facility] GLUCOSE 110(H) 70 - 99 mg/dL 03/03/2024 11:[address] [facility] CALCIUM 9.7 8.6 - 10.0 mg/dL 03/03/2024 11:[address] [facility] BUN 43(H) 6 - 20 mg/dL 03/03/2024 11:[address] [facility] CREATININE 2.99(H) 0.50 - 0.90 mg/dL 03/03/2024 11:[address] [facility] BUN/CREAT RATIO 14 10 - 20 11:[address] [facility] eGFR 21(L) >90 mL/min/1.7 3m2 03/03/2024 11:[address] [facility] Comment:As of 2022, eG FR is calculated by the CKD-EPI creatinine equation without race adjustment. ??eGFR can be influenced by muscle mass, exercise, and diet. ??The reported eGFR is an estimation only and is only applicable if the renal function is stable. Blood BLOOD SPECIMEN / Unknown Butterfly / Unknown 03/03/2024 10:46 AM CDT 03/03/2024 10:46 AM CDT Cinda Lenz NP CHEMISTRY [facility] [address] [place] [address] * MEETING SPECIALIST THIN PREP PAP SCREEN IMAGED (02/05/2024 1:44 PM CDT) Case Report Gynecologic Cytology Report ? Case: [id number] ? Authorizing Provider: ??Stephy Coles, DO ? Collected: ? 02/05/2024 1344 ? Ordering Location: ? [facility] ?Received: ?02/05/2024 1345 ? Clinic ? First Screen: ?Lisette Parker ? Specimen: ?MEETING SPECIALIST ThinPrep Vial Screening, Cervical ? 02/13/2024 1:51 PM CDT [facility]-C ENTRAL LABORATORY INTERPRETATION/ RESULT NEGATIVE FOR INTRAEPITHELIAL LESION OR MALIGNANCY (NIL) (none) 02/13/2024 1:51 PM CDT [facility] LAB[facility] ENTRAL LABORATORY IMEN ADEQUACY Satisfactory for evaluation No endocervical component seen 02/13/2024 1:51 PM CDT [facility] LABOR[facility] HPV REQUEST HPV and PAP 02/13/2024 1:51 PM CDT [facility] LAB[facility] Date of LMP unknown 02/13/2024 1:51 PM CDT [facility] Last Pap Date never 02/13/2024 1:51 PM CDT [facility] Last Pap Result First Pap/Unknown 1:51 PM CDT [facility] EN[facility] Abnormal Pap or [place] Bx in last 5 years No 02/13/2024 1:51 PM CDT [facility] Menstrual Status Hormonally Suppressed 02/13/2024 1:51 PM CDT [facility] [place] Bx Done Today No 02/13/2024 1:51 PM CDT [facility] Additional Information None given 02/13/2024 1:51 PM CDT [facility] Comment: Cytology is screened at [facility] - [address], [place] [address] and [facility] - [address] [place] [address] and [facility] - [address] [place] [address] Interpreted at [facility] - [address], [place] [address] Automated Review Successful 02/13/2024 1:51 PM CDT [facility] Comment:Specimen processed s uccessfully by automated pierce and shave press operator device, ThinPrep Imaging System, [employer] ANCILLARY TESTING MEETING SPECIALIST HPV Ordered, Please see separate report 02/13/2024 1:51 PM CDT [facility] Note The pap test is a screening technique, not a diagnostic procedure. It is used primarily to screen for squamous cancers and precursor lesions. Published studies have shown that it is subject to both false negative and false positive results. The pap test should not be used as the sole means to diagnose or exclude pre-malignant and malignant lesions. 02/13/2024 1:51 PM CDT [facility]- ENTRAL LABORATORY Other (Cervical) Non-Blood / Unknown 02/05/2024 1:44 PM CDT 02/05/2024 1:45 PM CDT Stephy Coles DO PATHOLOGY/CYTOLOGY Performing Organization Address [facility] Co de Phone Number [facility] [address] [place] [address], * HPV HIGH RISK (02/05/2024 1:44 PM CDT) TYPE 16 Negative Negative 02/08/2024 11:32 AM CDT [facility] TRAL LAB[facility]ATORY TYPE 18 Negative Negative 02/08/2024 11:32 AM CDT [facility] OTHER HIGH RISK TYPES Negative Negative 02/08/2024 11:32 AM CDT [facility] Other (Cervical) Non-Blood / Unknown 02/05/2024 1:44 PM CDT 02/06/2024 9:42 AM CDT Narrative [facility] - 02/08/2024 11:32 AM CDT HPV types 16, 18, 31, 33, 35, 39, 45, 51, 52, 56, 58, 59, 66 and 68 DNA were undetectable or below the pre-set threshold. Methodology: Alanis Luciano 4800 HPV Test Stephy Coles DO MICROBIOLOGY Performing Organization Address [facility] Co de Phone Number [facility] [address] [place] [address], * SCAN-PULMONARY FUNCTION TEST (01/09/2024 12:00 AM LIGHT TRUCK DRIVER) Scanner OTHER * URINE CULTURE (01/08/2024 12:50 PM LIGHT TRUCK DRIVER) CULTURE <10,000 CFU/mL multiple organisms 01/11/2024 1:08 PM LIGHT TRUCK DRIVER [facility] TRAL [facility] Urine URINE SPECIMEN / Unknown Non-Blood / Unknown 01/08/2024 12:50 PM LIGHT TRUCK DRIVER 01/08/2024 12:50 PM LIGHT TRUCK DRIVER Stephy Coles DO [facility] [address] [place] [address], [place] * (ABNORMAL) LC ERYTHROPOIETIN (EPO), SERUM (01/07/2024 12:03 PM LIGHT TRUCK DRIVER) Erythropoietin 38.2(H) 2.6 - 18.5 mIU/mL 01/11/2024 7:15 AM LIGHT TRUCK DRIVER [facility] ([facility]) Comment: [employer] DxI 800 Immunoassay System Values obtained with different assay methods or kits cannot be used interchangeably. Results cannot be interpreted as absolute evidence of the presence or absence of malignant disease. Blood BLOOD SPECIMEN / Unknown Butterfly / Unknown 01/07/2024 12:03 PM LIGHT TRUCK DRIVER 01/07/2024 12:03 PM LIGHT TRUCK DRIVER Narrative [facility] ([facility] - 01/11/2024 7:15 AM LIGHT TRUCK DRIVER Performed at: ??01 - [address] ??[id number] Worker: Manuel Quinn MD, Phone: ??[phone] Jaclyn Loja MD LABORATORY [facility] ([facility]) [address] [place], [place] [id number], * VITAMIN D 25 (DEFICIENCY) (01/07/2024 12:03 PM LIGHT TRUCK DRIVER) VITAMIN D TOTAL 47.1 20.0 - 80.0 ng/mL 01/07/2024 8:44 PM LIGHT TRUCK DRIVER [facility] Blood BLOOD SPECIMEN / Unknown Butterfly / Unknown 01/07/2024 12:03 PM LIGHT TRUCK DRIVER 01/07/2024 12:03 PM LIGHT TRUCK DRIVER Narrative [facility] - 01/07/2024 8:44 PM LIGHT TRUCK DRIVER ? Vitamin D Status Deficiency: ? <20 ng/mL Insufficiency: ?20-29 ng/mL Sufficiency: ?30-80 ng/mL Possible Toxicity: ??>80 ng/mL Based on [place] of Medicine recommendations Biotin supplements may cause clinically significant interference for this test assay. ??If interference is suspected, it is strongly recommended that biotin is discontinued for at least one week prior to retesting. Jaclyn Loja MD SEND OUTS Performing Organization Address [facility] Co de Phone Number [facility] [address] [place] [address], * IRON PLUS IRON BINDING CAP (01/07/2024 12:03 PM LIGHT TRUCK DRIVER) IRON 81 37 - 145 ug/dL 01/09/2024 8:11 PM LIGHT TRUCK DRIVER [facility] UIBC (UNSATURATED) 229 112 - 347 ug/dL 01/09/2024 8:11 PM LIGHT TRUCK DRIVER [facility] IRON BINDING CAPACITY 310 250 - 400 ug/dL 01/09/2024 8:11 PM LIGHT TRUCK DRIVER [facility] IRON,% SATURATION 26 14 - 50 % 01/09/2024 8:11 PM LIGHT TRUCK DRIVER [facility] Blood BLOOD SPECIMEN / Unknown Butterfly / Unknown 01/07/2024 12:03 PM LIGHT TRUCK DRIVER 01/07/2024 12:03 PM LIGHT TRUCK DRIVER Jaclyn Loja MD CHEMISTRY Performing Organization Address [facility] Co de Phone Number [facility] [address] [place] [address], [place] * (ABNORMAL) PHOSPHORUS (01/07/2024 12:03 PM LIGHT TRUCK DRIVER) PHOSPHORUS 4.7(H) 2.5 - 4.5 mg/dL 01/07/2024 2:[address] [facility] Blood BLOOD SPECIMEN / Unknown Butterfly / Unknown 01/07/2024 12:03 PM LIGHT TRUCK DRIVER 01/07/2024 12:03 PM LIGHT TRUCK DRIVER Jaclyn Loja MD CHEMISTRY Performing Organization Address City/Va Hospital/ZIP Co de Phone Number [address] [address] * PTH,INTACT (01/07/2024 12:03 PM LIGHT TRUCK DRIVER) CALCIUM 9.4 8.6 - 10.0 mg/dL 01/07/2024 8:44 PM LIGHT TRUCK DRIVER [facility] PTH,INTACT 26.4 15.0 - 69.0 pg/mL 01/07/2024 8:44 PM LIGHT TRUCK DRIVER [facility] Blood BLOOD SPECIMEN / Unknown Butterfly / Unknown 01/07/2024 12:03 PM LIGHT TRUCK DRIVER 01/07/2024 12:03 PM LIGHT TRUCK DRIVER Jaclyn Loja MD SEND OUTS Performing Organization Address [facility] Co de Phone Number [facility] [address] [place] [address], * (ABNORMAL) FERRITIN (01/07/2024 12:03 PM LIGHT TRUCK DRIVER) FERRITIN 361.0(H) 15.0 - 150.0 ng/mL 01/08/2024 11:05 PM LIGHT TRUCK DRIVER [facility] Blood BLOOD SPECIMEN / Unknown Butterfly / Unknown 01/07/2024 12:03 PM LIGHT TRUCK DRIVER 01/07/2024 12:03 PM LIGHT TRUCK DRIVER Stephy Coles DO CHEMISTRY Performing Organization Address [facility]/ZIP Co de Phone Number [facility] [address] [place] [phone], [place] * (ABNORMAL) ALBUMIN (01/07/2024 12:03 PM LIGHT TRUCK DRIVER) ALBUMIN 3.7(L) 4.0 - 4.9 g/dL 01/07/2024 2:[address] [facility] Blood BLOOD SPECIMEN / Unknown Butterfly / Unknown 01/07/2024 12:03 PM LIGHT TRUCK DRIVER 01/07/2024 12:03 PM LIGHT TRUCK DRIVER Jaclyn Loja MD CHEMISTRY [address] [address] * ANTI HIV 1/2 (10/01/2023 3:18 PM LIGHT TRUCK DRIVER) HIV-1/HIV-2 SCREEN Non-Reacti ve Non-Reacti ve 10/01/2023 9:00 PM LIGHT TRUCK DRIVER [facility] Comment:HIV-1 p24 and HIV-1/ HIV-2 Ab Not Detected. Blood BLOOD SPECIMEN / Unknown Butterfly / Unknown 10/01/2023 3:18 PM LIGHT TRUCK DRIVER 10/01/2023 3:19 PM LIGHT TRUCK DRIVER Stephy Coles DO SEND OUTS Performing Organization Address City/Va Hospital/ZIP Co de Phone Number [facility] [address] [place] [phone], * LC HCV ANTIBODY RFX TO QUANT PCR (05/25/2023 2:07 PM CDT) HCV Ab Non Reactive Non Reactive 05/29/2023 12:07 PM CDT [facility] Blood BLOOD SPECIMEN / Unknown Butterfly / Unknown 05/25/2023 2:07 PM CDT 05/25/2023 2:07 PM CDT Narrative [facility] ([facility]) - 05/29/2023 12:07 PM CDT Performed at: ??01 - [address] ??[id number] Worker: Dickson Amado MD, Phone: ??[phone] Stephy Coles DO LABORATORY [facility] ([facility]) [address] [place] [phone], from Last 3 Months or Most Recently Relevant to Health Maintenance Advance Directives * Full Code (Latest Code Status on File) Date Activated Date Inactivated Comments 06/02/2012 4:20 PM 06/04/2012 5:18 PM * Full Code Date Activated Date Inactivated Comments 11/23/2005 3:16 PM 12/07/2005 3:11 PM Care Teams Finishing Wire Sawyer Relationship Specialty [place] [address] [place] [address] PCP - General Family Practice 06/22/21 Fatimah Tavares DPM [address] [place], [place] [address] Surgery - Podiatric 06/22/21 Mandie Powell MD [address] [place], [place] [phone] Dermatology 06/22/21 Finesse Salomon MD [address] [place], [place] [phone] Surgery - Ophthalmology 06/22/21 Lynne Caban MD [address] [facility] [place] [place] Psychiatry 09/23/21 Cinda Lenz, ASSISTANT WOMEN'S BASKETBALL CO[employer] [address] [phone] Nephrology Nurse Practitioner - Adult 07/04/23 Anastasiia Arenas, CRISTOBALC [address] [place] [address] Physician Mapping Analyst 07/25/23
--- OUTSIDE RECORDS SUMMARY | 2024-03-27 07:15 | XMS_ITS | Encounter Summary ---
Author Name Unknown Organization [facility] Address [address], [place] [address] Care Team Providers Care Repairer Switchgear Name Role Phone No Primary/Referring, Phy Primary Care Provider Unavailable Reason for Visit * Reason Comments CRISIS EVALUATION--ED Encounter Details Date Type Department Care Team (Late st Contact Info) Description 03/23/2024 8:22 PM CDT - 03/24/2024 12:58 AM CDT Emergency [facility] [address] [place] [id number] Neyda Campbell PA-C [address] [place], [place] [id number] Adjustment disorder with mixed disturbance of emotions [...] this encounter Discharge Instructions * Discharge Instructions* Neyda Campbell PA-C - 03/23/2024 10:00 PM CDT It is very important you follow-up with this program you have talked about which will provide you with coping skills to help you when you are feeling irritated or agitated. Please do not miss any appointments with this program. I do not think there is any fracture of your finger, likely a bruise. You may use jgja-jle-xcnjgwi medications for this. You may apply ice for 20 minutes multiple times daily for the next 2-3 days ifyou desire. Please follow-up with your outpatient providers including your psychiatrist if you feel you need any medication changes. Today you were given your evening gabapentin, Depakote, Clozaril, along with Haldol. * Attachments The following attachments cannot be sent through Care Everywhere. * Adjustment Disorder (Czech) documented in this encounter Medications at Time [...] pain + indigestion. Maximum 10 tablets/24 hours. Fhwldzd-Ktvybpbuco-B enthol (VICKS VAPORUB EX) Apply topically underneath [...] by mouth daily at bedtime. nystatin (MYCOSTATIN) [id number] UNIT/GM cream Apply topically two times daily [...] topically daily. documented as of this encounter Consult Notes * Summer Ambrose MSW, KILN PACKER - 03/23/2024 9:13 PM CDTAssociated Order(s): ED SOCIAL WORK CONSULT [facility] Emergency Department Social Work Crisis Assessment Current and Past Diagnoses: Mood Disorder (depression, bipolar), Other (see comments) (autism spectrum) Narrative: The patient is a 29 y.o. female who comes to the ED with medics. Per triage: Mode of arrival: [facility] Chief complaint: Crisis evaluation Symptoms/background/relevant history (narrative): The patient was at her senior living when she became violent and trying to engage in self harm behavior. Staff called the police. They placed the patient on a hold and transported her to [facility]. Patient wanded upon arrival per security. RASHAD, NICOLE, and nurse assessed pt in g-pod. Pt is here w/a stuffed animal. She reports she doesn't know what led to her dysregulation today but say she does not feel safe at her senior living. She says she believes she will harm herself at the senior living. When asked what the difference between the [facility] and the hospital is, in terms of her fears she will hurt herself, is she says she does not have anything to harm herself w/at the hospital. When asked about AH/VH, she says she hears voices and sees portals. She denies thoughts of harming other people. She reports she recently had her depakote and another medication changed but couldn't remember exactly what. Pt reports she does have an appt at [facility] planned where she will start a skills-building program. She says she doesn't otherwise know how to regulate herself. SW highly encouraged attending this program to build those regulation skills. When asked if it would be helpful to call her mom/guardian, pt said that her mom would just say pt does not belong at the hospital and needs to return home.Pt requested to order breakfast but SW encouraged her to first take her evening medications, as recommended by the provider, and work w/the provider on next steps from there. Information from collateral (include names and phone numbers) KIMBERLY (Detention, ) Kimberly reports that pt started escalating around 5:50pm. She had just gotten off the phone w/her mom and requested candy. Staff said no because pt gets candy at 2pm snack and something healthier at 8pm. Pt started stomping her feet and verbally threatening staff. Went to her room and threw things in her room. Disrobed a few times. Came out of the room at one point and threw a bar of soap at staff. When disrobing at that point, was spitting and hitting. She attempted to bite staff. Threatened to go into the street and sit there to get run over but ultimately didn't. She did start slamming thedoor in the bathroom area to chip something off the wall to cut herself with but was not successful. Staff called 911 to intervene. Kimberly reports they did provide PRN Haldol at 3pm and this did notappear to help. Pt refused her night time medications. She says they usually try to wait out the meltdowns but she did not appear to be coming down this time. Kimberly believes pt gets attention from going to the hospital. She feels inpatient hospitalization has brought her down in the past. She says she does have some activities during the day at times, like [employer], but knows she can't attend these things when she engages in these destructive behaviors. After assessing pt and consulting w/provider, SW called the senior living back and spoke w/a separate staff. They stated pt can return home but would not be attending her skills building appt as, whenever she goes to the hospital, she is ground for 2 days. 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 ANA MARIA JENNINGS (mom/legal guardian, ) Ana Maria reports pt seems to be returning to old habits of hers. She says she's been observing more self-harm behaviors than harming others. She reports the psychiatrist did make changes to pt's meds, including increasing the prozac and decreasing the depakote. Pt is on clozaril and Ana Maria states shewould prefer that, due to this, pt's regular psychiatrist manages any changes vs the hospital. She says pt sees her psychiatrist about every 3 weeks. She did express concern that pt returning home tonight may lead to her coming back to the hospital again later -- like she did today, following her discharge from the hospital yesterday. She said she may benefit from staying overnight but is not sure. Does patient have legal guardian? (include names, phone numbers, and document contact with guardian) ANA MARIA JENNINGS (mom, ) Does the patient have access to the means or the method related to their plan while in the hospital? No Does the patient have access to the means or the method related to their plan after discharge? Yes Clinical Symptoms: Anxiety and/or panic Dangerousness (include any known information regarding historical or current homicidal, sexual, or physically aggressive behaviors): Pt has been verbally threatening to her staff earlier today. She destroyed property as well. Per chart review, this dysregulation is part of her autism presentation at times. Current Aggression towards others: No - not at the ER. Does the patient have access to firearms? No Suicide Assessment/SIB Pt has chronic thoughts/threats of self-harm. She said today that she had thoughts of cutting herself or hanging herself when she was at home. Staff reported she tried to damage property to use it to harm herself in some way but did not succeed in doing so today. Current Stressors and Relevant History: Triggering events leading to humiliation, shame, and/or despair (e.g. loss of relationship, financial or health status) (real or anticipated) Protective Factors: Positive therapeutic relationships, Supportive social network of family or friends Family History: [place] Situation: retirement Pt is the only resident who lives in the senior living ([facility]) Legal Issues (include comments regarding probation, incarcerations, etc): N/A Employment/Income: Pt is not employed. Mental Health Care: Supervisor Propellant Charge Loading: Laura Pride [facility], ([facility]) Chris Sapp [phone] (-[facility]) Commitment History: [facility], 2021 Community Providers: Dr Panda, Psychiatrist Hospitalizations: 01/10/2023, [facility], homicidal thoughts Chemical use/abuse: Denies Current Chemical Abuse Behavior in ED: Anxious Cooperative Mental Status: Affect: Restricted Appearance: Unremarkable Eye Contact: Engaged Insight: Limited Intellectual Functioning: Developmental delays Mood: Euthymic/neutral Orientation: Person: Yes , Situation: Yes, and Place: Yes Speech: Regular rate and rhythm Thought Process: Coherent and Vague Clinical decision making/rationale: Pt with the past psych history significant for autism spectrum disorder who presents to the ED following an outburst at her senior living that resulted in verbal threats and property destruction. Pt is experiencing baseline thoughts of self-harm but was able to identify protective factors, including upcoming appts for skill building to manage emotional regulation.Collaterals agree pt is at baseline and that they have behavioral management plans at the senior living related to hospital visits and dysregulation. Her guardian would like her outpatient psychiatrist to manage any medication changes. Collateral agrees that the pt is not an immediate danger to self or others and would benefit from community resources vs inpatient hospitalization. Pt does not meet criteria for an emergency 72 hour hold and will be d/c to her senior living where she has staff support. Suicide Risk: Plan: Patient will be discharged back to senior living. Discussed with: STEPH Cazares PA-C, MANN 03/23/2024, 10:12 PM documented in this encounter ED Notes * Triny Marte RN - 03/24/2024 12:55 AM CDT [facility] Hospital ED Nursing Discharge Note Patient discharged: Home. Patient accompanied by: self. Transported by: Walked Belongings were taken home by patient: Yes Work/School Slip given: No Discharge instructions given and explained to patient: Yes Discharge prescriptions explained to patient: N/A Patient verbalized understanding. Yes Patient level of pain on discharge: 0 Patients condition on discharge related to chief complaint and treatment in ED: Stable GCS: 15 Holds documented by nursing during this visit, please review chart for most current hold status: Orders Placed This Encounter Procedures Legal Status: Patient Arrived to ED on PHOA ---End of Report--- * Jackeline Luo RN - 03/23/2024 9:48 PM CDT [facility] called for transport. Will be her in 1-2 hours. * Neyda Campbell PA-C - 03/23/2024 8:39 PM CDT [facility] Emergency Medicine Visit Note Chief Complaint: CRISIS EVALUATION--ED HPI Elisa Jennings is a 29 y.o. female on chart review with a history of episodic mood disorder, intermittent explosive disorder, cluster B personality disorder, autism spectrum disorder, borderline intellectual functioning, who presents with medics from her senior living for crisis evaluation. Per medic report, patient became elevated, throwing things in the senior living, trying to engage in self-harmbehavior. Upon my speaking the patient she states she has had increased anxiety lately. She was in an argument today and reports she was throwing things. She does not describe specific triggering event. She ishaving suicidal thoughts without a specific plan. She denies homicidal ideations. She endorses chronic auditory and visual hallucinations which are unchanged. She endorses some finger pain as she hitsomething today otherwise denies medical concerns. She denies any other concerns or complaints today. Triage Vitals [03/23/242034] Temp 97.6 ??F (36.4 ??C) Temp src Oral Pulse 79 Resp 16 BP 136/78 SpO2 98 % Physical Exam Vitals and nursing note reviewed. Constitutional: General: She is not in acute distress. Appearance: She is well-developed. Comments: Patient sitting comfortably in bed with her stuffed animal HENT: Head: Atraumatic. Cardiovascular: Rate and Rhythm: Normal rate and regular rhythm. Pulmonary: Effort: Pulmonary effort is normal. No respiratory distress. Breath sounds: Normal breath sounds. No wheezing, rhonchi or rales. Musculoskeletal: Comments: Moves all extremities equally. Right hand is without any bruising, swelling, deformity, or limited range motion of any joint. Diffusely tender throughout 3rd and 4th digits. Skin: General: Skin is warm and dry. Neurological: Mental Status: She is alert. Gait: Gait normal. Psychiatric: Behavior: Behavior normal. Behavior is cooperative. Comments: Limited insight MDM: Crisis evaluation, agitation, suicidal ideations. Reassuring vitals. Low clinical suspicion for organic cause of their symptoms; labs, imaging and further workup not emergently indicated. Patient reports she hit her hand during the evening. Nothing on exam to suggest fracture. After evaluating the patient It is my opinion that the patient does not have the means or intent tocarryout out their plan while in the Emergency Department. The patient also agrees that they can besafe while undergoing evaluation in the ED. The patient will not require a 1-1 plant safety engineer, but instead can be observed up to 3-1 safety watch or in Gamma pod Patient presents today from her senior living with agitation and destructive behavior, suicidal ideations. Today's presentation is consistent with multiple previous presentations. Social work obtained collateral from senior living. It sounds as though she was elevated after being told that she could not have a specific snack. She was elevated and agitated longer than usual, took her p.r.n. Haldol but declined to take her evening medications. She is agreeable to taking her evening medications here. Overall it is not felt that inpatient hospitalization would be indicated. When asked what patient doesto calm her mind and she is feeling angry, she states she does nothing. She plans to go to a program to help her with coping skills. Will plan to reach out to patient's guardian and reassess Jenny Campbell PA-C ED Course as of 03/23/240 Sun Mar 23, 2024 4036 Collateral obtained from senior living and patient's guardian. retirement requests patient sleep overnight in the ED and be reassessed in the morning for a break. It is not felt this would be indicated today as she has taken her evening medications, is behaviorally controlled today, and actually agreeable with the plan for discharge and following up with her new program. She agrees to be safe. Guardian is agreeable with the plan. Encouraged follow-up with this and with her psychiatrist. Patient understands the plan. I spoke with the warehouse shipping supervisor who was able to order the patient's evening Clozaril. Will plan for discharge back home with secure transport via [place]. [DC] ED Course User Index [DC] Neyda Campbell PA-C Clinical Impressions as of 03/23/24 2210 Adjustment disorder with mixed disturbance of emotions and conduct ([facility]C) documented in this encounter Plan of Treatment Not on file documented as of this encounter Visit Diagnoses Diagnosis Adjustment disorder with mixed disturbance of emotions and conduct (HRC)- Primary Adjustment disorder with mixed disturbance of emotions and conduct Suicidal ideation * Triage Assessment Note - Jackeline Luo RN - 03/23/2024 8:31 PM CDT Mode of arrival: [facility] Chief complaint: Crisis evaluation Symptoms/background/relevant history (narrative): The patient was at her senior living when she became violent and trying to engage in self harm behavior. Staff called the police. They placed the patient on a hold and transported her to [facility]. Patient wanded upon arrival per security. documented in this encounter Administered Medications Inactive Administered Medications - up to 3 most recent administrations Medication Order MAR Action Action Date Dose Rate Site cloZAPine (CLOZARIL) tablet 100 mg 100 mg, Oral, NOW, On 03/23/24 at 2200, For 1 dose Given 03/23/2024 10:08 PM CDT 100 mg divalproex (DEPAKOTE ER) 24 hour release tablet 500 mg 500 mg, Oral, NOW, On 03/23/24 at 2130, For 1 dose, Tablet/Capsule should be swallowed whole. HAZARDOUS DRUG Preparation: Single glove Administration: If no touch, no PPE; if handling, single glove Given 03/23/2024 9:32 PM CDT 500 mg gabapentin (NEURONTIN) capsule 100 mg 100 mg, Oral, NOW, On 03/23/24 at 2130, For 1 dose Given 03/23/2024 9:32 PM CDT 100 mg haloperidol (HALDOL) tablet 5 mg 5 mg, Oral, ONCE, On 03/23/24 at 2130, For 1 dose Given 03/23/2024 9:32 PM CDT 5 mg documented in this encounter Active and Recently Administered Medications Times are shown in CDT. Scheduled Medication Order 03/22/2024 03/23/2024 03/24/2024 cloZAPine (CLOZARIL) tablet 100 mg (COMPLETED) 100 mg, Oral, NOW, On 03/23/24 at 2200, For 1 dose 2207 (Given - Provider: Qing Luo RN) divalproex (DEPAKOTE ER) 24 hour release tablet 500 mg (COMPLETED) 500 mg, Oral, NOW, On 03/23/24 at 2130, For 1 dose, Tablet/Capsule should be swallowed whole. HAZARDOUS DRUG Preparation: Single glove Administration: If no touch, no PPE; if handling, single glove 2131 (Given - Provider: Qing uLo RN) gabapentin (NEURONTIN) capsule 100 mg (COMPLETED) 100 mg, Oral, NOW, On 03/23/24 at 2130, For 1 dose 2131 (Given - Provider: Qing Luo RN) haloperidol (HALDOL) tablet 5 mg (COMPLETED) 5 mg, Oral, ONCE, On 03/23/24 at 2130, For 1 dose 2131 (Given - Provider: Qing Luo RN) documented in this encounter Care Teams Repairer Switchgear Relationship Specialty Start Date End Date No Primary/Referring, Phy PCP - General 06/26/22 documented as of this encounter
== END 2024-03-21 21:24 | disposition home or self-care (01) ==
LOC: AMB 03-27 07:11
PROVIDERS: Visit Provider Internal Medicine
DX: R45.851 Suicidal ideations (principal); F91.9 Conduct disorder, unspecified
CPT/HCPCS: A0425; A0427

== ENCOUNTER 2024-03-23 19:29 | Outpatient (CLI) | payer MEDICARE, OTHER, SELFPAY ==
--- OUTSIDE RECORDS SUMMARY | 2024-03-29 19:34 | XMS_ITS | Data Portability ---
Author Name Unknown Address [address] [place] [address] Phone [phone] Organization [place] [facility], [employer] Address [address] [place] [address] Care Team Providers Care Barbering Teacher Name Role Phone PHUONG ROPER Primary Care Provider Assessment Encounter Date Assessment Date Assessment LastModified by Organization Details LastModified Time 10/03/2022 10/03/2022 Patient presents for of ingrown toenail. Based on history, physical exam, and prior treatments, I recommend INSERT TEXT HERE. Discussed treatment plan and instructions with patient. Orders as indicated below. [email or web address] Not available 10/03/2022 14:32:28 02/22/2023 02/22/2023 Patient seen in office today for a diabetic foot exam. Diabetes is well controlled. Abnormal findings include mycotic nails, neuropathy . Patient educated on diabetic foot complications and prevention. Discussed treatment/diagno stic plan and orders with patient as indicated below. [email or web address] Not available 02/23/2023 08:18:04 05/30/2023 05/30/2023 Nails debrided as previously documented. Patient meets criteria for ongoing nail cares and will be continually seen on a routine basis. Of note the patient's [facility] staff is interested in inserts for foot pain (patient does not relate this today), and we will send a form for her guardian to complete at this time. Not available 05/30/2023 12:40:13 08/29/2023 08/29/2023 Nails debrided as previously documented. Patient meets criteria for ongoing nail cares and will be continually seen on a routine basis. Of note the patient's [facility] staff is interested in inserts for foot [...] for Subiomed trial. Off note: Staff's number [phone] [email or web address] Not available 12/19/2023 02:27:43 Plan of [...] Active 2021 Acquired hallux valgus; Original Code: 769658779 Origi nal Codesystem: SNOMED CT Classificati on: Medical Confirm ation Status: Confirmed Not Available [facility] 3 09:05:37 Polyneuropathy due to type 2 diabetes mellitus Active 2021 Polyneuropathy due to type 2 diabetes mellitus; Original Code: [id number] Orig inal Codesystem: SNOMED CT Classificati on: Medical Confirm ation Status: Confirmed Not Available [facility] 3 09:05:37 Callosity Active 2021 Callosity; Original Code: [id number] Origi nal Codesystem: SNOMED CT Classificati on: Medical Confirm ation Status: Confirmed Not Available [facility] 3 09:05:37 Onychomycosis of toenails Active 2021 Onychomycosis of toenails; Original Code: [id number] Orig inal Codesystem: SNOMED CT Classificati on: Medical Confirm ation Status: Confirmed Not Available [facility] 09:05:37 Problem Notes None recorded. Procedures Surgical History Date Name Laterality Status Provider Name and Address Organization Details Recorded Time 12/18/19 24 NAIL/CallusDEBR [facility] 12/18/2023 14:48:32 08/29/[address] Montoya completed Stan Luevano, TOMEKA [address] [place], [address], [facility] 08/29/2023 12:44:39 05/30/[address] Montoya completed Stan Luevano, TOMEKA [address] [place], [address], [facility] 05/30/2023 12:37:45 02/23/[address] Ackerman completed Jigar Carlos, YANELY [address] [facility] [address] 02/23/2023 08:15:42 10/17/20 Routine Foot Care completed Jigar Carlos DPM [address] [place], [address], [facility] 10/17/2022 14:39:47 10/03/[address] Montoya completed Jigar Carlos, YANELY [address] [facility] [address] 10/03/2022 14:34:43 Imaging Results None recorded. Procedure Notes None recorded. Medical Equipment None Reported. Allergies Allergen ID Allergen Name Allergen Category Reaction Reaction Severity Criticality Documentation Date Start Date Code Code System Note Provider Name and Address Organization Details Recorded Time 70 amoxicill in medicatio n Not available Not available Not available 10/03/2022 723 RxNorm Tuyet Danay [facility] 14:05:59 71 Geodon medicatio n Not available Not available Not available 10/03/2022 67844 4 RxNorm Tuyet Danay null, [place] - [facility] 2 14:06:11 72 lithium Not available Not available Not available Not available 10/03/2022 6448 [facility]arm [facility] 2 14:06:21 73 Non-stero idal anti-infl ammatory agent (product) medicatio n Not available Not available Not available 10/03/2022 26951 005 [facility] 2 14:06:34 74 Medicinal product containin g penicilli n and acting as antibacte rial agent (product) medicatio n Not available Not available Not available 10/03/2022 44318 05 [facility] 2 14:06:49 75 pineapple extract food Not available Not available Not available 10/03/2022 66312 74 RxJohanarm Tuyet myers [facility] 2 [...] Updated DateTime 10/17/2022 165.1 cm 50.1 kg/m2 888452.3 g MIGUELINA Wagner - [facility] [...] Diagnosis/Indication Diagnosis SNOMED-CT Code 118 Jigar Carlos [facility] [address] [place] [phone] 10/03/2022 14:20:55 10/03/2022 15:20:36 Ingrowing toenail [id number] Jigar Carlos [facility] [address] [place] [address] 10/17/2022 13:58:33 10/17/2022 15:19:17 Foot callus 724110961 Ingrowing toenail 473009 009 4228 Jigar Carlos [facility] [address] [place] [phone] 02/22/2023 11:57:15 02/23/2023 11:31:39 Ingrowing toenail 101051890 Peripheral neuropathy due to type 2 diabetes mellitus 9480334571906 Onychomycosis 533496355 6893 Stan Luevano, [facility] [employer] Office [address] [place] [phone] 05/30/2023 10:50:45 05/31/2023 09:50:45 Peripheral neuropathy due to type 2 diabetes mellitus 3753548095162 On waiting list for organ transplant 986179515 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 99728863683834 8 Acquired p es planus of right foot 60365965084766 6 Acquired h allux limitus of right great toe 54047110854574 00 Acquired h allux limitus of left great toe 20437179659402 09 Onychomycosis 154016206 9487 [facility], [facility] [address] [place] [phone] 08/29/2023 11:01:11 08/30/2023 15:54:51 Peripheral neuropathy due to type 2 diabetes mellitus 9664342660653 On waiting list for organ transplant 213103323 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 05729353179040 8 Acquired p es planus of right foot 74501822295492 6 Acquired h allux limitus of right great toe 15685090920817 00 Acquired h allux limitus of left great toe 07301605919233 09 Onychomycosis 114745552 39383 Jigar Carlos, [facility] [address] [place] [phone] 12/18/2023 14:16:46 12/21/2023 09:31:46 Peripheral neuropathy due to type 2 diabetes mellitus 3672887713935 On waiting list for organ transplant 348541465 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 11021902497278 8 Acquired p es planus of right foot 12197850154500 6 Acquired h allux limitus of right great toe 73212798110014 00 Acquired h allux limitus of left great toe 01586150332411 09 Onychomycosis 744255927 Foot callus 456610508 Health Concerns Section Related Observation LastModified by Organization Detai ls LastModified Time None Recorded Concern Status LastModified by Organization Details LastModified Time None Recorded Advance Directives Directive None Recorded Payers Encounter Date Sequence Insurance Name Policy Number Policy Xie Covered Member ID Xie Member ID Guarantor Name 12/18/2023 2 MEDICA CHOICE CARE - [facility] (MEDICAID HMO) Elisa Jennings [id number] Elisa Jennings 12/18/2023 1 [place] [employer] Elisa Medranoon [id number] Elisa German Dick 08/29/2023 1 [place] [employer] Elisa M Jennings [id number] Elisa Jennings 08/29/2023 2 MEDICA (MEDICARE SUPPLEMENT) Elisa Jennings [id number] Elisa German Dick 05/30/2023 1 [place] [employer] Elisa M Jennings [id number] Elisa Jennings 05/30/2023 2 MEDICA (MEDICARE SUPPLEMENT) Elisa Jennings [id number] Elisa Jennings 02/22/2023 1 [place] [employer] Elisa Medranoon [id number] Elisa Jennings 02/22/2023 2 MEDICA (MEDICARE SUPPLEMENT) Elisa Jennings [id number] Elisa Jennings 10/17/2022 1 [place] [employer] Elisa Porter Jennings [id number] Elisa Jennings 10/17/2022 2 MEDICA (MEDICARE SUPPLEMENT) Elisa Jennings [id number] Elisa Jennings 10/03/2022 1 [place] [employer] Elisa Porter Jennings [id number] Elisa Jennings 10/03/2022 2 MEDICA (MEDICARE SUPPLEMENT) Elisa Jennings [id number] Elisa Jennings Notes Date Note Type Note Provider Name and Address Organization Details Recorded Time 10/03/2022 text/html HPI Notes: increasing pain in b/l great toes for years. Jigar Carlos DPM [address] [place], [address], [facility] 10/03/2022 14:36:00 10/17/2022 text/html HPI Notes: Post P and A b/l grweat toes. Jigar Carlos DPM [address] [place], [address], [facility] 10/17/2022 14:40:10 02/22/2023 text/html HPI Notes: This Pt. presents for diabetic foot care. THey are a Q9 diabetic with peripheral neuropathy, THick mycotic nails, atrophic skin, palpable pedal pulses, Jigar Carlos, [facility] [address] [place], [address], [facility] - [facility] 02/23/2023 08:18:46 05/30/2023 text/html HPI Notes: Tyler salinas is a 28 year old female new patient who presents with the chief complaint with care staff from the [facility]. Presents today for evaluation of problematic toenails and feet in general. They relate chronic thickening and deformity to their toenails that has not responded to self-trimming, topical cjne-nhf-fidzktq anti-fungal therapy, foot soaks, and other similar [...] further evaluation and treatment options. Stan Luevano, [facility] [address] [place], [address], [facility] 05/30/2023 12:40:21 08/29/2023 text/html HPI Notes: Tyler salinas is a 28 year old female established patient who presents with the chief complaint with care staff from the [facility]. Presents today for evaluation of problematic toenails and feet in general. They relate chronic thickening and deformity to their toenails that has not responded to self-trimming, topical mcjg-ysy-cvxspbr anti-fungal therapy, foot soaks, and other similar [...] and treatment options. Stan Luevano, YANELY [address] [place], [address], [facility] 08/29/2023 12:46:55 12/18/2023 text/html HPI Notes: Tyler salinas is a 28 year old female established patient who presents with the chief complaint with care staff from the [facility]. Presents today for evaluation of problematic toenails and feet in general. They relate chronic thickening and deformity to their toenails that has not responded to self-trimming, topical trra-egu-soijxhj anti-fungal therapy, foot soaks, and other similar [...] and treatment options. Jigar Carlos DPM [address] [place], [address], [facility] 12/19/2023 09:39:49 OBGyn Episode No OBEpisode recorded.
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
--- OUTSIDE RECORDS SUMMARY | 2024-03-29 19:34 | XMS_ITS | Clinical Summary ---
Author Name Unknown Organization [facility] Address [place], [place] [address] Care Team Providers Care Training Assistant Name Role Phone Stephy Coles Primary Care Provider Fatimah Tavares DPM Unavailable Mandie Powell MD Unavailable Finesse Salomon MD Unavailable [phone] Lynne Caban MD Unavailable Cinda Lenz NP Unavailable [phone] Anastasiia Arenas PA-C Unavailable [phone] Allergies Active Allergy Reactions Criticality Noted Date Comments Amoxicillin Hives Medium 11/23/2005 Ziprasidone Ataxia,Muscle Weakness Medium 11/23/2005 L [place] Renal Failure 05/10/2015 Nsaids (Non-Steroidal Anti-Inflammatory Drug) [...] 2 diabetes mellitus without complication, unspecified whether bend sorter insulin use (HC),Peripheral polyneuropathy,Pes planus, unspecified laterality,Equinus [...] 04/29/2018 Type 2 diabetes mellitus without complication [place]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 06/14/2015 Constipation 09/12/2013 Low back pain [...] lithium toxicity Jun 2012, dialysis MWF at [facility] Encounters Date Type Department Care Team Description 2024 Orders Only [facility] Scanner 1 scan: (1-Ord) INCOMING RECORDS-SLEEP STUDY, [facility], 2024 2024 Orders Only [facility] Scanner 1 scan: (1-Ord) INCOMING RECORDS-PFT, [facility], 2024 03/13/[address] [phone] Stephy Coles, Form 03/12/[address] [phone] Stephy Coles, Lab results 03/05/2024 10:30 AM CDT Ancillary Procedure [facility] [address] [place] [address] 03/05/[address] [address] Stephy Coles, Refill Request (Lactulose 15mml) 03/05/2024 Orders Only [facility] [address] [place] [address] Jaclyn Banks PA 1 scan: (1-Ord) EKG-NFLD-03/04/24 03/05/[address] [address] Stephy Coles DO Error-please disregard 03/05/2024 Telephone [facility] [address] [place] [address] Jaclyn Banks Results 03/04/2024 1:10 PM CDT Office Visit [facility] [address] [place] [address] Jaclyn Banks PA Abdominal Pain (With some chest pain and low back pain-also vaginal odor, hurts to urinate-started a few days ago) 03/04/2024 Travel 03/03/2024 10:30 AM CDT Office Visit [facility] [address] [place] [address] Cinda Lenz NP Follow Up (1 month, renal); Medication Management; Immunization/Injecti on (Aranesp) 03/03/2024 Travel 02/29/2024 Telephone [facility] [address] [place] [address] Jaclyn Loja MD Prior Authorization (ARANESP ([id number])) 02/28/2024 Refill [facility] [address] [place] [phone] Stephy Coles DO Refill Request (Lactulose) 02/25/[address] [phone] Stephy Coles DO Form (Diabetic Standard Written Order. Fax back to Byron @ ) 02/25/2024 Orders Only [address] [address] Cinda Lenz NP Lab (Aranesp Orders) 02/05/2024 11:45 AM CDT Office Visit [address] [phone] Stephy Coles DO IUD (removal) 02/05/[address] [phone] Stephy Coles DO Concerns 02/04/[address] [phone] Stephy Coles DO 02/04/2024 Travel 01/28/2024 11:30 AM PRODUCT SUPPORT ANALYST Office Visit [address] [address] Jaclyn Loja MD Follow Up (F/U ll Flank pain on both sides, has appt with Urology coming up) 01/28/2024 Travel 01/25/2024 Refill [facility] [address] [place] [phone] Stephy Coles DO Refill Request (Trulicity) 01/20/2024 Refill [facility] [address] [place] [address] Stephy Coles DO Refill Request (Cyclobenzaprine) 01/16/[address] [phone] Stephy Coles, DO Form 01/15/2024 Orders Only [facility] [address] [address] Levy Langford, PT <No scans attached> 01/09/2024 Orders Only [facility] Scanner 1 scan: (1-Ord) [facility], MODERATE PERISISTENT ASTHMA, UNCOMPLICATED, 01/09/2024 01/08/2024 11:45 AM PRODUCT SUPPORT ANALYST Office Visit [address] [phone] Stephy Coles DO Rectal Problem (Lump on rectum) 01/08/[address] [address] Jaclyn Loja MD Results (Neph) 01/08/[address] [address] Jaclyn Loja Prior Authorization (ARANESP ([id number])/) 01/07/2024 11:00 AM PRODUCT SUPPORT ANALYST Office Visit [address] [address] Jaclyn Loja MD Follow Up (3 MNTH ll HS urine accident, not seeing Urology, mom concerned with increase of incontinence. //Difficulty eating, states nauseous, wondering if kidney related. ) 01/07/[address] [address] Jaclyn Loja MD Prior Authorization (Aranesp) 01/07/2024 Travel from Last 3 Months Immunizations Name Administration Dates Next Due COVID-19 Vaccine Spikevax (M oderna 50mcg/0.5mL) 12YO+ [id number] Formula PF 01/08/2024 DTaP 03/28/2002, 8,1997,07/17,1997 HIB [...] 167 cm (5' 5.75) 10/29/2023 8:45 AM PRODUCT SUPPORT ANALYST Body Mass Index 36.1 10/29/2023 8:45 AM PRODUCT SUPPORT ANALYST Plan of Treatment Upcoming Encounters Date Type Department Care Team (Late st Contact Info) Description 04/09/2024 9:30 AM CDT Office Visit [facility] [address] [address] Cinda Lenz NP [address] [phone] 06/26/2024 1:00 PM CDT Office Visit [facility] [address] [place] [address] Nima Puri MD [address] [place] [address] Health Maintenance Due Date Last Done Comments [...] 08/20/2013, 07/23/2012 Medical Devices Implanted Type Area Packaging Manager Device Identifier Shelf Expiration Date Model / Serial / Lot [facility] [id number] - [id number] Implanted:Qty: 1 on 05/10/2015 by Sandy Miranda MD at [facility] N/A: Uterus 12/25/2020 [facility] [id number] Description:Paragard IUD [facility] [id number]. lot# [id number] Procedures Procedure Name Priority Date/Time Associated Diagnosis Comments SCAN CORRESP-DIAGNOSTICS 2024 12:00 AM CDT [facility]AN [facility]RESP-DIAGNOSTICS 2024 12:00 AM CDT EKG 12 LEAD Routine 03/05/2024 1:00 PM CDT Tachycardia [place] READING EKG - NO CHARGE, COMP ONLY [...] Chronic kidney disease, stage IV (severe) (HC) FURNACE MECHANIC THIN PREP PAP SCREEN IMAGED Routine 02/05/2024 1:44 PM CDT Cervical cancer screening HPV THIN PREP Routine 02/05/2024 1:44 PM CDT Cervical cancer screening SCAN-PULMONARY FUNCTION TEST 01/09/2024 12:00 AM PRODUCT SUPPORT ANALYST URINE CULTURE Routine 01/08/2024 12:50 PM PRODUCT SUPPORT ANALYST Urinary incontinence, unspecified type UA W/ SEDIMENT EXAM REFLEXED PER CRITERIA Routine 01/08/2024 12:50 PM PRODUCT SUPPORT ANALYST Urinary incontinence, unspecified type IRON PLUS IRON BINDING CAP Add On 01/07/2024 12:03 PM PRODUCT SUPPORT ANALYST Chronic kidney disease, stage IV (severe) (HC) Anemia, chronic renal failure, unspecified stage FERRITIN Add On 01/07/2024 12:03 PM PRODUCT SUPPORT ANALYST Anemia of unknown etiology LC ERYTHROPOIETIN (EPO), SERUM Routine 01/07/2024 12:03 PM PRODUCT SUPPORT ANALYST Chronic kidney disease, stage IV (severe) (HC) VITAMIN D 25 (DEFICIENCY) Routine 01/07/2024 12:03 PM PRODUCT SUPPORT ANALYST Chronic kidney disease, stage IV (severe) (HC) PTH,INTACT Routine 01/07/2024 12:03 PM PRODUCT SUPPORT ANALYST Chronic kidney disease, stage IV (severe) (HC) PHOSPHORUS Routine 01/07/2024 12:03 PM PRODUCT SUPPORT ANALYST Chronic kidney disease, stage IV (severe) (HC) HEMOGLOBIN Routine 01/07/2024 12:03 PM PRODUCT SUPPORT ANALYST Chronic kidney disease, stage IV (severe) (HC) BASIC METABOLIC PANEL Routine 01/07/2024 12:03 PM PRODUCT SUPPORT ANALYST Chronic kidney disease, stage IV (severe) (HC) ALBUMIN Routine 01/07/2024 12:03 PM PRODUCT SUPPORT ANALYST Chronic kidney disease, stage IV (severe) (HC) ANTI HIV 1/2 Routine 10/01/2023 3:18 PM PRODUCT SUPPORT ANALYST Screen for STD (sexually transmitted disease) LC [...] PM CDT) Jaclyn TAI EKG ORD * [place] READING EKG - NO CHARGE, COMP ONLY [...] None Seen /HPF 03/04/2024 2:24 PM CDT [facility] WBC None Seen 0-2, 3-5, None Seen /HPF 03/04/2024 2:24 PM CDT [facility] BACTERIA None Seen None Seen, Rare, Few Bacteria/ HPF 03/04/2024 2:24 PM CDT [facility] EPITHELIAL CELLS Few None Seen, Few Epi/HPF 03/04/2024 2:24 PM CDT [facility] Urine URINE SPECIMEN / Unknown Non-Blood / Unknown 03/04/2024 2:12 PM CDT 03/04/2024 2:12 PM CDT Jaclyn TAI URINE [facility] [address] [place] [address], [place] [phone] * (ABNORMAL) UA W/ SEDIMENT EXAM REFLEXED PER CRITERIA (03/04/2024 2:12 PM CDT) Only the most recent of2 resultswithin the time period is included. COLOR Yellow Yellow Color 03/04/2024 2:24 PM CDT [facility] CLARITY Clear Clear Clarity 03/04/2024 2:24 PM CDT [facility] SPECIFIC GRAVITY,URINE 1.010 1.010, 1.015, 1.020, 1.025 03/04/2024 2:24 PM CDT [facility] PH,URINE 6.5 6.0, 7.0, 8.0, 5.5, 6.5, 7.5, 8.5 03/04/2024 2:24 PM CDT [facility] UROBILINOGEN, QUALITATIVE Normal Normal EU/dl 03/04/2024 2:24 PM CDT [facility] PROTEIN, URINE 100(A) Negative mg/dL 03/04/2024 2:24 PM CDT [facility] GLUCOSE, URINE Negative Negative mg/dL 03/04/2024 2:24 PM CDT [facility] KETONES,URINE Negative Negative mg/dL 03/04/2024 2:24 PM CDT [facility] BILIRUBIN,URI NE Negative Negative 03/04/2024 2:24 PM CDT [facility] OCCULT BLOOD,URINE Trace(A) Negative 03/04/2024 2:24 PM CDT [facility] NITRITE Negative Negative 03/04/2024 2:24 PM CDT [facility] LEUKOCYTE ESTERASE Negative Negative 03/04/2024 2:24 PM CDT [facility] Urine URINE SPECIMEN / Unknown Non-Blood / Unknown 03/04/2024 2:12 PM CDT 03/04/2024 2:12 PM CDT Jaclyn TAI URINE [facility] [address] [place] [address], [place] [phone] * CWS PATH REVIEW HEMATOLOGY (03/04/2024 2:11 PM CDT) PATH COMMENT Comment 03/08/2024 8:24 AM CDT [facility] TRAL LABORAT[facility] Comment: Recommend evaluation for iron deficiency. Acanthocytes present, may be associated with renal and/or liver insuffiencey. Reviewed by Betty Mejia MT, MS ([facility]) on 03/07/2024 Blood BLOOD SPECIMEN / Unknown Capillary / Unknown 03/04/2024 2:11 PM CDT 03/04/2024 2:11 PM CDT Jaclyn TAI LABORATORY [facility]ORY[facility]AL LABORATORY [address] [address], [place] * (ABNORMAL) CBC WITH AUTO DIFFERENTIAL (03/04/2024 2:11 PM CDT) WHITE BLOOD COUNT 7.5 4.5 - 11.0 thou/cu mm 03/04/2024 10:10 PM CDT [facility] TRAL [facility] RED BLOOD COUNT 3.25(L) 4.00 - 5.20 mil/cu mm 03/04/2024 10:10 PM CDT [facility] HEMOGLOBIN 10.0(L) 12.0 - 16.0 g/dL 03/04/2024 10:10 PM CDT [facility] HEMATOCRIT 31.0(L) 33.0 - 51.0 % 03/04/2024 10:10 PM CDT [facility] MCV 95 80 - 100 fL 03/04/2024 10:10 PM CDT [facility] MCH 30.8 26.0 - 34.0 pg 03/04/2024 10:10 PM CDT [facility] MCHC 32.3 32.0 - 36.0 g/dL 03/04/2024 10:10 PM CDT [facility] RDW 17.7(H) 11.5 - 15.5 % 03/04/2024 10:10 PM CDT [facility] PLATELET COUNT 148 140 - 440 thou/cu mm 03/04/2024 10:10 PM CDT [facility] MPV 10.9 6.5 - 11.0 fL 03/04/2024 10:10 PM CDT [facility] NRBC 0.0 % 03/04/2024 10:10 PM CDT [facility] LABORAT[facility] TRAL LAB[facility]AT[facility] ABS NRBC 0.0 thou /cu mm 03/04/2024 10:10 PM CDT [facility] TR[facility] % NEUT 47.6 % 03/04/2024 10:10 PM CDT [facility] % LYMPH 32.7 % 03/04/2024 10:10 PM CDT [facility] % MONO 14.1 % 03/04/2024 10:10 PM CDT [facility] % EOS 3.6 % 03/04/2024 10:10 PM CDT [facility] % BASO 0.5 % 03/04/2024 10:10 PM CDT [facility] % IMMATURE GRAN (METAS,MYELOS,KS OS) 1.5 % 03/04/2024 10:10 PM CDT [facility] ABSOLUTE NEUTROPHILS 3.6 1.7 - 7.0 thou/cu mm 03/04/2024 10:10 PM CDT [facility] ABSOLUTE LYMPHOCYTES 2.5 0.9 - 2.9 thou/cu mm 03/04/2024 10:10 PM CDT [facility] TR[facility] ABSOLUTE MONOCYTES 1.1(H) <0.9 thou/cu mm 03/04/2024 10:10 PM CDT [facility] ABSOLUTE EOSINOPHILS 0.3 <0.5 thou/cu mm 03/04/2024 10:10 PM CDT [facility] ABSOLUTE BASOPHILS 0.0 <0.3 thou/cu mm 03/04/2024 10:10 PM CDT [facility] ABSOLUTE IMMATURE GRANULOCYTES(MET ,MYELOS,PROS) 0.1 <0.3 thou/cu mm 03/04/2024 10:10 PM CDT [facility] TRA LABORATORY Blood BLOOD SPECIMEN / Unknown Capillary / Unknown 03/04/2024 2:11 PM CDT 03/04/2024 2:11 PM CDT Jaclyn TAI HEMATOLOGY [facility] [address] [place] [address], [address] [address], * (ABNORMAL) RED CELL MORPHOLOGY (03/04/2024 2:11 PM CDT) ACANTHOCYTES Many 03/04/2024 10:10 PM CDT [facility] ELLIPTOCYTES Moderate 03/04/2024 10:10 PM CDT [facility] SCHISTOCYTES Few 03/04/2024 10:10 PM CDT [facility] RBC COMMENT Present(A) RBC morphology appears normal, RBC morphology within normal limits for newborns. 03/04/2024 10:10 PM CDT [facility] Blood BLOOD SPECIMEN / Unknown Capillary / Unknown 03/04/2024 2:11 PM CDT 03/04/2024 2:11 PM CDT Jaclyn TAI HEMATOLOGY Performing Organization Address [facility]/ZIP Co de Phone Number [facility] [address] [place] [address], [place] * PLATELET ESTIMATE (03/04/2024 2:11 PM CDT) PLATELET ESTIMATE Adequate Adequate, No estimate 03/04/2024 10:10 PM CDT [facility] Blood BLOOD SPECIMEN / Unknown Capillary / Unknown 03/04/2024 2:11 PM CDT 03/04/2024 2:11 PM CDT Jaclyn TAI HEMATOLOGY Performing Organization Address [facility] Co de Phone Number [facility] [address] [place] [address], [place] * (ABNORMAL) C-REACTIVE PROTEIN (03/04/2024 2:11 PM CDT) C-REACTIVE PROTEIN 0.7(H) <0.5 mg/dL 03/04/2024 9:36 PM CDT [facility] Blood BLOOD SPECIMEN / Unknown Venipuncture / Unknown 03/04/2024 2:11 PM CDT 03/04/2024 2:12 PM CDT Jaclyn TAI CHEMISTRY Performing Organization Address [facility] Co de Phone Number [facility] [address] [place] [address], [place] * (ABNORMAL) LIPASE (03/04/2024 2:11 PM CDT) LIPASE 71.4(H) 13.0 - 60.0 IU/L 03/04/2024 10:01 PM CDT [facility] Blood BLOOD SPECIMEN / Unknown Venipuncture / Unknown 03/04/2024 2:11 PM CDT 03/04/2024 2:12 PM CDT Jaclyn TAI [facility] [address] [place] [address], * (ABNORMAL) COMP METABOLIC PANEL (03/04/2024 2:11 PM CDT) SODIUM 140 136 - 145 mmol/L 03/04/2024 9:36 PM CDT [facility] POTASSIUM 4.5 3.5 - 5.1 mmol/L 03/04/2024 9:36 PM CDT [facility] CHLORIDE 102 98 - 107 mmol/L 03/04/2024 9:36 PM CDT [facility] CO2,TOTAL 25 22 - 29 mmol/L 03/04/2024 9:36 PM CDT [facility] ANION GAP 13 5 - 18 03/04/2024 9:36 PM CDT [facility] GLUCOSE 108(H) 70 - 99 mg/dL 03/04/2024 9:36 PM CDT [facility] CALCIUM 9.5 8.6 - 10.0 mg/dL 03/04/2024 9:36 PM CDT [facility] BUN 41(H) 6 - 20 mg/dL 03/04/2024 9:36 PM T [facility] CREATININE 3.02(H) 0.50 - 0.90 mg/dL 03/04/2024 9:36 PM T [facility] BUN/CREAT RATIO 14 10 - 20 9:36 PM CDT [facility] eGFR 21(L) >90 mL/min/1.7 3m2 03/04/2024 9:36 PM T [facility] Comment:As of 2022, eG FR is calculated by the CKD-EPI creatinine equation without race adjustment. ??eGFR can be influenced by muscle mass, exercise, and diet. ??The reported eGFR is an estimation only and is only applicable if the renal function is stable. ALBUMIN 3.7(L) 4.0 - 4.9 g/dL 03/04/2024 9:36 PM CDT [facility] PROTEIN,TOTAL 6.9 6.0 - 8.0 g/dL 03/04/2024 9:36 PM CDT [facility] BILIRUBIN,TOTAL 0.4 0.0 - 1.2 mg/dL 03/04/2024 9:36 PM CDT [facility] ALK PHOSPHATASE 170(H) 35 - 104 IU/L 03/04/2024 9:36 PM CDT [facility] ALT (SGPT) 34 10 - 35 IU/L 03/04/2024 9:36 PM CDT [facility] AST (SGOT) 51(H) 10 - 35 IU/L 03/04/2024 9:36 PM CDT [facility] Blood BLOOD SPECIMEN / Unknown Venipuncture / Unknown 03/04/2024 2:11 PM CDT 03/04/2024 2:12 PM CDT Jaclyn TAI CHEMISTRY [facility] [address] * (ABNORMAL) HEMOGLOBIN (03/03/2024 10:46 AM CDT) Only the most recent of2 resultswithin the time period is included. HEMOGLOBIN 9.6(L) 12.0 - 16.0 g/dL 03/03/2024 10:[address] [facility] MCV 97 80 - 100 fL 03/03/2024 10:[address] [facility] Blood BLOOD SPECIMEN / Unknown Butterfly / Unknown 03/03/2024 10:46 AM CDT 03/03/2024 10:46 AM CDT Cinda Lenz NP HEMATOLOGY [facility] [address] [place] [address] * (ABNORMAL) BASIC METABOLIC PANEL (03/03/2024 10:46 AM CDT) Only the most recent of2 resultswithin the time period is included. SODIUM 140 136 - 145 mmol/L 03/03/2024 11:[address] [facility] POTASSIUM 4.4 3.5 - 5.1 mmol/L 03/03/2024 11:[address] [facility] CHLORIDE 104 98 - 107 mmol/L 03/03/2024 11:[address] [facility] CO2,TOTAL 25 22 - 29 mmol/L 03/03/2024 11:[address] [facility] ANION GAP 11 5 - 18 03/03/2024 11:[address] [facility] GLUCOSE 110(H) 70 - 99 mg/dL 03/03/2024 11:[address] [facility] CALCIUM 9.7 8.6 - 10.0 mg/dL 03/03/2024 11:[address] [facility] BUN 43(H) 6 - 20 mg/dL 03/03/2024 11:[address] [facility] CREATININE 2.99(H) 0.50 - 0.90 mg/dL 03/03/2024 11:[address] [facility] BUN/CREAT RATIO 14 10 - 20 11:[address] [facility] eGFR 21(L) >90 mL/min/1.7 3m2 03/03/2024 11:[address] [facility] Comment:As of 2022, eG FR is calculated by the CKD-EPI creatinine equation without race adjustment. ??eGFR can be influenced by muscle mass, exercise, and diet. ??The reported eGFR is an estimation only and is only applicable if the renal function is stable. Blood BLOOD SPECIMEN / Unknown Butterfly / Unknown 03/03/2024 10:46 AM CDT 03/03/2024 10:46 AM CDT Cinda Lenz NP CHEMISTRY [facility] [address] [place] [address] * FURNACE MECHANIC THIN PREP PAP SCREEN IMAGED (02/05/2024 1:44 PM CDT) Case Report Gynecologic Cytology Report ? Case: [id number] ? Authorizing Provider: ??Stephy Coles, DO ? Collected: ? 02/05/2024 1344 ? Ordering Location: ? [email or web address] ?Received: ?02/05/2024 1345 ? Clinic ? First Screen: ?Lisette Parker ? Specimen: ?FURNACE MECHANIC ThinPrep Vial Screening, Cervical ? 02/13/2024 1:51 PM CDT [facility]-C ENTRAL LABORATORY INTERPRETATION/ RESULT NEGATIVE FOR INTRAEPITHELIAL LESION OR MALIGNANCY (NIL) (none) 02/13/2024 1:51 PM CDT [facility]-C ENTRAL LABORATORY IMEN ADEQUACY Satisfactory for evaluation No endocervical component seen 02/13/2024 1:51 PM CDT [facility] LABORAT[facility] HPV REQUEST HPV and PAP 02/13/2024 1:51 PM CDT [facility] Date of LMP unknown 02/13/2024 1:51 PM CDT [facility] Last Pap Date never 02/13/2024 1:51 PM CDT [facility] Last Pap Result First Pap/Unknown 1:51 PM CDT [facility] Abnormal Pap or [place] Bx in last 5 years No 02/13/2024 1:51 PM CDT [facility] Menstrual Status Hormonally Suppressed 02/13/2024 1:51 PM CDT [facility] [place] Bx Done Today No 02/13/2024 1:51 PM CDT [facility] Additional Information None given 02/13/2024 1:51 PM CDT [facility] Comment: Cytology is screened at [facility] - [address], [place] [address] and [facility] - [address] [place] [address] and [facility] - [address] [place] [address] Interpreted at [facility] - [address], [place] [address] Automated Review Successful 02/13/2024 1:51 PM CDT [facility] Comment:Specimen processed s uccessfully by automated furniture detailer device, Thin[employer] Imaging System, [employer] ANCILLARY TESTING FURNACE MECHANIC HPV Ordered, Please see separate report 02/13/2024 1:51 PM CDT [facility] Note The pap test is a [...] and malignant lesions. 02/13/2024 1:51 PM CDT [facility]- ENTRAL LABORATORY Other (Cervical) Non-Blood / Unknown 02/05/2024 1:44 PM CDT 02/05/2024 1:45 PM CDT Stephy Coles DO PATHOLOGY/CYTOLOGY Performing Organization Address [facility] Co de Phone Number [facility] [address] [place] [address], * HPV HIGH RISK (02/05/2024 1:44 PM CDT) TYPE 16 Negative Negative 02/08/2024 11:32 AM CDT [facility] TYPE 18 Negative Negative 02/08/2024 11:32 AM CDT [facility] OTHER HIGH RISK TYPES Negative Negative 02/08/2024 11:32 AM CDT [facility] Other (Cervical) Non-Blood / Unknown 02/05/2024 1:44 PM CDT 02/06/2024 9:42 AM CDT Narrative [facility] - 02/08/2024 11:32 AM CDT HPV types 16, 18, 31, 33, 35, 39, 45, 51, 52, 56, 58, 59, 66 and 68 DNA were undetectable or below the pre-set threshold. Methodology: Alanis Luciano 4800 HPV Test Stephy Coles DO MICROBIOLOGY Performing Organization Address [facility] Co de Phone Number [facility] [address] [place] [address], * SCAN-PULMONARY FUNCTION TEST (01/09/2024 12:00 AM PRODUCT SUPPORT ANALYST) Scanner OTHER * URINE CULTURE (01/08/2024 12:50 PM PRODUCT SUPPORT ANALYST) CULTURE <10,000 CFU/mL multiple organisms 01/11/2024 1:08 PM PRODUCT SUPPORT ANALYST [facility] Urine URINE SPECIMEN / Unknown Non-Blood / Unknown 01/08/2024 12:50 PM PRODUCT SUPPORT ANALYST 01/08/2024 12:50 PM PRODUCT SUPPORT ANALYST Stephy Coles DO MICROBIOLOGY [facility] [address] [place] [address], [place] * (ABNORMAL) LC ERYTHROPOIETIN (EPO), SERUM (01/07/2024 12:03 PM PRODUCT SUPPORT ANALYST) Erythropoietin 38.2(H) 2.6 - 18.5 mIU/mL 01/11/2024 7:15 AM PRODUCT SUPPORT ANALYST [facility] ([facility]) Comment: Dogecoin DxI 800 Immunoassay System Values obtained with different assay methods or kits cannot be used interchangeably. Results cannot be interpreted as absolute evidence of the presence or absence of malignant disease. Blood BLOOD SPECIMEN / Unknown Butterfly / Unknown 01/07/2024 12:03 PM PRODUCT SUPPORT ANALYST 01/07/2024 12:03 PM PRODUCT SUPPORT ANALYST Narrative [facility] ([facility]) - 01/11/2024 7:15 AM PRODUCT SUPPORT ANALYST Performed at: ??[address] - [address] ??[id number] Trash Collector: Manuel Quinn MD, Phone: ??[phone] Jaclyn Loja MD LABORATORY [facility] ([facility]) [address] [place], [place] [id number], * VITAMIN D 25 (DEFICIENCY) (01/07/2024 12:03 PM PRODUCT SUPPORT ANALYST) VITAMIN D TOTAL 47.1 20.0 - 80.0 ng/mL 01/07/2024 8:44 PM PRODUCT SUPPORT ANALYST [facility] Blood BLOOD SPECIMEN / Unknown Butterfly / Unknown 01/07/2024 12:03 PM PRODUCT SUPPORT ANALYST 01/07/2024 12:03 PM PRODUCT SUPPORT ANALYST Narrative [facility] - 01/07/2024 8:44 PM PRODUCT SUPPORT ANALYST ? Vitamin D Status Deficiency: ? <20 ng/mL Insufficiency: ?20-29 ng/mL Sufficiency: ?30-80 ng/mL Possible Toxicity: ??>80 ng/mL Based on [place] of Medicine recommendations Biotin supplements may cause clinically significant interference for this test assay. ??If interference is suspected, it is strongly recommended that biotin is discontinued for at least one week prior to retesting. Jaclyn Loja MD SEND OUTS Performing Organization Address [facility] Co de Phone Number [facility] [address] [place] [phone], * IRON PLUS IRON BINDING CAP (01/07/2024 12:03 PM PRODUCT SUPPORT ANALYST) IRON 81 37 - 145 ug/dL 01/09/2024 8:11 PM PRODUCT SUPPORT ANALYST [facility] UIBC (UNSATURATED) 229 112 - 347 ug/dL 01/09/2024 8:11 PM PRODUCT SUPPORT ANALYST [facility] IRON BINDING CAPACITY 310 250 - 400 ug/dL 01/09/2024 8:11 PM PRODUCT SUPPORT ANALYST [facility] IRON,% SATURATION 26 14 - 50 % 01/09/2024 8:11 PM PRODUCT SUPPORT ANALYST [facility] Blood BLOOD SPECIMEN / Unknown Butterfly / Unknown 01/07/2024 12:03 PM PRODUCT SUPPORT ANALYST 01/07/2024 12:03 PM PRODUCT SUPPORT ANALYST Jaclyn Loja MD CHEMISTRY Performing Organization Address [facility] Co de Phone Number [facility] [address] [place] [phone], [place] * (ABNORMAL) PHOSPHORUS (01/07/2024 12:03 PM PRODUCT SUPPORT ANALYST) PHOSPHORUS 4.7(H) 2.5 - 4.5 mg/dL 01/07/2024 2:33 [address] A[address]LYST [facility] Blood BLOOD SPECIMEN / Unknown Butterfly / Unknown 01/07/2024 12:03 PM PRODUCT SUPPORT ANALYST 01/07/2024 12:03 PM PRODUCT SUPPORT ANALYST Jaclyn Loja MD CHEMISTRY Performing Organization Address City/[facility]/ZIP Co de Phone Number [address] [address] * PTH,INTACT (01/07/2024 12:03 PM PRODUCT SUPPORT ANALYST) CALCIUM 9.4 8.6 - 10.0 mg/dL 01/07/2024 8:44 PM PRODUCT SUPPORT ANALYST [facility] PTH,INTACT 26.4 15.0 - 69.0 pg/mL 01/07/2024 8:44 PM PRODUCT SUPPORT ANALYST [facility] Blood BLOOD SPECIMEN / Unknown Butterfly / Unknown 01/07/2024 12:03 PM PRODUCT SUPPORT ANALYST 01/07/2024 12:03 PM PRODUCT SUPPORT ANALYST Jaclyn Loja MD SEND OUTS Performing Organization Address [facility] Co de Phone Number [facility] [address] [place] [address], * (ABNORMAL) FERRITIN (01/07/2024 12:03 PM PRODUCT SUPPORT ANALYST) FERRITIN 361.0(H) 15.0 - 150.0 ng/mL 01/08/2024 11:05 PM PRODUCT SUPPORT ANALYST [facility] Blood BLOOD SPECIMEN / Unknown Butterfly / Unknown 01/07/2024 12:03 PM PRODUCT SUPPORT ANALYST 01/07/2024 12:03 PM PRODUCT SUPPORT ANALYST Stephy Coles DO CHEMISTRY Performing Organization Address [facility]/ZIP Co de Phone Number [facility] [address] [place] [phone], [place] * (ABNORMAL) ALBUMIN (01/07/2024 12:03 PM PRODUCT SUPPORT ANALYST) ALBUMIN 3.7(L) 4.0 - 4.9 g/dL 01/07/2024 2:33 [address] A[address]LYST [facility] Blood BLOOD SPECIMEN / Unknown Butterfly / Unknown 01/07/2024 12:03 PM PRODUCT SUPPORT ANALYST 01/07/2024 12:03 PM PRODUCT SUPPORT ANALYST Jaclyn Loja MD CHEMISTRY [address] [id number] * ANTI HIV 1/2 (10/01/2023 3:18 PM PRODUCT SUPPORT ANALYST) HIV-1/HIV-2 SCREEN Non-Reacti ve Non-Reacti ve 10/01/2023 9:00 PM PRODUCT SUPPORT ANALYST [facility] Comment:HIV-1 p24 and HIV-1/ HIV-2 Ab Not Detected. Blood BLOOD SPECIMEN / Unknown Butterfly / Unknown 10/01/2023 3:18 PM PRODUCT SUPPORT ANALYST 10/01/2023 3:19 PM PRODUCT SUPPORT ANALYST Stephy Coles DO SEND OUTS Performing Organization Address City/[facility]/ZIP Co de Phone Number [facility] [address] [place] [address], * LC HCV ANTIBODY RFX TO QUANT PCR (05/25/2023 2:07 PM CDT) HCV Ab Non Reactive Non Reactive 05/29/2023 12:[address] [facility] Blood BLOOD SPECIMEN / Unknown Butterfly / Unknown 05/25/2023 2:07 PM CDT 05/25/2023 2:07 PM CDT Narrative [facility] ([facility]) - 05/29/2023 12:07 PM CDT Performed at: ??[address] - [address] ??[id number] Trash Collector: Dickson Amado MD, Phone: ??[phone] Stephy Coles DO LABORATORY [facility] ([facility]) [address] [place] [address], from Last 3 Months or Most Recently Relevant to Health Maintenance Advance Directives * Full Code (Latest Code Status on File) Date Activated Date Inactivated Comments 06/02/2012 4:20 PM 06/04/2012 5:18 PM * Full Code Date Activated Date Inactivated Comments 11/23/2005 3:16 PM 12/07/2005 3:11 PM Care Teams Training Assistant Relationship Specialty [place] [address] [place] [address] PCP - General Family Practice 06/22/21 Fatimah Tavares DPM [address] [place], [place] [address] Surgery - Podiatric 06/22/21 Mandie Powell MD [address] [place], [place] [address] Dermatology 06/22/21 Finesse Salomon MD [address] [place], [place] [address] Surgery - Ophthalmology 06/22/21 Lynne Caban MD [address] [facility] [place] Psychiatry 09/23/21 Cinda Lenz, NOCTURNIST PHYSICIAN [address] [phone] Nephrology Nurse Practitioner - Adult 07/04/23 nAastasiia Arenas, CRISTOBALC [address] [place] [address] Physician New Car Make Ready Mechanic 07/25/23
--- OUTSIDE RECORDS SUMMARY | 2024-03-29 19:35 | XMS_ITS | Encounter Summary ---
Author Name Unknown Organization [facility] Address [address] [address] Care Team Providers Care Produce Manager Name Role Phone No Primary/Referring, Phy Primary Care Provider Unavailable Reason for Visit * Reason Comments CRISIS EVALUATION--ED Encounter Details Date Type Department Care Team (Late st Contact Info) Description 03/23/2024 8:22 PM CDT - 03/24/2024 12:58 AM CDT Emergency [facility] Emergency [facility] [address] [place] [address] Neyda Cmapbell PA-C [address] [place], [place] [phone] Adjustment disorder with mixed disturbance of emotions [...] finger, likely a bruise. You may use svdu-izr-frndzod medications for this. You may apply ice for 20 minutes multiple times daily for the next 2-3 days ifyou desire. Please follow-up with your outpatient providers including your psychiatrist if you feel you need any medication changes. Today you were given your evening gabapentin, Depakote, Clozaril, along with Haldol. * Attachments The following attachments cannot be sent through Care Everywhere. * Adjustment Disorder (Kazakh) documented in this encounter Medications at Time [...] pain + indigestion. Maximum 10 tablets/24 hours. Wwupmwg-Xectqtiakx-O enthol (VICKS VAPORUB EX) Apply topically underneath [...] by mouth daily at bedtime. nystatin (MYCOSTATIN) 509733 UNIT/GM cream Apply topically two times daily [...] encounter Consult Notes * Summer Ambrose MSW, HOP WEIGHER - 03/23/2024 9:13 PM CDTAssociated Order(s): ED SOCIAL WORK CONSULT [facility] Emergency Department Social Work Crisis Assessment Current and Past Diagnoses: Mood Disorder (depression, bipolar), Other (see comments) (autism spectrum) Narrative: The patient is a 29 y.o. female who comes to the ED with medics. Per triage: Mode of arrival: [facility] Chief complaint: Crisis evaluation Symptoms/background/relevant history (narrative): The patient was at her custodial when she became violent and trying to engage in self harm behavior. Staff called the police. They placed the patient on a hold and transported her to [facility]. Patient wanded upon arrival per security. RASHAD, NICOLE, and nurse assessed pt in g-pod. Pt is here w/a stuffed animal. She reports she doesn't know what led to her dysregulation today but say she does not feel safe at her custodial. She says she believes she will harm herself at the custodial. When asked what the [facility], in terms [...] reports she does have an appt at [facility] planned where she will start [...] collateral (include names and phone numbers) KIMBERLY (Skilled Nursing, ) Kimberly reports that pt started escalating [...] pt and consulting w/provider, SW called the custodial back and spoke w/a separate staff. They stated pt can return home but would not be attending her skills building appt as, whenever she goes to the hospital, she is ground for 2 days. Staff states they cannot picker feeder pt but sheis able to return home [...] or friends Family History: [place] Living Situation: senior living Pt is the only resident who lives in the custodial ([facility]) Legal Issues (include comments regarding probation, incarcerations, etc): N/A Employment/Income: Pt is not employed. Mental Health Care: Strip Polisher: Laura Pride [facility], ([facility]) Chris Sapp [phone] (-[facility]) Commitment History: [facility], 2021 Community Providers: Dr Panda, [...] the ED following an outburst at her custodial that resulted in verbal threats and property destruction. Pt is experiencing baseline thoughts of self-harm but was able to identify protective factors, including upcoming appts for skill building to manage emotional regulation.Collaterals agree pt is at baseline and that they have behavioral management plans at the custodial related to hospital visits and dysregulation. Her guardian would like her outpatient psychiatrist to manage any medication changes. Collateral agrees that the pt is not an immediate danger to self or others and would benefit from community resources vs inpatient hospitalization. Pt does not meet criteria for an emergency 72 hour hold and will be d/c to her custodial where she has staff support. Suicide Risk: Plan: Patient will be discharged back to custodial. Discussed with: STEPH Cazares PA-C, MANN 03/23/2024, 10:12 PM documented in this encounter ED Notes * Triny Marte RN - 03/24/2024 12:55 AM CDT [facility] ED Nursing Discharge Note Patient discharged: [...] Campbell PA-C - 03/23/2024 8:39 PM CDT [facility] Emergency Medicine Visit Note Chief Complaint: CRISIS EVALUATION--ED HPI Elisa Jennings is a 29 y.o. female on chart review with a history of episodic mood disorder, intermittent explosive disorder, cluster B personality disorder, autism spectrum disorder, borderline intellectual functioning, who presents with medics from her custodial for crisis evaluation. Per medic report, patient became elevated, throwing things in the custodial, trying to engage in self-harmbehavior. Upon my [...] The patient will not require a 1-1 aviation safety technician, but instead can be observed up to 3-1 safety watch or in Gamma pod Patient presents today from her custodial with agitation and destructive behavior, suicidal ideations. Today's presentation is consistent with multiple previous presentations. Social work obtained collateral from custodial. It sounds as though she was elevated [...] as of 03/23/240 Sun Mar 23, 2024 0839 Collateral obtained from custodial and patient's guardian. senior living requests patient sleep overnight in the ED [...] the plan. I spoke with the warehouse supervisor 3rd shift who was able to order the patient's evening Clozaril. Will plan for discharge back home with secure transport via [facility]. [DC] ED Course User Index [DC] Neyda [...] 03/23/2024 8:31 PM CDT Mode of arrival: [facility] Chief complaint: Crisis evaluation Symptoms/background/relevant history (narrative): The patient was at her custodial when she became violent and trying to engage in self harm behavior. Staff called the police. They placed the patient on a hold and transported her to [facility]. Patient wanded upon arrival per security. documented [...] single glove 2131 (Given - Provider: Qing Luo RN) gabapentin (NEURONTIN) capsule 100 mg (COMPLETED) 100 mg, Oral, NOW, On 03/23/24 at 2130, For 1 dose 2131 (Given - Provider: Qing Luo RN) haloperidol (HALDOL) tablet 5 mg (COMPLETED) 5 mg, Oral, ONCE, On 03/23/24 at 2130, For 1 dose 2131 (Given - Provider: Qing Luo RN) documented in this encounter Care Teams Produce Manager Relationship Specialty Start Date End Date No Primary/Referring, Phy PCP - General 06/26/22 documented as of this encounter
--- OUTSIDE RECORDS SUMMARY | 2024-03-29 19:35 | XMS_ITS | Encounter Summary ---
Author Name Unknown Organization [facility] Address [address], [place] [address] Care Team Providers Care Wood Heel Finisher Name Role Phone No Primary/Referring, Phy Primary Care Provider Unavailable Reason for Visit * Reason Comments CRISIS EVALUATION--ED Encounter Details Date Type Department Care Team (Late st Contact Info) Description 03/21/2024 10:19 PM CDT - 03/22/2024 12:21 AM CDT Emergency [facility] Emergency Dept [address] [place], [place] [phone] Jose Boles MD [address] [place], [place] [phone] Adjustment disorder with depressed mood ([facility]) (Primary [...] pain + indigestion. Maximum 10 tablets/24 hours. Xlynzul-Ttxawywvwc-G enthol (VICKS VAPORUB EX) Apply topically underneath [...] by mouth daily at bedtime. nystatin (MYCOSTATIN) [id number] UNIT/GM cream Apply topically two times daily [...] Felipe RN - 03/22/2024 12:19 AM CDT [facility] ED Nursing Discharge Note Arrival Information: Patient arrived: Ambulance Patient escorted by: EMS/Ambulance Discharge Information: Patient discharged: Home Patient accompanied by: Accompanied By: Other ([place]) Transport mode: Mode: Other (comment) ([place]) Discharge instructions given and explained to patient: Patient appropriately dressed for weather: Yes Transportation arranged: Yes exchange floor manager/social sciences research scientist consulted prior to discharge: Yes LDA in [...] will be here within the hour to pickling solution maker patient. plastics worker called and confirmed nursing home staff will be available for intake of patient. * Sri Ramos MSW, COOPER APPRENTICE - 03/21/2024 10:39 PM CDT [facility] Emergency Department Social Work Brief Assessment Current [...] friends Family History: Not applicable Living Situation: long-term Mental Health Care: Pt reports she has [...] 03/21/2024 10:26 PM CDT Mode of arrival: [facility] EMS Chief complaint: crisis evaluation Symptoms/background/relevant history (narrative): The patients nursing home called 911 today. The patient was [...] security. documented in this encounter Care Teams Wood Heel Finisher Relationship Specialty Start Date End Date No Primary/Referring, Phy PCP - General 06/26/22 documented as of this encounter
--- OUTSIDE RECORDS SUMMARY | 2024-03-29 19:35 | XMS_ITS | Encounter Summary ---
Author Name Unknown Organization [facility] Address [address] [address] Care Team Providers Care Frame Operator Name Role Phone No Primary/Referring, Phy Primary Care Provider Unavailable Reason for Visit * Reason Comments Suicidal Encounter Details Date Type Department Care Team (Late st Contact Info) Description 12/26/2023 9:29 PM PLAYER SERVICES REPRESENTATIVE - 12/28/2023 9:36 AM [facility] [address] [place] [id number] Adeel Underwood MD [address] [place], [place] [id number] Cluster B personality disorder (HRC) (Primary Dx); [...] Comments Blood Pressure 116/82 12/28/2023 7:16 AM PLAYER SERVICES REPRESENTATIVE Pulse 100 12/28/2023 7:16 AM PLAYER SERVICES REPRESENTATIVE Temperature 36.3 ??C (97.3 ??F) 12/27/2023 11:[address] Respiratory Rate 19 12/28/2023 7:16 AM PLAYER SERVICES REPRESENTATIVE Oxygen Saturation 97% 12/28/2023 7:16 AM PLAYER SERVICES REPRESENTATIVE Inhaled Oxygen Concentration - - Weight - - Height - - Body Mass Index - - documented in this encounter Discharge Summaries * Mariam Escalona PA-C - 12/28/2023 7:26 AM CST [facility] Emergency Medicine Observation Discharge Summary ED Arrival [...] (HRC) Time spent in discharge: 15 minutes ER SERVICES REPRESENTATIVE documented in this encounter Discharge Instructions * Discharge Instructions* Mariam Escalona PA-C - 12/28/2023 7:30 AM PLAYER SERVICES REPRESENTATIVE Please continue to take your medications Please follow up with your outpatient care team to discuss your presentation to the ED Call crisis number below or 911 with safety concerns. You can call for crisis help 18/06 at [phone] ER SERVICES REPRESENTATIVE documented in this encounter Medications at Time [...] pain + indigestion. Maximum 10 tablets/24 hours. Ixbnizv-Gvbaoglxar-S enthol (VICKS VAPORUB EX) Apply topically underneath [...] by mouth daily at bedtime. nystatin (MYCOSTATIN) [id number] UNIT/GM cream Apply topically two times daily [...] than 24 hours in the ED. Per longterm patient has been doing quite well on her current medications and does not want them discontinued. Occasionally she becomes more behavioral because she is tired of being in the longterm and wants to be in the hospital. She likes being in the hospital. custodial is willing to take her back as long as her suicidal ideations have reduced. Staff and we decided we will keep her in the ED for 24 hours and then discharge her tomorrow. custodial willing to take her back tomorrow morning. [...] her current regimen [facility] She occasionally gets behavioral and likes [...] choke herself and trying to drink nail chinese. 5. History of depression with psychosis versus [...] disorder. PLAN-restart Clozaril 100 mg b.i.d.. The longterm did send the med list-and patient is on Clozaril 100 mg b.i.d.. -patient will be here till tomorrow morning and then will be discharged back to the longterm. Chantell Mejia MD-Psychiatry ER SERVICES REPRESENTATIVE documented in this encounter Consult Notes * Robles Galloime Lino - 12/26/2023 10:30 PM CSTAssociated Order(s): ED SOCIAL WORK CONSULT [facility] Emergency Department Social Work Crisis Assessment [...] choke herself and trying to drink nail chinese. 5. History of depression with psychosis versus [...] the ED with medics. Patient arrives from longterm where patient attempted to hang herself with her CPAP cords and attempted to eat batteries. Group Homestaff was able to prevent her from doing this. Patient was reported to be violent towards PD and was cooperative for transport. Patient reports current suicidal ideation. Patient reports hitting her head on the linn repeatedlyat the longterm tonight. Patient states that she has been [...] if she is sent back to the longterm while she feels this way, she will [...] she is forced to return to her longterm tonight Current Stressors and Relevant History: Triggering events leading to humiliation, shame, and/or despair (e.g. loss of relationship, financial or health status) (real or anticipated) Protective Factors: None Family History: Not applicable Living Situation: custodial 3:1 staff: resident ratio during the day 2:1 ratio at night. Legal Issues (include comments regarding probation, incarcerations, etc): None reported Employment/Income: Unemployed Mental Health Care: Machine Finisher: Yes Care Providers - Dr. Panda - [...] intentto harm herself. Patient resides in a longterm and had attempted to take action to [...] time. unwilling to have patient return to [facility] if patient is still endorsing thoughts or plans to hurt herself. Suicide Risk: Plan: Reassess Legal Status: Voluntary Discussed with: Steve Romero LEAD SOFTWARE TEST ENGINEER, [facility] 12/26/2023, 10:31 PM ADDENDUM: Kimberly Staff, [...] she is unable to contract for safety. Heating And Air Conditioning Mechanic attempted to call pt's guardian, Ana Maria, mother, , gag writer left a message requesting return phone call. Jaclyn Jimenez, [facility] 12/27/2023, 8:46 AM ADDENDUM: Heating And Air Conditioning Mechanic spoke with pt's mom Ana Maria. Ana [...] guys feel after your assessment. If the longterm truly doesn't feel okay with her going home - I mean she knows what to say in either situation and sure couldwind up back. I just don't want her coming in for medication purposes. Heating And Air Conditioning Mechanic shared we would rosebud back with disposition plan. Ana Maria shared [...] will need a securetransport home. Jaclyn Jimenez, [facility] 12/27/2023, 9:56 AM ADDENDUM: Pt continues [...] via secure transport on 12/28 @ 0800. Heating And Air Conditioning Mechanic spoke with staff, Marta, , who is in agreement with pt to be d/c home on 12/28 @ 0800 via secure transport. Heating And Air Conditioning Mechanic spoke with pt's guardian, Ana Maria, mother, , who is in agreement with pt to be d/c home on 12/28 @ 0800 via secure transport. Psychiatry was also involved in the planning of this pt and is in agreement with this plan. Pt to be d/c home on 12/28 @ 0800 via secure transport. Jaclyn Jimenez, [facility] 12/27/2023, 1:14 PM ADDENDUM: Per nursing - [facility] is en route to bring pt back to longterm for discharge. Wyatt aGllo BA - ED Crisis SW Coordinator 12/28/2023, 8:27 AM ER SERVICES REPRESENTATIVE documented in this encounter ED Notes * Edith Guzman RN - 12/28/2023 9:36 AM CST [facility] ED Nursing Discharge Note Arrival Information: Patient arrived: Ambulance Patient escorted by: EMS/Ambulance Discharge Information: Patient discharged: [facility] - Verbal report given to returning facility: Yes - Facility name: , Date/Time report given: 331, Report given to: longterm staff, Phone number call: Patient accompanied by: [...] Legal Status Orders (From admission, onward) None ER SERVICES REPRESENTATIVE * Antonino Reno RN - 12/28/2023 3:32 AM CST [facility] called for transport to , will be here between [id number]. ER SERVICES REPRESENTATIVE * Dia Galeana RN - 12/27/2023 7:29 PM CST Report given to Jarocho Reed RN ER SERVICES REPRESENTATIVE * Dia Galeana RN - 12/27/2023 8:38 AM CST Pt awake in room, eating breakfast, reports all over abdominal pain, rates pain a 02/02, will notifyPA-C ER SERVICES REPRESENTATIVE * Dia Galeana RN - 12/27/2023 8:04 AM CST Assumed pt care Pt in room, sleeping with respirations easy and nonlabored ER SERVICES REPRESENTATIVE * Joe Means RN - 12/26/2023 10:18 PM CST Pt is awake, resting in room. Calm and cooperative. Will continue to monitor. ER SERVICES REPRESENTATIVE * Steve Garcia PA-C - 12/26/2023 9:32 PM CST [facility] Emergency Medicine Visit Note Chief Complaint: Suicidal HPI 28 yo female with a hx of developmental delay, ADHD, Cluster B personality disorder, Intermittent explosive disorder, Diabetes, CKD and GERD brought to the ED by EMS from her longterm after she tried to strangle herself with [...] and discussion about discharge back to her longterm. Patient did not offer complaints of shortness [...] beneficial and ultimate recommendation is for discharge. custodial will not take her back until 8:00 [...] out pending secure transport back to her longterm at 8:00 a.m.. [DC] 0701 Patient signed out pending discharge to the longterm. [MATTEO] 0721 Sign out received, assumed care at this time. 28 yo F presenting from after trying to hand self with CPAP cords and eating batteries. Planned discharge back to at 8a [SP] ED Course User Index [DC] Neyda Campbell PA-C [MATTEO] Jaclyn Soiltario PA-C [SP] Mariam Escalona PA-C [SS] Zhen Dickson PA-C Clinical Impressions as of 12/28/23 0722 Cluster B personality disorder (HRC) Autism spectrum (HRC) ER SERVICES REPRESENTATIVE documented in this encounter Plan of Treatment Not on file documented as of this encounter Procedures Procedure Name Priority Date/Time Associated Diagnosis Comments POCT URINE STAT 12/27/2023 9:40 AM PLAYER SERVICES REPRESENTATIVE UA CONDITIONAL UC STAT 12/27/2023 9:3 8 AM PLAYER SERVICES REPRESENTATIVE documented in this encounter Results * POCT urine (12/27/2023 9:40 AM PLAYER SERVICES REPRESENTATIVE) Urine Test - POC Negative Negative POCT Control Line Present, Clear Background - Internal control Yes POCT Cartridge Lot# [id number] POCT Urine 12/27/2023 9:40 AM PLAYER SERVICES REPRESENTATIVE Zhen Jacques PA-C ET POINT OF CARE TE ST ENTER/EDIT ORDERABLES POCT * (ABNORMAL) UA Conditional UC: Clean Catch (12/27/2023 9:38 AM PLAYER SERVICES REPRESENTATIVE) Urine Culture Comment Urinalysis results do not meet criteria for urine culture reflex. 12/27/2023 10:10 AM [facility] Urine Color Light-Yellow 12/27/2023 10:10 AM [facility] Urine Clarity Clear Clear 12/27/2023 10:10 AM [facility] Specific [place], Urine 1.005 <1.030 12/27/2023 10:10 AM [facility] PH Urine 7.0 5.0 - 8.0 12/27/2023 10:10 AM [facility] Protein, Urine Qual (mg/dL) 30(A) Negative, 10 , 20 12/27/2023 10:10 AM [facility] Glucose Urine Qual (mg/dL) Normal (Negative) Normal (Negative), 30 , 50 12/27/2023 10:10 AM [facility] Ketones, Urine (mg/dL) Negative Negative, Trace 12/27/2023 10:10 AM [facility] Urobilinogen, Urine (EU/dL) Normal (Negative) Normal (Negative) 12/27/2023 10:10 AM [facility] Bilirubin Urine (mg/dL) Negative Negative 12/27/2023 10:10 AM [facility] Blood, Urine (mg/dL) Negative Negative, 0.03 (Trace) 12/27/2023 10:10 AM [facility] Nitrite Urine Negative Negative 12/27/2023 10:10 AM [facility] Leukocyte Esterase, Urine (Julien/uL) Negative Negative, 25 (Trace) 12/27/2023 10:10 AM [facility] Red Blood Cells <1 0 - 3 /HPF 12/27/2023 10:10 AM [facility] White Blood Cells 1 0 - 5 /HPF 12/27/2023 10:10 AM [facility] Squamous Epithelial Cells Occasional None Seen, Occasional, Few /HPF 12/27/2023 10:10 AM [facility] Mucus Present(A) None Seen /HPF 12/27/2023 10:10 AM [facility] Urine Source Clean Catch 12/27/2023 10:10 AM [facility] Urine URINE SPECIMEN COLLECTION, CLEAN CATCH / Unknown Non-blood Collection / Unknown 12/27/2023 9:38 AM PLAYER SERVICES REPRESENTATIVE 12/27/2023 9:42 AM PLAYER SERVICES REPRESENTATIVE Narrative [facility] - 12/27/2023 10:10 AM [facility] The qualitative interpretive guidance provided (e.g., small, moderate, large) is intended to aid in quantitative result interpretation. It is not itself an FDA-cleared test result. Zhen Jacques PA-C LAB_1 [facility] [address] [place] [address], [facility] documented in this encounter Visit Diagnoses Diagnosis Cluster B personality disorder (HRC)- Primary Unspecified personality disorder Autism spectrum (HRC) Autistic disorder, current or active state * Plan of Care - Asaf Sandoval, PharmD - 12/26/2023 10:45 PM CST Images from the original note were not included. [facility] Clozapine Lab Monitoring Note Elisa [...] For questions, please contact pharmacy or visit [email or web address]. Plan to check Absolute PMN in 2 weeks. Pharmacy will continue to follow. Lab Data: Absolute PMN (ANC): Neutrophil Absolute Date Value Ref Range Status 12/11/2023 4.1 1.7 - 7.0 10(9)/L Final Absolute Neutrophils Date Value Ref Range Status 06/14/2015 5.7 1.8 - 8.0 k/cmm Final ER SERVICES REPRESENTATIVE * Triage Assessment Note - Joe Means RN - 12/26/2023 9:36 PM PLAYER SERVICES REPRESENTATIVE Pt arrives via EMS from longterm. Pt attempted to hang herself with her CPAP cords and attempted to eat batteries. [facility] staff was able to prevent her from doing this. Pt is a 3 to 1 watch at her longterm. She was violent towards PD, but was cooperative for transport. Blood Sugar 156 by medics. Upon arrival pt calm and cooperative, allows vital signs. Awaiting team assessment. Pt wanded by security, placed on 15 min roundings. ER SERVICES REPRESENTATIVE documented in this encounter Administered Medications Inactive Administered Medications - up to 3 most recent administrations Medication Order MAR Action Action Date Dose Rate Site aluminum-magnesium hydroxide-simethicone (MYLANTA) 200-200-20 MG/5ML suspension 30 mL 30 mL, Oral, ONCE, On Sun12/26/23 at 2330, For 1 dose, Shake well before administration Given 12/26/2023 11:49 PM PLAYER SERVICES REPRESENTATIVE 30 mL amLODIPine (NORVASC) tablet 10 mg 10 mg, Oral, DAILY, First dose on Sun12/27/23 at 0800, Until Discontinued Given 12/28/2023 7:10 AM PLAYER SERVICES REPRESENTATIVE 10 mg Given 12/27/2023 9:47 AM PLAYER SERVICES REPRESENTATIVE 10 mg cloZAPine (CLOZARIL) tablet 100 mg 100 mg, Oral, BID, First dose on Sun12/27/23 at 1300, Until Discontinued, Indications: Schizoaffective Disorder Given 12/28/2023 7:12 AM PLAYER SERVICES REPRESENTATIVE 100 mg Given 12/27/2023 11:32 PM PLAYER SERVICES REPRESENTATIVE 100 mg Given 12/27/2023 1:32 PM PLAYER SERVICES REPRESENTATIVE 100 mg divalproex (DEPAKOTE ER) 24 hour release tablet 1,000 mg 1,000 mg, Oral, BID, First dose on Sun12/27/23 at 0800, Until Discontinued, Tablet/Capsule should be swallowed whole. HAZARDOUS DRUG Preparation: Single glove Administration: If no touch, no PPE; if handling, single glove Given 12/28/2023 7:10 AM PLAYER SERVICES REPRESENTATIVE 1,000 mg Given 12/27/2023 9:34 PM PLAYER SERVICES REPRESENTATIVE 1,000 mg Given 12/27/2023 9:47 AM PLAYER SERVICES REPRESENTATIVE 1,000 mg FLUoxetine (PROZAC) capsule 40 mg 40 mg, Oral, DAILY, First dose on Sun12/27/23 at 0800, Until Discontinued Given 12/28/2023 7:10 AM PLAYER SERVICES REPRESENTATIVE 40 mg Given 12/27/2023 9:47 AM PLAYER SERVICES REPRESENTATIVE 40 mg levothyroxine (SYNTHROID) tablet 100 mcg 100 mcg, Oral, DAILY AT 0600, First dose on Sun12/27/23 at 0600, Until Discontinued, Take on an empty stomach, one hour before meals or two hours after. Given 12/28/2023 7:11 AM PLAYER SERVICES REPRESENTATIVE 100 mcg Given 12/27/2023 9:48 AM PLAYER SERVICES REPRESENTATIVE [address] (PROTONIX) tablet 40 mg 40 mg, Oral, DAILY AT 0600, First dose on Sun12/27/23 at 0600, Until Discontinued, Tablet should be swallowed whole. Best when taken before a meal, but may be taken with food. Given 12/28/2023 7:11 AM PLAYER SERVICES REPRESENTATIVE 4 0 mg Given 12/27/2023 9:48 AM PLAYER SERVICES REPRESENTATIVE 40 mg sennosides-docusate sodium (SENOKOT S) 8.6-50 MG per tablet 1 Tablet 1 Tablet, Oral, BID, First dose on Sun12/27/23 at 0800, Until Discontinued, as laxative/stimulant, stool-softening agent Given 12/28/2023 7:12 AM PLAYER SERVICES REPRESENTATIVE 1 Tablet Given 12/27/2023 9:34 PM PLAYER SERVICES REPRESENTATIVE 1 Tablet Given 12/27/2023 9:48 AM PLAYER SERVICES REPRESENTATIVE 1 Tablet sucralfate (CARAFATE) tablet 1 g [...] route sucralfate administration. Given 12/28/2023 8:03 AM PLAYER SERVICES REPRESENTATIVE 1 g Given 12/27/2023 4:45 PM PLAYER SERVICES REPRESENTATIVE 1 g documented in this encounter Active and Recently Administered Medications Times are shown in PLAYER SERVICES REPRESENTATIVE. Scheduled Medication Order 12/26/2023 12/27/2023 12/28/2023 aluminum-magnesium [...] Jackeline Luo RN) 0710 (Given - Provider: Antonino Reno RN) FLUoxetine (PROZAC) capsule 40 mg [...] RN) documented in this encounter Care Teams Frame Operator Relationship Specialty Start Date End Date No Primary/Referring, Phy PCP - General 06/26/22 documented as of this encounter
== END 2024-03-23 19:30 | disposition home or self-care (01) ==
LOC: AMB 03-29 19:31
PROVIDERS: Visit Provider Student in an Organized Health Care Education/Training Program
DX: R45.851 Suicidal ideations (principal)
CPT/HCPCS: A0425; A0427

== ENCOUNTER 2024-04-03 19:47 | Outpatient (CLI) | payer MEDICARE, OTHER, SELFPAY | END 2024-04-03 19:48 | disposition home or self-care (01) | LOC: AMB 04-04 16:56 | PROVIDERS: Visit Provider Emergency Medicine | DX: F29 Unspecified psychosis not due to a substance or known physiological condition (principal); F91.9 Conduct disorder, unspecified; R45.851 Suicidal ideations | CPT/HCPCS: A0425; A0427 ==

== ENCOUNTER 2024-05-19 06:29 | Emergency (ER) | payer MEDICARE, OTHER, SELFPAY ==
[2024-05-19 06:49] VITALS: BP 152/86; PULSE 85; RESP 16; TEMP 36.5; O2SAT 98; BMI 41.6
--- NOTE | 2024-05-19 07:17 | ED_ITS ---
HPI - General Adult General Chief complaint: Chest Pain <Jinny Back MD - Last Filed: 05/21/24 00:08> Stated complaint: vomiting, chest pain <Jinny Back MD - Last Filed: 05/21/24 00:08> Time Seen by Provider: 05/19/24 07:04 <Jinny Back MD - Last Filed: 05/21/24 00:08> Source: patient and family <Jinny Back MD - Last Filed: 05/21/24 00:08> Mode of arrival: ambulatory <Jinny Back MD - Last Filed: 05/21/24 00:08> Limitations: no limitations <Jinny Back MD - Last Filed: 05/21/24 00:08> History of Present Illness HPI narrative: Ceased 29-year-old female with multiple comorbidities presents to the emergency department for evaluation of chest pain, nausea and vomiting. Chest pain started approximately 10 hours prior to presentation and then quickly followed by nausea. She had vomiting at 4:30 a.m. this morning, prompting her staff to bring her to the emergency department. She notes no fever, no trauma or injury. No diarrhea or bloody stools. She has had only 1 bout of vomiting but continues to feel nauseated. She does have a history of gastric reflux. She also does have a history of prior chest wall pain as well as a pulmonary embolism. She reports that she is not currently taking any blood thinners and review of the records does seem to confirm this. I do not know the circumstances regarding her previous pulmonary embolism. She denies a personal history of cardiac disease and also denies family history. But she does have morbid obesity, hypertension and sleep apnea. Has not tried any other interventions prior to coming to the ED. Pain is located in the epigastrium and also in the left breast area. Does not radiate. No shortness of breath, dizziness or other concerning symptoms. No recent fevers or sick contacts or pertinent travel. Her only recent medication changes that she stop taking previous control and has been on Depo-Provera for the last couple of weeks. Past medical history notable for diabetes, morbid obesity, anxiety, bipolar disorder, hypertension, prior pulmonary embolism. ROS notable for the cardiac and GI symptoms as described above only, otherwise denies times 12 systems. <Jinny Back MD - Last Filed: 05/21/24 00:08> Related Data Home medications: Home Medications ?Medication ?Instructions ?Recorded ?Confirmed acetaminophen 500 mg tablet 500 mg PO BID PRN 05/27/22 02/08/24 albuterol sulfate 90 mcg/actuation 1 - 2 puff inhalation TID PRN 05/27/22 02/08/24 aerosol inhaler amlodipine 10 mg tablet 10 mg PO DAILY 05/27/22 02/08/24 atorvastatin 40 mg tablet 40 mg PO DAILY 05/27/22 02/08/24 blood sugar diagnostic (Accu-Chek 05/27/22 02/08/24 Guide test strips) calcium carbonate (Calcium Antacid) 500 mg PO BID PRN 05/27/22 02/08/24 cholecalciferol (vitamin D3) 25 25 mcg PO DAILY 05/27/22 02/08/24 mcg (1,000 unit) capsule cyclobenzaprine 5 mg tablet 5 mg PO Q8H PRN 05/27/22 02/08/24 dulaglutide 1.5 mg/0.5 mL 1.5 mg subcut QWEEK 05/27/22 02/08/24 subcutaneous pen injector (Trulicity) fluoxetine 10 mg capsule 30 mg PO DAILY 05/27/22 02/08/24 fluticasone 100 mcg-salmeterol 50 1 inh inhalation Q12H 05/27/22 02/08/24 mcg/dose blistr powdr for inhalation (Advair Diskus) gabapentin 100 mg capsule 300 mg PO DAILY 05/27/22 02/08/24 lancets (Accu-Chek Fastclix Lancet 05/27/22 02/08/24 Drum) levothyroxine 100 mcg tablet 100 mcg PO DAILY 05/27/22 02/08/24 loratadine 10 mg tablet (Allergy 10 mg PO DAILY 05/27/22 02/08/24 Relief (loratadine)) olanzapine 15 mg tablet 15 mg PO HS 05/27/22 02/08/24 olanzapine 5 mg tablet 5 mg PO Q4H PRN 05/27/22 02/08/24 tramadol 50 mg tablet 50 mg PO BID PRN 05/27/22 02/08/24 melatonin 5 mg capsule 5 mg PO HS PRN 06/14/22 02/08/24 pantoprazole 40 mg tablet,delayed 40 mg PO DAILY 06/14/22 02/08/24 release sucralfate 1 gram tablet 1 g PO BID 06/14/22 02/08/24 urea 20 % topical cream 1 applic topical DAILY 06/14/22 02/08/24 calcitriol 0.25 mcg capsule 0.25 mcg PO DAILY 08/16/22 02/08/24 glycerin (adult) (Fleet Glycerin 1 supp OR DAILY PRN 08/16/22 02/08/24 (Adult) rectal suppository) albuterol sulfate 90 mcg/actuation 1 inh inhalation Q4H PRN 09/20/22 02/08/24 aerosol inhaler (Ventolin HFA) emollient (Vanicream topical) 1 applic topical Q6H PRN 09/20/22 02/08/24 hyoscyamine sulfate 0.125 mg 0.125 mg PO Q4-6H PRN 09/20/22 02/08/24 tablet (Levsin) polyethylene glycol 3350 17 17 g PO BID PRN 09/20/22 02/08/24 gram/dose oral powder (Gavilax) umeclidinium 62.5 mcg/actuation 1 inh inhalation DAILY 09/20/22 02/08/24 blister powder for inhalation (Incruse Ellipta) albuterol sulfate 2.5 mg/3 mL 2.5 mg inhalation Q4H PRN 10/08/22 02/08/24 (0.083 %) solution for nebulization sennosides 8.6 mg-docusate sodium 1 tab-cap PO BID 10/08/22 02/08/24 50 mg tablet (Senexon-S) icosapent ethyl 1 gram capsule 1 g PO BID 12/10/22 02/08/24 (Vascepa) triamcinolone acetonide 0.1 % 1 applic topical QDAY PRN chest 12/10/22 02/08/24 topical cream scars clozapine 100 mg tablet 100 mg PO BID 01/26/23 02/08/24 divalproex 500 mg tablet,extended 1,000 mg PO BID 01/26/23 02/08/24 release 24 hr fluticasone 100 mcg-salmeterol 50 1 inh inhalation BID 01/26/23 02/08/24 mcg/dose blistr powdr for inhalation (Advair Diskus) gabapentin 300 mg capsule 300 mg PO Q12H 01/26/23 02/08/24 montelukast 10 mg tablet 10 mg PO QHS 01/26/23 02/08/24 (Singulair) propranolol 60 mg tablet 60 mg PO QHS 05/18/23 02/08/24 lactulose PO 02/08/24 02/08/24 simethicone 125 mg capsule (Gas mg PO 02/08/24 02/08/24 Relief Extra Strength) Previous Rx's ?Medication ?Instructions ?Recorded ciprofloxacin HCl 0.3 % eye drops See Rx Instructions ophthalmic 12/24/22 (eye) .COMPLEX #10 mL Walker- 2 Wheels #1 ea 03/19/23 doxycycline hyclate 100 mg capsule 100 mg PO BID #14 caps 05/19/24 <Jinny Back MD - Last Filed: 05/21/24 00:08> Allergies/adverse reactions: Allergies Allergy/AdvReac Type Severity Reaction Status Date / Time lithium Allergy Severe Verified 05/19/24 13:06 ziprasidone [From Geodon] Allergy Severe Anaphylaxis Verified 05/19/24 13:06 amoxicillin Allergy Intermediate Hives Verified 05/19/24 13:06 Penicillins Allergy Intermediate Hives Verified 05/19/24 13:06 amantadine [From Symmetrel] AdvReac Intermediate sedation Verified 05/19/24 13:06 NSAIDS (Non-Steroidal AdvReac Intermediate Verified 05/19/24 13:06 Anti-Inflamma <Jinny Back MD - Last Filed: 05/21/24 00:08> [facility] Medical History: Medical History History of pulmonary embolism ?Z86.711 - Personal history of pulmonary embolism (ICD-10) Conjunctivitis ?H10.9 - Unspecified conjunctivitis (ICD-10) Hyperlipidemia ?E78.5 - Hyperlipidemia, unspecified (ICD-10) Allergic rhinitis due to pollen ?J30.1 - Allergic rhinitis due to pollen (ICD-10) Hypercoagulopathy ?D68.59 - Other primary thrombophilia (ICD-10) Autism ?F84.0 - Autistic disorder (ICD-10) Anxiety ?F41.9 - Anxiety disorder, unspecified (ICD-10) 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 [IgA] (ICD-10) Mild cognitive impairment ?G31.84 - Mild cognitive impairment of uncertain or unknown etiology (ICD-10) ADHD ?F90.9 - Attention-deficit hyperactivity disorder, unspecified type (ICD-10) Bipolar disorder ?F31.9 - Bipolar disorder, unspecified (ICD-10) 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 (ICD-10) Hyperparathyroidism due to renal insufficiency ?N25.81 - Secondary hyperparathyroidism of renal origin (ICD-10) Pulmonary emboli ?I26.99 - Other pulmonary embolism without acute cor pulmonale (ICD-10) Suicidal ideation ?R45.851 - Suicidal ideations (ICD-10) Suicide attempt ?T14.91XA - Suicide attempt, initial encounter (ICD-10) Chronic kidney disease, stage IV (severe) ?N18.4 - Chronic kidney disease, stage 4 (severe) (ICD-10) Morbid obesity with BMI of 45.0-49.9, adult ?E66.01 - Morbid (severe) obesity due to excess calories (ICD-10) ?Z68.42 - Body mass index [BMI] 45.0-49.9, adult (ICD-10) Asthma ?J45.909 - Unspecified asthma, uncomplicated (ICD-10) DEBRA (obstructive sleep apnea) ?G47.33 - Obstructive sleep apnea (adult) (pediatric) (ICD-10) Kidney disease ?N28.9 - Disorder of kidney and ureter, unspecified (ICD-10) GERD (gastroesophageal reflux disease) ?K21.9 - Gastro-esophageal reflux disease without esophagitis (ICD-10) Renal failure ?N19 - Unspecified kidney failure (ICD-10) Type 2 diabetes mellitus ?E11.9 - Type 2 diabetes mellitus without complications (ICD-10) 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 - Mild intellectual disabilities (ICD-10) History of reactive attachment disorder ?Z86.59 - Personal history of other mental and behavioral disorders (ICD-10) Oppositional defiant disorder ?F91.3 - Oppositional defiant disorder (ICD-10) Pervasive developmental disorder ?F84.9 - Pervasive developmental disorder, unspecified (ICD-10) Intermittent explosive disorder ?F63.81 - Intermittent explosive disorder (ICD-10) Mood disorder ?F39 - Unspecified mood [affective] disorder (ICD-10) PTSD (post-traumatic stress disorder) ?F43.10 - Post-traumatic stress disorder, unspecified (ICD-10) <Jinny Back MD - Last Filed: 05/21/24 00:08> Surgical History: Surgical History History of tonsillectomy and adenoidectomy ?Z90.89 - Acquired absence of other organs (ICD-10) History of appendectomy ?Z90.49 - Acquired absence of other specified parts of digestive tract (ICD- 10) <Jinny Back MD - Last Filed: 05/21/24 00:08> Family History: Family History Paternal Grandfather Colon cancer Mother Thyroid disease Aunt High blood pressure <Jinny Back MD - Last Filed: 05/21/24 00:08> Social History: Social History Narrative: Single. Lives in a long-term What is your current living situation?: I presently have a place to live Problems where you live: no known problems In the past 12 months, utilities in danger of being shut off: no In past 12 months, lack of transportation kept you from medical appts, meetings, work, or getting things needed for daily living: no How hard is it for you to pay for the very basics like food, housing, medical care, and heating: not very hard In the past 12 mos, have been you worried that your food would run out before you had money to buy more?: never true In the past 12 mos, the food you bought just didn't last and you didn't have money to buy more?: never true Smoking Status: Never smoker Do you use any of these nicotine containing products: None Second hand tobacco smoke exposure: No How often do you have a drink containing alcohol: never AUDIT-C Alcohol total score: 0 Non-prescribed substance use: denies use How often does anyone, including family, friends and others, physically hurt you : never How often does anyone, including family, friends and others, insult or talk down to you: never How often does anyone, including family, friends and others, threaten you with harm: never How often does anyone, including family, friends and others, scream or curse at you: never service: No <Jinny Back MD - Last Filed: 05/21/24 00:08> Exam Const: Vital Signs, click to edit/add: Vital Signs - 24 hr 05/19/24 06:49 Temperature 97.7 F Pulse Rate [Pulse Oximeter] 85 Respiratory Rate 16 Blood Pressure [Ri ght Upper Arm] 152/86 H Pulse Oximetry 98 Oxygen Delivery Me thod Room Air <Jinny Back MD - Last Filed: 05/21/24 00:08> Vital Signs, click to edit/add: Vital Signs - 24 hr 05/19/24 06:49 Temperature 97.7 F Pulse Rate [Pulse Oximeter] 85 Respiratory Rate 16 Blood Pressure [Ri ght Upper Arm] 152/86 H Pulse Oximetry 98 Oxygen Delivery Me thod Room Air <Joe Harrison MD - Last Filed: 05/19/24 21:52> Documenting provider has reviewed patient's vital signs: yes <Jinny Back MD - Last Filed: 05/21/24 00:08> Common normals: no apparent distress <Jinny Back MD - Last Filed: 05/21/24 00:08> Other: Calm and cooperative with no agitation today. Appears well nourished and well hydrated. <Jinny Back MD - Last Filed: 05/21/24 00:08> HENMT: Common normals: normocephalic and oropharynx normal <Jinny Back MD - Last Filed: 05/21/24 00:08> Head and scalp: normocephalic <Jinny Back MD - Last Filed: 05/21/24 00:08> Face and sinus: normal facial exam <Jinny Back MD - Last Filed: 05/21/24 00:08> Mouth: oral and palatal mucosa normal <MD Bear Murphy Last Filed: 05/21/24 00:08> Eye: Common normals: conjunctivae normal <MD Bear Murphy Last Filed: 05/21/24 00:08> General eye: normal appearance of both eyes <MD Bear Murphy Last Filed: 05/21/24 00:08> Conjunctiva: conjunctiva(e) normal <MD Bear Murphy Last Filed: 05/21/24 00:08> Neck & C-Spine: Common normals: no lymphadenopathy <MD Bear Murphy Last Filed: 05/21/24 00:08> Chest: Common normals: palpation of chest normal <MD Bear Murphy Last Filed: 05/21/24 00:08> Resp: Common normals: normal respiratory effort, no use of accessory muscles and clear to auscultation bilaterally <MD Bear Muprhy Last Filed: 05/21/24 00:08> Effort & inspection: able to speak in complete sentences <MD Bear Murphy Last Filed: 05/21/24 00:08> Auscultation: clear to auscultation bilaterally <MD Bear Murphy Last Filed: 05/21/24 00:08> Cardio: Common normals: regular rate, regular rhythm, S1 normal heart sound, S2 normal heart sound and no murmurs <MD Bear Murphy Last Filed: 05/21/24 00:08> Rate: regular rate <MD Bear Murphy Last Filed: 05/21/24 00:08> Rhythm: regular rhythm <MD Bear Murphy Last Filed: 05/21/24 00:08> Heart sounds: S1 normal and S2 normal <MD Bear Murphy Last Filed: 05/21/24 00:08> GI: Common normals: Normal to inspection, nondistended, normoactive bowel sounds present, soft to palpation, no hepatosplenomegaly and no masses <MD Bear Murphy Last Filed: 05/21/24 00:08> Palpation: soft and no hepatosplenomegaly <MD Bear Murphy Last Filed: 05/21/24 00:08> Other: Organs difficult to palpate due to body habitus. Some mild epigastric tenderness but no rebound tenderness or guarding. <MD Bear Murphy Last Filed: 05/21/24 00:08> Extremity: Common normals: normal capillary refill and no pedal edema <MD Bear Murphy Last Filed: 05/21/24 00:08> General: normal exam except as noted <MD Bear Murphy Last Filed: 05/21/24 00:08> Neuro: Common normals: moves all extremities and no focal motor deficits <MD Bear Murphy Last Filed: 05/21/24 00:08> Speech: speech normal <MD Bear Murphy Last Filed: 05/21/24 00:08> Psych: Common normals: speech normal <MD Bear Murphy Last Filed: 05/21/24 00:08> Attitude: engaged <MD Bear Murphy Last Filed: 05/21/24 00:08> Activity/motor behavior: appropriate eye contact <MD Bear Murphy Last Filed: 05/21/24 00:08> Speech: normal speech <MD Bear Murphy Last Filed: 05/21/24 00:08> Insight: fair <MD Bear Murphy Last Filed: 05/21/24 00:08> Judgement: fair <MD Bear Murphy Last Filed: 05/21/24 00:08> Skin: Narrative: Small superficial abrasions on wrist but none appear infected, bleeding or inflamed at this time <MD Bear Murphy Last Filed: 05/21/24 00:08> Course Course ED Course: 29-year-old female with no prior cardiac history presenting with chest and epigastric pain. The chest pain is most likely referred from nausea and reflux. She does have some risk factors for heart disease and pulmonary embolism as well. At this time she is not showing any signs of tachycardia or hypoxia. She is on a beta-steve that could mask tachycardia. Will give famotidine and Zofran p.o., may not be a good candidate for long-term famotidine due to reported chronic kidney disease. Will obtain typical labs, EKG and cardiac monitoring. Await findings and response to medications. <Jinny Back MD - Last Filed: 05/21/24 00:08> Reevaluation(s) Reevaluation #1: Patient signed out to Dr. Harrison at shift change-830 on 05/19 29-year-old female with a fairly significant past medical history of previous unprovoked PE (not currently on anticoagulation), also hypertension, type 2 diabetes, obesity, previous cholecystectomy, previous appendectomy. She presents to the ER with chest pain ongoing overnight last night and epigastric abdominal pain. Initial workup shows a nonischemic EKG with normal sinus rhythm. Initial troponin is undetectable. Given the duration of her symptoms, single troponin is sufficient to rule out NSTEMI. Other labs are currently pending. I will follow-up on labs results and continue workup accordingly. Dr. Back suspects that the pain is probably GI in nature such as gastritis. If other workup turns up reassuring, Would discharge home with PPI and Zofran for symptomatic relief. Dr. Harrison added on lipase level. Labs: WBC 9.5, hemoglobin 11.2, platelet count 206 Sodium 140, potassium 4.4, chloride 107, bicarb 23, BUN 46, creatinine 2.3 (however previous creatinine was 2.8, so today's improved), glucose 115, calcium 9.6 AST 65 (was 33), ALT 70 (prior was 30), alk-phos 316 (previous was 93) Point of care troponin was undetectable. And terminal proBNP normal at 256 D-dimer is abnormal at 2.[address] scan of the patient's chest to rule out PE. She does have renal insufficiency but at this point the risk of PE would outweigh the risk of contrast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. Will also have them include CT abdomen pelvis on the CT scan (without an additional dye load) to evaluate for potential causes of upper abdominal pain and abnormal liver function tests. She is already status post cholecystectomy. The patient went to CT scan. Unfortunately her IV access went bad so CT was initially not possible. CT was delayed. We had have anesthesia started on appropriate IV. Ultimately CT scan was obtained. CT scan is negative for PE. It does show evidence for a left lower lobe pneumonia. She does have minimal cough but no hypoxia or difficulty breathing. Will treat with a course of doxycycline 100 mg b.i.d. for 7 days. 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 This appears to be a chronic finding since it is associated with collaterals. She is not really having any headache, facial swelling, or other symptoms of SVC syndrome. Discussed with the on-call vascular surgeon, Dr. White, from [facility]. Since she is asymptomatic he would advise against any immediate surgical intervention. However she were to develop symptoms of significant arm swelling, facial swelling, headache, they could consider possible non emergent vascular surgery referral for evaluation. Options may include ligation of her right upper extremity dialysis fistula and or dilation of her SVC. Discussed with the patient and her care providers. <Joe Harrison MD - Last Filed: 05/19/24 21:52> Vital Signs Vital signs: Initial Vital Signs Temperature 97.7 F 05/19/24 06:49 Temperature Source Temporal Artery Scan 05/19/24 06:49 Pulse Rate 85 05/19/24 06:49 Pulse Rhythm Regular 05/19/24 06:49 Respiratory Rate 16 05/19/24 06:49 Blood Pressure 152/86 H 05/19/24 06:49 Blood Pressure Mean 108 H 05/19/24 06:49 Blood Pressure Position Supine 05/19/24 06:49 Pulse Oximetry 98 05/19/24 06:49 Oxygen Delivery Method Room Air 05/19/24 06:49 Vital Signs Temperature 97.7 F 05/19/24 06:49 Pulse Rate 85 05/19/24 06:49 Respiratory Rate 16 05/19/24 06:49 Blood Pressure 152/86 H 05/19/24 06:49 Pulse Oximetry 98 05/19/24 06:49 Oxygen Delivery Method Room Air 05/19/24 06:49 Temperature 97.7 F 05/19/24 06:49 Pulse Rate 85 05/19/24 06:49 Respiratory Rate 16 05/19/24 06:49 Blood Pressure 152/86 H 05/19/24 06:49 Pulse Oximetry 98 05/19/24 06:49 Oxygen Delivery Method Room Air 05/19/24 06:49 <Jinny Back MD - Last Filed: 05/21/24 00:08> Initial Vital Signs Temperature 97.7 F 05/19/24 06:49 Temperature Source Temporal Artery Scan 05/19/24 06:49 Pulse Rate 85 05/19/24 06:49 Pulse Rhythm Regular 05/19/24 06:49 Respiratory Rate 16 05/19/24 06:49 Blood Pressure 152/86 H 05/19/24 06:49 Blood Pressure Mean 108 H 05/19/24 06:49 Blood Pressure Position Supine 05/19/24 06:49 Pulse Oximetry 98 05/19/24 06:49 Oxygen Delivery Method Room Air 05/19/24 06:49 Vital Signs Temperature 97.7 F 05/19/24 06:49 Pulse Rate 85 05/19/24 06:49 Respiratory Rate 16 05/19/24 06:49 Blood Pressure 152/86 H 05/19/24 06:49 Pulse Oximetry 98 05/19/24 06:49 Oxygen Delivery Method Room Air 05/19/24 06:49 Temperature 97.7 F 05/19/24 06:49 Pulse Rate 85 05/19/24 06:49 Respiratory Rate 16 05/19/24 06:49 Blood Pressure 152/86 H 05/19/24 06:49 Pulse Oximetry 98 05/19/24 06:49 Oxygen Delivery Method Room Air 05/19/24 06:49 <Joe Harrison MD - Last Filed: 05/19/24 21:52> Medications Administered Medications: Discontinued Medications Generic Name Dose Route Start Last Admin Trade Name Freq PRN Reason Stop Dose Admin Famotidine 20 mg 05/19/24 07:15 05/19/24 08:08 Famotidine 20 Mg Tablet PO 05/19/24 07:16 20 mg ONCE ONE Administration Ondansetron HCl 4 mg 05/19/24 07:15 05/19/24 08:08 Ondansetron Odt 4 Mg Tab PO 05/19/24 07:16 4 mg ONCE ONE Administration <Jinny Back MD - Last Filed: 05/21/24 00:08> Discontinued Medications Generic Name Dose Route Start Last Admin Trade Name Freq PRN Reason Stop Dose Admin Famotidine 20 mg 05/19/24 07:15 05/19/24 08:08 Famotidine 20 Mg Tablet PO 05/19/24 07:16 20 mg ONCE ONE Administration Ondansetron HCl 4 mg 05/19/24 07:15 05/19/24 08:08 Ondansetron Odt 4 Mg Tab PO 05/19/24 07:16 4 mg ONCE ONE Administration <Joe Harrison MD - Last Filed: 05/19/24 21:52> Medical Decision Making Lab Data Labs: Lab Results 05/19/24 05/19/24 05/19/24 Range/Units 07:15 08:03 09:23 WBC 9.53 (4.50-11.00) K/uL RBC 3.88 L (4.00-5.20) m/uL Hgb 11.2 L (12.0-16.0) gm/dL Hct 35.7 (33.0-51.0) % MCV 92 (80-100) fL MCH 29 (26-34) pg MCHC 31 L (32-36) gm/dL RDW Coeff of Moshe 16.2 H (11.5-15.5) % Plt Count 206 (140-440) K/uL Neut % (Auto) 71.1 (42.0-72.0) % Lymph % (Auto) 19.4 L (20-44) % Brooks % (Auto) 7.7 (0.0-11.0) % Eos % (Auto) 1.6 (0.0-7.0) % Baso % (Auto) 0.1 (0.0-3.0) % Neut # (Auto) 6.78 (1.7-7.0) K/uL Lymph # (Auto) 1.80 (0.90-2.90) K/uL Brooks # (Auto) 0.70 (0.00-0.90) K/UL Eos # (Auto) 0.15 (0.00-0.50) K/uL Baso # (Auto) 0.01 (0.00-0.30) K/uL Abs Immat Gran (auto) 0.01 (0.00-0.30) K/uL Imm/Tot Granulo (auto) 0.1 % D-Dimer Quant (PE/DVT) 2.32 H (0.00-0.50) ug/ml Sodium 140 (135-149) mmol/L Potassium 4.4 (3.6-5.1) mmol/L Chloride 107 (96-114) mmol/L Carbon Dioxide 23 (20-32) mmol/L Anion Gap 10 (7-15) mEq/L BUN 46 H (5-24) mg/dL Creatinine 2.3 H (0.5-1.5) mg/dL Estimated Creat Clear 33.06 Estimated GFR 29 ml/min Glucose 115 (60-115) mg/dL Calcium 9.6 (8.4-10.6) mg/dL Total Bilirubin 0.8 (0.1-1.5) mg/dL AST 65 H (12-35) U/L ALT 70 H (4-35) U/L Alkaline Phosphatase 316 H (40-150) U/L NT-Pro-B Natriuret Pep 256 pg/mL Total Protein 8.0 (6.0-8.3) g/dL Albumin 4.4 (3.3-5.0) g/dL Lipase 294 (23-300) U/L Urine Color Yellow (Yellow) Urine Appearance Clear (Clear) Urine pH 7.0 (5.0-8.5) Ur Specific [place] 1.010 (1.000-1.030) Urine Protein 2+ A (Negative) Urine Glucose (UA) Negative (Negative) Urine Ketones Negative (Negative) Urine Blood Negative (Negative) Urine Nitrite Negative (Negative) Urine Bilirubin Negative (Negative) Urine Urobilinogen 0.2 (0.2-1.0) Ur Leukocyte Esterase Negative (Negative) Urine RBC 0-2 (0-2) Urine WBC 0-2 (0-5) Ur Squamous Epith Cells Few (None-Few) Urine Bacteria Few A (None) POC Troponin I 0.01 (0.01-0.04) ng/ml <Jinny Back MD - Last Filed: 05/21/24 00:08> Lab Results 05/19/24 05/19/24 05/19/24 Range/Units 07:15 08:03 09:23 WBC 9.53 (4.50-11.00) K/uL RBC 3.88 L (4.00-5.20) m/uL Hgb 11.2 L (12.0-16.0) gm/dL Hct 35.7 (33.0-51.0) % MCV 92 (80-100) fL MCH 29 (26-34) pg MCHC 31 L (32-36) gm/dL RDW Coeff of Moshe 16.2 H (11.5-15.5) % Plt Count 206 (140-440) K/uL Neut % (Auto) 71.1 (42.0-72.0) % Lymph % (Auto) 19.4 L (20-44) % Brooks % (Auto) 7.7 (0.0-11.0) % Eos % (Auto) 1.6 (0.0-7.0) % Baso % (Auto) 0.1 (0.0-3.0) % Neut # (Auto) 6.78 (1.7-7.0) K/uL Lymph # (Auto) 1.80 (0.90-2.90) K/uL Brooks # (Auto) 0.70 (0.00-0.90) K/UL Eos # (Auto) 0.15 (0.00-0.50) K/uL Baso # (Auto) 0.01 (0.00-0.30) K/uL Abs Immat Gran (auto) 0.01 (0.00-0.30) K/uL Imm/Tot Granulo (auto) 0.1 % D-Dimer Quant (PE/DVT) 2.32 H (0.00-0.50) ug/ml Sodium 140 (135-149) mmol/L Potassium 4.4 (3.6-5.1) mmol/L Chloride 107 (96-114) mmol/L Carbon Dioxide 23 (20-32) mmol/L Anion Gap 10 (7-15) mEq/L BUN 46 H (5-24) mg/dL Creatinine 2.3 H (0.5-1.5) mg/dL Estimated Creat Clear 33.06 Estimated GFR 29 ml/min Glucose 115 (60-115) mg/dL Calcium 9.6 (8.4-10.6) mg/dL Total Bilirubin 0.8 (0.1-1.5) mg/dL AST 65 H (12-35) U/L ALT 70 H (4-35) U/L Alkaline Phosphatase 316 H (40-150) U/L NT-Pro-B Natriuret Pep 256 pg/mL Total Protein 8.0 (6.0-8.3) g/dL Albumin 4.4 (3.3-5.0) g/dL Lipase 294 (23-300) U/L Urine Color Yellow (Yellow) Urine Appearance Clear (Clear) Urine pH 7.0 (5.0-8.5) Ur Specific [place] 1.010 (1.000-1.030) Urine Protein 2+ A (Negative) Urine Glucose (UA) Negative (Negative) Urine Ketones Negative (Negative) Urine Blood Negative (Negative) Urine Nitrite Negative (Negative) Urine Bilirubin Negative (Negative) Urine Urobilinogen 0.2 (0.2-1.0) Ur Leukocyte Esterase Negative (Negative) Urine RBC 0-2 (0-2) Urine WBC 0-2 (0-5) Ur Squamous Epith Cells Few (None-Few) Urine Bacteria Few A (None) POC Troponin I 0.01 (0.01-0.04) ng/ml <Joe Harrison MD - Last Filed: 05/19/24 21:52> Imaging Data CT scan - chest: Attestation: I have reviewed the pertinent imaging results. <Joe Harrison MD - Last Filed: 05/19/24 21:52> Radiologist's impression: IMPRESSION: 1. 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 This is not a new finding. 2. No central pulmonary emboli. Contrast bolus timing limited by SVC stenosis. 3. Small area of consolidation in the left lower lobe may be pneumonia. <Joe Harrison MD - Last Filed: 05/19/24 21:52> CT scan - abdomen: Attestation: I have reviewed the pertinent imaging results. <Joe Harrison MD - Last Filed: 05/19/24 21:52> Radiologist's impression: IMPRESSION: 1. No acute intraabdominal or pelvic abnormality. 2. Left lower lobe opacity may reflect pneumonia in the appropriate clinical setting. <Joe Harrison MD - Last Filed: 05/19/24 21:52> ECG Data Attestation: I personally reviewed and interpreted this ECG as follows: <Jinny Back MD - Last Filed: 05/21/24 00:08> Prior ECG tracings: available for review <Jinny Back MD - Last Filed: 05/21/24 00:08> Interpretation: Normal sinus rhythm, rate 75. No significant ST or T-wave abnormalities. Normal intervals and axis. Normal EKG, unchanged from multiple prior. <Jinny Back MD - Last Filed: 05/21/24 00:08> Discharge Plan Discharge Clinical Impression: Pneumonia, Superior vena caval stenosis, Abdominal pain, epigastric, Abnormal LFTs <Jinny Back MD - Last Filed: 05/21/24 00:08> Patient Disposition: Home w/ Parent or Adult <Jinny Back MD - Last Filed: 05/21/24 00:08> Condition: Stable <Jinny Back MD - Last Filed: 05/21/24 00:08> Instructions: Pneumonia (ED), Epigastric Pain (ED) <Jinny Back MD - Last Filed: 05/21/24 00:08> Additional Instructions: As we discussed please come back to the ER right away if you have worsening pain in your chest, trouble breathing, worsening abdominal pain, or any problems. Your CT scan shows an area of pneumonia in your left lung. Please take the antibiotic twice daily for a week to treat the pneumonia. Her laboratory workup shows that you have mildly abnormal liver function tests. Please recheck with your regular doctor to have your liver function retested within 1-[address] scan shows that the vein returning blood to your heart from your head and arms is narrow were than normal. Right now you do not need any treatment for this. However you have worsening headaches, swelling in your arms, or any problems, see your regular doctor and they will refer you to a vascular surgeon for evaluation. <Jinny Back MD - Last Filed: 05/21/24 00:08> Prescriptions: New doxycycline hyclate 100 mg capsule 100 mg PO BID Qty: 14 0RF No Action triamcinolone acetonide 0.1 % cream 1 applic topical QDAY PRN (Reason: chest scars) ciprofloxacin HCl 0.3 % drops See Rx Instructions ophthalmic (eye) .COMPLEX Qty: 10 0RF Rx Instructions: put 1-2 drps in affected eye(s) every 2hr up to 8 times/day x2days; then 4 times/day x5days ophthalmic (eye) lactulose PO simethicone [Gas Relief Extra Strength] 125 mg capsule PO albuterol sulfate [Ventolin HFA] 90 mcg/actuation HFA aerosol inhaler 1 inh inhalation Q4H PRN emollient [Vanicream] Cream 1 applic topical Q6H PRN polyethylene glycol 3350 [Gavilax] 17 gram/dose powder 17 g PO BID PRN Incruse Ellipta 62.5 mcg/actuation blister with device 1 inh INHALATION DAILY hyoscyamine sulfate [Levsin] 0.125 mg tablet 0.125 mg PO Q4-6H PRN Rx Instructions: 1-2tabs prn icosapent ethyl [Vascepa] 1 gram capsule 1 g PO BID sennosides-docusate sodium [Senexon-S] 8.6-50 mg tablet 1 tab-cap PO BID albuterol sulfate 2.5 mg /3 mL (0.083 %) solution for nebulization 2.5 mg inhalation Q4H PRN fluticasone propion-salmeterol [Advair Diskus] 100-50 mcg/dose blister with device 1 inh inhalation BID gabapentin 300 mg capsule 300 mg PO Q12H clozapine 100 mg tablet 100 mg PO BID montelukast [Singulair] 10 mg tablet 10 mg PO QHS divalproex 500 mg tablet extended release 24 hr 1,000 mg PO BID atorvastatin 40 mg tablet 40 mg PO DAILY olanzapine 5 mg tablet 5 mg PO Q4H PRN Patient Comments: am (DME) Accu-Chek Guide test strips Strip MISCELLANEOUS Patient Comments: USE TO TEST TWICE DAILY tramadol 50 mg tablet 50 mg PO BID PRN acetaminophen 500 mg tablet 500 mg PO BID PRN levothyroxine 100 mcg tablet 100 mcg PO DAILY (DME) lancets [Accu-Chek Fastclix Lancet Drum] Misc MISCELLANEOUS Patient Comments: USE DIRECTED amlodipine 10 mg tablet 10 mg PO DAILY calcium carbonate [Calcium Antacid] 200 mg calcium (500 mg) tablet,chewable 500 mg PO BID PRN fluoxetine 10 mg capsule 30 mg PO DAILY olanzapine 15 mg tablet 15 mg PO HS gabapentin 100 mg capsule 300 mg PO DAILY fluticasone propion-salmeterol [Advair Diskus] 100-50 mcg/dose blister with device 1 inh INHALATION Q12H albuterol sulfate 90 mcg/actuation HFA aerosol inhaler 1 - 2 puff INHALATION TID PRN loratadine [Allergy Relief (loratadine)] 10 mg tablet 10 mg PO DAILY cholecalciferol (vitamin D3) 25 mcg (1,000 unit) capsule 25 mcg PO DAILY cyclobenzaprine 5 mg tablet 5 mg PO Q8H PRN Trulicity 1.5 mg/0.5 mL pen injector 1.5 mg SUBCUT QWEEK pantoprazole 40 mg tablet,delayed release (DR/EC) 40 mg PO DAILY sucralfate 1 gram tablet 1 g PO BID urea 20 % cream 1 applic TOPICAL DAILY melatonin 5 mg capsule 5 mg PO HS PRN calcitriol 0.25 mcg capsule 0.25 mcg PO DAILY glycerin (adult) [Fleet Glycerin (Adult)] Suppository 1 supp OR DAILY PRN propranolol 60 mg tablet 60 mg PO QHS Patient Comments: hold if pulse is below 65 (DME) Walker- 2 Wheels Misc See Rx Instructions .Route Qty: 1 0RF Rx Instructions: As directed <Jinny Back MD - Last Filed: 05/21/24 00:08> Follow Up/Referrals: Provider,Not a Local [Primary Care Provider] - <Jinny Back MD - Last Filed: 05/21/24 00:08> Stand Alone Forms: MyHealth Info Instructions <Jinny Back MD - Last Filed: 05/21/24 00:08>
--- OUTSIDE RECORDS SUMMARY | 2024-05-19 07:37 | XMS_ITS | Clinical Summary ---
Author Organization [facility] Address [place], [place] [address] Care Team Providers Care Roller Skate Repairer Name Role Phone Fatimah Tavares DPM Unavailable [phone] Mandie Powell MD Unavailable [phone] Finesse Salomon MD Unavailable [phone] Lynne Caban MD Unavailable [phone] Cinda Lenz NP Unavailable [phone] Anastasiia Arenas PA-C Unavailable [phone] Stephy Coles DO Primary Care Provider [phone] Allergies Active Allergy Reactions Criticality Noted Date Comments Amoxicillin Hives Medium 11/23/2005 Medroxyprogesterone Other - Describe In Comment Field 05/15/2024 weight gain Ziprasidone Ataxia,Muscle Weakness Medium 11/23/2005 L Movico Renal Failure 05/10/2015 Nsaids (Non-Steroidal Anti-Inflammatory Drug) [...] Shortness of breath or wheezing. 1 Each 1 Active CPAPIndications:DEBRA (obstructive sleep apnea) CPAP [...] 2 diabetes mellitus without complication, unspecified whether custodial insulin use (HC),Peripheral polyneuropathy,Pes planus, unspecified laterality,Equinus contracture of ankle Extra depth diabetic shoes, 3 pair tri layer accommodative inserts 1 Each 2 Active Advair Diskus 100-50 mcg/dose diskus inhaler 2 Active Shower ChairIndications:Le g weakness, bilateral For home use. 1 Each 2 Active cholecalciferol (VITAMIN D3) 1,000 unit capsule [...] 3 Active haloperidoL (HALDOL) 2 mg tablet Take 4 mg by mouth every 6 hours if needed for Agitation. 3 Active Accu-Chek Fastclix Lancet DrumIndications:Typ e [...] A WEEK 2 mL 5 4 Active Simethicone 125 mg capsuleIndications: Gassiness Take 1 Capsule (125 mg) by mouth 4 times daily if needed for Flatulence. Max dose: 500 mg per 24 hrs 90 Capsule 2 4 Active traMADoL (ULTRAM) 50 mg tabletIndications:A bdominal pain, RUQ (right upper quadrant) Take 1 Tablet (50 mg) by mouth every 6 hours if needed for Pain. 8 Tablet 2 4 Active FLUoxetine (PROZAC) 20 mg capsule Take 40 mg by mouth every morning. 4 Active divalproex (DEPAKOTE) 500 mg Delayed-Release tablet Take 500 mg by mouth two times daily. Active LORazepam (ATIVAN) 0.5 mg tabIndications:Auti sm spectrum disorder 1 tab PO 30 minutes before procedure. may repeat if still anxious. 2 Tablet 4 Active norethindrone, Contraceptive, (MICRONOR, 28,) 0.35 mg tabletIndications:M enorrhagia with irregular cycle Take 1 Tablet (0.35 mg) by mouth once daily. 28 Tablet 12 4 05/13/20 24 Discontinu ed(*Med complete/R egimen complete/L evel of care change) medroxyPROGESTERone acetate, contraceptive, (DEPO-PROVERA) 150 mg/mL injectionIndication s:Depot contraception Inject 150 mg intramuscular every 3 months. 1 mL 4 05/13/20 24 Discontinu ed(*Error/ carpentry professional error) Hospital, Clinic, or Other Facility Administered Medication Ordered Dose Route Frequency Start Date End Date Status darbepoetin eric (ARANESP) 100 mcg/0.5 mL in polysorbate syringeIndications: Chronic kidney disease, stage IV (severe) (),Anemia, chronic renal failure, unspecified stage 100 mcg SubQ ONE TIME 05/07/2024 4 Ended medroxyPROGESTERone acetate (contraceptive) (DEPO-PROVERA) injection 150 mgIndications:Depot contraception 150 mg IM Q 3 MONTHS (12 WEEKS) 05/14/2024 4 Discontinued Active Problems Problem Noted Date Diagnosed Date Abdominal pain, RUQ (right upper quadrant) 04/08 Platelets decreased 03/07/2024 Pap smear for cervical [...] 04/29/2018 Type 2 diabetes mellitus without complication 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 Constipation 09/12/2013 Low back pain [...] lithium toxicity Jun 2012, dialysis MWF at [facility] Encounters Date Type Department Care Team Description 05/15/[address] [place] [address] Stephy Coles DO 05/15/[address] [address] Stephy Coles DO Medication Management ( Control ) 05/13/2024 12:45 PM CDT Office Visit [address] [address] Stephy Coles DO Consult (Patient has had some recent labs done through psychiatrist ) 05/13/2024 Travel 05/07/2024 9:30 AM CDT Office Visit [address] [address] Jaclyn Loja MD Follow Up (1 MNTH ll Anemia causing bruise??); Immunization/Injectio n (100mcg Aranesp pended, please sign if appropriate/Aranesp-l ast dose 100) 05/07/2024 Travel 04/30/2024 Orders Only [address] [address] Jaclyn Loja MD Lab (Aranesp Orders) 04/23/[address] [address] Stephy Coles DO Questions (IUD INSERTION ) 04/17/[address] [address] Stephy Coles DO Refill Request (LORazepam (ATIVAN) 0.5 mg tab/) 04/09/2024 9:30 AM CDT Office Visit [facility] [address] [place], [place] [address] [address] 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 Follow Up (1 month, renal); Medication Management; Immunization/Injectio n (Aranesp) 04/09/2024 Travel 04/05/2024 Travel 04/02/2024 Orders Only [address] [address] Cinda Lenz NP Lab (Aranesp Orders) 04/01/[address] [address] Stephy Coles DO Refill Request (Tramadol) 2024 Orders Only [facility] Scanner 1 scan: (1-Ord) INCOMING RECORDS-SLEEP STUDY, [facility], 2024 2024 Orders Only [facility] Scanner 1 scan: (1-Ord) INCOMING RECORDS-PFT, [facility], 2024 03/13/[address] [phone] Stephy Coles, Form 03/12/[address] [address] Stephy Coles DO Lab results 03/05/2024 10:30 AM CDT Ancillary Procedure [facility] [address] [place] [address] 03/05/[address] [address] Stephy Coles DO Refill Request (Lactulose 15mml) 03/05/2024 Orders Only [facility] [address] [place] [address] Jaclyn Banks PA 1 scan: (1-Ord) EKG-NFLD-03/04/24 03/05/[address] [address] Stephy Coles DO Error-please disregard 03/05/2024 Telephone [facility] [address] [place] [address] Jaclyn Banks Results 03/04/2024 1:10 PM CDT Office Visit [facility] [address] [place] [address] Jaclyn Banks PA Abdominal Pain (With some chest pain and low back pain-also vaginal odor, hurts to urinate-started a few days ago) 03/04/2024 Travel 03/03/2024 10:30 AM CDT Office Visit [address] [address] 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 Fax back to Byron @ ) 02/25/2024 Orders Only [address] [address] Cinda Lenz, CLAUDIA Lab (Aranesp Orders) from Last 3 Months Immunizations Name Administration Dates Next Due COVID-19 Vaccine Spikevax (M oderna 50mcg/0.5mL) 12YO+ Formula PF 01/08/2024 DTaP 03/28/2002, 8,1997,07/17,1997 HIB [...] Sign Reading Time Taken Comments Blood Pressure 112/80 05/13/2024 12:54 PM CDT Pulse 104 05/13/2024 12:54 PM CDT Temperature 36.5 ??C (97.7 ??F) 10/29/2023 8:45 AM CS T Respiratory Rate 12 02/05/2024 11:5 9 AM CDT Oxygen Saturation 96% 03/04/2024 1:23 PM CDT Inhaled Oxygen Concentration - - Weight 109.1 kg (240 lb 8 oz) 12:54 PM CDT with shoes Height 167 cm (5' 5.75) 10/29/2023 8:45 AM PEN RIDER Body Mass Index 39.11 10/29/2023 8:45 AM PEN RIDER Plan of Treatment Upcoming Encounters Date Type Department Care Team (Late st Contact Info) Description 06/11/2024 11:00 AM CDT Office Visit [facility] [address] [address] Cinda Lenz NP [address] [address] 06/26/2024 1:00 PM CDT Office Visit [facility] [address] [place] [address] Nima Puri MD [address] [place] [address] 06/26/2024 3:10 PM CDT Office Visit [address] [phone] Stephy Coles DO [address] [place] [address] 08/04/2024 11:00 AM CDT Office Visit [address] [phone] Jorge Wilkes MD [address] [place] [address] Health Maintenance Due Date Last Done Comments COVID-19 vaccine series ( season) 2024 01/08/2024, [...] (Verified in Care Everywhere or Patient Record) Hepatitis B series for Diabetes Completed 03/11/2014, 03/11/2014, 03/11/2014, Additional history exists Tdap Completed 04/30/2017, 08/12/2008 Hepatitis C screening for ag e 18-79 Completed 05/25/2023 HIV for age 15-65 Completed 10/01/2023 Pneumococcal series for age 6-64 Completed 12/04/2023, 08/20/2013, 07/23/2012 Medical Devices Implanted Type Area Inspector Packer Device Identifier Shelf Expiration Date Model / Serial / Lot [facility] [id number] - [id number] Implanted:Qty: 1 on 05/10/2015 by Sandy Miranda MD at [facility] N/A: Uterus 12/25/2020 [facility] [id number] Description:Paragard IUD [facility] 96876-408-41. lot# [id number] Procedures Procedure Name Priority Date/Time Associated Diagnosis Comments PROTIME-INR Routine 05/13/2024 2:05 PM CDT Elevated liver enzymes Easy bruising LIPASE Routine 05/13/2024 2:05 PM CDT Elevated lipase HEMOGLOBIN A1C Routine 05/13/2024 2:05 PM CDT Type 2 diabetes mellitus with chronic kidney disease, without long-term current use of insulin, unspecified CKD stage (HC) HEMOGLOBIN STAT 05/07/2024 9:41 AM CDT Chronic kidney disease, stage IV (severe) (HC) Anemia, chronic renal failure, unspecified stage PHOSPHORUS Routine 04/09/2024 9:30 AM CDT Chronic kidney disease, stage IV (severe) (HC) PTH,INTACT Routine 04/09/2024 9:30 AM CDT Chronic kidney disease, stage IV (severe) (HC) VITAMIN D 25 (DEFICIENCY) Routine 04/09/2024 9:30 AM CDT Chronic kidney disease, stage IV (severe) (HC) IRON PLUS IRON BINDING CAP Routine 04/09/2024 9:30 AM CDT Anemia, chronic renal failure, unspecified stage HEMOGLOBIN STAT 04/09/2024 9:30 AM CDT Chronic kidney disease, stage IV (severe) (HC) Anemia, chronic renal failure, unspecified stage FERRITIN Routine 04/09/2024 9:30 AM CDT Anemia, chronic renal failure, unspecified stage BASIC METABOLIC PANEL Routine 04/09/2024 9:30 AM CDT Chronic kidney disease, stage IV (severe) (HC) SCAN CORRESP-DIAGNOSTICS 2024 12:00 AM CDT [facility] 2024 12:00 AM CDT EKG 12 LEAD Routine 03/05/2024 1:00 PM CDT Tachycardia [place] READING EKG - NO CHARGE, COMP ONLY Routine 03/05/2024 12:[address] ABDOMEN PELVIS WO ELKE 03/05/2024 11:06 AM CDT Right sided abdominal pain Elevated lipase Elevated liver enzymes Upper abdominal pain URINALYSIS MICROSCOPIC Routine 03/04/2024 2:12 PM CDT Right sided [...] Chronic kidney disease, stage IV (severe) (HC) HPV THIN PREP Routine 02/05/2024 1:44 PM CDT Cervical cancer screening ANTI HIV 1/2 Routine 10/01/2023 3:18 PM PEN RIDER Screen for STD (sexually transmitted disease) LC HCV ANTIBODY RFX TO QUANT PCR Routine 05/25/2023 2:07 PM CDT Encounter for hepatitis C screening test for low risk patient from Last 3 Months or Most Recently Relevant to Health Maintenance Results * PROTIME-INR (05/13/2024 2:05 PM CDT) INR 1.0 <1.3 05/13/2024 3:31 PM CDT [facility] PROTIME 11.3 10.3 - 12.3 sec 05/13/2024 3:31 PM CDT [facility] Blood BLOOD SPECIMEN / Unknown Butterfly / Unknown 05/13/2024 2:05 PM CDT 05/13/2024 2:06 PM CDT Narrative [facility] - 05/13/2024 3:31 PM CDT ?Therapeutic Range 2.0-3.0 for most anticoagulated patients 2.5-3.5 or 4.0 for high risk patients The INR is only used for patients on stable oral anticoagulant therapy. It makes no significant contribution to the diagnosis or treatment of patients whose Protime is prolonged for other reasons. INR results are increased when heparin levels exceed 1.0 U/mL, which corresponds to an aPTT >125 seconds if the patient is on UFH. Stephy Coles DO HEMATOLOGY Performing Organization Address [facility] Co de Phone Number [facility] [address] [place] [address] * (ABNORMAL) LIPASE (05/13/2024 2:05 PM CDT) Only the most recent of2 resultswithin the time period is included. LIPASE 68.9(H) 13.0 - 60.0 IU/L 05/13/2024 3:50 PM CDT [facility] Blood BLOOD SPECIMEN / Unknown Butterfly / Unknown 05/13/2024 2:05 PM CDT 05/13/2024 2:06 PM CDT Stephy Coles DO CHEMISTRY Performing Organization Address [facility]/ZIP Co de Phone Number [facility] [address] [place] [address] * HEMOGLOBIN A1C MONITORING (POCT) (05/13/2024 2:05 PM CDT) HEMOGLOBIN A1C MONITORING (POCT) 5.3 <=6.4 % 05/13/2024 3:32 PM CDT [facility] Blood BLOOD SPECIMEN / Unknown Butterfly / Unknown 05/13/2024 2:05 PM CDT 05/13/2024 2:06 PM CDT Narrative [facility] - 05/13/2024 3:32 PM CDT ? (<=6.9%) ? Indicates good control ? (7.0% to 7.9%) ? Indicates fair control ? (>=8.0%) ? Indicates poor control ?? NOTE: ??These thresholds are guidelines and ?individual targets may vary. Falsely low levels may be seen with: Recent Transfusion, Recent Significant Blood Loss, Hemolytic Diseases, or Falsely elevated levels may be seen with: Untreated Anemias, Splenectomy ? Stephy Coles DO CHEMISTRY Performing Organization Address City/[facility]/ZIP Co de Phone Number [facility] [address] [place], [place] [id number] * (ABNORMAL) HEMOGLOBIN (05/07/2024 9:41 AM CDT) Only the most recent of3 resultswithin the time period is included. HEMOGLOBIN 10.2(L) 12.0 - 16.0 g/dL 05/07/2024 9:45 AM CDT [facility] MCV 94 80 - 100 fL 05/07/2024 9:45 AM CDT [facility] Blood BLOOD SPECIMEN / Unknown Butterfly / Unknown 05/07/2024 9:41 AM CDT 05/07/2024 9:41 AM CDT Jaclyn Loja MD HEMATOLOGY Performing Organization Address City/[facility]/ZIP Co de Phone Number [facility] [address] [place] [address] * VITAMIN D 25 (DEFICIENCY) (04/09/2024 9:30 AM CDT) VITAMIN D TOTAL 46.5 20.0 - 80.0 ng/mL 04/10/2024 1:50 AM CDT [facility] Blood BLOOD SPECIMEN / Unknown Butterfly / Unknown 04/09/2024 9:30 AM CDT 04/09/2024 9:30 AM CDT Narrative [facility] - 04/10/2024 1:50 AM CDT ? Vitamin D Status Deficiency: ? <20 ng/mL Insufficiency: ?20-29 ng/mL Sufficiency: ?30-80 ng/mL Possible Toxicity: ??>80 ng/mL Based on [place] of Medicine recommendations Biotin supplements may cause clinically significant interference for this test assay. ??If interference is suspected, it is strongly recommended that biotin is discontinued for at least one week prior to retesting. Cinda Lenz NP SEND OUTS Performing Organization Address [facility] de Phone Number [facility] [address] [place] [address], * IRON PLUS IRON BINDING CAP (04/09/2024 9:30 AM CDT) IRON 85 37 - 145 ug/dL 04/09/2024 10:09 PM CDT [facility] UIBC (UNSATURATED) 225 112 - 347 ug/dL 04/09/2024 10:09 PM CDT [facility] IRON BINDING CAPACITY 310 250 - 400 ug/dL 04/09/2024 10:09 PM CDT [facility] IRON,% SATURATION 27 14 - 50 % 04/09/2024 10:09 PM CDT [facility] Blood BLOOD SPECIMEN / Unknown Butterfly / Unknown 04/09/2024 9:30 AM CDT 04/09/2024 9:30 AM CDT Cinda Lenz NP CHEMISTRY Performing Organization Address [facility] Co de Phone Number [facility] [address] [place] [address], * PHOSPHORUS (04/09/2024 9:30 AM CDT) PHOSPHORUS 4.0 2.5 - 4.5 mg/dL 04/09/2024 10:32 AM CDT [facility] Blood BLOOD SPECIMEN / Unknown Butterfly / Unknown 04/09/2024 9:30 AM CDT 04/09/2024 9:30 AM CDT Cinda Lenz NP CHEMISTRY Performing Organization Address City/[facility]/ZIP Co de Phone Number [address] [address] * PTH,INTACT (04/09/2024 9:30 AM CDT) CALCIUM 9.3 8.6 - 10.0 mg/dL 04/09/2024 10:37 PM CDT [facility] PTH,INTACT 49.2 15.0 - 69.0 pg/mL 04/09/2024 10:37 PM CDT [facility] Blood BLOOD SPECIMEN / Unknown Butterfly / Unknown 04/09/2024 9:30 AM CDT 04/09/2024 9:30 AM CDT Cinda Lenz NP SEND OUTS Performing Organization Address [facility] Co wi Phone Number [facility] [address] [place] [address], * (ABNORMAL) FERRITIN (04/09/2024 9:30 AM CDT) FERRITIN 230.0(H) 15.0 - 150.0 ng/mL 04/09/2024 10:09 PM CDT [facility] Blood BLOOD SPECIMEN / Unknown Butterfly / Unknown 04/09/2024 9:30 AM CDT 04/09/2024 9:30 AM CDT Cinda Lenz NP CHEMISTRY Performing Organization Address City/[facility]/ZIP Co de Phone Number [facility] [address] [place] [address], * (ABNORMAL) BASIC METABOLIC PANEL (04/09/2024 9:30 AM CDT) Only the most recent of2 resultswithin the time period is included. SODIUM 141 136 - 145 mmol/L 04/09/2024 10:32 AM CDT [facility] POTASSIUM 5.1 3.5 - 5.1 mmol/L 04/09/2024 10:32 AM CDT [facility] CHLORIDE 105 98 - 107 mmol/L 04/09/2024 10:32 AM CDT [facility] CO2,TOTAL 24 22 - 29 mmol/L 04/09/2024 10:32 AM CDT [facility] ANION GAP 12 5 - 18 04/09/2024 10:32 AM CDT [facility] GLUCOSE 162(H) 70 - 99 mg/dL 04/09/2024 10:32 AM CDT [facility] CALCIUM 9.5 8.6 - 10.0 mg/dL 04/09/2024 10:32 AM CDT [facility] BUN 49(H) 6 - 20 mg/dL 04/09/2024 10:32 AM CDT [facility] CREATININE 2.93(H) 0.50 - 0.90 mg/dL 04/09/2024 10:32 AM T [facility] BUN/CREAT RATIO 17 10 - 20 10:32 AM T [facility] eGFR 22(L) >90 mL/min/1.7 3m2 04/09/2024 10:32 AM T [facility] Comment:As of 2022, eG FR is calculated by the CKD-EPI creatinine equation without race adjustment. ??eGFR can be influenced by muscle mass, exercise, and diet. ??The reported eGFR is an estimation only and is only applicable if the renal function is stable. Blood BLOOD SPECIMEN / Unknown Butterfly / Unknown 04/09/2024 9:30 AM CDT 04/09/2024 9:30 AM CDT Cinda Lenz NP CHEMISTRY [facility] [address] [place] [address] * SCAN CORRESP-DIAGNOSTICS (2024 12:00 AM CDT) Scanner OTHER * SCAN CORRESP-DIAGNOSTICS (2024 12:00 AM CDT) Scanner OTHER * EKG 12 LEAD (03/05/2024 1:00 PM CDT) Jaclyn TAI EKG ORD * [place] READING EKG - NO CHARGE, COMP ONLY [...] For Patients: ??As a result of the 21st Century Cures Act, medical imaging exams and [...] For Patients: As a result of the 21st Century Cures Act, medical imagingexams and procedure [...] None Seen /HPF 03/04/2024 2:24 PM CDT [facility] WBC None Seen 0-2, 3-5, None Seen /HPF 03/04/2024 2:24 PM CDT [facility] BACTERIA None Seen None Seen, Rare, Few Bacteria/ HPF 03/04/2024 2:24 PM CDT [facility] EPITHELIAL CELLS Few None Seen, Few Epi/HPF 03/04/2024 2:24 PM CDT [facility] Urine URINE SPECIMEN / Unknown Non-Blood / Unknown 03/04/2024 2:12 PM CDT 03/04/2024 2:12 PM CDT Jaclyn TAI URINE [facility] [address] [place] [address], * (ABNORMAL) UA W/ SEDIMENT EXAM REFLEXED PER CRITERIA (03/04/2024 2:12 PM CDT) COLOR Yellow Yellow Color 03/04/2024 2:24 PM CDT [facility] CLARITY Clear Clear Clarity 03/04/2024 2:24 PM CDT [facility] SPECIFIC GRAVITY,URINE 1.010 1.010, 1.015, 1.020, 1.025 03/04/2024 2:24 PM CDT [facility] PH,URINE 6.5 6.0, 7.0, 8.0, 5.5, 6.5, 7.5, 8.5 03/04/2024 2:24 PM CDT [facility] UROBILINOGEN, QUALITATIVE Normal Normal EU/dl 03/04/2024 2:24 PM CDT [facility] PROTEIN, URINE 100(A) Negative mg/dL 03/04/2024 2:24 PM CDT [facility] GLUCOSE, URINE Negative Negative mg/dL 03/04/2024 2:24 PM CDT [facility] KETONES,URINE Negative Negative mg/dL 03/04/2024 2:24 PM CDT [facility] BILIRUBIN,URI NE Negative Negative 03/04/2024 2:24 PM CDT [facility] OCCULT BLOOD,URINE Trace(A) Negative 03/04/2024 2:24 PM CDT [facility] NITRITE Negative Negative 03/04/2024 2:24 PM CDT [facility] LEUKOCYTE ESTERASE Negative Negative 03/04/2024 2:24 PM CDT [facility] Urine URINE SPECIMEN / Unknown Non-Blood / Unknown 03/04/2024 2:12 PM CDT 03/04/2024 2:12 PM CDT Jaclyn TIA URINE [facility] [address] [place] [address], [place] [phone] * CWS PATH REVIEW HEMATOLOGY (03/04/2024 2:11 PM CDT) PATH COMMENT Comment 03/08/2024 8:24 AM CDT [facility] Comment: Recommend evaluation for iron deficiency. Acanthocytes present, may be associated with renal and/or liver insuffiencey. Reviewed by Betty Mejia MT, MS ([facility]) on 03/07/2024 Blood BLOOD SPECIMEN / Unknown Capillary / Unknown 03/04/2024 2:11 PM CDT 03/04/2024 2:11 PM CDT Jaclyn TAI LABORATORY [facility] [address] [place] [address], [place] * (ABNORMAL) CBC WITH AUTO DIFFERENTIAL (03/04/2024 2:11 PM CDT) WHITE BLOOD COUNT 7.5 4.5 - 11.0 thou/cu mm 03/04/2024 10:10 PM CDT [facility] RED BLOOD COUNT 3.25(L) 4.00 - 5.20 mil/cu mm 03/04/2024 10:10 PM CDT [facility] HEMOGLOBIN 10.0(L) 12.0 - 16.0 g/dL 03/04/2024 10:10 PM CDT [facility] HEMATOCRIT 31.0(L) 33.0 - 51.0 % 03/04/2024 10:10 PM CDT [facility] MCV 95 80 - 100 fL 03/04/2024 10:10 PM CDT [facility] MCH 30.8 26.0 - 34.0 pg 03/04/2024 10:10 PM CDT [facility] MCHC 32.3 32.0 - 36.0 g/dL 03/04/2024 10:10 PM CDT [facility] RDW 17.7(H) 11.5 - 15.5 % 03/04/2024 10:10 PM CDT [facility] PLATELET COUNT 148 140 - 440 thou/cu mm 03/04/2024 10:10 PM CDT [facility] MPV 10.9 6.5 - 11.0 fL 03/04/2024 10:10 PM CDT [facility] NRBC 0.0 % 03/04/2024 10:10 PM CDT [facility] LABORATORY-[facility] ABS NRBC 0.0 thou /cu mm 03/04/2024 10:10 PM CDT [facility] % NEUT 47.6 % 03/04/2024 10:10 PM CDT [facility] % LYMPH 32.7 % 03/04/2024 10:10 PM CDT [facility] % MONO 14.1 % 03/04/2024 10:10 PM CDT [facility] % EOS 3.6 % 03/04/2024 10:10 PM CDT [facility] % BASO 0.5 % 03/04/2024 10:10 PM CDT [facility] % IMMATURE GRAN (METAS,MYELOS,UT OS) 1.5 % 03/04/2024 10:10 PM CDT [facility] ABSOLUTE NEUTROPHILS 3.6 1.7 - 7.0 thou/cu mm 03/04/2024 10:10 PM CDT [facility] ABSOLUTE LYMPHOCYTES 2.5 0.9 - 2.9 thou/cu mm 03/04/2024 10:10 PM CDT [facility] LAB[facility] ABSOLUTE MONOCYTES 1.1(H) <0.9 thou/cu mm 03/04/2024 10:10 PM CDT [facility] ABSOLUTE EOSINOPHILS 0.3 <0.5 thou/cu mm 03/04/2024 10:10 PM CDT [facility] ABSOLUTE BASOPHILS 0.0 <0.3 thou/cu mm 03/04/2024 10:10 PM CDT [facility] ABSOLUTE IMMATURE GRANULOCYTES(MET ,MYELOS,PROS) 0.1 <0.3 thou/cu mm 03/04/2024 10:10 PM CDT [facility] Blood BLOOD SPECIMEN / Unknown Capillary / Unknown 03/04/2024 2:11 PM CDT 03/04/2024 2:11 PM CDT Jaclyn TAI HEMATOLOGY [facility] [address] [place] [address], [address] [address], * (ABNORMAL) RED CELL MORPHOLOGY (03/04/2024 2:11 PM CDT) ACANTHOCYTES Many 03/04/2024 10:10 PM CDT [facility] ELLIPTOCYTES Moderate 03/04/2024 10:10 PM CDT [facility] SCHISTOCYTES Few 03/04/2024 10:10 PM CDT [facility] RBC COMMENT Present(A) RBC morphology appears normal, RBC morphology within normal limits for newborns. 03/04/2024 10:10 PM CDT [facility] Blood BLOOD SPECIMEN / Unknown Capillary / Unknown 03/04/2024 2:11 PM CDT 03/04/2024 2:11 PM CDT Jaclyn TAI HEMATOLOGY Performing Organization Address [facility] Co de Phone Number [facility] [address] [address], [place] * PLATELET ESTIMATE (03/04/2024 2:11 PM CDT) Pathologist [facility] PLATELET ESTIMATE Adequate Adequate, No estimate 03/04/2024 10:10 PM CDT [facility] Blood BLOOD SPECIMEN / Unknown Capillary / Unknown 03/04/2024 2:11 PM CDT 03/04/2024 2:11 PM CDT Jaclyn TAI HEMATOLOGY Performing Organization Address [facility] Co de Phone Number [facility] [address] [place] [address], [place] * (ABNORMAL) C-REACTIVE PROTEIN (03/04/2024 2:11 PM CDT) Pathologist [facility] C-REACTIVE PROTEIN 0.7(H) <0.5 mg/dL 03/04/2024 9:36 PM CDT [facility] Blood BLOOD SPECIMEN / Unknown Venipuncture / Unknown 03/04/2024 2:11 PM CDT 03/04/2024 2:12 PM CDT Jaclyn TAI CHEMISTRY Performing Organization Address [facility] Co de Phone Number [facility] [address] [place] [address], [place] * (ABNORMAL) COMP METABOLIC PANEL (03/04/2024 2:11 PM CDT) Pathologist [facility] SODIUM 140 136 - 145 mmol/L 03/04/2024 9:36 PM CDT [facility] POTASSIUM 4.5 3.5 - 5.1 mmol/L 03/04/2024 9:36 PM CDT [facility] CHLORIDE 102 98 - 107 mmol/L 03/04/2024 9:36 PM T [facility] CO2,TOTAL 25 22 - 29 mmol/L 03/04/2024 9:36 PM T [facility] ANION GAP 13 5 - 18 03/04/2024 9:36 PM [facility] GLUCOSE 108(H) 70 - 99 mg/dL 03/04/2024 9:36 PM T [facility] CALCIUM 9.5 8.6 - 10.0 mg/dL 03/04/2024 9:36 PM [facility] BUN 41(H) 6 - 20 mg/dL 03/04/2024 9:36 PM [facility] CREATININE 3.02(H) 0.50 - 0.90 mg/dL 03/04/2024 9:36 PM [facility] BUN/CREAT RATIO 14 10 - 20 9:36 PM [facility] eGFR 21(L) >90 mL/min/1.7 3m2 03/04/2024 9:36 PM [facility] Comment:As of 2022, eG FR is calculated by the CKD-EPI creatinine equation without race adjustment. ??eGFR can be influenced by muscle mass, exercise, and diet. ??The reported eGFR is an estimation only and is only applicable if the renal function is stable. ALBUMIN 3.7(L) 4.0 - 4.9 g/dL 03/04/2024 9:36 PM [facility] PROTEIN,TOTAL 6.9 6.0 - 8.0 g/dL 03/04/2024 9:36 PM [facility] BILIRUBIN,TOTAL 0.4 0.0 - 1.2 mg/dL 03/04/2024 9:36 PM [facility] ALK PHOSPHATASE 170(H) 35 - 104 IU/L 03/04/2024 9:36 PM CDT [facility] ALT (SGPT) 34 10 - 35 IU/L 03/04/2024 9:36 PM CDT [facility] AST (SGOT) 51(H) 10 - 35 IU/L 03/04/2024 9:36 PM CDT [facility] Blood BLOOD SPECIMEN / Unknown Venipuncture / Unknown 03/04/2024 2:11 PM CDT 03/04/2024 2:12 PM CDT Jaclyn TAI CHEMISTRY Performing Organization Address City/[facility]/ZIP Co de Phone Number [facility] [address] * HPV HIGH RISK (02/05/2024 1:44 PM CDT) TYPE 16 Negative Negative 02/08/2024 11:32 AM CDT [facility] TYPE 18 Negative Negative 02/08/2024 11:32 AM CDT [facility] OTHER HIGH RISK TYPES Negative Negative 02/08/2024 11:32 AM CDT [facility] Other (Cervical) Non-Blood / Unknown 02/05/2024 1:44 PM CDT 02/06/2024 9:42 AM CDT Narrative [facility] - 02/08/2024 11:32 AM CDT HPV types 16, 18, 31, 33, 35, 39, 45, 51, 52, 56, 58, 59, 66 and 68 DNA were undetectable or below the pre-set threshold. Methodology: Alanis Luciano 4800 HPV Test Stephy Coles DO MICROBIOLOGY Performing Organization Address City/[facility]/ZIP Co de Phone Number [facility] [address] [place] [address], * ANTI HIV 1/2 (10/01/2023 3:18 PM PEN RIDER) HIV-1/HIV-2 SCREEN Non-Reacti ve Non-Reacti ve 10/01/2023 9:00 PM PEN RIDER [facility] Comment:HIV-1 p24 and HIV-1/ HIV-2 Ab Not Detected. Blood BLOOD SPECIMEN / Unknown Butterfly / Unknown 10/01/2023 3:18 PM PEN RIDER 10/01/2023 3:19 PM PEN RIDER Stephy Coles DO SEND OUTS [facility] [address] [place] [address], * HCV ANTIBODY RFX TO QUANT PCR (05/25/2023 2:07 PM CDT) HCV Ab Non Reactive Non Reactive 05/29/2023 12:07 PM CDT [facility] Blood BLOOD SPECIMEN / Unknown Butterfly / Unknown 05/25/2023 2:07 PM CDT 05/25/2023 2:07 PM CDT Narrative [facility] ([facility]) - 05/29/2023 12:07 PM CDT Performed at: ??[address] - [address] ??[id number] Mechanical Handyman: Dickson Amado MD, Phone: ??[phone] Stephy Coles DO LABORATORY [facility] ([facility]) [address] [place] [address] from Last 3 Months or Most Recently Relevant to Health Maintenance Advance Directives * Full Code (Latest Code Status on File) Date Activated Date Inactivated Comments 06/02/2012 4:20 PM 06/04/2012 5:18 PM * Full Code Date Activated Date Inactivated Comments 11/23/2005 3:16 PM 12/07/2005 3:11 PM Care Teams Roller Skate Repairer Relationship Specialty Start Date End Date Stephy Coles DO [address] [place] [id number] PCP - General Family Practice 04/17/24 Fatimah Tavares DPM [address] [place], [place] [address] Surgery - Podiatric 06/22/21 Mandie oPwell MD [address] [place], [place] [id number] Dermatology 06/22/21 Finesse Salomon MD [address] [place], [place] [phone] Surgery - Ophthalmology 06/22/21 Lynne Caban MD [address] [facility] [place] [place] [place] Psychiatry 09/23/21 Cinda Lenz NP [address] [address] Nephrology Nurse Practitioner - Adult 07/04/23 Anastasiia Arenas, CRISTOBALC [address] [place] [id number] Physician Geochemical Manager 07/25/23
--- OUTSIDE RECORDS SUMMARY | 2024-05-19 07:37 | XMS_ITS | Encounter Summary ---
Author Organization [facility] Address [address] [address] Care Team Providers Care Regulatory Affairs Director Name Role Phone No Primary/Referring, Phy Primary Care Provider Unavailable Reason for Visit * Reason Comments CRISIS EVALUATION--ED Encounter Details Date Type Department Care Team (Late st Contact Info) Description 04/03/2024 8:57 PM CDT - 04/04/2024 12:13 AM CDT [facility] [address] [place], [place] [phone] Jaclyn Turner PAFelipe [address] [place], [place] [phone] Adjustment disorder, unspecified type (HRC) (Primary Dx) Discharge Disposition: Home Social History Tobacco Use Types Packs/Day Years Used Date Smoking Tobacco: Never Smokeless Tobacco: Never Alcohol Use Standard Drinks/Week Comments Never 0 (1 standard drink = 0.6 oz pur e alcohol) Humiliation, Afraid, Rape, and Kick questionnair e Answer Date Recorded Fear of Current or Ex-Partner Not on file Emotionally Abused Not on file 04/03/2024 Within the last year, have y ou been kicked, hit, slapped, or otherwise physically hurt by your partner or ex-partner? No 04/03/2024 Within the last year, have y ou been raped or forced to have any kind of sexual activity by your partner or ex-partner? No 04/03/2024 Sex and Gender Information Value Date Recorded Sex Assigned at Not on file Gender Identity Not on file Sexual Orientation Not on file documented as of this encounter Last Filed Vital Signs Vital Sign Reading Time Taken Comments Blood Pressure 131/78 04/03/2024 9:12 PM CDT Pulse 76 04/03/2024 9:12 PM CDT Temperature 37 ??C (98.6 ??F) 04/03/2024 9:12 PM CDT Respiratory Rate 16 04/03/2024 9:12 PM CDT Oxygen Saturation 100% 04/03/2024 9:12 PM CDT Inhaled Oxygen Concentration - - Weight - - Height - - Body Mass Index - - documented in this encounter Discharge Instructions * Discharge Instructions* Jaclyn Turner PA-C - 04/03/2024 11:58 PM CDT Continue current medications. Follow up with your outpatient providers for continued care. Return to ER if worsening symptoms, or if any other concerns. documented in this encounter Medications at Time [...] pain + indigestion. Maximum 10 tablets/24 hours. Pjlgkdb-Iyfqhraetb-A enthol (VICKS VAPORUB EX) Apply topically underneath [...] by mouth daily at bedtime. nystatin (MYCOSTATIN) [id number] UNIT/GM cream Apply topically two times daily [...] as of this encounter Consult Notes * Diana Ellis, BREAKER MACHINE OPERATOR - 04/03/2024 9:16 PM CDTAssociated Order(s): ED SOCIAL WORK CONSULT [facility] Emergency Department Social Work Crisis Assessment Current and Past Diagnoses: episodic mood disorder, intermittent explosive disorder, cluster B personality disorder, autism spectrum disorder, borderline intellectual functioning Narrative: The patient is a 29 y.o. female who comes to the ED with medics. Information from collateral (include names and phone numbers) [facility]. She is the only resident. Pt has several supports in place. [facility] (Assisted, ) She had a tooth pulled, she was on a soft diet. She ran outside, got into a state vehicle honking the horn, playing with buttons, she got out of there, ran back into the house, locked staff out and then staff were trying to get back in, she ran back out, stopped at a window by the front door, got the plexi glass off of there and broke the window and got a piece of glass, attempted to cut herself on the right arm above wrist (scratch fox), threatened staff, she wasn't very nice to the officers. While the officers were here she was threatening to hit and kick staff, verbally abusive. With theglass she said she was going to kill herself. This time it was more serious than the other times asshe broke the window. [facility] advocated for her to stay the night as they have to clean up the glass and they have a big open window, it is not safe right now. Also Pt has a pattern of escalating if returned and comes right back. I shared we will assess her and update her after this. Diana Ellis, BREAKER MACHINE OPERATOR 04/03/2024, 9:20 PM I attempted to call longterm back at 10:03PM and there was no answer. I called guardian Ana Maria Jennings who strongly advocates that we keep her overnight as she feels that she will keep coming back. She says this is serious, she had a Appt on Sunday and he wasn'tchanging anything back as far as the Depakote or Prozac. He said she could have more haldol as her PRN. I shared we don't feel that keeping her would be beneficial as she is calm now. I shared she will be given tylenol for her tooth pain and I can see if the provider is able to give her something to relax her for this evening. Guardian stated if we cannot keep her overnight then she wants her given something to calm her down before returning as she feels she will start back up with the overnight staff. Diana German Ellis, [facility] 04/03/2024, 10:12 PM I called longterm and spoke to Con[facility] to share she will be coming back via [facility]. Diana Porter Caleb, [facility] 04/03/2024, 10:21 PM Does patient have legal guardian? (include names, phone numbers, and document contact with guardian) Yes Does the patient have access to the means or the method related to their plan while in the hospital? N/a Does the patient have access to the means or the method related to their plan after discharge? Superficially cut earlier with glass Clinical Symptoms: Reports wanting to hurt self and staff - chronic Dangerousness (include any known information regarding historical or current homicidal, sexual, or physically aggressive behaviors): Yes - threatened staff, said she was going to hit and kick staff, broke a window, locked staff out of house, got into a vehicle that wasn't hers to honk and press buttons. Current Aggression towards others: No Does the patient have access to firearms? No Suicide Assessment/SIB Endorsed wanting to kill self, broke glass stating that was her intention - scratched her wrist Current Stressors and Relevant History: Dental work Protective Factors: detention Family History: Unknown Living Situation: detention - only resident Legal Issues (include comments regarding probation, incarcerations, etc): unknown Employment/Income: none Mental Health Care: Principal Product Manager: [employer] ([facility]) [place] [employer] [facility] [phone] (-[facility]) Commitment History: [facility], 2021 Community Providers: Dr Panda, Psychiatrist Hospitalizations: 01/10/2023, [facility], homicidal thoughts Substance use/abuse: no Behavior in ED: Cooperative Mental Status: Affect: Flat Appearance: Appropriate to weather/situation Eye Contact: Engaged Insight: Limited Intellectual Functioning: Developmental delays Mood: Euthymic/neutral Orientation: Oriented Speech: Slow Thought Process: Coherent Clinical decision making/rationale: Pt with the past psych history significant for autism spectrum disorder who presents to the ED following an outburst at her longterm that resulted in verbal threats and property destruction. Pt has a history of presenting to the emergency department with similar presentations of verbal threats and property damage. At time of assessment, Pt is calm, reporting tooth pain, was open to Tylenol. Encouraged pt to utilize her resources at home such as listening tomusic ([employer] [place]) and utilizing prn's. Updated longterm Conch[facility] and guardian that our recommendation is discharge home. Pt will be sent via [facility]. Hospitalization does not appear to benefit patient, and she has 3:1 staffing during day and 2:1 staffing at night. Suicide Risk: Plan: Patient will be discharged home via [facility] secure transport. MANN Doe 04/03/2024, 10:25 PM documented in this encounter ED Notes * Jason Dumont RN - 04/04/2024 12:11 AM CDT [facility] ED Nursing Discharge Note Arrival Information: Patient arrived: Ambulance Patient escorted by: EMS/Ambulance Discharge Information: Patient discharged: Assisted - Verbal report given to returning facility: Yes - by SW Patient accompanied by: Accompanied By: Self Transport mode: Mode: Other (comment) ([facility]) Discharge instructions given and explained to patient: Follow up appointment review with patient: Yes Equipment and education provided to patient: Yes Patient appropriately dressed for weather: Yes Transportation arranged: Yes merchandise manager/health care social worker consulted prior to discharge: Yes LDA in place: None Patient verbalized understanding of discharge plan and capable of completing discharge plan: Yes Does patient require hand-off or assistance with discharge plan: No Belongings and medication returned to patient and prompted to retrieve weapons: Yes Patient level of pain on discharge: (0-10) Pain Rating: Rest: 1 Holds documented by nursing during this visit - reviewed chart for most current hold status: Yes Legal Status Orders (From admission, onward) LEGAL STATUS: [facility]ACE OR HEALTH OFFICER AUTHORITY HOLD * Jackeline Luo RN - 04/03/2024 10:23 PM CDT [facility] called for transport. Will arrive around midnight * Jaclyn Turner PA-C - 04/03/2024 9:36 PM CDT [facility] Emergency Medicine Visit Note Chief Complaint: CRISIS EVALUATION--ED HPI Elisa Jennings is a 29 y.o. female with history of cluster B personality disorder, type 2 diabetes, obesity, ADHD, autism spectrum disorder, aggression, borderline intellectual functioning, who presents to the Emergency Department for evaluation of aggression at her longterm. Patient lives in a longterm that was developed to house only her. Today she was upset, punched a window and broke it, threatened to harm herself and staff with a broken glass. She had a tooth pulled today, says the anesthetic is starting to wear off. Patient says she is suicidal, says she may hurt herself or staff. Says she wants to be admitted to the hospital ???for a long time. ?? Recently saw her psychiatrist. Triage Vitals [04/03/242111] Temp 98.6 ??F (37 ??C) Temp src Oral Pulse 76 Resp 16 BP 131/78 SpO2 100 % Physical Exam Vitals and nursing note reviewed. Constitutional: General: She is not in acute distress. Appearance: She is well-developed. She is not diaphoretic. HENT: Head: Normocephalic and atraumatic. Mouth/Throat: Comments: Occasionally spitting bloody saliva into a bag Eyes: General: No scleral icterus. Conjunctiva/sclera: Conjunctivae normal. Cardiovascular: Rate and Rhythm: Normal rate and regular rhythm. Heart sounds: No murmur heard. Pulmonary: Effort: Pulmonary effort is normal. No respiratory distress. Breath sounds: Normal breath sounds. Musculoskeletal: Comments: Ambulates without difficulty Skin: Findings: No rash. Neurological: Mental Status: She is alert. Psychiatric: Attention and Perception: Attention normal. Mood and Affect: Mood and affect normal. Speech: Speech normal. Judgment: Judgment is impulsive. Comments: Patient shows good eye contact. She answers questions appropriately. Does not appear to be responding to internal stimuli. Is calm. Patient presents after breaking a window at a longterm, threatening to assault staff and herself.She says she is still suicidal and has had thoughts of harming others. She is calm, sitting quietlyin her room. Did have a tooth pulled today, says her mouth is a little sore, agrees to take some Tylenol. She has requesting a sandwich, discussed with her that this would not be a good idea given her recent extraction but that we could give her something soft. Patient is well known to this department. Tends to act out at her group in, typically get discharged either the same day or sleep overnight and discharged the next day. The longterm was specifically designed for her and her special needs. She does have multiple outpatient resources. Patient was seen together with the nurse and socialworker, please see social work note. tie up worker was able to speak with her legal guardian as well as longterm staff. Will plan to give her her bedtime meds, and discharge her back to her longterm. Jaclyn Turner PA-C ED Course as of 04/04/24[address] [facility] April [birth year], [address] SW spoke with patient's guardian and staff. Will plan to give her her bedtime medications (minus the clozapine) and discharge her back to her . [facility] will arrive around midnight. [JK] ED Course User Index [JK] Jaclyn Turner PA-C Clinical Impressions as of 04/04/[address] Adjustment disorder, unspecified type (HRC) documented in this encounter Plan of Treatment Not on file documented as of this encounter Visit Diagnoses Diagnosis Adjustment disorder, unspecified type (HRC)- Primary * Triage Assessment Note - Jackeline Luo RN - 04/03/2024 9:14 PM CDT Mode of arrival: [facility] Chief complaint: crisis evaluation Symptoms/background/relevant history (narrative): detention called 911 today after the patient became increasingly agitated and aggressive. She punched a window and threatened staff with the broken glass. She also made comments that she could use it to cut herself. Patient arrived on a PHOA Patient wanded upon arrival per security documented in this encounter Administered Medications Inactive Administered Medications - up to 3 most recent administrations Medication Order MAR Action Action Date Dose Rate Site acetaminophen (TYLENOL) tablet 1,000 mg 1,000 mg, Oral, ONCE, On [facility] 04/03/24 at 2130, For 1 dose Given 04/03/2024 10:37 PM CDT 1,000 mg divalproex (DEPAKOTE ER) 24 hour release tablet 500 mg 500 mg, Oral, NOW, On [place]zma 04/03/24 at 2300, For 1 dose, Tablet/Capsule should be swallowed whole. HAZARDOUS DRUG Preparation: Single glove Administration: If no touch, no PPE; if handling, single glove Given 04/03/2024 10:36 PM CDT 500 mg gabapentin (NEURONTIN) capsule 100 mg 100 mg, Oral, NOW, On [place]zma 04/03/24 at 2300, For 1 dose Given 04/03/2024 10:36 PM CDT 100 mg melatonin tablet 6 mg 6 mg, Oral, NOW, On [place] 04/03/24 at 2300, For 1 dose Given 04/03/2024 10:36 PM CDT 6 mg montelukast (SINGULAIR) tablet 10 mg 10 mg, Oral, NOW, On [place]zma 04/03/24 at 2300, For 1 dose Given 04/03/2024 10:37 PM CDT 10 mg OLANZapine (ZyPREXA ZYDIS) disintegrating tablet 5 mg 5 mg, Oral, ONCE, On Uzma 04/03/24 at 2300, For 1 dose Given 04/03/2024 10:37 PM CDT 5 mg documented in this encounter Active and Recently Administered Medications Times are shown in CDT. Scheduled Medication Order 04/02/2024 04/03/2024 04/04/2024 acetaminophen (TYLENOL) tablet 1,000 mg (COMPLETED) 1,000 mg, Oral, ONCE, On Uzma 04/03/24 at 2130, For 1 dose 2236 (Given - Provider: Jackeline Luo RN) divalproex (DEPAKOTE ER) 24 hour release tablet 500 mg (COMPLETED) 500 mg, Oral, NOW, On Uzma 04/03/24 at 2300, For 1 dose, Tablet/Capsule should be swallowed whole. HAZARDOUS DRUG Preparation: Single glove Administration: If no touch, no PPE; if handling, single glove 2235 (Given - Provider: Jackeline Luo RN) gabapentin (NEURONTIN) capsule 100 mg (COMPLETED) 100 mg, Oral, NOW, On Uzma 04/03/24 at 2300, For 1 dose 2235 (Given - Provider: Jackeline Luo RN) melatonin tablet 6 mg (COMPLETED) 6 mg, Oral, NOW, On [place]zma 04/03/24 at 2300, For 1 dose 2235 (Given - Provider: Jackeline Luo RN) montelukast (SINGULAIR) tablet 10 mg (COMPLETED) 10 mg, Oral, NOW, On Uzma 04/03/24 at 2300, For 1 dose 2236 (Given - Provider: Jackeline Luo RN) OLANZapine (ZyPREXA ZYDIS) disintegrating tablet 5 mg (COMPLETED) 5 mg, Oral, ONCE, On [place]zma 04/03/24 at 2300, For 1 dose 2236 (Given - Provider: Jackeline Luo RN) traMADol (ULTRAM) tablet 50 mg 50 mg, Oral, ONCE, On Uzma 04/03/24 at 2300, For 1 dose 0009 (Not Given - Provider: Jason Dumont RN - Reason: Medication not available - Comment: Pt discharged) documented in this encounter Care Teams Regulatory Affairs Director Relationship Specialty Start Date End Date No Primary/Referring, Phy PCP - General 06/26/22 documented as of this encounter
--- OUTSIDE RECORDS SUMMARY | 2024-05-19 07:37 | XMS_ITS | Continuity of Care Document ---
Author Organization Formerly [facility], [place] [facility] Address [address] [place] [address] [address] [place] [address] Care Team Providers Care Presser First Name Role Phone PHUONG ROPER Primary Care Provider Assessment Encounter Date Assessment Date Assessment LastModified by Organization Details LastModified Time 04/22/2024 04/22/2024 Nails and calluses debrided as previously documented. Patient meets criteria for ongoing nail cares and will be continually seen on a routine basis. Patient's mother wants to discuss subio and will call us personally. Patient will be seen back for schedule Subiomed trial. Off note: Staff's number [phone] [email or web address] Not available 04/22/2024 14:16:32 Plan of Treatment Reminders Order Date Submit [...] care Active [address] Roper 02/16 next appt 05/11/24 Tuyet myers [place] - [facility] 4 13:58:06 Acquired hallux valgus Active 2021 Acquired hallux valgus; Original Code: 049692588 Origi nal Codesystem: SNOMED CT Classificati on: Medical Confirm ation Status: Confirmed Not Available [facility] 3 09:05:37 Polyneuropathy due to type 2 diabetes mellitus Active 2021 Polyneuropathy due to type 2 diabetes mellitus; Original Code: 4538868577 Orig inal Codesystem: SNOMED CT Classificati on: Medical Confirm ation Status: Confirmed Not Available [facility] 3 09:05:37 Callosity Active 2021 Callosity; Original Code: 273611113 Origi nal Codesystem: SNOMED CT Classificati on: Medical Confirm ation Status: Confirmed Not Available [facility] 3 09:05:37 Onychomycosis of toenails Active 2021 Onychomycosis of toenails; Original Code: 7171646750 Orig inal Codesystem: SNOMED CT Classificati on: Medical Confirm ation Status: Confirmed Not Available [facility] 3 09:05:37 Problem Notes None recorded. Procedures Surgical History Date Name Laterality Status Provider Name and Address Organization Details Recorded Time 04/22/20 24 NAIL/CallusDEBR IDEMENT completed John myers [facility] 04/22/2024 14:11:17 12/18/19 24 NAIL/CallusDEBR IDEMENT completed John myers [facility] 12/18/2023 14:48:32 08/29/[address] Monotya completed Stan Luevano, YANELY [address] [place], [address], [facility] 08/29/2023 12:44:39 05/30/[address] Montoya completed Stan Luevano, YANELY [address] [place], [address], [facility] 05/30/2023 12:37:45 02/23/[address] Ackerman completed Jigar Carlos DPM [address] [place], [address], [facility] 02/23/2023 08:15:42 10/17/20 22 Routine Foot Care completed Jigar Carlos DPM [address] [place], [address], [place] - [facility] 10/17/2022 14:39:47 10/03/[address] Jan Carlos, DPM [address] [place], [address], [facility] 10/03/2022 14:34:43 Imaging Results None recorded. Procedure Notes None recorded. Medical Equipment None Reported. Allergies Allergen ID Allergen Name Allergen Category Reaction Reaction Severity Criticality Documentation Date Start Date Code Code System Note Provider Name and Address Organization Details Recorded Time 70 amoxicill in medicatio n Not available Not available Not available 10/03/2022 723 RxNorm Tuyet Danay null, [place] - [facility] 2 14:05:59 71 Geodon medicatio n Not available Not available Not available 10/03/2022 15903 4 RxNorm Tuyet Danay [place] - [facility] 2 14:06:11 72 lithium Not available Not available Not available Not available 10/03/2022 6448 RxNorm Tuyet Danay null, [place] - [facility] 2 14:06:21 73 Non-stero idal anti-infl ammatory agent (product) medicatio n Not available Not available Not available 10/03/2022 59890 005 SNOMED Tuyet Danay null, [place] - [facility] 2 14:06:34 74 Medicinal product containin g penicilli n and acting as antibacte rial agent (product) medicatio n Not available Not available Not available 10/03/2022 87214 05 SNOMED Tuyet Danay null, [place] - [facility] 2 14:06:49 75 pineapple extract food Not available Not available Not available 10/03/2022 04093 74 RxNorm Tuyet Danay null, [place] - [...] Not Available Not Availabl e Not Available clindamycin HCl 300 mg capsule active Not Available Not Available Not Available divalproex 250 mg tablet,delayed release [...] active Not Available Not Available Not Available Senexon-S 8.6 mg-50 mg tablet active Not Available [...] Encounter Closed Date Diagnosis/Indication Diagnosis SNOMED-CT Code [id number] Jigar Carlos DPM [place] [facility] [address] [place] [address] 04/22/2024 13:55:26 04/23/2024 09:36:59 Peripheral neuropathy due to type 2 diabetes mellitus 5879014859120 On waiting list for organ transplant 560268301 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 18416516211345 8 Acquired p es planus of right foot 71893359410789 6 Acquired h allux limitus of right great toe 48641763262264 00 Acquired h allux limitus of left great toe 44221804540595 09 Onychomycosis 156551304 Foot callus 160825651 Health Concerns Section Related Observation LastModified by Organization Detai ls LastModified Time None Recorded Concern Status LastModified by Organization Details LastModified Time None Recorded Payers Encounter Date Sequence Insurance Name Policy Number Policy Xie Covered Member ID Xie Member ID Guarantor Name 04/22/2024 2 MEDICA CHOICE CARE [facility] (MEDICAID HMO) Elisa Jennings [id number] Elisa Jennings 04/22/2024 1 [place] [employer] [facility] Elisa Jennings [id number] Elisa Jennings Notes Date Note Type Note Provider Name and Address Organization Details Recorded Time 04/22/2024 text/html HPI Notes: Tyler salinas is a 28 year old female established patient who presents with the chief complaint with care staff from the [facility]. Presents today for evaluation of problematic toenails and feet in general. They relate chronic thickening and deformity to their toenails that has not responded to self-trimming, topical riee-lba-rxzaklz anti-fungal therapy, foot soaks, and other similar [...] Paresthesia: No Additionally the patient concerns about gait instability. Patient presents for further evaluation and treatment options. Jigar Carlos DPM [address] [place], [address], [facility] - [facility] 04/23/2024 09:07:43 OBGyn Episode No OBEpisode recorded.
--- OUTSIDE RECORDS SUMMARY | 2024-05-19 07:37 | XMS_ITS | Data Portability ---
Author Organization [place] - [facility], [employer] Address [address] [place] [address] Care Team Providers Care [employer] Name Role Phone PHUONG ROPER Primary Care Provider Assessment Encounter Date Assessment Date Assessment LastModified by Organization Details LastModified Time 02/22/2023 02/22/2023 Patient seen in office today for a diabetic foot exam. Diabetes is well controlled. Abnormal findings include mycotic nails, neuropathy . Patient educated on diabetic foot complications and prevention. Discussed treatment/diagno stic plan and orders with patient as indicated below. [email or web address] Not available 02/23/2023 08:18:04 05/30/2023 05/30/2023 Nails debrided as previously documented. Patient meets criteria for ongoing nail cares and will be continually seen on a routine basis. Of note the patient's [facility] staff is interested in inserts for foot pain (patient does not relate this today), and we will send a form for her guardian to complete at this time. Not available 05/30/2023 12:40:13 08/29/2023 08/29/2023 Nails debrided as previously documented. Patient meets criteria for ongoing nail cares and will be continually seen on a routine basis. Of note the patient's [facility] staff is interested in inserts for [...] for Subiomed trial. Off note: Staff's number [phone] Not available 12/19/2023 02:27:43 04/22/2024 04/22/2024 Nails and calluses debrided as previously documented. Patient meets criteria for ongoing nail cares and will be continually seen on a routine basis. Patient's mother wants to discuss subio and will call us personally. Patient will be seen back for schedule Subiomed trial. Off note: Staff's number [phone] Not available 04/22/2024 14:16:32 Plan of Treatment [...] seen Dr Roper 02/16 next appt 05/11/24 MIGUELINA [place] - [facility] 4 13:58:06 Acquired hallux valgus Active 2021 Acquired hallux valgus; Original Code: 136067453 Origi nal Codesystem: SNOMED CT Classificati on: Medical Confirm ation Status: Confirmed Not Available [facility] 3 09:05:37 Polyneuropathy due to type 2 diabetes mellitus Active 2021 Polyneuropathy due to type 2 diabetes mellitus; Original Code: 2755445274 Orig inal Codesystem: SNOMED CT Classificati on: Medical Confirm ation Status: Confirmed Not Available [facility] 3 09:05:37 Callosity Active 2021 Callosity; Original Code: 091108130 Origi nal Codesystem: SNOMED CT Classificati on: Medical Confirm ation Status: Confirmed Not Available [facility] 3 09:05:37 Onychomycosis of toenails Active 2021 Onychomycosis of toenails; Original Code: 0408443441 Orig inal Codesystem: SNOMED CT Classificati on: Medical Confirm ation Status: Confirmed Not Available [facility] 09:05:37 Problem Notes None recorded. Procedures Surgical History Date Name Laterality Status Provider Name and Address Organization Details Recorded Time 04/22/20 24 NAIL/CallusDEBR IDEMENT completed John myers [facility] 04/22/2024 14:11:17 12/18/19 24 [facility]BR [facility] 12/18/2023 14:48:32 08/29/[address] Montoya completed Stan Luevano, TOMEKA [address] [place], [address] 08/29/2023 12:44:39 05/30/[address] Montoya completed Stan Luevano DPM [address] [place], [address] 05/30/2023 12:37:45 02/23/[address] Ackerman completed Jigar Carlos DPM [address] [place], [address] 02/23/2023 08:15:42 10/17/20 Routine Foot Care completed Jigar Carlos DPM [address] [place], [address] 10/17/2022 14:39:47 10/03/[address] Montoya completed Jigar Carlos DPM [address] [place], [address], [facility] 10/03/2022 14:34:43 Imaging Results None recorded. Procedure Notes None recorded. Medical Equipment None Reported. Allergies Allergen ID Allergen Name Allergen Category Reaction Reaction Severity Criticality Documentation Date Start Date Code Code System Note Provider Name and Address Organization Details Recorded Time 70 amoxicill in medicatio n Not available Not available Not available 10/03/2022 723 RxNorm Tuyet myers, [place] - [facility] 2 14:05:59 71 Geodon medicatio n Not available Not available Not available 10/03/2022 07735 4 RxMarty myers, [place] - [facility] 2 14:06:11 72 lithium Not available Not available Not available Not available 10/03/2022 6448 RxNorm Tuyet myers, [place] - [facility] 2 14:06:21 73 Non-stero idal anti-infl ammatory agent (product) medicatio n Not available Not available Not available 10/03/2022 55627 005 SNOMED Tuyet myers, [place] - [facility] 2 14:06:34 74 Medicinal product containin g penicilli n and acting as antibacte rial agent (product) medicatio n Not available Not available Not available 10/03/2022 44556 05 SNOMED Tuyet myers, [place] [facility] 2 14:06:49 75 pineapple extract food Not available Not available Not available 10/03/2022 33879 74 RxMarty myers, [place] [facility] 2 14:06:59 [...] Diagnosis/Indication Diagnosis SNOMED-CT Code 118 Jigar Carlos DPM [facility] [address] [place] [address] [place] [address] 10/03/2022 14:20:55 10/03/2022 15:20:36 Ingrowing toenail 827893574 581 TOMEKA Boone [facility] [address] [place] [address] [place] [address] 10/17/2022 13:58:33 10/17/2022 15:19:17 Foot callus 865784520 Ingrowing toenail 100811 009 4228 TOMEKA Boone [facility] [address] [place] [address] [place] [address] 02/22/2023 11:57:15 02/23/2023 11:31:39 Ingrowing toenail 137847609 Peripheral neuropathy due to type 2 diabetes mellitus 7236847713885 Onychomycosis 875504554 6893 Stan Luevano, [facility] [address] [place] [address] 05/30/2023 10:50:45 05/31/2023 09:50:45 Peripheral neuropathy due to type 2 diabetes mellitus 4887359411195 On waiting list for organ transplant 718922826 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 79894348979607 8 Acquired p es planus of right foot 25741956174461 6 Acquired h allux limitus of right great toe 03480779312806 00 Acquired h allux limitus of left great toe 92073001541838 09 Onychomycosis 926454234 9487 Stan Luevano, [facility] [address] [place] [address] 08/29/2023 11:01:11 08/30/2023 15:54:51 Peripheral neuropathy due to type 2 diabetes mellitus 1334603941041 On waiting list for organ transplant 814309349 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 93742435078382 8 Acquired p es planus of right foot 89896584889817 6 Acquired h allux limitus of right great toe 71129927255747 00 Acquired h allux limitus of left great toe 94483955358003 09 Onychomycosis 943777634 16472 Jigar Carlos [facility] [address] [place] [address] 12/18/2023 14:16:46 12/21/2023 09:31:46 Peripheral neuropathy due to type 2 diabetes mellitus 2358957107634 On waiting list for organ transplant 195904825 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 84386373480647 8 Acquired p es planus of right foot 97743672819068 6 Acquired h allux limitus of right great toe 03954777230840 00 Acquired h allux limitus of left great toe 01999168346465 09 Onychomycosis 254937910 Foot callus 178880378 03522 Jigar Carlos [facility] [address] [place] [address] 04/22/2024 13:55:26 04/23/2024 09:36:59 Peripheral neuropathy due to type 2 diabetes mellitus 7897607447231 On waiting list for organ transplant 002591581 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 53117671226958 8 Acquired p es planus of right foot 69052778716839 6 Acquired h allux limitus of right great toe 23275464135470 00 Acquired h allux limitus of left great toe 54473084655760 09 Onychomycosis 351742259 Foot callus 357023417 Health Concerns Section Related Observation LastModified by Organization Detai ls LastModified Time None Recorded Concern Status LastModified by Organization Details LastModified Time None Recorded Advance Directives Directive None Recorded Payers Encounter Date Sequence Insurance Name Policy Number Policy Xie Covered Member ID Xie Member ID Guarantor Name 02/22/2023 1 [place] [employer] Elisa Jennings [id number] Elisa Jennings 02/22/2023 2 MEDICA (MEDICARE SUPPLEMENT) Elisa Jennings [id number] Elisa Jennings 05/30/2023 1 [place] [employer] Elisa Jennings [id number] Elisa Jennings 05/30/2023 2 MEDICA (MEDICARE SUPPLEMENT) Elisa Jennings [id number] Elisa Jennings 08/29/2023 1 [place] [employer] Elisa Jennings [id number] Elisa Jennings 08/29/2023 2 MEDICA (MEDICARE SUPPLEMENT) Elisa Jennings [id number] Elisa Jennings 12/18/2023 2 [place] H[place] Elisa Jennings [id number] Elisa Jennings 12/18/2023 1 [place] [employer] Elisa Jennings [id number] Elisa Jennings 04/22/2024 2 [place] Elisa Jennings [id number] Elisa Jennings 04/22/2024 1 [place] [employer] Elisa Jennings [id number] Elisa Jennings Notes Date Note Type Note Provider Name and Address Organization Details Recorded Time 02/22/2023 text/html HPI Notes: This Pt. presents for diabetic foot care. THey are a Q9 diabetic with peripheral neuropathy, THick mycotic nails, atrophic skin, palpable pedal pulses, Jigar Carlos, YANELY [address] [place], [address], [facility] 02/23/2023 08:18:46 05/30/2023 text/html HPI Notes: Tyler salinas is a 28 year old female new patient who presents with the chief complaint with care staff from the [facility]. Presents today for evaluation of problematic toenails and feet in general. They relate chronic thickening and deformity to their toenails that has not responded to self-trimming, topical hmqt-tvy-gccettr anti-fungal therapy, foot soaks, and other similar [...] and treatment options. Stan Luevano DPM [address] [place], [address], [facility] 05/30/2023 12:40:21 08/29/2023 text/html HPI Notes: Tyler salinas is a 28 year old female established patient who presents with the chief complaint with care staff from the [facility]. Presents today for evaluation of problematic toenails and feet in general. They relate chronic thickening and deformity to their toenails that has not responded to self-trimming, topical tlxi-idp-nxetywx anti-fungal therapy, foot soaks, and other similar [...] and treatment options. Stan Luevano DPM [address] [place], [address], [facility] 08/29/2023 12:46:55 12/18/2023 text/html HPI Notes: Tyler salinas is a 28 year old female established patient who presents with the chief complaint with care staff from the [facility]. Presents today for evaluation of problematic toenails and feet in general. They relate chronic thickening and deformity to their toenails that has not responded to self-trimming, topical tgae-wod-tbpftjg anti-fungal therapy, foot soaks, and other similar [...] evaluation and treatment options. Jigar Carlos DPM [address] [place] [address], [address], [facility] 12/19/2023 09:39:49 04/22/2024 text/html HPI Notes: Tyler salinas is a 28 year old female established patient who presents with the chief complaint with care staff from the [facility]. Presents today for evaluation of problematic toenails and feet in general. They relate chronic thickening and deformity to their toenails that has not responded to self-trimming, topical cfsx-wec-khgbkmr anti-fungal therapy, foot soaks, and other similar [...] and treatment options. Jigar Carlos DPM [address] [place], [address], [facility] 04/23/2024 09:07:43 OBGyn Episode No OBEpisode recorded.
--- OUTSIDE RECORDS SUMMARY | 2024-05-19 07:37 | XMS_ITS | Clinical Summary ---
[facility] Address [address] [place] [address] Care Team Providers Care Sheet Metal Helper Name Role Phone No Primary/Referring, Phy Primary [...] for each transition of care or referral. [employer] Allergies Active Allergy Reactions Criticality Noted Date Comments Amantadines 06/14/2015 Ampicillin 07/17/2003 PN: LW Reaction: HIVES [place] 06/14/2015 Nsaids Other, see comments High 04/06/2018 [...] mg) intramuscularly as needed. 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 Overview: Due to lithium toxicity Jun 2012, dialysis MWF at [facility] Gastroesophageal reflux disease 02/18/2013 Borderline intellectual functioning 06/04/2012 Bipolar 1 disorder 06/03/2012 Acanthosis nigricans 02/22/2010 Posttraumatic stress disorder 01/19/2010 Attention deficit hyperactivity disorder (ADHD) 07/21/2003 Overview: LW Onset: 88Egv31 ; Attention Deficit Dis w Hyperactivity Episodic mood disorder 07/21/2003 Overview: LW Onset: 72Xro19 ; Mood Disorder Encounters Date Type Department Care Team Description 04/03/2024 8:57 PM CDT - 04/04/2024 12:13 AM CDT Emergency Emergency Dept [address] [place] [address] Jaclyn Turner PA-C Adjustment disorder, unspecified type (HRC) (Primary Dx) Discharge Disposition: Home 03/23/2024 8:22 PM CDT - 03/24/2024 12:58 AM CDT Emergency Emergency Dept [address] [place] [address] Neyda Campbell PA-C 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); Suicidal ideation Discharge Disposition: Home 03/21/2024 10:19 PM CDT - 03/22/2024 12:21 AM CDT Emergency Emergency Dept [address] [place] [address] Jose Boles MD Adjustment disorder with depressed [...] (301 lb 3.2 oz) 01/11/2023 4:30 PM MANAGER REGISTRATION Height 165.1 cm (5' 5) 01/11/2023 4:30 PM MANAGER REGISTRATION Body Mass Index 50.12 01/11/2023 4:30 PM MANAGER REGISTRATION Plan of Treatment Health Maintenance Due Date [...] A1C (EXTERNAL RESULT) Routine 10/01/2023 3:18 PM MANAGER REGISTRATION LIPID PANEL & DIRECT LDL (IF NEEDED) Routine 02/27/2022 7:09 AM CDT from Last 3 Months or Most Recently Relevant to Health Maintenance Results * (ABNORMAL) Lipid Panel and Direct LDL(If Needed) (02/27/2022 7:09 AM CDT) Cholesterol 244(H) 0 - 199 mg/dL 02/27/2022 8:13 AM CDT [facility] Triglyceride 470(H) <=149 mg/dL 02/27/2022 8:13 AM T [facility] HDL Cholesterol 34(L) >=40 mg/dL 8:13 AM T [facility] LDL, Calculated 8:13 AM [facility] Comment:Unable to calculate, raw result outside instrument reportable range. Non HDL Chol, Calculated 210(H) <=159 mg/dL 02/27/2022 8:13 AM [facility] Cholesterol/HDL Ratio 7.2 02/27/2022 8:13 AM [facility] Blood Venipuncture / Unknown 02/27/2022 7:09 AM CDT 02/27/2022 7:26 AM [facility] - 02/27/2022 8:13 AM [facility] Calculated LDL is invalid when Triglyceride is >400 mg/dL. Conchis Lopez PA-C LAB_[address] [address], [facility] [phone] from Last 3 Months or Most Recently Relevant to Health Maintenance Advance Directives * Full Code (Latest Code Status on File) Date Activated Date Inactivated Comments 01/11/2023 5:12 PM 01/12/2023 6:22 PM * Full Code Date Activated Date Inactivated Comments 02/25/2022 1:02 PM 03/06/2022 4:20 PM Care Teams Sheet Metal Helper Relationship Specialty Start Date End Date No Primary/Referring, Danutay PCP - General 06/26/22
--- OUTSIDE RECORDS SUMMARY | 2024-05-19 07:38 | XMS_ITS | Encounter Summary ---
Author Organization [facility] Address [address] [address] Care Team Providers Care Precision Lens Generator Name Role Phone No Primary/Referring, Phy Primary Care Provider Unavailable Reason for Visit * Reason Comments CRISIS EVALUATION--ED Encounter Details Date Type Department Care Team (Late st Contact Info) Description 03/21/2024 10:19 PM CDT - 03/22/2024 12:21 AM CDT [facility] [address] [place], [place] [id number] Jose Boles MD [address] [place], [place] [phone] Adjustment disorder with depressed mood (HRC) (Primary [...] pain + indigestion. Maximum 10 tablets/24 hours. Vsihlaq-Hrfymyacom-F enthol (VICKS VAPORUB EX) Apply topically underneath [...] by mouth daily at bedtime. nystatin (MYCOSTATIN) [id number] UNIT/GM cream Apply topically two times daily [...] Felipe RN - 03/22/2024 12:19 AM CDT [facility] ED Nursing Discharge Note Arrival Information: Patient arrived: Ambulance Patient escorted by: EMS/Ambulance Discharge Information: Patient discharged: Home Patient accompanied by: Accompanied By: Other ([facility]) Transport mode: Mode: Other (comment) ([place]) Discharge instructions given and explained to patient: Patient appropriately dressed for weather: Yes Transportation arranged: Yes senior sourcing manager/high school social studies tutor consulted prior to discharge: Yes LDA in [...] will be here within the hour to berry picker patient. outside maintenance worker called and confirmed fdc staff will be available for intake of patient. * Sri Ramos MSW, CLAIMS ADMINISTRATOR - 03/21/2024 10:39 PM CDT [facility] Emergency Department Social Work Brief Assessment [...] friends Family History: Not applicable Living Situation: snf Mental Health Care: Pt reports she has a psychiatrist and takes her medication as prescribed. Chemical use/abuse: Denies current Substance Use Plan: Patient will be discharged back to her . STEPH Mosley LICSW 03/21/2024, 11:47 PM * Brady Mello PA-C - 03/21/2024 10:22 PM CDT [facility] Emergency Medicine Visit Note Chief Complaint: No chief complaint on file. Elisa Jennings is a 29 y.o. old female with ADHD, Diabetes, Bipolar disorder, and autism presents to the ED with suicidal thoughts with plan to swallow batteries or drink mouth wash. She has not done anything to harm self today. Denies AH or VH. Denies Homicidal ideation. No other complaints. The history is provided by the patient. Triage Vitals [03/21/24 2233] Temp 97.2 ??F (36.2 ??C) Temp src Oral Pulse 92 Resp 18 BP 138/87 SpO2 100 % Physical Exam Vitals and nursing note reviewed. Constitutional: Appearance: Normal appearance. She is normal weight. HENT: Head: Normocephalic and atraumatic. Mouth/Throat: Mouth: Mucous membranes are moist. Pharynx: Oropharynx is clear. Eyes: Conjunctiva/sclera: Conjunctivae normal. Pupils: Pupils are equal, round, and reactive to light. Cardiovascular: Rate and Rhythm: Normal rate and regular rhythm. Pulmonary: Effort: Pulmonary effort is normal. Breath sounds: Normal breath sounds. Musculoskeletal: Cervical back: Normal range of motion and neck supple. Skin: General: Skin is warm and dry. Capillary Refill: Capillary refill takes less than 2 seconds. Neurological: Mental Status: She is alert. Psychiatric: Attention and Perception: Attention and perception normal. Mood and Affect: Mood normal. Speech: Speech normal. Behavior: Behavior normal. Behavior is cooperative. Thought Content: Thought content is not paranoid or delusional. Thought content includes suicidal ideation. Thought content does not include homicidal ideation. Thought content includes suicidal plan. Cognition and Memory: Cognition normal. MDM: Elisa Jennings is a 29 y.o. old female presenting with SI and agitation . Nursing Note reviewed. A mental health team assessment was completed with the patient. A high school social studies tutor, patient's Nurse and me were all present for the team assessment. After assessing this patient, it is my opinion that the patient does not have the means and/or intent to carryout out their suicidal plan while in e ED. The patient should be observed in Gamma pod on video monitor or by a 2:1 or 3:1 safety watch.. Vital signs as above. Exam suggests a low likelihood of an infectious or metabolic cause of current condition. outside maintenance worker consultation ordered. Based on initial physical exam and chart review lab work was not indicated at this time. outside maintenance worker contacted collateral and fdc patient is at her baseline and is safe for discharge (see sw note). Brady Mello PA-C Clinical Impressions as of 03/21/24 6416 Adjustment disorder with depressed mood (HRC) documented in this encounter Plan of Treatment Not on file documented as of this encounter Visit Diagnoses Diagnosis Adjustment disorder with depressed mood (HRC)- Primary Adjustment disorder with depressed mood * Triage Assessment Note - Jackeline Luo RN - 03/21/2024 10:26 PM CDT Mode of arrival: [facility] Chief complaint: crisis evaluation Symptoms/background/relevant history (narrative): The patients fdc called 911 today. The patient was agitated and threatening to kill herself.She attempted to swallow batteries and mouth wash. Staff intervened before she swallowed them. The patient also attempted to poke herself with sharp objects. No fox or abrasions noted on the patient at this time. Pt alert and orientated x4 Patient wanded upon arrival per security. documented in this encounter Care Teams Precision Lens Generator Relationship Specialty Start Date End Date No Primary/Referring, Ramon PCP - General 06/26/22 documented as of this encounter
--- OUTSIDE RECORDS SUMMARY | 2024-05-19 07:38 | XMS_ITS | Encounter Summary ---
Author Organization [facility] Address [address] [place] [address] Care Team Providers Care Major Account Representative Name Role Phone No Primary/Referring, Phy Primary Care Provider Unavailable Reason for Visit * Reason Comments CRISIS EVALUATION--ED Encounter Details Date Type Department Care Team (Late st Contact Info) Description 03/23/2024 8:22 PM CDT - 03/24/2024 12:58 AM CDT [facility] [address] [place], [place] [phone] Neyad Campbell PA-C [address] [place], [place] [phone] Adjustment disorder with mixed disturbance of emotions [...] finger, likely a bruise. You may use gocg-qmc-ounlsro medications for this. You may apply ice for 20 minutes multiple times daily for the next 2-3 days ifyou desire. Please follow-up with your outpatient providers including your psychiatrist if you feel you need any medication changes. Today you were given your evening gabapentin, Depakote, Clozaril, along with Haldol. * Attachments The following attachments cannot be sent through Care Everywhere. * Adjustment Disorder (Hong Konger) documented in this encounter Medications at Time [...] pain + indigestion. Maximum 10 tablets/24 hours. Acwqyjl-Qidckiqeia-T enthol (VICKS VAPORUB EX) Apply topically underneath [...] by mouth daily at bedtime. nystatin (MYCOSTATIN) [id number] UNIT/GM cream Apply topically two times daily [...] encounter Consult Notes * Summer Ambrose MSW, STRUCTURES TECHNICIAN - 03/23/2024 9:13 PM CDTAssociated Order(s): ED SOCIAL WORK CONSULT [facility] Emergency Department Social Work Crisis Assessment Current and Past Diagnoses: Mood Disorder (depression, bipolar), Other (see comments) (autism spectrum) Narrative: The patient is a 29 y.o. female who comes to the ED with medics. Per triage: Mode of arrival: [facility] Chief complaint: Crisis evaluation Symptoms/background/relevant history (narrative): The patient was at her snf when she became violent and trying to engage in self harm behavior. Staff called the police. They placed the patient on a hold and transported her to [facility]. Patient wanded upon arrival per security. RASHAD, NICOLE, and nurse assessed pt in g-pod. Pt is here w/a stuffed animal. She reports she doesn't know what led to her dysregulation today but say she does not feel safe at her snf. She says she believes she will harm herself at the snf. When asked what the difference between the [facility] and the hospital is, in terms [...] reports she does have an appt at [facility] where she will start a skills-building program. [...] collateral (include names and phone numbers) KIMBERLY ([facility], ) Kimberly reports that pt started escalating [...] pt and consulting w/provider, SW called the snf back and spoke w/a separate staff. They stated pt can return home but would not be attending her skills building appt as, whenever she goes to the hospital, she is ground for 2 days. Staff states they cannot steel pickler pt but sheis able to return home [...] or friends Family History: [place] Living Situation: [facility]DC Pt is the only resident who lives in the snf ([facility] Legal Issues (include comments regarding probation, incarcerations, etc): N/A Employment/Income: Pt is not employed. Mental Health Care: Stoker Installer: [place] Pride [facility] [place] Chris Sapp [phone] (-[facility]) Commitment History: [facility], 2021 Community Providers: Dr Panda Psychiatrist Hospitalizations: 01/10/2023, [facility], homicidal thoughts [...] the ED following an outburst at her snf that resulted in verbal threats and property destruction. Pt is experiencing baseline thoughts of self-harm but was able to identify protective factors, including upcoming appts for skill building to manage emotional regulation.Collaterals agree pt is at baseline and that they have behavioral management plans at the snf related to hospital visits and dysregulation. Her guardian would like her outpatient psychiatrist to manage any medication changes. Collateral agrees that the pt is not an immediate danger to self or others and would benefit from community resources vs inpatient hospitalization. Pt does not meet criteria for an emergency 72 hour hold and will be d/c to her snf where she has staff support. Suicide Risk: Plan: Patient will be discharged back to snf. Discussed with: STEPH Cazares PA-C, STRUCTURES TECHNICIAN 03/23/2024, 10:12 PM documented in this encounter ED Notes * Triny Marte RN - 03/24/2024 12:55 AM CDT [facility] ED Nursing Discharge Note Patient discharged: Home. [...] Campbell PA-C - 03/23/2024 8:39 PM CDT [facility] Emergency Medicine Visit Note Chief Complaint: CRISIS EVALUATION--ED HPI Elisa Jennings is a 29 y.o. female on chart review with a history of episodic mood disorder, intermittent explosive disorder, cluster B personality disorder, autism spectrum disorder, borderline intellectual functioning, who presents with medics from her snf for crisis evaluation. Per medic report, patient became elevated, throwing things in the snf, trying to engage in self-harmbehavior. Upon my [...] The patient will not require a 1-1 safety and security officer, but instead can be observed up to 3-1 safety watch or in Gamma pod Patient presents today from her snf with agitation and destructive behavior, suicidal ideations. Today's presentation is consistent with multiple previous presentations. Social work obtained collateral from snf. It sounds as though she was elevated [...] Jenny Campbell PA-C ED Course as of 03/23/24 2210 Sun Mar 23, 2024 273 Collateral obtained from snf and patient's guardian. [facility] requests patient sleep overnight in the ED [...] understands the plan. I spoke with the household assistant who was able to order the patient's evening Clozaril. Will plan for discharge back home with secure transport via [facility]. [DC] ED Course User Index [DC] Neyda [...] 03/23/2024 8:31 PM CDT Mode of arrival: [facility] Chief complaint: Crisis evaluation Symptoms/background/relevant history (narrative): The patient was at her snf when she became violent and trying to engage in self harm behavior. Staff called the police. They placed the patient on a hold and transported her to [facility]. Patient wanded upon arrival per security. documented [...] RN) documented in this encounter Care Teams Major Account Representative Relationship Specialty Start Date End Date No Primary/Referring, Phy PCP - General 06/26/22 documented as of this encounter
[2024-05-19] MEDS: ONDANSETRON ODT 4 MG TAB PO (08:08)
[2024-05-19] MEDS: FAMOTIDINE 20 MG TABLET PO (08:08)
[2024-05-19 08:12] LABS: Basophils Absolute Auto 0.01 K/uL (0.00-0.30); Basophils Percent Auto 0.1 % (0.0-3.0); Eosinophils Absolute Auto 0.15 K/uL (0.00-0.50); Eosinophils Percent Auto 1.6 % (0.0-7.0); Hematocrit 35.7 % (33.0-51.0); Hemoglobin* 11.2 gm/dL (12.0-16.0); Immature Granulocytes Abs Auto 0.01 K/uL (0.00-0.30); Immature Granulocytes Pct Auto 0.1 %; Lymphocytes Percent Auto 19.4 % (20-44); Mean Corpuscular HGB Conc 31 gm/dL (32-36); Mean Corpuscular Hemoglobin 29 pg (26-34); Mean Corpuscular Volume 92 fL (80-100); Monocytes Percent Auto 7.7 % (0.0-11.0); Neutrophils Absolute Auto 6.78 K/uL (1.7-7.0); Neutrophils Percent Auto 71.1 % (42.0-72.0); Platelet Count* 206 K/uL (140-440); RDW Coefficient of Variation % 16.2 % (11.5-15.5); Red Blood Count 3.88 m/uL (4.00-5.20); White Blood Count* 9.53 K/uL (4.50-11.00)
[2024-05-19 08:15] LABS: Slide Review Reflex No
[2024-05-19 08:22] LABS: Troponin, Point-of-Care* 0.01 ng/ml (0.01-0.04)
[2024-05-19 08:26] LABS: Albumin* 4.4 g/dL (3.3-5.0); Chloride* 107 mmol/L (96-114); Sodium* 140 mmol/L (135-149)
[2024-05-19 08:27] LABS: Potassium* 4.4 mmol/L (3.6-5.1)
[2024-05-19 08:29] LABS: Alkaline Phosphatase* 316 U/L (40-150); Anion Gap 10 mEq/L (7-15); Aspartate Amino Transferase* 65 U/L (12-35); Bilirubin Total* 0.8 mg/dL (0.1-1.5); Blood Urea Nitrogen* 46 mg/dL (5-24); Carbon Dioxide* 23 mmol/L (20-32); Creatinine* 2.3 mg/dL (0.5-1.5); Est. Creatinine Clearance* 33.06; Estimated Glomerular Filt Rate 29 ml/min
[2024-05-19 08:30] LABS: Alanine Aminotransferase* 70 U/L (4-35); Calcium* 9.6 mg/dL (8.4-10.6); Glucose* 115 mg/dL (60-115)
[2024-05-19 08:31] LABS: D Dimer Quantitative* 2.32 ug/ml (0.00-0.50)
[2024-05-19 08:39] LABS: NT Pro B Type NatriureticPept* 256 pg/mL
[2024-05-19 09:02] LABS: Lipase* 294 U/L (23-300)
--- NOTE | 2024-05-19 09:29 | CRLHL7_ITS ---
For Patients: As a result of the 21st Century Cures Act, medical imaging exams and procedure reports are released immediately into your electronic medical record. You may view this report before your referring provider. If you have questions, please contact your health care provider. INDICATION: Chest pain and elevated D-dimer, upper abdominal pain. COMPARISON: CT chest without contrast 01/22/2022 and 01/09/2022. CT chest with contrast 07/10/2021 TECHNIQUE: CT angiogram chest with contrast, pulmonary embolism protocol. Multiplanar axial, coronal, and sagittal reformats are included. MIP images to improve detection of pulmonary emboli are included. Intravenous contrast: 95 mL Isovue 370. FINDINGS: Systemic veins and pulmonary arteries: There is severe stenosis of the distal SVC just above the superior cavoatrial junction. There is significant venous collateralization in the anterior chest wall as well as in the azygous and flor azygous veins. Despite the degree of collateralization. There is still fair opacification of the pulmonary arteries. No central pulmonary embolus seen. Normal caliber main pulmonary artery. Normal sized right heart chambers. Large reflux of contrast below the diaphragm. Airway: Normal tracheobronchial tree. Lungs: Good lung volumes. There are few scattered calcified granulomas. No worrisome lung nodules. Small area of consolidation in the posterior dependent left lower lobe.. Normal appearance of the pulmonary interstitium. Pleura: No pleural effusion. No pneumothorax. Lymph nodes: No thoracic adenopathy. Mediastinum: No pneumomediastinum. No mass. Heart and great vessels: No pericardial effusion. Normal cardiac chamber size. Scattered atherosclerotic plaques. No aortic aneurysm. Chest wall: Normal. No masses. Upper abdomen: Hyperenhancement in the anterior left lobe of the liver is consistent with distal SVC stenosis. Bones: No fractures. No focal bone lesions. IMPRESSION: 1. 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 This is not a new finding. 2. No central pulmonary emboli. Contrast bolus timing limited by SVC stenosis. 3. Small area of consolidation in the left lower lobe may be pneumonia. Please note that all CT scans at this facility use dose modulation, iterative reconstruction, and/or weight-based dosing when appropriate to reduce radiation dose to as low as reasonably achievable. Dictated by Hortensia Vigil MD @ 05/19/2024 1:38:24 PM (Electronically Signed)
--- NOTE | 2024-05-19 09:29 | CRLHL7_ITS ---
For Patients: As a result of the Century Cures Act, medical imaging exams and procedure reports are released immediately into your electronic medical record. You may view this report before your referring provider. If you have questions, please contact your health care provider. INDICATION: Chest pain. Upper abdominal pain. Elevated D-dimer. TECHNIQUE: CT abdomen and pelvis acquired with 95 cc of Isovue 370 IV contrast. COMPARISON: CT chest same day. CT abdomen and pelvis without contrast 11/11/2021. FINDINGS: Lower chest: Small focus of dense consolidation in the posterior left lower lobe. No pleural or pericardial effusions. Numerous venous collaterals throughout the chest and abdominal wall consistent with previously noted stenosis of the distal SVC. Liver: Unremarkable. Spleen: Unremarkable. Pancreas: Unremarkable. Gallbladder and bile ducts: Cholecystectomy. No biliary ductal dilatation. Kidneys: No urolithiasis, hydronephrosis or suspicious lesion. Adrenal glands: Unremarkable. GI tract: No obstruction or focal inflammatory changes. Fecal loading of the colon. No free air or free fluid. Lymph nodes: No pathologic lymphadenopathy. Vascular structures: Unremarkable. Pelvic Organs: Unremarkable. Bones: No acute or suspicious osseous abnormality. IMPRESSION: 1. No acute intraabdominal or pelvic abnormality. 2. Left lower lobe opacity may reflect pneumonia in the appropriate clinical setting. Dictated by Vince Calderon MD @ 05/19/2024 1:46:56 PM Please note that all CT scans at this facility use dose modulation, iterative reconstruction, and/or weight-based dosing when appropriate to reduce radiation dose to as low as reasonably achievable. Dictated by: Vince Calderon MD @ 05/19/2024 13:47:12 (Electronically Signed)
[2024-05-19 09:33] LABS: Appearance Urine Clear (Clear); Bilirubin Urine Negative (Negative); Blood Urine Negative (Negative); Color Urine Yellow (Yellow); Glucose Urine Negative (Negative); Ketones Urine Negative (Negative); Leukocyte Esterase Urine Negative (Negative); Nitrite Urine Negative (Negative); Protein Urine 2+ (Negative); Urobilinogen Urine 0.2 (0.2-1.0)
[2024-05-19 09:40] LABS: Bacteria Urine Few; RBC Urine 0-2 (0-2); Squamous Epithelial Cell Urine Few (None-Few); WBC Urine 0-2 (0-5)
== END 2024-05-19 14:44 | disposition home or self-care (01) ==
PROVIDERS: Family Medicine; Emergency Provider Emergency Medicine
DX: J18.9 Pneumonia, unspecified organism (principal); I87.1 Compression of vein; R10.9 Unspecified abdominal pain
CPT/HCPCS: 36415; 71275; 74177; 80053; 81001; 81003; 83690; 83880; 84484; 85025; 85379; 87086; 93005; 99284; 99285; A9270; Q9967

== ENCOUNTER 2024-07-02 18:50 | Outpatient (CLI) | payer MEDICARE, OTHER, SELFPAY | END 2024-07-02 18:51 | disposition home or self-care (01) | LOC: AMB 07-05 10:13 | PROVIDERS: Visit Provider Family Medicine | DX: R45.851 Suicidal ideations (principal) | CPT/HCPCS: A0425; A0429 ==

== ENCOUNTER 2024-08-03 19:30 | Outpatient (CLI) | payer MEDICARE, OTHER, SELFPAY | END 2024-08-03 19:31 | disposition home or self-care (01) | LOC: AMB 08-04 15:16 | PROVIDERS: Visit Provider Family Medicine | DX: R45.851 Suicidal ideations (principal) | CPT/HCPCS: A0425; A0429 ==

== ENCOUNTER 2024-08-23 17:40 | Outpatient (CLI) | payer MEDICARE, OTHER, SELFPAY | END 2024-08-23 17:41 | disposition home or self-care (01) | LOC: AMB 08-24 07:33 | PROVIDERS: Visit Provider Family Medicine | DX: F91.9 Conduct disorder, unspecified (principal) | CPT/HCPCS: A0425; A0427 ==

== ENCOUNTER 2024-10-09 19:08 | Outpatient (CLI) | payer MEDICARE, OTHER, SELFPAY | END 2024-10-09 19:09 | disposition home or self-care (01) | LOC: AMB 10-17 01:15 | PROVIDERS: Visit Provider Student in an Organized Health Care Education/Training Program | DX: F91.9 Conduct disorder, unspecified (principal) | CPT/HCPCS: A0425; A0429 ==

== ENCOUNTER 2025-04-26 19:29 | Outpatient (CLI) | payer MEDICARE, OTHER, SELFPAY | END 2025-04-26 19:30 | disposition home or self-care (01) | LOC: AMB 04-29 16:20 | PROVIDERS: Visit Provider Family Medicine | DX: R30.0 Dysuria (principal); R10.9 Unspecified abdominal pain | CPT/HCPCS: A0998 ==

== ENCOUNTER 2025-05-16 22:00 | Outpatient (CLI) | payer MEDICARE, OTHER, SELFPAY | END 2025-05-16 22:01 | disposition home or self-care (01) | LOC: AMB 05-18 11:30 | PROVIDERS: Visit Provider Family Medicine | DX: F91.9 Conduct disorder, unspecified (principal) | CPT/HCPCS: A0425; A0427 ==

== ENCOUNTER 2025-05-17 17:59 | Outpatient (CLI) | payer MEDICARE, OTHER, SELFPAY | END 2025-05-17 18:00 | disposition home or self-care (01) | LOC: AMB 05-18 12:50 | PROVIDERS: Visit Provider Student in an Organized Health Care Education/Training Program | DX: R45.851 Suicidal ideations (principal) | CPT/HCPCS: A0425; A0427 ==

== ENCOUNTER 2025-07-04 12:53 | Outpatient (CLI) | payer MEDICARE, OTHER, SELFPAY | END 2025-07-04 12:54 | disposition home or self-care (01) | PROVIDERS: Visit Provider Internal Medicine | DX: R45.851 Suicidal ideations (principal) | CPT/HCPCS: A0425; A0427 ==

== ENCOUNTER 2025-07-05 14:41 | Outpatient (CLI) | payer MEDICARE, OTHER, SELFPAY | END 2025-07-05 14:42 | disposition home or self-care (01) | PROVIDERS: Visit Provider Emergency Medicine Emergency Medical Services | DX: R45.851 Suicidal ideations (principal) | CPT/HCPCS: A0425; A0427 ==

== ENCOUNTER 2025-07-06 02:16 | Outpatient (CLI) | payer MEDICARE, OTHER, SELFPAY | END 2025-07-06 02:17 | disposition home or self-care (01) | LOC: AMB 07-09 11:03 | PROVIDERS: Visit Provider Family Medicine | DX: F91.9 Conduct disorder, unspecified (principal) | CPT/HCPCS: A0425; A0429 ==

== ENCOUNTER 2025-07-20 20:05 | Outpatient (CLI) | payer MEDICARE, OTHER, SELFPAY | END 2025-07-20 20:06 | disposition home or self-care (01) | LOC: SLEEP 20:05 | PROVIDERS: Visit Provider Internal Medicine | DX: G47.33 Obstructive sleep apnea (adult) (pediatric) (principal); G47.10 Hypersomnia, unspecified | CPT/HCPCS: 95810 ==

== ENCOUNTER 2025-11-09 22:00 | Outpatient (CLI) | payer MEDICARE, OTHER, SELFPAY | END 2025-11-09 22:01 | disposition home or self-care (01) | LOC: AMB 11-11 13:18 | PROVIDERS: Visit Provider Family Medicine | DX: F29 Unspecified psychosis not due to a substance or known physiological condition (principal); F91.9 Conduct disorder, unspecified | CPT/HCPCS: A0425; A0427 ==

== ENCOUNTER 2025-11-13 23:02 | Outpatient (CLI) | payer MEDICARE, OTHER, SELFPAY | END 2025-11-13 23:03 | disposition home or self-care (01) | LOC: AMB 11-18 13:32 | PROVIDERS: Visit Provider Emergency Medicine | DX: R45.851 Suicidal ideations (principal) | CPT/HCPCS: A0425; A0429 ==